=== PATIENT | female | born 1975 | race Caucasian/White ===

== ENCOUNTER → 2017-01-13 | Outpatient (REF) | payer OTHER ==
[2017-01-13 13:59] LABS: CONTROL LINE HCG INT CTR LINE PRESENT
[2017-01-13 14:11] LABS: BLOOD UREA NITROGEN 11 MG/DL (7-18); CREATININE FOR GFR 0.79 MG/DL (0.55-1.02); GLOMERULAR FILTRATION RATE > 60.0 (>58)
== END ==
LOC: M LABDRAW1 12:41
PROVIDERS: ATTEND Physical Medicine & Rehabilitation
DX: Z01.812 Encounter for preprocedural laboratory examination (principal)

== ENCOUNTER → 2017-01-13 | Outpatient (REF) | payer OTHER ==
[2017-01-13 15:22] LABS: ALBUMIN 3.4 GM/DL (3.2-5.2); ALBUMIN/GLOBULIN RATIO 1.21 (1.00-1.93); ALKALINE PHOSPHATASE 85 U/L (45-117); ALT/SGPT 17 U/L (12-78); ANION GAP 11 MEQ/L (8-16); AST/SGOT 11 U/L (15-37); BILIRUBIN,TOTAL 0.5 MG/DL (0.2-1.0); BLOOD UREA NITROGEN 12 MG/DL (7-18); CALCIUM LEVEL 8.7 MG/DL (8.5-10.1); CARBON DIOXIDE LEVEL 26 MEQ/L (21-32); CHLORIDE LEVEL 106 MEQ/L (98-107); CHOLESTEROL LEVEL 189 MG/DL (<200); CREATININE FOR GFR 0.79 MG/DL (0.55-1.02); FREE T4 0.93 NG/DL (0.76-1.46); GLOMERULAR FILTRATION RATE > 60.0 (>58); GLUCOSE, FASTING 93 MG/DL (70-105); POTASSIUM SERUM 4.1 MEQ/L (3.5-5.1); SODIUM LEVEL 143 MEQ/L (136-145); TOTAL PROTEIN 6.2 GM/DL (6.4-8.2); TRIGLYCERIDES LEVEL 139 MG/DL (<150)
== END ==
LOC: M LABDRAW1 12:40
PROVIDERS: ATTEND Physician Assistant Medical
DX: E55.9 Vitamin D deficiency, unspecified (principal); F43.21 Adjustment disorder with depressed mood; R63.5 Abnormal weight gain; E88.81 Metabolic syndrome and other insulin resistance

== ENCOUNTER → 2017-03-13 | Outpatient (REF) | payer OTHER ==
[2017-03-13 12:32] LABS: CONTROL LINE HCG INT CTR LINE PRESENT
== END ==
LOC: M LABDRAW1 11:37
PROVIDERS: ATTEND Physical Medicine & Rehabilitation
DX: Z01.812 Encounter for preprocedural laboratory examination (principal); M47.816 Spondylosis without myelopathy or radiculopathy, lumbar region

== ENCOUNTER → 2017-04-25 | Outpatient (REF) | payer OTHER | LOC: M LAB REF 12:46 | PROVIDERS: ATTEND Physician Assistant Medical | DX: J02.9 Acute pharyngitis, unspecified (principal) ==

== ENCOUNTER → 2017-05-28 | Outpatient (REF) | payer OTHER ==
[2017-05-28 12:32] LABS: INR 0.96
[2017-05-28 12:39] LABS: CONTROL LINE HCG INT CTR LINE PRESENT
== END ==
LOC: M LABDRAW1 12:09
PROVIDERS: ATTEND Physical Medicine & Rehabilitation
DX: Z01.812 Encounter for preprocedural laboratory examination (principal); M51.37 Other intervertebral disc degeneration, lumbosacral region

== ENCOUNTER → 2017-09-15 | Outpatient (REF) | payer OTHER ==
[2017-09-15 12:23] LABS: CONTROL LINE HCG INT CTR LINE PRESENT
== END ==
LOC: M LABDRAW1 09:04
PROVIDERS: ATTEND Physical Medicine & Rehabilitation
DX: M51.37 Other intervertebral disc degeneration, lumbosacral region (principal)

== ENCOUNTER → 2017-09-15 | Outpatient (REF) | payer OTHER | LOC: M LABDRAW1 09:06 | PROVIDERS: ATTEND Physician Assistant Medical | DX: E55.9 Vitamin D deficiency, unspecified (principal) ==

== ENCOUNTER → 2017-12-30 | Outpatient (REF) | payer OTHER ==
[2017-12-31 08:17] LABS: CONTROL LINE HCG INT CTR LINE PRESENT; HCG, SERUM QUALITATIVE NEGATIVE (NEGATIVE)
== END ==
LOC: M LAB REF 08:05
DX: Z31.49 Encounter for other procreative investigation and testing (principal)

== ENCOUNTER → 2018-03-24 | Outpatient (REF) | payer OTHER ==
[2018-03-24 10:51] LABS: PLATELET COUNT, AUTOMATED 237 10^3/uL (150-450)
[2018-03-24 10:59] LABS: PROTHROMBIN TIME 13.3 SECONDS (12.4-14.5)
[2018-03-24 11:00] LABS: PARTIAL THROMBOPLASTIN TIME 30.4 SECONDS (26.8-37.9)
[2018-03-24 11:06] LABS: CONTROL LINE HCG INT CTR LINE PRESENT; HCG, SERUM QUALITATIVE NEGATIVE (NEGATIVE)
== END ==
LOC: M LABDRAW1 09:06
DX: M51.37 Other intervertebral disc degeneration, lumbosacral region (principal)

== ENCOUNTER → 2018-07-17 | Outpatient (REF) | payer OTHER ==
[2018-07-17 15:32] LABS: CONTROL LINE HCG INT CTR LINE PRESENT; HCG, SERUM QUALITATIVE NEGATIVE (NEGATIVE)
== END ==
LOC: M LABDRAW1 11:32
DX: M47.817 Spondylosis without myelopathy or radiculopathy, lumbosacral region (principal)

== ENCOUNTER → 2018-10-13 | Outpatient (REF) | payer OTHER ==
[2018-10-13 12:40] LABS: BASO # 0.1 10^3/uL (0.0-0.2); BASO % 1.1 % (0.0-1.0); EOS # 0.6 10^3/uL (0.0-0.50); EOS % 7.8 % (0.0-3.0); HEMATOCRIT 46.4 % (36.0-47.0); HEMOGLOBIN 15.9 g/dl (12.0-15.5); IMMATURE GRANULOCYTE % 0.3 % (0-3.0); LYMPH # 1.9 10^3/uL (1.5-4.5); LYMPH % 26.8 % (24.0-44.0); MEAN CORPUSCULAR HGB CONC 34.3 g/dl (32.0-36.5); MEAN CORPUSCULAR VOLUME 96.3 fl (80.0-96.0); MONO # 0.7 10^3/uL (0.0-0.8); MONO % 9.3 % (0.0-5.0); NEUTROPHILS # 3.9 10^3/uL (1.8-7.7); NEUTROPHILS % 54.7 % (36.0-66.0); PLATELET COUNT, AUTOMATED 233 10^3/uL (150-450); RED BLOOD COUNT 4.82 10^6/uL (4.00-5.40); RED CELL DISTRIBUTION WIDTH 12.9 % (11.5-14.5); WHITE BLOOD COUNT 7.2 10^3/uL (4.0-10.0)
[2018-10-13 12:54] LABS: ESTIMATED AVERAGE GLUCOSE 105 MG/DL (60-110); HEMOGLOBIN A1c 5.3 %
[2018-10-13 13:00] LABS: ALBUMIN 3.4 GM/DL (3.2-5.2); ALBUMIN/GLOBULIN RATIO 1.26 (1.00-1.93); ALKALINE PHOSPHATASE 64 U/L (45-117); ALT/SGPT 13 U/L (12-78); ANION GAP 6 MEQ/L (8-16); AST/SGOT 9 U/L (7-37); BILIRUBIN,TOTAL 0.6 MG/DL (0.2-1.0); BLOOD UREA NITROGEN 9 MG/DL (7-18); CALCIUM LEVEL 8.4 MG/DL (8.5-10.1); CARBON DIOXIDE LEVEL 28 MEQ/L (21-32); CHLORIDE LEVEL 108 MEQ/L (98-107); CREATININE FOR GFR 0.76 MG/DL (0.55-1.30); FREE T4 0.98 NG/DL (0.76-1.46); GLOMERULAR FILTRATION RATE > 60.0 (>58); GLUCOSE, FASTING 81 MG/DL (70-100); POTASSIUM SERUM 4.1 MEQ/L (3.5-5.1); SODIUM LEVEL 142 MEQ/L (136-145); THYROID STIMULATING HORMONE 0.682 uIU/ML (0.358-3.740); TOTAL 25(OH) VITAMIN D 57.1 NG/ML (30.0-100.0); TOTAL PROTEIN 6.1 GM/DL (6.4-8.2)
== END ==
LOC: M LABDRAW1 11:57
DX: E88.81 Metabolic syndrome and other insulin resistance (principal); E55.9 Vitamin D deficiency, unspecified; R53.83 Other fatigue
CPT/HCPCS: 84443

== ENCOUNTER → 2018-11-18 | Outpatient (REF) | payer OTHER ==
[2018-11-18 11:29] LABS: PARTIAL THROMBOPLASTIN TIME 30.3 SECONDS (25.4-37.6); PROTHROMBIN TIME 13.3 SECONDS (12.1-14.4)
== END ==
LOC: M LABDRAW1 10:51
PROVIDERS: ATTEND Physician Assistant
DX: Z01.812 Encounter for preprocedural laboratory examination (principal)

== ENCOUNTER → 2018-12-15 | Outpatient (REF) | payer OTHER ==
[2018-12-15 19:24] LABS: URINE PREG TEST NEGATIVE (NEGATIVE)
== END ==
LOC: M LAB REF 16:58
PROVIDERS: ATTEND Physical Medicine & Rehabilitation
DX: M51.37 Other intervertebral disc degeneration, lumbosacral region (principal)

== ENCOUNTER → 2019-05-19 | Outpatient (REF) | payer OTHER ==
[2019-05-19 16:10] LABS: HCG, SERUM QUALITATIVE NEGATIVE (NEGATIVE); INR 1.06; PROTHROMBIN TIME 13.5 SECONDS (11.8-14.0)
== END ==
LOC: M LABDRAW1 15:39
PROVIDERS: ATTEND Physical Medicine & Rehabilitation
DX: Z01.812 Encounter for preprocedural laboratory examination (principal)

== ENCOUNTER → 2019-09-08 | Outpatient (REF) | payer OTHER ==
[2019-09-08 16:30] LABS: HCG, SERUM QUALITATIVE NEGATIVE (NEGATIVE)
== END ==
LOC: M LABDRAW1 14:51
PROVIDERS: ATTEND Physician Assistant
DX: M48.061 Spinal stenosis, lumbar region without neurogenic claudication (principal)

== ENCOUNTER → 2019-12-29 | Outpatient (REF) | payer OTHER | LOC: M LABDRAW1 14:35 | PROVIDERS: ATTEND Physical Medicine & Rehabilitation | DX: M48.061 Spinal stenosis, lumbar region without neurogenic claudication (principal) ==

== ENCOUNTER → 2020-04-04 | Outpatient (REF) | payer OTHER ==
[2020-04-04 19:58] LABS: CHLAMYDIA DNA AMPLIFICATION NEGATIVE (NEGATIVE); GC DNA AMPLIFICATION NEGATIVE (NEGATIVE)
== END ==
LOC: M SFHCWAGY 18:08
PROVIDERS: ATTEND Advanced Practice Midwife
DX: Z12.4 Encounter for screening for malignant neoplasm of cervix (principal); R10.2 Pelvic and perineal pain

== ENCOUNTER → 2020-04-13 | Outpatient (CLI) | payer OTHER ==
--- NOTE | 2020-04-13 14:42 | REPMRS ---
Patient History The patient states she had a clinical breast exam in March 2020. Family history of breast cancer at age 36 in maternal grandmother, breast cancer at age 32 in maternal aunt, unknown cancer at age 58 in maternal uncle. Took hormonal contraceptives for 6 years. Digital Woman Screen Mammo: April 13, 2020 - Exam #: [id number] Bilateral CC and MLO view(s) were taken. Technologist: Elizabeth Alcaraz, Technologist Prior study comparison: October 13, 2018, bilateral digital woman screen mammo, performed at [facility]. September 15, 2017, bilateral digital woman screen mammo, performed at [facility]. August 08, 2016, bilateral digital woman screen mammo, performed at [facility]. FINDINGS: There are scattered fibroglandular densities. The Volpara volumetric breast density category is:A. There has been no change in the appearance of the mammogram from the prior studies. There is a mild amount of scattered fibroglandular density which is fairly symmetric. There is no interval development of dominant mass, architectural distortion, or grouped microcalcification suggestive of malignancy. 3-D tomosynthesis shows no additional findings. Assessment: BI-RADS/ACR category 1 mammogram. Negative Mammogram. Recommendation Breast MRI of both breasts in 6 months. Routine screening mammogram of both breasts in 1 year (for women over age 40). This patient's Lifetime Breast Cancer Risk is estimated at 20.6 %. Annual screening Breast MRI scanniing is recommended for patient's whose lifetime risk assessment is over 20%. This mammogram was interpreted with the aid of an FDA-approved computer-aided dectection system. Electronically Signed By: Anastacio Ratliff MD 04/13/20 [id number]
--- NOTE | 2020-04-14 02:21 | REP ---
Clinical: Pelvic pain. Technique: Transabdominal pelvic ultrasound followed by transvaginal examination for better evaluation of the endometrium and adnexa with color Doppler evaluation of the ovaries. Findings: Bladder is unremarkable and measures 7.8 x 7.5 x 4.5 cm . Normal anteverted uterus measures 8.4 x 3.9 x 4.4 cm . The endometrial complex measures 14 mm thickness. No discrete uterine or endometrial abnormalities are appreciated. Bilateral ovaries are normal in appearance and vascularity without evidence for torsion. Right ovary measures 3.4 x 2.8 x 1.6 cm ; R I = 0.62 . Left ovary measures 2.8 x 2.1 x 2.6 cm ; R I = 0.52 . No pelvic fluid or adnexal mass lesion . Impression: 1. Normal pelvic ultrasound.
== END ==
LOC: M WHC 13:30
PROVIDERS: ATTEND Advanced Practice Midwife
DX: Z12.31 Encounter for screening mammogram for malignant neoplasm of breast (principal); R10.2 Pelvic and perineal pain; Z92.0 Personal history of contraception

== ENCOUNTER → 2021-03-27 | Outpatient (REF) | payer OTHER ==
[2021-03-27 17:20] LABS: BASO # 0.1 10^3/uL (0.0-0.2); BASO % 0.9 % (0.0-1.0); EOS # 0.7 10^3/uL (0.0-0.5); EOS % 8.7 % (0.0-3.0); HEMATOCRIT 49.7 % (36.0-47.0); HEMOGLOBIN 16.1 g/dl (12.0-15.5); LYMPH # 2.1 10^3/uL (1.5-5.0); LYMPH % 27.1 % (24.0-44.0); MEAN CORPUSCULAR HEMOGLOBIN 31.1 pg (27.0-33.0); MEAN CORPUSCULAR HGB CONC 32.4 g/dl (32.0-36.5); MEAN CORPUSCULAR VOLUME 95.9 fl (80.0-96.0); MONO # 0.7 10^3/uL (0.0-0.8); MONO % 8.4 % (2.0-8.0); NEUTROPHILS # 4.3 10^3/uL (1.5-8.5); NEUTROPHILS % 54.3 % (36.0-66.0); PLATELET COUNT, AUTOMATED 278 10^3/uL (150-450); RED BLOOD COUNT 5.18 10^6/uL (4.00-5.40); WHITE BLOOD COUNT 7.9 10^3/uL (4.0-10.0)
[2021-03-27 18:03] LABS: ALBUMIN 3.1 GM/DL (3.2-5.2); ALT/SGPT 21 U/L (12-78); BILIRUBIN,DIRECT 0.2 MG/DL (0.0-0.2); BILIRUBIN,TOTAL 0.7 MG/DL (0.2-1.0); BLOOD UREA NITROGEN 10 MG/DL (7-18); CALCIUM LEVEL 8.8 MG/DL (8.5-10.1); CARBON DIOXIDE LEVEL 29 MEQ/L (21-32); CHLORIDE LEVEL 106 MEQ/L (98-107); CHOLESTEROL LEVEL 237 MG/DL (<200); CHOLESTEROL RISK RATIO 5.152 (<5); GLOMERULAR FILTRATION RATE > 60.0 (>58); GLUCOSE, FASTING 93 MG/DL (70-100); GLUCOSE,RANDOM 93 MG/DL (LESS THAN 200); HDL CHOLESTEROL 46 MG/DL (>40); LDL CHOLESTEROL 150 MG/DL (<100); NON-HDL-C 191 MG/DL; PHOSPHORUS LEVEL 3.5 MG/DL (2.5-4.9); POTASSIUM SERUM 4.3 MEQ/L (3.5-5.1); SODIUM LEVEL 142 MEQ/L (136-145); TOTAL PROTEIN 6.6 GM/DL (6.4-8.2); TRIGLYCERIDES LEVEL 207 MG/DL (<150)
[2021-03-27 18:06] LABS: TOTAL 25(OH) VITAMIN D 20.2 NG/ML (30.0-100.0)
[2021-03-27 18:35] LABS: HEMOGLOBIN A1c 5.3 %
== END ==
LOC: M LAB REF 16:29
PROVIDERS: ATTEND Registered Nurse
DX: F31.4 Bipolar disorder, current episode depressed, severe, without psychotic features (principal); Z51.81 Encounter for therapeutic drug level monitoring; Z13.9 Encounter for screening, unspecified; E55.9 Vitamin D deficiency, unspecified; Z79.899 Other long term (current) drug therapy

== ENCOUNTER → 2021-03-27 | Outpatient (REF) | payer OTHER ==
[2021-03-27 17:30] LABS: BASO # 0.1 10^3/uL (0.0-0.2); BASO % 0.9 % (0.0-1.0); EOS # 0.7 10^3/uL (0.0-0.5); EOS % 8.9 % (0.0-3.0); HEMATOCRIT 49.5 % (36.0-47.0); HEMOGLOBIN 15.9 g/dl (12.0-15.5); LYMPH # 2.2 10^3/uL (1.5-5.0); LYMPH % 27.5 % (24.0-44.0); MEAN CORPUSCULAR HEMOGLOBIN 30.9 pg (27.0-33.0); MEAN CORPUSCULAR HGB CONC 32.1 g/dl (32.0-36.5); MEAN CORPUSCULAR VOLUME 96.3 fl (80.0-96.0); MONO # 0.6 10^3/uL (0.0-0.8); MONO % 7.9 % (2.0-8.0); NEUTROPHILS # 4.3 10^3/uL (1.5-8.5); NEUTROPHILS % 54.4 % (36.0-66.0); PLATELET COUNT, AUTOMATED 299 10^3/uL (150-450); RED BLOOD COUNT 5.14 10^6/uL (4.00-5.40); WHITE BLOOD COUNT 7.9 10^3/uL (4.0-10.0)
[2021-03-27 18:03] LABS: ALBUMIN 3.2 GM/DL (3.2-5.2); ALT/SGPT 20 U/L (12-78); BILIRUBIN,TOTAL 0.7 MG/DL (0.2-1.0); BLOOD UREA NITROGEN 10 MG/DL (7-18); CALCIUM LEVEL 9.2 MG/DL (8.5-10.1); CARBON DIOXIDE LEVEL 29 MEQ/L (21-32); CHLORIDE LEVEL 104 MEQ/L (98-107); CHOLESTEROL LEVEL 229 MG/DL (<200); CHOLESTEROL RISK RATIO 5.088 (<5); CREATININE FOR GFR 0.76 MG/DL (0.55-1.30); GLOMERULAR FILTRATION RATE > 60.0 (>58); GLUCOSE, FASTING 97 MG/DL (70-100); HDL CHOLESTEROL 45 MG/DL (>40); LDL CHOLESTEROL 144 MG/DL (<100); NON-HDL-C 184 MG/DL; POTASSIUM SERUM 4.2 MEQ/L (3.5-5.1); SODIUM LEVEL 141 MEQ/L (136-145); TOTAL PROTEIN 6.6 GM/DL (6.4-8.2); TRIGLYCERIDES LEVEL 202 MG/DL (<150)
[2021-03-27 18:05] LABS: TOTAL 25(OH) VITAMIN D 21.8 NG/ML (30.0-100.0)
== END ==
LOC: M SFHCADAM 15:08
PROVIDERS: ATTEND Physician Assistant Medical
DX: E66.01 Morbid (severe) obesity due to excess calories (principal); M41.26 Other idiopathic scoliosis, lumbar region; F31.9 Bipolar disorder, unspecified; F41.9 Anxiety disorder, unspecified

== ENCOUNTER → 2021-05-08 | Outpatient (CLI) | payer OTHER ==
[~2021-05-08] MED LIST: PROHANCE 279.3MG/ML 15ML VIAL As Ordered ONE; PROHANCE 279.3MG/ML 5ML VIAL As Ordered ONE
--- NOTE | 2021-05-08 20:10 | REPVR ---
PROCEDURE INFORMATION: Exam: MR Lumbar Spine Without and With Contrast Exam date and time: 05/08/2021 7:06 PM Age: 45 years old Clinical indication: Prior surgery; Surgery date: 6+ months; Patient HX: Low back pain, pain injections no longer helping, PT had spinal fusion 2016; Additional info: Deviated nasal septum TECHNIQUE: Imaging protocol: Multiplanar magnetic resonance images of the lumbar spine without and with intravenous contrast. Contrast material: PROHANCE; Contrast volume: 20 ml; Contrast route: INTRAVENOUS (IV); COMPARISON: No relevant prior studies available. FINDINGS: Vertebrae: There is a T12 hemangioma. Extensive hardware susceptibility artifacts limiting visualization of the vertebral bodies from L1 through L5. Prior posterolateral fusion and posterior pedicle screw fixation from L1-L2 through L4-L5. Prior interbody grafting at L3-L4 and L4-L5. 4 mm of degenerative retrolisthesis of L5 on S1. No visible acute fracture. Spinal cord: The conus medullaris ends normally. Mild disc height loss and spondylosis with likely endplate inflammation at L5-S1. L1-L2: The central spinal canal and foramina are not visualized. L2-L3: The central spinal canal and foramina are not visualized. L3-L4: The central spinal canal and foramina are not visualized. L4-L5: Postoperative changes. The central spinal canal and foramina are patent. L5-S1: Diffuse disc osteophyte complex as well as marked facet arthropathy with facet joint effusions. Broad-based cranially migrating left-sided disc extrusion demonstrating paracentral to foraminal components measuring approximately 4-5 mm in AP dimension and extending 4-5 mm above the disc space. No significant central spinal canal stenosis. The thecal sac is tapered by epidural fat. Disc material contacts the left S1 nerve root without compression or displacement. Poor visualization of the left neural foramen due to hardware susceptibility artifacts. There may be mild to moderate narrowing, disc material potentially contacting the exiting left L5 nerve root. Soft tissues: Posterior paravertebral fluid collection seen from the levels of L2 through L4 spanning a craniocaudal length of 8.6 cm and measuring up to 1.8 cm in AP dimension, potentially non-compressive seroma. No visible significant enhancement. Reproductive: The visualized left ovary demonstrates small follicles. IMPRESSION: 1. Limited study due to hardware artifacts. 2. Degenerative disc disease at L5-S1, the level below a lumbar fusion. 3. Suspect a component of cranially migrating left-sided disc extrusion, disc material may contact the exiting left L5 nerve root. 4. Severe L5-S1 facet arthropathy with facet joint effusions. Electronically signed by: Eden Freeman On 05/08/2021 20:10:33 PM
== END ==
LOC: M RAD 17:47
PROVIDERS: ATTEND Nurse Practitioner Family
DX: M54.16 Radiculopathy, lumbar region (principal)
CPT/HCPCS: 72158; A9576

== ENCOUNTER → 2021-07-03 | Outpatient (REF) | payer OTHER ==
[2021-07-03 17:59] LABS: BASO # 0.1 10^3/uL (0.0-0.2); BASO % 0.6 % (0.0-1.0); EOS # 0.2 10^3/uL (0.0-0.5); EOS % 2.1 % (0.0-3.0); HEMATOCRIT 50.6 % (36.0-47.0); LYMPH # 4.1 10^3/uL (1.5-5.0); LYMPH % 38.1 % (24.0-44.0); MEAN CORPUSCULAR HEMOGLOBIN 31.9 pg (27.0-33.0); MEAN CORPUSCULAR HGB CONC 33.6 g/dl (32.0-36.5); MEAN CORPUSCULAR VOLUME 94.9 fl (80.0-96.0); MONO # 0.8 10^3/uL (0.0-0.8); MONO % 7.2 % (2.0-8.0); NEUTROPHILS # 5.6 10^3/uL (1.5-8.5); NEUTROPHILS % 51.7 % (36.0-66.0); PLATELET COUNT, AUTOMATED 278 10^3/uL (150-450); RED BLOOD COUNT 5.33 10^6/uL (4.00-5.40); WHITE BLOOD COUNT 10.7 10^3/uL (4.0-10.0)
[2021-07-03 18:11] LABS: INR 0.91; PROTHROMBIN TIME 12.6 SECONDS (12.7-14.5)
[2021-07-03 18:12] LABS: PARTIAL THROMBOPLASTIN TIME 26.5 SECONDS (25.9-37.0)
[2021-07-03 18:26] LABS: ALBUMIN 3.2 GM/DL (3.2-5.2); ALT/SGPT 45 U/L (12-78); BILIRUBIN,TOTAL 0.9 MG/DL (0.2-1.0); BLOOD UREA NITROGEN 11 MG/DL (7-18); CALCIUM LEVEL 8.5 MG/DL (8.5-10.1); CARBON DIOXIDE LEVEL 25 MEQ/L (21-32); CHLORIDE LEVEL 106 MEQ/L (98-107); CREATININE FOR GFR 0.82 MG/DL (0.55-1.30); GLOMERULAR FILTRATION RATE > 60.0 (>58); GLUCOSE, FASTING 88 MG/DL (70-100); NT-PRO BNP 93 PG/ML (<125); POTASSIUM SERUM 3.9 MEQ/L (3.5-5.1); SODIUM LEVEL 140 MEQ/L (136-145); TOTAL PROTEIN 6.2 GM/DL (6.4-8.2)
[2021-07-03 18:27] LABS: VITAMIN B12 LEVEL 361 PG/ML (247-911)
[2021-07-03 18:45] LABS: HEMOGLOBIN A1c 5.3 %
== END ==
LOC: M LABDRWAD 16:39
PROVIDERS: ATTEND Family Medicine
DX: E66.01 Morbid (severe) obesity due to excess calories (principal)

== ENCOUNTER → 2021-07-06 | Outpatient (CLI) | payer OTHER | LOC: M LABSMTC 12:14 | PROVIDERS: ATTEND Orthopaedic Surgery Orthopaedic Surgery of the Spine | DX: Z11.52 Encounter for screening for COVID-19 (principal) ==

== ENCOUNTER 2021-09-05 16:36 | Emergency (ER) | payer OTHER ==
[~2021-09-05] VITALS: Ht 165.1 cm; Wt 124.4 kg
[2021-09-05 16:38] VITALS: BP 119/65
[2021-09-05] MEDS ORDERED: PREG100C (16:47)
[2021-09-05] MEDS ORDERED: DULO1CAP5 (16:47)
[2021-09-05] MEDS ORDERED: LATU120T (16:47)
[2021-09-05] MEDS ORDERED: CELE1CAP7 (16:47)
--- OUTSIDE RECORDS SUMMARY | 2021-10-31 07:01 | CCD ---
Author Author [employer] Organization [employer] Address Unknown Phone Unavailable Care Team Providers Care Mechanic Assistant Name Role Phone Unavailable Unavailable Problems Condition Name Condition Details Condition Category Status Onset Date Resolution Date Last Treatment Date Treating Clinician Comments Postlaminectomy syndrome, not elsewhere classified Pos tlaminectomy syndrome, not elsewhere classified Diagnosis Active Fanny Co oley Encounter for adjustment and management of vascular ac cess device Encounter for adjustment and management of vascular access device Diagnosis Active Fanny White [facility] (current) use of antibiotics [facility] (current) u se of antibiotics Diagnosis Active Fanny White Other forms of scoliosis, lumbar region Other forms of scoli osis, lumbar region Diagnosis Active Fanny White Radiculopathy, lumbar region Radiculopathy, lumbar region Diagnosis Ac tive Fanny White Encounter for change or removal of surgical wound dres sing Encounter for change or removal of surgical wound dressing Diagnosis Active Fanny White Constipation, unspecified Constipation, unspecified Diagnosis Active Fanny White Major depressive disorder, recurrent, unspecified Shirlene r depressive disorder, recurrent, unspecified Diagnosis Active Fanny White Anxiety disorder, unspecified Anxiety disorder, unspecified Diagnosis Active Fanny White Pain frequent pain Pain Mgmt Active 2021-10-12 14:24:00 Lily Keegan Integument surgical wound present Integument Active 2021-10-12 14:24:00 Lily Keegan Integument knowledge/skill deficit: pt Integument Active 2021-10-12 14:24:00 Lily Keegan Integument knowledge/skill deficit: cg Integument Active 2021-10-12 14:24:00 Lily Keegan Elimination knowledge/skill deficit: pt Elimination Active 2020-11 14:24:00 Lily Keegan Activity ADL assistance required Activity Active 2021-10-12 14:24:00 Lily Keegan Activity self-care deficit Activity Active 2021-10-12 14:24:00 Lily Keegan Safety structural barriers present Safety Active 2021-10-12 14:24:00 Lily Keegan Safety knowledge/skill deficit: pt Safety Active 2021-10-12 14:24:00 Lily Keegan Safety fall risk factor present Safety Active 2021-10-12 14:24:00 Lily Keegan Safety risk for hospitalization Safety Active 2021-10-12 14:24:00 Lily Keegan Medication oral med assistance required Meds Active 2021-10-12 14:24 :00 Lily Keegan Medication knowledge/skill deficit: pt Meds Active 2021-10-12 14:24: 00 Lily Keegan Medication potential clinically significant medication issue Meds Active 2021-10-12 14:24:00 Lily Harmanderick IV IV present IV Active 2021-10-12 14:24:00 J tosha Keegan Diagnoses knowledge/skill deficit: pt Diagnoses Active 2021-10-12 14:24 :00 Lily Keegan Musculoskeletal transfer assistance required Musculoskeletal Active 2021-10-12 14:24:00 Lily Keegan Musculoskeletal knowledge/skill deficit: pt Musculoskeletal Active 2021-10-12 14:24:00 Lily Keegan Musculoskeletal requires human assist to leave home Musculoskeletal Active 2021-10-12 14:24:00 Lily Keegan Allergies, Adverse Reactions, Alerts Allergy Name Allergy Type Status Severity Reaction(s) Onset Date Inacti ve Date Treating Clinician Comments Unknown None Active Unknown None Unknown No Known Allergies For This Patient Medications Ordered Medication Name Filled Medication Name Start Date Stop Da te Current Medication? Ordering Clinician Indication Dosage Frequency Signature (SIG) Comments Components celecoxib 200 mg capsule celecoxib 200 mg capsule 2021-10-12 Yes MILEY MAHAPATRA Unknown Unknown oxacillin 12 gram/240 mL NS oxacillin 12 gram/240 mL NS 2021-10-12 Yes MILEY MAHAPATRA Unknown Unknown docusate sodium 100 mg capsule docusate sodium 100 mg capsule 2021-09 Yes MILEY MAHAPATRA Unknown Unknown DULoxetine 60 mg capsule,delayed release DULoxetine 60 mg capsule,delayed release 2021-10-12 Yes MILEY GARCIA Unknown Unknown Vitamin D3 50 mcg (2,000 unit) tablet Vitamin D3 50 mcg (2,0 00 unit) tablet 2021-10-12 Yes MILEY REGANAPATRA Unknown Unknown heparin lock flush (porcine) 100 unit/mL intravenous s olution heparin lock flush (porcine) 100 unit/mL intravenous solution 2021-10-12 Yes ANDI QUINTEROTRA Unknown Unknown Latuda 80 mg tablet Latuda 80 mg tablet 2021-10-12 Yes MILEY QUINTEROTRA Unknown Unknown Lyrica 100 mg capsule Lyrica 100 mg capsule 2021-10-12 Yes R AMINA REGANAPATRA Unknown Unknown oxyCODONE-acetaminophen 5 mg-325 mg tablet oxyCODONE-a cetaminophen 5 mg-325 mg tablet 2021-10-12 Yes MILEY QUINTEROTRA Unknown Unknown potassium chloride ER 20 mEq tablet,extended release(p art/cryst) potassium chloride ER 20 mEq tablet,extended release(part/cryst) 2021-10-12 Yes MILEY QUINTEROTRA Unknown Unknown senna 8.6 mg tablet senna 8.6 mg tablet 2021-10-12 Yes MILEY QUINTEROTRA Unknown Unknown sodium chloride 0.9 % (flush) injection syringe sodium chloride 0.9 % (flush) injection syringe 2021-10-12 Yes MILEY QUINTEROTRA Unknown Unknow n polyethylene glycol 3350 17 gram/dose oral powder poly ethylene glycol 3350 17 gram/dose oral powder 2021-10-15 Yes MILEY QUINTEROTRA Unknown Un known rifAMPin 300 mg capsule rifAMPin 300 mg capsule 2021-10-15 Yes MILEY QUINTEROTRA Unknown Unknown Vital Signs Vital Name Observation Time Observation Value Comments SYSTOLIC mm[Hg] 2021-10-24 18:: 108 mm[Hg] mm[Hg] Method: Si t DIASTOLIC mm[Hg] 2021-10-24 18:21: 64 mm[Hg] mm[Hg] Method: Si t PULSE 2021-10-24 18:21:19 76 /min /min RESP RATE 2021-10-24 18:21: 18 /min /min TEMP 2021-10-24 18:21: 96.4 [degF] Procedures This patient has no known procedures. Results This patient has no known results.
--- OUTSIDE RECORDS SUMMARY | 2021-10-31 07:01 | CCD ---
Author Author [employer] Organization [employer] Address Unknown Phone Unavailable Care Team Providers Care Railroad Car Cleaner Name Role Phone Unavailable Unavailable Problems Condition Name Condition Details Condition Category Status Onset Date Resolution Date Last Treatment Date Treating Clinician Comments Postlaminectomy syndrome, not elsewhere classified Pos tlaminectomy syndrome, not elsewhere classified Diagnosis Active Fanny Co oley Encounter for adjustment and management of vascular ac cess device Encounter for adjustment and management of vascular access device Diagnosis Active Fanny White [facility] (current) use of antibiotics [facility] (current) u se of antibiotics Diagnosis Active [...] Latuda 80 mg tablet 2021-10-12 Yes MILEY REGANAPATRA Unknown Unknown Lyrica 100 mg capsule Lyrica [...] Observation Time Observation Value Comments SYSTOLIC mm[Hg] 2021-10-29 18:21:24 124 mm[Hg] mm[Hg] Method: Si t DIASTOLIC mm[Hg] 2021-10-29 18:21:24 68 mm[Hg] mm[Hg] Method: Si t PULSE 2021-10-29 18:21:24 80 /min /min RESP RATE 2021-10-29 18:21:24 20 /min /min TEMP 2021-10-29 18:21:24 98.1 [degF] Procedures This patient has no known procedures. Results This patient has no known results.
--- OUTSIDE RECORDS SUMMARY | 2021-10-31 07:01 | CCD ---
Author Author [facility] Organization [facility] Address Unknown Phone Unavailable Care Team Providers Care Boiling Tub Operator Name Role Phone Kimberlee Fisher Unavailable PROBLEMS Type Condition ICD9-CM Code SUD99-FE Code Onset Dates Condition S tatus W/U Status Risk SNOMED Code Notes Problem Scoliosis of lumbar region d ue to degenerative disease of spine in adult M41.56 Active confirmed 589918253 Problem Vitamin D deficiency disease E55.9 Active confirme d 21586202 Problem Bipolar depression F31.9 Active confirmed 7 74431263 Problem Psychophysiological insomnia F51.04 Active confirme d 628208450 Problem Recurrent major depressive disorder, in partial remission F33.41 Active confirmed 81665784 Problem Morbid obesity due to excess calories E66.01 Ac tive confirmed 848538849 Problem Cigarette nicotine dependence without complication F17.210 Active confirmed 65838878 Problem Lumbago with sciatica, left side M54.42 Active confirmed 082493485 Problem Lumbago with sciatica, right side M54.41 Active confirmed [id number] Problem Other idiopathic scoliosis, lumbar region M41.26 Active confirmed 530766711 Problem Acute left-sided low back pain with left-sided sciatica M54.42 Active confirmed 996206928 Problem Morbid obesity E66.01 Active confirmed 85975 6002 Problem Fever and chills R50.9 Active confirmed 274 047833 Problem Anxiety F41.9 Active confirmed 14782492 Problem Other chronic pain G89.29 Active confirmed 8 7178126 Problem Mixed hyperlipidemia E78.2 Active confirmed 210832392 Problem Lumbar spondylosis M47.816 Active confirmed 931117805 Problem Discitis of lumbar region M46.46 Active confirmed 972341300 ALLERGIES No Known Allergies ENCOUNTERS from 1976 to 2021-10-24 Encounter Location Date Provider Diagnosis [address] [place] [id number] Sep, Kimberlee Fisher Morbid obesity due to excess calories E6 6.01 ; Mixed hyperlipidemia E78.2 ; Cigarette nicotine dependence without complication F17.210 ; Recurrent major depressive disorder, in partial remission F33.41 ; Bipolar depression F31.9 ; Anxiety F41.9 ; Vitamin D deficiency disease E55.9 and Discitis of lumbar region M46.46 IMMUNIZATIONS Vaccine Route Administration Date Status COVID-19 dose #2 given elsewhere Unspecified Unknown Apr 2020 Administered COVID-19 dose #1 given elsewhere Unspecified Unknown Mar ch 2020 Administered SOCIAL HISTORY Tobacco Use: Social History Observation Description Date Details (start date - stop date) Former Smoker Sex Assigned At : Social History Observation Description Sex Assigned At Unknown Audit Question Answer Notes Total Score: 0 Interpretation: Alcohol Education Language: Question Answer Notes Languages spoken: [place] [facility] Question Answer Notes Total Score: 2 Interpretation: Low level Alcohol Screening: Question Answer Notes Did you have a drink containing alcohol in the past year? No Points 0 Interpretation Negative BMI Care Goal Follow-Up Question Answer Notes Above Normal BMI Follow-Up Dietary management educatio n, guidance, and counseling Tobacco Use: Question Answer Notes Are you a: former smoker How long has it been since you last smoked? 1-5 years REASON FOR REFERRAL No Information VITAL SIGNS Weight 283 lbs Sep, Height 65 in Sep, BMI 47.09 kg/m2 Sep, Heart Rate 110 /min Sep, Respiratory Rate 20 /min Sep, Temperature 96.7 degrees Fahrenheit Sep, Oximetry 100 Sep, Blood pressure systolic 128 mm Hg Sep, Blood pressure diastolic 80 mm Hg Sep, MEDICATIONS Medication SIG (Take, Route, Frequency, Duration) Notes Start Da te End Date Status rifAMPin 300 MG 1 capsule Orally twice a day Active Celecoxib 200 MG 1 capsule with food Orally Twice a day Active Latuda 120 MG 1 tablet with food Orally Once a day Active Vitamin D 50 MCG (1999 UT) 1 tablet Orally Once a day for 30 day (s) March, Active Pregabalin 100 MG 1 capsule Orally three times a day Active PROCEDURES No Information RESULTS No Results REASON FOR VISIT 6 month MEDICAL (GENERAL) HISTORY Type Description Date Medical History scoliosis - 30 %, DDD, lumbar - Dr Alvarado hernandez/ [facility] Medical History Bipolar/Depression/Anxiety/Insomnia Medical History morbid obesity Medical History angelo dep Medical History neuropathy of BLE Medical History Vit d def Medical History Herpes simplex Surgical History achilles tendon repair - left Surgical History cholecystectomy Surgical History bilateral carpal tunnel release Surgical History right ankle s/p fracture Surgical History spinal fusion 05/2020,07/11/21 Surgical History back infection surgery 10/13/21 Hospitalization History see surgeries Hospitalization History [facility] 09/2021 Goals Section No Information Health Concerns No Information MEDICAL EQUIPMENT No Information MENTAL STATUS No Information FUNCTIONAL STATUS No Information ASSESSMENTS Encounter Date Diagnosis Assessment Notes Treatment Notes Treatm ent Clinical Notes Sep, Morbid obesity due to excess calories (ICD-10 - E66.01) Pt was counselled on the importance of diet and exercise in maintaining a healthy weight and that patients weight currently poses a health risk. Pt verbalizes understanding Sep, Mixed hyperlipidemia (ICD-10 - E78.2) Enc low fat diet, due for BW prior to f/u. Sep, Cigarette nicotine dependenc e without complication (ICD-10 - F17.210) Pt counselled heavily on the importance of tobacco abstinence and the dangers not quiting may pose. Discussed various options for cessation with patient. Sep, Recurrent major depressive d isorder, in partial remission (ICD-10 - F33.41) Moods stable, follows with Psych. Sep, Bipolar depression (ICD-10 - F31.9) Sep, Anxiety (ICD-10 - F41.9) Sep, Vitamin D deficiency disease (ICD-10 - E55.9) Sep, Discitis of lumbar region (ICD-10 - M46.46) Current mgmt per ortho/ID, has f/u appts scheduled, Home care assisting pt in the hoem. PLAN OF TREATMENT Treatment Notes Assessment Notes Clinical Notes Morbid obesity due to excess calories Pt was counselled on the importance of diet and exercise in maintaining a healthy weight and that patients weight currently poses a health risk. Pt verbalizes understanding Mixed hyperlipidemia Enc low fat diet, d ue for BW prior to f/u. Cigarette nicotine dependence without complication Pt counselled heavily on the importance of tobacco abstinence and the dangers not quiting may pose. Discussed various options for cessation with patient. Recurrent major depressive disorder, in partial remission Moods stable, follows with Psych. Discitis of lumbar region Current mgmt p er ortho/ID, has f/u appts scheduled, Home care assisting pt in the hoem. Future Test Test Name Order Date CBC with Differential 20220415 Comprehensive Metabolic Profile (CMP) 20220415 HEMOGLOBIN A1c 20220415 LIPID PANEL (CARDIAC RISK) 20220415 VITAMIN D 25-HYDROXY 20220415 TSH 20220415 Next Appt Details 2-3 months Reason: Provider Name:Kimberlee Fisher, 2022-01-08 11:30:00 AM, [address], , [place], [address], Insurance Providers Payer Name Payer Address Payer Phone Insured Name Patient Relati onship to Insured Coverage Start Date Coverage End Date FORMERLY [facility] [employer] [address] [facility] [id number] HESHAM JOHN self
--- OUTSIDE RECORDS SUMMARY | 2021-10-31 07:01 | CCD ---
Author Author [employer] Organization [employer] Address Unknown Phone Unavailable Care Team Providers Care Drilling Superintendent Name Role Phone Unavailable Unavailable Problems Condition Name Condition Details Condition Category Status Onset Date Resolution Date Last Treatment Date Treating Clinician Comments Postlaminectomy syndrome, not elsewhere classified Pos tlaminectomy syndrome, not elsewhere classified Diagnosis Active Fanny Co oley Encounter for adjustment and management of vascular ac cess device Encounter for adjustment and management of vascular access device Diagnosis Active Fanny White residential (current) use of antibiotics residential (current) u se of antibiotics Diagnosis Active [...]
--- OUTSIDE RECORDS SUMMARY | 2021-10-31 07:02 | CCD ---
Author Author [facility] Organization [facility] Address Unknown Phone Unavailable Care Team Providers Care Principal Systems Architect Name Role Phone Kimberlee Fisher Unavailable PROBLEMS Type Condition ICD9-CM Code [id number] Code Onset Dates Condition S tatus W/U Status Risk SNOMED Code Notes Problem Bipolar depression F31.9 Active confirmed 7 27300742 Problem Scoliosis of lumbar region d ue to degenerative disease of spine in adult M41.56 Active confirmed 064657570 Problem Recurrent major depressive disorder, in partial remission F33.41 Active confirmed 49278379 Problem Vitamin D deficiency disease E55.9 Active confirme d 54735595 Problem Morbid obesity due to excess calories E66.01 Ac tive confirmed 844320824 Problem Anxiety F41.9 Active confirmed 20361093 Problem Morbid obesity E66.01 Active confirmed 26976 6002 Problem Mixed hyperlipidemia E78.2 Active confirmed 267274050 Problem Psychophysiological insomnia F51.04 Active confirme d 505065457 Problem Lumbar spondylosis M47.816 Active confirmed 046008633 Problem Cigarette nicotine dependence without complication F17.210 Active confirmed 52735545 Problem Lumbago with sciatica, left side M54.42 Active confirmed 257302825 Problem Lumbago with sciatica, right side M54.41 Active confirmed 106292101392795 Problem Other idiopathic scoliosis, lumbar region M41.26 Active confirmed 278589839 Problem Other chronic pain G89.29 Active confirmed 8 [id number] ALLERGIES No Known Allergies ENCOUNTERS from 1975 to 2021-08-03 Encounter Location Date Provider Diagnosis [address] [place] [address] Jul, Kimberlee Fisher Vitamin D deficiency disease E55.9 IMMUNIZATIONS Vaccine Route Administration Date Status COVID-19 dose #2 given elsewhere Unspecified Unknown Apr il 2020 Administered COVID-19 dose #1 given elsewhere Unspecified Unknown Mar 2020 Administered SOCIAL HISTORY Tobacco Use: Social History Observation Description Date Details (start date - stop date) Former Smoker Sex Assigned At : Social History Observation Description Sex Assigned At Unknown Audit Question Answer Notes Total Score: 0 Interpretation: Alcohol Education Language: Question Answer Notes Languages spoken: Rwandan Drug and Alcohol Question Answer Notes Total [...] REASON FOR REFERRAL No Information VITAL SIGNS No information MEDICATIONS Medication SIG (Take, Route, Frequency, Duration) Notes Start Da te End Date Status Vitamin D 50 MCG (1999) 1 tablet Orally Once a day for 30 day (s) March, Active Latuda 120 MG 1 tablet with food Orally Once a day Active Pregabalin 100 MG 1 capsule Orally three times a day Active Celecoxib 200 MG 1 capsule with food Orally Twice a day Active PROCEDURES No Information RESULTS No Results REASON FOR VISIT New Refill Request MEDICAL (GENERAL) HISTORY Type Description Date Medical [...] ankle s/p fracture Surgical History spinal fusion 05/2020 Hospitalization History see surgeries Goals Section No Information Health Concerns No Information MEDICAL EQUIPMENT No Information MENTAL STATUS No Information FUNCTIONAL STATUS No Information ASSESSMENTS Encounter Date Diagnosis Assessment Notes Treatment Notes Treatm ent Clinical Notes Jul, Vitamin D deficiency disease (ICD-10 - E55.9) PLAN OF TREATMENT Medication Medication Name Sig Start Date Stop Date Vitamin D 50 MCG (1999) 1 tablet Orally Once a day for 30 day(s) March, Pregabalin 100 MG 1 capsule Orally three times a day Celecoxib 200 MG 1 capsule with food Orally Twice a day Latuda 120 MG 1 tablet with food Orally Once a day Next Appt Details Provider Name:Kimberlee Fisher, 2021-10-16 10:30:00 AM, [address] , [place], [address], Insurance Providers Payer Name Payer Address Payer Phone Insured Name Patient Relati onship to Insured Coverage Start Date Coverage End Date [facility] [address] [facility] [phone] HESHAM JOHN self
--- OUTSIDE RECORDS SUMMARY | 2021-10-31 07:02 | CCD ---
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 Name Role Phone Maya Spears Unavailable PROBLEMS Type Condition ICD9-CM Code [id number] Code Onset Dates Condition S tatus W/U Status Risk SNOMED Code Notes Problem Psychophysiological insomnia F51.04 Active confirme d 768941887 Problem Scoliosis of lumbar region d ue to degenerative disease of spine in adult M41.56 Active confirmed 414698073 Problem Vitamin D deficiency disease E55.9 Active confirme d 87740666 Problem Bipolar depression F31.9 Active confirmed 7 38230142 Problem Cigarette nicotine dependence without complication F17.210 Active confirmed 33688114 Problem Recurrent major depressive disorder, in partial remission F33.41 Active confirmed 45442516 Problem Morbid obesity E66.01 Active confirmed 83668 6002 Problem Lumbago with sciatica, left side M54.42 Active confirmed 765318002 Problem Lumbago with sciatica, right side M54.41 Active confirmed 750281344149095 Problem Acute left-sided low back pain with left-sided sciatica M54.42 Active confirmed 560773210 Problem Anxiety F41.9 Active confirmed 72831207 Problem Fever and chills R50.9 Active confirmed 274 735889 Problem Morbid obesity due to excess calories E66.01 Ac tive confirmed 543428432 Problem Other idiopathic scoliosis, lumbar region M41.26 Active confirmed 322252150 Problem Other chronic pain G89.29 Active confirmed 8 8453790 Problem Mixed hyperlipidemia E78.2 Active confirmed 539044899 Problem Lumbar spondylosis M47.816 Active confirmed [id number] ALLERGIES No Known Allergies ENCOUNTERS from 1975 to 2021-10-04 Encounter Location Date Provider Diagnosis [id number] [place] [address] Sep, Maya Spears IMMUNIZATIONS Vaccine Route Administration Date Status COVID-19 [...] Education Language: Question Answer Notes Languages spoken: Polish Drug and Alcohol Question Answer Notes Total [...] Notes Start Da te End Date Status Celecoxib 200 MG 1 capsule with food Orally Twice a day Active Pregabalin 100 MG 1 capsule Orally three times a day Active Latuda 120 MG 1 tablet with food Orally Once a day Active Vitamin D 50 MCG (1999 [place]) 1 tablet Orally Once a day for 30 day (s) March, Active PROCEDURES No Information RESULTS No Results REASON FOR VISIT labs MEDICAL (GENERAL) HISTORY Type Description Date Medical History scoliosis - 30 %, DDD, lumbar - Dr Childers lle/ [facility] Medical History Bipolar/Depression/Anxiety/Insomnia Medical History morbid obesity Medical History angelo dep Medical History neuropathy of BLE Medical History Vit d def Medical History Herpes simplex Surgical History achilles tendon repair - left Surgical History cholecystectomy Surgical History bilateral carpal tunnel release Surgical History right ankle s/p fracture Surgical History spinal fusion 05/2020,07/11/21 Hospitalization History see surgeries Goals Section No Information Health Concerns No Information MEDICAL EQUIPMENT No Information MENTAL STATUS No Information FUNCTIONAL STATUS No Information ASSESSMENTS No Information PLAN OF TREATMENT Next Appt Details Provider Name:Kimberlee Fisher, 2021-10-16 10:30:00 AM, [address], , [place], [phone], Insurance Providers Payer Name Payer Address Payer Phone Insured Name Patient Relati onship to Insured Coverage Start Date Coverage End Date [facility] [address] [facility] [phone] HESHAM JOHN self
--- OUTSIDE RECORDS SUMMARY | 2021-10-31 07:02 | CCD ---
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 Name Role Phone Maya Spears Unavailable PROBLEMS Type Condition ICD9-CM Code [id number] Code Onset Dates Condition S tatus W/U Status Risk SNOMED Code Notes Problem Bipolar depression F31.9 Active confirmed 7 12391117 Problem Scoliosis of lumbar region d ue to degenerative disease of spine in adult M41.56 Active confirmed 426838478 Problem Recurrent major depressive disorder, in partial remission F33.41 Active confirmed 89658065 Problem Vitamin D deficiency disease E55.9 Active confirme d 54287056 Problem Morbid obesity due to excess calories E66.01 Ac tive confirmed 016819046 Problem Anxiety F41.9 Active confirmed 59772846 Problem Morbid obesity E66.01 Active confirmed 46612 6002 Problem Mixed hyperlipidemia E78.2 Active confirmed 310006346 Problem Psychophysiological insomnia F51.04 Active confirme d 992680864 Problem Lumbar spondylosis M47.816 Active confirmed 885074551 Problem Cigarette nicotine dependence without complication F17.210 Active confirmed 38287581 Problem Lumbago with sciatica, left side M54.42 Active confirmed 071876288 Problem Lumbago with sciatica, right side M54.41 Active confirmed 491853323747782 Problem Other idiopathic scoliosis, lumbar region M41.26 Active confirmed 733649386 Problem Other chronic pain G89.29 Active confirmed 8 [id number] ALLERGIES No Known Allergies ENCOUNTERS from 1975 to 2021-09-28 Encounter Location Date Provider Diagnosis [address] [facility] [phone] [place] [address] Sep, Maya Spears IMMUNIZATIONS Vaccine Route Administration [...] Education Language: Question Answer Notes Languages spoken: Kyrgyz Drug and Alcohol Question Answer Notes Total [...] Information RESULTS No Results REASON FOR VISIT Wait in vehicle/ sick MEDICAL (GENERAL) HISTORY Type Description Date Medical [...] Information ASSESSMENTS No Information PLAN OF TREATMENT Medication Medication Name Sig Start Date Stop Date Vitamin D 50 MCG (1999) 1 tablet Orally Once a day for 30 day(s) March, Pregabalin 100 MG 1 capsule Orally three times a day Celecoxib 200 MG 1 capsule with food Orally Twice a day Latuda 120 MG 1 tablet with food Orally Once a day Next Appt Details Provider Name:Maya Spears, 2021-09 10:00:00 AM, [address], , [place], [address], Provider Name:Kimberlee Fisher, 2021-10-16 10:30:00 AM, [address], , [place], [address], Insurance Providers Payer Name Payer Address Payer Phone Insured Name Patient Relati onship to Insured Coverage Start Date Coverage End Date [facility] [address] [facility] [phone] HESHAM JOHN self
--- OUTSIDE RECORDS SUMMARY | 2021-10-31 07:02 | CCD | Summary of Care ---
Author Author [facility] Organization [facility] Address Unknown Phone Unavailable Care Team Providers Care Quality Management Nurse Name Role Phone Kimberlee Fisher PCP Reason for Referral * Home Health Care (Routine) - Open Diagnoses / Procedures Referred By Contact Referred To [facility]a [facility] Specialty Diagnoses Postoperative infection, unspecified type, initial encounter Laura Velásquez PA [address] [facility] [address] [place] [address] Email: [email or web address] Services Referral ID Status Reason Start Date Expiration Visits Vi sits Date Requested Authorized [id number] Open Specialty Services 10/11/2021 1 1 Required Reason for Visit * Reason Comments Back Pain Abnormal Radiology Exam MRI * Auth/Cert Diagnoses / Procedures Referred By Contact Referred To Conta ct Specialty Diagnoses Failed back syndrome of lumbar spine Referral ID Status Reason Start Date Expiration Visits Vi sits Date Requested Authorized [id number] 1 1 Encounter Details Care Team Description Date Type Department David Noble MD [address] [place] [address] [email or web address] Colt Mchugh MD [address] [place] [address] [email or web address] Postoperative infection, unspecified typ e, initial encounter (Primary Dx); Acute low back pain with bilateral sciatica, unspecified back pain laterality; Chills; Diaphoresis; Obesity, unspecified classification, unspecified obesity type, unspecified whether serious comorbidity present; COVID-19 ruled out; Former smoker; Status post spinal surgery 10/05/[address] ORTHOPEDICS INP ATIENT - Encounter 10/11/[address] [place] [address] Allergies No known active allergiesdocumented as of this encounter (statuses as of 10/11/2021) Medications End Date Status Medication Sig Dispensed Refills Start Date Active Lurasidone HCl 80 MG Oral Take 80 mg by 0 Tablet (Latuda) mouth daily Active Celecoxib 200 MG Oral Take 200 mg 0 Capsule (CeleBREX) by mouth Two Times Daily Active Pregabalin 100 MG Oral Take 100 mg 0 Capsule (Lyrica) by mouth Two Times Daily Active DULoxetine HCl 60 MG Oral Take 60 mg by 0 04/24 Capsule Delayed Release mouth daily 0 Particles (CYMBALTA) Active Ergocalciferol 1.25 MG Vitamin D2 0 (26065 UT) Oral Capsule 1,250 mcg (ERGOCALCIFEROL) (50,000 unit) capsule TAKE 1 CAPSULE BY MOUTH ONCE A MONTH Active Heparin Sodium Lock Flush 5 mls IV 450 mL 5 100 UNIT/ML Intravenous after dose 1 Solution and PRN Active Normal Saline Flush 0.9 % 10 ml IV 450 mL 5 Intravenous Solution before and 1 after dose and PRN 11/20/2021 Active dextrose 5 % SOLN 500 mL Inject 12 g 500 mL 0 1 with oxacillin 1 g SOLR into the vein 1 12 g every 24 (twenty-four) hours 10/21/2021 Active Docusate Sodium 100 MG Take 1 20 capsule 0 Oral Capsule (COLACE) capsule by 1 mouth Two Times Daily for 10 days 10/14/2021 Active Polyethylene Glycol 3350 Take 1 packet 3 each 0 17 GM Oral Packet by mouth 1 (MIRALAX) daily as needed (constipation ) for up to 3 daysPlease substitute bottle for packets, if packets are unavailable. 10/21/2021 Active Potassium Chloride Sara Take 1 tablet 20 tablet 0 ER 20 MEQ Oral Tablet by mouth Two 1 Extended Release (K-DUR) Times Daily for 10 days 11/20/2021 Active rifAMPin 300 MG Oral Take 1 80 capsule 0 10/11 Capsule (RIFADIN) capsule by 1 mouth every 12 (twelve) hours Active Senna 8.6 MG Oral Tablet Take 2 120 tablet 0 1 tablets by 1 mouth nightly 10/18/2021 Active oxyCODONE-Acetaminophen Take 1-2 42 tablet 0 5-325 MG Oral Tablet tablets by 1 (PERCOCET) mouth every 4 (four) hours as needed for Pain for up to 7 days, Max Daily Dose: 6 tablets documented as of this encounter (statuses as of 10/11/2021) Active Problems Problem Noted Date Anxiety 10/11/2021 Bipolar disorder 10/11/2021 Mixed hyperlipidemia 10/11/2021 Morbid obesity 10/11/2021 Recurrent major depression in remission 10/11/2021 Surgical site infection 10/11/2021 Failed back syndrome of lumbar spine 10/05/2021 Scoliosis of lumbar region due to degenerative diseas e of spine in adult 04/12/2020 Lumbar radiculopathy 04/12/2020 Cholecystitis, chronic 08/12/2014 Acute cholecystitis 05/31/2014 Adrenal incidentaloma 05/31/2014 documented as of this encounter (statuses as of 10/11/2021) Immunizations Name Administration Dates Next Due documented as of this encounter Social History Date Tobacco Use Types Packs/Day Years Used Former Smoker Smokeless Tobacco: Never Used Comments Alcohol Use Standard Drinks/Week rarely/holidays Yes 0 (1 standard drink = 0.6 o z pure alcohol) Alcohol Habits Answer Date Recorded How often do you have a drink containing alcohol? No t asked How many drinks containing alcohol do you have on No t asked a typical day when you are drinking? How often do you have six or more drinks on one Not asked occasion? Comment: rarely/holidays 07/26/2016 Sex Assigned at Date Recorded Not on file Date Recorded COVID-19 Exposure Response 10/05/2021 12:18 AM EST In the last month, have you been in contact with No / Unsure someone who was confirmed or suspected to have Coronavirus / COVID-19? documented as of this encounter Last Filed Vital Signs Reading Time Taken Comments Vital Sign 107/70 10/11/2021 11:11 AM EST Blood Pressure 78 10/11/2021 11:11 AM EST Pulse 36.7 C (98.1 F) 10/11/2021 11:11 AM EST Temperature 18 10/11/2021 11:11 AM EST Respiratory Rate 95% 10/11/2021 11:11 AM EST Oxygen Saturation - - Inhaled Oxygen Concentration 122.5 kg (270 lb) 10/05/2021 6:54 PM EST Weight 165.1 cm (5' 5") 10/05/2021 6:54 PM EST Height 44.93 10/05/2021 6:54 PM EST Body Mass Index documented in this encounter Progress Notes * ROSALVA Gregory - 10/11/2021 4:31 PM EST ORTHOPEDIC SPINE NOTE: Patient's hemovac removed. Tip intact. Incision to posterior lumbar spine with out erythema, induration, or fluctuance. Minimal serosanguineous drainage noted from drain insertion site. Sutures intact. Hypafix and gauze dressing applied. Patient tolerated well. * Marilou Martinez RN - 10/11/2021 3:52 PM EST Plan for discharge home today. Pradip STANFORD with [facility] has met with pt and p t's mother Kellie at bedside for IV abx teach. Pt will stay at [address] This financial underwriter spoke with [facility], they ar e aware of discharge address and pt has SOC for tomorrow. * Gina Mead RN - 10/11/2021 3:36 PM EST PICC Line Insertion Procedure Note Procedure: Insertion of #5 FR/18G/18G PICC Indications: Home IV therapy Procedure Details Informed consent was obtained for the procedure. Risks of bleeding at site, inf ection, malposition, phlebitis, DVT or SVT were discussed. Maximum sterile technique was used including antiseptics, cap, gloves, gown, martinez d hygiene, mask and sheet. #5 FR/18G/18G PICC inserted to the R Basilic vein per hospital protocol. Bloo d return: yes Findings: Catheter inserted to 42 cm, with 0 cm exposed. Total catheter length is 42 cm. Catheter was flushed with 20 cc NS. Patient did tolerate procedure well. Recommendations: PICC Brochure given to patient with teaching instruction. PICC Line Insertion Status: PICC successfully inserted using ultrasound guidance . PICC tip location confirmed utilizing the Vascular Positioning System (VPS) pe r policy CM C-34 - Central Lines and procedure PROC CM C-34A - Central Line Inse rtion and Removal. Steady Blue Bullseye symbol obtained confirming ideal PICC ti p placement in the lower 1/3 of the SVC/CAJ. CXR is not necessary to confirm onofre cement. Appropriate order set placed in EPIC. Bedside nurse aware PICC is prakash red for use per orders with all new IV administration sets. PICC inserted by Ruddy Nash RN. E ROSALVA Honeycutt - 10/11/2021 8:01 AM EST ORTHOPEDIC SPINE PROGRESS NOTE: Subjective: Patient seen and examined this morning with her resting in bed. No acute events overnight. Pain is well controlled at this time. Patient is alondra ating current diet. Denies nausea, vomiting, chest pain, shortness of breath or headaches. Denied fever or chills. No neurological complaints. Transthoracic ec ho was completed yesterday. Objective: Temp: [36.4 C (97.5 F)-36.9 C (98.4 F)] 36.7 C (98.1 F) Pulse: [78-98] 83 Resp: [16-18] 18 BP: (113-138)/(52-85) 113/67 SpO2: [91 %-94 %] 93 % O2 Therapy: Room air Intake/Output Summary (Last 24 hours) at 10/11/2021 0801 Last data filed at 10/11/2021 0600 Gross per 24 hour Intake 1540 ml Output 300 ml Net 1240 ml Hemovac Output Last Shift= 20 mL Last Bowel Movement= Prior to admission. Exam: General: Awake, alert, oriented. No acute distress. Lungs: Non-labored respirations. Abdomen: Soft, non-tender, non-distended Back: dressing intact, drain in place and functional. Spine Neuro Exam RLE: 2+ SILT L2-S1 5/5 EHL / FHL / TA / G / Hams / Quads / Hip Flex / Hip Ext LLE: 2+ SILT L2-S1 5/5 EHL / FHL / TA / G / Hams / Quads / Hip Flex / Hip Ext All four extremities warm and well perfused; calf's soft bilaterally Recent Labs Lab 10/07/21 0615 10/08/21 0640 10/10/21 0805 NA 134* 135* 140 K 3.5 3.6 3.1* CL 100 99 99 BICARBONATE 25 24 25 GLUCOSE 98 92 88 BUN 7 4* 4* CREATININE 0.45* 0.38* 0.41* BCR 15 11 9 GFRAA >90 >90 >90 GFRNONAA >90 >90 >90 Recent Labs Lab 10/08/21 0640 10/10/21 0805 10/11/21 0430 HCT 26.7* 25.2* 24.7* HGB 8.4* 8.0* 8.0* MCH 24.5* 24.4* 24.9* MCHC 31.2* 31.9* 32.4 MCV 78.3* 76.3* 76.8* PLT 416* 413* 361 RDW 21.0* 21.4* 21.2* WBC 9.7 8.4 7.2 Lab Results Component Value Date INR 1.25 10/05/2021 INR 1.19 06/01/2014 INR 1.09 05/31/2014 Results for HESHAM JOHN JO ( ) as of 10/11/2021 08:44 Ref. Range 10/05/2021 21:26 10/10/2021 08:05 Sed Rate - ESR Latest Ref Range: <20 mm/hr 103 (H) 92 (H) Results for JOHNHESHAMMARLEY ( ) as of 10/11/2021 08:44 Ref. Range 10/10/2021 08:05 C Reactive Protein Latest Ref Range: <8.0 mg/L 129.0 (H) Cultures: Wound Culture (10/07): positive for Staphylococcus aureus Blood cultures (10/08): no growth x 1 day Scheduled Medications acetaminophen (TYLENOL) tablet 650 mg Oral 4 times per day docusate sodium 100 mg Oral BID Or docusate 100 mg Oral BID DULoxetine 60 mg Oral Daily enoxaparin 40 mg Subcutaneous Daily guaifenesin 600 mg Oral BID lurasidone HCl 80 mg Oral Daily oxacillin 2 g Intravenous Q4H pregabalin 100 mg Oral BID rifAMPin 300 mg Oral 2 times per day senna 10 mL Oral Nightly Or senna 2 tablet Oral Nightly vitamin D 50,000 Units Oral Q7 Days Continuous Infusions PRN Medications bisacodyl, ondansetron OR ondansetron, oxyCODONE OR oxyCODONE, perflutre n lipid microspheres, polyethylene glycol Assessment: Pt is a 46 y.o. female Hesham Aldanaon is a 46 y.o. female s/p ALIFL1-L5 and PSIF L1-L5on 05/31/[address] Mchugh ; subsequent revision on 07/11/2021 w ith extension to sacrum; now POD # 4 S/P I&D with OR cultures growing MSSA. Plan: - Pain control: continue current regimen. - ID: afebrile, WBC 7.2, Wound Culture (10/07): positive for Staphylococcus briana us; Blood cultures (10/08) with no growth x 1 day; ESR 92 (10/10) down from 103 (10/05); CRP 129 (10/10) down from 273 (10/05). Currently on oxacillin 2G IV Q 4 hours and rifampin 300 mg PO BID per Infectious disease team. Transthoracic echo (10/10) with no structural abnormality. - Depression; anxiety: Home dose of Cymbalta 60 mg; Latuda 80 mg. Rifampin may d ecrease concentration of Latuda therefore ID team recommending patient to follow up with provider who prescribed Latuda - PT/OT- OOB, mobilize as tolerated. - DVT prophylaxis- TEDs/SCDs and early mobilization. Lovenox 40 mg SQ daily. - Tolerating current diet, continue with bowel regimen. - Continue with hemovac to self suction, record output every shift. - Expected acute post-op anemia/blood loss with 8.0/24.7, will monitor. - Morning BMP pending - Dispo planning: ID final recommendations placed; awaiting placement of PICC line. Patient to follow up with provider who prescribed Latuda. - Case was discussed with spine fellow and chief. * Gardenia Brewster RN - 10/10/2021 2:41 PM EST CM met with patient to update her on discharge planning. [facility] following for infusion and [facility] with have a SN come in the next day after discharge to help therapeutic case manager PICC line. Pt states that she has her mother who can assist and will be up to bring her home at discharge if the teaching can be done with both of them. Still awaiting final culture results and ID final recommen dations. CM to follow. * ROSALVA Brody - 10/10/2021 6:00 AM EST ORTHOPEDIC SPINE PROGRESS NOTE: Subjective: Patient seen and examined this morning. No acute events overnight. Pain is well controlled at this time. Patient is tolerating current diet. Den ies nausea, vomiting, chest pain, shortness of breath or headaches. Denied fever or chills. No neurological complaints. Objective: Temp: [36.6 C (97.9 F)-37.3 C (99.1 F)] 36.8 C (98.2 F) Pulse: [84-102] 87 Resp: [16-18] 16 BP: (108-172)/(57-86) 108/57 SpO2: [91 %-96 %] 96 % O2 Therapy: Room air Intake/Output Summary (Last 24 hours) at 10/10/2021 0722 Last data filed at 10/10/2021 0600 Gross per 24 hour Intake 2627.24 ml Output 930 ml Net 1697.24 ml Hemovac Output Last Shift= 40 mL Last Bowel Movement= Prior to admission. Exam: General: Awake, alert, oriented. No acute distress. Lungs: Non-labored respirations. Abdomen: Soft, non-tender, non-distended Back: dressing intact, drain in place and functional. Spine Neuro Exam RLE: 2+ SILT L2-S1 5/5 EHL / FHL / TA / G / Hams / Quads / Hip Flex / Hip Ext LLE: 2+ SILT L2-S1 03/28 EHL / FHL / TA / G / Hams / Quads / Hip Flex / Hip Ext All four extremities warm and well perfused; calf's soft bilaterally Recent Labs Lab 10/05/21212510/07/2115 10/08/21 0640 NA 138 134* 135* K 3.9 3.5 3.6 CL 97* 100 99 BICARBONATE 27 25 24 GLUCOSE 87 98 92 BUN 10 7 4* CREATININE 0.69 0.45* 0.38* BCR 14 15 11 GFRAA >90 >90 >90 GFRNONAA >90 >90 >90 Recent Labs Lab 10/07/2161410/07/21202510/08/21 0640 HCT 28.4* 24.6* 26.7* HGB 9.0* 7.9* 8.4* MCH 24.5* 25.0* 24.5* MCHC 31.7* 32.0 31.2* MCV 77.4* 78.0* 78.3* PLT 435* 412* 416* RDW 21.5* 21.2* 21.0* WBC 11.1* 11.4* 9.7 Lab Results Component Value Date INR 1.25 10/05/2021 INR 1.19 06/01/2014 INR 1.09 05/31/2014 Results for HESHAM JOHN ( ) as of 10/10/2021 07:26 Ref. Range 10/05/2021 21:26 Sed Rate - ESR Latest Ref Range: <20 mm/hr 103 (H) Results for HESHAM JOHN ( ) as of 10/10/2021 07:26 Ref. Range 10/05/2021 21:26 C Reactive Protein Latest Ref Range: <8.0 mg/L 273.0 (H) Cultures: Wound Culture (10/07): positive for Staphylococcus aureus Blood cultures (10/08): Pending Scheduled Medications acetaminophen (TYLENOL) tablet 650 mg Oral 4 times per day docusate sodium 100 mg Oral BID Or docusate 100 mg Oral BID DULoxetine 60 mg Oral Daily enoxaparin 40 mg Subcutaneous Daily guaifenesin 600 mg Oral BID lurasidone HCl 80 mg Oral Daily oxacillin 2 g Intravenous Q4H pregabalin 100 mg Oral BID rifAMPin 300 mg Oral 2 times per day senna 10 mL Oral Nightly Or senna 2 tablet Oral Nightly vitamin D 50,000 Units Oral Q7 Days Continuous Infusions PRN Medications bisacodyl, fentaNYL, ondansetron OR ondansetron, oxyCODONE OR oxyCODONE, polyethylene glycol Assessment: Pt is a 46 y.o. female Hesham John is a 46 y.o. female s/p ALIFL1-L5 and PSIF L1-L5on 05/31/[address] Mchugh with subsequent revision on 07/11/2021 with extension to sacrum; now POD # 3 S/P I&D. Blood and OR cultures growing MSSA. Plan: - Pain control: continue current regimen. - ID: afebrile, WBC 9.7, Wound Culture (10/07): positive for Staphylococcus briana us; Blood cultures (10/08): Pending; Currently on oxacillin 2G IV Q 4 hours and rifampin 300 mg PO BID per Infectious disease team. Will repeat inflammatory mar kers. Will obtain transthoracic echo per ID team. - PT/OT- OOB, mobilize as tolerated. - DVT prophylaxis- TEDs/SCDs and early mobilization. Lovenox 40 mg SQ daily. - Tolerating current diet, continue with bowel regimen. - Continue with hemovac to self suction, record output every shift. - Morning labs pending - Dispo planning: discharged to home once PICC line placed and home services est ablished by CM. - Case was discussed with spine fellow and chief. Associated attestation - Colt Mchugh MD - 10/10/2021 8:59 AM EST I saw and evaluated the patient. I reviewed all of the imaging studies with the resident/fellow/PA. I agree with the resident/fellow/PA and plan as discussed. Patient remains neurologically stable. No new issue . Will continue ABX per ID service. Will follow cultures to facilitate PICC. Will work on discharge plan mar Gómez MD - 10/09/2021 5:24 PM EST Images from the original note were not included. [facility] INPATIENT [address] [place] [id number] Hesham John [id number] 1975 46 y.o. year old female 10/05/2021 INFECTIOUS DISEASE PROGRESS NOTE PHYSICIAN REQUESTING ID CONSULT: Colt Mchugh MD LOS: 4 days PROBLEM LIST; Principal Problem: Failed back syndrome of lumbar spine REASON FOR INITIAL ID CONSULT: Lumbar spine fluid collection status post surgery SUBJECTIVE INTERIM Hx: The patient remained hemodynamically stable. She is status post was hout. Wound and blood cultures growing MSSA. Denies any worsening pain, fevers , chills, nausea, vomiting, diarrhea, rashes OBJECTIVE VITAL SIGNS: Vitals: 10/09/21 0340 10/09/21 0759 10/09/21 1136 10/09/21 1500 BP: 119/60 111/62 114/74 122/74 BP Location: Left arm Left arm Left arm Left arm Patient Position: Lying Lying Lying Pulse: 93 94 93 84 Resp: (!) 20 18 18 18 Temp: 36.9 C (98.4 F) 36.6 C (97.9 F) 36.7 C (98.1 F) 36 .8 C (98.2 F) TempSrc: Oral Oral Oral Oral SpO2: 91% 93% 94% 94% Weight: Height: Temp Readings from Last 3 Encounters: 10/09/21 36.8 C (98.2 F) (Oral) 10/03/21 36.2 C (97.1 F) 07/27/21 36.1 C (96.9 F) (Temporal) PHYSICAL EXAM GEN: pleasant obese female, no acute distress, resting in bed HEENT: no scleral icterus, no rhinorrhea, no oral lesions LUNGS: CTA bilaterally without wheezes, rales or rhonchi. Good air movement thr oughout CVS: s1s2, RRR, no audible murmur or rub noted on exam ABD: surgical site dressed, no tendereness SKIN: no rash, no jaundice EXT: no lower extremity swelling, no splinter hemorrhages NEURO: Alert, oriented x 3 LINES & CATHETERS: All lines and catheters were examined and no signs of infection, such as erythem a, tenderness, discharge, were observed. Peripheral IV 10/08/21 Anterior;Left;Proximal Forearm (Active) Site Assessment Clean;Dry;Intact 10/09/21899 Line Status Flushed;Infusing 10/09/21899 Line Care Connections checked and tightened 10/09/21899 Dressing Type Tegaderm 10/09/21 09 Dressing Status Clean;Dry;Intact 10/09/21 0900 Number of days: 1 Closed/Suction Drain Left Back Accordion 10 Fr. (Active) Site Description Unable to view 10/09/21 1632 Dressing Status Clean;Dry;Intact 10/09/21 1632 Drainage Appearance Serosanguineous 10/09/21 163 Status To bulb suction 10/09/21 1632 Output (mL) 25 mL 10/09/21 1500 Number of days: 2 Open Drain Right Abdomen 8.5 Fr. (Active) Number of days: 2687 DATA REVIEW Pertinent lab/imaging data was reviewed by me today as follows: LAB DATA: Recent Labs Lab 10/07/21 0615 10/07/21202510/08/21 0640 HGB 9.0* 7.9* 8.4* HCT 28.4* 24.6* 26.7* WBC 11.1* 11.4* 9.7 PLT 435* 412* 416* Lab Results Component Value Date NEUTOPHILPCT 73 10/05/2021 LYMPHOPCT 14 10/05/2021 MONOPCT 8 10/05/2021 EOSPCT 3 10/05/2021 Lab Results Component Value Date NA 135 (L) 10/08/2021 K 3.6 10/08/2021 CL 99 10/08/2021 BICARBONATE 24 10/08/2021 GLUCOSE 92 10/08/2021 BUN 4 (L) 10/08/2021 CREATININE 0.38 (L) 10/08/2021 Lab Results Component Value Date PROT 7.3 10/05/2021 ALBUMIN 3.1 (L) 10/05/2021 AST 10 10/05/2021 ALT 10 10/05/2021 TBILI 0.2 10/05/2021 ALKPHOS 92 10/05/2021 Lab Results Component Value Date INR 1.25 10/05/2021 CURRENT MEDICATIONS: acetaminophen (TYLENOL) tablet 650 mg Oral 4 times per day docusate sodium 100 mg Oral BID Or docusate 100 mg Oral BID DULoxetine 60 mg Oral Daily enoxaparin 40 mg Subcutaneous Daily guaifenesin 600 mg Oral BID lurasidone HCl 80 mg Oral Daily oxacillin 2 g Intravenous Q4H pregabalin 100 mg Oral BID rifAMPin 300 mg Oral 2 times per day senna 10 mL Oral Nightly Or senna 2 tablet Oral Nightly vitamin D 50,000 Units Oral Q7 Days bisacodyl, fentaNYL, ondansetron OR ondansetron, oxyCODONE OR oxyCODONE, polyethylene glycol sodium chloride 100 mL/hr (10/09/21 0501) Antibiotic Orders rifAMPin (RIFADIN) capsule 300 mg starting at 10/09 2100 oxacillin in dextrose 5 % 50 mL infusion 2 g at 100 mL/hr starting at 10/09 160 0 Diet Adult; Regular starting at 10/07 1353 MICROBIOLOGY: Swab 0 Result Notes Component Value Special Request PARASPINAL FLUID 1 Gram Stain 3+ WBC'S Seen. Abnormal Gram Stain 1+ Gram positive cocci in pairs Abnormal Culture/Results 2+ Staphylococcus aureus. Oxacillin susceptible using a non grow th dependent method. Abnormal Culture/Results (NOTE) Called to and read back by Nicole Cazares RN on 7A 10/08/21,11:17am by PLK Resulting Agency [facility] Clin Pathology Susceptibility Staphylococcus aureus SELECT RATNA RESULTS REPORTED. Cefazolin Sensitive Clindamycin 0.25 Sensitive Erythromycin <=0.25 Sensitive Oxacillin <=0.25 Sensitive Trimethoprim + Sulfamethoxazole <=0.5/9.5 Sensitive Vancomycin 1 Sensitive Wound culture Order: [id number] Collected 10/07/2021 11:30 Status: Final result Visible to patient: Yes (not seen) Specimen Information: Swab 0 Result Notes Component Value Special Request PARASPINAL FLUID 4 Gram Stain 2+ WBC'S Seen. Abnormal Gram Stain 2+ Gram positive cocci in pairs, chains and clusters. Abnormal Culture/Results 2+ Staphylococcus aureus. Oxacillin susceptible using a non grow th dependent method. Abnormal Culture/Results Refer to culture [id number] received 10/07/21 13:01 for susceptibility results. Peripheral 0 Result Notes Component Value Special Request L HAND Culture/Results Abnormal Smear: Gram positive cocci in clusters suggestive of Staphylococcus. in aerobic and anaerobic broths. Culture/Results Called to and read back by 7A HIEN MISHRA AT 0149 ON 10/07/21 BY [id number] Culture/Results Staphylococcus aureus. in aerobic and anaerobic broths. Abnormal Resulting Agency [facility] Clin Pathology Susceptibility Staphylococcus aureus SELECT RATNA RESULTS REPORTED. Cefazolin Sensitive Clindamycin 0.25 Sensitive Erythromycin <=0.25 Sensitive Oxacillin <=0.25 Sensitive Trimethoprim + Sulfamethoxazole <=0.5/9.5 Sensitive Vancomycin 1 Sensitive ECHO: N/A ASSESSMENT & PLAN WITH RECOMMENDATIONS Hesham John is a 46 y.o. female with who morbid obesity admitted for lumbar spine fluid collection post anterior-posterior fusion surgery in June. She st atus post washout by surgery with cultures growing MSSA. She also has MSSA bact eremia initially on blood cultures done on 10/06/2020 1 repeat cultures from [facility] We recommend switching to IV oxacillin 2 g q4 or 12 g q24 along with rifampin 30 0 mg twice daily from first negative blood culture for 6 weeks. Please note addison t rifampin decreases the Latuda concentrations so the patient needs to follow-up with the provider who is prescribing that. The patient needs a transthoracic echocardiogram. On discharge she will need weekly CBC with differential, CMP, ESR, CRP. Repeat imaging at the end of therapy. We will continue to follow Thank you for allowing us to participate in this pat ient's care. Please call [phone] with questions or changes in condition. Patient seen. Plan of care discussed and co-formulated with MD Saroj Coughlin M.D Fellow PGY - 4 Infectious Disease & Critical Care Medicine ATTENDING ADDENDUM: I reviewed the chart and available clinical laboratory, radiologic, and microbio logic test results. I reviewed the hospital course to date and applicable progre ss notes, consults, and other relevant documentation. I met with the patient and completed a history and physical examination. I reviewed the case with the Pamela carter. I agree with the diagnostic and treatment plan as detailed in the Fellow's n ote. I prefer oxacillin over cefazolin here given the involvement of the abscess and high innoculum of bacteria. She will be followed in our clinic and require a lo ng oral suppressive regimen as her risk for relapse is very high. Roberto Gómez MD INFECTIOUS DISEASE STAFF [phone] * Gardenia Brewster RN - 10/09/2021 2:37 PM EST Previous CM had referred pt to [facility] for IV abx, they are set and awaitin g final ID recommendations. Pt's insurance requires a [facility] for SN. Pt already referred to [facility]. CM left for admitting at [facility] to return call for SOC date. CM to follow. * Netta Webb III, MD - 10/09/2021 7:57 AM EST ORTHOPEDIC SPINE SURGERY PROGRESS NOTE Interval Present History: No issues overnight. Patient states her back pain is c urrently 05/03. Denies lower extremity weakness/numbness/tingling. No issues with bowel/bladder incontinence. States she has been OOB working with PT. Vital Signs: Temp: [36.3 C (97.3 F)-37 C (98.6 F)] 36.9 C (98.4 F) Pulse: [91-105] 93 Resp: [18-20] 20 BP: (94-128)/(53-73) 119/60 SpO2: [90 %-100 %] 91 % O2 Therapy: Room air O2 Flow Rate (L/min): [2 L/min] 2 L/min PHYSICAL EXAM General: Patient is awake and alert. No acute distress. Appears comfortable in b ed. Lungs: Unlabored respirations. Extremities: Motor Exam: IP Q H Gas TA EHL FHL R 5 5 5 5 5 4 5 L 5 5 5 5 5 5 5 RLE: Sensation intact to light touch in the L2-S1 dermatomal distributions. No sustained ankle clonus LLE: Sensation intact to light touch in the L2-S1 dermatomal distributions. No sustained ankle clonus Extremities warm and well perfused. Data Reviewed CBC: Lab Results Component Value Date WBC 9.7 10/08/2021 RBC 3.41 (L) 10/08/2021 HGB 8.4 (L) 10/08/2021 HCT 26.7 (L) 10/08/2021 PLT 416 (H) 10/08/2021 BMP: Lab Results Component Value Date NA 135 (L) 10/08/2021 K 3.6 10/08/2021 CL 99 10/08/2021 BICARBONATE 24 10/08/2021 GLUCOSE 92 10/08/2021 BUN 4 (L) 10/08/2021 CREATININE 0.38 (L) 10/08/2021 BCR 11 10/08/2021 GFRAA >90 10/08/2021 GFRNONAA >90 10/08/2021 Coagulation: Lab Results Component Value Date INR 1.25 10/05/2021 HVAC: 110/NR/130 mL Assessment: Hesham John is a 46 y.o. female s/p ALIF L1-L5 and PSIF L1-L5 on 05/31/[address] Mchugh with subsequent revision on 07/11/2021 with extension to sacrum. Patient has recurrence of lower back pain, subjective fevers and chills, and rec ent MRI showing fluid collection over the posterior lumbar spine beneath previou s surgical incision site, in contact with the underlying's spinal instrumentatio n. Taken to OR on 10/07 for I&D. Blood and OR cultures growing MSSA. Plan: - Reg diet - Drain to self suction; will pull once output has significantly decreased - Holding anticoagulation and DVT prophylaxis at this time; patient ambulating O OB - No head of bed restrictions. Patient can be weightbearing as tolerated to jimmy ateral lower extremities with assistance as needed, OOB ad francisco., no need for for mal immobilization - Pain controlled IV and oral medications - PT eval - ID consulted: vanc/cefepime at this time - Dispo: discharge home once final ID recs and PICC line have been placed Associated attestation - Colt Mchugh MD - 10/09/2021 11:14 AM EST I saw and evaluated the patient. I reviewed all of the imaging studies with the resident/fellow/PA. I agree with the resident/fellow/PA and plan as discussed. I saw the patient on rounds. She was in good spirits. She remains neurological ly stable. We discussed her infection. At this time she appears to have MSSA. We are waiting for her to have negative blood cultures for placement of a PICC line. We discussed the potential need for long-term antibiotics and careful fol low-up. Overall she is feeling better after her drainage procedure * Renea Spencer RN - 10/08/2021 7:12 PM EST Nurse had this pt from [phone]. Nurse agrees with previous nurse's assessment. * Lily Cazares RN - 10/08/2021 11:18 AM EST This RN notified by the lab that pt spinal fluid cultures are positive for Staph Aures. Team made aware. * Marilou Martinez RN - 10/08/2021 11:06 AM EST Case Management Screen & Assessment Patient Name: Hesham John Gender: female Date of : 1975 Admission Dx: Failed back syndrome of lumbar spine [M96.1] Age: 46 y.o. Admission: 10/05/2021 8:23 PM Attending Provider: Colt Mchugh MD High Risk Criteria - Prior to Admission/Upon Arrival [employer]-Type of Residence: Private Residence [employer]- Home Care Services: No Limited Home Supports/Lives Alone?: Yes Multi trauma/Critical care/Step down admit?: No Head/Spinal cord injury?: No Self Pay: No Multiple ED visits?: No Related/Unplanned readmission within 30 days?: No Complex/New medical issues: spinal fluid collection, s/p thoracic lumber spine d ebridement Relevant comorbidities: 07/11/2021 lumber spinal fusion revision Func/Cognitive/Behavorial deficit(s): needs assistance with IADLs Screening Outcome Further Case Management Needs?: No Case Management Needs Chart Review PCP Verified?: Patient has PCP Prior to Admission: Functional/Environmental Assessment Bathing: Independent Dressing: Independent Toileting: Independent Medication administration: Independent Transfers: Independent Ambulation: Independent Meal preparation: Needs assistance Number of stairs into home: 2 Number of stairs to bathroom: 0 Number of stairs to bedroom: 0 Durable Medical Equipment (DME): Walker Discharge Planning Living Arrangements: Alone Support Systems: Parent Type of Residence: Private residence Is this patient appropriate for transfer to [facility]?: No Patient/family informed of need for discharge planning?: Yes Patient expects to be discharged to:: home Patient/Agent informed of choice and given written list?: Patient/agent declined list Does the patient need discharge transport arranged?: No Note: This financial underwriter met with pt at bedside, CM role explained. Pt lives at home al one and pt's mother assists pt with meals and housekeeping [employer]. Pt admitted with spinal fluid collection and is s/p debridement. Anticipate no needs vs home ca re. CM will continue to follow. Marilou Martinez * Netta Webb III, MD - 10/08/2021 6:25 AM EST ORTHOPEDIC SPINE SURGERY PROGRESS NOTE Interval Present History: Doing well this morning. Back pain is 7 out of 10. Den ies new lower extremity symptoms. Has been able to urinate without issue. Yet to be OOB. Denies fevers/chills/nausea/emesis. Vital Signs: Temp: [36.5 C (97.7 F)-37 C (98.6 F)] 36.9 C (98.4 F) Pulse: [89-114] 95 Resp: [15-22] 16 BP: (91-132)/(46-79) 121/62 SpO2: [85 %-99 %] 96 % O2 Therapy: Oxygen O2 Flow Rate (L/min): [2 L/min-5 L/min] 2 L/min PHYSICAL EXAM General: Patient is awake and alert. No acute distress. Appears comfortable in b ed. Lungs: Unlabored respirations. Extremities: Motor Exam: IP Q H Gas TA EHL FHL R 5 5 5 5 5 4 5 L 5 5 5 5 5 5 5 RLE: Sensation intact to light touch in the L2-S1 dermatomal distributions. No sustained ankle clonus LLE: Sensation intact to light touch in the L2-S1 dermatomal distributions. No sustained ankle clonus Extremities warm and well perfused. Data Reviewed CBC: Lab Results Component Value Date WBC 11.4 (H) 10/07/2021 RBC 3.15 (L) 10/07/2021 HGB 7.9 (L) 10/07/2021 HCT 24.6 (L) 10/07/2021 PLT 412 (H) 10/07/2021 BMP: Lab Results Component Value Date NA 134 (L) 10/07/2021 K 3.5 10/07/2021 CL 100 10/07/2021 BICARBONATE 25 10/07/2021 GLUCOSE 98 10/07/2021 BUN 7 10/07/2021 CREATININE 0.45 (L) 10/07/2021 BCR 15 10/07/2021 GFRAA >90 10/07/2021 GFRNONAA >90 10/07/2021 Coagulation: Lab Results Component Value Date INR 1.25 10/05/2021 Assessment: Hesham John is a 46 y.o. female s/p ALIF L1-L5 and PSIF L1-L5 on 05/31/[address] Mchugh with subsequent revision on 07/11/2021 with extension to sacrum. Patient has recurrence of lower back pain, subjective fevers and chills, and rec ent MRI showing fluid collection over the posterior lumbar spine beneath previou s surgical incision site, in contact with the underlying's spinal instrumentatio n. Initially planned for IR aspiration but was told by weekend on-call doctor at this would have to wait until Friday due to credentialing issues. Taken to OR on 10/07 for I&D. Blood and OR cultures growing CPS. Plan: - Reg diet - Drain to self suction - Holding anticoagulation and DVT prophylaxis at this time - No head of bed restrictions. Patient can be weightbearing as tolerated to jimmy ateral lower extremities with assistance as needed, OOB ad francisco., no need for for mal immobilization - Pain controlled IV and oral medications - PT eval - ID consulted: vanc/cefepime at this time Associated attestation - Colt Mchugh MD - 10/08/2021 4:34 PM EST I saw and evaluated the patient. I reviewed all of the imaging studies with the resident/fellow/PA. I agree with the resident/fellow/PA and plan as discussed. Patient remains neurologically stable. She has cultures pending and ID is trever wing. Anticipate fpc abx Will continue drain and follow progress * Lily Cazares RN - 10/07/2021 4:54 PM EST Pt approximately 7 hours since voiding and 5 hours post-op. Bladder scanned for 133 mL. Pt getting NS at 100 mL/hr. PO intake is poor. Team paged. * Lily Cazares RN - 10/07/2021 3:49 PM EST Pharmacy contacted regarding Vancomycin verification delay. Pharmacy stated that there has been confusion in regards to how and when the Vancomycin was ordered. Pt resting comfortably on 2L nasal canula. VSS. Will continue to monitor. * Lily Monroe OT - 10/07/2021 10:07 AM EST Occupational Therapy Acute Care Missed Visit Note Location: Per chart Attempted to visit patient for therapy, but was unable for the following reasons: Patient went to OR. (Therapist may be reached on Vocera) SESSION: Duration: 0 CHARGES: - ORDER - OCCUPATIONAL THERAPY CONSULT 1 Units Total treatment minutes: 0.00 Minutes Electronically Signed by: KASI Patel/Liyah, 10/07/2021 10:09:27 AM * Carmencita Gan, PT - 10/07/2021 10:05 AM EST Physical Therapy Acute Care Missed Visit Note Location: bedside Attempted to visit patient for therapy, but was unable for the following reasons: Patient went to OR. (Therapist may be reached on Vocera) SESSION: Duration: 0 CHARGES: Total treatment minutes: Minutes Electronically Signed by: Carmencita Gan DPT, PT 10/07/2021 10:07:08 AM * Netta Webb III, MD - 10/07/2021 7:21 AM EST ORTHOPEDIC SPINE SURGERY PROGRESS NOTE Interval Present History: Doing well this morning. Patient states she has about 6 out of 10 back pain. Denies new numbness/tingling/weakness in lower extremitie s. Denies fevers/chills/nausea/emesis overnight. Aware of plans for OR debrideme nt today. Vital Signs: Temp: [36.4 C (97.5 F)-37 C (98.6 F)] 36.8 C (98.2 F) Pulse: [79-105] 105 Resp: [14-18] 18 BP: (103-135)/(57-78) 129/67 SpO2: [92 %-96 %] 94 % O2 Therapy: Oxygen O2 Flow Rate (L/min): [2 L/min] 2 L/min PHYSICAL EXAM General: Patient is awake and alert. No acute distress. Appears comfortable in b ed. Lungs: Unlabored respirations. Back: Incision well healed without evidence of erythema or palpable fluid collec tions Extremities: Motor Exam: IP Q H Gas TA EHL FHL R 5 5 5 5 5 4 5 L 5 5 5 5 5 5 5 RLE: Sensation intact to light touch in the L2-S1 dermatomal distributions. No sustained ankle clonus LLE: Sensation intact to light touch in the L2-S1 dermatomal distributions. No sustained ankle clonus Extremities warm and well perfused. Data Reviewed CBC: Lab Results Component Value Date WBC 11.1 (H) 10/07/2021 RBC 3.67 (L) 10/07/2021 HGB 9.0 (L) 10/07/2021 HCT 28.4 (L) 10/07/2021 PLT 435 (H) 10/07/2021 BMP: Lab Results Component Value Date NA 134 (L) 10/07/2021 K 3.5 10/07/2021 CL 100 10/07/2021 BICARBONATE 25 10/07/2021 GLUCOSE 98 10/07/2021 BUN 7 10/07/2021 CREATININE 0.45 (L) 10/07/2021 BCR 15 10/07/2021 GFRAA >90 10/07/2021 GFRNONAA >90 10/07/2021 Coagulation: Lab Results Component Value Date INR 1.25 10/05/2021 Assessment: Hesham John is a 46 y.o. female s/p ALIF L1-L5 and PSIF L1-L5 on 05/31/[address] Mchugh with subsequent revision on 07/11/2021 with extension to sacrum. Patient has recurrence of lower back pain, subjective fevers and chills, and rec ent MRI showing fluid collection over the posterior lumbar spine beneath previou s surgical incision site, in contact with the underlying's spinal instrumentatio n. Initially planned for IR aspiration but was told by weekend on-call doctor at this would have to wait until Friday due to credentialing issues. Given the u rgency of this situation, will plan for OR debridement with cultures given the c oncern for abscess vs infected seroma. Plan: - NPO @ this time. Plan for OR on 10/07 for washout (TODAY) - Spoke with weekend IR attending (Dr. Chávez) regarding aspiration. Was told addison t only certain attendings can perform this procedure and that it would have to w ait until Friday (10/08) when Dr. Martinez is available to do this. - Holding anticoagulation and DVT prophylaxis pending OR - No head of bed restrictions. Patient can be weightbearing as tolerated to jimmy ateral lower extremities with assistance as needed, OOB ad francisco., no need for for mal immobilization - Pain controlled IV and oral medications - Blood cultures sent: currently growing gram + cocci concerning for staph - ID consulted: OK to hold abx at this time given patient is not septic/to aid i n diagnosis after cultures obtained. Will plan to start on vanc/cefepime after O R; follow-up nares cultures Associated attestation - Colt Mchugh MD - 10/07/2021 10:30 AM EST I saw and evaluated the patient. I reviewed all of the imaging studies with the resident/fellow/PA. I agree with the resident/fellow/PA and plan as discussed. D/w patient her clinical course. At this point options of delaying for aspirati on vs surgery discussed. She agrees to proceed to open debridement. Her time course for a "typical" post op infection is a little delayed. I asked h er if she had any other potential sources like dental work, open wounds or urina ry issues for which she denies. I agree with the neurological exam documented by the resident .. IP Q H Gas TA EHL FHL R 5 5 5 5 5 4 5 L 5 5 5 5 5 5 5 I discussed possibility of CSF leak. We will manage as best as we can if we fin d one. I will document in the op note and brief op note for the benefit of the ID service if we find one to help with ABX coverage. Patient is well aware of risks to include persistent infection, bleeding, need o f further surgery, hardware issues and neurological injury. General medical iss ues remain a risk as well .The relative risks, benefits, and alternatives were d iscussed. These risks include but are not limited to bleeding, infection, need o f repeat surgery, nerve, blood vessel injury, cardiac collapse, and . Risk s of not healing to include wound dehiscence, malunion and non-union were discu ssed. Risks of hardware mal placement and hardware migration were discussed. W e discussed specifically the possibility of vascular events to in include but no t limited to blood clots in the arms or legs (DVT), pulmonary embolism, stroke o f the brain or spinal cord or heart attack. Specific to spinal surgery risks of neurological to include new or worsened numbness, tingling pain or weakness, bl adder and/or bowl incontience with the severest form being paralysis. Possible c omplications even after surgery to include hardware dislodgement and fracture th at may result in injury to include paralysis, infection or visceral and vascular injury have been reviewed. The potential need for further surgery has also been discussed. * Minor Wellington RN - 10/07/2021 1:54 AM EST Was notified by Kelsea Mishra RN, that lab called stating blood cultures showed gram positive cocci in clusters, suggestive of staph, in the aerobic bottle. Sa alex Lewis MD notified. * Kelsea Mishra RN - 10/07/2021 1:51 AM EST Lab called w/ results of blood cx's that showed gram (+) cocci in clusters, sugg estive of staph, in the aerobic bottle. Bedside RN Vonnie Wellington made aware. * Lily Cazares RN - 10/06/2021 5:19 PM EST Images from the original note were not included. If wound was present on admission, this documentation was sent to attending prov ider for cosignature. * Janeth Masterson RN - 10/06/2021 4:51 PM EST Report given to Nicole STANFORD on 7A. * Netta Webb III, MD - 10/06/2021 9:07 AM EST ORTHOPEDIC SPINE SURGERY PROGRESS NOTE Interval Present History: Patient complaining of significant lowerback pain this morning. Feels feverish and endorses chills. Denies new lower extremity weaknes s/numbness/tingling. Denies bowel/bladder incontinence. Vital Signs: Temp: [36.6 C (97.9 F)-36.9 C (98.5 F)] 36.6 C (97.9 F) Pulse: [85-105] 93 Resp: [13-19] 17 BP: (116-127)/(55-86) 116/57 SpO2: [85 %-98 %] 92 % O2 Therapy: Oxygen O2 Flow Rate (L/min): [2 L/min] 2 L/min PHYSICAL EXAM General: Patient is awake and alert. No acute distress. Appears comfortable in b ed. Lungs: Unlabored respirations. Back: Incision well healed without evidence of erythema or palpable fluid collec tions Extremities: Motor Exam: IP Q H Gas TA EHL FHL R 5 5 5 5 5 4 5 L 5 5 5 5 5 5 5 RLE: Sensation intact to light touch in the L2-S1 dermatomal distributions. No sustained ankle clonus Downgoing Babinski reflex LLE: Sensation intact to light touch in the L2-S1 dermatomal distributions. No sustained ankle clonus Downgoing Babinski reflex Extremities warm and well perfused. Data Reviewed CBC: Lab Results Component Value Date WBC 12.6 (H) 10/05/2021 RBC 3.88 (L) 10/05/2021 HGB 9.6 (L) 10/05/2021 HCT 30.3 (L) 10/05/2021 PLT 530 (H) 10/05/2021 BMP: Lab Results Component Value Date NA 138 10/05/2021 K 3.9 10/05/2021 CL 97 (L) 10/05/2021 BICARBONATE 27 10/05/2021 GLUCOSE 87 10/05/2021 BUN 10 10/05/2021 CREATININE 0.69 10/05/2021 BCR 14 10/05/2021 GFRAA >90 10/05/2021 GFRNONAA >90 10/05/2021 Coagulation: Lab Results Component Value Date INR 1.25 10/05/2021 Assessment: Hesham John is a 46 y.o. female s/p ALIF L1-L5 and PSIF L1-L5 on 05/31/[address] Mchugh with subsequent revision on 07/11/2021 with extension to sacrum. Patient has recurrence of lower back pain, subjective fevers and chills, and rec ent MRI showing fluid collection over the posterior lumbar spine beneath previou s surgical incision site, in contact with the underlying's spinal instrumentatio n. Plan for admission to the orthopedic spine service with plan for IR aspiratio n. Plan: - Spoke with weekend IR attending (Dr. Chávez) regarding aspiration. Was told addison t only certain attendings can perform this procedure and that it would have to w ait until Friday when Dr. Martinez is available to do this. Therefore, will plan on IR aspiration 10/08. - NPO @ this time. Plan for OR on 10/07 for washout - Holding anticoagulation and DVT prophylaxis pending IR procedure - No head of bed restrictions. Patient can be weightbearing as tolerated to jimmy ateral lower extremities with assistance as needed, OOB ad francisco., no need for for mal immobilization - Pain controlled IV and oral medications - Blood cultures sent - ID to be consulted Associated attestation - Colt Mchugh MD - 10/06/2021 5:58 PM EST I corresponded with resident team and at this time due to the inability to have and aspiration completed by IR we will plan for open I and D. If there is a spi nal fluid lead we will manage it as best as we can as I am concerned with undue delay documented in this encounter H&P Notes * Joe Desai MD - 10/05/2021 10:05 PM EST Images from the original note were not included. ORTHOPEDIC SPINE SURGERY CONSULT NOTE The consult was called at 2058. I saw that patient at 2099. CHIEF COMPLAINT: Postop pain, s/p lumbar spinal fusion revision HPI: Hesham John is a 46 y.o. female known to the orthopedic spine service with a history of ALIF L1-L5 and PSIF L1-L5 on 05/31/[address] Mchugh. Patient was doing well postoperatively, but then had recurrence of lower back pain with nima rologic symptoms earlier this year, and eventually underwent revision lumbar fus ion with extension on 07/11/2021, operative notes not in epic chart. Patient was initially doing well postoperatively, however she began to have recurrence of l ower back pain causing her to start using her walker again when ambulating, and recently began to have some systemic symptoms of subjective fevers and chills. Patient contacted the orthopedic spine service for further evaluation and receiv ed MRI in the outpatient setting on 10/04/2021. Patient's MRI showed a fluid co llection posterior to the lumbar spine between the surgical incision and the imp lant hardware, and the patient was instructed to report to the [facility] ED for fu rther evaluation. In the ED, imaging and notes were reviewed, and orthopedic ange marino was consulted for further evaluation and management. At this time, patient notes significant lower back pain, with some radiation binu n the bilateral lower extremities, left greater than right. She notes of associ ated numbness in the buttock radiating down the posterior aspect of her legs on her lateral foot associated with the pain. She notes that the pain is worsened with activity, and standing, and that she has not found anything that relieves t he pain. She notes that she has some associated headaches, body aches, chills, subjective low-grade fevers over the previous days, but denies any nausea, vomit ing, abdominal pain, constipation, loss of bowel or bladder, saddle anesthesia, or worsening of her radicular symptoms. She denies any weakness in her bilatera l lower extremities, and notes that the previously noted radicular pain and numb ness has been minimally improving. Patient denies any additional associated sym ptoms. She has a PMH significant for obesity, cholelithiasis, anxiety, depression, lowe r back pain, pancreatitis She has a past surgical history significant for cholecystectomy, Achilles tendon s repair at [facility] orthopedics, right ankle surgery by Dr. Adkins in [facility] umbar spinal fusion and revision by Dr. Mchugh Family History: non-contibutory SOCIAL HISTORY She lives in [place], [place]. 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 She notes she very seldomly uses alcohol, denies nicotine or tobac co use, denies illicit drug use. She Is a community ambulator at baseline, previ ously did not need walker following lumbar revision surgery, but has began using it as of recent due to pain. at baseline. She is able to perform her activities of daily living independently. The remainder of her history is as described below. REVIEW OF SYSTEMS A complete review of systems was completed at time of consult. See HPI for pert inent positives and negatives. All other systems negative. Past Medical History: Diagnosis Date Anxiety Cholelithiasis Depression 05/30/2014 Low back pain Lumbar radiculopathy 04/12/2020 Pancreatitis with Gallbladder problems(2013) Past Surgical History: Procedure Laterality Date ACHILLES TENDON SURGERY ANKLE FRACTURE SURGERY BILIARY DRAINAGE CATHETER PLACEMENT W/ BILE DUCT TUBE CHANGE CHOLECYSTECTOMY cholecystostomy tube placement 05/2014 FRACTURE SURGERY Right ankle/ORIG and removal of hardware left achilles heel spur removal [place] ANTERIOR COLPORRAPHY RPR CYSTOCELE W/CYSTO N/A 07/31/2016 Procedure: ANTERIOR COLPORRHAPHY, REPAIR, CYSTOCELE W/WO REPAIR, URETHROCELE; Surgeon: Jeronimo Hinson MD; Location: OR [facility]; Service: Gynecology; Laterali ty: N/A; [place] LAP,CHOLECYSTECTOMY N/A 08/12/2014 Procedure: LAPAROSCOPIC CHOLECYSTECTOMY; Surgeon: Mariajose Leiva MD; Location: OR [facility]; Service: General; Laterality: N/A; [place] SLING OPER STRES INCONTINENCE N/A 07/31/2016 Procedure: ANTERIOR REPAIR, SLING, CYSTOSCOPY; Surgeon: Jeronimo Hinson MD; L ocation: OR [facility]; Service: Gynecology; Laterality: N/A; SPINE SURGERY 05/31/2020 Lumbar fusion SPINE SURGERY 07/11/2021 lumbar fusion No Known Allergies No current facility-administered medications on file prior to encounter. Current Outpatient Medications on File Prior to Encounter Medication Sig Dispense Refill Celecoxib 200 MG Oral Capsule (CeleBREX) Take 200 mg by mouth Two Times D aily DULoxetine HCl 60 MG Oral Capsule Delayed Release Particles (CYMBALTA) Ta ke 60 mg by mouth daily Ergocalciferol 1.25 MG (89679 UT) Oral Capsule (ERGOCALCIFEROL) Vitamin D 2 1,250 mcg (50,000 unit) capsule TAKE 1 CAPSULE BY MOUTH ONCE A MONTH Lurasidone HCl 80 MG Oral Tablet (Latuda) Take 80 mg by mouth daily Pregabalin 100 MG Oral Capsule (Lyrica) Take 100 mg by mouth Two Times Da bianca OBJECTIVE: Temp: [36.7 C (98.1 F)] 36.7 C (98.1 F) Pulse: [96-105] 96 Resp: [15-17] 17 BP: (116-120)/(73-80) 120/80 SpO2: [97 %-98 %] 97 % O2 Therapy: Room air General: No acute distress. She appears well developed and well nourished Lungs: Unlabored respirations Neurological: Awake, alert and oriented. Back: no midline bony tenderness on palpation of the cervical, thoracic or lumba r spine. No bony step-offs or deformity. Patient has a well-healed surgical inc ision over the lumbar spine with immature scar formation from about L5 to the to p of the sacrum. No obvious erythema or drainage. No palpable fluctuance Extremities: Motor Exam: Deltoid Biceps Triceps WE WF Gr IO Right 5 5 5 5 5 5 5 Left 5 5 5 5 5 5 5 IP Quad Ham TA EHL Gastroc Right 5 5 5 5 4+ 5 Left 5 5 5 5 5 5 RUE: Sensation intact to light touch in the C5-T1 dermatomal distributions. Negative Klein's sign. LUE: Sensation intact to light touch in the C5-T1 dermatomal distributions. Negative Klein's sign. RLE: Sensation intact to light touch in the L2-S1 dermatomal distributions. No ankle clonus Downgoing Babinski reflex LLE Sensation intact to light touch in the L2-S1 dermatomal distributions. No ankle clonus Downgoing Babinski reflex Sensation intact to perianal region. Normal Rectal Tone Post-void residual volume: Pending All 4 Extremities warm, well-perfused without other signs of injury or compromis e Laboratory studies independently reviewed. Recent Labs Lab 10/05/212125 WBC 12.6* RBC 3.88* HGB 9.6* HCT 30.3* PLT 530* NEUTOPHILPCT 73 MONOPCT 8 EOSPCT 3 K 3.9 CL 97* BICARBONATE 27 GLUCOSE 87 BUN 10 CREATININE 0.69 BCR 14 GFRAA >90 GFRNONAA >90 CALCIUM 8.9 ESR 103* Lab Results Component Value Date INR 1.19 06/01/2014 INR 1.09 05/31/2014 ESR: 103 CRP: 273 WBC 12.6 RADIOLOGY: Radiographic studies independently reviewed. MRI lumbar spine, 10/04/2021: Patient is s/p surgical changes to the lumbar spin e. There is instrumentation with fusion from L1-S1 with a visible fluid collect ion over the posterior aspect of the instrumentation deep to the surgical incisi on site. The surgical meditations/fusion instruments appear well fixed signs of acute loosening. ASSESSMENT: Hesham John is a 46 y.o. female s/p ALIF L1-L5 and PSIF L1-L5 on 05/31/[address] Mchugh with subsequent revision on 07/11/2021 with extension to sacrum. Patient has recurrence of lower back pain, subjective fevers and chi lls, and recent MRI showing fluid collection over the posterior lumbar spine shaniqua eath previous surgical incision site, in contact with the underlying's spinal in strumentation. Patient's inflammatory labs are concerning for possible underlyi ng infection, but further evaluation of the fluid collection will provide more d efinitive results. Will plan for admission to the orthopedic spine service with plan for IR aspiration of the underlying fluid collection in the a.m. with furt her plan pending aspiration and drainage. PLAN: - Plan for IR aspiration and drainage of lumbar fluid collection in a.m., furthe r plan pending results - Admit to Orthopedic Spine service - NPO at midnight for procedure - Holding anticoagulation and DVT prophylaxis pending IR procedure - Pre-operative labs ordered: type and screen, basic metabolic panel, complete b lood count, coagulation studies, EKG, CXR, - No head of bed restrictions. Patient can be weightbearing as tolerated to jimmy ateral lower extremities with assistance as needed, OOB ad francisco., no need for for mal immobilization - Pain controlled IV and oral medications - Will repeat secondary exam tomorrow Joe Desai, PGY-2 Department of Orthopedic Surgery [phone] Associated attestation - Colt Mchugh MD - 10/06/2021 5:56 PM EST Reviewed case with resident this AM. Patient with elevated markers of infection . MRI differential included infection vs pseudomeningocele. Had requested IR aspiration but unfortunately radiology informed us that the att ending quality assurance monitor chassis is not credentialed to complete an image guided aspiration which limits our options. Will seek ID input and will plan for I and D. She has been clinically stable so we will add her on for AM 10/07/21 documented in this encounter Procedure Notes * David Noble MD - 10/05/2021 10:53 PM EST Associated Order(s): 1ED EKG Interpretation 1ED EKG Interpretation Date/Time: 10/05/2021 10:53 PM Performed by: David Noble MD Authorized by: Colt Mchugh MD ECG reviewed by ED Physician in the absence of a professor of forestry: yes Interpretation: Interpretation: normal Rate: ECG rate assessment: normal Rhythm: Rhythm: sinus rhythm QRS: QRS axis: Normal QRS intervals: Normal Conduction: Conduction: normal ST segments: ST segments: Normal T waves: T waves: normal documented in this encounter Consult Notes * Lyn Bolanos MD - 10/06/2021 3:04 PM EST Images from the original note were not included. [address] [id number] Hesham John [id number] 46 y.o. year old female 10/05/2021 Colt Mchugh MD INFECTIOUS DISEASE CONSULT ATION Reason for Consult/Chief Complaint: Lumber fluid collection. Requested By: Colt Mchugh MD Fellow: Saroj Zamora M.D SUBJECTIVE HISTORY OF PRESENT ILLNESS: Mr Hesham John is a 46 y.o. female with history of obesity, DONNELL/MDD/Achilles tendon repair along with recent L1-L5 ALIF/PSIF on 05/31/2021 with revision done on 07/11/2021 w/ extension. The patient did well approximately 6 weeks postopera tively when she started developing back pain, numbness in her legs, radiating pa in from the back to bilateral lower extremity eventually received MRI of the lum bar 10/04/2021 spine for further evaluation that showed 6 x 3 x 16 cm fluid scott ection around the lumbar spine along with L1 to iliac fossa hardware. Due to th e concern finding of MRI with high suspicion of abscess formation versus osteomy elitis he was instructed to go to the ER where she presented on 10/05/2021. ADDITIONAL EXPOSURE HX: Indwelling hardware: L1 to iliac fossa ROS: Review of system positive for severe back pain radiating to bilateral lower extr emities more on the left side, numbness, tingling bilateral lower extremity, hea daches for 2 weeks. All other systems reviewed found to be negative except as m entioned in HPI. PAST MEDICAL HX: Past Medical History: Diagnosis Date Anxiety Cholelithiasis Depression 05/30/2014 Low back pain Lumbar radiculopathy 04/12/2020 Pancreatitis with Gallbladder problems(2013) PAST SURGICAL HX Past Surgical History: Procedure Laterality Date ACHILLES TENDON SURGERY ANKLE FRACTURE SURGERY BILIARY DRAINAGE CATHETER PLACEMENT W/ BILE DUCT TUBE CHANGE CHOLECYSTECTOMY cholecystostomy tube placement 05/2014 FRACTURE SURGERY Right ankle/ORIG and removal of hardware left achilles heel spur removal [place] ANTERIOR COLPORRAPHY RPR CYSTOCELE W/CYSTO N/A 07/31/2016 Procedure: ANTERIOR COLPORRHAPHY, REPAIR, CYSTOCELE W/WO REPAIR, URETHROCELE; Surgeon: Jeronimo Hinson MD; Location: [facility]; Service: Gynecology; Laterali ty: N/A; [place] LAP,CHOLECYSTECTOMY N/A 08/12/2014 Procedure: LAPAROSCOPIC CHOLECYSTECTOMY; Surgeon: Mariajose Leiva MD; Location: OR 5E; Service: General; Laterality: N/A; [place] SLING OPER STRES INCONTINENCE N/A 07/31/2016 Procedure: ANTERIOR REPAIR, SLING, CYSTOSCOPY; Surgeon: Jeronimo Hinson MD; L ocation: OR 5E; Service: Gynecology; Laterality: N/A; SPINE SURGERY 05/31/2020 Lumbar fusion SPINE SURGERY 07/11/2021 lumbar fusion Home medications: Home Medications Medication Sig Celecoxib 200 MG Oral Capsule (CeleBREX) Take 200 mg by mouth Two Times Daily DULoxetine HCl 60 MG Oral Capsule Delayed Release Particles (CYMBALTA) Take 60 m g by mouth daily Ergocalciferol 1.25 MG (96974 UT) Oral Capsule (ERGOCALCIFEROL) Vitamin D2 1,250 mcg (50,000 unit) capsule TAKE 1 CAPSULE BY MOUTH ONCE A MONTH Lurasidone HCl 80 MG Oral Tablet (Latuda) Take 80 mg by mouth daily Pregabalin 100 MG Oral Capsule (Lyrica) Take 100 mg by mouth Two Times Daily Allergies: No Known Allergies Social History: Social History Socioeconomic History Marital status: Single Spouse name: Not on file Number of children: Not on file Years of education: Not on file Highest education level: Not on file Occupational History Employer: UNEMPLOYED Tobacco Use Smoking status: Former Smoker Smokeless tobacco: Never Used Vaping Use Vaping Use: Never used Substance and Sexual Activity Alcohol use: Yes Alcohol/week: 0.0 standard drinks Comment: rarely/holidays Drug use: No Sexual activity: Not Currently Other Topics Concern Not on file Social History Narrative Not on file Social Determinants of Health Financial Resource Strain: Not on file Food Insecurity: Not on file Transportation Needs: Not on file Physical Activity: Not on file Stress: Not on file Social Connections: Not on file Intimate Partner Violence: Not on file Housing Stability: Not on file Family History: Family History Problem Relation Age of Onset Stroke Mother Heart disease Father Hypertension Father Stroke Maternal Grandmother Heart disease Paternal Grandmother Hypertension Paternal Grandmother Heart disease Paternal Grandfather Hypertension Paternal Grandfather OBJECTIVE Vital signs: Vitals: 10/06/21 0600 10/06/21 0755 10/06/21 1103 10/06/21 1311 BP: 119/70 (!) 116/57 111/61 107/76 BP Location: Right arm Left arm Left arm Patient Position: Lying Lying Lying Pulse: 88 93 79 83 Resp: 19 17 16 15 Temp: 36.6 C (97.9 F) 36.6 C (97.8 F) 37 C (98.6 F) TempSrc: Oral Oral Oral SpO2: 92% 92% 92% 95% Weight: Height: Tmax: Temp (24hrs), Av.8 C (98.2 F), Min:36.6 C (97.8 F), Max:37 C (98.6 F) PHYSICAL EXAM General: Patient in acute distress due to back pain Head: Normocephalic, atraumatic ENT: CAITLIN, EOMI, hearing nl, nasal nl, MMM Neck: Supple, no JVP, no Carotid Bruits Cardiac: RRR, S1 & S2. No M/R/G Respiratory: B/L equal air entry, no wheezes/rales/rhonchi Abdomen: Soft, BS+, nontender all very distended diffusely due to obesity Extremities: Warm and well perfused. No edema. Skin: intact, postsurgical scar present in the lower thoracic upper lumbar area , well-healed no discharge present. Neuro: No focal neurological deficits, Psych: A&O x4, nl mood, no encephalopathy LINES & CATHETERS: All lines and catheters were examined and no signs of infection, such as erythem a, tenderness, discharge, were observed. Peripheral IV 10/05/21 Right Antecubital (Active) Site Assessment Clean;Dry;Intact 10/06/21 1400 Line Status Infusing 10/06/21 1400 Line Care Connections checked and tightened 10/06/21 1400 Dressing Type Tegaderm 10/06/21 1400 Dressing Status Clean;Dry;Intact 10/06/21 1400 Number of days: 0 Open Drain Right Abdomen 8.5 Fr. (Active) Number of days: 2684 DATA REVIEW Pertinent lab/imaging data was reviewed by me today as follows: LAB DATA: Recent Labs Lab 10/05/212125 HGB 9.6* HCT 30.3* WBC 12.6* PLT 530* Lab Results Component Value Date NEUTOPHILPCT 73 10/05/2021 LYMPHOPCT 14 10/05/2021 MONOPCT 8 10/05/2021 EOSPCT 3 10/05/2021 Lab Results Component Value Date NA 138 10/05/2021 K 3.9 10/05/2021 CL 97 (L) 10/05/2021 BICARBONATE 27 10/05/2021 GLUCOSE 87 10/05/2021 BUN 10 10/05/2021 CREATININE 0.69 10/05/2021 Lab Results Component Value Date PROT 7.3 10/05/2021 ALBUMIN 3.1 (L) 10/05/2021 AST 10 10/05/2021 ALT 10 10/05/2021 TBILI 0.2 10/05/2021 ALKPHOS 92 10/05/2021 Lab Results Component Value Date INR 1.25 10/05/2021 IMAGING & OTHER INVESTIGATIONS: MR Lumbar Spine without Contrast Result Date: 10/05/2021 EXAM: MRI LUMBAR SPINE WITHOUT CONTRAST INDICATION: Low back pain, prior surgery , new symptoms, infection suspected COMPARISON: Lumbar spine radiographs 021. No previous MRI for comparison. TECHNIQUE: Multiplanar multisequence MR sharon ging of the lumbar spine was performed without intravenous contrast. Exam was pe rformed on a 1.5 [employer] MRI unit. FINDINGS: Vertebrae: For the purposes of nom enclature, the lowest fully formed intervertebral disc corresponds to L5-S1. Po stsurgical changes of L1-iliac posterior instrumented fusion are seen with bilat eral transpedicular screws, interconnecting stabilization rods and interbody cag es, with multilevel lumbar laminectomy decompression. Susceptibility artifact r elated to the orthopedic hardware limits the regional evaluation, partially appe aring central canal, foraminal and vertebra. Metal artifact limits marrow signal evaluation. Spinal cord and Conus: The conus is partially obscured by metal art ifact, although appears terminate at the L1 vertebral level. Cauda equina is par tially obscured by metal artifact at multiple levels. Intervertebral discs/Spina l canal/Neural foramina: Interbody cages are seen at L1-2, L2-3, L3-4, L4-5 and L5-S1 with associated metal artifact. T10-11: Included on the sagittal images on ly. Chronic disc desiccation with mild disc height loss. Broad-based dorsal disc protrusion effaces the ventral CSF signal and mildly flattens the ventral cord with at least mild central canal stenosis. No cord signal abnormality. No forami nal stenosis. T11-12: Tiny central dorsal disc protrusion. No central canal, lat eral recess or foraminal narrowing. T12-L1: No disc protrusion, bulge, central c anal, lateral recess or foraminal narrowing. Small hyperintense T2 signal right neural foraminal perineural cyst. Ligament flavum thickening and mild facet arth ropathy are also seen. L1-2: Status post laminectomy and posterior fusion. Small dorsal endplate spurring. No recurrent disc protrusion, bulge or central canal or lateral recess narrowing. No foraminal stenosis. L2-3: Status post laminectom y and posterior fusion. Small dorsal endplate spurring and mild shallow broad-ba sed left lateral recess and foraminal disc bulge with mild left foraminal narrow ing. L3-4: Status post laminectomy and posterior fusion. Small dorsal endplate s purring. No dorsal disc protrusion, bulge or central canal or foraminal stenosis . L4-5: Status post posterior fusion and laminectomy decompression. There is foc al fluid signal within the L4 5 mm posterior to the intervertebral disks, with m oderate to intense hypointense T1 and hyperintense STIR endplate marrow edema li ke signal. Findings are concerning for discitis and osteomyelitis. Moderate broa d-based dorsal disc extrusion flattens the ventral thecal sac, with moderate lef t and mild right lateral recess narrowing. There is also abnormal anterior epidu ral fluid at the L4 vertebral body level, which may represent anterior epidural edema fluid and/or abscess. There is moderate flattening of the dorsal aspect of the thecal sac with mild to moderate central canal stenosis. Severe right and m oderate left foraminal stenosis. L5-S1: Status post posterior fusion and laminec eli decompression. There is endplate based marrow edema and focal fluid signal within the intervertebral disc, and findings are also suspicious for L5-S1 disci tis/synovitis. Broad-based dorsal disc protrusion causes severe right and left f oraminal narrowing with bilateral L5 nerve root flattening. There is also abnorm al anterior epidural fluid representing edema and/or abscess and also moderate t o severe flattening of the thecal sac from mass effect from the dorsal paraspina l fluid collection. Soft tissues: There is a large hypointense T1 and hyperinten se T2 signal deep posterior midline fluid collection extends 6.4 x 3.4 x 16.3 cm (transverse by AP by craniocaudal) from the L1-S1 laminectomy defects and direc tly abuts the dorsal thecal sac. There is flattening of the dorsal thecal sac fr om this large fluid collection and L3-4, L4-5 and L5-S1 disc level, with dominan t moderate thecal sac flattening at L4-5. Muscle body atrophy diffusely througho ut the paraspinal muscles, with superimposed diffuse paraspinal soft tissue missy a. Paravertebral soft tissue edema and small perivertebral fluid locules are see n at the L4-5 and L5-S1 levels. There is a hyperintense T1 and hyperintense T2 s ignal fat-containing 5.5 x 4.6 cm right adrenal adenoma. IMPRESSION: 1. Postsurgical changes of L1-iliac posterior instrumented fusion wi th laminectomy decompression. Large 6.4 x 3.4 x 16.3 cm deep posterior midline p araspinal fluid collection at the laminectomy defects, with imaging differential : Post surgical seroma, infectious abscess, versus pseudomeningocele, and fluid collection exerts significant mass effect on the dorsal thecal sac with associat ed dorsal thecal sac flattening at L4-5 and L5-S1 and dominant moderate to sever e thecal sac flattening at L5-S1. Further clinical correlation is advised. 2. La rge amount of paraspinal and perivertebral soft tissue edema and soft tissue stewart ma at the L4-5 and L5-S1, with small locules of perivertebral fluid, with L4-5 a nd L5-S1 endplate marrow and disc changes highly suspicious for infectious disci tis/osteomyelitis and surrounding perivertebral soft tissue infection, abscesses and associated anterior epidural fluid and/or abscess. 3. Multilevel bilateral foraminal stenosis L4-5, L5-S1. Please see full discussion above. The above sign ificant results of discitis/osteomyelitis with anterior epidural, prevertebral a nd paraspinal soft tissue infection, fluid collections and large dorsal paraspin al fluid collection/abscess were discussed with [facility] Le hugh Mccullough via telephone at 1020 hours on 10/05/2021 with verification and understanding. XR Chest Frontal Only Result Date: 10/05/2021 PROCEDURE INFORMATION: Exam: XR Chest Exam date and time: 10/05/2021 10:19 PM Ag e: 46 years old Clinical indication: Other: Preop TECHNIQUE: Imaging protocol: X R of the chest. Views: 1 view. COMPARISON: No relevant prior studies available. FINDINGS: Lungs: Unremarkable. No consolidation. Pleural spaces: Unremarkable. N o pleural effusion. No pneumothorax. Heart/Mediastinum: Unremarkable. No cardiom egaly. Bones/joints: Unremarkable. IMPRESSION: No acute findings. THIS DOCUMENT HAS BEEN ELECTRONICALLY SIGNED BY MOOK CARRASQUILLO MD CURRENT MEDICATIONS: acetaminophen (TYLENOL) tablet 650 mg Oral 4 times per day docusate sodium 100 mg Oral BID Or docusate 100 mg Oral BID DULoxetine 60 mg Oral Daily lurasidone HCl 80 mg Oral Daily pregabalin 100 mg Oral BID senna 10 mL Oral Nightly Or senna 2 tablet Oral Nightly vitamin D 50,000 Units Oral Q7 Days fentaNYL, ondansetron OR ondansetron, oxyCODONE OR oxyCODONE, polyethyle ne glycol sodium chloride 100 mL/hr (10/06/21 1349) Antibiotic Orders Diet Adult; NPO; PO Meds starting at 10/06 1112 MICROBIOLOGY: N/A ECHO: N/A QT/QTC= N/A ASSESSMENT & PLAN WITH RECOMMENDATIONS Hesham John is a 46 y.o. female presented with lower back pain with MRI find ings suggestive of fluid collection/abscess formation and could not rule out ost eomyelitis with hardware infection. At this time it is reasonable to hold off o n the antibiotics to get good quality cultures since the plan per the primary te am upon talking is to take her to the OR in the a.m. for a washout. Most of the organism that has to be covered are coagulase negative Staphylococcus, MSSA, M RSA as well as gram-negative biofilm forming organisms. Lumbar paraspinal fluid collection/abscess formation/possible PJI At this time it is reasonable to hold off on antibiotics. Please send MRSA nares. Would recommend starting on IV vancomycin and cefepime post washout and de-escal ate according to the cultures and sensitivities. Will continue to follow. Thank you for allowing us to participate in this patie nt's care. Please call [phone] with questions or changes in condition. Patient seen. Plan of care discussed and co-formulated with MD Saroj Brand M.D Fellow PGY - 4 Infectious Disease & Critical Care Medicine Patient personally seen and examined. History of illness/clinical updates gathe red. Vital signs, labs, imaging (MRI lumbar spine, concern for possible vertebra l osteomyelitis) microbiology and applicable chart notes personally reviewed. P reid discussed with ID team and fellow note reviewed and agree with plan, with th e following additions: 46 yo woman p/w fluid collection along thoracic vertebrae concerning for abscess and possible vertebral osteomyelitis. Given duration of infection, less virule nt organism like coag neg staph or gram negatives are of concern. -as patient is stable, agree with holding off on starting antibiotics until OR c ultures can be obtained, in order to maximize culture yield. Once cultures are obtained, rec starting vanco (as per pharm protocol) and cefepime 2 g IV q8 - rec MRSA nares - will follow documented in this encounter ED Notes * David Noble MD - 10/05/2021 8:44 PM EST History No Known Allergies Chief Complaint Patient presents with Back Pain Abnormal Radiology Exam MRI Immunization History Administered Date(s) Administered Pfizer SARS-CoV-2 Vaccination 02/02/2021, 03/23/2021 Are patient immunizations up to date?: Yes Patient presents complaining of worsening low back pain. The patient is status post spinal fusion and laminectomy surgery in June 2021 by [facility] . She had been doing well up until 6 weeks ago when she started feeling low nazia k pain that is consistently worsened over time. She now notes the pain is sever e and radiates down her left buttock into her posterior thigh as well as startin g to radiate down the right buttock. She denies any new issues with incontinenc e of bowel or bladder, numbness or weakness in the extremities. She denies abdo juanita pain, vomiting. She does note feeling chills and sweats but no objective fever has been noted by her. She had some lab work done by her PCP that showed an increased white blood cell count, sed rate and CRP. That prompted a MRI to b e done yesterday which revealed concern for postoperative infection. She was re ferred here by her spine surgeon. Past Medical History: Diagnosis Date Anxiety Cholelithiasis Depression 05/30/2014 Low back pain Lumbar radiculopathy 04/12/2020 Pancreatitis with Gallbladder problems(2013) Past Surgical History: Procedure Laterality Date ACHILLES TENDON SURGERY ANKLE FRACTURE SURGERY BILIARY DRAINAGE CATHETER PLACEMENT W/ BILE DUCT TUBE CHANGE CHOLECYSTECTOMY cholecystostomy tube placement 05/2014 FRACTURE SURGERY Right ankle/ORIG and removal of hardware left achilles heel spur removal [place] ANTERIOR COLPORRAPHY RPR CYSTOCELE W/CYSTO N/A 07/31/2016 Procedure: ANTERIOR COLPORRHAPHY, REPAIR, CYSTOCELE W/WO REPAIR, URETHROCELE; Surgeon: Jeronimo Hinson MD; Location: OR [facility]; Service: Gynecology; Laterali ty: N/A; [place] LAP,CHOLECYSTECTOMY N/A 08/12/2014 Procedure: LAPAROSCOPIC CHOLECYSTECTOMY; Surgeon: Mariajose Leiva MD; Location: OR [facility]; Service: General; Laterality: N/A; [place] SLING OPER STRES INCONTINENCE N/A 07/31/2016 Procedure: ANTERIOR REPAIR, SLING, CYSTOSCOPY; Surgeon: Jeronimo Hinson MD; L ocation: OR [facility]; Service: Gynecology; Laterality: N/A; SPINE SURGERY 05/31/2020 Lumbar fusion SPINE SURGERY 07/11/2021 lumbar fusion Family History Problem Relation Age of Onset Stroke Mother Heart disease Father Hypertension Father Stroke Maternal Grandmother Heart disease Paternal Grandmother Hypertension Paternal Grandmother Heart disease Paternal Grandfather Hypertension Paternal Grandfather Social History Tobacco Use Smoking status: Former Smoker Smokeless tobacco: Never Used Vaping Use Vaping Use: Never used Substance Use Topics Alcohol use: Yes Alcohol/week: 0.0 standard drinks Comment: rarely/holidays Drug use: No E-Cigarette Use: Never User Social Screening Review of Systems Constitutional: Positive for chills. Negative for fever. HENT: Negative for sore throat. Eyes: Negative for visual disturbance. Respiratory: Negative for shortness of breath. Cardiovascular: Negative for chest pain. Gastrointestinal: Negative for abdominal pain. Genitourinary: Negative for difficulty urinating. Musculoskeletal: Positive for back pain. Skin: Negative for rash. Neurological: Negative for headaches. Psychiatric/Behavioral: Negative for confusion. Physical Exam Visit Vitals BP 120/80 (BP Location: Left arm, Patient Position: Sitting) Pulse 96 Temp 36.7 C (Oral) Resp 17 Ht 1.651 m Wt 122.5 kg SpO2 97% BMI 44.93 kg/m Physical Exam Vitals and nursing note reviewed. Constitutional: General: She is not in acute distress. Appearance: She is well-developed. She is obese. She is not diaphoretic. HENT: Head: Normocephalic and atraumatic. Mouth/Throat: Mouth: Mucous membranes are moist. Pharynx: Oropharynx is clear. Eyes: Conjunctiva/sclera: Conjunctivae normal. Pupils: Pupils are equal, round, and reactive to light. Cardiovascular: Rate and Rhythm: Normal rate and regular rhythm. Pulses: Normal pulses. Heart sounds: Normal heart sounds. Pulmonary: Effort: Pulmonary effort is normal. Breath sounds: Normal breath sounds. Chest: Chest wall: No tenderness. Abdominal: Palpations: Abdomen is soft. Tenderness: There is no abdominal tenderness. There is no guarding or rebound . Musculoskeletal: General: Tenderness present. Normal range of motion. Cervical back: Normal range of motion. Comments: Mild diffuse bilateral paralumbar tenderness Lymphadenopathy: Cervical: No cervical adenopathy. Skin: General: Skin is warm and dry. Capillary Refill: Capillary refill takes less than 2 seconds. Findings: No rash. Comments: Midline lumbar incision scar peers to be healing well without any d rainage or erythema or tenderness. Neurological: Mental Status: She is alert and oriented to person, place, and time. Comments: Speech clear, patient has 5 out of 5 motor strength in all 4 extrem ities with intact light touch sensation. Psychiatric: Behavior: Behavior normal. ED Course (Entries in this section may reflect care that occurred after patient hand-off a nd are the responsibility of that provider as indicated by their initials.) Procedures MDM Pt presents with concern for infection s/p spinal surgery. Labs ordered and Ort ho consulted. As recent MRI images are in our PACS, additional imaging not indic ated. Patient was admitted to their service. As no definitive sepsis identifie d at time of admission, decision regarding antibiotics was deferred to them. David Noble MD 10/07/21 1850 * Lyn Bailey RN - 10/05/2021 4:44 PM EST Pt arrives to the ER from home with c/o back pain. Pt reports having a spinal fu jacki in June. Pt had an MRI at [facility] yesterday and was told to come to the ER for an infection. MRI results: 1. Postsurgical changes of L1-iliac posterior instrumented fusion with laminecto my decompression. Large 6.4 x 3.4 x 16.3 cm deep posterior midline paraspinal fl uid collection at the laminectomy defects, with imaging differential: Post surgi whit seroma, infectious abscess, versus pseudomeningocele, and fluid collection e xerts significant mass effect on the dorsal thecal sac with associated dorsal th ecal sac flattening at L4-5 and L5-S1 and dominant moderate to severe thecal sac flattening at L5-S1. Further clinical correlation is advised. 2. Large amount of paraspinal and perivertebral soft tissue edema and soft tissu e edema at the L4-5 and L5-S1, with small locules of perivertebral fluid, with L 4-5 and L5-S1 endplate marrow and disc changes highly suspicious for infectious discitis/osteomyelitis and surrounding perivertebral soft tissue infection, absc esses and associated anterior epidural fluid and/or abscess. 3. Multilevel bilateral foraminal stenosis L4-5, L5-S1. Please see full discussi on above. documented in this encounter Miscellaneous Notes * Plan of Care - Cheikh Pearson RN - 10/10/2021 8:52 AM EST Problem: Risk for Falls Goal: No falls during hospitalization Description: Patient will not fall during hospitalization. Outcome: Progressing Problem: Knowledge Deficit Goal: Knowledge - personal safety Description: Patient will verbalize understanding of fall prevention. Outcome: Progressing Problem: INJURY, RISK FOR Goal: Patient will not be injured from a fall during hospitalization Outcome: Progressing Problem: Knowledge Deficit Goal: Patient requires education regarding causes of high risk injury from a fal l Outcome: Progressing Goal: Patient's family requires education regarding causes of high risk injury f rom a fall Outcome: Progressing * Benefit Check - Nuno Connell - 10/09/2021 10:29 AM EST Per [facility] this is a community plan, all services considered at 100%. No deductible . No OOP max. Precertification required at [phone]. Acute rehab: [facility] Snf: [facility], [facility], and [facility] Homecare: [facility], [facility], and hcr [facility] * Plan of Care - Cheikh Pearson RN - 10/09/2021 9:21 AM EST Problem: Risk for Falls Goal: No falls during hospitalization Description: Patient will not fall during hospitalization. Outcome: Progressing Problem: Knowledge Deficit Goal: Knowledge - personal safety Description: Patient will verbalize understanding of fall prevention. Outcome: Progressing Problem: INJURY, RISK FOR Goal: Patient will not be injured from a fall during hospitalization Outcome: Progressing Problem: Knowledge Deficit Goal: Patient requires education regarding causes of high risk injury from a fal l Outcome: Progressing Goal: Patient's family requires education regarding causes of high risk injury f rom a fall Outcome: Progressing * Assessment & Plan Note - Cherrie Reardon OT - 10/08/2021 12:49 PM EST Occupational Therapy Acute Care Functional Living Examination Medical Diagnosis: infected paraspinal fluid collection s/p open irrigation and debridement with wound exploration on 10/07/2021 History of Present Illness: per Epic: "Hesham John is a 46 y.o. female known to the orthopedic spine service with a history of ALIF L1-L5 and PSIF L1-L5 on 05/31/[address] Mchugh. Patient was doing well postoperatively, but then had recurrence of lower back pain with neurologic symptoms earlier this year, and eventually underwent revision lumbar fusion with extension on 07/11/2021, operative notes not in epic chart. Patient was initially doing well postoperatively, however she began to have recurrence of lower back pain causing her to start using her walker again when ambulating, and recently began to have some systemic symptoms of subjective fevers and chills. Patient contacted the orthopedic spine service for further evaluation and received MRI in the outpatient setting on 10/04/2021. Patient's MRI showed a fluid collection posterior to the lumbar spine between the surgical incision and the implant hardware, and the patient was instructed to report to the [facility] ED for further evaluation. In the ED, imaging and notes were reviewed, and orthopedic spine was consulted for further evaluation and management. ? At this time, patient notes significant lower back pain, with some radiation down the bilateral lower extremities, left greater than right. She notes of associated numbness in the buttock radiating down the posterior aspect of her legs on her lateral foot associated with the pain. She notes that the pain is worsened with activity, and standing, and that she has not found anything that relieves the pain. She notes that she has some associated headaches, body aches, chills, subjective low-grade fevers over the previous days, but denies any nausea, vomiting, abdominal pain, constipation, loss of bowel or bladder, saddle anesthesia, or worsening of her radicular symptoms. She denies any weakness in her bilateral lower extremities, and notes that the previously noted radicular pain and numbness has been minimally improving. Patient denies any additional associated symptoms." Date of Admission: 10/05/2021 8:23:00 PM Demographics: Age: 46 Gender: Female Past Medical History and Radiographics: Significant rehabilitation considerations: per Epic: "Past Medical History: DiagnosisDate Anxiety? Cholelithiasis? Sjxxhsbuaf44/07/2014 Low back pain? Lumbar radiculopathy04/12/2020 Pancreatitis? with Gallbladder problems(2013) ? Past Surgical History: ProcedureLateralityDate ACHILLES TENDON SURGERY?? ANKLE FRACTURE SURGERY?? BILIARY DRAINAGE CATHETER PLACEMENT W/ BILE DUCT TUBE CHANGE?? CHOLECYSTECTOMY?? cholecystostomy tube placement?05/2014 FRACTURE SURGERYRight? ?ankle/ORIG and removal of hardware left achilles?? ?heel spur removal [place] ANTERIOR COLPORRAPHY RPR CYSTOCELE W/CYSTON/07/31/2016 ?Procedure: ANTERIOR COLPORRHAPHY, REPAIR, CYSTOCELE W/WO REPAIR, URETHROCELE; Surgeon: Jeronimo Hinson MD; Location: OR 5E; Service: Gynecology; Laterality: N/A; [place] LAP,CHOLECYSTECTOMYN/08/12/2014 ?Procedure: LAPAROSCOPIC CHOLECYSTECTOMY; Surgeon: Mariajose Leiva MD; Location: OR 5E; Service: General; Laterality: N/A; [place] SLING OPER STRES INCONTINENCE07/31/2016 Procedure: ANTERIOR REPAIR, SLING, CYSTOSCOPY; Surgeon: Jeronimo Hinson MD; Location: OR 5E; Service: Gynecology; Laterality: N/A; SPINE SURGERY?05/31/2020 ?Lumbar fusion SPINE SURGERY?07/11/2021 ?lumbar fusion" Rehabilitation Precautions/Restrictions: per ortho spine progress note on 10/08/21, "No head of bed restrictions. Patient can be weightbearing as tolerated to bilateral lower extremities with assistance as needed, OOB ad francisco., no need for formal immobilization" Full code Moderate fall risk SUBJECTIVE Premorbid Level of Activities of Daily Living: Pt reports independence in ADLs. Mom assists with cooking/cleaning and transportation to appointments. Utilizes a rolling walker for ambulation. No falls reported. Occupation: Not currently working Social History: Patient lives alone. . If needed: Family member is willing to assist. Pt's mom is available during the day to help as needed. Home Environment: There are 2 steps to enter the home with Bilateral handrails. There is no ramp to enter the home. Home is a single level. Description of bed and bathroom accessibility: sleeps on flat mattress. Bathroom has a tub shower. Pt has a commode if needed. . Equipment Owned: Rolling walker. Pain: Patient currently complains of pain. Location: low back . Patient describes pain as Aching. Verbal Scale: Patient reports a pain level of 7 out of 10. Will perform therapy only as tolerated. Will inform nurse. Pain Medication Today: yes. OBJECTIVE General Observation: Pt was received supine in bed with HOB elevated. +PIV RUE. +Hemovac. +2L of supplemental O2. Bed alarm was on at start of session. Vital Signs: Asymptomatic throughout this session. UPPER EXTREMITY FUNCTION Hand Dominance: right. Range of Motion: Jimmy UEs are WFL for use during self care tasks. Strength: Jimmy UEs are WFL for use during self care tasks. Skin Integrity Screen: Hemovac to surgical site intact, all other visible skin intact. Endurance: fair. Tone/Spasticity: No relevant impairments. Sensation: Grossly intact. Edema: No edema is present. LOWER EXTREMITY FUNCTION: Jimmy LEs AROM is WFL. Pt's jimmy LEs are able to support their full body weight in standing. Cognitive Screen: Responsiveness: Lethargic. Orientation: The patient is oriented to person, place and time. Following Commands: The patient is able to follow 3+ step commands Memory: Normal. Communications: Pt is able to make their wants and needs known. Executive Function: All higher level skills intact. . Attention: Normal. Cognitive Test Score: Not tested. Vision Screen: No apparent functional visual impairment. Perception: Perception was within normal limits with today's examination. Functional Mobility: Pt is modified independent in bed mobility utilizing bed rails to position trunk upright during supine to/from sit. Modified independent for sit to stand transfers and ambulation utilizing a rolling walker. Fine Motor Coordination: Upper extremity fine motor coordination is grossly intact. Gross Motor Coordination: Upper extremity gross motor coordination is intact. Balance: Dynamic balance in a standing position: good with use of rolling walker. Activities of Daily Living: Feeding: Independent. Observed patient during task. Grooming: Independent. Observed patient during task. Bathing - Upper Body: Modified Independent. Observed patient during task. Simulated task this session from a seated position. Bathing - Lower Body: Modified independent. Observed patient during task. Simulated task this session from a seated position. Upper Body Dressing: Modified Independent. Observed patient during task. Simulated task this session from a seated position. Lower Body Dressing: Modified Independent. Observed patient during task. Simulated task this session from a seated position. Toileting: Modified Independent. Observed patient during task. Simulated task this session. Toilet Transfer: Modified Independent. Observed patient during task. Simulated task this session utilized a rolling walker for transfers. [facility] Daily Activity Inpatient Short Form: Putting on and taking off regular lower body clothing: No assistance (4) Bathing (including washing, rinsing, and drying): No assistance (4) Toileting (including use of toilet, bedpan, or urinal): No assistance (4) Putting on and taking off regular upper body clothing: No assistance (4) Taking care of personal grooming such as brushing teeth: No assistance (4) Eating meals: No assistance (4) Raw Score: 24 Interventions: None provided today. Splinting: No splint issued today. Education: Educational needs: Role of acute OT. Safety and precautions. Adaptive ADL strategies. Energy conservation strategies. Pain management strategies. Proper body mechanics. Plan of care. Barriers to Learning: No barriers. Learning Preference: Auditory. Demonstration. Kinesthetic/tactile. Mode of education provided: Demonstration. Explanation. Audience: Patient. Education Provided: Role of acute OT. Safety and precautions. Adaptive ADL strategies. Energy conservation strategies. Pain management strategies. Proper body mechanics. Plan of care . Response: Verbalized understanding. Applied knowledge. ASSESSMENT Low Complexity Evaluation: An occupational profile and medical and therapy history, which includes a brief history including review of medical and/or therapy records relating to the presenting problem. An assessment(s) that identifies 1-3 peformance deficits (i.e., relating to physical, cognitive, or psychosocial skills) that result in activity limitations and/or participation restrictions. Patient presents with no comorbidities that affect occupational performance. Modification of tasks or assistance (i.e., physical or verbal) with assessment(s) is not necessary to enable completion of evaluation component. Clinical decision-making of low complexity which includes an analysis of the occupational profile, analysis of data from problem-focused assessment(s), and consideration of a limited number of treatment options. Response to Evaluation: The session was tolerated fair, as evidenced by: Pt reports pain unchanged, but does state that she feels like she is moving better than prior to admission. Pt was set up with their lunch tray to eat while sitting at the EOB with their feet flat on the floor. Bed alarm was on at end of session. Call torre was in patient's reach at end of session. Pain: Yes, pain is unchanged from start of today's treatment. Strengths: Social/family support. Goals: Patient's functional goals: "to have less pain" The patient's therapy goals are based on limitations/impairments in the following areas: Baseline level impairments that do not require restorative therapy at this time. Short Term Goals: Not applicable. Baseline level impairments that do not require restorative therapy. [employer] Goals: Not applicable. PLAN Treatment Frequency, Duration and Interventions: Occupational Therapy services are discontinued at this time secondary to: No need for skilled therapy intervention at this time. Equipment Provided: None issued this visit. Equipment Recommended: None. Recommended Occupational Therapy Follow Up: Upon acute care discharge, the following is currently recommended: Home with assist from family as needed and OP OT services. Recommended Consults: None currently. 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 Goal Review Visit Number: 1 Visit Number: Today's visit is number 1 Program: Spine (Therapist may be reached on [employer]) SESSION: Duration: 24 CHARGES: - 0 Units - 0 Units - 0 Units - 0 Units 33460 - CHARGE - OT EVAL; LOW COMPLEXITY 2 Units - ORDER - OCCUPATIONAL THERAPY CONSULT 1 Units - SPINE VISIT 1 Units Total treatment minutes: 24.00 Minutes Electronically Signed by: MILTON Clayton, 10/08/2021 4:37:11 PM * Assessment & Plan Note - Julian Mckeon, PT - 10/08/2021 10:35 AM EST Physical Therapy Acute Care Examination Medical Diagnosis: Infected paraspinal fluid collection, hx lumbar fusion with extension on 07/11/21 10/07/21 s/p Procedure: Open irrigation and debridement with wound exploration History of Present Illness: Per EPIC: "Hesahm John is a 46 y.o. female known to the orthopedic spine service with a history of ALIF L1-L5 and PSIF L1-L5 on 05/31/[address] Mchguh. Patient was doing well postoperatively, but then had recurrence of lower back pain with neurologic symptoms earlier this year, and eventually underwent revision lumbar fusion with extension on 07/11/2021, operative notes not in epic chart. Patient was initially doing well postoperatively, however she began to have recurrence of lower back pain causing her to start using her walker again when ambulating, and recently began to have some systemic symptoms of subjective fevers and chills. Patient contacted the orthopedic spine service for further evaluation and received MRI in the outpatient setting on 10/04/2021. Patient's MRI showed a fluid collection posterior to the lumbar spine between the surgical incision and the implant hardware, and the patient was instructed to report to the [facility] ED for further evaluation. In the ED, imaging and notes were reviewed, and orthopedic spine was consulted for further evaluation and management. ? At this time, patient notes significant lower back pain, with some radiation down the bilateral lower extremities, left greater than right. She notes of associated numbness in the buttock radiating down the posterior aspect of her legs on her lateral foot associated with the pain. She notes that the pain is worsened with activity, and standing, and that she has not found anything that relieves the pain. She notes that she has some associated headaches, body aches, chills, subjective low-grade fevers over the previous days, but denies any nausea, vomiting, abdominal pain, constipation, loss of bowel or bladder, saddle anesthesia, or worsening of her radicular symptoms. She denies any weakness in her bilateral lower extremities, and notes that the previously noted radicular pain and numbness has been minimally improving. Patient denies any additional associated symptoms. ? She has a PMH significant for obesity, cholelithiasis, anxiety, depression, lower back pain, pancreatitis She has a past surgical history significant for cholecystectomy, Achilles tendons repair at [facility] orthopedics, right ankle surgery by Dr. Adkins in [place], lumbar spinal fusion and revision by Dr. Mchugh Family History: non-contibutory" Date of Onset: prior to admission Date of Admission: 10/05/2021 8:23:00 PM Demographics: Age: 46 Gender: Female Past Medical History and Radiographics: Significant rehabilitation considerations: Past Medical History: DiagnosisDate Anxiety? Cholelithiasis? Jotkgmtjnm67/07/2014 Low back pain? Lumbar radiculopathy04/12/2020 Pancreatitis? with Gallbladder problems(2013) ? Past Surgical History: ProcedureLateralityDate ACHILLES TENDON SURGERY?? ANKLE FRACTURE SURGERY?? BILIARY DRAINAGE CATHETER PLACEMENT W/ BILE DUCT TUBE CHANGE? CHOLECYSTECTOMY?? cholecystostomy tube placement?05/2014 FRACTURE SURGERYRight? ankle/ORIG and removal of hardware left achilles?? heel spur removal [place] ANTERIOR COLPORRAPHY RPR CYSTOCELE W/CYSTON/07/31/2016 Procedure: ANTERIOR COLPORRHAPHY, REPAIR, CYSTOCELE W/WO REPAIR, URETHROCELE; Surgeon: Jeronimo Hinson MD; Location: [facility]; Service: Gynecology; Laterality: N/A; [place] LAP,CHOLECYSTECTOMY08/12/2014 Procedure: LAPAROSCOPIC CHOLECYSTECTOMY; Surgeon: Mariajose Leiva MD; Location: OR 5E; Service: General; Laterality: N/A; [place] SLING OPER STRES INCONTINENCE07/31/2016 Procedure: ANTERIOR REPAIR, SLING, CYSTOSCOPY; Surgeon: Jeronimo Hinson MD; Location: OR 5E; Service: Gynecology; Laterality: N/A; SPINE SURGERY?05/31/2020 Lumbar fusion SPINE SURGERY?07/11/2021 lumbar fusion Rehabilitation Precautions/Restrictions: per ortho spine progress note on 10/08/21, "No head of bed restrictions. Patient can be weightbearing as tolerated to bilateral lower extremities with assistance as needed, OOB ad francisco., no need for formal immobilization" Full code Moderate fall risk SUBJECTIVE Mental Status: Orientation:The patient is oriented to person, place and time. Command Following:The patient is able to follow 3+ step commands Prior Functional Level: The patient reported the premorbid level of function was typically independent with all mobility, but for the past 2 weeks has requires use of rolling walker. Doesn't need assistance with mobility or ADLs. Patient hasn't been driving recently. Patient denies falls in the past 6 months. Occupation: Not working Social History: Patient lives alone. . If needed: Family nearby and willing to assist. Parents live nearby and can assist with getting groceries or helping around the house. Patient states they are able bodied and could provide some physical assistance. Home Environment: There are 2 steps to enter the home with Bilateral handrails. There is no ramp to enter the home. Home is a single level. Description of bed and bathroom accessibility: Full bathroom with tub shower, adjustable bed in bedroom . Equipment Owned: Rolling walker. Adjustable bed. Pain: Patient currently complains of pain. Location: Low back . Patient describes pain as Nonspecific. Verbal Scale: Patient reports a pain level of 7 out of 10. Will inform nurse. Will perform therapy only as tolerated. Pain Medication Today: yes. OBJECTIVE General Observation: Patient received supine in bed, +masimo +2L O2 via NC (removed with permission from RN) +hemovac, alert and in NAD. No bed alarm noted at start of session. Range of Motion:WFL AROM in all four extremities Strength:WFL for mobility performed below Skin Integrity Screen: Hemovac to surgical site intact Tone/Spasticity: No relevant impairments. Sensation: Patient endorses tingling sensation throughout R LE, states this has been present since her last surgery. Sensation to light touch intact throughout. Balance: Static balance in a standing position: Able to maintain good standing balance unsupported Dynamic balance in a standing position: Requires use of rolling walker due to back pain to assist with offloading and pain reduction. No significant unsteadiness or loss of balance when ambulating with walker Endurance: Independent and within functional limits. Coordination: Upper and lower extremity gross motor coordination grossly intact. Therapeutic/Functional Activities: Bed Mobility: Patient moves from supine to/from sit with modified independence. Head of bed slightly elevated Transfers: Patient transferred sit to/from stand with independence. Locomotion/Wheelchair: Not assessed. Locomotion/Gait/Ambulation: Patient was modified independent with gait/ambulation for 250 feet . Patient requires the following assistive device(s): Rolling walker. Mild guarding, decreased letty and step length Stairs: Patient was modified independent for 2 steps up/down . Patient used the following equipment: Bilateral Railing. Step-to pattern. Vital Signs: Stable. Oxygen Saturation: 96 % Heart Rate: 97 beats per minute Outcome Measures: [facility] AM-PAC "6 Clicks" Basic Mobility Inpatient Short Form: Turning over in bed: No difficulty (4) Sitting down on and standing up from a chair with arms: No difficulty (4) Moving from lying on back to sitting on the side of the bed: No difficulty (4) Moving to and from a bed to a chair (including a wheelchair): No help (4) Walking in hospital room: No help (4) Climbing 3-5 steps with a railing: No help (4) Raw Score 24 /24. Interventions: None provided today. Education: Educational needs: Importance of activity. Mobility Techniques. Role of Physical Therapy. Safety. Treatment Plan. Barriers to Learning: No barriers. Learning Preference: Auditory. Visual. Mode of education provided: Demonstration. Explanation. Audience: Patient. Education Provided: Importance of activity. Mobility Techniques. Role of Physical Therapy. Safety. Treatment Plan. Response: Applied knowledge. Indicates understanding. Demonstrated skill independently. ASSESSMENT Low Complexity Evaluation: A history with no personal factors and/or comorbidities that impact the plan of care. An examination of body system(s) using standardized tests and measures addressing 1-2 elements from any of the following: body structures and functions, activity limitations, and/or participation restrictions. A clinical presentation with stable and/or uncomplicated characteristics. Clinical decision-making of low complexity using standardized patient assessment instrument and/or measurable assessment of functional outcome. Response to Evaluation: The session was tolerated well. Patient safe and independent with all mobility. Prefers use of rolling walker at this time due to back pain, however patient reports she feels she is able to walk better and perform stairs better than prior to admission. Call torre was in patient's reach at end of session. Pain: Yes, pain is unchanged from start of today's treatment. Other Rehabilitation Considerations: Patient's progress may be impaired by the following potential barriers: No potential barriers to progress. Support Structure: Patient lives alone. Support structure is fair. Family nearby. Strengths: Independent function. Goals: Patient's functional goals: To go home The patient's therapy goals are based on limitations/impairments in the following areas: Baseline level impairments that do not require restorative therapy at this time. Short Term Goals: Not applicable. Baseline level impairments that do not require restorative therapy. Usp Goals: Not applicable. PLAN Treatment Frequency, Duration and Interventions: Physical Therapy services are discontinued at this time secondary to: No need for skilled therapy intervention at this time. Equipment Provided: None issued this visit. Equipment Recommended: None, patient has necessary equipment at home. Recommended Physical Therapy Follow Up: Upon acute care discharge, the following is currently recommended: Home with family assist for IADLs as needed. Outpatient Physical Therapy when cleared by physician to participate. Recommended Consults: Occupational Therapy. Development of Plan of Care: Participants included: Patient. Nurse. Goal Review Visit Number: 1 Visit Number: Today's visit is number 1 Program: Spine (Therapist may be reached on Vocera) SESSION: Duration: 41 CHARGES: - 0 Units - 0 Units - 0 Units - 0 Units [id number] - CHARGE - PT EVAL; LOW COMPLEXITY 3 Units - ORDER - PHYSICAL THERAPY CONSULT 1 Units - SPINE VISIT 1 Units Total treatment minutes: 41.00 Minutes Electronically Signed by: Julian Mckeon PT, DPT, 10/08/2021 10:57:03 AM * Operative Note - Colt Mchugh MD - 10/07/2021 1:29 PM EST Date of Surgery:October 07, 2021 Preoperative Diagnosis: Infected paraspinal fluid collection Postoperative Diagnosis: infected paraspinal fluid collection Procedure: Open irrigation and debridement with wound exploration Surgeon: Colt Mchugh MD Vb Developer: Estimated blood loss: Per anesthesia record Sponge and needle count were correct: Indications for surgery: This is a patient who had undergone a previous lumbar d ecompression and fusion procedure. The patient had an MRI that was completed du e to increasing back pain. The patient's MRI showed a paraspinal fluid collecti on that was either pseudomeningocele or potentially infected seroma. We talked about options of care. Based on the fact that she has elevated markers of infec tion we are more leaning towards this being infection. That being said due to carlo vasquez about pseudomeningocele we had initially discussed having interventional radiology aspirate the area but the on-call interventional radiology attending bolivar martinez we contacted told us that he would not credentialed to do this procedure. Ba sed on trying to balance risk versus benefit we elected to proceed with surgery and discussed this with the patient. We discussed with the patient risks includ e continued infection, hardware issues, malunion, nonunion, medical risks. Risk s of an invalid spinal fluid leak were discussed. Indolent infection were discu ssed. Wound closure risks were discussed. Infection risks to include sepsis ca rdiovascular risks other areas of infection and even were discussed. The patient understood this and agreed to surgery. Operative report in detail:The patient was brought to the operating room the day of surgery. She underwent induction of anesthesia per the anesthesia record. The patient was placed prone on operating room table. Antibiotics had been held Per the infectious disease service recommendations. We made an incision and carried the wound all the way down to the paraspinal reg ion. An area of purulence was identified. It was a substantial area of purulen t material that went all the way down to the thecal sac, the bones, and metal. It seemed to be thin in terms of its nature. It was cultured multiple times. W as then divided the wound was then debrided down to bone. The area was irrigat ed with 6 L of normal saline There was no sign of spinal fluid leak and deep drain was placed and the wound w as closed in layers after antibiotic powder (Vancomycin powder) was placed. I called the number the patient provided me for her mother and left a message i s to say surgery was over at the patient's request. This was the number that was provided [phone] * Brief Op Note - Serenity Diallo MD - 10/07/2021 12:16 PM EST Brief Procedure/Operative Note Date of operation/procedure: 10/07/2021 Surgical Lo Pre-Op Diagnosis: Post-op infected fluid collection Post-Op Diagnosis: Post-op infected fluid collection Procedure(s): THORACIC/LUMBAR SPINE DEBRIDEMENT; SKIN, SUBQ TISSUE, MUSCLE, & BONE Surgeon(s): MD Serenity Dumont MD Primary: Colt Mchugh MD Resident - Assisting: Serenity Diallo MD Anesthesia Type: General Anesthesiologist: KIMBERLYN Forbes Beader: Rashel Marshall MD Procedure Start and End Times: For time of surgery refer to operative nursing te mplate. Est. Blood loss: 100 cc Blood Administered: none Fluids Given: crystalloids Grafts / Implants: * No implants in log * Specimens Removed: Order Name Source Comment Collection Info Order Time WOUND CULTURE Specimen name: Paraspinal fluid (There are 4 tubes, all are the s dewey specimen). Wound culture, aerobic, anaerobic, culture & sensitivity, acid fast bacteria, gram stain, fungal 10/07/2021 11:58 AM Specimen Type Pus Comments: No spinal fluid leak found, sebastian pus found - Return to floor - Diet: Resume prior diet - Activity: OOB adlib - Evaluation by Physical Therapy - Continued antibiotics - Drain to self suction Complications: None Noted Cancer staging: N/A * Plan of Care - Lily Cazares RN - 10/07/2021 9:59 AM EST Problem: Risk for Falls Goal: No falls during hospitalization Description: Patient will not fall during hospitalization. Outcome: Progressing Problem: Knowledge Deficit Goal: Knowledge - personal safety Description: Patient will verbalize understanding of fall prevention. Outcome: Progressing Problem: INJURY, RISK FOR Goal: Patient will not be injured from a fall during hospitalization Outcome: Progressing Problem: Knowledge Deficit Goal: Patient requires education regarding causes of high risk injury from a fal l Outcome: Progressing Goal: Patient's family requires education regarding causes of high risk injury f rom a fall Outcome: Progressing documented in this encounter Plan of Treatment Care Team Description Date Type Specialty Yuri Norris, [employer] [address] [place] [address] [email or web address] 10/22/2021 Office Visit Orthopedic Surgery Date/Time Name Type Priority Associated Diag noses 10/07/2021 11:30 AM EST Anaerobic culture ; Microbiology Routine 10/07/2021 11:30 AM EST Fungus culture Microbiology Routine 10/07/2021 11:30 AM EST AFB culture; Microbiology Routine 10/07/2021 11:30 AM EST Anaerobic culture ; Microbiology Routine 10/07/2021 11:30 AM EST Fungus culture Microbiology Routine 10/07/2021 11:30 AM EST AFB culture; Microbiology Routine 10/07/2021 11:30 AM EST Anaerobic culture ; Microbiology Routine 10/07/2021 11:30 AM EST Fungus culture Microbiology Routine 10/07/2021 11:30 AM EST AFB culture; Microbiology Routine 10/07/2021 11:30 AM EST Anaerobic culture ; Microbiology Routine 10/07/2021 11:30 AM EST Fungus culture Microbiology Routine 10/07/2021 11:30 AM EST AFB culture; Microbiology Routine 10/08/2021 3:19 PM EST Blood culture ; Microbiology Routine Peripheral 10/09/2021 8:55 AM EST Blood culture ; Microbiology Routine Peripheral 10/09/2021 8:55 AM EST Blood culture ; Microbiology Routine Peripheral Order Schedule Name Type Priority Associated Diag noses Continuous for 30 days for 30 Days start ing 10/05/2021 until 11/04/2021 Oxygen Orders: Nasal Respiratory Routine Cannula; Liters per Care minute: 2 LPM; D/C Oxygen 48hrs After Being on Room Air: Yes; Wean/Titrate O2 to Keep Sats =>: 92 Once for 1 Occurrences starting 10/07/20 21 until 10/07/2021 Wound culture Microbiology Routine AM Draw for 3 Days starting 10/10/2021 u ntil 10/12/2021, 1 completed CBC and Differential Lab Routine Order Schedule Name Type Priority Associated Diag noses Ordered: 10/11/2021 Referral to home health Outpatient Routine Postop erative infection, Referral unspecified type, initial encounter Health Maintenance Due Date Last Done Comments MMR Vaccines (1 of - 1977 Standard series) Varicella Vaccines (1 of 1977 2 - 2-dose childhood series) DTaP,Tdap,and Td Vaccines 1983 (1 - Tdap) HIV Screening 1989 Cervical Cancer Screening 1997 5 years Influenza Vaccine 08/24/2021 01/24/2020, 10/02/2016 COVID-19 Vaccine Completed 03/23/2021, 02/23/2021, 02/02/2021, Additional history exists HIB Vaccines Aged Out No longer eligible based on patient's age to complete this topic Hepatitis A Vaccines Aged Out No longer eligibl e based on patient's age to complete this topic Hepatitis B Vaccines Aged Out No longer eligibl e based on patient's age to complete this topic IPV Vaccines Aged Out No longer eligible based on patient's age to complete this topic Pneumococcal Vaccine: Aged Out No longer eligib le based on patient's age to Pediatrics (0 to 5 Years) complete this topic and At-Risk Patients (6 to 64 Years) documented as of this encounter Implants Device Identifier Shelf Expiration Date Model / Serial / L ot Implanted Type Area Manufactur er 12/01/2016 [id number] / / [id number] Reva - Resolve - 8 Fr - [id number] Right: Abdomen MERIT Implanted: Qty: 1 on 05/31/2014 by Magdaleno Sebastian MD at [facility] INTERVENTIONAL RADIOLOGY 04/23/2017 [id number] / / [id number]-Ult-8.7-58-58-[id number]-Fueu-Hccam N/A: Abdomen INSURANCE POLICY ISSUE [employer] Loc.. - [id number] Implanted: Qty: 1 on 06/28/2014 by Magdaleno Nolan MD at [facility] 04/23/2017 [id number] / / [id number] Tvt Retropubic Device Exact - N/A: Urethra GYNECAR E, [id number]. Implanted: Qty: 1 on 07/31/2016 by Jeronimo Hinson MD at [facility] documented as of this encounter Procedures Comments Procedure Name Priority Date/Time Associated Diag nosis BASIC METABOLIC PANEL Routine 10/11/2021 10:22 AM EST CBC AND DIFFERENTIAL Routine 10/11/2021 4:30 AM EST ECHOCARDIOGRAM 2D Routine 10/10/2021 COMPLETE 1:57 PM EST SEDIMENTATION RATE, Routine 10/10/2021 AUTOMATED 8:05 AM EST CBC AND DIFFERENTIAL Routine 10/10/2021 8:05 AM EST INFLAMMATORY C-REACTIVE Routine 10/10/2021 PROTEIN (CRP) 8:05 AM EST BASIC METABOLIC PANEL Routine 10/10/2021 8:05 AM EST BLOOD CULTURE Routine 10/09/2021 8:55 AM EST BLOOD CULTURE Routine 10/09/2021 8:55 AM EST BLOOD CULTURE Routine 10/08/2021 3:19 PM EST CBC STAT 10/08/2021 6:40 AM EST BASIC METABOLIC PANEL STAT 10/08/2021 6:40 AM EST CBC STAT 10/07/2021 8:26 PM EST AFB CULTURE Routine 10/07/2021 11:30 AM EST AFB CULTURE Routine 10/07/2021 11:30 AM EST AFB CULTURE Routine 10/07/2021 11:30 AM EST AFB CULTURE Routine 10/07/2021 11:30 AM EST WOUND CULTURE Routine 10/07/2021 11:30 AM EST WOUND CULTURE Routine 10/07/2021 11:30 AM EST WOUND CULTURE Routine 10/07/2021 11:30 AM EST WOUND CULTURE Routine 10/07/2021 11:30 AM EST FUNGUS CULTURE Routine 10/07/2021 11:30 AM EST FUNGUS CULTURE Routine 10/07/2021 11:30 AM EST FUNGUS CULTURE Routine 10/07/2021 11:30 AM EST FUNGUS CULTURE Routine 10/07/2021 11:30 AM EST ANAEROBIC CULTURE Routine 10/07/2021 11:30 AM EST ANAEROBIC CULTURE Routine 10/07/2021 11:30 AM EST ANAEROBIC CULTURE Routine 10/07/2021 11:30 AM EST ANAEROBIC CULTURE Routine 10/07/2021 11:30 AM EST DEBRIDEMENT; SKIN, SUBQ 10/07/2021 Post-op infec silvina fluid TISSUE, MUSCLE, & BONE 10:31 AM EST collection CBC STAT 10/07/2021 6:15 AM EST BASIC METABOLIC PANEL STAT 10/07/2021 6:15 AM EST STAPH AUREUS MRSA PCR Routine 10/06/2021 3:47 PM EST BLOOD CULTURE Routine 10/06/2021 8:07 AM EST BLOOD CULTURE Routine 10/06/2021 8:07 AM EST EKG ED PHYSICIAN Routine 10/05/2021 INTERPRETATION 10:53 PM EST EKG 12-LEAD - CMAXX 10/05/2021 REPORT 10:49 PM EST EKG 12-LEAD - CMAXX 10/05/2021 REPORT 10:49 PM EST EKG 12-LEAD STAT 10/05/2021 10:49 PM EST RESPIRATORY PATHOGEN Routine 10/05/2021 PANEL 10:44 PM EST COVID-19 PCR Routine 10/05/2021 10:44 PM EST PROTIME INR STAT 10/05/2021 10:44 PM EST TYPE AND SCREEN STAT 10/05/2021 10:44 PM EST XR CHEST FRONTAL ONLY STAT 10/05/2021 [id number] 10:27 PM EST SEDIMENTATION RATE, Routine 10/05/2021 AUTOMATED 9:26 PM EST CBC AND DIFFERENTIAL Routine 10/05/2021 9:26 PM EST INFLAMMATORY C-REACTIVE Routine 10/05/2021 PROTEIN (CRP) 9:26 PM EST COMPREHENSIVE METABOLIC STAT 10/05/2021 PANEL 9:26 PM EST documented in this encounter Results * Basic Metabolic Panel (10/11/2021 10:22 AM EST) Bicarbonate 29 22 - 29 mmol/L [facility]ology Chloride 99 98 - 107 mmol/L [facility] Creatinine 0.50 0.50 - 0.90 mg/dL [facility] Glucose 107 70 - 140 mg/dL [facility] Potassium 2.9 (LL)Comment: Results 3.4 - 5.1 mmol/L [facility] called to and read back by [facility] GERI LEDESMA RN [phone] BY Pathology 3200 Sodium 139 136 - 145 mmol/L [facility] Blood Urea 3 (L) 6 - 20 mg/dL [facility] Nitrogen [facility] Anion Gap 11 8 - 15 mmol/L [facility]ology Osmolality, Whit 285 275 - 300 mosm/kg [facility]ology BUN/Cre Ratio 6 [facility]ology Calcium 8.5 (L) 8.6 - 10.0 mg/dL [facility] Pathology GFR Non >90 >60 mL/min/1.73m2 [facility] e Mal[place] 2008 [facility] CDK-EPI Pathology GFR >90 >60 mL/min/1.73m2 [facility] [place] 2008 [facility] CKD-EPI Pathology Specimen Plasma Performing Organization Address City/State/ZIP Code P ivory Number [facility] [address] [place], [place] [address] PATHOLOGY [facility] [address], [place] [address] Clin Pathology * CBC and Differential (10/11/2021 4:30 AM EST) White Blood 7.2 4 - 10 10*3/uL [facility] Cell [facility]ology Red Blood Cell 3.21 (L) 4.1 - 5.3 10*6/uL [facility] Pathology Hemoglobin 8.0 (L) 11.5 - 15.5 g/dL [facility] Pathology Hematocrit 24.7 (L) 36 - 45 % [facility] Pathology Mean Cell 76.8 (L) 80 - 96 fL [facility] Volume [facility] Pathology Mean Cell 24.9 (L) 27 - 33 pg [facility] Hemoglobin [facility] Pathology Mean Cell Hgb 32.4 32.0 - 36.0 g/dL [facility] Conc [facility] Pathology Red Cell Dist 21.2 (H) 11.5 - 14.5 % [facility] Width [facility] Pathology Platelet Count 361 150 - 400 10*3/uL [facility] Pathology Differential Automated Diff [facility] Type [facility] Pathology Neutrophil 67 % [facility]ology Lymphocyte 19 % [facility] Monocyte 9 % [facility] Clin Pathology Eosinophil 4 % [facility] Pathology Basophil 1 % [facility] Pathology Abs Neutrophil 4.86 1.8 - 7.0 10*3/uL [facility] Pathology Abs Lymphocyte 1.35 1.2 - 4.0 10*3/uL [facility] Pathology Abs Monocyte 0.63 0 - 0.8 10*3/uL [facility] Pathology Abs Eosinophil 0.28 0 - 0.5 10*3/uL [facility] Pathology Abs Basophil 0.06 0 - 0.2 10*3/uL [facility] Pathology Nucleated Red 0 0 - 0 /100{WBCs} [facility] Blood Cells [facility] Pathology Specimen EDTA Whole Blood Performing Organization Address City/State/ZIP Code P ivory Number [facility] [address], [place] [address] PATHOLOGY [facility] [address] [place], [place] [address] Clin Pathology * Echocardiogram 2D complete (10/10/2021 1:57 PM EST) Specimen Narrative [facility] ECHO - 10/10/2021 3:57 PM EST . [facility] Echo/Stress Lab [address] [place] [address] Echocardiography Examination Transthoracic Name: HESHAM JOHN MR#: [id number] Admission Number: [id number] Study Date: 10/10/2021 Study Time: 01:57 PM Date Of : 1975 Age: 46 years Height: 65 in. (165.1 cm) Weight: 270 lbs. (122.47 kg) BSA: 2.25 m2 Gender: Female Blood Pressure: 120 mmHg / 63 mmHg Heart Rate: 80 bpm Rhythm: Normal sinus rhythm Procedure Staff Reading Physician: SHAGGY VALENTINE MD Wood Floor Refinisher: Lashanda Resendiz Ordering Physician: NETTA RODRIGUEZ Admitting Physician: COLT MCHUGH Indications Reason for Order->Other; Description->Evaluate for endocarditis in setting of bacteremia Exam Details Procedure Ordered: ECHOCARDIOGRAM 2D COMPLETE Image Quality: Adequate Conclusions Left Ventricle: Left ventricle is normal in size. Normal global systolic left ventricular function. Left Ventricular Measurements LVEF, BP: 60 %. Mitral Valve: Mitral valve appears structurally normal. Trivial mitral regurgitation. Aortic Valve: The aortic valve is trileaflet. Tricuspid Valve: The tricuspid valve appears structurally normal. Patient: HESHAM JOHN Study Date: 10/10/2021 01:57 PM Trivial tricuspid regurgitation. Previous Study Comparison Overview: No previous studies available for comparison Findings Left Ventricle: Left ventricle is normal in size. No left ventricular hypertrophy. Normal global systolic left ventricular function. Left Ventricular Measurements LVEF, BP: 60 %. Right Ventricle: Right ventricle is normal in size . Right ventricular systolic function is normal. Left Atrium: The left atrium size by volume measurement is normal (16-34 ml/m2) . Left Atrium Measurements LAESV index, BP: 16.9 ml/m. Right Atrium: The right atrium size by volume measurement is normal. Right Atrium Measurements RA Vol Index: 7.1 ml/m. Mitral Valve: Mitral valve appears structurally normal. Trivial mitral regurgitation. Aortic Valve: The aortic valve is trileaflet. Tricuspid Valve: The tricuspid valve appears structurally normal. Trivial tricuspid regurgitation. Pulmonic Valve: The pulmonic valve appears grossly normal. Aorta: The aortic root measures 3.3 cm. The ascending aorta measures 2.9 cm. Aorta Measurements Ao Sinus Valsalva: 3.3 cm. Pericardium: No pericardial effusion. Measurements Anatomy Label Value Normal Value Aorta AoAsc 2.9 cm Aorta Ao Sinus Valsalva 3.3 cm Aortic Valve AV PGmean 3.48 mmHg Aortic Valve WAYLON D (continuity eq. Vmax) 2.8 cm Aortic Valve AV Vmax 1.26 m/s Interventricular septum IVSd, 2D 1 cm (0.6cm - 0.9cm) Left Atrium LADs, 2D 3.8 cm (2.7cm - 3.8cm) Left Atrium LAESV index, BP 16.9 ml/m Left Ventricle LVOTd 2.1 cm (1.8cm - 2cm) Left Ventricle LVDd, 2D 5.0 cm (3.8cm - 5.2cm) Left Ventricle LVDs, 2D 3.2 cm (2.2cm - 3.5cm) Left Ventricle LVPWd, 2D 0.9 cm (0.6cm - 0.9cm) Left Ventricle LVEF, BP 60 % (54% - 74%) Patient: HESHAM JOHN Study Date: 10/10/2021 01:57 PM Left Ventricle LV Mass Index, 2D ASE 74.8 g/m (43g/m - 95g/m) Left Ventricle LVRWT, 2D 0.36 Left Ventricle LVESV, 2D 42 ml Left Ventricle Diastolic MV E/A 1.56 Function Left Ventricle Diastolic MV E/E' lateral 8.84 Function Left Ventricle Diastolic MV E/E' septal 10.27 (2.4 - 2.4) Function Left Ventricle Diastolic MV E' septal 0.09 m/s Function Left Ventricle Diastolic MV E' lateral 0.11 m/s Function Left Ventricle Diastolic MV E/E' mean 9.50 Function Left Ventricle Diastolic MV E' mean 0.10 m/s Function Mitral Valve MV PHT 0.040 s Mitral Valve MVA PHT 5.6 cm Right Atrium RA Vol Index 7.1 ml/m Right Ventricle TAPSE, MM 2.3 cm (1.7cm - 99.9cm) Patient: HESHAM JOHN Study Date: 10/10/2021 01:57 PM Procedure Note Shaggy Valentine MD - 10/10/2021 . [facility] Echo/Stress Lab [address] [place] [address] Echocardiography Examination Transthoracic Name: HESHAM JOHN MR#: [id number] Admission Number: [id number] Study Date: 10/10/2021 Study Time: 01:57 PM Date Of : 1975 Age: 46 years Height: 65 in. (165.1 cm) Weight: 270 lbs. (122.47 kg) BSA: 2.25 m2 Gender: Female Blood Pressure: 120 mmHg / 63 mmHg Heart Rate: 80 bpm Rhythm: Normal sinus rhythm Procedure Staff Reading Physician: SHAGGY VALENTINE MD Wood Floor Refinisher: Lashanda Resendiz Ordering Physician: NETTA RODRIGUEZ Admitting Physician: COLT MCHUGH Indications Reason for Order->Other; Description->Evaluate for endocarditis in setting of bacteremia Exam Details Procedure Ordered: ECHOCARDIOGRAM 2D COMPLETE Image Quality: Adequate Conclusions Left Ventricle: Left ventricle is normal in size. Normal global systolic left ventricular function. Left Ventricular Measurements LVEF, BP: 60 %. Mitral Valve: Mitral valve appears structurally normal. Trivial mitral regurgitation. Aortic Valve: The aortic valve is trileaflet. Tricuspid Valve: The tricuspid valve appears structurally normal. Patient: HESHAM JOHN Study Date: 10/10/2021 01:57 PM Trivial tricuspid regurgitation. Previous Study Comparison Overview: No previous studies available for comparison Findings Left Ventricle: Left ventricle is normal in size. No left ventricular hypertrophy. Normal global systolic left ventricular function. Left Ventricular Measurements LVEF, BP: 60 %. Right Ventricle: Right ventricle is normal in size . Right ventricular systolic function is normal. Left Atrium: The left atrium size by volume measurement is normal (16-34 ml/m2) . Left Atrium Measurements LAESV index, BP: 16.9 ml/m. Right Atrium: The right atrium size by volume measurement is normal. Right Atrium Measurements RA Vol Index: 7.1 ml/m. Mitral Valve: Mitral valve appears structurally normal. Trivial mitral regurgitation. Aortic Valve: The aortic valve is trileaflet. Tricuspid Valve: The tricuspid valve appears structurally normal. Trivial tricuspid regurgitation. Pulmonic Valve: The pulmonic valve appears grossly normal. Aorta: The aortic root measures 3.3 cm. The ascending aorta measures 2.9 cm. Aorta Measurements Ao Sinus Valsalva: 3.3 cm. Pericardium: No pericardial effusion. Measurements Anatomy Label Value Normal Value Aorta AoAsc 2.9 cm Aorta Ao Sinus Valsalva 3.3 cm Aortic Valve AV PGmean 3.48 mmHg Aortic Valve WAYLON D (continuity eq. Vmax) 2.8 cm Aortic Valve AV Vmax 1.26 m/s Interventricular septum IVSd, 2D 1 cm (0.6cm - 0.9cm) Left Atrium LADs, 2D 3.8 cm (2.7cm - 3.8cm) Left Atrium LAESV index, BP 16.9 ml/m Left Ventricle LVOTd 2.1 cm (1.8cm - 2cm) Left Ventricle LVDd, 2D 5.0 cm (3.8cm - 5.2cm) Left Ventricle LVDs, 2D 3.2 cm (2.2cm - 3.5cm) Left Ventricle LVPWd, 2D 0.9 cm (0.6cm - 0.9cm) Left Ventricle LVEF, BP 60 % (54% - 74%) Patient: HESHAM JOHN Study Date: 10/10/2021 01:57 PM Left Ventricle LV Mass Index, 2D ASE 74.8 g/m (43g/m - 95g/m) Left Ventricle LVRWT, 2D 0.36 Left Ventricle LVESV, 2D 42 ml Left Ventricle Diastolic MV E/A 1.56 Function Left Ventricle Diastolic MV E/E' lateral 8.84 Function Left Ventricle Diastolic MV E/E' septal 10.27 (2.4 - 2.4) Function Left Ventricle Diastolic MV E' septal 0.09 m/s Function Left Ventricle Diastolic MV E' lateral 0.11 m/s Function Left Ventricle Diastolic MV E/E' mean 9.50 Function Left Ventricle Diastolic MV E' mean 0.10 m/s Function Mitral Valve MV PHT 0.040 s Mitral Valve MVA PHT 5.6 cm Right Atrium RA Vol Index 7.1 ml/m Right Ventricle TAPSE, MM 2.3 cm (1.7cm - 99.9cm) Patient: HESHAM JOHN Study Date: 10/10/2021 01:57 PM Performing Organization Address City/State/ZIP Code P ivory Number [facility] ECHO * CBC and Differential (10/10/2021 8:05 AM EST) White Blood 8.4 4 - 10 10*3/uL [facility] Clin Pathology Red Blood Cell 3.30 (L) 4.1 - 5.3 10*6/uL [facility] Clin Pathology Hemoglobin 8.0 (L) 11.5 - 15.5 g/dL [facility] Clin Pathology Hematocrit 25.2 (L) 36 - 45 % [facility] Clin Pathology Mean Cell 76.3 (L) 80 - 96 fL [facility] Volume [facility] Clin Pathology Mean Cell 24.4 (L) 27 - 33 pg [facility] Clin Pathology Mean Cell Hgb 31.9 (L) 32.0 - 36.0 g/dL [facility] Univ Clin Pathology Red Cell Dist 21.4 (H) 11.5 - 14.5 % [facility] Width [facility] Clin Pathology Platelet Count 413 (H) 150 - 400 10*3/uL [facility] Clin Pathology Differential Automated Diff [facility] Type [facility] Clin Pathology Neutrophil 75 % [facility] Clin Pathology Lymphocyte 14 % [facility] Clin Pathology Monocyte 7 % [facility] Clin Pathology Eosinophil 3 % [facility] Clin Pathology Basophil 1 % [facility] Clin Pathology Abs Neutrophil 6.42 1.8 - 7.0 10*3/uL [facility] Clin Pathology Abs Lymphocyte 1.16 (L) 1.2 - 4.0 10*3/uL [facility] Clin Pathology Abs Monocyte 0.55 0 - 0.8 10*3/uL [facility] Clin Pathology Abs Eosinophil 0.27 0 - 0.5 10*3/uL [facility] Clin Pathology Abs Basophil 0.05 0 - 0.2 10*3/uL [facility] Clin Pathology Nucleated Red 0 0 - 0 /100{WBCs} [facility] Blood Cells [facility] Pathology Specimen EDTA Whole Blood Performing Organization Address City/[facility]/ZIP Code P ivory Number [facility] CLINICAL [address] [place], [place] [address] [address] Clin Pathology * Basic Metabolic Panel (10/10/2021 8:05 AM EST) Bicarbonate 25 22 - 29 mmol/L [facility] Clin Pathology Chloride 99 98 - 107 mmol/L [facility] Clin Pathology Creatinine 0.41 (L) 0.50 - 0.90 mg/dL [facility] Clin Pathology Glucose 88 70 - 140 mg/dL [facility] Clin Pathology Potassium 3.1 (L) 3.4 - 5.1 mmol/L [facility] Clin Pathology Sodium 140 136 - 145 mmol/L [facility] Pathology Blood Urea 4 (L) 6 - 20 mg/dL [facility] Clin Pathology Anion Gap 16 (H) 8 - 15 mmol/L [facility] Clin Pathology Osmolality, Whit 285 275 - 300 mosm/kg [facility] Clin Pathology BUN/Cre Ratio 9 [facility] Clin Pathology Calcium 8.6 8.6 - 10.0 mg/dL [facility] Clin Pathology GFR Non >90 >60 mL/min/1.73m2 [facility] 2008 Med [facility] Clin CDK-EPI Pathology GFR >90 >60 mL/min/1.73m2 [facility] 2008 Med [facility] Clin CKD-EPI Pathology Specimen Plasma Performing Organization Address City/[facility]/ZIP Code P ivory Number [facility] [address] [place], [place] [address] [address] Clin Pathology * Inflammatory C-Reactive Protein (CRP) (10/10/2021 8:05 AM EST) C Reactive 129.0 (H) <8.0 mg/L [facility] Clin Pathology Specimen Plasma Performing Organization Address City/[facility] P ivory Number [facility] [address] [place], [place] [address] [address] Clin Pathology * Sedimentation rate, automated (10/10/2021 8:05 AM EST) Sed Rate - ESR 92 (H) <20 mm/hr [facility] Clin Pathology Specimen EDTA Whole Blood Performing Organization Address [facility] P ivory Number [address] [address] Clin Pathology * Basic Metabolic Panel (10/08/2021 6:40 AM EST) Pathologist [facility] Bicarbonate 24 22 - 29 mmol/L [facility] Clin Pathology Chloride 99 98 - 107 mmol/L [facility] Clin Pathology Creatinine 0.38 (L) 0.50 - 0.90 mg/dL [facility] Clin Pathology Glucose 92 70 - 140 mg/dL [facility] Clin Pathology Potassium 3.6 3.4 - 5.1 mmol/L [facility] Clin Pathology Sodium 135 (L) 136 - 145 mmol/L [facility] Clin Pathology Blood Urea 4 (L) 6 - 20 mg/dL [facility] Univ Clin Pathology Anion Gap 12 8 - 15 mmol/L [facility] Clin Pathology Osmolality, Whit 277 275 - 300 mosm/kg [facility] Clin Pathology BUN/Cre Ratio 11 [facility] Clin Pathology Calcium 8.3 (L) 8.6 - 10.0 mg/dL [facility] Clin Pathology GFR Non >90 >60 mL/min/1.73m2 [facility] 2008 Med Univ Clin CDK-EPI Pathology GFR >90 >60 mL/min/1.73m2 [facility] 2008 Med Univ Clin CKD-EPI Pathology Specimen Plasma Performing Organization Address City/[facility] P ivory Number [address], [place] [address] PATHOLOGY [facility] [address] [place], [place] [address] Clin Pathology * CBC (10/08/2021 6:40 AM EST) White Blood 9.7 4 - 10 10*3/uL [facility] Clin Pathology Red Blood Cell 3.41 (L) 4.1 - 5.3 10*6/uL [facility] Clin Pathology Hemoglobin 8.4 (L) 11.5 - 15.5 g/dL [facility] Clin Pathology Hematocrit 26.7 (L) 36 - 45 % [facility] Clin Pathology Mean Cell 78.3 (L) 80 - 96 fL [facility] Volume Med Univ Clin Pathology Mean Cell 24.5 (L) 27 - 33 pg [facility] Hemoglobin Med Univ Clin Pathology Mean Cell Hgb 31.2 (L) 32.0 - 36.0 g/dL [facility] Univ Clin Pathology Red Cell Dist 21.0 (H) 11.5 - 14.5 % [facility] Univ Clin Pathology Platelet Count 416 (H) 150 - 400 10*3/uL [facility] Clin Pathology Specimen EDTA Whole Blood Performing Organization Address City/State/ZIP Code P ivory Number [facility] [address] [place], [place] [address] [address] Clin Pathology * CBC (10/07/2021 8:26 PM EST) White Blood 11.4 (H) 4 - 10 10*3/uL [facility] Clin Pathology Red Blood Cell 3.15 (L) 4.1 - 5.3 10*6/uL [facility] Clin Pathology Hemoglobin 7.9 (L) 11.5 - 15.5 g/dL [facility] Clin Pathology Hematocrit 24.6 (L) 36 - 45 % [facility] Clin Pathology Mean Cell 78.0 (L) 80 - 96 fL [facility] Volume [facility] Clin Pathology Mean Cell 25.0 (L) 27 - 33 pg [facility] Hemoglobin Med Univ Clin Pathology Mean Cell Hgb 32.0 32.0 - 36.0 g/dL [facility] Clin Pathology Red Cell Dist 21.2 (H) 11.5 - 14.5 % [facility] Clin Pathology Platelet Count 412 (H) 150 - 400 10*3/uL [facility] Pathology Specimen EDTA Whole Blood Performing Organization Address City/State/ZIP Code P ivory Number [facility] [address] [place], [place] [address] [address] Clin Pathology * Wound culture (10/07/2021 11:30 AM EST) Special Request PARASPINAL FLUID 4 [facility] Pathology Gram Stain 2+ WBC'S Seen. (A) [facility] Pathology Gram Stain GRAM-POSITIVE COCCUS (A) [facility] Pathology Culture/Results STAPHYLOCOCCUS AUREUS (A) [facility] Pathology Culture/Results Refer to culture [facility] [id number] received 10/07/21 13:01 [facility] for susceptibility results. Pathology Specimen Swab Performing Organization Address [facility] P ivory Number [facility] [address] [place], [place] [address] [address] Clin Pathology * Wound culture (10/07/2021 11:30 AM EST) Special Request PARASPINAL FLUID 3 [facility] Pathology Gram Stain 3+ WBC'S Seen. (A) [facility] Pathology Gram Stain No organisms seen [facility] Pathology Culture/Results STAPHYLOCOCCUS AUREUS (A) [facility] Pathology Specimen Swab Antibiotic Method Susceptibility Organism Cefazolin SELECT RATNA RESULTS REPORTED. Sensitive Staphylococcus aureus Erythromycin SELECT RATNA RESULTS REPORTED. <=0.25: Sensitive Staphylococcus aureus Clindamycin SELECT RATNA RESULTS REPORTED. 0.25: Sensitive Staphylococcus aureus Oxacillin SELECT RATNA RESULTS REPORTED. <=0.25: Sensitive Staphylococcus aureus Trimethoprim + Sulfamethoxazole SELECT RATNA RESULTS REPORTED. <=0.5/9.5: Sensitive Staphylococcus aureus Vancomycin SELECT RATNA RESULTS REPORTED. 1: Sensitive Staphylococcus aureus Performing Organization Address City/[facility]/ZIP Code P ivory Number [facility] [address], [place] [address] PATHOLOGY [facility] [address] [place], [place] [address] Clin Pathology * Wound culture (10/07/2021 11:30 AM EST) Special Request PARASPINAL FLUID 2 [facility] Clin Pathology Gram Stain 3+ WBC'S Seen. (A) [facility] Clin Pathology Gram Stain GRAM-POSITIVE COCCUS (A) [facility] Clin Pathology Culture/Results STAPHYLOCOCCUS AUREUS (A) [facility] Pathology Specimen Swab Antibiotic Method Susceptibility Organism Cefazolin SELECT RATNA RESULTS REPORTED. Sensitive Staphylococcus aureus Erythromycin SELECT RATNA RESULTS REPORTED. <=0.25: Sensitive Staphylococcus aureus Clindamycin SELECT RATNA RESULTS REPORTED. 0.25: Sensitive Staphylococcus aureus Oxacillin SELECT RATNA RESULTS REPORTED. <=0.25: Sensitive Staphylococcus aureus Trimethoprim + Sulfamethoxazole SELECT RATNA RESULTS REPORTED. <=0.5/9.5: Sensitive Staphylococcus aureus Vancomycin SELECT RATNA RESULTS REPORTED. 1: Sensitive Staphylococcus aureus Performing Organization Address City/State/ZIP Code P ivory Number [facility] [address] [place], [place] [address] [address] Clin Pathology * Wound culture (10/07/2021 11:30 AM EST) Special Request PARASPINAL FLUID 1 [facility] Pathology Gram Stain 3+ WBC'S Seen. (A) [facility] Clin Pathology Gram Stain GRAM-POSITIVE COCCUS (A) [facility] Clin Pathology Culture/Results STAPHYLOCOCCUS AUREUS (A) [facility] Pathology Culture/Results (NOTE) [facility] Called to and read back by [facility] Clin Nicole Cazares RN on 7A Pathology 10/08/21,11:17am by [facility] Specimen Swab Antibiotic Method Susceptibility Organism Cefazolin SELECT RATNA RESULTS REPORTED. Sensitive Staphylococcus aureus Erythromycin SELECT RATNA RESULTS REPORTED. <=0.25: Sensitive Staphylococcus aureus Clindamycin SELECT RATNA RESULTS REPORTED. 0.25: Sensitive Staphylococcus aureus Oxacillin SELECT RATNA RESULTS REPORTED. <=0.25: Sensitive Staphylococcus aureus Trimethoprim + Sulfamethoxazole SELECT RATNA RESULTS REPORTED. <=0.5/9.5: Sensitive Staphylococcus aureus Vancomycin SELECT RATNA RESULTS REPORTED. 1: Sensitive Staphylococcus aureus Performing Organization Address City/[facility] P ivory Number [facility] [address] [place], [place] [address] [address] Clin Pathology * Basic Metabolic Panel (10/07/2021 6:15 AM EST) Bicarbonate 25 22 - 29 mmol/L [facility] Clin Pathology Chloride 100 98 - 107 mmol/L [facility] Clin Pathology Creatinine 0.45 (L) 0.50 - 0.90 mg/dL [facility] Clin Pathology Glucose 98 70 - 140 mg/dL [facility] Clin Pathology Potassium 3.5 3.4 - 5.1 mmol/L [facility] Clin Pathology Sodium 134 (L) 136 - 145 mmol/L [facility] Clin Pathology Blood Urea 7 6 - 20 mg/dL [facility] Clin Pathology Anion Gap 9 8 - 15 mmol/L [facility] Clin Pathology Osmolality, Whit 275 275 - 300 mosm/kg [facility] Clin Pathology BUN/Cre Ratio 15 [facility] Clin Pathology Calcium 8.6 8.6 - 10.0 mg/dL [facility] Clin Pathology GFR Non >90 >60 mL/min/1.73m2 [facility] 2008 Med [facility] Clin CDK-EPI Pathology GFR >90 >60 mL/min/1.73m2 [facility] 2008 [facility] CKD-EPI Pathology Specimen Plasma Performing Organization Address [facility] Code P ivory Number [facility] [address] [place], [place] [address] [address] Clin Pathology * CBC (10/07/2021 6:15 AM EST) White Blood 11.1 (H) 4 - 10 10*3/uL [facility] Clin Pathology Red Blood Cell 3.67 (L) 4.1 - 5.3 10*6/uL [facility] Clin Pathology Hemoglobin 9.0 (L) 11.5 - 15.5 g/dL [facility] Clin Pathology Hematocrit 28.4 (L) 36 - 45 % [facility] Clin Pathology Mean Cell 77.4 (L) 80 - 96 fL [facility] Volume [facility] Clin Pathology Mean Cell 24.5 (L) 27 - 33 pg [facility] Hemoglobin [facility] Clin Pathology Mean Cell Hgb 31.7 (L) 32.0 - 36.0 g/dL [facility] Conc [facility] Clin Pathology Red Cell Dist 21.5 (H) 11.5 - 14.5 % [facility] Width [facility] Clin Pathology Platelet Count 435 (H) 150 - 400 10*3/uL [facility] Clin Pathology Specimen EDTA Whole Blood Performing Organization Address City/[facility]/ZIP Code P ivory Number [facility] [address] [place] [address] [address] [address] Clin Pathology * Staph Aureus MRSA PCR (10/06/2021 3:47 PM EST) Specimen Nasal Swab [facility] Description CLINICAL PATHOLOGY Methicillin-Nella METHICILLIN SUSCEPTIBLE Polymerase chain SUN [facility] ceptible STAPHYLOCOCCUS AUREUS (A) reaction assay was [facility] Clin Staphylococcus NEGATIVE for Pathology aureus methicillin-SUSCEPTI BLE Staphylococcus aureus. Methicillin-Res Polymerase chain reaction Polymerase chain S [facility] istant assay was NEGATIVE for reaction assay was [facility] Staphylococcus methicillin-RESISTANT NEGATIVE for Patholog y aureus Staphylococcus aureus. methicillin-RES ISTAN T Staphylococcus aureus. Specimen Nasal Swab Performing Organization Address City/[facility] Code P ivory Number [facility] [address] [place] [address] [address] [address] Clin Pathology * Blood culture ; Peripheral (10/06/2021 8:07 AM EST) Special Request R HAND [facility] Clin Pathology Culture/Results NO GROWTH [facility] Clin Pathology Specimen Peripheral Performing Organization Address City/[facility]/ZIP Code P ivory Number [address] [address] Clin Pathology * Blood culture ; Peripheral (10/06/2021 8:07 AM EST) Special Request L HAND [facility] Clin Pathology Culture/Results Smear: Gram positive cocci in [facility] clusters suggestive of [facility] Staphylococcus. Pathology in aerobic and anaerobic broths. (A) Culture/Results Called to and read back by REREShamar MISHRA AT 0149 ON [facility] Clin 10/07/21 BY 3353 Pathology Culture/Results STAPHYLOCOCCUS AUREUS (A) [facility] Pathology Specimen Peripheral Antibiotic Method Susceptibility Organism Cefazolin SELECT RATNA RESULTS REPORTED. Sensitive Staphylococcus aureus Erythromycin SELECT RATNA RESULTS REPORTED. <=0.25: Sensitive Staphylococcus aureus Clindamycin SELECT RATNA RESULTS REPORTED. 0.25: Sensitive Staphylococcus aureus Oxacillin SELECT RATNA RESULTS REPORTED. <=0.25: Sensitive Staphylococcus aureus Trimethoprim + Sulfamethoxazole SELECT RATNA RESULTS REPORTED. <=0.5/9.5: Sensitive Staphylococcus aureus Vancomycin SELECT RATNA RESULTS REPORTED. 1: Sensitive Staphylococcus aureus Performing Organization Address City/[facility] Code P ivory Number [place] [address] [address] Clin Pathology * 1ED EKG Interpretation (10/05/2021 10:53 PM EST) Narrative EXTERNAL NON-INTERFACED LAB - 10/05/2021 10:53 PM EST David Noble MD 10/05/2021 10:53 PM 1ED EKG Interpretation Date/Time: 10/05/2021 10:53 PM Performed by: David Noble MD Authorized by: Colt Mchugh MD ECG reviewed by ED Physician in the absence of a professor of forestry: yes Interpretation: Interpretation: normal Rate: ECG rate assessment: normal Rhythm: Rhythm: sinus rhythm QRS: QRS axis: Normal QRS intervals: Normal Conduction: Conduction: normal ST segments: ST segments: Normal T waves: T waves: normal Performing Organization Address City/State/ZIP Code P ivory Number EXTERNAL NON-INTERFACED LAB * EKG 12-LEAD - CMAXX REPORT (10/05/2021 10:49 PM EST) Narrative * EKG 12-LEAD - CMAXX REPORT (10/05/2021 10:49 PM EST) Narrative * EKG 12 Lead (10/05/2021 10:49 PM EST) Specimen Narrative [facility] EKG - 10/05/2021 10:49 PM EST Ventricular Rate: 90 BPM Atrial Rate: 90 BPM P-R Interval: 142 ms QRS Duration: 106 ms Q-T Interval: 388 ms QTC Calculation(Bazett): 474 ms P [place]: 59 degrees R [place]: 54 degrees T [place]: 40 degrees : SINUS RHYTHM : RSR' OR QR PATTERN IN V1 SUGGESTS RIGHT VENTRICULAR CONDUCTION : DELAY : BORDERLINE : BORDERLINE PROLONGED QTC : NO PREVIOUS ECGS AVAILABLE : Confirmed by Mook Eng ([id number]) on 10/06/2021 8:42:07 AM Procedure Note Mook Eng MD - 10/06/2021 Ventricular Rate: 90 BPM Atrial Rate: 90 BPM P-R Interval: 142 ms QRS Duration: 106 ms Q-T Interval: 388 ms QTC Calculation(Bazett): 474 ms P [place]: 59 degrees R [place]: 54 degrees T [place]: 40 degrees : SINUS RHYTHM : RSR' OR QR PATTERN IN V1 SUGGESTS RIGHT VENTRICULAR CONDUCTION : DELAY : BORDERLINE : BORDERLINE PROLONGED QTC : NO PREVIOUS ECGS AVAILABLE : Confirmed by Mook Eng ([id number]) on 10/06/2021 8:42:07 AM Performing Organization Address City/State/ZIP Code P ivory Number U EKG * Respiratory Pathogen Panel (10/05/2021 10:44 PM EST) Special Request None [facility] Clin Pathology Respiratory PCR PCR Results [facility] Clin Pathology Culture/Results See Labs Tab for 2019 nCoV [facility] Upsta te RT-PCR results Med Univ Clin Pathology Adenovirus Not Detected [facility] Clin Pathology Coronavirus Not Detected [facility] [address] [facility] Clin Pathology Coronavirus Not Detected [facility] HKU1 [facility] Clin Pathology Coronavirus Not Detected [facility] NL63 [facility] Clin Pathology Coronavirus Not Detected [facility] OC43 [facility] Clin Pathology Human Not Detected [facility] Metapneumovirus [facility] Clin Pathology Rhinovirus/ Not Detected [facility] Enterovirus [facility] Clin Pathology Influenza A Not Detected [facility] Clin Pathology Influenza B Not Detected [facility] Clin Pathology Parainfluenza Not Detected [facility] virus 1 Med Univ Clin Pathology Parainfluenza Not Detected [facility] virus 2 Med Univ Clin Pathology Parainfluenza Not Detected [facility] virus 3 Med Univ Clin Pathology Parainfluenza Not Detected [facility] virus 4 Med Univ Clin Pathology RSV Not Detected [facility] Clin Pathology Bordetella Not Detected [facility] pertussis [facility] Clin Pathology Chlamydia Not Detected [facility] pneumoniae [facility] Clin Pathology Mycoplasma Not Detected [facility] pneumoniae Med Univ Clin Pathology Bordetella Not Detected [facility] parapertussis Med [facility] Clin Pathology Specimen Nasopharyngeal Swab Performing Organization Address [facility] P ivory Number [facility] [address], [place] [address] PATHOLOGY [facility] [address], [place] [address] Clin Pathology * COVID-19 PCR (10/05/2021 10:44 PM EST) Specimen Nasopharyngeal Swab [facility] Description CLINICAL PATHOLOGY SARS CoV-2 2019 nCoV Real-Time RT-PCR: 2019 nCoV Real-Nick e [facility] NOT DETECTED RT-PCR: NOT DETECTED Med [facility] Clin Pathology Assay performed Test performed using [employer] [facility] jenkins Respiratory Panel. Med [facility] Clin Pathology First COVID-19 NO [facility] Test? CLINICAL PATHOLOGY Employed in [facility] CLINICAL setting? PATHOLOGY Symptomatic for [facility] COVID-19 as CLINICAL defined by CDC? PATHOLOGY Date of symptom UNKNOWN [facility] onset? CLINICAL ([id number]) PATHOLOGY Hospitalized NO [facility] for COVID-19? CLINICAL PATHOLOGY Admitted to ICU UNKNOWN [facility] for COVID-19? CLINICAL PATHOLOGY Resident in a [facility] CLINICAL (group) care PATHOLOGY setting? ? UNKNOWN [facility] CLINICAL PATHOLOGY Specimen Nasopharyngeal Swab Performing Organization Address [facility] P ivory Number [facility] CLINICAL [address], [place] [address] PATHOLOGY [facility] [address], [place] [address] Clin Pathology * Protime-INR (10/05/2021 10:44 PM EST) PT Patient 15.2 (H) 11.6 - 14.0 s [facility] Clin Pathology Int'l 1.25Comment: Routine intensity RERE U pstate Normalized oral anticoagulation INR is Med Univ Clin Ratio typically 2.0-3.0. Target INR Patholo gy must be clinically individualized. Specimen Plasma Performing Organization Address City/[facility] Code P ivory Number [facility] CLINICAL [address], [place] [address] [address] Clin Pathology * Type and Screen (10/05/2021 10:44 PM EST) ABO/RH(D) A POS [facility] Clin Pathology Gel Antibody NEG [facility] Screen [facility] Clin Pathology Site Performed at [facility] Clin Pathology Blood Bank Blood Type Confirmed [facility] Comment [facility] Clin Pathology Specimen EDTA Whole Blood Performing Organization Address City/[facility]/ZIP Code P ivory Number [facility] [address], [place] [address] [address] Clin Pathology * XR Chest Frontal Only (10/05/2021 10:27 PM EST) Modality Anatomical Region Laterality Computed Radiography Chest Specimen Narrative [facility] - 10/05/2021 10:44 PM EST PROCEDURE INFORMATION: Exam: XR Chest Exam date and time: 10/05/2021 10:19 PM Age: 46 years old Clinical indication: Other: Preop TECHNIQUE: Imaging protocol: XR of the chest. Views: 1 view. COMPARISON: No relevant prior studies available. FINDINGS: Lungs: Unremarkable. No consolidation. Pleural spaces: Unremarkable. No pleural effusion. No pneumothorax. Heart/Mediastinum: Unremarkable. No cardiomegaly. Bones/joints: Unremarkable. IMPRESSION: No acute findings. THIS DOCUMENT HAS BEEN ELECTRONICALLY SIGNED BY MOOK CARRASQUILLO MD Procedure Note Mook Carrasquillo MD - 10/05/2021 PROCEDURE INFORMATION: Exam: XR Chest Exam date and time: 10/05/2021 10:19 PM Age: 46 years old Clinical indication: Other: Preop TECHNIQUE: Imaging protocol: XR of the chest. Views: 1 view. COMPARISON: No relevant prior studies available. FINDINGS: Lungs: Unremarkable. No consolidation. Pleural spaces: Unremarkable. No pleural effusion. No pneumothorax. Heart/Mediastinum: Unremarkable. No cardiomegaly. Bones/joints: Unremarkable. IMPRESSION: No acute findings. THIS DOCUMENT HAS BEEN ELECTRONICALLY SIGNED BY MOOK CARRASQUILLO MD Performing Organization Address City/State/ZIP Code P ivory Number [facility] [address] [place] [address] * Inflammatory C-Reactive Protein (CRP) (10/05/2021 9:26 PM EST) C Reactive 273.0 (H) <8.0 mg/L [facility] Clin Pathology Specimen Plasma Performing Organization Address City/[facility] Code P ivory Number [facility] CLINICAL [address], [place] [address] [address] Clin Pathology * Sedimentation rate, automated (10/05/2021 9:26 PM EST) Sed Rate - ESR 103 (H) <20 mm/hr [facility] Clin Pathology Specimen EDTA Whole Blood Performing Organization Address [facility] P ivory Number [facility] [address], [place] [address] [address] Clin Pathology * Comprehensive Metabolic Panel (10/05/2021 9:26 PM EST) Albumin 3.1 (L) 3.5 - 5.2 g/dL [facility] Clin Pathology Bilirubin, 0.2 <1.2 mg/dL [facility] Univ Clin Pathology Calcium 8.9 8.6 - 10.0 mg/dL [facility] Clin Pathology Chloride 97 (L) 98 - 107 mmol/L [facility] Clin Pathology Creatinine 0.69 0.50 - 0.90 mg/dL [facility] Clin Pathology Glucose 87 70 - 140 mg/dL [facility] Clin Pathology Alkaline 92 35 - 104 U/L [facility] Phosphatase [facility] Univ Clin Pathology Potassium 3.9 3.4 - 5.1 mmol/L [facility] Clin Pathology Total Protein 7.3 6.4 - 8.3 g/dL [facility] Clin Pathology Sodium 138 136 - 145 mmol/L [facility] Clin Pathology AST/SGO 10 <32 U/L [facility] Clin Pathology Blood Urea 10 6 - 20 mg/dL [facility] Univ Clin Pathology Osmolality, Whit 284 275 - 300 mosm/kg [facility] Clin Pathology BUN/Cre Ratio 14 [facility] Clin Pathology Bicarbonate 27 22 - 29 mmol/L [facility] Clin Pathology ALT/SGP 10 <33 U/L [facility] Clin Pathology Anion Gap 14 8 - 15 mmol/L [facility] Clin Pathology GFR Non >90 >60 mL/min/1.73m2 [facility] 2008 Med [facility] Clin CDK-EPI Pathology GFR >90 >60 mL/min/1.73m2 [facility] 2008 Med [facility] Clin CKD-EPI Pathology Specimen Plasma Performing Organization Address City/State/ZIP Code P ivory Number [facility] CLINICAL [address], [place] [address] PATHOLOGY [facility] [address] [place], [place] [address] Clin Pathology * CBC and Differential (10/05/2021 9:26 PM EST) White Blood 12.6 (H) 4 - 10 10*3/uL [facility] Univ Clin Pathology Red Blood Cell 3.88 (L) 4.1 - 5.3 10*6/uL [facility] Clin Pathology Hemoglobin 9.6 (L) 11.5 - 15.5 g/dL [facility] Clin Pathology Hematocrit 30.3 (L) 36 - 45 % [facility] Clin Pathology Mean Cell 78.1 (L) 80 - 96 fL [facility] Volume [facility] Univ Clin Pathology Mean Cell 24.7 (L) 27 - 33 pg [facility] Univ Clin Pathology Mean Cell Hgb 31.6 (L) 32.0 - 36.0 g/dL [facility] Univ Clin Pathology Red Cell Dist 21.4 (H) 11.5 - 14.5 % [facility] Width [facility] Univ Clin Pathology Platelet Count 530 (H) 150 - 400 10*3/uL [facility] Clin Pathology Differential Automated Diff [facility] Type [facility] Univ Clin Pathology Neutrophil 73 % [facility] Univ Clin Pathology Lymphocyte 14 % [facility] Univ Clin Pathology Monocyte 8 % [facility] Univ Clin Pathology Eosinophil 3 % [facility] Clin Pathology Basophil 2 % [facility] Clin Pathology Abs Neutrophil 9.39 (H) 1.8 - 7.0 10*3/uL [facility] Clin Pathology Abs Lymphocyte 1.74 1.2 - 4.0 10*3/uL [facility] Clin Pathology Abs Monocyte 0.96 (H) 0 - 0.8 10*3/uL [facility] Clin Pathology Abs Eosinophil 0.35 0 - 0.5 10*3/uL [facility] Clin Pathology Abs Basophil 0.18 0 - 0.2 10*3/uL [facility] Clin Pathology Nucleated Red 0 0 - 0 /100{WBCs} [facility] Blood Cells [facility] Clin Pathology Specimen EDTA Whole Blood Performing Organization Address City/State/ZIP Code P ivory Number [facility] CLINICAL [address], [place] [address] PATHOLOGY [facility] [address] [place], [place] [address] Clin Pathology documented in this encounter Visit Diagnoses Diagnosis Surgical site infection - Primary Postoperative infection, unspecified ty pe, initial encounter Acute low back pain with bilateral scia osbaldo, unspecified back pain laterality Chills Chills (without fever) Diaphoresis Generalized hyperhidrosis Obesity, unspecified classification, un specified obesity type, unspecified whether serious comorbidity present COVID-19 ruled out Former smoker Personal history of tobacco use, presen ting hazards to health Status post spinal surgery Other postprocedural status Failed back syndrome of lumbar spine Postlaminectomy syndrome, lumbar region Cholecystitis, chronic Chronic cholecystitis Lumbar radiculopathy Thoracic or lumbosacral neuritis or rad iculitis, unspecified Anxiety Anxiety state, unspecified Bipolar disorder Bipolar disorder, unspecified Mixed hyperlipidemia Morbid obesity Recurrent major depression in remission Major depressive disorder, recurrent ep isode, in full remission documented in this encounter Administered Medications Action Date Dose Rate Site Medication Order MAR Action 10/11/2021 11:57 AM EST 650 mg acetaminophen (TYLENOL) tablet 650 mg Given 650 mg, Oral, Every 6 hours Standard (4 times per day), First dose on Fri10/05/21 at 2215, For 30 days, Maximum daily dose of acetaminophen is 3000 mg from all sources in 24 hours. 650 mg Given 10/11/2021 5:49 AM EST 650 mg Given 10/10/2021 11:46 PM EST bisacodyl (DULCOLAX) suppository 10 mg 10 mg, Rectal, Every 72 hours PRN, Constipation, Constipation, Starting on Fri10/09/21 at 1642, For 30 days, Hold if patient has had a BM in the past 2 days. docusate (COLACE) 50 MG/5ML liquid 100 mg 100 mg, Oral, 2 Times Daily, First dose on Fri10/06/21 at 0900, For 30 days 10/11/2021 8:15 AM EST 100 mg docusate sodium (COLACE) capsule 100 mg Given 100 mg, Oral, 2 Times Daily, First dose on Fri10/06/21 at 0900, For 30 days 100 mg Given 10/10/2021 7:54 PM EST 100 mg Given 10/10/2021 7:58 AM EST 10/11/2021 8:15 AM EST 60 mg DULoxetine (CYMBALTA) DR capsule 60 mg Given 60 mg, Oral, Daily Standard, First dos e on Fri10/06/21 at 0900, For 30 days, D o not crush or chew 60 mg Given 10/10/2021 7:58 AM EST 60 mg Given 10/09/2021 8:09 AM EST 10/11/2021 8:15 AM EST 40 mg enoxaparin sodium (LOVENOX) injection 40 Given mg 40 mg, Subcutaneous, Daily Standard, First dose on Fri10/09/21 at 0945, For 30 days 40 mg Given 10/10/2021 8:06 AM EST 40 mg Given 10/09/2021 12:24 PM EST 10/11/2021 8:15 AM EST 600 mg guaifenesin (MUCINEX) 12 hr tablet 600 Given mg 600 mg, Oral, 2 Times Daily, First dose on 10/07/21 at 0900, For 30 days, D o not crush or chew 600 mg Given 10/10/2021 7:54 PM EST 600 mg Given 10/10/2021 7:58 AM EST heparin lock flush 10 UNIT/ML injection 20 Units 20 Units (2 mL), Intravenous, PRN, Line Care, Flushing, Starting on Jessica 1 at 1538, For 30 days, Verify blood return before use. Flush lines with 10 mL Sodium Chloride 0.9% routinely Q12hr s & before and after infusions or blood sampling per policy followed by 2 mL Heparin 10 units/mL (UNLESS PATIENT HAS HEPARIN ALLERGY). Reference CM C-34 Central Lines. heparin lock flush 10 UNIT/ML injection 20 Units 20 Units (2 mL), Intravenous, PRN, Line Care, Flushing, Starting on Jessica 1 at 1538, For 30 days, Verify blood return before use. Flush lines with 10 mL Sodium Chloride 0.9% routinely Q12hr s & before and after infusions or blood sampling per policy followed by 2 mL Heparin 10 units/mL (UNLESS PATIENT HAS HEPARIN ALLERGY). Reference CM C-34 Central Lines. heparin lock flush 10 UNIT/ML injection 20 Units 20 Units (2 mL), Intravenous, Every 12 hours, First dose on Jessica 10/11/21 at 1545, For 30 days, Verify blood return before use. Flush lines with 10 mL Sodium Chloride 0.9% routinely Q12hrs & before and after infusions or blood sampling per policy followed by 2 mL Heparin 10 units/mL (UNLESS PATIENT HAS HEPARIN ALLERGY). Reference CM C-34 Central Lines. heparin lock flush 10 UNIT/ML injection 20 Units 20 Units (2 mL), Intravenous, Every 12 hours, First dose on Jessica 10/11/21 at 1545, For 30 days, Verify blood return before use. Flush lines with 10 mL Sodium Chloride 0.9% routinely Q12hrs & before and after infusions or blood sampling per policy followed by 2 mL Heparin 10 units/mL (UNLESS PATIENT HAS HEPARIN ALLERGY). Reference CM C-34 Central Lines. 10/11/2021 3:19 PM EST 5 mLs lidocaine (XYLOCAINE) 1 % injection 5 mL Given by 5 mL, Subcutaneous, Once PRN, for PICC Other insertion, Starting on Jessica 10/11/21 at 0904, For 30 days 10/11/2021 8:15 AM EST 80 mg lurasidone HCl (LATUDA) tablet 80 mg Given 80 mg, Oral, Daily Standard, First dos e on 10/06/21 at 0900, For 30 days, Administer with food. 80 mg Given 10/10/2021 7:58 AM EST 80 mg Given 10/09/2021 8:10 AM EST 10/07/2021 11:39 AM EST 4 mg ondansetron (ZOFRAN) injection 4 mg Given 4 mg, Intravenous, Every 8 hours PRN, Nausea, Vomiting, Starting on Fri10/05/21 at 2200, For 12 days 12 hours ondansetron (ZOFRAN) tablet 4 mg 4 mg, Oral, Every 8 hours PRN, Nausea , Vomiting, Starting on Fri10/05/21 at 2200, For 12 days 12 hours 10/11/2021 4:00 PM EST 2 g 100 mL/hr oxacillin in dextrose 5 % 50 mL infusion New Bag 2 g 2 g, Intravenous, at 100 mL/hr, Every 4 hours, First dose on Fri10/09/21 at 1600, For 14 days 2 g 100 mL/hr New Bag 10/11/2021 12:02 PM EST 2 g 100 mL/hr New Bag 10/11/2021 8:23 AM EST 10/10/2021 6:06 AM EST 10 mg oxyCODONE (ROXICODONE) immediate release Given tablet 10 mg 10 mg, Oral, Every 4 hours PRN, Sever e Pain (Pain Scale Score 7-10), Starting on Fri10/05/21 at 2200, For 9 days 9 hours, Oxycodone immediate release is limited to 10 mg per dose. Higher doses ( only) require Pain Service consultation and approval. 10 mg Given 10/09/2021 8:59 PM EST 10 mg Given 10/09/2021 3:38 AM EST 10/11/2021 11:57 AM EST 5 mg oxyCODONE (ROXICODONE) immediate release Given tablet 5 mg 5 mg, Oral, Every 4 hours PRN, Moderate Pain (Pain Scale Score 4-6), Starting on Fri10/05/21 at 2200, For 9 days 9 hours, Oxycodone immediate release is limited to 10 mg per dose. Higher doses ([facility] only) require Pain Service consultation and approval. 5 mg Given 10/11/2021 5:49 AM EST 5 mg Given 10/10/2021 11:45 PM EST perflutren lipid microspheres (DEFINITY ) injectable suspension 9.78 mg 9.78 mg (1.5 mL), Intravenous, Once PRN, Other, Echo imaging enhancement, Starting on Fri10/10/21 at 0823, For 7 2 hours 10/10/2021 7:59 AM EST 17 g polyethylene glycol (MIRALAX) packet 17 Given g 17 g, Oral, Daily PRN, constipation, Starting on Fri10/05/21 at 2200, For 3 0 days 17 g Given 10/09/2021 12:23 PM EST potassium chloride (K-DUR) dissolvable tablet 20 mEq 20 mEq, Oral, 2 Times Daily, First dose on Fri10/11/21 at 2100, For 3 doses, D o not crush or chew 10/11/2021 8:15 AM EST 100 mg pregabalin (LYRICA) capsule 100 mg Given 100 mg, Oral, 2 Times Daily, First dose on Fri10/06/21 at 0900, For 20 days 100 mg Given 10/10/2021 7:54 PM EST 100 mg Given 10/10/2021 7:58 AM EST 10/11/2021 8:15 AM EST 300 mg rifAMPin (RIFADIN) capsule 300 mg Given 300 mg, Oral, Every 12 hours Standard (2 times per day), First dose on Fri10/09/21 at 2100, For 14 days 300 mg Given 10/10/2021 7:54 PM EST 300 mg Given 10/10/2021 7:58 AM EST senna (SENOKOT) syrup 10 mL 10 mL, Oral, Nightly, First dose on Fri10/05/21 at 2215, For 30 doses 10/10/2021 7:54 PM EST 2 tablets senna tablet 2 tablet Given 2 tablet, Oral, Nightly, First dose on Fri10/05/21 at 2215, For 30 doses 2 tablets Given 10/09/2021 8:59 PM EST 2 tablets Given 10/08/2021 8:56 PM EST sodium chloride 0.9 % bag 3-20 mL 3-20 mL, Intravenous, at 1-999 mL/hr, PRN, For Medication Administration and Line Clearance, Starting on Fri 1 at 1538, For 30 days, Flush line with sufficient amount of fluid needed based on head machinist recommendation for specific line size. Rate should be run at the same rate as medication in the line being flushed. sodium chloride flush 0.9 % 10 mL 10 mL, Intravenous, PRN, After Parenteral Nutrition, Starting on Fri10/11/21 at 1538, For 30 days, Flush line with 10 mL Sodium Chloride 0.9 % after Parenteral Nutrition (PN). sodium chloride flush 0.9 % 10 mL 10 mL, Intravenous, PRN, Flushing, Starting on Jessica 10/11/21 at 1538, For 3 0 days, Verify blood return before use. Flush lines with 10 mL Sodium Chloride 0.9% routinely Q12hrs & before and afte r infusions or blood sampling per policy followed by 2 mL Heparin 10 units/mL (UNLESS PATIENT HAS HEPARIN ALLERGY). Reference CM C-34 Central Lines. sodium chloride flush 0.9 % 10 mL 10 mL, Intravenous, PRN, Flushing, Starting on Jessica 10/11/21 at 1538, For 3 0 days, Verify blood return before use. Flush lines with 10 mL Sodium Chloride 0.9% routinely Q12hrs & before and afte r infusions or blood sampling per policy followed by 2 mL Heparin 10 units/mL (UNLESS PATIENT HAS HEPARIN ALLERGY). Reference CM C-34 Central Lines. sodium chloride flush 0.9 % 10 mL 10 mL, Intravenous, Every 12 hours, First dose on Jessica 10/11/21 at 1545, For 30 days, Verify blood return before use . Flush lines with 10 mL Sodium Chloride 0.9% routinely Q12hrs & before and afte r infusions or blood sampling per policy followed by 2 mL Heparin 10 units/mL (UNLESS PATIENT HAS HEPARIN ALLERGY). Reference CM C-34 Central Lines. sodium chloride flush 0.9 % 10 mL 10 mL, Intravenous, Every 12 hours, First dose on Jessica 10/11/21 at 1545, For 30 days, Verify blood return before use . Flush lines with 10 mL Sodium Chloride 0.9% routinely Q12hrs & before and afte r infusions or blood sampling per policy followed by 2 mL Heparin 10 units/mL (UNLESS PATIENT HAS HEPARIN ALLERGY). Reference CM C-34 Central Lines. 10/06/2021 8:23 AM EST 50,000 Units vitamin D (ERGOCALCIFEROL) capsule Given 50,000 Units 50,000 Units, Oral, Every 7 days, First dose on 10/06/21 at 0900, For 20 days Action Date Dose Rate Site Medication Order MAR Action 10/09/2021 5:01 AM EST 100 mL/hr 100 mL/hr 0.9% NaCl (MAINTENANCE) infusion New Bag at 100 mL/hr, Intravenous, Continuous, Starting on Fri10/05/21 at 2215, For 3 0 days 100 mL/hr 100 mL/hr New Bag 10/08/2021 4:56 PM EST 100 mL/hr 100 mL/hr New Bag 10/08/2021 1:42 PM EST 10/07/2021 12:34 PM EST 1,000 mg 400 mL/hr acetaminophen (OFIRMEV) infusion 1,000 New Bag mg 1,000 mg, Intravenous, Once, On Fri10/07/21 at 1230, For 1 dose, If NPO an d has not yet received an acetaminophen product in prior 4 hours., Recovery 10/07/2021 3:14 PM EST 2 g 100 mL/hr cefepime in NaCl 0.9 % 50 mL infusion 2 New Bag g 2 g, Intravenous, Administer over 30 Minutes, Every 8 hours, First dose on Fri10/07/21 at 1400, For 3 hours 10/09/2021 12:27 PM EST 2 g 100 mL/hr cefepime in NaCl 0.9 % 50 mL infusion 2 New Bag g 2 g, Intravenous, Administer over 30 Minutes, Every 8 hours, First dose on Fri10/07/21 at 2100, For 7 days 2 g 100 mL/hr New Bag 10/09/2021 5:02 AM EST 2 g 100 mL/hr New Bag 10/08/2021 9:00 PM EST 10/07/2021 12:31 PM EST 12.5 mcg fentaNYL (SUBLIMAZE) (PF) injection 12.5 Given by IV mcg push 12.5 mcg, Intravenous, Every 5 min PRN, Moderate Pain (Pain Scale Score 4-6), Starting on Fri10/07/21 at 1219, For 1 0 doses, Recovery 10/10/2021 12:12 AM EST 25 mcg fentaNYL (SUBLIMAZE) (PF) injection 25 New Bag mcg 25 mcg, Intravenous, Every 2 hours PRN, Other, breakthrough, Starting on Fri10/05/21 at 2200, For 5 days 9 hour s 25 mcg Given by IV push 10/08/2021 8:54 PM EST 25 mcg Given by IV push 10/08/2021 3:32 AM EST 10/07/2021 1:03 PM EST 0.5 mg HYDROmorphone (DILAUDID) injection 0.5 Given by IV mg push 0.5 mg, Intravenous, Every 5 min PRN, Severe Pain (Pain Scale Score 7-10), Starting on Fri10/07/21 at 1219, For 4 doses, Recovery 0.5 mg Given by IV push 10/07/2021 12:55 PM EST 0.5 mg Given by IV push 10/07/2021 12:47 PM EST 10/05/2021 9:48 PM EST 4 mg morphine sulfate (PF) injection 4 mg Given by IV 4 mg, Intravenous, Once, On Fri10/05/21 push at 2100, For 1 dose 10/07/2021 8:18 PM EST 500 mLs 500 mL/hr sodium chloride 0.9 % bolus 500 mL New Bag 500 mL, Intravenous, Once, On Fri10/07/21 at 2000, For 1 dose 10/09/2021 5:40 AM EST 1,500 mg vancomycin (VANCOCIN) 1500 mg in NaCl New Bag 0.9 % 512 mL (premix) 1,500 mg, Intravenous, Administer over 90 Minutes, Every 12 hours, First dose on Fri10/07/21 at 1600, For 7 days 1,500 mg New Bag 10/08/2021 4:59 PM EST 1,500 mg New Bag 10/08/2021 5:13 AM EST documented in this encounter Active and Recently Administered Medications Times are shown in EST. 10/10/2021 10/11/2021 Medication Order 10/09/2021 0017 (Given - Provider: Minor Wellington RN)0606 (Given - Provider: Minor Wellington RN)1128 (Given - Provider: Cheikh Pearson RN)1833 (Given - Provider: Treasure Lyons)2346 (Given - Provider: Minor Wellington RN) 0549 (Given - Provider: Minor Wellington, HIEN)1157 (Given - Provider: Geri Ledesma RN)1800 (Due - Provider: Lily Cazares RN) acetaminophen (TYLENOL) tablet 650 mg 0541 (Given - 650 mg, Oral, Every 6 hours Standard Provider: Johan Alston (4 times per day), First dose on Fri HIEN Jj)121 8 10/05/21 at 2215, For 30 days, Maximum (Given - Prov ider: daily dose of acetaminophen is 3000 mg Cheikh hopkins, from all sources in 24 hours. RN)2006 (Not Given - Provider: Chantal Mauricio, HIEN - Reason: Other) cefepime in NaCl 0.9 % 50 mL infusion 2 0502 (New Ba g - g (CANCELED) Provider: Aylin Alston 2 g, Intravenous, Administer over 30 Parviz, HIEN)053 5 Minutes, Every 8 hours, First dose on (Stopped - A ll Meds 10/07/21 at 2100, For 7 days - Provider: Aylin Jj, RN)1227 (New Bag - Provider: Cheikh Pearson RN) 0758 (See Alternative - Provider: Chris Pearson RN)1953 (See Alternative - Provider: Minor Wellington, HIEN) 0815 (See Alternative - Provider: Mae Ledesma, HIEN)2099 (Due - Provider: Lily Cazares, HIEN) docusate (COLACE) 50 MG/5ML liquid 100 0810 (See mg(Linked Group 1) Alternative - 100 mg, Oral, 2 Times Daily, First dose Provider: [facility] on 10/06/21 at 0900, For 30 days HIEN Pearson)21 (See Alternative - Provider: Treasure Lyons) 0758 (Given - Provider: Cheikh Pearson RN)195 (Given - Provider: Minor Wellington, HIEN) 0815 (Given - Provider: Geri Ledesma, HIEN)2099 (Due - Provider: Lily Cazares, HIEN) docusate sodium (COLACE) capsule 100 0810 (Given - mg(Linked Group 1) Provider: Cheikh 100 mg, Oral, 2 Times Daily, First dose HIEN Pearson )210 on 10/06/21 at 0900, For 30 days (Given - Provid er: Treasure Lyons) 0758 (Given - Provider: Cheikh Pearson RN) 0815 (Given - Provider: Geri Ledesma, HIEN) DULoxetine (CYMBALTA) DR capsule 60 mg 0809 (Given - 60 mg, Oral, Daily Standard, First dose Provider: Isidro ramos on 10/06/21 at 0900, For 30 days, Joselyn Smith N) not crush or chew 0806 (Given - Provider: Cheikh Pearson RN) 0815 (Given - Provider: Geri Ledesma RN) enoxaparin sodium (LOVENOX) injection 40 1224 (Given - mg Provider: Cheikh 40 mg, Subcutaneous, Daily Standard, HIEN Pearson) First dose on Fri10/09/21 at 0945, For 30 days 0758 (Given - Provider: Cheikh Pearson RN)1954 (Given - Provider: Minor Wellington RN) 0815 (Given - Provider: Geri Ledesma, HIEN)2100 (Due - Provider: Lily Cazares RN) guaifenesin (MUCINEX) 12 hr tablet 600 0809 (Given - mg Provider: Cheikh 600 mg, Oral, 2 Times Daily, First dose HIEN Pearson )2100 on Fri10/07/21 at 0900, For 30 days, Do (Given - Pr ovider: not crush or chew Treasure Pam Lyons) 1604 (Not Given - Provider: Geri zambrano RN - Reason: Other prep given) heparin lock flush 10 UNIT/ML injection 20 Units(Linked Group 2) 20 Units (2 mL), Intravenous, Every 12 hours, First dose on Jessica 10/11/21 at 1545, For 30 days, Verify blood return before use. Flush lines with 10 mL Sodium Chloride 0.9% routinely Q12hrs & before and after infusions or blood sampling per policy followed by 2 mL Heparin 10 units/mL (UNLESS PATIENT HAS HEPARIN ALLERGY). Reference CM C-34 Central Lines. 1604 (Not Given - Provider: Geri zambrano RN - Reason: Other prep given) heparin lock flush 10 UNIT/ML injection 20 Units(Linked Group 3) 20 Units (2 mL), Intravenous, Every 12 hours, First dose on Jessica 10/11/21 at 1545, For 30 days, Verify blood return before use. Flush lines with 10 mL Sodium Chloride 0.9% routinely Q12hrs & before and after infusions or blood sampling per policy followed by 2 mL Heparin 10 units/mL (UNLESS PATIENT HAS HEPARIN ALLERGY). Reference CM C-34 Central Lines. 0758 (Given - Provider: Cheikh Pearson RN) 0815 (Given - Provider: Geri Ledesma, HIEN) lurasidone HCl (LATUDA) tablet 80 mg 0810 (Given - 80 mg, Oral, Daily Standard, First dose Provider: Isidro ramos on Fri10/06/21 at 0900, For 30 days, HIEN Pearson) Administer with food. 0016 (New Bag - Provider: Minor Wellington , RN)0352 (New Bag - Provider: Minor Wellington RN)0420 (Stopped - All Meds - Provider: Minor Wellington RN)0812 (New Bag - Provider: Cheikh Pearson RN)1132 (New Bag - Provider: Cheikh Pearson RN) 1627 (New Bag - Provider: Funmi Daigle RN)1953 (New Bag - Provider: Minor Wellington, HIEN)2349 (New Bag - Provider: Minor Wellington, HIEN) 0418 (New Bag - Provider: Minor Wellington , HIEN)0500 (Stopped - All Meds - Provider: Minor Wellington RN)0823 (New Bag - Provider: Geri Ledesma RN)1202 (New Bag - Provider: Geri Ledesma, HIEN)1600 (New Bag - Provider: Geri Ledesma RN)1999 (Due) oxacillin in dextrose 5 % 50 mL infusion 1632 (New B ag - 2 g Provider: Cheikh 2 g, Intravenous, at 100 mL/hr, Every 4 Joselyn Pearson)2107 hours, First dose on Fri10/09/21 at (New Bag - Prov ider: 1600, For 14 days Treasure Lyons)2138 (Stopped - All Meds - Provider: Chantal Mauricio, HIEN) 2099 (Due) potassium chloride (K-DUR) dissolvable tablet 20 mEq 20 mEq, Oral, 2 Times Daily, First dose on Fri10/11/21 at 2100, For 3 doses, D o not crush or chew 0758 (Given - Provider: Cheikh Pearson RN)1954 (Given - Provider: Minor Wellington, HIEN) 0815 (Given - Provider: Geri Ledesma RN)2100 (Due - Provider: Lily Cazares RN) pregabalin (LYRICA) capsule 100 mg 808 (Given - 100 mg, Oral, 2 Times Daily, First dose Provider: [facility] on 10/06/21 at 0900, For 20 days HIEN Pearson)20 58 (Given - Provider: Treasure Lyons) 0758 (Given - Provider: Cheikh Pearson , HIEN)1953 (Given - Provider: Minor Wellington RN) 08 (Given - Provider: Geri Ledesma RN)2099 (Due) rifAMPin (RIFADIN) capsule 300 mg 2100 (Given - 300 mg, Oral, Every 12 hours Standard Provider: Oz Orozco (2 times per day), First dose on Fri) 10/09/21 at 2100, For 14 days 1953 (See Alternative - Provider: Ronit Wellington RN)2100 (See Alternative - Provider: Minor Wellington RN) 2199 (Due - Provider: Lily Cazares RN) senna (SENOKOT) syrup 10 mL(Linked Group 2058 (See 4) Alternative - 10 mL, Oral, Nightly, First dose on Fri Provider: Oz Orozco 10/05/21 at 2215, For 30 doses Dellostritto) 1953 (Given - Provider: Minor Wellington RN)2100 (Not Given - Provider: Minor Wellington RN - Reason: Other prep given) 2199 (Due - Provider: Lily Cazares RN) senna tablet 2 tablet(Linked Group 4) 2058 (Given - 2 tablet, Oral, Nightly, First dose on Provider: Jeremías Orozco 10/05/21 at 2215, For 30 doses Dellostritto) 1603 (Not Given - Provider: Geri zambrano RN - Reason: Other prep given) sodium chloride flush 0.9 % 10 mL(Linke d Group 2) 10 mL, Intravenous, Every 12 hours, First dose on Jessica 10/11/21 at 1545, For 30 days, Verify blood return before use . Flush lines with 10 mL Sodium Chloride 0.9% routinely Q12hrs & before and afte r infusions or blood sampling per policy followed by 2 mL Heparin 10 units/mL (UNLESS PATIENT HAS HEPARIN ALLERGY). Reference CM C-34 Central Lines. 1603 (Not Given - Provider: Geri zambrano RN - Reason: Other prep given) sodium chloride flush 0.9 % 10 mL(Linke d Group 3) 10 mL, Intravenous, Every 12 hours, First dose on Jessica 10/11/21 at 1545, For 30 days, Verify blood return before use . Flush lines with 10 mL Sodium Chloride 0.9% routinely Q12hrs & before and afte r infusions or blood sampling per policy followed by 2 mL Heparin 10 units/mL (UNLESS PATIENT HAS HEPARIN ALLERGY). Reference CM C-34 Central Lines. vancomycin (VANCOCIN) 1500 mg in NaCl 0540 (New Bag - 0.9 % 512 mL (premix) (CANCELED) Provider: Aylin Alston 1,500 mg, Intravenous, Administer over HIEN Jj) 90 Minutes, Every 12 hours, First dose on 10/07/21 at 1600, For 7 days vitamin D (ERGOCALCIFEROL) capsule 50,000 Units 50,000 Units, Oral, Every 7 days, First dose on 10/06/21 at 0900, For 20 days 10/10/2021 10/11/2021 Medication Order 10/09/2021 0.9% NaCl (MAINTENANCE) infusion 0501 (New Bag - (CANCELED) Provider: Aylin Alston at 100 mL/hr, Intravenous, Continuous, HIEN Jj) Starting on Fri10/05/21 at 2215, For 3 0 days 10/10/2021 10/11/2021 Medication Order 10/09/2021 bisacodyl (DULCOLAX) suppository 10 mg 10 mg, Rectal, Every 72 hours PRN, Constipation, Constipation, Starting on Tu10/09/21 at 1642, For 30 days, Hold if patient has had a BM in the past 2 days. 0012 (New Bag - Provider: Minor Wellington RN) fentaNYL (SUBLIMAZE) (PF) injection 25 mcg (CANCELED) 25 mcg, Intravenous, Every 2 hours PRN, Other, breakthrough, Starting on Fri10/05/21 at 2200, For 5 days 9 hour s heparin lock flush 10 UNIT/ML injection 20 Units(Linked Group 5) 20 Units (2 mL), Intravenous, PRN, Line Care, Flushing, Starting on Jessica 1 at 1538, For 30 days, Verify blood return before use. Flush lines with 10 mL Sodium Chloride 0.9% routinely Q12hr s & before and after infusions or blood sampling per policy followed by 2 mL Heparin 10 units/mL (UNLESS PATIENT HAS HEPARIN ALLERGY). Reference CM C-34 Central Lines. heparin lock flush 10 UNIT/ML injection 20 Units(Linked Group 6) 20 Units (2 mL), Intravenous, PRN, Line Care, Flushing, Starting on Jessica 1 at 1538, For 30 days, Verify blood return before use. Flush lines with 10 mL Sodium Chloride 0.9% routinely Q12hr s & before and after infusions or blood sampling per policy followed by 2 mL Heparin 10 units/mL (UNLESS PATIENT HAS HEPARIN ALLERGY). Reference CM C-34 Central Lines. 1519 (Given by Other - Provider: Gina Mead RN - Comment: PICC placement) lidocaine (XYLOCAINE) 1 % injection 5 m L 5 mL, Subcutaneous, Once PRN, for PICC insertion, Starting on Jessica 10/11/21 at 0904, For 30 days ondansetron (ZOFRAN) injection 4 mg(Linked Group 7) 4 mg, Intravenous, Every 8 hours PRN, Nausea, Vomiting, Starting on Fri10/05/21 at 2200, For 12 days 12 hours ondansetron (ZOFRAN) tablet 4 mg(Linked Group 7) 4 mg, Oral, Every 8 hours PRN, Nausea , Vomiting, Starting on Fri10/05/21 at 2200, For 12 days 12 hours 0606 (Given - Provider: Minor Wellington RN)1833 (See Alternative - Provider: Treasure Lyons)2345 (See Alternative - Provider: Minor Wellington RN) 0549 (See Alternative - Provider: Ronit Wellington RN)1157 (See Alternative - Provider: Geri Ledesma RN) oxyCODONE (ROXICODONE) immediate release 0338 (Given - tablet 10 mg(Linked Group 8) Provider: Aylin J 10 mg, Oral, Every 4 hours PRN, Kel Jj RN )2059 Pain (Pain Scale Score 7-10), Starting (Given - Prov ider: on Fri10/05/21 at 2200, For 9 days 9 Treasure E hours, Oxycodone immediate release is Dellostritto) limited to 10 mg per dose. Higher doses ([facility] only) require Pain Service consultation and approval. 0606 (See Alternative - Provider: Ronit Wellington, HIEN)1833 (Given - Provider: Treasure E Brianlostrifransiscoo)2345 (Given - Provider: Minor Wellington, HIEN) 0549 (Given - Provider: Minor Wellington, HIEN)1157 (Given - Provider: Geri Ledesma RN) oxyCODONE (ROXICODONE) immediate release 0338 (See tablet 5 mg(Linked Group 8) Alternative - 5 mg, Oral, Every 4 hours PRN, Provider: Aylin Alston Moderate Pain (Pain Scale Score 4-6), HIEN Jj)20 59 Starting on Fri10/05/21 at 2200, For 9 (See Alterna tive - days 9 hours, Oxycodone immediate Provider: Treasure E release is limited to 10 mg per dose. Dellostritto) Higher doses ([facility] only) require Pain Service consultation and approval. perflutren lipid microspheres (DEFINITY ) injectable suspension 9.78 mg 9.78 mg (1.5 mL), Intravenous, Once PRN, Other, Echo imaging enhancement, Starting on Fri10/10/21 at 0823, For 7 2 hours 0759 (Given - Provider: Cheikh Pearson RN) polyethylene glycol (MIRALAX) packet 17 1223 (Given - g Provider: Cheikh 17 g, Oral, Daily PRN, constipation, HIEN Pearson) Starting on Fri10/05/21 at 2200, For 3 0 days sodium chloride 0.9 % bag 3-20 mL 3-20 mL, Intravenous, at 1-999 mL/hr, PRN, For Medication Administration and Line Clearance, Starting on Fri 1 at 1538, For 30 days, Flush line with sufficient amount of fluid needed based on head machinist recommendation for specific line size. Rate should be run at the same rate as medication in the line being flushed. sodium chloride flush 0.9 % 10 mL 10 mL, Intravenous, PRN, After Parenteral Nutrition, Starting on Jessica 10/11/21 at 1538, For 30 days, Flush line with 10 mL Sodium Chloride 0.9 % after Parenteral Nutrition (PN). sodium chloride flush 0.9 % 10 mL(Linke d Group 5) 10 mL, Intravenous, PRN, Flushing, Starting on Jessica 10/11/21 at 1538, For 3 0 days, Verify blood return before use. Flush lines with 10 mL Sodium Chloride 0.9% routinely Q12hrs & before and afte r infusions or blood sampling per policy followed by 2 mL Heparin 10 units/mL (UNLESS PATIENT HAS HEPARIN ALLERGY). Reference CM C-34 Central Lines. sodium chloride flush 0.9 % 10 mL(Linke d Group 6) 10 mL, Intravenous, PRN, Flushing, Starting on Jessica 10/11/21 at 1538, For 3 0 days, Verify blood return before use. Flush lines with 10 mL Sodium Chloride 0.9% routinely Q12hrs & before and afte r infusions or blood sampling per policy followed by 2 mL Heparin 10 units/mL (UNLESS PATIENT HAS HEPARIN ALLERGY). Reference CM C-34 Central Lines. Order Group 1: docusate sodium (COLACE) capsule 100 mg Jump to med 100 mg, Oral, 2 Times Daily, First dose on 10/06/21 at 0900, For 30 days Or docusate (COLACE) 50 MG/5ML liquid 100 mgJump to med 100 mg, Oral, 2 Times Daily, First dose on 10/06/21 at 0900, For 30 days Group 2: sodium chloride flush 0.9 % 10 mLJump t o med 10 mL, Intravenous, Every 12 hours, Fi rst dose on Jessica 10/11/21 at 1545, For 30 days
Verify blood return before use. Flush lines with 10 mL Sodium Chloride 0.9% routinely Q12hrs & before and after infusions or blood sampling per policy followed by 2 mL Heparin 10 units/mL (UNLESS PATIENT HAS HEPARIN ALLERGY). Reference CM C-34 Travis tral Lines.
And heparin lock flush 10 UNIT/ML injection 20 UnitsJump to med 20 Units (2 mL), Intravenous, Every 12 hours, First dose on Jessica 10/11/21 at 1545, For 30 days
Verify blood return before use. Flush lines with 10 mL Sodium Chloride 0.9% routinely Q12hrs & before and after infusions or blo od sampling per policy followed by 2 mL Heparin 10 units/mL (UNLESS PATIENT HAS HEPARIN ALLERGY). R eference CM C-34 Central Lines.
Group 3: sodium chloride flush 0.9 % 10 mLJump t o med 10 mL, Intravenous, Every 12 hours, Fi rst dose on [facility] 10/11/21 at 1545, For 30 days
Verify blood return before use. Flush lines with 10 mL Sodium Chloride 0.9% routinely Q12hrs & before and after infusions or blood sampling per policy followed by 2 mL Heparin 10 units/mL (UNLESS PATIENT HAS HEPARIN ALLERGY). Reference CM C-34 Travis tral Lines.
And heparin lock flush 10 UNIT/ML injection 20 UnitsJump to med 20 Units (2 mL), Intravenous, Every 12 hours, First dose on [facility] 10/11/21 at 1545, For 30 days
Verify blood return before use. Flush lines with 10 mL Sodium Chloride 0.9% routinely Q12hrs & before and after infusions or blo od sampling per policy followed by 2 mL Heparin 10 units/mL (UNLESS PATIENT HAS HEPARIN ALLERGY). R eference CM C-34 Central Lines.
Group 4: senna (SENOKOT) syrup 10 mLJump to med 10 mL, Oral, Nightly, First dose on Fri10/05/21 at 2215, For 30 doses Or senna tablet 2 tabletJump to med 2 tablet, Oral, Nightly, First dose on Fri10/05/21 at 2215, For 30 doses Group 5: sodium chloride flush 0.9 % 10 mLJump t o med 10 mL, Intravenous, PRN, Flushing, Star ting on Jessica 10/11/21 at 1538, For 30 days
Verify blood return before use. Flush lines with 10 mL Sodium Chloride 0.9% routinely Q12hrs & before and after infusions or blood sampling per policy followed by 2 mL Heparin 10 units/mL (UNLESS PATIENT HAS HEPARIN ALLERGY). Reference CM C-34 Travis tral Lines.
And heparin lock flush 10 UNIT/ML injection 20 UnitsJump to med 20 Units (2 mL), Intravenous, PRN, Line Care, Flushing, Starting on Jessica 10/11/21 at 1538, For 30 days
Verify blood return before use. Flush lines with 10 mL Sodium Chloride 0.9% routinely Q12hrs & before and after infusions or blood s ampling per policy followed by 2 mL Heparin 10 units/mL (UNLESS PATIENT HAS HEPARIN ALLERGY). R eference CM C-34 Central Lines.
Group 6: sodium chloride flush 0.9 % 10 mLJump t o med 10 mL, Intravenous, PRN, Flushing, Star ting on Jessica 10/11/21 at 1538, For 30 days
Verify blood return before use. Flush lines with 10 mL Sodium Chloride 0.9% routinely Q12hrs & before and after infusions or blood sampling per policy followed by 2 mL Heparin 10 units/mL (UNLESS PATIENT HAS HEPARIN ALLERGY). Reference CM C-34 Travis tral Lines.
And heparin lock flush 10 UNIT/ML injection 20 UnitsJump to med 20 Units (2 mL), Intravenous, PRN, Line Care, Flushing, Starting on Jessica 10/11/21 at 1538, For 30 days
Verify blood return before use. Flush lines with 10 mL Sodium Chloride 0.9% routinely Q12hrs & before and after infusions or blood s ampling per policy followed by 2 mL Heparin 10 units/mL (UNLESS PATIENT HAS HEPARIN ALLERGY). R eference CM C-34 Central Lines.
Group 7: ondansetron (ZOFRAN) injection 4 mgJump to med 4 mg, Intravenous, Every 8 hours PRN, Nausea, Vomiting, Starting on Fri10/05/21 at 2200, For 12 days 12 hours Or ondansetron (ZOFRAN) tablet 4 mgJump to med 4 mg, Oral, Every 8 hours PRN, Nausea , Vomiting, Starting on Fri10/05/21 at 2200, For 12 days 12 hours Group 8: oxyCODONE (ROXICODONE) immediate releas e tablet 5 mgJump to med 5 mg, Oral, Every 4 hours PRN, Modera te Pain (Pain Scale Score 4-6), Starting on Fri10/05/21 at 2200, For 9 days 9 hours
Oxycodone i mmediate release is limited to 10 mg per dose. Higher doses ([facility] only) require Pain Service consulta tion and approval.
Or oxyCODONE (ROXICODONE) immediate releas e tablet 10 mgJump to med 10 mg, Oral, Every 4 hours PRN, Sever e Pain (Pain Scale Score 7-10), Starting on Fri10/05/21 at 2200, For 9 days 9 hours
Oxycodone i mmediate release is limited to 10 mg per dose. Higher doses ([facility] only) require Pain Service consulta tion and approval.
documented in this encounter Additional Health Concerns Onset Date Resolved Time Infection Last Indicated 10/05/2021 10/06/2021 12:19 AM EST Respiratory Rule-Out 10/05/2021 documented as of this encounter Care Teams Start Date End Date Quality Management Nurse Relationship Specialty 01/17/21 Kimberlee Fisher PA PCP - General [id number] [place] [id number] documented as of this encounter
--- OUTSIDE RECORDS SUMMARY | 2021-10-31 07:02 | CCD ---
Author Author [facility] Organization [facility] Address Unknown Phone Unavailable Care Team Providers Care Metal Melter Name Role Phone Kimberlee Fisher Unavailable PROBLEMS Type Condition ICD9-CM Code [id number] Code Onset Dates Condition S tatus W/U Status Risk SNOMED Code Notes Problem Bipolar depression F31.9 Active confirmed 7 45446181 Problem Scoliosis of lumbar region d ue to degenerative disease of spine in adult M41.56 Active confirmed 504065514 Problem Recurrent major depressive disorder, in partial remission F33.41 Active confirmed 97087680 Problem Vitamin D deficiency disease E55.9 Active confirme d 60598032 Problem Morbid obesity due to excess calories E66.01 Ac tive confirmed 698395224 Problem Anxiety F41.9 Active confirmed 38632717 Problem Morbid obesity E66.01 Active confirmed 46024 6002 Problem Mixed hyperlipidemia E78.2 Active confirmed 417125037 Problem Psychophysiological insomnia F51.04 Active confirme d 465241387 Problem Lumbar spondylosis M47.816 Active confirmed 106317604 Problem Cigarette nicotine dependence without complication F17.210 Active confirmed 66407256 Problem Lumbago with sciatica, left side M54.42 Active confirmed 573867854 Problem Lumbago with sciatica, right side M54.41 Active confirmed 073200413753828 Problem Other idiopathic scoliosis, lumbar region M41.26 Active confirmed 220581588 Problem Other chronic pain G89.29 Active confirmed 8 [id number] ALLERGIES No Known Allergies ENCOUNTERS from 1975 to 2021-09-06 Encounter Location Date Provider Diagnosis [address] [phone] [place] [address] 14 Aug, 2021 Kimberlee Fisher IMMUNIZATIONS Vaccine Route Administration Date Status COVID-19 [...] Education Language: Question Answer Notes Languages spoken: Irish Drug and Alcohol Question Answer Notes Total [...] End Date Status Vitamin D 50 MCG (1999 UT) 1 tablet Orally Once a day for 30 day (s) March, Active Latuda 120 MG 1 tablet with food Orally Once a day Active Pregabalin 100 MG 1 capsule Orally three times a day Active Celecoxib 200 MG 1 capsule with food Orally Twice a day Active PROCEDURES No Information RESULTS No Results REASON FOR VISIT RESENDIZ, body aches MEDICAL (GENERAL) HISTORY Type Description Date Medical [...] Details Provider Name:Kimberlee Fisher, 2021-10-16 10:30:00 AM, [id number], , [place], [id number], Insurance Providers Payer Name Payer Address Payer Phone Insured Name Patient Relati onship to Insured Coverage Start Date Coverage End Date [facility] [employer] [facility] [address] [facility] [phone] HESHAM JOHN self
--- OUTSIDE RECORDS SUMMARY | 2021-10-31 07:02 | CCD | Summary of Care ---
Author Author [facility] Organization [facility] Address Unknown Phone Unavailable Care Team Providers Care Regulatory Law Specialist Name Role Phone Kimberlee Fisher PCP Reason for Visit * Reason Comments Post-op s/p thoracolumbar debridmen t; skin, subq tissue, muscle and bone * Office Visit (Routine) - Authorized Diagnoses / Procedures Referred By Contact Referred To Conta ct Specialty Diagnoses 6 week f/u Lumbar. MMA/WFL Procedures OFFICE VISIT Lumbago with sciatica, left and right side Kimberlee Fisher PA [address] [place] [address] Yuri Norris NP [address] [place] [id number] Email: [email or web address] Referral ID Status Reason Start Date Expiration Visits Vi sits Date Requested Authorized [id number] Authorized 10/03/2021 2022 99 99 Encounter Details Care Team Description Date Type Department Yuri Norris NP [address] [place] [id number] [email or web address] Status post debridement (Primary Dx); S/P lumbar fusion; Encounter for post surgical wound check 10/22/2021 Office Visit LORRAINE Gibbons [address] [facility] [place] [address] [place] [phone] Allergies No known active allergiesdocumented as of this encounter (statuses as of 10/22/2021) Medications End Date Status Medication Sig Dispensed [...] Active Ergocalciferol 1.25 MG Vitamin D2 0 (14673 UT) Oral Capsule 1,250 mcg (ERGOCALCIFEROL) (50,000 [...] 1 12 g every 24 (twenty-four) hours 11/20/2021 Active rifAMPin 300 MG Oral Take 1 80 capsule 0 10/11 Capsule (RIFADIN) capsule by 1 mouth every 12 (twelve) hours Active Senna 8.6 MG Oral Tablet Take 2 120 tablet 0 1 tablets by 1 mouth nightly Additional Information Patient not taking. Reported on 10/22/2021 Active Heparin Sodium Lock Flush 5 mLs by 100 each 5 100 UNIT/ML Intravenous Intracatheter 1 SolutionIndications: route as Lumbar surgical wound needed fluid collection, subsequent encounter, Encounter for long-term (current) use of antibiotics Active Normal Saline Flush 0.9 % Inject 1,000 1000 mL 5 Intravenous mLs into the 1 SolutionIndications: vein as Lumbar surgical wound needed fluid collection, subsequent encounter, Encounter for long-term (current) use of antibiotics Active Oxacillin Sodium 2 GM Inject 2,000 1 each 0 Injection Solution mg into the 1 ReconstitutedIndications: vein every 4 Lumbar surgical wound (four) hours fluid collection, subsequent encounter, Encounter for long-term (current) use of antibiotics Active DULoxetine HCl 30 MG Oral Take 30 mg by 0 08/25 Capsule Delayed Release mouth Two 1 Particles (CYMBALTA) Times Daily Active oxyCODONE-Acetaminophen oxycodone-darren 0 5-325 MG Oral Tablet taminophen 5 (PERCOCET) mg-325 mg tablet TAKE ONE TO TWO TABLETS BY MOUTH EVERY 4 HOURS NEEDED FOR PAIN FOR UP TO 7 DAYS MAXIMUM DAILY DOSE = 6 Active Potassium Chloride ER 20 TAKE ONE 0 10/11 MEQ Oral Tablet Extended TABLET BY 1 Release MOUTH TWICE A DAY FOR 10 DAYS documented as of this encounter (statuses as of 10/22/2021) Active Problems Problem Noted Date Anxiety 10/11/2021 [...] as of this encounter (statuses as of 10/22/2021) Immunizations Name Administration Dates Next Due documented [...] on file Date Recorded COVID-19 Exposure Response 10/22/2021 2:34 PM EST In the last month, have you been in contact with No / Unsure someone who was confirmed or suspected to have Coronavirus / COVID-19? documented as of this encounter Last Filed Vital Signs Not on filedocumented in this encounter Progress Notes * Yuri Norris, MARK - 10/22/2021 2:[address] Collins Chief Complaint Patient presents with Post-op s/p thoracolumbar debridment; skin, subq tissue, muscle and bone Subjective: Eleanor Cedillo presents today for follow up status post debridement and washout of posterior lumbar wound. Patient states that overall she is doing very well at this time. Patient states that she still does have some minor discomfort but d enies any fevers, chills, sweats. Patient states that she is currently using ant ibiotics at this time as well this is being managed by infectious disease. She d enies any issues with the wound. She is using a walker at this time. She is cont inuing to manage her pain with oxycodone. She would request a refill at this moon e.. Exam: There were no vitals filed for this visit. Patient is in no acute distress. Patient is alert to person, place and time GAIT: Ambulates with slow, nonmyelopathic WOUND: clean dry and intact without erythema, fluctuance or drainage. SPINE/NEUROLOGICAL EXAM: 5/5 strength in bilateral EHLs, TAs, gastroc-soleus com plexes, quadriceps and hamstring mechanisms. Sensation grossly intact to touch. There were no pathological upper motor neuron signs demonstrated. Reflexes were symmetric and not elevated. VASCULAR: LE warm and well perfused. Denies calf tenderness. Radiographic studies: No new imaging studies were taken at this visit. Assessment: 1. Status post debridement 2. S/P lumbar fusion 3. Encounter for post surgical wound check Plan: At this time I discussed with the patient that we would remove her sutures. I di scussed with her that if she noted any fevers, chills, sweats that she is consti pated she is noticing any increased drainage or fluid collection that she is to call us for reevaluation. She stated understanding and agreement with this plan. We will plan to see her back in 4 weeks with x-rays at that time. I have advised the patient to call our office with any questions, concerns, new or worsening symptoms. I have answered all questions to patient's stated satisfa ction. This document was dictated using [employer] software. A reasonable attempt at proof reading has been made to minimize errors. Please ca ll our office if you have any questions. documented in this encounter Plan of Treatment Care Team Description Date Type Specialty Randy, Allan F, PA [address] [facility] [address] [place] [address] [email or web address] 11/14/2021 Office Visit Infectious Diseases Health Maintenance Due Date Last Done Comments MMR Vaccines (1 of 1 - 1977 Standard series) Varicella Vaccines (1 of 1977 2 - 2-dose childhood series) DTaP,Tdap,and Td Vaccines 1983 (1 - Tdap) HIV Screening 1989 Cervical Cancer Screening 1997 5 years Influenza Vaccine 08/24/2021 01/24/2020, 10/02/2016 COVID-19 Vaccine Completed 03/23/2021, 02/02/2021 HIB Vaccines Aged Out No longer eligible [...] Area Manufactur er 12/01/2016 [id number] / / [id number] Drn - Resolve - 8 Fr - [id number] Right: Abdomen MERIT Implanted: Qty: 1 on 05/31/2014 by MEDICAL Magdaleno Nolan MD at OR [facility] 04/23/2017 [id number] / / [id number] N/A: Abdomen NEUROPSYCHOLOGY DIVISION CHIEF K INC Loc.. - [id number] Implanted: Qty: 1 on 06/28/2014 by Magdaleno Nolan MD at OR INTERVENTIONAL RADIOLOGY 04/23/2017 [id number] / / [id number] Tvt Retropubic Device Exact - N/A: Urethra GYNECAR E, [id number]. Implanted: Qty: 1 on 07/31/2016 by Jeronimo Hinson MD at OR 5E documented as of this encounter Results Not on filedocumented in this encounter Visit Diagnoses Diagnosis Status post debridement - Primary S/P lumbar fusion Arthrodesis status Encounter for post surgical wound check documented in this encounter Care Teams Start Date End Date Regulatory Law Specialist Relationship Specialty 01/17/21 Kimberlee Fisher PA PCP - General [address] [place] [address] documented as of this encounter
--- OUTSIDE RECORDS SUMMARY | 2021-10-31 07:02 | CCD ---
Author Organization Unknown Address [address] [place] [address] Phone [phone] Care Team Providers Care Primary Therapist Name Role Phone DILLON WHITE ROSALVA 3 [phone] Allergies Code Code System Name Reaction Severity Status Onset NKDA Medications Name Status Start Date Stop Date acetaminophen 300 mg-codeine 30 mg table t TAKE ONE TABLET BY MOUTH EVERY 12 HOURS NEEDED FOR PAIN MAXIMUM DAILY DOSE 2 TABLETS Completed 03/20/2021 albuterol sulfate HFA 90 mcg/actuation aerosol inhaler Completed 03/20/2021 alprazolam 0.25 mg tablet Completed 2020 amoxicillin 875 mg-potassium clavulanate 125 mg tablet Completed 12/30/2019 aripiprazole 5 mg tabs Completed 03/20/20 21 aripiprazole 10 mg tablet TAKE ONE TABLET BY MOUTH AT BEDTIME Active Not available aripiprazole 5 mg tablet TAKE ONE TABLET BY MOUTH AT BEDTIME Completed Breo Ellipta 100 mcg-25 mcg/dose powder for inhalation Completed 12/30/2019 bupropion HCl 75 mg tablet TAKE ONE TABLET BY MOUTH EVERY DAY Active Not available bupropion HCl XL 150 mg 24 hr tablet, ex tended release TAKE ONE TABLET BY MOUTH EVERY MORNING Active Not available buspirone 15 mg tablet TAKE ONE TABLET BY MOUTH THREE TIMES A DAY Active Not available carisoprodol 350 mg tablet Completed 03/20 celecoxib 200 mg caps Completed celecoxib 100 mg capsule TAKE ONE CAPSULE BY MOUTH TWICE A DAY NEEDED Active Not available celecoxib 200 mg capsule Completed 021 cephalexin 500 mg capsule Completed 2020 cholecalciferol (vitamin D3) 50 mcg (2,0 00 unit) tablet TAKE ONE TABLET BY MOUTH EVERY DAY Active Not available clonidine hcl 0.1 mg tabs Completed 03/20 clonidine HCl 0.1 mg tablet TAKE 1/2 TO 1 TABLET BY MOUTH TWO TIMES A DAY NEEDED FOR ANXIETY Completed 03/20/2021 COVID-19 test specimen collection TEST DIRECTED Active Not available cyclobenzaprine 10 mg tablet TAKE ONE TABLET BY MOUTH EVERY 8 HOURS NEEDED MUSCLE PAIN Completed 09/11/2021 doxycycline monohydrate 100 mg capsule Completed 02/07/2020 duloxetine 20 mg capsule,delayed release Completed 04/24/2020 duloxetine 30 mg capsule,delayed release TAKE ONE CAPSULE BY MOUTH EVERY DAY Completed duloxetine 60 mg capsule,delayed release Active Not available duloxetine hydrochloride 60 mg cpep Completed 03/20/2021 Flucelvax Quad 60 mcg (15 mcg x 4)/0.5 mL in tramuscular susp Completed 02/07/2020 fluconazole 150 mg tablet TAKE 1 TABLET BY MOUTH FOR 1 DOSE Completed 05/17 fluticasone 232 mcg-salmeterol 14 mcg/actuation breath activated powdr Completed 12/30/2019 gabapentin 300 mg capsule Completed 2019 gabapentin 400 mg capsule Completed 2019 gabapentin 600 mg tablet TAKE ONE TABLET BY MOUTH THREE TIMES A DAY Active Not available gabapentin 800 mg tablet TAKE ONE TABLET BY MOUTH THREE TIMES A DAY Active Not available hydrocodone 5 mg-acetaminophen 325 mg ta blet TAKE ONE TABLET BY MOUTH EVERY 4 HOURS NEEDED FOR PAIN MAXIMUM DAILY DOSE 4 Completed 09/11/2021 hydroxyzine HCl 25 mg tablet TAKE 1 2 TABLETS BY MOUTH TWO TIMES A DAY NEEDED FOR ANXIETY Completed 03/20/2021 latuda 80 mg tabs Completed 03/20/2021 Latuda 120 mg tablet TAKE 1 TABLET BY MOUTH ONCE DAILY WITH 350 CALORIE SNACK OR RIGHT AFTER DINNER Active Not available Latuda 20 mg tablet TAKE 1 TABLET BY MOUTH EVERY DAY WITH A 350 CALORIE SNACK OR IMMEDIATELY AFTER DINNER Completed 03/20/2021 Latuda 60 mg tablet once daily Completed 03/20/2021 Latuda 80 mg tablet TAKE 1 TABLET BY MOUTH WITH 350 CALORIE SNACK OR IMMEDIATELY AFTER DINER Completed 03/20/2021 Lidoderm 5 % topical patch APPLY 1 PATCH BY TOPICAL ROUTE ONCE DAILY (MAY WEAR UP TO 12 HOURS.) Unknown Not available meloxicam 15 mg tablet TAKE ONE TABLET BY MOUTH EVERY DAY WITH FOOD OR MILK Active Not available methocarbamol 500 mg tablet Completed 02/23 methylprednisolone 4 mg tablets in a dos e pack FOLLOWING PACKAGE DIRECTIONS Completed 09/11/2021 nicotine 14 mg/24 hr daily transdermal p atch APPLY ONE PATCH TO SKIN ONCE A DAY Completed 02/23 oxybutynin chloride 5 mg tablet TAKE 4 TABLETS BY MOUTH EVERY EVENING Completed 03/20/2021 oxycodone 15 mg tablet TAKE 1/2 TO 1 TABLET BY MOUTH EVERY 4 TO 6 HOURS NEEDED FOR PAIN MODERATE TO SEVERE MAXIMUM DAILY DOSE 6 Completed 03/20/20 21 oxycodone 5 mg tablet TAKE ONE TABLET BY MOUTH EVERY 4 HOURS NEEDED FOR PAIN MAXIMUM DAILY DOSE 6 Completed 09/11/2021 paroxetine 10 mg tablet TAKE ONE TABLET BY MOUTH EVERY DAY Completed 02/23 paroxetine 40 mg tablet Completed 03/20/20 21 paroxetine HCl 50 mg once daily Completed 03/20/2021 phenazopyridine 200 mg tablet TAKE ONE TABLET BY MOUTH THREE TIMES A DAY AFTER MEALS FOR 2 DAYS Completed 05/17/2021 prednisone 20 mg tablet TAKE ONE TABLET BY MOUTH TWICE A DAY Completed pregabalin 100 mg caps Completed 03/20/20 21 pregabalin 100 mg capsule TAKE ONE CAPSULE BY MOUTH THREE TIMES A DAY MAXIMUM DAILY DOSE 3 Active Not available pregabalin 150 mg capsule Take 1 capsule 3 times a day by oral route. Active Not available pregabalin 50 mg capsule TAKE ONE CAPSULE BY MOUTH TWICE A DAY MAXIMUM DAILY DOSE 2 Active Not available pregabalin 75 mg capsule Completed 021 sertraline 50 mg tablet Completed 05/17/20 sulfamethoxazole 800 mg-trimethoprim 160 mg tablet TAKE ONE TABLET BY MOUTH TWICE A DAY FOR 7 DAYS Completed 05/17/2021 tizanidine 4 mg tablet TAKE ONE TABLET BY MOUTH FOUR TIMES A DAY NEEDED Completed 03/20/2021 tizanidine hydrochloride 4 mg tabs Completed 03/20/2021 tramadol 50 mg tablet Completed 09/11/2021 valacyclovir 1 gram tablet TAKE TWO TABLETS BY MOUTH TWICE A DAY FOR 1 DAY AT ONSET OF COLD SORES Active Not available valacyclovir 500 mg tablet Completed 03/20 Vitamin D2 1,250 mcg (50,000 unit) capsu le TAKE 1 CAPSULE BY MOUTH ONCE A MONTH Active No t available vitamin d3 50 mcg (2000 ut) tabs Active Not available zolpidem 10 mg tablet TAKE ONE TABLET BY MOUTH AT BEDTIME NEEDED FOR SLEEP MAXIMUM DAILY DOSE 1 Completed 03/20/2021 zolpidem 5 mg tablet Completed 12/30/2019 zolpidem tartrate 10 mg tabs Completed Problems Name Status Onset Date Source Lumbosacral Spondylosis without Myelopathy Active 12/30 Spondylosis without Myelopathy Active 12/30/2019 Displacement of Lumbar Intervertebral Disc without Myelopathy Ac tive 12/30/2019 Degeneration of Lumbar Intervertebral Disc Active 12/30 Degeneration of Lumbosacral Intervertebral Disc Active 12/30/2019 Intervertebral Disc Disorder Active 12/30/2019 Spinal Stenosis of Lumbar Region Active 12/30/2019 Lumbar Radiculopathy Active 12/30/2019 Procedures Date Name Performed by 09/10/2021 Lumbar Spinal Fusion Information not georgette ilable 07/11/2021 Revision of Fusion of Lumbar Spine Notes: Dr. Collins Information not available Procedure on Foot Notes: left achilles Information not available Knee Surgery Notes: left Information not available Cholecystectomy Information not avai lable Procedure on Ankle Notes: x3 right Information not available 04/10/2021 MRI, Lumbar Spine, W/wo Contrast [facility] Radiology Dept [address] [place] [phone] (Work Place) Results Lab Results Date Name Specimen Result Interpretation Description Value Range Status Address 06/01/2021 [facility] P[facility] Report NOS No observation recorded. [facility]: [address] [facility] 06/01/2021 SARS CoV 2 RNA (COVID-19), QL, inspector balance truing-PCR, Respirat ory Specimen NOS Normal Sars-cov-2 negative negative Final [facility]: [address] [facility] [place] 03/26/2021 [facility] Pdf Report NOS No observation recorded. [facility]: [address] [facility] [place] 03/26/2021 SARS CoV 2 RNA (COVID-19), QL, inspector balance truing-PCR, Respirat ory Specimen NOS Normal Sars-cov-2 negative negative Final [facility]: [address] [facility] [place] 04/07/2020 SARS CoV 2 RNA (COVID-19), QL, inspector balance truing-PCR, Respiratory Specim en No observation recorded. [employer]: [address] [place] [address] Past Encounters 09/11/2021 Degeneration of Lumbar Intervertebral Disc; Degeneration of Lumbosacral Intervertebral Disc; Displacement of Lumbar Intervertebral Disc without Myelopathy; Intervertebral Disc Disorder; Spondylosis without Myelopathy; Lumbosacral Spondylosis without Myelopathy; Lumbar Radiculopathy; Spinal Stenosis of Lumbar Region; Myofascial Pain; Inflammation of Sacroiliac Joint; Lumbar Post-laminectomy Syndrome Tea Spangler NP: [address] [address], [place] [address], Ph. 06/06/2021 Lumbar Post-laminectomy Syndrome; Lumbar Radiculopathy; Degeneration of Lumbar Intervertebral Disc; Degeneration of Lumbosacral Intervertebral Disc; Displacement of Lumbar Intervertebral Disc without Myelopathy; Intervertebral Disc Disorder; Spondylosis without Myelopathy; Lumbosacral Spondylosis without Myelopathy; Spinal Stenosis of Lumbar Region; Myofascial Pain; Inflammation of Sacroiliac Joint Juaquin Jacques MD: [id number] [address], Ph. 06/01/2021 Pre-surgery Testing; Viral Screening Juaquin Jacques MD: [id number] [address], Ph. [phone] 05/17/2021 Degeneration of Lumbar Intervertebral Disc; Degeneration of Lumbosacral Intervertebral Disc; Displacement of Lumbar Intervertebral Disc without Myelopathy; Intervertebral Disc Disorder; Spondylosis without Myelopathy; Lumbosacral Spondylosis without Myelopathy; Lumbar Radiculopathy; Spinal Stenosis of Lumbar Region; Myofascial Pain; Inflammation of Sacroiliac Joint; Lumbar Post-laminectomy Syndrome Tea Spangler [employer]: [address] [place] [address], Ph. 04/10/2021 Degeneration of Lumbar Intervertebral Disc; Degeneration of Lumbosacral Intervertebral Disc; Displacement of Lumbar Intervertebral Disc without Myelopathy; Intervertebral Disc Disorder; Spondylosis without Myelopathy; Lumbosacral Spondylosis without Myelopathy; Lumbar Radiculopathy; Spinal Stenosis of Lumbar Region; Myofascial Pain; Inflammation of Sacroiliac Joint; Lumbar Post-laminectomy Syndrome Tea Spangler [employer]: [id number] [address], Ph. 03/29/2021 Inflammation of Sacroiliac Joint; Degeneration of Lumbar Intervertebral Disc; Degeneration of Lumbosacral Intervertebral Disc; Displacement of Lumbar Intervertebral Disc without Myelopathy; Intervertebral Disc Disorder; Spondylosis without Myelopathy; Lumbosacral Spondylosis without Myelopathy; Lumbar Radiculopathy; Spinal Stenosis of Lumbar Region; Myofascial Pain Juaquin Jacques MD: [id number] [address], [place] [address], Ph. 03/26/2021 Pre-surgery Testing; Viral Screening Juaquin Jacques MD: [address] [address], [place] [address], Ph. [phone] 03/20/2021 Degeneration of Lumbar Intervertebral Disc; Degeneration of Lumbosacral Intervertebral Disc; Displacement of Lumbar Intervertebral Disc without Myelopathy; Intervertebral Disc Disorder; Spondylosis without Myelopathy; Lumbosacral Spondylosis without Myelopathy; Lumbar Radiculopathy; Spinal Stenosis of Lumbar Region; Myofascial Pain; Inflammation of Sacroiliac Joint Tea Spangler [employer]: [address] [address], [facility] [place] [address], Ph. 04/24/2020 Degeneration of Lumbar Intervertebral Disc; Degeneration of Lumbosacral Intervertebral Disc; Displacement of Lumbar Intervertebral Disc without Myelopathy; Intervertebral Disc Disorder; Spondylosis without Myelopathy; Lumbosacral Spondylosis without Myelopathy; Lumbar Radiculopathy; Spinal Stenosis of Lumbar Region; Myofascial Pain; Inflammation of Sacroiliac Joint Tea Spangler [employer]: [address] [address], Ph. 04/12/2020 Inflammation of Sacroiliac Joint; Degeneration of Lumbar Intervertebral Disc; Degeneration of Lumbosacral Intervertebral Disc; Displacement of Lumbar Intervertebral Disc without Myelopathy; Intervertebral Disc Disorder; Spondylosis without Myelopathy; Lumbosacral Spondylosis without Myelopathy; Lumbar Radiculopathy; Spinal Stenosis of Lumbar Region; Myofascial Pain Juaquin Jacques MD: [address] [address], [place] [address], Ph. 04/07/2020 Pre-surgery Testing Juaquin Jacques MD: [address] [address], [facility] [place] [address], Ph. 02/07/2020 Degeneration of Lumbar Intervertebral Disc; Degeneration of Lumbosacral Intervertebral Disc; Displacement of Lumbar Intervertebral Disc without Myelopathy; Intervertebral Disc Disorder; Spondylosis without Myelopathy; Lumbosacral Spondylosis without Myelopathy; Lumbar Radiculopathy; Spinal Stenosis of Lumbar Region; Myofascial Pain; Inflammation of Sacroiliac Joint Tea Becca Spangler, [employer]: [address] [address], [place] [address], Ph. 01/24/2020 Lumbar Radiculopathy; Spinal Stenosis of Lumbar Region; Degeneration of Lumbar Intervertebral Disc; Degeneration of Lumbosacral Intervertebral Disc; Displacement of Lumbar Intervertebral Disc without Myelopathy; Intervertebral Disc Disorder; Spondylosis without Myelopathy; Lumbosacral Spondylosis without Myelopathy; Myofascial Pain; Inflammation of Sacroiliac Joint Juaquin Jacques MD: [id number] [address], [facility] [place] [address], Ph. 01/06/2020 Degeneration of Lumbar Intervertebral Disc; Degeneration of Lumbosacral Intervertebral Disc; Displacement of Lumbar Intervertebral Disc without Myelopathy; Intervertebral Disc Disorder; Spondylosis without Myelopathy; Lumbosacral Spondylosis without Myelopathy; Lumbar Radiculopathy; Spinal Stenosis of Lumbar Region; Myofascial Pain; Inflammation of Sacroiliac Joint Tea Abhinavongsonnancy Spangler, RUG [employer]TER [employer]: [address] [address], [facility] [place] [address], Ph. 12/31/2019 Lumbar Radiculopathy; Spinal Stenosis of Lumbar Region; Degeneration of Lumbar Intervertebral Disc; Degeneration of Lumbosacral Intervertebral Disc; Displacement of Lumbar Intervertebral Disc without Myelopathy; Intervertebral Disc Disorder; Spondylosis without Myelopathy; Lumbosacral Spondylosis without Myelopathy; Myofascial Pain; Inflammation of Sacroiliac Joint Juaquin Jacques MD: [address], [address], [place] [address], Ph. 12/30/2019 Degeneration of Lumbar Intervertebral Disc; Degeneration of Lumbosacral Intervertebral Disc; Displacement of Lumbar Intervertebral Disc without Myelopathy; Intervertebral Disc Disorder; Spondylosis without Myelopathy; Lumbosacral Spondylosis without Myelopathy; Lumbar Radiculopathy; Spinal Stenosis of Lumbar Region; Myofascial Pain; Inflammation of Sacroiliac Joint Tea Spangler NP: [address], [place] [address], Ph. Social History Tobacco Smoking Status Heavy Tobacco Smoker (1/2 pack per a day) Vaccine List None recorded. Plan of Care Reminders Provider Appointments None recorded. Lab None recorded. Referral None recorded. Procedures None recorded. Surgeries None recorded. Imaging None recorded. Vitals 05/17/2021 11:00AM FOLLOW-UP Height Blood Pressure 5 ft 5 in 120/80 mm[Hg] 04/10/2021 10:45AM FOLLOW-UP Height Blood Pressure 5 ft 5 in 129/92 mm[Hg] 03/20/2021 08:15AM FOLLOW-UP Height Blood Pressure 5 ft 5 in 118/73 mm[Hg] 04/12/2020 01:30PM Sacroiliac joint injection Height 5 ft 5 in 02/07/2020 11:15AM FOLLOW-UP Height Blood Pressure 5 ft 5 in 152/92 mm[Hg] 01/06/2020 01:30PM FOLLOW-UP Height Weight BMI Blood Pressure 5 ft 5 in 225 lbs 37.4 kg/m2 128/77 mm[Hg] 12/30/2019 11:30AM NEW PATIENT Height Weight BMI Blood Pressure 5 ft 5 in 225 lbs 37.4 kg/m2 131/76 mm[Hg]
--- OUTSIDE RECORDS SUMMARY | 2021-10-31 07:05 | CCD ---
Author Author [facility] Organization [facility] Address Unknown Phone Unavailable Care Team Providers Care Receiving Specialist Name Role Phone Maggie COLLINS MD Unavailable Unavailable Maggie COLLINS MD Unavailable Unavailable Maggie COLLINS MD Unavailable Unavailable Maggie COLLINS MD Unavailable Unavailable Maggie COLLINS MD Unavailable Unavailable Maggie COLLINS MD Unavailable Unavailable Maggie COLLINS MD Unavailable Unavailable Maggie COLLINS MD Unavailable Unavailable Maggie COLLINS MD Unavailable Unavailable Maggie COLLINS MD Unavailable Unavailable Maggie COLLINS MD Unavailable Unavailable Maggie COLLINS MD Unavailable Unavailable Maggie COLLINS MD Unavailable Unavailable Maggie COLLINS MD Unavailable Unavailable Maggie COLLINS MD Unavailable Unavailable Maggie COLLINS MD Unavailable Unavailable Maggie COLLINS MD Unavailable Unavailable Maggie COLLINS MD Unavailable Unavailable Maggie COLLINS MD Unavailable Unavailable Maggie COLLINS MD Unavailable Unavailable Maggie COLLINS MD Unavailable Unavailable Maggie COLLINS MD Unavailable Unavailable Maggie COLLINS MD Unavailable Unavailable Maggie COLLINS MD Unavailable Unavailable Maggie COLLINS MD Unavailable Unavailable Maggie COLLINS MD Unavailable Unavailable Maggie COLLINS MD Unavailable Unavailable Maggie COLLINS MD Unavailable Unavailable Maggie COLLINS MD Unavailable Unavailable Maggie COLLINS MD Unavailable Unavailable Maggie COLLINS MD Unavailable Unavailable Maggie COLLINS MD Unavailable Unavailable Maggie COLLINS MD Unavailable Unavailable LOLITA, Maggie COLLINS MD Unavailable Unavailable LOLITA, Maggie COLLINS MD Unavailable Unavailable LOLITA, Maggie COLLINS MD Unavailable Unavailable LOLITA, Maggie COLLINS MD Unavailable Unavailable LOLITA, Maggie COLLINS MD Unavailable Unavailable LOLITA, Maggie COLLINS MD Unavailable Unavailable LOLITA, Maggie COLLINS MD Unavailable Unavailable LOLITA, Maggie COLLINS MD Unavailable Unavailable LOLITA, Maggie COLLINS MD Unavailable Unavailable LOLITA, Maggie COLLINS MD Unavailable Unavailable LOLITA, Maggie COLLINS MD Unavailable Unavailable LOLITA, Maggie COLLINS MD Unavailable Unavailable LOLITA, Maggie COLLINS MD Unavailable Unavailable LOLITA, Maggie COLLINS MD Unavailable Unavailable LOLITA, Maggie COLLINS MD Unavailable Unavailable LOLITA, Maggie COLLINS MD Unavailable Unavailable LOLITA, Maggie COLLINS MD Unavailable Unavailable LOLITA, Maggie COLLINS MD Unavailable Unavailable LOLITA, Maggie COLLINS MD Unavailable Unavailable LOLITA, Maggie COLLINS MD Unavailable Unavailable LOLITA, Maggie COLLINS MD Unavailable Unavailable LOLITA, Maggie COLLINS MD Unavailable Unavailable LOLITA, Maggie COLLINS MD Unavailable Unavailable LOLITA, Maggie COLLINS MD Unavailable Unavailable LOLITA, Maggie COLLINS MD Unavailable Unavailable LOLITA, Maggie COLLINS MD Unavailable Unavailable LOLITA, Maggie COLLINS MD Unavailable Unavailable LOLITA, Maggie COLLINS MD Unavailable Unavailable LOLITA, Maggie COLLINS MD Unavailable Unavailable LOLITA, Maggie COLLINS MD Unavailable Unavailable LOLITA, Maggie COLLINS MD Unavailable Unavailable LOLITA, Maggie COLLINS MD Unavailable Unavailable LOLITA, Maggie COLLINS MD Unavailable Unavailable LOLITA, Maggie COLLINS MD Unavailable Unavailable LOLITA, Maggie COLLINS MD Unavailable Unavailable LOLITA, Maggie COLLINS MD Unavailable Unavailable LOLITA, Maggie COLLINS MD Unavailable Unavailable LOLITA, Maggie COLLINS MD Unavailable Unavailable LOLITA, Maggie COLLINS MD Unavailable Unavailable LOLITA, Maggie COLLINS MD Unavailable Unavailable LOLITA, Maggie COLLINS MD Unavailable Unavailable LOLITA, Maggie COLLINS MD Unavailable Unavailable LOLITA, Maggie COLLINS MD Unavailable Unavailable LOLITA, Maggie COLLINS MD Unavailable Unavailable LOLITA, Maggie COLLINS MD Unavailable Unavailable LOLITA, Maggie COLLINS MD Unavailable Unavailable LOLITA, Maggie COLLINS MD Unavailable Unavailable LOLITA, Maggie COLLINS MD Unavailable Unavailable LOLITA, Maggie COLLINS MD Unavailable Unavailable LOLITA, Maggie CLOLINS MD Unavailable Unavailable LOLITA, Maggie COLLINS MD Unavailable Unavailable LOLITA, Maggie COLLINS MD Unavailable Unavailable LOLITA, Maggie COLLINS MD Unavailable Unavailable LOLITA, Maggie COLLINS MD Unavailable Unavailable LOLITA, Maggie COLLINS MD Unavailable Unavailable LOLITA, Maggie COLLINS MD Unavailable Unavailable LOLITA, Maggie COLLINS MD Unavailable Unavailable LOLITA, Maggie COLLINS MD Unavailable Unavailable LOLITA, Maggie COLLINS MD Unavailable Unavailable LOLITA, Maggie COLLINS MD Unavailable Unavailable LOLITA, Maggie COLLINS MD Unavailable Unavailable LOLITA, Maggie COLLINS MD Unavailable Unavailable LOLITA, Maggie COLLINS MD Unavailable Unavailable LOLITA, Maggie COLLINS MD Unavailable Unavailable LOLITA, Maggie COLLINS MD Unavailable Unavailable LOLITA, Maggie COLLINS MD Unavailable Unavailable LOLITA, Maggie COLLINS MD Unavailable Unavailable LOLITA, Maggie COLLINS MD Unavailable Unavailable Kelli, M Ava PA Unavailable Unavailable Kelli, M Ava PA Unavailable Unavailable Kelli, M Ava PA Unavailable Unavailable Kelli, M Ava PA Unavailable Unavailable Kelli, M Ava PA Unavailable Unavailable Kelli, M Ava PA Unavailable Unavailable Kelli, M Ava PA Unavailable Unavailable Kelli, M Ava PA Unavailable Unavailable Kelli, M Ava PA Unavailable Unavailable Kelli, M Ava PA Unavailable Unavailable Kelli, M Ava PA Unavailable Unavailable Kelli, M Ava PA Unavailable Unavailable Kelli, M Ava PA Unavailable Unavailable Kelli, M Ava PA Unavailable Unavailable Kelli, M Ava PA Unavailable Unavailable Kelli, M Ava PA Unavailable Unavailable Kelli, M Ava PA Unavailable Unavailable Kelli, M Ava PA Unavailable Unavailable Kelli, M Ava PA Unavailable Unavailable Kelli, M Ava PA Unavailable Unavailable Kelli, M Ava PA Unavailable Unavailable Kelli, M Ava PA Unavailable Unavailable Kelli, M Ava PA Unavailable Unavailable Kelli, M Ava PA Unavailable Unavailable Kelli, M Ava PA Unavailable Unavailable Kelli, M Ava PA Unavailable Unavailable Kelli, M Ava PA Unavailable Unavailable Kelli, M Ava PA Unavailable Unavailable Kelli, M Ava PA Unavailable Unavailable Kelli, M Ava PA Unavailable Unavailable Kelli, M Ava PA Unavailable Unavailable Kelli, M Ava PA Unavailable Unavailable Kelli, M Ava PA Unavailable Unavailable Kelli, M Ava PA Unavailable Unavailable Kelli, M Ava PA Unavailable Unavailable Kelli, M Ava PA Unavailable Unavailable Kelli, M Ava PA Unavailable Unavailable Kelli, M Ava PA Unavailable Unavailable Kelli, M Ava PA Unavailable Unavailable Kelli, M Ava PA Unavailable Unavailable Kelli, M Ava PA Unavailable Unavailable Kelli, M Ava PA Unavailable Unavailable Kelli, M Ava PA Unavailable Unavailable Kelli, M Ava PA Unavailable Unavailable Kelli, M Ava PA Unavailable Unavailable Kelli, M Ava PA Unavailable Unavailable Kelli, M Ava PA Unavailable Unavailable Pam Desai Unavailable Unavailable Mahapatra, Hermilo DO Unavailable Unavailable Mahapatra, Hermilo DO Unavailable Unavailable Mahapatra, Hermilo DO Unavailable Unavailable Mahapatra, Hermilo DO Unavailable Unavailable Mahapatra, Hermilo DO Unavailable Unavailable Mahapatra, Hermilo DO Unavailable Unavailable Mahapatra, Hermilo DO Unavailable Unavailable Mahapatra, Hermilo DO Unavailable Unavailable Mahapatra, Hermilo DO Unavailable Unavailable Mahapatra, Hermilo DO Unavailable Unavailable Mahapatra, Hermilo DO Unavailable Unavailable Mahapatra, Hermilo DO Unavailable Unavailable Mahapatra, Hermilo DO Unavailable Unavailable Mahapatra, Hermilo DO Unavailable Unavailable Mahapatra, Hermilo DO Unavailable Unavailable Mahapatra, Hermilo DO Unavailable Unavailable Mahapatra, Hermilo DO Unavailable Unavailable Mahapatra, Hermilo DO Unavailable Unavailable Mahapatra, Hermilo DO Unavailable Unavailable Mahapatra, Hermilo DO Unavailable Unavailable Mahapatra, Hermilo DO Unavailable Unavailable Mahapatra, Hermilo DO Unavailable Unavailable Mahapatra, Hermilo DO Unavailable Unavailable Mahapatra, Hermilo DO Unavailable Unavailable Mahapatra, Hermilo DO Unavailable Unavailable Mahapatra, Hermilo DO Unavailable Unavailable Mahapatra, Hermilo DO Unavailable Unavailable Mahapatra, Hermilo DO Unavailable Unavailable Mahapatra, Hermilo DO Unavailable Unavailable Mahapatra, Hermilo DO Unavailable Unavailable Mahapatra, Hermilo DO Unavailable Unavailable Mahapatra, Hermilo DO Unavailable Unavailable Mahapatra, Hermilo DO Unavailable Unavailable Mahapatra, Hermilo DO Unavailable Unavailable Mahapatra, Hermilo DO Unavailable Unavailable Mahapatra, Hermilo DO Unavailable Unavailable Mahapatra, Hermilo DO Unavailable Unavailable Mahapatra, Hermilo DO Unavailable Unavailable Mahapatra, Hemrilo DO Unavailable Unavailable Carson, R Nelly FISHER HAND LINE Unavailable Unavailable Carson, R Nelly FISHER HAND LINE Unavailable Unavailable Carson, R Nelly FISHER HAND LINE Unavailable Unavailable Carson, R Nelly FISHER HAND LINE Unavailable Unavailable Carson, R Nelly FISHER HAND LINE Unavailable Unavailable Carson, R Nelly FISHER HAND LINE Unavailable Unavailable Carson, R Nelly FISHER HAND LINE Unavailable Unavailable Carson, R Nelly FISHER HAND LINE Unavailable Unavailable Carson, R Nelly FISHER HAND LINE Unavailable Unavailable Carson, R Nelly FISHER HAND LINE Unavailable Unavailable Carson, R Nelly FISHER HAND LINE Unavailable Unavailable Jumalon, M Tea PIE DOUGH ROLLER Unavailable Unavailable Jumalon, M Tea PIE DOUGH ROLLER Unavailable Unavailable Jumalon, M Tea PIE DOUGH ROLLER Unavailable Unavailable Jumalon, M Tea PIE DOUGH ROLLER Unavailable Unavailable Jumalon, M Tea PIE DOUGH ROLLER Unavailable Unavailable Jumalon, M Tea PIE DOUGH ROLLER Unavailable Unavailable Jumalon, M Tea PIE DOUGH ROLLER Unavailable Unavailable Jumalon, M Tea PIE DOUGH ROLLER Unavailable Unavailable Jumalon, M Tea PIE DOUGH ROLLER Unavailable Unavailable Jumalon, M Tea PIE DOUGH ROLLER Unavailable Unavailable Jumalon, M Tea PIE DOUGH ROLLER Unavailable Unavailable Jumalon, M Tea PIE DOUGH ROLLER Unavailable Unavailable Jumalon, M Tea PIE DOUGH ROLLER Unavailable Unavailable Jumalon, M Tea PIE DOUGH ROLLER Unavailable Unavailable Jumalon, M Tea PIE DOUGH ROLLER Unavailable Unavailable Jumalon, M Tea PIE DOUGH ROLLER Unavailable Unavailable Jumalon, M Tea PIE DOUGH ROLLER Unavailable Unavailable Jumalon, M Tea PIE DOUGH ROLLER Unavailable Unavailable Jumalon, M Tea PIE DOUGH ROLLER Unavailable Unavailable Jumalon, M Tea PIE DOUGH ROLLER Unavailable Unavailable Jumalon, M Tea PIE DOUGH ROLLER Unavailable Unavailable Jumalon, M Tea PIE DOUGH ROLLER Unavailable Unavailable Jumalon, M Tea PIE DOUGH ROLLER Unavailable Unavailable Jumalon, M Tea PIE DOUGH ROLLER Unavailable Unavailable Jumalon, M Tea PIE DOUGH ROLLER Unavailable Unavailable Jumalon, M Tea PIE DOUGH ROLLER Unavailable Unavailable Jumalon, M Tea PIE DOUGH ROLLER Unavailable Unavailable Jumalon, M Tea PIE DOUGH ROLLER Unavailable Unavailable Jumalon, M Tea PIE DOUGH ROLLER Unavailable Unavailable Jumalon, M Tea PIE DOUGH ROLLER Unavailable Unavailable Maggie COLLINS MD Unavailable Unavailable Maggie COLLINS MD Unavailable Unavailable Maggie COLLINS MD Unavailable Unavailable Maggie COLLINS MD Unavailable Unavailable Maggie COLLINS MD Unavailable Unavailable Maggie COLLINS MD Unavailable Unavailable Maggie COLLINS MD Unavailable Unavailable Maggie COLLINS MD Unavailable Unavailable Maggie COLLINS MD Unavailable Unavailable Maggie COLLINS MD Unavailable Unavailable Maggie COLLINS MD Unavailable Unavailable Maggie COLLINS MD Unavailable Unavailable Maggie COLLINS MD Unavailable Unavailable Maggie COLLINS MD Unavailable Unavailable Maggie COLLINS MD Unavailable Unavailable Maggie COLLINS MD Unavailable Unavailable Maggie COLLINS MD Unavailable Unavailable Maggie COLLINS MD Unavailable Unavailable Maggie COLLINS MD Unavailable Unavailable Maggie COLLINS MD Unavailable Unavailable LOLITA, Maggie COLLINS MD Unavailable Unavailable LOLITA, Maggie COLLINS MD Unavailable Unavailable LOLITA, Maggie COLLINS MD Unavailable Unavailable LOLITA, Maggie COLLINS MD Unavailable Unavailable LOLITA, Maggie COLLINS MD Unavailable Unavailable LOLITA, Maggie COLLINS MD Unavailable Unavailable LOLITA, Maggie COLLINS MD Unavailable Unavailable LOLITA, Maggie COLLINS MD Unavailable Unavailable LOLITA, Maggie COLLINS MD Unavailable Unavailable LOLITA, Maggie COLLINS MD Unavailable Unavailable LOLITA, Maggie COLLINS MD Unavailable Unavailable LOLITA, Maggie COLLINS MD Unavailable Unavailable LOLITA, Maggie COLLINS MD Unavailable Unavailable LOLITA, Maggie COLLINS MD Unavailable Unavailable LOLITA, Maggie COLLINS MD Unavailable Unavailable LOLITA, Maggie COLLINS MD Unavailable Unavailable LOLITA, Maggie COLLINS MD Unavailable Unavailable LOLITA, Maggie COLLINS MD Unavailable Unavailable LOLITA, Maggie COLLINS MD Unavailable Unavailable LOLITA, Maggie COLLINS MD Unavailable Unavailable LOLITA, Maggie COLLINS MD Unavailable Unavailable LOLITA, Maggie COLLINS MD Unavailable Unavailable LOLITA, Maggie COLLINS MD Unavailable Unavailable LOLITA, Maggie COLLINS MD Unavailable Unavailable LOLITA, Maggie COLLINS MD Unavailable Unavailable LOLITA, Maggie COLLINS MD Unavailable Unavailable LOLITA, Maggie COLLINS MD Unavailable Unavailable LOLITA, Maggie COLLINS MD Unavailable Unavailable LOLITA, Maggie COLLINS MD Unavailable Unavailable LOLITA, Maggie COLLINS MD Unavailable Unavailable LOLITA, Maggie COLLINS MD Unavailable Unavailable LOLITA, Maggie COLLINS MD Unavailable Unavailable LOLITA, Maggie COLLINS MD Unavailable Unavailable LOLITA, Maggie COLLINS MD Unavailable Unavailable LOLITA, Maggie COLLINS MD Unavailable Unavailable LOLITA, Maggie COLLINS MD Unavailable Unavailable LOLITA, Maggie COLLINS MD Unavailable Unavailable LOLITA, Maggie COLLINS MD Unavailable Unavailable LOLITA, Maggie COLLINS MD Unavailable Unavailable LOLITA, Maggie COLLINS MD Unavailable Unavailable LOLITA, Maggie COLLINS MD Unavailable Unavailable LOLITA, Maggie COLLINS MD Unavailable Unavailable LOLITA, Maggie COLLINS MD Unavailable Unavailable LOLITA, Maggie COLLINS MD Unavailable Unavailable LOLITA, Maggie COLLINS MD Unavailable Unavailable LOLITA, Maggie COLLINS MD Unavailable Unavailable LOLITA, Maggie COLLINS MD Unavailable Unavailable LOLITA, Maggie COLLINS MD Unavailable Unavailable LOLITA, Maggie COLLINS MD Unavailable Unavailable LOLITA, Maggie COLLINS MD Unavailable Unavailable LOLITA, Maggie COLLINS MD Unavailable Unavailable LOLITA, Maggie COLLINS MD Unavailable Unavailable LOLITA, Maggie COLLINS MD Unavailable Unavailable LOLITA, Maggie COLLINS MD Unavailable Unavailable LOLITA, Maggie COLLINS MD Unavailable Unavailable LOLITA, Maggie COLLINS MD Unavailable Unavailable LOLITA, Maggie COLLINS MD Unavailable Unavailable LOLITA, Maggie COLLINS MD Unavailable Unavailable LOLITA, Maggie COLLINS MD Unavailable Unavailable LOLITA, Maggie COLLINS MD Unavailable Unavailable LOLITA, Maggie COLLINS MD Unavailable Unavailable LOLITA, Maggie COLLINS MD Unavailable Unavailable LOLITA, Maggie COLLINS MD Unavailable Unavailable LOLITA, Maggie COLLINS MD Unavailable Unavailable LOLITA, Maggie COLLINS MD Unavailable Unavailable LOLITA, Maggie COLLINS MD Unavailable Unavailable LOLITA, Maggie COLLINS MD Unavailable Unavailable LOLITA, Maggie COLLINS MD Unavailable Unavailable LOLITA, Maggie COLLINS MD Unavailable Unavailable LOLITA, Maggie COLLINS MD Unavailable Unavailable LOLITA, Maggie COLILNS MD Unavailable Unavailable LOLITA, Maggie COLLINS MD Unavailable Unavailable LOLITA, Maggie COLLINS MD Unavailable Unavailable LOLITA, Maggie COLLINS MD Unavailable Unavailable LOLITA, Maggie COLLINS MD Unavailable Unavailable LOLITA, Maggie COLLINS MD Unavailable Unavailable LOLITA, Maggie COLLINS MD Unavailable Unavailable LOLITA, Maggie COLLINS MD Unavailable Unavailable LOLITA, Maggie COLLINS MD Unavailable Unavailable LOLITA, Maggie COLLINS MD Unavailable Unavailable LOLITA, Maggie COLLINS MD Unavailable Unavailable Tomaiuoli, JABARI Renetta ANP-C Unavailable tomaiuo YESSY PlascenciaE Renetta ANP-C Unavailable tomaiuo YESSY PlascenciaE Renetta ANP-C Unavailable tomaiuo YESSY PlascenciaE Renetta ANP-C Unavailable tomaiuo TomaiYESSY davisE Renetta ANP-C Unavailable tomaiuo Tomaiuodanyel JABARI Renetta ANP-C Unavailable tomaiuo JABARI Plascencia Renetta ANP-C Unavailable tomaiuo YESSY PlascenciaE Renetta ANP-C Unavailable tomaiuo JABARI Plascencia Renetta ANP-C Unavailable tomaiuo JABARI Plascencia Renetta ANP-C Unavailable tomaiuo YESSY PlascenciaE Renetta ANP-C Unavailable tomaiuo DimasuoYESSY montañoE Renetta ANP-C Unavailable tomaiuo YESSY PlascenciaE Renetta ANP-C Unavailable tomaiuo Temo JABARI Renetta ANP-C Unavailable tomaiuo YESSY PlascenciaE Renetta ANP-C Unavailable tomaiuo YESSY PlascenciaE Renetta ANP-C Unavailable tomaiuo YESSY PlascenciaE Renetta ANP-C Unavailable tomaiuo TomaiuoJABARI montaño Renetta ANP-C Unavailable tomaiuo RigoaiuoJABARI montaño Renetta ANP-C Unavailable tomaiuo TomaiuoJABARI montaño Renetta ANP-C Unavailable tomaiuo TomaiuoJABARI montaño Renetta ANP-C Unavailable tomaiuo TomaiuoJABARI montaño Renetta ANP-C Unavailable tomaiuo TomaiuoJABARI montaño Renetta ANP-C Unavailable tomaiuo TomaiuoJABARI montaño Renetta ANP-C Unavailable tomaiuo TomaiuoJABARI montaño Renetta ANP-C Unavailable tomaiuo TomaiuoJABARI montaño Renetta ANP-C Unavailable tomaiuo TomaiuoJABARI montaño Renetta ANP-C Unavailable tomaiuo TomaiuoJABARI montaño Renetta ANP-C Unavailable tomaiuo TomaiuoJABARI montaño Renetta ANP-C Unavailable tomaiuo DimasuoJABARI montaño Renetta ANP-C Unavailable tomaiuo JABARI Plascencia Renetta ANP-C Unavailable tomaiuo TomaiuoJABARI montaño Renetta ANP-C Unavailable tomaiuo JABARI Plascencia Renetta ANP-C Unavailable tomaiuo DimasuoJABARI montaño Renetta ANP-C Unavailable tomaiuo TomaiuoJABARI montaño Renetta ANP-C Unavailable tomaiuo DimasuoJABARI montaño Renetta ANP-C Unavailable tomaiuo DimasuoJABARI montaño Renetta ANP-C Unavailable tomaiuo TomaiuoJABARI montaño Renetta ANP-C Unavailable tomaiuo JABARI Plascencia Renetta ANP-C Unavailable tomaiuo JABARI Plascencia ANP-C Unavailable tomaiuo c@[facility] JABARI Plascencia ANP-C Unavailable tomaiuo c@[facility] WHITE (OAKES), N DILLON RPA-C Unavailable Unavailable WHITE (OAKES), N DILLON RPA-C Unavailable Unavailable WHITE (OAKES), N DILLON RPA-C Unavailable Unavailable WHITE (OAKES), N DILLON RPA-C Unavailable Unavailable WHITE (OAKES), N DILLON RPA-C Unavailable Unavailable WHITE (OAKES), N DILLON RPA-C Unavailable Unavailable WHITE (OAKES), N DILLON RPA-C Unavailable Unavailable WHITE (OAKES), N DILLON RPA-C Unavailable Unavailable WHITE (OAKES), N DILLON RPA-C Unavailable Unavailable WHITE (OAKES), N DILLON RPA-C Unavailable Unavailable WHITE (OAKES), N DILLON RPA-C Unavailable Unavailable WHITE (OAKES), N DILLON RPA-C Unavailable Unavailable WHITE (OAKES), N DILLON RPA-C Unavailable Unavailable WHITE (OAKES), N DILLON RPA-C Unavailable Unavailable WHITE (OAKES), N DILLON RPA-C Unavailable Unavailable WHITE (OAKES), N DILLON RPA-C Unavailable Unavailable WHITE (OAKES), N DILLON RPA-C Unavailable Unavailable WHITE (OAKES), N DILLON RPA-C Unavailable Unavailable WHITE (OAKES), N DILLON RPA-C Unavailable Unavailable WHITE (OAKES), N DILLON RPA-C Unavailable Unavailable WHITE (OAKES), N DILLON RPA-C Unavailable Unavailable WHITE (OAKES), N DILLON RPA-C Unavailable Unavailable WHITE (OAKES), N DILLON RPA-C Unavailable Unavailable WHITE (OAKES), N DILLON RPA-C Unavailable Unavailable WHITE (OAKES), N DILLON RPA-C Unavailable Unavailable WHITE (OAKES), N DILLON RPA-C Unavailable Unavailable WHITE (OAKES), N DILLON RPA-C Unavailable Unavailable WHITE (OAKES), N DILLON RPA-C Unavailable Unavailable WHITE (OAKES), N DILLON RPA-C Unavailable Unavailable WHITE (OAKES), N DILLON RPA-C Unavailable Unavailable WHITE (OAKES), N DILLON RPA-C Unavailable Unavailable WHITE (OAKES), N DILLON RPA-C Unavailable Unavailable WHITE (OAKES), N DILLON RPA-C Unavailable Unavailable WHITE (OAKES), N DILLON RPA-C Unavailable Unavailable WHITE (OAKES), N DILLON RPA-C Unavailable Unavailable WHITE (OAKES), N DILLON RPA-C Unavailable Unavailable WHITE (OAKES), N DILLON RPA-C Unavailable Unavailable WHITE (OAKES), N DILLON RPA-C Unavailable Unavailable WHITE (OAKES), N DILLON RPA-C Unavailable Unavailable WHITE (OAKES), N DILLON RPA-C Unavailable Unavailable WHITE (OAKES), N DILLON RPA-C Unavailable Unavailable WHITE (OAKES), N DILLON RPA-C Unavailable Unavailable WHITE (OAKES), N DILLON RPA-C Unavailable Unavailable WHITE (OAKES), N DILLON RPA-C Unavailable Unavailable WHITE (OAKES), N DILLON RPA-C Unavailable Unavailable WHITE (OAKES), N DILLON RPA-C Unavailable Unavailable WHITE (OAKES), N DILLON RPA-C Unavailable Unavailable WHITE (OAKES), N DILOLN RPA-C Unavailable Unavailable WHITE (OAKES), N DILLON RPA-C Unavailable Unavailable WHITE (OAKES), N DILLON RPA-C Unavailable Unavailable WHITE (OAKES), N DILLON RPA-C Unavailable Unavailable WHITE (OAKES), N DILLON RPA-C Unavailable Unavailable WHITE (OAKES), N DILLON RPA-C Unavailable Unavailable WHITE (OAKES), N DILLON RPA-C Unavailable Unavailable WHITE (OAKES), N DILLON RPA-C Unavailable Unavailable WHITE (OAKES), N DILLON RPA-C Unavailable Unavailable WHITE (OAKES), N DILLON RPA-C Unavailable Unavailable WHITE (OAKES), N DILLON RPA-C Unavailable Unavailable WHITE (OAKES), N DILLON RPA-C Unavailable Unavailable JACOB, ROMERO PA-C Unavailable Unavailable JACOB, ROMERO PA-C Unavailable Unavailable JACOB, ROMERO PA-C Unavailable Unavailable JACOB, ROMERO PA-C Unavailable Unavailable JACOB, ROMERO PA-C Unavailable Unavailable JACOB, ROMERO PA-C Unavailable Unavailable JACOB, ROMERO PA-C Unavailable Unavailable JACOB, ROMERO PA-C Unavailable Unavailable JACOB, ROMERO PA-C Unavailable Unavailable JACOB, ROMERO PA-C Unavailable Unavailable JACOB, ROMERO PA-C Unavailable Unavailable JACOB, ROMERO PA-C Unavailable Unavailable JACOB, ROMERO PA-C Unavailable Unavailable JACOB, ROMERO PA-C Unavailable Unavailable JACOB, ROMERO PA-C Unavailable Unavailable JACOB, ROMERO PA-C Unavailable Unavailable JACOB, ROMERO PA-C Unavailable Unavailable JACOB, ROMERO PA-C Unavailable Unavailable JACOB, ROMERO PA-C Unavailable Unavailable JACOB, ROMERO PA-C Unavailable Unavailable JACOB, ROMERO PA-C Unavailable Unavailable JACOB, ROMERO PA-C Unavailable Unavailable JACOB, ROMERO PA-C Unavailable Unavailable JACOB, ROMERO PA-C Unavailable Unavailable JACOB, ROMERO PA-C Unavailable Unavailable JACOB, ROMERO PA-C Unavailable Unavailable JACOB, ROMERO PA-C Unavailable Unavailable JACOB, ROMERO PA-C Unavailable Unavailable JACOB, ROMERO PA-C Unavailable Unavailable JACOB, ROMERO PA-C Unavailable Unavailable JACOB, ROMERO PA-C Unavailable Unavailable JACOB, ROMERO PA-C Unavailable Unavailable JACOB, ROMERO PA-C Unavailable Unavailable JACOB, ROMERO PA-C Unavailable Unavailable JACOB, ROMERO PA-C Unavailable Unavailable Isidro Jacques MD Unavailable Unavailable Isidro Jacques MD Unavailable Unavailable Isidro Jacques MD Unavailable Unavailable Isidro Jacques MD Unavailable Unavailable Isidro Jacques MD Unavailable Unavailable Isidro Jacques MD Unavailable Unavailable Isidro Jacques MD Unavailable Unavailable Isidro Jacques MD Unavailable Unavailable Isidro Jacques MD Unavailable Unavailable Isidro Jacques MD Unavailable Unavailable Isidro Jacques MD Unavailable Unavailable Isidro Jacques MD Unavailable Unavailable Isidro Jacques MD Unavailable Unavailable Isidro Jacques MD Unavailable Unavailable Isidro Jacques MD Unavailable Unavailable Isidro Jacques MD Unavailable Unavailable Isidro Jacques MD Unavailable Unavailable Isidro Jacques MD Unavailable Unavailable Isidro Jacques MD Unavailable Unavailable Isidro Jacques MD Unavailable Unavailable BolIsidro rogers MD Unavailable Unavailable Isidro Jacques MD Unavailable Unavailable BolIsidro rogers MD Unavailable Unavailable BolIsidro rogers MD Unavailable Unavailable BolIsidro rogers MD Unavailable Unavailable Isidro Jacques MD Unavailable Unavailable BolIsidro rogers MD Unavailable Unavailable BolIsidro rogers MD Unavailable Unavailable BolIsidro rogers MD Unavailable Unavailable BolIsidro rogers MD Unavailable Unavailable BolIsidro rogers MD Unavailable Unavailable BolIsidro rogers MD Unavailable Unavailable BolIsidro rogers MD Unavailable Unavailable BolIsidro rogers MD Unavailable Unavailable BolIsidro rogers MD Unavailable Unavailable BolIsidro rogers MD Unavailable Unavailable Isidro Jacques MD Unavailable Unavailable Isidro Jacques MD Unavailable Unavailable Isidro Jacques MD Unavailable Unavailable BolIsidro rogers MD Unavailable Unavailable Isidro Jacques MD Unavailable Unavailable Isidro Jacques MD Unavailable Unavailable Isidro Jacques MD Unavailable Unavailable Isidro Jacques MD Unavailable Unavailable Isidro Jacques MD Unavailable Unavailable BolIsidro rogers MD Unavailable Unavailable Isidro Jacques MD Unavailable Unavailable BolIsidro rogers MD Unavailable Unavailable Isidro Jacques MD Unavailable Unavailable Feola, T Graciela PA Unavailable Unavailable Feola, T Graciela PA Unavailable Unavailable Feola, T Graciela PA Unavailable Unavailable Feola, T Graciela PA Unavailable Unavailable Feola, T Graciela PA Unavailable Unavailable Feola, T Graciela PA Unavailable Unavailable Feola, T Graciela PA Unavailable Unavailable Feola, T Graciela PA Unavailable Unavailable Feola, T Graciela PA Unavailable Unavailable Feola, T Graciela PA Unavailable Unavailable Feola, T Graciela PA Unavailable Unavailable Feola, T Graciela PA Unavailable Unavailable Feola, T Graciela PA Unavailable Unavailable Feola, T Graciela PA Unavailable Unavailable Feola, T Graciela PA Unavailable Unavailable Feola, T Graciela PA Unavailable Unavailable Feola, T Graciela PA Unavailable Unavailable Feola, T Graciela PA Unavailable Unavailable Feola, T Graciela PA Unavailable Unavailable Feola, T Graciela PA Unavailable Unavailable Feola, T Graciela PA Unavailable Unavailable Feola, T Graciela PA Unavailable Unavailable Feola, T Graciela PA Unavailable Unavailable Feola, T Graciela PA Unavailable Unavailable Feola, T Graciela PA Unavailable Unavailable Feola, T Graciela PA Unavailable Unavailable Feola, T Graciela PA Unavailable Unavailable Feola, T Graciela PA Unavailable Unavailable Feola, T Graciela PA Unavailable Unavailable Feola, T Graciela PA Unavailable Unavailable Feola, T Graciela PA Unavailable Unavailable Feola, T Graciela PA Unavailable Unavailable Feola, T Graciela PA Unavailable Unavailable Feola, T Graciela PA Unavailable Unavailable Feola, T Graciela PA Unavailable Unavailable Feola, T Graciela PA Unavailable Unavailable Feola, T Graciela PA Unavailable Unavailable Feola, T Graciela PA Unavailable Unavailable Feola, T Graciela PA Unavailable Unavailable Feola, T Graciela PA Unavailable Unavailable Feola, T Graciela PA Unavailable Unavailable PHYSICIAN, PHYSICIAN ER Unavailable Unavailable Maggie COLLINS MD Unavailable Unavailable Maggie COLLINS MD Unavailable Unavailable Maggie COLLINS MD Unavailable Unavailable Maggie COLLINS MD Unavailable Unavailable Maggie COLLINS MD Unavailable Unavailable Maggie COLLINS MD Unavailable Unavailable Maggie COLLINS MD Unavailable Unavailable Maggie COLLINS MD Unavailable Unavailable Maggie COLLINS MD Unavailable Unavailable Maggie COLLINS MD Unavailable Unavailable Maggie COLLINS MD Unavailable Unavailable Maggie COLLINS MD Unavailable Unavailable Maggie COLLINS MD Unavailable Unavailable Maggie COLLINS MD Unavailable Unavailable Maggie COLLINS MD Unavailable Unavailable Maggie COLLINS MD Unavailable Unavailable Maggie COLLINS MD Unavailable Unavailable Maggie COLLINS MD Unavailable Unavailable Maggie COLLINS MD Unavailable Unavailable Maggie COLLINS MD Unavailable Unavailable Maggie COLLINS MD Unavailable Unavailable Maggie COLLINS MD Unavailable Unavailable Maggie COLLINS MD Unavailable Unavailable Maggie COLLINS MD Unavailable Unavailable Maggie COLLINS MD Unavailable Unavailable Maggie COLLINS MD Unavailable Unavailable Maggie COLLINS MD Unavailable Unavailable Maggie COLLINS MD Unavailable Unavailable Maggie COLLINS MD Unavailable Unavailable Maggie COLLINS MD Unavailable Unavailable Maggie COLLINS MD Unavailable Unavailable Maggie COLLINS MD Unavailable Unavailable Maggie COLLINS MD Unavailable Unavailable Maggie COLLINS MD Unavailable Unavailable Maggie COLLINS MD Unavailable Unavailable Maggie COLLINS MD Unavailable Unavailable Maggie COLLINS MD Unavailable Unavailable Maggie COLLINS MD Unavailable Unavailable Maggie COLLINS MD Unavailable Unavailable Maggie COLLINS MD Unavailable Unavailable Maggie COLLINS MD Unavailable Unavailable Maggie COLLINS MD Unavailable Unavailable Maggie COLLINS MD Unavailable Unavailable LOLITA, Maggie COLLINS MD Unavailable Unavailable LOLITA, Maggie COLLINS MD Unavailable Unavailable LOLITA, Maggie COLLINS MD Unavailable Unavailable LOLITA, Maggie COLLINS MD Unavailable Unavailable LOLITA, Maggie COLLINS MD Unavailable Unavailable LOLITA, Maggie COLLINS MD Unavailable Unavailable LOLITA, Maggie COLLINS MD Unavailable Unavailable LOLITA, Maggie COLLINS MD Unavailable Unavailable LOLITA, Maggie COLLINS MD Unavailable Unavailable LOLITA, Maggie COLLINS MD Unavailable Unavailable LOLITA, Maggie COLLINS MD Unavailable Unavailable LOLITA, Maggie COLLINS MD Unavailable Unavailable LOLITA, Maggie COLLINS MD Unavailable Unavailable LOLITA, Maggie COLLINS MD Unavailable Unavailable LOLITA, Maggie COLLINS MD Unavailable Unavailable LOLITA, Maggie COLLINS MD Unavailable Unavailable LOLITA, Maggie COLLINS MD Unavailable Unavailable LOLITA, Maggie COLLINS MD Unavailable Unavailable LOLITA, Maggie COLLINS MD Unavailable Unavailable LOLITA, Maggie COLLINS MD Unavailable Unavailable LOLITA, Maggie COLLINS MD Unavailable Unavailable LOLITA, Maggie COLLINS MD Unavailable Unavailable LOLITA, Maggie COLLINS MD Unavailable Unavailable LOLITA, Maggie COLLINS MD Unavailable Unavailable LOLITA, Maggie COLLINS MD Unavailable Unavailable LOLITA, Maggie COLLINS MD Unavailable Unavailable LOLITA, Maggie COLLINS MD Unavailable Unavailable LOLITA, Maggie COLLINS MD Unavailable Unavailable LOLITA, Maggie COLLINS MD Unavailable Unavailable LOLITA, Maggie COLLINS MD Unavailable Unavailable LOLITA, Maggie COLLINS MD Unavailable Unavailable LOLITA, Maggie COLLINS MD Unavailable Unavailable LOLITA, Maggie COLLINS MD Unavailable Unavailable LOLITA, Maggie COLLINS MD Unavailable Unavailable LOLITA, Maggie COLLINS MD Unavailable Unavailable LOLITA, Maggie COLLINS MD Unavailable Unavailable LOLITA, Maggie COLLINS MD Unavailable Unavailable LOLITA, Maggie COLLINS MD Unavailable Unavailable LOLITA, Maggie COLLINS MD Unavailable Unavailable LOLITA, Maggie COLLINS MD Unavailable Unavailable LOLITA, Maggie COLLINS MD Unavailable Unavailable LOLITA, Maggie COLLINS MD Unavailable Unavailable LOLITA, Maggie COLLINS MD Unavailable Unavailable LOLITA, Maggie COLLINS MD Unavailable Unavailable LOLITA, Maggie COLLINS MD Unavailable Unavailable LOLITA, Maggie COLLINS MD Unavailable Unavailable LOLITA, Maggie COLLINS MD Unavailable Unavailable LOLITA, Maggie COLLINS MD Unavailable Unavailable LOLITA, Maggie COLLINS MD Unavailable Unavailable LOLITA, Maggie COLLINS MD Unavailable Unavailable LOLITA, Maggie COLLINS MD Unavailable Unavailable LOLITA, Maggie COLLINS MD Unavailable Unavailable LOLITA, Maggie COLLINS MD Unavailable Unavailable LOLITA, Maggie COLLINS MD Unavailable Unavailable LOLITA, Maggie COLLINS MD Unavailable Unavailable LOLITA, Maggie COLLINS MD Unavailable Unavailable LOLITA, Maggie COLLINS MD Unavailable Unavailable LOLITA, Maggie COLLINS MD Unavailable Unavailable LOLITA, Maggie COLLINS MD Unavailable Unavailable LOLITA, Maggie COLLINS MD Unavailable Unavailable LOLITA, Maggie COLLINS MD Unavailable Unavailable LOLITA, Maggie COLLINS MD Unavailable Unavailable LOLITA, Maggie COLLINS MD Unavailable Unavailable LOLITA, Maggie COLLINS MD Unavailable Unavailable LOLITA, Maggie COLLINS MD Unavailable Unavailable LOLITA, Maggie COLLINS MD Unavailable Unavailable LOLITA, Maggie COLLINS MD Unavailable Unavailable LOLITA, Maggie COLLINS MD Unavailable Unavailable LOLITA, Maggie COLLINS MD Unavailable Unavailable LOLITA, Maggie COLLINS MD Unavailable Unavailable LOLITA, Maggie COLLINS MD Unavailable Unavailable LOLITA, Maggie COLLINS MD Unavailable Unavailable LOLITA, Maggie COLLINS MD Unavailable Unavailable LOLITA, Maggie COLLINS MD Unavailable Unavailable LOLITA, Maggie COLLINS MD Unavailable Unavailable LOLITA, Maggie COLLINS MD Unavailable Unavailable LOLITA, Maggie COLLINS MD Unavailable Unavailable LOLITA, Maggie COLLINS MD Unavailable Unavailable LOLITA, Maggie COLLINS MD Unavailable Unavailable LOLITA, Maggie COLLINS MD Unavailable Unavailable LOLITA, Maggie COLLINS MD Unavailable Unavailable LOLITA, Maggie COLLINS MD Unavailable Unavailable LOLITA, Maggie COLLINS MD Unavailable Unavailable LOLITA, Maggie COLLINS MD Unavailable Unavailable LOLITA, Maggie COLLINS MD Unavailable Unavailable LOLITA, Maggie COLLINS MD Unavailable Unavailable LOLITA, Maggie COLLINS MD Unavailable Unavailable LOLITA, Maggie COLLINS MD Unavailable Unavailable LOLITA, Maggie COLLINS MD Unavailable Unavailable LOLITA, Maggie COLLINS MD Unavailable Unavailable LOLITA, Maggie COLLINS MD Unavailable Unavailable LOLITA, Maggie COLLINS MD Unavailable Unavailable LOLITA, Maggie COLLINS MD Unavailable Unavailable LOLITA, Maggie COLLINS MD Unavailable Unavailable LOLITA, Maggie COLLINS MD Unavailable Unavailable LOLITA, Maggie COLLINS MD Unavailable Unavailable LOLITA, Maggie COLLINS MD Unavailable Unavailable LOLITA, Maggie COLLINS MD Unavailable Unavailable LOLITA, Maggie COLLINS MD Unavailable Unavailable LOLITA, Maggie COLLINS MD Unavailable Unavailable LOLITA, Maggie COLLINS MD Unavailable Unavailable LOLITA, Maggie COLLINS MD Unavailable Unavailable LOLITA, Maggie COLLINS MD Unavailable Unavailable LOLITA, Maggie COLLINS MD Unavailable Unavailable LOLITA, Maggie COLLINS MD Unavailable Unavailable LOLITA, Maggie COLLINS MD Unavailable Unavailable LOLITA, Maggie COLLINS MD Unavailable Unavailable LOLITA, Maggie COLLINS MD Unavailable Unavailable LOLITA, Maggie COLLINS MD Unavailable Unavailable LOLITA, Maggie COLLINS MD Unavailable Unavailable LOLITA, Maggie COLLINS MD Unavailable Unavailable LOLITA, Maggie COLLINS MD Unavailable Unavailable LOLITA, Maggie COLLINS MD Unavailable Unavailable LOLITA, Maggie COLLINS MD Unavailable Unavailable LOLITA, Maggie COLLINS MD Unavailable Unavailable LOLITA, Maggie COLLINS MD Unavailable Unavailable LOLITA, Maggie COLLINS MD Unavailable Unavailable LOLITA, Maggie COLLINS MD Unavailable Unavailable LOLITA, Maggie COLLINS MD Unavailable Unavailable LOLITA, Maggie COLLINS MD Unavailable Unavailable LOLITA, Maggie COLLINS MD Unavailable Unavailable LOLITA, Maggie COLLINS MD Unavailable Unavailable LOLITA, Maggie COLLISN MD Unavailable Unavailable LOLITA, Maggie COLLINS MD Unavailable Unavailable LOLITA, Maggie COLLINS MD Unavailable Unavailable LOLITAMaggie CERVANTES MD Unavailable Unavailable LOLITAMaggie CERVANTES MD Unavailable Unavailable LOLITAMaggie CERVANTES MD Unavailable Unavailable LOLITAMaggie CERVANTES MD Unavailable Unavailable LOLITAMaggie CERVANTES MD Unavailable Unavailable LOLITAMaggie CERVANTES MD Unavailable Unavailable LOLITAMaggie CERVANTES MD Unavailable Unavailable LOLITAMaggie CERVANTES MD Unavailable Unavailable LOLITAMaggie CERVANTES MD Unavailable Unavailable LOLITAMaggie CERVANTES MD Unavailable Unavailable LOLITA, Maggie COLLINS MD Unavailable Unavailable LOLITA, Maggie COLLINS MD Unavailable Unavailable LOLITA, Maggie COLLINS MD Unavailable Unavailable LOLITAMaggie CERVANTES MD Unavailable Unavailable LOLITAMaggie CERVANTES MD Unavailable Unavailable LOLITAMaggie CERVANTES MD Unavailable Unavailable LOLITAMaggie CERVANTES MD Unavailable Unavailable LOLITA, Maggie COLLINS MD Unavailable Unavailable LOLITA, Maggie COLLINS MD Unavailable Unavailable LOLITA, Maggie COLLINS MD Unavailable Unavailable LOLITA, Maggie COLLINS MD Unavailable Unavailable LOLITA, Maggie COLLINS MD Unavailable Unavailable LOLITA, Maggie COLLINS MD Unavailable Unavailable LOLITAMaggie CERVANTES MD Unavailable Unavailable LOLITA, Maggie COLLINS MD Unavailable Unavailable LOLITA, Maggie COLLINS MD Unavailable Unavailable LOLITAMaggie CERVANTES MD Unavailable Unavailable LOLITA, Maggie COLLINS MD Unavailable Unavailable LOLITAMaggie CERVANTES MD Unavailable Unavailable LOLITAMaggie CERVANTES MD Unavailable Unavailable LOLITAMaggie CERVANTES MD Unavailable Unavailable LOLITAMaggie CERVANTES MD Unavailable Unavailable LOLITAMaggie CERVANTES MD Unavailable Unavailable LOLITAMaggie CERVANTES MD Unavailable Unavailable Aloi, M Yuri PIE DOUGH ROLLER Unavailable Unavailable Aloi, M Yuri PIE DOUGH ROLLER Unavailable Unavailable Aloi, M Yuri PIE DOUGH ROLLER Unavailable Unavailable Aloi, M Yuri PIE DOUGH ROLLER Unavailable Unavailable Aloi, M Yuri PIE DOUGH ROLLER Unavailable Unavailable Aloi, M Yuri PIE DOUGH ROLLER Unavailable Unavailable Aloi, M Yuri PIE DOUGH ROLLER Unavailable Unavailable Aloi, M Yuri PIE DOUGH ROLLER Unavailable Unavailable Aloi, M Yuri PIE DOUGH ROLLER Unavailable Unavailable Aloi, M Yuri PIE DOUGH ROLLER Unavailable Unavailable Aloi, M Yuri PIE DOUGH ROLLER Unavailable Unavailable Aloi, M Yuri PIE DOUGH ROLLER Unavailable Unavailable Aloi, M Yuri PIE DOUGH ROLLER Unavailable Unavailable Aloi, M Yuri PIE DOUGH ROLLER Unavailable Unavailable Aloi, M Yuri PIE DOUGH ROLLER Unavailable Unavailable Aloi, M Yuri PIE DOUGH ROLLER Unavailable Unavailable Aloi, M Yrui PIE DOUGH ROLLER Unavailable Unavailable Aloi, M Yuri PIE DOUGH ROLLER Unavailable Unavailable Aloi, M Yuri PIE DOUGH ROLLER Unavailable Unavailable Aloi, M Yuri PIE DOUGH ROLLER Unavailable Unavailable Aloi, M Yuri PIE DOUGH ROLLER Unavailable Unavailable Aloi, M Yuri PIE DOUGH ROLLER Unavailable Unavailable Aloi, M Yuri PIE DOUGH ROLLER Unavailable Unavailable Aloi, M Yuri PIE DOUGH ROLLER Unavailable Unavailable Aloi, M Yuri PIE DOUGH ROLLER Unavailable Unavailable Aloi, M Yuri PIE DOUGH ROLLER Unavailable Unavailable Aloi, M Yuri PIE DOUGH ROLLER Unavailable Unavailable Aloi, M Yuri PIE DOUGH ROLLER Unavailable Unavailable Aloi, M Yuri PIE DOUGH ROLLER Unavailable Unavailable Aloi, M Yuri PIE DOUGH ROLLER Unavailable Unavailable Aloi, M Yuri PIE DOUGH ROLLER Unavailable Unavailable Aloi, M Yuri PIE DOUGH ROLLER Unavailable Unavailable Aloi, M Yuri PIE DOUGH ROLLER Unavailable Unavailable Aloi, M Yuri PIE DOUGH ROLLER Unavailable Unavailable Aloi, M Yuri PIE DOUGH ROLLER Unavailable Unavailable Aloi, M Yuri PIE DOUGH ROLLER Unavailable Unavailable Aloi, M Yuri PIE DOUGH ROLLER Unavailable Unavailable Aloi, M Yuri PIE DOUGH ROLLER Unavailable Unavailable Aloi, M Yuri PIE DOUGH ROLLER Unavailable Unavailable Aloi, M Yuri PIE DOUGH ROLLER Unavailable Unavailable FRANCES RETANA DO Unavailable Unavailable FRANCES RETANA DO Unavailable Unavailable FRANCES RETANA DO Unavailable Unavailable FRANCES RETANA DO Unavailable Unavailable MAZIN FRANCES DO Unavailable Unavailable MAZIN FRANCES DO Unavailable Unavailable MAZIN FRANCES DO Unavailable Unavailable MAZIN FRANCES DO Unavailable Unavailable WHITE (OAKES), N DILLON RPA-C Unavailable Unavailable WHITE (OAKES), N DILLON RPA-C Unavailable Unavailable WHITE (OAKES), N DILLON RPA-C Unavailable Unavailable WHITE (OAKES), N DILLON RPA-C Unavailable Unavailable WHITE (OAKES), N DILLON RPA-C Unavailable Unavailable WHIET (OAKES), N DILLON RPA-C Unavailable Unavailable WHITE (OAKES), N DILLON RPA-C Unavailable Unavailable WHITE (OAKES), N DILLON RPA-C Unavailable Unavailable WHITE (OAKES), N DILLON RPA-C Unavailable Unavailable WHITE (OAKES), N DILLON RPA-C Unavailable Unavailable WHITE (OAKES), N DILLON RPA-C Unavailable Unavailable WHITE (OAKES), N DILLON RPA-C Unavailable Unavailable WHITE (OAKES), N DILLON RPA-C Unavailable Unavailable WHITE (OAKES), N DILLON RPA-C Unavailable Unavailable WHITE (OAKES), N DILLON RPA-C Unavailable Unavailable WHITE (OAKES), N DILLON RPA-C Unavailable Unavailable WHITE (OAKES), N DILLON RPA-C Unavailable Unavailable WHITE (OAKES), N DILLON RPA-C Unavailable Unavailable WHITE (OAKES), N DILLON RPA-C Unavailable Unavailable WHITE (OAKES), N DILLON RPA-C Unavailable Unavailable WHITE (OAKES), N DILLON RPA-C Unavailable Unavailable WHITE (OAKES), N DILLON RPA-C Unavailable Unavailable WHITE (OAKES), N DILLON RPA-C Unavailable Unavailable WHITE (OAKES), N DILLON RPA-C Unavailable Unavailable WHITE (OAKES), N DILLON RPA-C Unavailable Unavailable WHITE (OAKES), N DILLON RPA-C Unavailable Unavailable WHITE (OAKES), N DILLON RPA-C Unavailable Unavailable WHITE (OAKES), N DILLON RPA-C Unavailable Unavailable WHITE (OAKES), N DILLON RPA-C Unavailable Unavailable WHITE (OAKES), N DILLON RPA-C Unavailable Unavailable WHITE (OAKES), N DILLON RPA-C Unavailable Unavailable WHITE (OAKES), N DILLON RPA-C Unavailable Unavailable WHITE (OAKES), N DILLON RPA-C Unavailable Unavailable WHITE (OAKES), N DILLON RPA-C Unavailable Unavailable WHITE (OAKES), N DILLON RPA-C Unavailable Unavailable WHITE (OAKES), N DILLON RPA-C Unavailable Unavailable WHITE (OAKES), N DILLON RPA-C Unavailable Unavailable WHITE (OAKES), N DILLON RPA-C Unavailable Unavailable WHITE (OAKES), N DILLON RPA-C Unavailable Unavailable WHITE (OAKES), N DILLON RPA-C Unavailable Unavailable WHITE (OAKES), N DILLON RPA-C Unavailable Unavailable WHITE (OAKES), N DILLON RPA-C Unavailable Unavailable WHITE (OAKES), N DILLON RPA-C Unavailable Unavailable WHITE (OAKES), N DILLON RPA-C Unavailable Unavailable WHITE (OAKES), N DILLON RPA-C Unavailable Unavailable WHITE (OAKES), N DILLON RPA-C Unavailable Unavailable WHITE (OAKES), N DILLON RPA-C Unavailable Unavailable WHITE (OAKES), N DILLON RPA-C Unavailable Unavailable WHITE (OAKES), N DILLON RPA-C Unavailable Unavailable WHITE (OAKES), N DILLON RPA-C Unavailable Unavailable WHITE (OAKES), N DILLON RPA-C Unavailable Unavailable WHITE (OAKES), N DILLON RPA-C Unavailable Unavailable WHITE (OAKES), N DILLON RPA-C Unavailable Unavailable WHITE (OAKES), N DILLON RPA-C Unavailable Unavailable WHITE (OAKES), N DILLON RPA-C Unavailable Unavailable WHITE (OAKES), N DILLON RPA-C Unavailable Unavailable WHITE (OAKES), N DILLON RPA-C Unavailable Unavailable WHITE (OAKES), N DILLON RPA-C Unavailable Unavailable WHITE (OAKES), N DILLON RPA-C Unavailable Unavailable Caluwe, J Peter FISHER HAND LINE Unavailable Unavailable Caluwe, J Peter FISHER HAND LINE Unavailable Unavailable Caluwe, J Peter FISHER HAND LINE Unavailable Unavailable Caluwe, J Peter FISHER HAND LINE Unavailable Unavailable Caluwe, J Peter FISHER HAND LINE Unavailable Unavailable Caluwe, J Peter FISHER HAND LINE Unavailable Unavailable Caluwe, J Peter FISHER HAND LINE Unavailable Unavailable Caluwe, J Peter FISHER HAND LINE Unavailable Unavailable Caluwe, J Peter FISHER HAND LINE Unavailable Unavailable Caluwe, J Peter FISHER HAND LINE Unavailable Unavailable Caluwe, J Peter FISHER HAND LINE Unavailable Unavailable Caluwe, J Peter FISHER HAND LINE Unavailable Unavailable Caluwe, J Peter FISHER HAND LINE Unavailable Unavailable PHYSICIAN, ER Unavailable Unavailable Re-disclosure Warning The records that you are about to access may contain information from federally-assisted alcohol or drug abuse programs. If such information is present, then the following federally mandated warning applies: This information has been disclosed to you from records protected by federal confidentiality rules (42 CFR part 2). The federal rules prohibit you from making any further disclosure of this information unless further disclosure is expressly permitted by the written consent of the person to whom it pertains or as otherwise permitted by 42 CFR part 2. A general authorization for the release of medical or other information is NOT sufficient for this purpose. The Federal rules restrict any use of the information to criminally investigate or prosecute any alcohol or drug abuse patient.The records that you are about to access may contain highly sensitive health information, the redisclosure of which is protected by Article 27-F of the [facility] Public Health law. If you continue you may have access to information: Regarding HIV / AIDS; Provided by facilities licensed or operated by the [facility] Office of Mental Health; or Provided by the [facility] Office for People With Developmental Disabilities. If such information is present, then the following [facility] mandated warning applies: This information has been disclosed to you from confidential records which are protected by state law. State law prohibits you from making any further disclosure of this information without the specific written consent of the person to whom it pertains, or as otherwise permitted by law. Any unauthorized further disclosure in violation of state law may result in a fine or prison sentence or both. A general authorization for the release of medical or other information is NOT sufficient authorization for further disc losure. Allergies and Adverse Reactions Type Description Substance Reaction Status Data Source(s ) No Known Allergies NO KNOWN MEDICATION ALLERGIES NO KNOWN MEDICA TION ALLERGIES NDOC ([facility]) Family History Family Member Name Family Member Gender Family Member Status Date o f Status Description Data Source(s) Unknown Unknown Problem MEDENT ([facility] father Unknown Unknown Problem MEDENT ([facility] in their 30's, maternal side Unknown Unknown Problem MEDENT ([facility], ) Unknown Unknown Problem MEDENT ([facility], ) Unknown Unknown Problem MEDENT ([facility], ) Unknown Unknown Problem MEDENT ([facility], ) Unknown Unknown Problem MEDENT ([facility], ) Unknown Unknown Problem MEDENT ([facility], ) Unknown Unknown Problem MEDENT ([facility], ) Unknown Female Problem MEDENT ([facility] ) Encounters Encounter Providers Location Date Indications Data Source(s ) Outpatient Attender: Yuri GALARZA 11/19/2021 12:00:00 AM [facility] Outpatient Attender: ROMERO BLACKWELL-CReferrer: COLT COLLINS MD 11/14/2021 12:00:00 AM [facility] Outpatient Attender: Yuri Norris FNPReferrer: Yuri GALARZA [id number] 10/22/2021 12:00:00 AM [facility] Outpatient [id number] [facility] [address] 10/16/2021 12:00:00 AM EST eCW ([facility]) O Attender: Hermilo Claire DOConsultant: COLT COLLINS MD 10/12/2021 12:00:00 AM EST NDOC ([facility]) Patient admitted. Outpatient Attender: Yuri GALARZA 10/11/2021 12:00:00 AM [facility] Outpatient Attender: Yuri Norris FNPReferrer: Yuri GALARZA 10/10/2021 12:00:00 AM [facility] Outpatient Attender: COTL COLLINS MD [id number] 10/05/2021 1 1:05:13 AM [facility] Inpatient Attender: COLT COLLINS MD Attender: FRANCES RETANA DOAdmitter: COLT COLLINS MDReferrer: Joe Desai [id number] 10/05/2021 12 :00:00 AM EST - 10/11/2021 05:47:00 PM EST Back pain [facility] Back pain Patient discharged. Outpatient Referrer: Yuri GOSSP 10/04/2021 12: 00:00 AM EST Arthrodesis status [facility] Arthrodesis status Outpatient Referrer: Yuri GALARZA 10/03/2021 12: 00:00 AM EST Arthrodesis status [facility] Arthrodesis status Outpatient Attender: Yuri Norris FNPReferrer: YESSY [place]) RPA-C [id number] 10/03/2021 12:00:00 AM EST [facility] Unknown [address] [facility] [address] 10/02/2021 12:00:00 AM EST eCW1 ([facility] Unknown [address] [facility] [address] 09/28/2021 12:00:00 AM EDT [facility] Tea Spangler, FISHER HAND LINE: [address], [place] [address], Ph. Attender: Tea Spangler [facility] [place] - [facility] - Main Office 09/11/2021 12:00:00 AM EDT ATHE NA ([facility]) Outpatient Attender: Graciela BLACKWELL 021 08:06:52 AM EDT - 09/10/2021 08:46:15 AM EDT [facility] ([facility] ) Unknown [address] [facility] [address] 09/06/2021 12:00:00 AM EDT eCW1 ([facility]) Outpatient Referrer: Yuri GALARZA 08/30/2021 12: 00:00 AM EDT Arthrodesis [facility] Arthrodesis status Outpatient Attender: Yuri Norris FNPReferrer: YESSY WHITE ([place]) RPA-C [id number] 08/30/2021 12:00:00 AM EDT [facility] Outpatient Attender: Yuri GALARZA 08/22/2021 12:00:00 AM EDT [facility] Unknown [address] [facility] [address] 08/02/2021 12:00:00 AM EDT eCW1 ([facility]) Outpatient Attender: Yuri Norris FNPReferrer: YESSY [place]) RPA-C [id number] 08/01/2021 12:00:00 AM EDT [facility] Outpatient Referrer: Ava BLACKWELL 07/27/2021 12 :00:00 AM EDT Arthrodesis [facility] Arthrodesis status Outpatient Attender: Yuri GOSSPAttender: Ava BLACKWELL [id number] 07/27/2021 [facility] COLT COLLINS MD 07/12/2021 12:00[facility]: Yuri GALARZA 07/12/2021 [facility]: COLT COLLINS MD 07/11/2021 07:48:1 8 AM EDT Lab [facility] Inpatient Attender: COLT COLLINS MDAdmitter: COLT COOK MD 07/11/2021 06:30:00 AM EDT - 07/14/2021 12:37:00 PM EDT L5-S1, L1-S1, L4-L5, L5-S1, LUMBAR RADICULOPATHY. M54.16 [facility] L5-S1, L1-S1, L4-L5, L5-S1, LUMBAR RADIC ULOPATHY. M54.16 Patient discharged. Inpatient Attender: COLT COLLINS MD 07/11/2021 06:30:0 0 AM EDT [facility] [place] ( in Healthcare facility) Attender: BON COLLINS MDAdmitter: COLT COLLINS MDConsultant: DILLON GrahamOAKES) AMINATA-C 07/11/2021 06:30:00 AM EDT [facility] Outpatient 07/11/2021 12:00:00 AM EDT [facility] Unknown [address] [facility] [address] 07/05/2021 12:00:00 AM EDT eCW1 ([facility]) Unknown [address] [facility], [place] [address] 07/05/2021 12:00:00 AM EDT eCW1 ([facility]) Outpatient [address] [facility] Y [address] 07/02/2021 12:00:00 AM EDT eCW1 ([facility]) Unknown [address] [facility], [place] [address] 07/02/2021 12:00:00 AM EDT eCW1 ([facility]) Emergency Attender: ER PHYSICIAN 06/28/2021 07:09:08 PM E DT Lab [facility] Emergency Attender: Nelly Byrd NPAttender: ER PHYSICIAN 06/28/2021 05:23:00 PM EDT - 06/28/2021 09:03:00 PM EDT BACK PAIN [facility] BACK PAIN Patient discharged. Outpatient Attender: COLT COLLINS MDReferrer: DILLON KHALIL) FRITZC 06/28/2021 12:00:00 AM EDT [facility] Outpatient Referrer: COLT COLLINS MD 06/28/2021 12:00:0 0 AM EDT [facility] Outpatient Referrer: COLT COLLINS MD 06/28/2021 12:00:0 0 AM EDT [facility] Unknown [address] [facility] [address] 06/24/2021 12:00:00 AM EDT eCW1 ([facility]) Unknown [address] [facility] Y [address] 06/24/2021 12:00:00 AM EDT eCW1 ([facility]) Outpatient Attender: COLT COLLINS MD [id number] 12:00:00 AM EDT - 06/26/2021 01:13:20 PM EDT [facility] Emergency Attender: Paramjit Burkett NPAttender: ER PHYSICIAN 06/18/2021 12:19:00 PM EDT - 06/18/2021 05:03:00 PM EDT BACK PAIN AND LEG BURNING SENSATION [facility] BACK PAIN AND LEG BURNING SENSATION Patient discharged. Unknown [address] [facility] [address] 06/13/2021 12:00:00 AM EDT eCW1 ([facility]) Unknown [address] [facility] [address] 06/13/2021 12:00:00 AM EDT eCW1 ([facility]) Outpatient Attender: Yuri GOSSP 06/13/2021 12:00:00 AM EDT [facility] Juaquin Jacques MD: [address], [place] [address], Ph. Attender: Juaquin Jacques MD CT - [facility] 06/06/2021 12:00:00 AM EDT JAJA ([facility]) Juaquin Jacques MD: [address], [place] [address], Ph. Attender: Juaquin HERNANDEZ - [facility] Office 06/06/2021 12:00:00 AM EDT JJAA ([facility]) Juaquin Jacques MD: [address], [place] [address], Ph. [phone] Attender: Juaquin HERNANDEZ - [facility] Office 06/01/2021 12:00:00 AM EDT JAJA ([facility]) Juaquin Jacques MD: [address], [address], [place], [place] [address], Ph. [phone] Attender: Juaquin Jacques MD CT - [facility] 06/01/2021 12:00:00 AM EDT JAJA ([facility]) Juaquin Jacques MD: [address] [facility] [address], [place] [address], Ph. [phone] Attender: Juaquin Jacques MD CT - [facility] 06/01/2021 12:00:00 AM EDT JAJA ([facility]) Outpatient Referrer: Yuri GALARZA 05/31/2021 12: 00:00 AM EDT Arthrodesis status [facility] Arthrodesis status Outpatient Attender: Yuri Norris FNPReferrer: YESSY [place]) RPA-C [id number] 05/31/2021 12:00:00 AM EDT [facility] Telehealth Physchotherapy 30 Minutes with Patient [facility] 05/22/2021 12:00:00 AM EDT [facility] ([facility]) Tea Spangler, FISHER HAND LINE: [address], [place] [address], Ph. [facility]: [facility] 05/17/2021 12:00:00 AM EDT NEGRA JIMENEZ ([facility]) Tea Spangler, FISHER HAND LINE: [address], [place] [address], Ph. Attender: Tea Spangler [facility] 05/17/2021 12:00:00 AM EDT NEGRA JIMENEZ ([facility]) Tea Spangler, FISHER HAND LINE: [address], [place] [address], Ph. Attender: Tea Spangler [facility] - [facility] 05/17/2021 12:00:00 AM EDT ATHPam NA ([facility]) Tea Spangler, FISHER HAND LINE: [address], [place] [address], Ph. Attender: Tea Spangler [facility] - [facility] 05/17/2021 12:00:00 AM EDT ATHE NA ([facility]) [facility] 05/15/2021 12:00:00 AM EDT [facility] ([facility]) Outpatient [address] [place] [address] 05/09/2021 12:00:00 AM EDT [facility] ([facility]) non-billable [facility] 04/20/2021 12:00:00 AM [facility]) Tea Spangler, FISHER HAND LINE: [address], [place] [address], Ph. Attender: Tea Spangler [facility] - [facility] 04/10/2021 12:00:00 AM EDT ATHPam NA ([facility]) Tea Spangler, FISHER HAND LINE: [address], [place] [address], Ph. Attender: Tea Spangler [facility] - [facility] 04/10/2021 12:00:00 AM EDT ATHPam NA ([facility]) Tea Spangler, FISHER HAND LINE: [address], [place] [address], Ph. Attender: Tea Spangler [facility] - [facility] 04/10/2021 12:00:00 AM EDT ATHE NA ([facility]) Tea Spangler, FISHER HAND LINE: [address], [address], [place] [address], Ph. Attender: Tea Spangler [facility] - [facility] 04/10/2021 12:00:00 AM EDT ATHPam NA ([facility]) Tea Spangler, FISHER HAND LINE: [address], [address], [place] [address], Ph. Attender: Tea Spangler [facility] - [facility] 04/10/2021 12:00:00 AM EDT NEGRA JIMENEZ ([facility]) Telehealth Physchotherapy 30 Minutes with Patient [facility] 04/05/2021 12:00:00 AM EDT [facility] ([facility]) Juaquin Jacques MD: [address], [place] [address], Ph. Attender: Juaquin HERNANDEZ - [facility] 03/29/2021 12:00:00 AM EDT JAJA ([facility]) Juaquin Jacques MD: [address], [place] [address], Ph. Attender: Juaquin HERNANDEZ - [facility] 03/29/2021 12:00:00 AM EDT JAJA ([facility]) Juaquin Jacques MD: [address], [place] [address], Ph. Attender: Juaquin HERNANDEZ - [facility] 03/29/2021 12:00:00 AM EDT JAJA ([facility]) Juaquin Jacques MD: [address], [place] [address], Ph. Attender: Juaquin Jacques MD CT - [facility] 03/29/2021 12:00:00 AM EDT JAJA ([facility]) Juaquin Jacques MD: [address], [place] [address], Ph. Attender: Juaquin Jacques MD CT - [facility] 03/29/2021 12:00:00 AM EDT JAJA ([facility]) Juaquin Jacques MD: [address], [place] [address], Ph. Attender: Juaquin Jacques MD CT - [facility] 03/29/2021 12:00:00 AM EDT JAJA ([facility]) Outpatient [address] [facility] [address] 03/29/2021 12:00:00 AM EDT eC ([facility]) Juaquin Jacques MD: [address], [place] [address], Ph. [phone] Attender: Juaquin HERNANDEZ - [facility] 03/26/2021 12:00:00 AM EDT JAJA ([facility]) Juaquin Jacques MD: [address], [place] [address], Ph. [phone] Attender: Juaquin Jacques MD CT - [facility] 03/26/2021 12:00:00 AM EDT JAJA ([facility]) Juaquin Jacques MD: [address], [place] [address], Ph. [phone] Attender: Juaquin HERNANDEZ - [facility] 03/26/2021 12:00:00 AM EDT JAJA ([facility]) Juaquin Jacques MD: [address], [address], [place] [address], Ph. [phone] Attender: Juaquin Jacques MD CT - [facility] 03/26/2021 12:00:00 AM EDT JAJA ([facility]) Juaquin Jacques MD: [address], [address], [place] [address], Ph. [phone] Attender: Juaquin Jacques MD CT - [facility] 03/26/2021 12:00:00 AM EDT JAJA ([facility]) Juaquin Jacques MD: [address], [address], [place] [address], Ph. [phone] Attender: Juaquin Jacques MD CT - [facility] 03/26/2021 12:00:00 AM EDT JAJA ([facility]) Juaquin Jacques MD: [address], [address], [place] [address], Ph. [phone] Attender: Juaquin Jacques MD CT - [facility] 03/26/2021 12:00:00 AM EDT JAJA ([facility]) Tea Spangler, FISHER HAND LINE: [address], [place] [address], Ph. Attender: Tea Spangler [facility] - [facility] 03/20/2021 12:00:00 AM EDT ATHPam JIMENEZ ([facility]) Tea Spangler, FISHER HAND LINE: [address], [place] [address], Ph. Attender: Tea Spangler [facility] - [facility] 03/20/2021 12:00:00 AM EDT ATHE NA ([facility]) Tea Spangler, FISHER HAND LINE: [address], [place] [address], Ph. Attender: Tea Bereemelylina [facility] - [facility] 03/20/2021 12:00:00 AM EDT ATHE NA ([facility]) Tea Hudson Bereadam, FISHER HAND LINE: [address], [place] [address], Ph. Attender: Tea Bereemelylina [facility] - [facility] 03/20/2021 12:00:00 AM EDT ATHPam NA ([facility]) Tea Abhinavfabrizionancy Spangler, FISHER HAND LINE: [address], [place] [address], Ph. Attender: Tea Aníbal [facility] - [facility] 03/20/2021 12:00:00 AM EDT ATHPam JIMENEZ ([facility]) Telehealth Physchotherapy 30 Minutes with Patient [facility] 03/20/2021 12:00:00 AM EDT [facility]) Tea Spangler, FISHER HAND LINE: [address], [place] [address], Ph. Attender: Tea Aníbal [facility] - [facility] 03/20/2021 12:00:00 AM EDT ATHPam NA ([facility]) eTa Abhinavfabrizionancy Braylina, FISHER HAND LINE: [address], [place] [address], Ph. Attender: Tea Spangler [facility] - [facility] 03/20/2021 12:00:00 AM EDT ATHE NA ([facility]) Tea Spangler, FISHER HAND LINE: [address], [address], [place] [address], Ph. Attender: Tea Spangler GEOVANNI CT - [facility] - Main Office 03/20/2021 12:00:00 AM EDT ATHPam JIMENEZ ([facility]) Outpatient Referrer: Yuri GOSSP 03/14/2021 12: 00:00 AM EDT Arthrodesis status [facility] Arthrodesis status Outpatient Attender: Yuri Norris FNPReferrer: YESSY WHITE ([place]) RPA-C [id number] 03/14/2021 12:00:00 AM EDT Arthrodesis status [facility] Arthrodesis status Unknown [address] [place] [address], [place] [address] 03/09/2021 12:00:00 AM EDT eCW1 ([facility]) Unknown [address] [facility] [address] 03/07/2021 12:00:00 AM EDT eCW1 ([facility]) Unknown [address] [facility] [address] 03/06/2021 12:00:00 AM EDT eCW1 ([facility]) Unknown [address] [place] [address] [place] [address] 03/06/2021 12:00:00 AM EDT eCW1 ([facility]) Unknown [address] [place] [address], [place] [address] 03/06/2021 12:00:00 AM EDT eCW1 ([facility]) Unknown [address] [place] [address], [place] [address] 03/06/2021 12:00:00 AM EDT eCW1 ([facility]) Outpatient Attender: Yuri GALARZA 03/06/2021 12:00:00 AM EDT [facility] Outpatient [address] [facility] [address] 02/23/2021 12:00:00 AM EDT eCW1 ([facility]) Unknown [address] [facility] [address] 02/22/2021 12:00:00 AM EDT eCW1 ([facility]) Outpatient Attender: Yuri GALARZA 01/25/2021 12:00:00 AM [facility] Outpatient Attender: Yuri GALARZA 01/22/2021 12:00:00 AM [facility] Unknown [address] [facility] [address] 01/17/2021 12:00:00 AM EST eCW1 ([facility]) Outpatient Attender: Yuri GALARZA 01/10/2021 12:00:00 AM [facility] Outpatient Attender: Yuri GOSSKSttender: Ava Porras nd PA [id number] 10/10/2020 12:00:00 AM [facility] Outpatient Attender: Ava BLACKWELL 10/02/2020 12:00:00 AM [facility] Outpatient Attender: Renetta SAENZC 10/02/2020 12:00:00 AM [facility] Outpatient Attender: Yuri GOSSP 10/02/2020 12:00:00 AM [facility] Outpatient Attender: Yuri GOSSP 09/21/2020 12:00:00 AM T [facility] Outpatient Referrer: Yuri GALARZA 08/24/2020 12: 00:00 AM EDT Arthrodesis status [facility] Arthrodesis status Immunizations Vaccine Date Status Description Data Source(s) COVID-19 (Pfizer), mRNA, LNP-S, PF, 30 mcg/0.3 mL dose 03/23/2021 12:00:00 AM EDT completed [facility] COVID-19 VACCINE Pfizer 03/23/2021 12:00:00 AM EDT [facility] Complete: YESThis Data wa s Submitted to [facility] Via [employer]. COVID-19 dose #2 given elsewhere Unspecified 02/23/2021 09:1 4:00 AM EDT completed eCW1 ([facility]) COVID-19 dose #2 given elsewhere Unspecified 02/23/2021 09:1 4:00 AM EDT completed eCW1 ([facility]) COVID-19 dose #2 given elsewhere Unspecified 02/23/2021 09:1 4:00 AM EDT completed eCW1 ([facility]) COVID-19 dose #2 given elsewhere Unspecified 02/23/2021 09:1 4:00 AM EDT completed eCW1 ([facility]) COVID-19 dose #2 given elsewhere Unspecified 02/23/2021 09:1 4:00 AM EDT completed eCW1 ([facility]) COVID-19 dose #2 given elsewhere Unspecified 02/23/2021 09:1 4:00 AM EDT completed eCW1 ([facility]) COVID-19 dose #2 given elsewhere Unspecified 02/23/2021 09:1 4:00 AM EDT completed eCW1 ([facility]) COVID-19 dose #2 given elsewhere Unspecified 02/23/2021 09:1 4:00 AM EDT completed eCW1 ([facility]) COVID-19 dose #2 given elsewhere Unspecified 02/23/2021 09:1 4:00 AM EDT completed eCW1 ([facility]) COVID-19 dose #2 given elsewhere Unspecified 02/23/2021 09:1 4:00 AM EDT completed eCW1 ([facility]) COVID-19 dose #2 given elsewhere Unspecified 02/23/2021 09:1 4:00 AM EDT completed eCW1 ([facility]) COVID-19 dose #2 given elsewhere Unspecified 02/23/2021 09:1 4:00 AM EDT completed eCW1 ([facility]) COVID-19 dose #2 given elsewhere Unspecified 02/23/2021 09:1 4:00 AM EDT completed eCW1 ([facility]) COVID-19 dose #2 given elsewhere Unspecified 02/23/2021 09:1 4:00 AM EDT completed eCW1 ([facility]) COVID-19 dose #2 given elsewhere Unspecified 02/23/2021 09:1 4:00 AM EDT completed eCW1 ([facility]) COVID-19 dose #2 given elsewhere Unspecified 02/23/2021 09:1 4:00 AM EDT completed eCW1 ([facility]) COVID-19 dose #2 given elsewhere Unspecified 02/23/2021 09:1 4:00 AM EDT completed eCW1 ([facility]) COVID-19 dose #2 given elsewhere Unspecified 02/23/2021 09:1 4:00 AM EDT completed eCW1 ([facility]) COVID-19 dose #2 given elsewhere Unspecified 02/23/2021 09:1 4:00 AM EDT completed eCW1 ([facility]) COVID-19 dose #2 given elsewhere Unspecified 02/23/2021 09:1 4:00 AM EDT completed eCW1 ([facility]) COVID-19 dose #2 given elsewhere Unspecified 02/23/2021 09:1 4:00 AM EDT completed eCW1 ([facility]) COVID-19 dose #2 given elsewhere Unspecified 02/23/2021 09:1 4:00 AM EDT completed eCW1 ([facility]) COVID-19 dose #1 given elsewhere Unspecified 02/02/2021 09:1 4:00 AM EST completed eCW1 ([facility]) COVID-19 dose #1 given elsewhere Unspecified 02/02/2021 09:1 4:00 AM EST completed eCW1 ([facility]) COVID-19 dose #1 given elsewhere Unspecified 02/02/2021 09:1 4:00 AM EST completed eCW1 ([facility]) COVID-19 dose #1 given elsewhere Unspecified 02/02/2021 09:1 4:00 AM EST completed eCW1 ([facility]) COVID-19 dose #1 given elsewhere Unspecified 02/02/2021 09:1 4:00 AM EST completed eCW1 ([facility]) COVID-19 dose #1 given elsewhere Unspecified 02/02/2021 09:1 4:00 AM EST completed eCW1 ([facility]) COVID-19 dose #1 given elsewhere Unspecified 02/02/2021 09:1 4:00 AM EST completed eCW1 ([facility]) COVID-19 dose #1 given elsewhere Unspecified 02/02/2021 09:1 4:00 AM EST completed eCW1 ([facility]) COVID-19 dose #1 given elsewhere Unspecified 02/02/2021 09:1 4:00 AM EST completed eCW1 ([facility]) COVID-19 dose #1 given elsewhere Unspecified 02/02/2021 09:1 4:00 AM EST completed eCW1 ([facility]) COVID-19 dose #1 given elsewhere Unspecified 02/02/2021 09:1 4:00 AM EST completed eCW1 ([facility]) COVID-19 dose #1 given elsewhere Unspecified 02/02/2021 09:1 4:00 AM EST completed eCW1 ([facility]) COVID-19 dose #1 given elsewhere Unspecified 02/02/2021 09:1 4:00 AM EST completed eCW1 ([facility]) COVID-19 dose #1 given elsewhere Unspecified 02/02/2021 09:1 4:00 AM EST completed eCW1 ([facility]) COVID-19 dose #1 given elsewhere Unspecified 02/02/2021 09:1 4:00 AM EST completed eCW1 ([facility]) COVID-19 dose #1 given elsewhere Unspecified 02/02/2021 09:1 4:00 AM EST completed eCW1 ([facility]) COVID-19 dose #1 given elsewhere Unspecified 02/02/2021 09:1 4:00 AM EST completed eCW1 ([facility]) COVID-19 dose #1 given elsewhere Unspecified 02/02/2021 09:1 4:00 AM EST completed eCW1 ([facility]) COVID-19 dose #1 given elsewhere Unspecified 02/02/2021 09:1 4:00 AM EST completed eCW1 ([facility]) COVID-19 dose #1 given elsewhere Unspecified 02/02/2021 09:1 4:00 AM EST completed eCW1 ([facility]) COVID-19 dose #1 given elsewhere Unspecified 02/02/2021 09:1 4:00 AM EST completed eCW1 ([facility]) COVID-19 dose #1 given elsewhere Unspecified 02/02/2021 09:1 4:00 AM EST completed eCW1 ([facility]) COVID-19 (Pfizer), mRNA, LNP-S, PF, 30 mcg/0.3 mL dose 02/02/2021 12:00:00 AM EST completed [facility] COVID-19 VACCINE Pfizer 02/02/2021 12:00:00 AM EST completed [facility] Vaccine Series Complete: NOThis Data was Submitted to [facility] Via [employer]. Medications Medication Brand Name Start Date Product Form Dose Route Admi nistrative Instructions Pharmacy Instructions Status Indications Reaction Description Data Source(s) 5-325 mg 10/22/2021 12:00:00 AM EST tablet 42 TAKE ONE TABLET BY MOUTH EVERY 6 HOURS NEEDED FOR PAIN MAXIMUM DAILY DOSE = 4 TAKE ONE TABLET BY MOUTH EVERY 6 HOURS NEEDED FOR PAIN MAXIMUM DAILY DOSE = 4 SOLD: 10/23/2021 [facility] Rifampin 300 MG Oral Capsule RIFAMPIN 10/12/2021 12:00:00 AM EST caps ule 60 TAKE ONE CAPSULE BY MOUTH EVERY 12 HOURS TAKE ONE CAPSULE BY MOUTH EVERY 12 HOURS SOLD: 10/12/2021 [facility] 17 gram/dose 10/12/2021 12:00:00 AM EST powder 238 DISSOLVE 1 CAPFUL IN 8OZ LIQUID AND DRINK ONCE DAILY NEEDED FOR UP TO 3 DAYS DISSOLVE 1 CAPFUL IN 8OZ LIQUID AND DRINK ONCE DAILY NEEDED FOR UP TO 3 DAYS SOLD: 10/12/2021 [facility] 3 ML heparin sodium, porcine 100 UNT/ML Prefilled Syringe Heparin Sodium Lock Flush 100 UNIT/ML Intravenous Solution Heparin Sodium Lock Flush 100 UNIT/ML Intravenous Solution 10/12/2021 12:00:00 AM EST 500 U Intracathete r active Encounter for long-term (current) use of antibioticsLumbar surgical wound fluid collection, subsequent encounter 5 mLs by Intracatheter rout e as needed [facility] Encounter for long-term (current) use of antibiotics Lumbar surgical wound fluid collection, subsequent encounter Normal Saline Flush 0.9 % Intravenous Solution [id number] 10/12/2021 12:00:00 AM EST 1000 mL Intravenous active Encounte r for long-term (current) use of antibioticsLumbar surgical wound fluid collection, subsequent encounter Inject 1,000 mLs into the vein as needed [facility] Encounter for long-term (current) use of antibiotics Lumbar surgical wound fluid collection, subsequent encounter Oxacillin Sodium 2 GM Injection Solution Reconstituted 90018 -[id number] 10/12/2021 12:00:00 AM EST 2 g Intravenous active En counter for long-term (current) use of antibioticsLumbar surgical wound fluid collection, subsequent encounter Inject 2,000 mg into the vein every 4 (four) hours [facility] Encounter for long-term (current) use of antibiotics Lumbar surgical wound fluid collection, subsequent encounter potassium chloride (K-DUR) dissolvable tablet 20 mEq [id number] 10/11/2021 09:00:00 PM EST 20 meq Oral active 20 mEq, Oral, 2 Times Daily, First dose on Jessica 10/11/21 at 2100, For 3 doses
Do not crush or chew
[facility] Medication administered onsite sodium chloride flush 0.9 % 10 mL 10/11/2021 03:45:[address] 10 mL Intravenous active [Order 1 Star t] Name: sodium chloride flush 0.9 % 10 mL Signed Summary: 10 mL, Intravenous, Every 12 hours, First dose on Jessica 10/11/21 at 1545, For 30 days
Verify blood return before use. Flush lines with 10 mL Sodium Chloride 0.9% routinely Q12hrs & before and after infusions or blood sampling per policy followed by 2 mL Heparin 10 units/mL (UNLESS PATIENT HAS HEPARIN ALLERGY). Reference CM C-34 Central Lines.
[Order 1 End] [Order 2 Start] Name: heparin lock flush 10 UNIT/ML injection 20 Units Signed Summary: 20 Units (2 mL), Intravenous, Every 12 hours, First dose on Jessica 10/11/21 at 1545, For 30 days
Verify blood return before use. Flush lines with 10 mL Sodium Chloride 0.9% routinely Q12hrs & before and after infusions or blood sampling per policy followed by 2 mL Heparin 10 units/mL (UNLESS PATIENT HAS HEPARIN ALLERGY). Reference CM C-34 Central Lines.
[Order 2 End] [facility] Medication administered onsite sodium chloride flush 0.9 % 10 mL 10/11/2021 03:45:[address] 10 mL Intravenous active [Order 1 Star t] Name: sodium chloride flush 0.9 % 10 mL Signed Summary: 10 mL, Intravenous, Every 12 hours, First dose on Jessica 10/11/21 at 1545, For 30 days
Verify blood return before use. Flush lines with 10 mL Sodium Chloride 0.9% routinely Q12hrs & before and after infusions or blood sampling per policy followed by 2 mL Heparin 10 units/mL (UNLESS PATIENT HAS HEPARIN ALLERGY). Reference CM C-34 Central Lines.
[Order 1 End] [Order 2 Start] Name: heparin lock flush 10 UNIT/ML injection 20 Units Signed Summary: 20 Units (2 mL), Intravenous, Every 12 hours, First dose on Jessica 10/11/21 at 1545, For 30 days
Verify blood return before use. Flush lines with 10 mL Sodium Chloride 0.9% routinely Q12hrs & before and after infusions or blood sampling per policy followed by 2 mL Heparin 10 units/mL (UNLESS PATIENT HAS HEPARIN ALLERGY). Reference CM C-34 Central Lines.
[Order 2 End] [facility] Medication administered onsite sodium chloride flush 0.9 % 10 mL 10/11/2021 03:38:[address] 10 mL Intravenous active [Order 1 Star t] Name: sodium chloride flush 0.9 % 10 mL Signed Summary: 10 mL, Intravenous, PRN, Flushing, Starting on Jessica 10/11/21 at 1538, For 30 days
Verify blood return before use. Flush lines with 10 mL Sodium Chloride 0.9% routinely Q12hrs & before and after infusions or blood sampling per policy followed by 2 mL Heparin 10 units/mL (UNLESS PATIENT HAS HEPARIN ALLERGY). Reference CM C-34 Central Lines.
[Order 1 End] [Order 2 Start] Name: heparin lock flush 10 UNIT/ML injection 20 Units Signed Summary: 20 Units (2 mL), Intravenous, PRN, Line Care, Flushing, Starting on Jessica 10/11/21 at 1538, For 30 days
Verify blood return before use. Flush lines with 10 mL Sodium Chloride 0.9% routinely Q12hrs & before and after infusions or blood sampling per policy followed by 2 mL Heparin 10 units/mL (UNLESS PATIENT HAS HEPARIN ALLERGY). Reference CM C-34 Central Lines.
[Order 2 End] [facility] Medication administered onsite sodium chloride flush 0.9 % 10 mL 10/11/2021 03:38:[address] 10 mL Intravenous active [Order 1 Star t] Name: sodium chloride flush 0.9 % 10 mL Signed Summary: 10 mL, Intravenous, PRN, Flushing, Starting on Jessica 10/11/21 at 1538, For 30 days
Verify blood return before use. Flush lines with 10 mL Sodium Chloride 0.9% routinely Q12hrs & before and after infusions or blood sampling per policy followed by 2 mL Heparin 10 units/mL (UNLESS PATIENT HAS HEPARIN ALLERGY). Reference CM C-34 Central Lines.
[Order 1 End] [Order 2 Start] Name: heparin lock flush 10 UNIT/ML injection 20 Units Signed Summary: 20 Units (2 mL), Intravenous, PRN, Line Care, Flushing, Starting on Jessica 10/11/21 at 1538, For 30 days
Verify blood return before use. Flush lines with 10 mL Sodium Chloride 0.9% routinely Q12hrs & before and after infusions or blood sampling per policy followed by 2 mL Heparin 10 units/mL (UNLESS PATIENT HAS HEPARIN ALLERGY). Reference CM C-34 Central Lines.
[Order 2 End] [facility] Medication administered onsite sodium chloride flush 0.9 % 10 mL [id number] 10/11/2021 03:38:55 PM EST 10 mL Intravenous active 10 mL, I ntravenous, PRN, After Parenteral Nutrition, Starting on Jessica 10/11/21 at 1538, For 30 days
Flush line with 10 mL Sodium Chloride 0.9 % after Parenteral Nutrition (PN).
[facility] Medication administered onsite sodium chloride 0.9 % bag 3-20 mL [id number] 10/11/2021 03:38:44 PM EST mL Intravenous active 3-20 mL, Intr avenous, at 1-999 mL/hr, PRN, For Medication Administration and Line Clearance, Starting on Jessica 10/11/21 at 1538, For 30 days
Flush line with sufficient amount of fluid needed based on creative writing english professor recommendation for specific line size. Rate should be run at the same rate as medication in the line being flushed.
[facility] Medication administered onsite lidocaine (XYLOCAINE) 1 % injection 5 mL [id number] 10/11/2021 09:04:11 AM EST 5 mL Subcutaneous active 5 m L, Subcutaneous, Once PRN, for PICC insertion, Starting on Jessica 10/11/21 at 0904, For 30 days [facility] Medication administered onsite Normal Saline Flush 0.9 % Intravenous Solution [id number] 10/11/2021 12:00:00 AM EST active 10 ml IV before a nd after dose and PRN [facility] 3 ML heparin sodium, porcine 100 UNT/ML Prefilled Syringe Heparin Sodium Lock Flush 100 UNIT/ML Intravenous Solution Heparin Sodium Lock Flush 100 UNIT/ML Intravenous Solution 10/11/2021 12:00:00 AM EST active 5 mls IV after dose and PRN [facility] dextrose 5 % SOLN 500 mL with oxacillin 1 g SOLR 12 g Drug or medicament (substance) 10/11/2021 12:00:00 AM EST 12 g Intravenous a ctive Inject 12 g into the vein every 24 (twenty-four) hours [facility] Rifampin 300 MG Oral Capsule rifAMPin 300 MG Oral Caps ule (RIFADIN) rifAMPin 300 MG Oral Capsule (RIFADIN) 10/11/2021 12:00:00 AM EST 300 mg Oral active Take 1 capsule by mouth every 12 (twelve) hours [facility] Potassium Chloride Sara ER 20 MEQ Oral Tablet Extended Release (K-DUR) [id number] 10/11/2021 12:00:00 AM EST 20 meq Oral activ e Take 1 tablet by mouth Two Times Daily for 10 days [facility] POLYETHYLENE GLYCOL 3350 142 MG/ML Oral Solution Polyethylene Glycol 3350 17 GM Oral Packet (MIRALAX) Polyethylene Glycol 3350 17 GM Oral Packet (MIRALAX) 10/11/2021 12:00:00 AM EST 17 g Oral active Take 1 packet by mouth daily as needed (constipation) for up to 3 daysPlease substitute bottle for packets, if packets are unavailable. [facility] Docusate Sodium 100 MG Oral Capsule Docu sate Sodium 100 MG Oral Capsule (COLACE) Docusate Sodium 100 MG Oral Capsule (COLACE) 10/11/2021 12:00:00 AM EST 100 mg Oral active Take 1 capsule by mouth Two Times Daily for 10 days [facility] Acetaminophen 325 MG / Oxycodone Hydroch loride 5 MG Oral Tablet oxyCODONE- Acetaminophen 5-325 MG Oral Tablet (PERCOCET) oxyCODONE-Acetaminophen 5-325 MG Oral Tablet (PERCOCET) 10/11/2021 12:00:00 AM EST {tbl} Oral active Take 1-2 tablets by mouth every 4 (four) hours as needed for Pain for up to 7 days, Max Daily Dose: 6 tablets [facility] sennosides, MCC 8.6 MG Oral Tablet Senna 8.6 MG Oral T ablet Senna 8.6 MG Oral Tablet 10/11/2021 12:00:00 AM EST 2 {tbl} Oral active Take 2 tablets by mouth nightly [facility] 100 mg 10/11/2021 12:00:00 AM EST capsule 20 TAKE ONE CAPSULE BY MOUTH TWICE A DAY FOR 10 DAYS TAKE ONE CAPSULE BY MOUTH TWICE A DAY FOR 10 DAYS SOLD : 10/11/2021 [facility] 8.6 mg 10/11/2021 12:00:00 AM EST tablet 60 TAKE 2 TABLETS BY MOUTH NIGHTLY TAKE 2 TABLETS BY MOUTH NIGHTLY SOLD: 10/11/2021 [facility] Potassium Chloride 20 MEQ Extended Relea se Oral Tablet Potassium Chloride ER 20 MEQ Oral Tablet Extended Release Potassium Chloride ER 20 MEQ Oral Tablet Extended Release 10/11/2021 12:00:00 AM EST a ctive TAKE ONE TABLET BY MOUTH TWICE A DAY FOR 10 DAYS [facility] 20 mEq 10/11/2021 12:00:00 AM EST tablet extended release 20 TAKE ONE TABLET BY MOUTH TWICE A DAY FOR 10 DAYS TAKE ONE TABLET BY MOUTH TWICE A DAY FOR 10 DAYS SOLD: 10/11/2021 [facility] 5-325 mg 10/11/2021 12:00:00 AM EST tablet 42 TAKE ONE TO TWO TABLETS BY MOUTH EVERY 4 HOURS NEEDED FOR PAIN FOR UP TO 7 DAYS MAXIMUM DAILY DOSE = 6 TAKE ONE TO TWO TABLETS BY MOUTH EVERY 4 HOURS NEEDED FOR PAIN FOR UP TO 7 DAYS MAXIMUM DAILY DOSE = 6 SOLD: 10/11/2021 [facility] perflutren lipid microspheres (DEFINITY) injectable suspensi on 9.78 mg [id number] 10/10/2021 08:23:32 AM EST 1.5 mL Intravenous active 9.78 mg (1.5 mL), Intravenous, Once PRN, Other, Echo imaging enhancement, Starting on Fri10/10/21 at 0823, For 72 hours [facility] Medication administered onsite Rifampin 300 MG Oral Capsule rifAMPin (RIFADIN) capsul e 300 mg rifAMPin (RIFADIN) capsule 300 mg 10/09/2021 09:00:00 PM EST 300 mg Oral active 300 mg, Oral, Every 12 hours Standard (2 times per day), First dose on Fri10/09/21 at 2100, For 14 days [facility] Medication administered onsite Bisacodyl 10 MG Rectal Suppository bisacodyl (DULCOLAX ) suppository 10 mg bisacodyl (DULCOLAX) suppository 10 mg 10/09/2021 04:42:53 PM EST 10 mg Rectal active 10 mg, Rectal, Every 72 hours PRN, Constipation, Constipation, Starting on Fri10/09/21 at 1642, For 30 days
Hold if patient has had a BM in the past 2 days.
[facility] Medication administered onsite oxacillin in dextrose 5 % 50 mL infusion 2 g Drug or medicam ent (substance) 10/09/2021 04:00:00 PM EST 2 g Intravenous active 2 g, Intravenous, at 100 mL/hr, Every 4 hours, First dose on Fri10/09/21 at 1600, For 14 days [facility] Medication administered onsite 0.4 ML Enoxaparin sodium 100 MG/ML Prefi lled Syringe enoxaparin sodium (LOVENOX) injection 40 mg enoxaparin sodium (LOVENOX) injection 40 mg 10/09/2021 09:45:00 AM EST 40 mg Subcutaneous active 40 mg, Subcutaneous, Daily Standard, First dose on Fri10/09/21 at 0945, For 30 days [facility] Medication administered onsite 50 mg 10/08/2021 12:00:00 AM EST tablet 45 TAKE ONE TABLET BY MOUTH THREE TIMES A DAY NEEDED MAXIMUM DAILY DOSE = 3 TAKE ONE TABLET BY MOUTH THREE TIMES A DAY NEEDED MAXIMUM DAILY DOSE = 3 SOLD: 10/11/2021 [facility] cefepime in NaCl 0.9 % 50 mL infusion 2 g Drug or medicament (substance) 10/07/2021 09:00:00 PM EST 2 g Intravenous aborted 2 g, Intravenous, Administer over 30 Minutes, Every 8 hours, First dose on 10/07/21 at 2100, For 7 days [facility] Medication administered onsite sodium chloride 0.9 % bolus 500 mL [id number] 10/07/2021 08:00:00 PM EST 500 mL Intravenous completed 500 mL, Intravenous, Once, On 10/07/21 at 2000, For 1 dose [facility] Medication administered onsite vancomycin (VANCOCIN) 1500 mg in NaCl 0.9 % 512 mL (premix) [id number] 10/07/2021 04:00:00 PM EST 1500 mg Intravenous aborted 1,500 mg, Intravenous, Administer over 90 Minutes, Every 12 hours, First dose on 10/07/21 at 1600, For 7 days [facility] Medication administered onsite cefepime in NaCl 0.9 % 50 mL infusion 2 g Drug or medicament (substance) 10/07/2021 02:00:00 PM EST 2 g Intravenous completed 2 g, Intravenous, Administer over 30 Minutes, Every 8 hours, First dose on 10/07/21 at 1400, For 3 hours [facility] Medication administered onsite Acetaminophen 10 MG/ML Injectable Soluti on acetaminophen (OFIRMEV) infusion 1,000 mg acetaminophen (OFIRMEV) infusion 1,000 mg 10/07/2021 12:30:00 PM EST 1000 mg Intravenous completed 1,000 mg , Intravenous, Once, On 10/07/21 at 1230, For 1 dose
If NPO and has not yet received an acetaminophen product in prior 4 hours.
[facility] Medication administered onsite HYDROmorphone (DILAUDID) injection 0.5 mg [id number] 10/07/2021 12:19:33 PM EST 0.5 mg Intravenous completed 0. 5 mg, Intravenous, Every 5 min PRN, Severe Pain (Pain Scale Score 7-10), Starting on 10/07/21 at 1219, For 4 doses, [facility] Medication administered onsite fentaNYL (SUBLIMAZE) (PF) injection 12.5 mcg [id number] 10/07/2021 12:19:33 PM EST 12.5 ug Intravenous aborted 12.5 mcg, Intravenous, Every 5 min PRN, Moderate Pain (Pain Scale Score 4-6), Starting on 10/07/21 at 1219, For 10 doses, [facility] Medication administered onsite 12 HR Guaifenesin 600 MG Extended Releas e Oral Tablet guaifenesin (MUCINEX) 12 hr tablet 600 mg guaifenesin (MUCINEX) 12 hr tablet 600 mg 10/07/2021 0 9:00:00 AM EST 600 mg Oral active 600 mg, Oral, 2 Times Daily, First dose on 10/07/21 at 0900, For 30 days
Do not crush or chew
[facility] Medication administered onsite pregabalin 50 MG Oral Capsule pregabalin (LYRICA) caps ule 100 mg pregabalin (LYRICA) capsule 100 mg 10/06/2021 09:00:00 AM EST 100 mg Oral active 100 mg, Oral, 2 Times Daily, First dose on 10/06/21 at 0900, For 20 days [facility] Medication administered onsite docusate sodium (COLACE) capsule 100 mg 10/06/2021 09:00:0 0 AM EST 100 mg Oral active [Order 1 Start ] Name: docusate sodium (COLACE) capsule 100 mg Signed Summary: 100 mg, Oral, 2 Times Daily, First dose on 10/06/21 at 0900, For 30 days [Order 1 End] [Order 2 Start] Name: docusate (COLACE) 50 MG/5ML liquid 100 mg Signed Summary: 100 mg, Oral, 2 Times Daily, First dose on Fri10/06/21 at 0900, For 30 days [Order 2 End] [facility] Medication administered onsite duloxetine 60 MG Delayed Release Oral Ca psule DULoxetine (CYMBALTA) DR capsule 60 mg DULoxetine (CYMBALTA) DR capsule 60 mg 10/06/2021 09:00:00 AM EST 60 mg Oral active 60 mg, Oral, D aily Standard, First dose on 10/06/21 at 0900, For 30 days
Do not crush or chew
[facility] Medication administered onsite Ergocalciferol 34896 UNT Oral Capsule vi tamin D (ERGOCALCIFEROL) capsule 50,000 Units vitamin D (ERGOCALCIFEROL) capsule 50,000 Units 2020 09:00:00 AM EST 02035 U Oral active 50,000 U nits, Oral, Every 7 days, First dose on Fri10/06/21 at 0900, For 20 days [facility] Medication administered onsite Lurasidone Hydrochloride 40 MG Oral Tablet lurasidone HCl (LATUDA) tablet 80 mg lurasidone HCl (LATUDA) tablet 80 mg 10/06/2021 09:00:00 AM EST 80 mg Oral active 80 mg, Oral, Farzaneh ly Standard, First dose on Fri10/06/21 at 0900, For 30 days
Administer with food.
[facility] Medication administered onsite Acetaminophen 325 MG Oral Tablet acetaminophen (TYLENO L) tablet 650 mg acetaminophen (TYLENOL) tablet 650 mg 10/05/2021 10:15:00 PM EST 65 0 mg Oral active 650 mg, Oral, E very 6 hours Standard (4 times per day), First dose on Fri10/05/21 at 2215, For 30 days
Maximum daily dose of acetaminophen is 3000 mg from all sources in 24 hours.
[facility] Medication administered onsite 0.9% NaCl (MAINTENANCE) infusion [id number] 10/05/2021 10:15:00 P M EST 100 mL/h Intravenous aborted at 100 m L/hr, Intravenous, Continuous, Starting on Fri10/05/21 at 2215, For 30 days [facility] Medication administered onsite senna (SENOKOT) syrup 10 mL 10/05/2021 10:15:00 PM EST 1 0 mL Oral active [Order 1 Start] Name : senna (SENOKOT) syrup 10 mL Signed Summary: 10 mL, Oral, Nightly, First dose on Fri10/05/21 at 2215, For 30 doses [Order 1 End] [Order 2 Start] Name: senna tablet 2 tablet Signed Summary: 2 tablet, Oral, Nightly, First dose on Fri10/05/21 at 2215, For 30 doses [Order 2 End] [facility] Medication administered onsite ondansetron (ZOFRAN) injection 4 mg 10/05/2021 10:00:52 PM EST 4 mg Intravenous active [Order 1 Star t] Name: ondansetron (ZOFRAN) injection 4 mg Signed Summary: 4 mg, Intravenous, Every 8 hours PRN, Nausea, Vomiting, Starting on Fri10/05/21 at 2200, For 12 days 12 hours [Order 1 End] [Order 2 Start] Name: ondansetron (ZOFRAN) tablet 4 mg Signed Summary: 4 mg, Oral, Every 8 hours PRN, Nausea, Vomiting, Starting on Fri10/05/21 at 2200, For 12 days 12 hours [Order 2 End] [facility] Medication administered onsite oxyCODONE (ROXICODONE) immediate release tablet 5 mg 10/05/2021 10:00:52 PM EST 5 mg Oral active [Order 1 Start] Name: oxyCODONE (ROXICODONE) immediate release tablet 5 mg Signed Summary: 5 mg, Oral, Every 4 hours PRN, Moderate Pain (Pain Scale Score 4-6), Starting on Fri10/05/21 at 2200, For 9 days 9 hours
Oxycodone immediate release is limited to 10 mg per dose. Higher doses ([facility] only) require Pain Service consultation and approval.
[Order 1 End] [Order 2 Start] Name: oxyCODONE (ROXICODONE) immediate release tablet 10 mg Signed Summary: 10 mg, Oral, Every 4 hours PRN, Severe Pain (Pain Scale Score 7-10), Starting on Fri10/05/21 at 2200, For 9 days 9 hours
Oxycodone immediate release is limited to 10 mg per dose. Higher doses ([facility] only) require Pain Service consultation and approval.
[Order 2 End] [facility] Medication administered onsite fentaNYL (SUBLIMAZE) (PF) injection 25 mcg [id number] 10/05/2021 10:00:51 PM EST 25 ug Intravenous aborted 25 m cg, Intravenous, Every 2 hours PRN, Other, breakthrough, Starting on Fri10/05/21 at 2200, For 5 days 9 hours [facility] Medication administered onsite POLYETHYLENE GLYCOL 3350 142 MG/ML Oral Solution polyethylene glycol (MIRALAX) packet 17 g polyethylene glycol (MIRALAX) packet 17 g 10/05/2021 1 0:00:51 PM EST 17 g Oral active 17 g, Or al, Daily PRN, constipation, Starting on Fri10/05/21 at 2200, For 30 days [facility] Medication administered onsite morphine sulfate (PF) injection 4 mg [id number] 10/05/2021 09:00: 00 PM EST 4 mg Intravenous completed 4 mg, In travenous, Once, On Fri10/05/21 at 2100, For 1 dose [facility] Medication administered onsite 100 mg 09/18/2021 12:00:00 AM EDT capsule 60 TAKE ONE CAPSULE BY MOUTH TWICE A DAY NEEDED TAKE ONE CAPSULE BY MOUTH TWICE A DAY NEEDED SOLD: 09/28/2021 [facility] 10 mg 09/13/2021 12:00:00 AM EDT tablet 30 TAKE ONE TABLET BY MOUTH EVERY DAY TAKE ONE TABLET BY MOUTH EVERY DAY SOLD: 09/28/2021 [facility] 80 mg 09/12/2021 12:00:00 AM EDT tablet 30 TAKE ONE TABLET BY MOUTH WITH A 350 CALORIE SNACK OR IMMEDIATELY AFTER DINNER TAKE ONE TABLET BY MOUTH WITH A 350 CALORIE SNACK OR IMMEDIATELY AFTER DINNER SOLD: 09/28/2021 [facility] 30 mg 09/12/2021 12:00:00 AM EDT capsule,delayed release (DR/EC) 60 TAKE ONE CAPSULE BY MOUTH TWICE A DAY TAKE ONE CAPSULE BY MOUTH TWICE A DAY SOLD: 09/28/2021 [facility] duloxetine 30 MG Delayed Release Oral Ca psule DULoxetine HCl 30 MG Oral Capsule Delayed Release Particles (CYMBALTA) DULoxetine HCl 30 MG Oral Capsule Delaye d Release Particles (CYMBALTA) 09/12/2021 12:00:00 AM EDT 30 mg Oral active Take 30 mg by mouth Two Times Daily [facility] 150 mg 09/11/2021 12:00:00 AM EDT capsule 90 TAKE ONE CAPSULE BY MOUTH THREE TIMES A DAY * MAXIMUM DAILY DOSE = 3 TAKE ONE CAPSULE BY MOUTH THREE TIMES A DAY * MAXIMUM DAILY DOSE = 3 SOLD: 09/28/2021 [facility] 120 mg 08/21/2021 12:00:00 AM EDT tablet 30 TAKE 1 TABLET BY MOUTH ONCE DAILY WITH 350 CALORIE SNACK OR RIGHT AFTER DINNER TAKE 1 TABLET BY MOUTH ONCE DAILY WITH 350 CALORIE SNACK OR RIGHT AFTER DINNER SOLD: 08/22/2021 [facility] 120 mg 08/21/2021 12:00:00 AM EDT tablet 30 TAKE 1 TABLET BY MOUTH ONCE DAILY WITH 350 CALORIE SNACK OR RIGHT AFTER DINNER TAKE 1 TABLET BY MOUTH ONCE DAILY WITH 350 CALORIE SNACK OR RIGHT AFTER DINNER SOLD: 09/28/2021 [facility] 100 mg 08/19/2021 12:00:00 AM EDT capsule 60 TAKE ONE CAPSULE BY MOUTH TWICE A DAY NEEDED TAKE ONE CAPSULE BY MOUTH TWICE A DAY NEEDED SOLD: 08/22/2021 [facility] 100 mg 08/15/2021 12:00:00 AM EDT capsule 90 TAKE ONE CAPSULE BY MOUTH THREE TIMES A DAY MAXIMUM DAILY DOSE = 3 TAKE ONE CAPSULE BY MOUTH THREE TIMES A DAY MAXIMUM DAILY DOSE = 3 SOLD: 08/22/2021 [facility] 50 mcg (2,000 unit) 08/04/2021 12:00:00 AM EDT tablet 30 TAKE ONE TABLET BY MOUTH EVERY DAY TAKE ONE TABLET BY MOUTH EVERY DAY SOLD: 08/06/2021 [facility] 50 mcg (2,000 unit) 08/04/2021 12:00:00 AM EDT tablet 30 TAKE ONE TABLET BY MOUTH EVERY DAY TAKE ONE TABLET BY MOUTH EVERY DAY SOLD: 09/28/2021 [facility] Oxycodone Hydrochloride 5 MG Oral Tablet oxyCODONE HCl 5 MG Oral Tablet (Roxicodone) oxyCODONE HCl 5 MG Oral Tablet (Roxicodone) 07/24/2021 12:00:00 AM EDT 5 mg Oral active Take 1 t ablet by mouth every 4 (four) hours as needed for Pain, Max Daily Dose: 30 mg [facility] 5 mg 07/24/2021 12:00:00 AM EDT tablet 42 TAKE ONE TABLET BY MOUTH EVERY 4 HOURS NEEDED FOR PAIN MAXIMUM DAILY DOSE = 6 TAKE ONE TABLET BY MOUTH EVERY 4 HOURS NEEDED FOR PAIN MAXIMUM DAILY DOSE = 6 SOLD: 07/24/2021 [facility] 5 mg 07/14/2021 12:00:00 AM EDT tablet 42 TAKE 1 TO 2 TABLETS BY MOUTH EVERY 4 HOURS NEEDED FOR PAIN, 1 TABLET FOR MODERATE PAIN, 2 TABLETS FOR SEVERE PAIN DIRECTED, MAXIMUM DAILY DOSE = 6 TABLETS TAKE 1 TO 2 TABLETS BY MOUTH EVERY 4 HOURS NEEDED FOR PAIN, 1 TABLET FOR MODERATE PAIN, 2 TABLETS FOR SEVERE PAIN DIRECTED, MAXIMUM DAILY DOSE = 6 TABLETS SOLD: 07/14/2021 [facility] 10 mg 07/14/2021 12:00:00 AM EDT tablet 30 TAKE ONE TABLET BY MOUTH AT BEDTIME TAKE ONE TABLET BY MOUTH AT BEDTIME SOLD: 07/24/2021 [facility] 10 mg 07/14/2021 12:00:00 AM EDT tablet 30 TAKE ONE TABLET BY MOUTH AT BEDTIME TAKE ONE TABLET BY MOUTH AT BEDTIME SOLD: 08/22/2021 [facility] 100 mg 2021 12:00:00 AM EDT capsule 90 TAKE ONE CAPSULE BY MOUTH THREE TIMES A DAY MAXIMUM DAILY DOSE = 3 TAKE ONE CAPSULE BY MOUTH THREE TIMES A DAY MAXIMUM DAILY DOSE = 3 SOLD: 07/09/2021 [facility] 20 mg 06/29/2021 12:00:00 AM EDT tablet 10 TAKE ONE TABLET BY MOUTH TWICE A DAY TAKE ONE TABLET BY MOUTH TWICE A DAY SOLD: 06/29/2021 [facility] Cyclobenzaprine hydrochloride 10 MG Oral Tablet CYCLOBENZAPR INE HCL 06/29/2021 12:00:00 AM EDT tablet 20 TAKE ONE TABLET BY MOUTH EVERY 8 HOURS NEEDED MUSCLE PAIN TAKE ONE TABLET BY MOUTH EVERY 8 HOURS NEEDED MUSCL E PAIN SOLD: 06/29/2021 [facility] 4 mg 06/19/2021 12:00:00 AM EDT tablets,dose pack 21 FOLLOWING PACKAGE DIRECTIONS FOLLOWING PACKAGE DIRECTIONS SOLD: 06/19/2021 [facility] methylPREDNISolone 4 MG Oral Tablet Therapy Pack (MEDROL DOS EPACK) [id number] 06/19/2021 12:00:00 AM EDT active follow package directions [facility] Acetaminophen 325 MG / Hydrocodone Bitartrate 5 MG Ora l Tablet 5-325 mg HYDROCODONE/ACETAMINOPHEN 06/18/2021 12:00:00 AM EDT tablet 20 TAKE ONE TABLET BY MOUTH EVERY 4 HOURS NEEDED FOR PAIN MAXIMUM DAILY DOSE = 4 TAKE ONE TABLET BY MOUTH EVERY 4 HOURS NEEDED FOR PAIN MAXIMUM DAILY DOSE = 4 SOLD: 06/18/2021 [facility] Cyclobenzaprine hydrochloride 10 MG Oral Tablet CYCLOBENZAPR INE HCL 06/18/2021 12:00:00 AM EDT tablet 20 TAKE ONE TABLET BY MOUTH EVERY 8 HOURS NEEDED FOR MUSCLE SPASM TAKE ONE TABLET BY MOUTH EVERY 8 HOURS NEEDED FOR M USCLE SPASM SOLD: 06/18/2021 [facility] 4 mg 06/16/2021 12:00:00 AM EDT tablets,dose pack 21 USE DIRECTED USE DIRECTED SOLD: 06/16/2021 [facility] 4 mg 06/13/2021 12:00:00 AM EDT tablets,dose pack 21 USE DIRECTED USE DIRECTED SOLD: 06/13/2021 [facility] methylPREDNISolone 4 MG Oral Tablet Therapy Pack (MEDROL DOS EPACK) [id number] 06/13/2021 12:00:00 AM EDT active follow package [facility] 100 mg 06/07/2021 12:00:00 AM EDT capsule 60 TAKE ONE CAPSULE BY MOUTH TWICE A DAY NEEDED TAKE ONE CAPSULE BY MOUTH TWICE A DAY NEEDED SOLD: 06/13/2021 [facility] 50 mg 06/01/2021 12:00:00 AM EDT tablet 21 TAKE ONE TABLET BY MOUTH THREE TIMES A DAY NEEDED MAXIMUM DAILY DOSE = 3 TAKE ONE TABLET BY MOUTH THREE TIMES A DAY NEEDED MAXIMUM DAILY DOSE = 3 SOLD: 06/01/2021 [facility] 100 mg 05/26/2021 12:00:00 AM EDT capsule 90 TAKE ONE CAPSULE BY MOUTH THREE TIMES A DAY MAXIMUM DAILY DOSE = 3 CAPSULES TAKE ONE CAPSULE BY MOUTH THREE TIMES A DAY MAXIMUM DAILY DOSE = 3 CAPSULES SOLD: 06/01/2021 [facility] 30 mg 05/17/2021 12:00:00 AM EDT capsule,delayed release (DR/EC) 60 TAKE ONE CAPSULE BY MOUTH TWICE A DAY TAKE ONE CAPSULE BY MOUTH TWICE A DAY SOLD: 07/24/2021 [facility] 30 mg 05/17/2021 12:00:00 AM EDT capsule,delayed release (DR/EC) 40 TAKE ONE CAPSULE BY MOUTH TWICE A DAY TAKE ONE CAPSULE BY MOUTH TWICE A DAY SOLD: 06/19/2021 [facility] 30 mg 05/17/2021 12:00:00 AM EDT capsule,delayed release (DR/EC) 40 TAKE ONE CAPSULE BY MOUTH TWICE A DAY TAKE ONE CAPSULE BY MOUTH TWICE A DAY SOLD: 05/17/2021 [facility] 50 mg 05/17/2021 12:00:00 AM EDT tablet 21 TAKE ONE TABLET BY MOUTH THREE TIMES A DAY NEEDED MAXIMUM DAILY DOSE = 3 TABLETS TAKE ONE TABLET BY MOUTH THREE TIMES A DAY NEEDED MAXIMUM DAILY DOSE = 3 TABLETS SOLD: 05/17/2021 [facility] Medrol (Jalen) 4 MG Medrol (Jalen) 4 MG 05/09/2021 12:00:00 AM EDT active Medrol (Jalen) 4 MG eCW1 ([facility]) Phenazopyridine hydrochloride 200 MG Oral Tablet [Pyri dium] Pyridium 200 MG Pyridium 200 MG 05/09/2021 12:00:00 AM EDT 1.0 {tablet_after_meals} active Pyridium 200 MG eCW1 ([facility]) Medrol (Jalen) 4 MG Medrol (Jalen) 4 MG 05/09/2021 12:00:00 AM EDT active Medrol (Jalen) 4 MG eCW1 ([facility]) Medrol (Jalen) 4 MG Medrol (Jalen) 4 MG 05/09/2021 12:00:00 AM EDT active Medrol (Jalen) 4 MG eCW1 ([facility]) Sulfamethoxazole 800 MG / Trimethoprim 1 60 MG Oral Tablet [Bactrim] Bactrim DS 800-160 MG Bactrim DS 800-160 MG 05/09/2021 12:00:00 AM EDT 1.0 {table t} active Bactrim DS 800-160 MG eCW1 ( [facility]) Phenazopyridine hydrochloride 200 MG Oral Tablet [Pyri dium] Pyridium 200 MG Pyridium 200 MG 05/09/2021 12:00:00 AM EDT 1.0 {tablet_after_meals} active Pyridium 200 MG eCW1 ([facility]) Sulfamethoxazole 800 MG / Trimethoprim 1 60 MG Oral Tablet [Bactrim] Bactrim DS 800-160 MG Bactrim DS 800-160 MG 05/09/2021 12:00:00 AM EDT 1.0 {table t} active Bactrim DS 800-160 MG eCW1 ( [facility]) 800-160 mg 05/09/2021 12:00:00 AM EDT tablet 14 TAKE ONE TABLET BY MOUTH TWICE A DAY FOR 7 DAYS TAKE ONE TABLET BY MOUTH TWICE A DAY FOR 7 DAYS SOLD: 05/10/2021 [facility] Fluconazole 150 MG Oral Tablet Fluconazole 150 MG 05/09/2021 12:00: 00 AM EDT 1.0 {tablet} active Fluconazole 150 MG eCW1 ([facility]) Phenazopyridine hydrochloride 200 MG Oral Tablet [Pyri dium] Pyridium 200 MG Pyridium 200 MG 05/09/2021 12:00:00 AM EDT 1.0 {tablet_after_meals} active Pyridium 200 MG eCW1 ([facility]) 200 mg 05/09/2021 12:00:00 AM EDT tablet 6 TAKE ONE TABLET BY MOUTH THREE TIMES A DAY AFTER MEALS FOR 2 DAYS TAKE ONE TABLET BY MOUTH THREE TIMES A D AY AFTER MEALS FOR 2 DAYS SOLD: 05/10/2021 [facility] Phenazopyridine hydrochloride 200 MG Oral Tablet [Pyri dium] Pyridium 200 MG Pyridium 200 MG 05/09/2021 12:00:00 AM EDT 1.0 {tablet_after_meals} active Pyridium 200 MG eCW1 ([facility]) Sulfamethoxazole 800 MG / Trimethoprim 1 60 MG Oral Tablet [Bactrim] Bactrim DS 800-160 MG Bactrim DS 800-160 MG 05/09/2021 12:00:00 AM EDT 1.0 {table t} active Bactrim DS 800-160 MG eCW1 ( [facility]) Sulfamethoxazole 800 MG / Trimethoprim 1 60 MG Oral Tablet [Bactrim] Bactrim DS 800-160 MG Bactrim DS 800-160 MG 05/09/2021 12:00:00 AM EDT 1.0 {table t} active Bactrim DS 800-160 MG eCW1 ( [facility]) Medrol (Jalen) 4 MG Medrol (Jalen) 4 MG 05/09/2021 12:00:00 AM EDT active Medrol (Jalen) 4 MG eCW1 ([facility]) Fluconazole 150 MG Oral Tablet Fluconazole 150 MG 05/09/2021 12:00: 00 AM EDT 1.0 {tablet} active Fluconazole 150 MG eCW1 ([facility]) 150 mg 05/09/2021 12:00:00 AM EDT tablet 1 TAKE 1 TABLET BY MOUTH FOR 1 DOSE TAKE 1 TABLET BY MOUTH FOR 1 DOSE SOLD: 05/10/2021 [facility] Fluconazole 150 MG Oral Tablet Fluconazole 150 MG 05/09/2021 12:00: 00 AM EDT 1.0 {tablet} active Fluconazole 150 MG eCW1 ([facility]) Fluconazole 150 MG Oral Tablet Fluconazole 150 MG 05/09/2021 12:00: 00 AM EDT 1.0 {tablet} active Fluconazole 150 MG eCW1 ([facility]) Sulfamethoxazole 800 MG / Trimethoprim 1 60 MG Oral Tablet [Bactrim] Bactrim DS 800-160 MG Bactrim DS 800-160 MG 05/09/2021 12:00:00 AM EDT 1.0 {table t} active Bactrim DS 800-160 MG eCW1 ( [facility]) Fluconazole 150 MG Oral Tablet Fluconazole 150 MG 05/09/2021 12:00: 00 AM EDT 1.0 {tablet} active Fluconazole 150 MG eCW1 ([facility]) Phenazopyridine hydrochloride 200 MG Oral Tablet [Pyri dium] Pyridium 200 MG Pyridium 200 MG 05/09/2021 12:00:00 AM EDT 1.0 {tablet_after_meals} active Pyridium 200 MG eCW1 ([facility]) Medrol (Jalen) 4 MG Medrol (Jalen) 4 MG 05/09/2021 12:00:00 AM EDT active Medrol (Jalen) 4 MG eCW1 ([facility]) 4 mg 05/09/2021 12:00:00 AM EDT tablets,dose pack 21 USE DIRECTED USE DIRECTED SOLD: 05/10/2021 [facility] 10 mg 04/30/2021 12:00:00 AM EDT tablet 30 TAKE ONE TABLET BY MOUTH AT BEDTIME TAKE ONE TABLET BY MOUTH AT BEDTIME SOLD: 05/07/2021 [facility] 10 mg 04/30/2021 12:00:00 AM EDT tablet 30 TAKE ONE TABLET BY MOUTH AT BEDTIME TAKE ONE TABLET BY MOUTH AT BEDTIME SOLD: 06/19/2021 [facility] 120 mg 04/29/2021 12:00:00 AM EDT tablet 30 TAKE ONE TABLET EVERY DAY WITH 350 CALORIE SNACK OR IMMEDIATELY AFTER DINNER TAKE ONE TABLET EVERY DAY WITH 350 CALORIE SNACK OR IMMEDIATELY AFTER DINNER SOLD: 07/24/2021 [facility] 120 mg 04/29/2021 12:00:00 AM EDT tablet 30 TAKE ONE TABLET EVERY DAY WITH 350 CALORIE SNACK OR IMMEDIATELY AFTER DINNER TAKE ONE TABLET EVERY DAY WITH 350 CALORIE SNACK OR IMMEDIATELY AFTER DINNER SOLD: 06/19/2021 [facility] 120 mg 04/29/2021 12:00:00 AM EDT tablet 30 TAKE ONE TABLET EVERY DAY WITH 350 CALORIE SNACK OR IMMEDIATELY AFTER DINNER TAKE ONE TABLET EVERY DAY WITH 350 CALORIE SNACK OR IMMEDIATELY AFTER DINNER SOLD: 05/07/2021 [facility] 60 mg 04/29/2021 12:00:00 AM EDT capsule,delayed release (DR/EC) 60 TAKE ONE CAPSULE BY MOUTH TWICE A DAY TAKE ONE CAPSULE BY MOUTH TWICE A DAY SOLD: 05/07/2021 [facility] Sertraline 50 MG Oral Tablet Sertraline HCl 50 MG Oral Tablet (ZOLOFT) Sertraline HCl 50 MG Oral Tablet (ZOLOFT) 04/29/2021 12:00:00 AM EDT aborted TAKE 1/2 TABLET DAILY FOR 1 WEEK THEN 1 TABLET DAILY [facility] 100 mg 04/25/2021 12:00:00 AM EDT capsule 90 TAKE ONE CAPSULE BY MOUTH THREE TIMES A DAY * MAXIMUM DAILY DOSE = 3 TAKE ONE CAPSULE BY MOUTH THREE TIMES A DAY * MAXIMUM DAILY DOSE = 3 SOLD: 04/26/2021 [facility] 50 mg 04/24/2021 12:00:00 AM EDT tablet 30 TAKE 1/2 TABLET DAILY FOR 1 WEEK THEN 1 TABLET DAILY TAKE 1/2 TABLET DAILY FOR 1 WEEK THEN 1 TABLET DAILY S OLD: 05/07/2021 [facility] 50 mg 04/24/2021 12:00:00 AM EDT tablet 9 TAKE 1/2 TABLET DAILY FOR 1 WEEK THEN 1 TABLET DAILY TAKE 1/2 TABLET DAILY FOR 1 WEEK THEN 1 TABLET DAILY S OLD: 04/26/2021 [facility] 4 mg 04/04/2021 12:00:00 AM EDT tablets,dose pack 21 FOLLOW PACKAGE DIRECTIONS FOLLOW PACKAGE DIRECTIONS SOLD: 04/04/2021 [facility] 50 mcg (2,000 unit) 03/30/2021 12:00:00 AM EDT tablet 30 TAKE ONE TABLET BY MOUTH EVERY DAY TAKE ONE TABLET BY MOUTH EVERY DAY SOLD: 05/07/2021 [facility] 50 mcg (2,000 unit) 03/30/2021 12:00:00 AM EDT tablet 30 TAKE ONE TABLET BY MOUTH EVERY DAY TAKE ONE TABLET BY MOUTH EVERY DAY SOLD: 04/04/2021 [facility] Cholecalciferol 2000 UNT Oral Tablet Vitamin D 50 MCG (1999 UT) Vitamin D 50 MCG (1999 UT) 03/29/2021 12:00:00 AM EDT 1.0 {tablet} a ctive Vitamin D 50 MCG (1999 UT) eCW1 ([facility]) Cholecalciferol 2000 UNT Oral Tablet Vitamin D 50 MCG (1999 UT) Vitamin D 50 MCG (1999 UT) 03/29/2021 12:00:00 AM EDT 1.0 {tablet} a ctive Vitamin D 50 MCG (1999 UT) eCW1 ([facility]) Cholecalciferol 2000 UNT Oral Tablet Vitamin D 50 MCG (1999 UT) Vitamin D 50 MCG (1999 UT) 03/29/2021 12:00:00 AM EDT 1.0 {tablet} a ctive Vitamin D 50 MCG (1999 UT) eCW1 ([facility]) Cholecalciferol 2000 UNT Oral Tablet Vitamin D 50 MCG (1999 UT) Vitamin D 50 MCG (1999 UT) 03/29/2021 12:00:00 AM EDT 1.0 {tablet} a ctive Vitamin D 50 MCG (1999 UT) eCW1 ([facility]) Cholecalciferol 2000 UNT Oral Tablet Vitamin D 50 MCG (1999 UT) Vitamin D 50 MCG (1999 UT) 03/29/2021 12:00:00 AM EDT 1.0 {tablet} a ctive Vitamin D 50 MCG (1999 UT) eCW1 ([facility]) Cholecalciferol 2000 UNT Oral Tablet Vitamin D 50 MCG (1999 UT) Vitamin D 50 MCG (1999 UT) 03/29/2021 12:00:00 AM EDT 1.0 {tablet} a ctive Vitamin D 50 MCG (1999 UT) eCW1 ([facility]) Cholecalciferol 2000 UNT Oral Tablet Vitamin D 50 MCG (1999 UT) Vitamin D 50 MCG (1999 UT) 03/29/2021 12:00:00 AM EDT 1.0 {tablet} a ctive Vitamin D 50 MCG (1999 UT) eCW1 ([facility]) Cholecalciferol 2000 UNT Oral Tablet Vitamin D 50 MCG (1999 UT) Vitamin D 50 MCG (1999 UT) 03/29/2021 12:00:00 AM EDT 1.0 {tablet} a ctive Vitamin D 50 MCG (1999 UT) eCW1 ([facility]) Cholecalciferol 2000 UNT Oral Tablet Vitamin D 50 MCG (1999 UT) Vitamin D 50 MCG (1999 UT) 03/29/2021 12:00:00 AM EDT 1.0 {tablet} a ctive Vitamin D 50 MCG (1999 UT) eCW1 ([facility]) Cholecalciferol 2000 UNT Oral Tablet Vitamin D 50 MCG (1999 UT) Vitamin D 50 MCG (1999 UT) 03/29/2021 12:00:00 AM EDT 1.0 {tablet} a ctive Vitamin D 50 MCG (1999 UT) eCW1 ([facility]) Cholecalciferol 2000 UNT Oral Tablet Vitamin D 50 MCG (1999 UT) Vitamin D 50 MCG (1999 UT) 03/29/2021 12:00:00 AM EDT 1.0 {tablet} a ctive Vitamin D 50 MCG (1999 UT) eCW1 ([facility]) Cholecalciferol 2000 UNT Oral Tablet Vitamin D 50 MCG (1999 UT) Vitamin D 50 MCG (1999 UT) 03/29/2021 12:00:00 AM EDT 1.0 {tablet} a ctive Vitamin D 50 MCG (1999 UT) eCW1 ([facility]) Cholecalciferol 2000 UNT Oral Tablet Vitamin D 50 MCG (2000 UT) Vitamin D 50 MCG (1999 UT) 03/29/2021 12:00:00 AM EDT 1.0 {tablet} a ctive Vitamin D 50 MCG (1999) eCW1 ([facility]) Cholecalciferol 1999 UNT Oral Tablet Vitamin D 50 MCG (1999 UT) Vitamin D 50 MCG (1999 UT) 03/29/2021 12:00:00 AM EDT 1.0 {tablet} a ctive Vitamin D 50 MCG (1999) eCW1 ([facility]) Cholecalciferol 2000 UNT Oral Tablet Vitamin D 50 MCG (1999 UT) Vitamin D 50 MCG (1999 UT) 03/29/2021 12:00:00 AM EDT 1.0 {tablet} a ctive Vitamin D 50 MCG (1999) eCW1 ([facility]) 10 mg 03/23/2021 12:00:00 AM EDT tablet 30 TAKE ONE TABLET BY MOUTH AT BEDTIME TAKE ONE TABLET BY MOUTH AT BEDTIME SOLD: 04/04/2021 [facility] 100 mg 03/21/2021 12:00:00 AM EDT capsule 60 TAKE ONE CAPSULE BY MOUTH TWO TIMES A DAY NEEDED TAKE ONE CAPSULE BY MOUTH TWO TIMES A DAY NEEDED SO LD: 03/22/2021 [facility] 100 mg 03/21/2021 12:00:00 AM EDT capsule 90 TAKE ONE CAPSULE BY MOUTH THREE TIMES A DAY MAXIMUM DAILY DOSE = 3 CAPSULES TAKE ONE CAPSULE BY MOUTH THREE TIMES A DAY MAXIMUM DAILY DOSE = 3 CAPSULES SOLD: 03/22/2021 [facility] 100 mg 03/21/2021 12:00:00 AM EDT capsule 60 TAKE ONE CAPSULE BY MOUTH TWO TIMES A DAY NEEDED TAKE ONE CAPSULE BY MOUTH TWO TIMES A DAY NEEDED SO LD: 05/10/2021 [facility] 4 mg 02/23/2021 12:00:00 AM EDT tablets,dose pack 21 FOLLOW PACKAGE DIRECTIONS FOLLOW PACKAGE DIRECTIONS SOLD: 03/01/2021 [facility] 120 mg 02/05/2021 12:00:00 AM EDT tablet 16 TAKE ONE TABLET BY MOUTH WITH A 350 CALORIE SNACK OR IMMEDIATELY AFTER DINNER TAKE ONE TABLET BY MOUTH WITH A 350 CALORIE SNACK OR IMMEDIATELY AFTER DINNER SOLD: 02/06/2021 [facility] 120 mg 02/05/2021 12:00:00 AM EDT tablet 30 TAKE ONE TABLET BY MOUTH WITH A 350 CALORIE SNACK OR IMMEDIATELY AFTER DINNER TAKE ONE TABLET BY MOUTH WITH A 350 CALORIE SNACK OR IMMEDIATELY AFTER DINNER SOLD: 04/04/2021 [facility] 120 mg 02/05/2021 12:00:00 AM EDT tablet 30 TAKE ONE TABLET BY MOUTH WITH A 350 CALORIE SNACK OR IMMEDIATELY AFTER DINNER TAKE ONE TABLET BY MOUTH WITH A 350 CALORIE SNACK OR IMMEDIATELY AFTER DINNER SOLD: 02/23/2021 [facility] 10 mg 02/05/2021 12:00:00 AM EDT tablet 30 TAKE ONE TABLET BY MOUTH AT BEDTIME TAKE ONE TABLET BY MOUTH AT BEDTIME SOLD: 02/23/2021 [facility] 10 mg 02/05/2021 12:00:00 AM EDT tablet 16 TAKE ONE TABLET BY MOUTH AT BEDTIME TAKE ONE TABLET BY MOUTH AT BEDTIME SOLD: 02/06/2021 [facility] 60 mg 01/16/2021 12:00:00 AM EST capsule,delayed release (DR/EC) 60 TAKE ONE CAPSULE BY MOUTH TWICE A DAY TAKE ONE CAPSULE BY MOUTH TWICE A DAY SOLD: 02/23/2021 [facility] 60 mg 01/16/2021 12:00:00 AM EST capsule,delayed release (DR/EC) 60 TAKE ONE CAPSULE BY MOUTH TWICE A DAY TAKE ONE CAPSULE BY MOUTH TWICE A DAY SOLD: 04/04/2021 [facility] 5 mg 01/16/2021 12:00:00 AM EST tablet 30 TAKE ONE TABLET BY MOUTH AT BEDTIME TAKE ONE TABLET BY MOUTH AT BEDTIME SOLD: 01/22/2021 [facility] 60 mg 01/16/2021 12:00:00 AM EST capsule,delayed release (DR/EC) 60 TAKE ONE CAPSULE BY MOUTH TWICE A DAY TAKE ONE CAPSULE BY MOUTH TWICE A DAY SOLD: 01/22/2021 [facility] 20 mg 12/04/2020 12:00:00 AM EST tablet 30 TAKE 1 TABLET BY MOUTH EVERY DAY WITH A 350 CALORIE SNACK OR IMMEDIATELY AFTER DINNER TAKE 1 TABLET BY MOUTH EVERY DAY WITH A 350 CALORIE SNACK OR IMMEDIATELY AFTER DINNER SOLD: 12/21/2020 [facility] 20 mg 12/04/2020 12:00:00 AM EST tablet 17 TAKE 1 TABLET BY MOUTH EVERY DAY WITH A 350 CALORIE SNACK OR IMMEDIATELY AFTER DINNER TAKE 1 TABLET BY MOUTH EVERY DAY WITH A 350 CALORIE SNACK OR IMMEDIATELY AFTER DINNER SOLD: 12/04/2020 [facility] 20 mg 12/04/2020 12:00:00 AM EST tablet 30 TAKE 1 TABLET BY MOUTH EVERY DAY WITH A 350 CALORIE SNACK OR IMMEDIATELY AFTER DINNER TAKE 1 TABLET BY MOUTH EVERY DAY WITH A 350 CALORIE SNACK OR IMMEDIATELY AFTER DINNER SOLD: 01/22/2021 [facility] 5 mg 11/18/2020 12:00:00 AM EST tablet 30 TAKE ONE TABLET BY MOUTH AT BEDTIME TAKE ONE TABLET BY MOUTH AT BEDTIME SOLD: 12/21/2020 [facility] 5 mg 11/18/2020 12:00:00 AM EST tablet 30 TAKE ONE TABLET BY MOUTH AT BEDTIME TAKE ONE TABLET BY MOUTH AT BEDTIME SOLD: 11/21/2020 [facility] 80 mg 11/16/2020 12:00:00 AM EST tablet 30 TAKE 1 TABLET BY MOUTH WITH 350 CALORIE SNACK OR IMMEDIATELY AFTER DINER TAKE 1 TABLET BY MOUTH WITH 350 CALORIE SNACK OR IMMEDIATELY AFTER DINER SOLD: 11/21/2020 [facility] 60 mg 10/20/2020 12:00:00 AM EST capsule,delayed release (DR/EC) 60 TAKE ONE CAPSULE BY MOUTH TWICE A DAY TAKE ONE CAPSULE BY MOUTH TWICE A DAY SOLD: 10/20/2020 [facility] 60 mg 10/20/2020 12:00:00 AM EST capsule,delayed release (DR/EC) 60 TAKE ONE CAPSULE BY MOUTH TWICE A DAY TAKE ONE CAPSULE BY MOUTH TWICE A DAY SOLD: 11/21/2020 [facility] 60 mg 10/20/2020 12:00:00 AM EST capsule,delayed release (DR/EC) 60 TAKE ONE CAPSULE BY MOUTH TWICE A DAY TAKE ONE CAPSULE BY MOUTH TWICE A DAY SOLD: 12/21/2020 [facility] 5 mg 10/14/2020 12:00:00 AM EST tablet 30 TAKE ONE TABLET BY MOUTH AT BEDTIME TAKE ONE TABLET BY MOUTH AT BEDTIME SOLD: 10/20/2020 [facility] 60 mg 09/19/2020 12:00:00 AM EDT capsule,delayed release (DR/EC) 30 TAKE ONE CAPSULE BY MOUTH EVERY DAY TAKE ONE CAPSULE BY MOUTH EVERY DAY SOLD: 10/04/2020 [facility] 30 mg 08/25/2020 12:00:00 AM EDT capsule,delayed release (DR/EC) 30 TAKE ONE CAPSULE BY MOUTH EVERY DAY TAKE ONE CAPSULE BY MOUTH EVERY DAY SOLD: 08/22/2021 [facility] 100 mg 08/22/2020 12:00:00 AM EDT capsule 60 TAKE ONE CAPSULE BY MOUTH TWICE A DAY NEEDED TAKE ONE CAPSULE BY MOUTH TWICE A DAY NEEDED SOLD: 07/24/2021 [facility] 80 mg 08/14/2020 12:00:00 AM EDT tablet 30 TAKE ONE TABLET BY MOUTH EVERY DAY WITH 350 CALORIE SNACK OR IMMEDIATELY AFTER DINNER TAKE ONE TABLET BY MOUTH EVERY DAY WITH 350 CALORIE SNACK OR IMMEDIATELY AFTER DINNER SOLD: 09/17/2020 [facility] 80 mg 08/14/2020 12:00:00 AM EDT tablet 30 TAKE ONE TABLET BY MOUTH EVERY DAY WITH 350 CALORIE SNACK OR IMMEDIATELY AFTER DINNER TAKE ONE TABLET BY MOUTH EVERY DAY WITH 350 CALORIE SNACK OR IMMEDIATELY AFTER DINNER SOLD: 10/20/2020 [facility] 200 mg 08/12/2020 12:00:00 AM EDT capsule 60 TAKE ONE CAPSULE BY MOUTH EVERY DAY WITH FOOD, MAY INCREASE TO TWO TIMES A DAY NEEDED TAKE ONE CAPSULE BY MOUTH EVERY DAY WITH FOOD, MAY INCREASE TO TWO TIMES A DAY NEEDED SOLD: 02/06/2021 [facility] 200 mg 08/12/2020 12:00:00 AM EDT capsule 60 TAKE ONE CAPSULE BY MOUTH EVERY DAY WITH FOOD, MAY INCREASE TO TWO TIMES A DAY NEEDED TAKE ONE CAPSULE BY MOUTH EVERY DAY WITH FOOD, MAY INCREASE TO TWO TIMES A DAY NEEDED SOLD: 03/22/2021 [facility] 200 mg 08/12/2020 12:00:00 AM EDT capsule 60 TAKE ONE CAPSULE BY MOUTH EVERY DAY WITH FOOD, MAY INCREASE TO TWO TIMES A DAY NEEDED TAKE ONE CAPSULE BY MOUTH EVERY DAY WITH FOOD, MAY INCREASE TO TWO TIMES A DAY NEEDED SOLD: 12/04/2020 [facility] 200 mg 08/12/2020 12:00:00 AM EDT capsule 60 TAKE ONE CAPSULE BY MOUTH EVERY DAY WITH FOOD, MAY INCREASE TO TWO TIMES A DAY NEEDED TAKE ONE CAPSULE BY MOUTH EVERY DAY WITH FOOD, MAY INCREASE TO TWO TIMES A DAY NEEDED SOLD: 01/07/2021 [facility] 200 mg 08/12/2020 12:00:00 AM EDT capsule 60 TAKE ONE CAPSULE BY MOUTH EVERY DAY WITH FOOD, MAY INCREASE TO TWO TIMES A DAY NEEDED TAKE ONE CAPSULE BY MOUTH EVERY DAY WITH FOOD, MAY INCREASE TO TWO TIMES A DAY NEEDED SOLD: 10/04/2020 [facility] 5 mg 07/03/2020 12:00:00 AM EDT tablet 30 TAKE ONE TABLET BY MOUTH EVERY DAY TAKE ONE TABLET BY MOUTH EVERY DAY SOLD: 09/17/2020 [facility] 500 mg 05/10/2020 12:00:00 AM EDT tablet 6 TAKE ONE TABLET BY MOUTH TWICE A DAY TAKE ONE TABLET BY MOUTH TWICE A DAY SOLD: 12/04/2020 [facility] 500 mg 05/10/2020 12:00:00 AM EDT tablet 6 TAKE ONE TABLET BY MOUTH TWICE A DAY TAKE ONE TABLET BY MOUTH TWICE A DAY SOLD: 10/20/2020 [facility] valacyclovir 500 MG Oral Tablet valACYclovir HCl 500 M G Oral Tablet (VALTREX) valACYclovir HCl 500 MG Oral Tablet (VALTREX) 05/10/2020 12:00:00 AM EDT 500 mg Oral aborted Take 500 mg by mouth Two Times Daily [facility] 500 mg 05/10/2020 12:00:00 AM EDT tablet 6 TAKE ONE TABLET BY MOUTH TWICE A DAY TAKE ONE TABLET BY MOUTH TWICE A DAY SOLD: 10/04/2020 [facility] Clonidine Hydrochloride 0.1 MG Oral Tabl et cloNIDine HCl 0.1 MG Oral Tablet (CATAPRES) cloNIDine HCl 0.1 MG Oral Tablet (CATAPRES) 04/11/2020 12:00:00 AM EDT aborted TAKE 1/2 TO 1 TABLET BY MOUTH TWO TIMES A DAY NEEDED FOR ANXIETY [facility] albuterol sulfate HFA 90 mcg/actuation aerosol inhaler [id number] completed [id number] 200 ACTUAT albuterol 0.09 MG/ACTUAT Metered Dose Inhaler JAJA ([facility]) duloxetine 30 MG Delayed Release Oral Ca psule duloxetine 30 mg capsule,delayed release TAKE ONE CAPSULE BY MOUTH EVERY DAY duloxetine 30 mg capsule,delayed release TAKE ONE CAPSULE BY MOUTH EVERY DAY completed duloxetine 30 MG Delayed Release Oral Capsule JAJA ([facility]) Lurasidone Hydrochloride 20 MG Oral Tabl et [Latuda] Latuda 20 mg tablet TAKE 1 TABLET BY MOUTH EVERY DAY WITH A 350 CALORIE SNACK OR IMMEDIATELY AFTER DINNER Latuda 20 mg tablet TAKE 1 TABLET BY MOUTH EVERY DAY WITH A 350 CALORIE SNACK OR IMMEDIATELY AFTER DINNER completed lurasidone hydrochloride 20 MG Oral Tablet [Latuda] JAJA ([facility]) valacyclovir 500 MG Oral Tablet valacyclovir 500 mg ta blet valacyclovir 500 mg tablet completed valacyclovir 50 0 MG Oral Tablet JAJA ([facility]) Methocarbamol 500 MG Oral Tablet methocarbamol 500 mg tablet methocarbamol 500 mg tablet completed methocarbamo l 500 MG Oral Tablet [facility] ([facility]) aripiprazole 5 MG Oral Tablet aripiprazo le 5 mg tablet TAKE ONE TABLET BY MOUTH AT BEDTIME aripiprazole 5 mg tablet TAKE ONE TABLET BY MOUTH AT BEDTIME completed aripiprazole 5 MG Oral Ta blet JAJA ([facility]) Acetaminophen 300 MG / Codeine Phosphate 30 MG Oral Tablet acetaminophen 300 mg- codeine 30 mg tablet TAKE ONE TABLET BY MOUTH EVERY 12 HOURS NEEDED FOR PAIN MAXIMUM DAILY DOSE 2 TABLETS acetaminophen 300 mg-codeine 30 mg table t TAKE ONE TABLET BY MOUTH EVERY 12 HOURS NEEDED FOR PAIN MAXIMUM DAILY DOSE 2 TABLETS completed acetam inophen 300 MG / codeine phosphate 30 MG Oral Tablet JAJA ([facility]) albuterol sulfate HFA 90 mcg/actuation aerosol inhaler [id number] completed [id number] 200 ACTUAT albuterol 0.09 MG/ACTUAT Metered Dose Inhaler JAJA ([facility]) valacyclovir 500 MG Oral Tablet valacyclovir 500 mg ta blet valacyclovir 500 mg tablet completed valacyclovir 50 0 MG Oral Tablet JAJA ([facility]) Lurasidone Hydrochloride 20 MG Oral Tabl et [Latuda] Latuda 20 mg tablet TAKE 1 TABLET BY MOUTH EVERY DAY WITH A 350 CALORIE SNACK OR IMMEDIATELY AFTER DINNER Latuda 20 mg tablet TAKE 1 TABLET BY MOUTH EVERY DAY WITH A 350 CALORIE SNACK OR IMMEDIATELY AFTER DINNER completed lurasidone hydrochloride 20 MG Oral Tablet [Latuda] JAJA ([facility]) Oxybutynin chloride 5 MG Oral Tablet oxy butynin chloride 5 mg tablet TAKE 4 TABLETS BY MOUTH EVERY EVENING oxybutynin chloride 5 mg tablet TAKE 4 T ABLETS BY MOUTH EVERY EVENING completed oxybutynin chloride 5 MG Oral Tablet JAJA ([facility]) aripiprazole 5 mg tabs completed aripiprazole 5 mg tabs JAJA ([facility]) Lurasidone Hydrochloride 80 MG Oral Tabl et [Latuda] Latuda 80 mg tablet TAKE 1 TABLET BY MOUTH WITH 350 CALORIE SNACK OR IMMEDIATELY AFTER DINER Latuda 80 mg tablet TAKE 1 TABLET BY MOUTH WITH 350 CALORIE SNACK OR IMMEDIATELY AFTER DINER completed lurasidone hyd rochloride 80 MG Oral Tablet [Latuda] JAJA ([facility]) pregabalin 100 mg caps completed pregabalin 100 mg caps JA[facility] ([facility]) zolpidem tartrate 10 mg tabs co mpleted zolpidem tartrate 10 mg tabs JAJA ([facility]) Oxycodone Hydrochloride 15 MG Oral Table t oxycodone 15 mg tablet TAKE 1/2 TO 1 TABLET BY MOUTH EVERY 4 TO 6 HOURS NEEDED FOR PAIN MODERATE TO SEVERE MAXIMUM DAILY DOSE 6 oxycodone 15 mg tablet TAKE 1/2 TO 1 TAB LET BY MOUTH EVERY 4 TO 6 HOURS NEEDED FOR PAIN MODERATE TO SEVERE MAXIMUM DAILY DOSE 6 completed oxycodone hydroc hloride 15 MG Oral Tablet JAJA ([facility]) aripiprazole 5 mg tabs completed aripiprazole 5 mg tabs JAJA ([facility]) Lurasidone Hydrochloride 80 MG Oral Tabl et [Latuda] Latuda 80 mg tablet TAKE 1 TABLET BY MOUTH WITH 350 CALORIE SNACK OR IMMEDIATELY AFTER DINER Latuda 80 mg tablet TAKE 1 TABLET BY MOUTH WITH 350 CALORIE SNACK OR IMMEDIATELY AFTER DINER completed lurasidone hyd rochloride 80 MG Oral Tablet [Latuda] JAJA ([facility]) paroxetine 40 mg tablet [id number] complet ed paroxetine hydrochloride 40 MG Oral Tablet JAJA ([facility]) celecoxib 200 mg caps completed celecoxib 200 mg caps JAJA ([facility]) Zolpidem tartrate 10 MG Oral Tablet zolp idem 10 mg tablet TAKE ONE TABLET BY MOUTH AT BEDTIME NEEDED FOR SLEEP MAXIMUM DAILY DOSE 1 zolpidem 10 mg tablet TAKE ONE TABLET BY MOUTH AT BEDTIME NEEDED FOR SLEEP MAXIMUM DAILY DOSE 1 completed zolpidem tart rate 10 MG Oral Tablet JAJA ([facility]) zolpidem tartrate 10 mg tabs co mpleted zolpidem tartrate 10 mg tabs JAJA ([facility]) methylprednisolone 4 mg tablets in a dose pack FOLLOW PACKAG E DIRECTIONS [id number] completed methylpredniso lone 4 mg tablets in a dose pack JAJA ([facility]) celecoxib 200 mg caps completed celecoxib 200 mg caps JAJA ([facility]) Acetaminophen 300 MG / Codeine Phosphate 30 MG Oral Tablet acetaminophen 300 mg- codeine 30 mg tablet TAKE ONE TABLET BY MOUTH EVERY 12 HOURS NEEDED FOR PAIN MAXIMUM DAILY DOSE 2 TABLETS acetaminophen 300 mg-codeine 30 mg table t TAKE ONE TABLET BY MOUTH EVERY 12 HOURS NEEDED FOR PAIN MAXIMUM DAILY DOSE 2 TABLETS completed acetam inophen 300 MG / codeine phosphate 30 MG Oral Tablet JAJA ([facility]) duloxetine hydrochloride 60 mg cpep completed duloxetine hydrochloride 60 mg cpep JAJA ([facility]) Lurasidone Hydrochloride 20 MG Oral Tabl et [Latuda] Latuda 20 mg tablet TAKE 1 TABLET BY MOUTH EVERY DAY WITH A 350 CALORIE SNACK OR IMMEDIATELY AFTER DINNER Latuda 20 mg tablet TAKE 1 TABLET BY MOUTH EVERY DAY WITH A 350 CALORIE SNACK OR IMMEDIATELY AFTER DINNER completed lurasidone hydrochloride 20 MG Oral Tablet [Latuda] JAJA ([facility]) pregabalin 100 mg caps completed pregabalin 100 mg caps JAJA ([facility]) Lurasidone Hydrochloride 60 MG Oral Tabl et [Latuda] Latuda 60 mg tablet once daily Latuda 60 mg tablet once daily complet ed lurasidone hydrochloride 60 MG Oral Tablet [Latuda] JAJA ([facility]) Methocarbamol 500 MG Oral Tablet methocarbamol 500 mg tablet methocarbamol 500 mg tablet completed methocarbamo l 500 MG Oral Tablet JAJA ([facility]) clonidine hcl 0.1 mg tabs compl eted clonidine hcl 0.1 mg tabs JAJA ([facility]) tizanidine hydrochloride 4 mg tabs completed tizanidine hydrochloride 4 mg tabs JAJA ([facility]) celecoxib 100 MG Oral Capsule celecoxib 100 mg capsule TAKE ONE CAPSULE BY MOUTH TWO TIMES A DAY NEEDED celecoxib 100 mg capsule TAKE ONE CAPSUL E BY MOUTH TWO TIMES A DAY NEEDED completed celecoxib 100 MG Oral Capsule JAJA ([facility]) Carisoprodol 350 MG Oral Tablet carisoprodol 350 mg ta blet carisoprodol 350 mg tablet completed carisoprodol 35 0 MG Oral Tablet JAJA ([facility]) Oxycodone Hydrochloride 5 MG Oral Tablet oxycodone 5 mg tablet TAKE ONE TO TWO TABLETS BY MOUTH EVERY 4 HOURS NEEDED FOR PAIN MAXIMUM DAILY DOSE 10 oxycodone 5 mg tablet TAKE ONE TO TWO TABLETS BY MOUTH EVERY 4 HOURS NEEDED FOR PAIN MAXIMUM DAILY DOSE 10 compl eted oxycodone hydrochloride 5 MG Oral Tablet JAJA ([facility]) methylprednisolone 4 mg tablets in a dose pack [facility] PACKAGE DIRECTIONS [id number] completed methylprednisol one 4 mg tablets in a dose pack JAJA ([facility]) Sulfamethoxazole 800 MG / Trimethoprim 1 60 MG Oral Tablet sulfamethoxazole 800 mg-trimethoprim 160 mg tablet TAKE ONE TABLET BY MOUTH TWICE A DAY FOR 7 DAYS sulfamethoxazole 800 mg-trimethoprim 160 mg tablet TAKE ONE TABLET BY MOUTH TWICE A DAY FOR 7 DAYS completed sulfamethoxazole 800 MG / trimethoprim 160 MG Oral Tablet JAJA ([facility]) Lurasidone Hydrochloride 80 MG Oral Tabl et [Latuda] Latuda 80 mg tablet TAKE 1 TABLET BY MOUTH WITH 350 CALORIE SNACK OR IMMEDIATELY AFTER DINER Latuda 80 mg tablet TAKE 1 TABLET BY MOUTH WITH 350 CALORIE SNACK OR IMMEDIATELY AFTER DINER completed lurasidone hyd rochloride 80 MG Oral Tablet [Latuda] JAJA ([facility]) paroxetine HCl 50 mg once daily complete d Paxil JAJA ([facility]) tizanidine hydrochloride 4 mg tabs completed tizanidine hydrochloride 4 mg tabs JAJA ([facility]) pregabalin 75 MG Oral Capsule pregabalin 75 mg capsule prega balin 75 mg capsule completed pregabalin 75 MG Oral Capsule JAJA ([facility]) Carisoprodol 350 MG Oral Tablet carisoprodol 350 mg ta blet carisoprodol 350 mg tablet completed carisoprodol 35 0 MG Oral Tablet JAJA ([facility]) clonidine hcl 0.1 mg tabs compl eted clonidine hcl 0.1 mg tabs JA[facility] ([facility]) aripiprazole 5 mg tabs completed aripiprazole 5 mg tabs JAJA ([facility]) Phenazopyridine hydrochloride 200 MG Ora l Tablet phenazopyridine 200 mg tablet TAKE ONE TABLET BY MOUTH THREE TIMES A DAY AFTER MEALS FOR 2 DAYS phenazopyridine 200 mg tablet TAKE ONE TABLET BY MOUTH THREE TIMES A DAY AFTER MEALS FOR 2 DAYS completed phenazopyridine hydrochloride 200 MG Oral Tablet JAJA ([facility]) pregabalin 100 mg caps completed pregabalin 100 mg caps JAJA ([facility]) Acetaminophen 325 MG / Hydrocodone Tee trate 5 MG Oral Tablet hydrocodone 5 mg- acetaminophen 325 mg tablet TAKE ONE TABLET BY MOUTH EVERY 4 HOURS NEEDED FOR PAIN MAXIMUM DAILY DOSE 4 hydrocodone 5 mg-acetaminophen 325 mg ta blet TAKE ONE TABLET BY MOUTH EVERY 4 HOURS NEEDED FOR PAIN MAXIMUM DAILY DOSE 4 completed acetaminop hen 325 MG / hydrocodone bitartrate 5 MG Oral Tablet JAJA ([facility]) Hydroxyzine Hydrochloride 25 MG Oral Tab let hydroxyzine HCl 25 mg tablet TAKE 1 2 TABLETS BY MOUTH TWO TIMES A DAY NEEDED FOR ANXIETY hydroxyzine HCl 25 mg tablet TAKE 1 2 TABLETS BY MOUTH TWO TIMES A DAY NEEDED FOR ANXIETY completed hydroxyzine hydrochloride 25 MG Oral Tablet JAJA ([facility]) Clonidine Hydrochloride 0.1 MG Oral Tabl et clonidine HCl 0.1 mg tablet TAKE 1/2 TO 1 TABLET BY MOUTH TWO TIMES A DAY NEEDED FOR ANXIETY clonidine HCl 0.1 mg tablet TAKE 1/2 TO 1 TABLET BY MOUTH TWO TIMES A DAY NEEDED FOR ANXIETY completed clonidine hydrochlorid e 0.1 MG Oral Tablet JAJA ([facility]) methylprednisolone 4 mg tablets in a dose pack FOLLOW PACKAG E DIRECTIONS [id number] completed methylpredniso lone 4 mg tablets in a dose pack JAJA ([facility]) duloxetine 30 MG Delayed Release Oral Ca psule duloxetine 30 mg capsule,delayed release TAKE ONE CAPSULE BY MOUTH EVERY DAY duloxetine 30 mg capsule,delayed release TAKE ONE CAPSULE BY MOUTH EVERY DAY completed duloxetine 30 MG Delayed Release Oral Capsule [facility] ([facility]) paroxetine 40 mg tablet [id number] complet ed paroxetine hydrochloride 40 MG Oral Tablet JAJA ([facility]) Clonidine Hydrochloride 0.1 MG Oral Tabl et clonidine HCl 0.1 mg tablet TAKE 1/2 TO 1 TABLET BY MOUTH TWO TIMES A DAY NEEDED FOR ANXIETY clonidine HCl 0.1 mg tablet TAKE 1/2 TO 1 TABLET BY MOUTH TWO TIMES A DAY NEEDED FOR ANXIETY completed clonidine hydrochlorid e 0.1 MG Oral Tablet JAJA ([facility]) Oxybutynin chloride 5 MG Oral Tablet oxy butynin chloride 5 mg tablet TAKE 4 TABLETS BY MOUTH EVERY EVENING oxybutynin chloride 5 mg tablet TAKE 4 T ABLETS BY MOUTH EVERY EVENING completed oxybutynin chloride 5 MG Oral Tablet [facility] ([facility]) paroxetine HCl 50 mg once daily complete d Paxil JAJA ([facility]) Sertraline 50 MG Oral Tablet sertraline 50 mg tablet sertraline 50 mg tablet completed sertraline 50 MG Oral Tablet [facility] ([facility]) clonidine hcl 0.1 mg tabs compl eted clonidine hcl 0.1 mg tabs JAJA ([facility]) Lurasidone Hydrochloride 60 MG Oral Tabl et [Latuda] Latuda 60 mg tablet once daily Latuda 60 mg tablet once daily complet ed lurasidone hydrochloride 60 MG Oral Tablet [Latuda] JAJA ([facility]) Acetaminophen 300 MG / Codeine Phosphate 30 MG Oral Tablet acetaminophen 300 mg- codeine 30 mg tablet TAKE ONE TABLET BY MOUTH EVERY 12 HOURS NEEDED FOR PAIN MAXIMUM DAILY DOSE 2 TABLETS acetaminophen 300 mg-codeine 30 mg table t TAKE ONE TABLET BY MOUTH EVERY 12 HOURS NEEDED FOR PAIN MAXIMUM DAILY DOSE 2 TABLETS completed acetam inophen 300 MG / codeine phosphate 30 MG Oral Tablet [facility] ([facility]) clonidine hcl 0.1 mg tabs compl eted clonidine hcl 0.1 mg tabs [facility] ([facility]) Sulfamethoxazole 800 MG / Trimethoprim 1 60 MG Oral Tablet sulfamethoxazole 800 mg-trimethoprim 160 mg tablet TAKE ONE TABLET BY MOUTH TWICE A DAY FOR 7 DAYS sulfamethoxazole 800 mg-trimethoprim 160 mg tablet TAKE ONE TABLET BY MOUTH TWICE A DAY FOR 7 DAYS completed sulfamethoxazole 800 MG / trimethoprim 160 MG Oral Tablet [facility] ([facility]) aripiprazole 5 mg tabs completed aripiprazole 5 mg tabs [facility] ([facility]) Lurasidone Hydrochloride 60 MG Oral Tabl et [Latuda] Latuda 60 mg tablet once daily Latuda 60 mg tablet once daily complet ed lurasidone hydrochloride 60 MG Oral Tablet [Latuda] JAJA ([facility]) celecoxib 100 MG Oral Capsule celecoxib 100 mg capsule TAKE ONE CAPSULE BY MOUTH TWO TIMES A DAY NEEDED celecoxib 100 mg capsule TAKE ONE CAPSUL E BY MOUTH TWO TIMES A DAY NEEDED completed celecoxib 100 MG Oral Capsule [facility] ([facility]) paroxetine 10 mg tablet TAKE ONE TABLET BY MOUTH EVERY DAY [id number] completed paroxetine hydrochloride 10 MG O ral Tablet JAJA ([facility]) Lurasidone Hydrochloride 60 MG Oral Tabl et [Latuda] Latuda 60 mg tablet once daily Latuda 60 mg tablet once daily complet ed lurasidone hydrochloride 60 MG Oral Tablet [Latuda] JAJA ([facility]) Alprazolam 0.25 MG Oral Tablet alprazolam 0.25 mg tabl et alprazolam 0.25 mg tablet completed alprazolam 0.25 MG Oral Tablet JAJA ([facility]) duloxetine hydrochloride 60 mg cpep completed duloxetine hydrochloride 60 mg cpep JAJA ([facility]) duloxetine 30 MG Delayed Release Oral Ca psule duloxetine 30 mg capsule,delayed release TAKE ONE CAPSULE BY MOUTH EVERY DAY duloxetine 30 mg capsule,delayed release TAKE ONE CAPSULE BY MOUTH EVERY DAY completed duloxetine 30 MG Delayed Release Oral Capsule JAJA ([facility]) Oxycodone Hydrochloride 5 MG Oral Tablet oxycodone 5 mg tablet TAKE ONE TO TWO TABLETS BY MOUTH EVERY 4 HOURS NEEDED FOR PAIN MAXIMUM DAILY DOSE 10 oxycodone 5 mg tablet TAKE ONE TO TWO TABLETS BY MOUTH EVERY 4 HOURS NEEDED FOR PAIN MAXIMUM DAILY DOSE 10 compl eted oxycodone hydrochloride 5 MG Oral Tablet JAJA ([facility]) duloxetine hydrochloride 60 mg cpep completed duloxetine hydrochloride 60 mg cpep JAJA ([facility]) Cephalexin 500 MG Oral Capsule cephalexin 500 mg capsu le cephalexin 500 mg capsule completed cephalexin 500 MG Oral Capsule JAJA ([facility]) zolpidem tartrate 10 mg tabs co mpleted zolpidem tartrate 10 mg tabs JA[facility] ([facility]) Methocarbamol 500 MG Oral Tablet methocarbamol 500 mg tablet methocarbamol 500 mg tablet completed methocarbamo l 500 MG Oral Tablet JAJA ([facility]) zolpidem tartrate 10 mg tabs co mpleted zolpidem tartrate 10 mg tabs JAJA ([facility]) Oxycodone Hydrochloride 15 MG Oral Table t oxycodone 15 mg tablet TAKE 1/2 TO 1 TABLET BY MOUTH EVERY 4 TO 6 HOURS NEEDED FOR PAIN MODERATE TO SEVERE MAXIMUM DAILY DOSE 6 oxycodone 15 mg tablet TAKE 1/2 TO 1 TAB LET BY MOUTH EVERY 4 TO 6 HOURS NEEDED FOR PAIN MODERATE TO SEVERE MAXIMUM DAILY DOSE 6 completed oxycodone hydroc hloride 15 MG Oral Tablet JAJA ([facility]) Lurasidone Hydrochloride 80 MG Oral Tabl et [Latuda] Latuda 80 mg tablet TAKE 1 TABLET BY MOUTH WITH 350 CALORIE SNACK OR IMMEDIATELY AFTER DINER Latuda 80 mg tablet TAKE 1 TABLET BY MOUTH WITH 350 CALORIE SNACK OR IMMEDIATELY AFTER DINER completed lurasidone hyd rochloride 80 MG Oral Tablet [Latuda] JAJA ([facility]) Hydroxyzine Hydrochloride 25 MG Oral Tab let hydroxyzine HCl 25 mg tablet TAKE 1 2 TABLETS BY MOUTH TWO TIMES A DAY NEEDED FOR ANXIETY hydroxyzine HCl 25 mg tablet TAKE 1 2 TABLETS BY MOUTH TWO TIMES A DAY NEEDED FOR ANXIETY completed hydroxyzine hydrochloride 25 MG Oral Tablet JAJA ([facility]) clonidine hcl 0.1 mg tabs compl eted clonidine hcl 0.1 mg tabs JAJA ([facility]) Cephalexin 500 MG Oral Capsule cephalexin 500 mg capsu le cephalexin 500 mg capsule completed cephalexin 500 MG Oral Capsule JAJA ([facility]) Clonidine Hydrochloride 0.1 MG Oral Tabl et clonidine HCl 0.1 mg tablet TAKE 1/2 TO 1 TABLET BY MOUTH TWO TIMES A DAY NEEDED FOR ANXIETY clonidine HCl 0.1 mg tablet TAKE 1/2 TO 1 TABLET BY MOUTH TWO TIMES A DAY NEEDED FOR ANXIETY completed clonidine hydrochlorid e 0.1 MG Oral Tablet JAJA ([facility]) paroxetine 40 mg tablet [id number] complet ed paroxetine hydrochloride 40 MG Oral Tablet JA[facility] ([facility]) Sertraline 50 MG Oral Tablet sertraline 50 mg tablet sertraline 50 mg tablet completed sertraline 50 MG Oral Tablet JAJA ([facility]) Prednisone 20 MG Oral Tablet prednisone 20 mg tablet TAKE ONE TABLET BY MOUTH TWICE A DAY prednisone 20 mg tablet TAKE ONE TABLET BY MOUTH TWICE A DAY completed prednisone 20 MG Ora l Tablet JAJA ([facility]) clonidine hcl 0.1 mg tabs compl eted clonidine hcl 0.1 mg tabs JAJA ([facility]) tizanidine 4 MG Oral Tablet tizanidine 4 mg tablet TAKE ONE TABLET BY MOUTH FOUR TIMES A DAY NEEDED tizanidine 4 mg tablet TAKE ONE TABLET B Y MOUTH FOUR TIMES A DAY NEEDED completed tizanidine 4 MG Oral Tablet JAJA ([facility]) Cephalexin 500 MG Oral Capsule cephalexin 500 mg capsu le cephalexin 500 mg capsule completed cephalexin 500 MG Oral Capsule JAJA ([facility]) aripiprazole 5 MG Oral Tablet aripiprazo le 5 mg tablet TAKE ONE TABLET BY MOUTH AT BEDTIME aripiprazole 5 mg tablet TAKE ONE TABLET BY MOUTH AT BEDTIME completed aripiprazole 5 MG Oral Ta blet JAJA ([facility]) pregabalin 75 MG Oral Capsule pregabalin 75 mg capsule prega balin 75 mg capsule completed pregabalin 75 MG Oral Capsule JAJA ([facility]) Cephalexin 500 MG Oral Capsule cephalexin 500 mg capsu le cephalexin 500 mg capsule completed cephalexin 500 MG Oral Capsule JAJA ([facility]) latuda 80 mg tabs completed l atuda 80 mg tabs JAJA ([facility]) pregabalin 75 MG Oral Capsule pregabalin 75 mg capsule prega balin 75 mg capsule completed pregabalin 75 MG Oral Capsule JAAJ ([facility]) Cephalexin 500 MG Oral Capsule cephalexin 500 mg capsu le cephalexin 500 mg capsule completed cephalexin 500 MG Oral Capsule JAJA ([facility]) Lurasidone Hydrochloride 20 MG Oral Tabl et [Latuda] Latuda 20 mg tablet TAKE 1 TABLET BY MOUTH EVERY DAY WITH A 350 CALORIE SNACK OR IMMEDIATELY AFTER DINNER Latuda 20 mg tablet TAKE 1 TABLET BY MOUTH EVERY DAY WITH A 350 CALORIE SNACK OR IMMEDIATELY AFTER DINNER completed lurasidone hydrochloride 20 MG Oral Tablet [Latuda] JAJA ([facility]) Oxybutynin chloride 5 MG Oral Tablet oxy butynin chloride 5 mg tablet TAKE 4 TABLETS BY MOUTH EVERY EVENING oxybutynin chloride 5 mg tablet TAKE 4 T ABLETS BY MOUTH EVERY EVENING completed oxybutynin chloride 5 MG Oral Tablet JAJA ([facility]) Lurasidone Hydrochloride 60 MG Oral Tabl et [Latuda] Latuda 60 mg tablet once daily Latuda 60 mg tablet once daily complet ed lurasidone hydrochloride 60 MG Oral Tablet [Latuda] JAJA ([facility]) duloxetine 30 MG Delayed Release Oral Ca psule duloxetine 30 mg capsule,delayed release TAKE ONE CAPSULE BY MOUTH EVERY DAY duloxetine 30 mg capsule,delayed release TAKE ONE CAPSULE BY MOUTH EVERY DAY completed duloxetine 30 MG Delayed Release Oral Capsule JAJA ([facility]) methylprednisolone 4 mg tablets in a dose pack USE DIRECTED [id number] completed methylprednisolone 4 mg tabl ets in a dose pack JAJA ([facility]) Sertraline 50 MG Oral Tablet sertraline 50 mg tablet sertraline 50 mg tablet completed sertraline 50 MG Oral Tablet JA[facility] ([facility]) Acetaminophen 300 MG / Codeine Phosphate 30 MG Oral Tablet acetaminophen 300 mg- codeine 30 mg tablet TAKE ONE TABLET BY MOUTH EVERY 12 HOURS NEEDED FOR PAIN MAXIMUM DAILY DOSE 2 TABLETS acetaminophen 300 mg-codeine 30 mg table t TAKE ONE TABLET BY MOUTH EVERY 12 HOURS NEEDED FOR PAIN MAXIMUM DAILY DOSE 2 TABLETS completed acetam inophen 300 MG / codeine phosphate 30 MG Oral Tablet JAJA ([facility]) Phenazopyridine hydrochloride 200 MG Ora l Tablet phenazopyridine 200 mg tablet TAKE ONE TABLET BY MOUTH THREE TIMES A DAY AFTER MEALS FOR 2 DAYS phenazopyridine 200 mg tablet TAKE ONE TABLET BY MOUTH THREE TIMES A DAY AFTER MEALS FOR 2 DAYS completed phenazopyridine hydrochloride 200 MG Oral Tablet [facility] ([facility]) albuterol sulfate HFA 90 mcg/actuation aerosol inhaler [id number] completed [id number] 200 ACTUAT albuterol 0.09 MG/ACTUAT Metered Dose Inhaler JAJA ([facility]) pregabalin 75 MG Oral Capsule pregabalin 75 mg capsule prega balin 75 mg capsule completed pregabalin 75 MG Oral Capsule JA[facility] ([facility]) latuda 80 mg tabs completed l atuda 80 mg tabs JAJA ([facility]) tizanidine 4 MG Oral Tablet tizanidine 4 mg tablet TAKE ONE TABLET BY MOUTH FOUR TIMES A DAY NEEDED tizanidine 4 mg tablet TAKE ONE TABLET B Y MOUTH FOUR TIMES A DAY NEEDED completed tizanidine 4 MG Oral Tablet JAJA ([facility]) aripiprazole 5 mg tabs completed aripiprazole 5 mg tabs [facility] ([facility]) paroxetine 40 mg tablet [id number] complet ed paroxetine hydrochloride 40 MG Oral Tablet JAJA ([facility]) Hydroxyzine Hydrochloride 25 MG Oral Tab let hydroxyzine HCl 25 mg tablet TAKE 1 2 TABLETS BY MOUTH TWO TIMES A DAY NEEDED FOR ANXIETY hydroxyzine HCl 25 mg tablet TAKE 1 2 TABLETS BY MOUTH TWO TIMES A DAY NEEDED FOR ANXIETY completed hydroxyzine hydrochloride 25 MG Oral Tablet JAJA ([facility]) celecoxib 100 MG Oral Capsule celecoxib 100 mg capsule TAKE ONE CAPSULE BY MOUTH TWO TIMES A DAY NEEDED celecoxib 100 mg capsule TAKE ONE CAPSUL E BY MOUTH TWO TIMES A DAY NEEDED completed celecoxib 100 MG Oral Capsule JAJA ([facility]) valacyclovir 500 MG Oral Tablet valacyclovir 500 mg ta blet valacyclovir 500 mg tablet completed valacyclovir 50 0 MG Oral Tablet JAJA ([facility]) paroxetine HCl 50 mg once daily complete d Paxil JAJA ([facility]) celecoxib 200 mg caps completed celecoxib 200 mg caps JAJA ([facility]) Oxycodone Hydrochloride 5 MG Oral Tablet oxycodone 5 mg tablet TAKE ONE TO TWO TABLETS BY MOUTH EVERY 4 HOURS NEEDED FOR PAIN MAXIMUM DAILY DOSE 10 oxycodone 5 mg tablet TAKE ONE TO TWO TABLETS BY MOUTH EVERY 4 HOURS NEEDED FOR PAIN MAXIMUM DAILY DOSE 10 compl eted oxycodone hydrochloride 5 MG Oral Tablet JAJA ([facility]) paroxetine 40 mg tablet [id number] complet ed paroxetine hydrochloride 40 MG Oral Tablet JA[facility] ([facility]) aripiprazole 5 mg tabs completed aripiprazole 5 mg tabs JAJA ([facility]) pregabalin 100 mg caps completed pregabalin 100 mg caps JAJA ([facility]) paroxetine HCl 50 mg once daily complete d Paxil JAJA ([facility]) Carisoprodol 350 MG Oral Tablet carisoprodol 350 mg ta blet carisoprodol 350 mg tablet completed carisoprodol 35 0 MG Oral Tablet JAJA ([facility]) Carisoprodol 350 MG Oral Tablet carisoprodol 350 mg ta blet carisoprodol 350 mg tablet completed carisoprodol 35 0 MG Oral Tablet JAJA ([facility]) Fluconazole 150 MG Oral Tablet fluconazo le 150 mg tablet TAKE 1 TABLET BY MOUTH FOR 1 DOSE fluconazole 150 mg tablet TAKE 1 TABLET BY MOUTH FOR 1 DOSE completed fluconazole 150 MG Oral T ablet JAJA ([facility]) aripiprazole 5 MG Oral Tablet aripiprazo le 5 mg tablet TAKE ONE TABLET BY MOUTH AT BEDTIME aripiprazole 5 mg tablet TAKE ONE TABLET BY MOUTH AT BEDTIME completed aripiprazole 5 MG Oral Ta blet JAJA ([facility]) Oxycodone Hydrochloride 15 MG Oral Table t oxycodone 15 mg tablet TAKE 1/2 TO 1 TABLET BY MOUTH EVERY 4 TO 6 HOURS NEEDED FOR PAIN MODERATE TO SEVERE MAXIMUM DAILY DOSE 6 oxycodone 15 mg tablet TAKE 1/2 TO 1 TAB LET BY MOUTH EVERY 4 TO 6 HOURS NEEDED FOR PAIN MODERATE TO SEVERE MAXIMUM DAILY DOSE 6 completed oxycodone hydroc hloride 15 MG Oral Tablet JA[facility] ([facility]) paroxetine HCl 50 mg once daily complete d Paxil JAJA ([facility]) Methocarbamol 500 MG Oral Tablet methocarbamol 500 mg tablet methocarbamol 500 mg tablet completed methocarbamo l 500 MG Oral Tablet [facility] ([facility]) paroxetine 10 mg tablet TAKE ONE TABLET BY MOUTH EVERY DAY [id number] completed paroxetine hydrochloride 10 MG O ral Tablet [facility] ([facility]) latuda 80 mg tabs completed l atuda 80 mg tabs [facility] ([facility]) Clonidine Hydrochloride 0.1 MG Oral Tabl et clonidine HCl 0.1 mg tablet TAKE 1/2 TO 1 TABLET BY MOUTH TWO TIMES A DAY NEEDED FOR ANXIETY clonidine HCl 0.1 mg tablet TAKE 1/2 TO 1 TABLET BY MOUTH TWO TIMES A DAY NEEDED FOR ANXIETY completed clonidine hydrochlorid e 0.1 MG Oral Tablet [facility] ([facility]) paroxetine 10 mg tablet TAKE ONE TABLET BY MOUTH EVERY DAY [id number] completed paroxetine hydrochloride 10 MG O ral Tablet JAJA ([facility]) Oxycodone Hydrochloride 5 MG Oral Tablet oxycodone 5 mg tablet TAKE ONE TABLET BY MOUTH EVERY 4 HOURS NEEDED FOR PAIN MAXIMUM DAILY DOSE 6 oxycodone 5 mg tablet TAKE ONE TABLET BY MOUTH EVERY 4 HOURS NEEDED FOR PAIN MAXIMUM DAILY DOSE 6 completed oxycodone hyd rochloride 5 MG Oral Tablet JA[facility] ([facility]) methylprednisolone 4 mg tablets in a dose pack FOLLOW PACKAG E DIRECTIONS [id number] completed methylpredniso lone 4 mg tablets in a dose pack JAJA ([facility]) Cephalexin 500 MG Oral Capsule cephalexin 500 mg capsu le cephalexin 500 mg capsule completed cephalexin 500 MG Oral Capsule [facility] ([facility]) 24 HR Nicotine 0.583 MG/HR Transdermal P atch nicotine 14 mg/24 hr daily transdermal patch APPLY ONE PATCH TO SKIN ONCE A DAY nicotine 14 mg/24 hr daily transdermal patch APPLY ONE PATCH TO SKIN ONCE A DAY completed 24 HR nicotine 0.583 MG/HR Transdermal System [facility] ([facility]) Clonidine Hydrochloride 0.1 MG Oral Tabl et clonidine HCl 0.1 mg tablet TAKE 1/2 TO 1 TABLET BY MOUTH TWO TIMES A DAY NEEDED FOR ANXIETY clonidine HCl 0.1 mg tablet TAKE 1/2 TO 1 TABLET BY MOUTH TWO TIMES A DAY NEEDED FOR ANXIETY completed clonidine hydrochlorid e 0.1 MG Oral Tablet [facility] ([facility]) aripiprazole 5 MG Oral Tablet aripiprazo le 5 mg tablet TAKE ONE TABLET BY MOUTH AT BEDTIME aripiprazole 5 mg tablet TAKE ONE TABLET BY MOUTH AT BEDTIME completed aripiprazole 5 MG Oral Ta blet [facility] ([facility]) Lurasidone Hydrochloride 80 MG Oral Tabl et [Latuda] Latuda 80 mg tablet TAKE 1 TABLET BY MOUTH WITH 350 CALORIE SNACK OR IMMEDIATELY AFTER DINER Latuda 80 mg tablet TAKE 1 TABLET BY MOUTH WITH 350 CALORIE SNACK OR IMMEDIATELY AFTER DINER completed lurasidone hyd rochloride 80 MG Oral Tablet [Latuda] [facility]JA ([facility]) Clonidine Hydrochloride 0.1 MG Oral Tabl et clonidine HCl 0.1 mg tablet TAKE 1/2 TO 1 TABLET BY MOUTH TWO TIMES A DAY NEEDED FOR ANXIETY clonidine HCl 0.1 mg tablet TAKE 1/2 TO 1 TABLET BY MOUTH TWO TIMES A DAY NEEDED FOR ANXIETY completed clonidine hydrochlorid e 0.1 MG Oral Tablet [facility] ([facility]) albuterol sulfate HFA 90 mcg/actuation aerosol inhaler [id number] completed [id number] 200 ACTUAT albuterol 0.09 MG/ACTUAT Metered Dose Inhaler [facility] ([facility]) Oxycodone Hydrochloride 5 MG Oral Tablet oxycodone 5 mg tablet TAKE ONE TO TWO TABLETS BY MOUTH EVERY 4 HOURS NEEDED FOR PAIN MAXIMUM DAILY DOSE 10 oxycodone 5 mg tablet TAKE ONE TO TWO TABLETS BY MOUTH EVERY 4 HOURS NEEDED FOR PAIN MAXIMUM DAILY DOSE 10 compl eted oxycodone hydrochloride 5 MG Oral Tablet [facility] ([facility]) Acetaminophen 300 MG / Codeine Phosphate 30 MG Oral Tablet acetaminophen 300 mg- codeine 30 mg tablet TAKE ONE TABLET BY MOUTH EVERY 12 HOURS NEEDED FOR PAIN MAXIMUM DAILY DOSE 2 TABLETS acetaminophen 300 mg-codeine 30 mg table t TAKE ONE TABLET BY MOUTH EVERY 12 HOURS NEEDED FOR PAIN MAXIMUM DAILY DOSE 2 TABLETS completed acetam inophen 300 MG / codeine phosphate 30 MG Oral Tablet [facility] ([facility]) Cephalexin 500 MG Oral Capsule cephalexin 500 mg capsu le cephalexin 500 mg capsule completed cephalexin 500 MG Oral Capsule [facility] ([facility]) Sertraline 50 MG Oral Tablet sertraline 50 mg tablet sertraline 50 mg tablet completed sertraline 50 MG Oral Tablet [facility] ([facility]) aripiprazole 5 mg tabs completed aripiprazole 5 mg tabs [facility] ([facility]) tizanidine 4 MG Oral Tablet tizanidine 4 mg tablet TAKE ONE TABLET BY MOUTH FOUR TIMES A DAY NEEDED tizanidine 4 mg tablet TAKE ONE TABLET B Y MOUTH FOUR TIMES A DAY NEEDED completed tizanidine 4 MG Oral Tablet [facility] ([facility]) Oxybutynin chloride 5 MG Oral Tablet oxy butynin chloride 5 mg tablet TAKE 4 TABLETS BY MOUTH EVERY EVENING oxybutynin chloride 5 mg tablet TAKE 4 T ABLETS BY MOUTH EVERY EVENING completed oxybutynin chloride 5 MG Oral Tablet [facility] ([facility]) latuda 80 mg tabs completed l atuda 80 mg tabs [facility] ([facility]) methylprednisolone 4 mg tablets in a dose pack USE DIRECTED [id number] completed methylprednisolone 4 mg tabl ets in a dose pack [facility] ([facility]) tizanidine hydrochloride 4 mg tabs completed tizanidine hydrochloride 4 mg tabs [facility] ([facility]) Zolpidem tartrate 10 MG Oral Tablet zolp idem 10 mg tablet TAKE ONE TABLET BY MOUTH AT BEDTIME NEEDED FOR SLEEP MAXIMUM DAILY DOSE 1 zolpidem 10 mg tablet TAKE ONE TABLET BY MOUTH AT BEDTIME NEEDED FOR SLEEP MAXIMUM DAILY DOSE 1 completed zolpidem tart rate 10 MG Oral Tablet [facility] ([facility]) Hydroxyzine Hydrochloride 25 MG Oral Tab let hydroxyzine HCl 25 mg tablet TAKE 1 2 TABLETS BY MOUTH TWO TIMES A DAY NEEDED FOR ANXIETY hydroxyzine HCl 25 mg tablet TAKE 1 2 TABLETS BY MOUTH TWO TIMES A DAY NEEDED FOR ANXIETY completed hydroxyzine hydrochloride 25 MG Oral Tablet [facility] ([facility]) Zolpidem tartrate 10 MG Oral Tablet zolp idem 10 mg tablet TAKE ONE TABLET BY MOUTH AT BEDTIME NEEDED FOR SLEEP MAXIMUM DAILY DOSE 1 zolpidem 10 mg tablet TAKE ONE TABLET BY MOUTH AT BEDTIME NEEDED FOR SLEEP MAXIMUM DAILY DOSE 1 completed zolpidem tart rate 10 MG Oral Tablet [facility] ([facility]) Carisoprodol 350 MG Oral Tablet carisoprodol 350 mg ta blet carisoprodol 350 mg tablet completed carisoprodol 35 0 MG Oral Tablet [facility] ([facility]) Acetaminophen 300 MG / Codeine Phosphate 30 MG Oral Tablet acetaminophen 300 mg- codeine 30 mg tablet TAKE ONE TABLET BY MOUTH EVERY 12 HOURS NEEDED FOR PAIN MAXIMUM DAILY DOSE 2 TABLETS acetaminophen 300 mg-codeine 30 mg table t TAKE ONE TABLET BY MOUTH EVERY 12 HOURS NEEDED FOR PAIN MAXIMUM DAILY DOSE 2 TABLETS completed acetam inophen 300 MG / codeine phosphate 30 MG Oral Tablet [facility] ([facility]) aripiprazole 5 MG Oral Tablet aripiprazo le 5 mg tablet TAKE ONE TABLET BY MOUTH AT BEDTIME aripiprazole 5 mg tablet TAKE ONE TABLET BY MOUTH AT BEDTIME completed aripiprazole 5 MG Oral Ta blet JAJA ([facility]) albuterol sulfate HFA 90 mcg/actuation aerosol inhaler [id number] completed [id number] 200 ACTUAT albuterol 0.09 MG/ACTUAT Metered Dose Inhaler JAJA ([facility]) tizanidine 4 MG Oral Tablet tizanidine 4 mg tablet TAKE ONE TABLET BY MOUTH FOUR TIMES A DAY NEEDED tizanidine 4 mg tablet TAKE ONE TABLET B Y MOUTH FOUR TIMES A DAY NEEDED completed tizanidine 4 MG Oral Tablet JA[facility] ([facility]) Lurasidone Hydrochloride 80 MG Oral Tabl et [Latuda] Latuda 80 mg tablet TAKE 1 TABLET BY MOUTH WITH 350 CALORIE SNACK OR IMMEDIATELY AFTER DINER Latuda 80 mg tablet TAKE 1 TABLET BY MOUTH WITH 350 CALORIE SNACK OR IMMEDIATELY AFTER DINER completed lurasidone hyd rochloride 80 MG Oral Tablet [Latuda] JAJA ([facility]) tizanidine hydrochloride 4 mg tabs completed tizanidine hydrochloride 4 mg tabs [facility] ([facility]) celecoxib 200 MG Oral Capsule celecoxib 200 mg capsule celec oxib 200 mg capsule completed celecoxib 200 MG Oral Capsule [facility] ([facility]) 24 HR Nicotine 0.583 MG/HR Transdermal P atch nicotine 14 mg/24 hr daily transdermal patch APPLY ONE PATCH TO SKIN ONCE A DAY nicotine 14 mg/24 hr daily transdermal patch APPLY ONE PATCH TO SKIN ONCE A DAY completed 24 HR nicotine 0.583 MG/HR Transdermal System JA[facility] ([facility]) Fluconazole 150 MG Oral Tablet fluconazo le 150 mg tablet TAKE 1 TABLET BY MOUTH FOR 1 DOSE fluconazole 150 mg tablet TAKE 1 TABLET BY MOUTH FOR 1 DOSE completed fluconazole 150 MG Oral T ablet [facility] ([facility]) duloxetine hydrochloride 60 mg cpep completed duloxetine hydrochloride 60 mg cpep [facility] ([facility]) zolpidem tartrate 10 mg tabs co mpleted zolpidem tartrate 10 mg tabs [facility] ([facility]) valacyclovir 500 MG Oral Tablet valacyclovir 500 mg ta blet valacyclovir 500 mg tablet completed valacyclovir 50 0 MG Oral Tablet [facility] ([facility]) albuterol sulfate HFA 90 mcg/actuation aerosol inhaler [id number] completed [id number] 200 ACTUAT albuterol 0.09 MG/ACTUAT Metered Dose Inhaler JA[facility] ([facility]) tizanidine 4 MG Oral Tablet tizanidine 4 mg tablet TAKE ONE TABLET BY MOUTH FOUR TIMES A DAY NEEDED tizanidine 4 mg tablet TAKE ONE TABLET B Y MOUTH FOUR TIMES A DAY NEEDED completed tizanidine 4 MG Oral Tablet JAJA ([facility]) aripiprazole 5 MG Oral Tablet ARIPiprazole 5 MG Oral T ablet (ABILIFY) ARIPiprazole 5 MG Oral Tablet (ABILIFY) aborted aripiprazole 5 mg tablet TAKE ONE TABLET BY MOUTH EVERY DAY [facility] aripiprazole 5 mg tabs completed aripiprazole 5 mg tabs JA[facility] ([facility]) Clonidine Hydrochloride 0.1 MG Oral Tabl et clonidine HCl 0.1 mg tablet TAKE 1/2 TO 1 TABLET BY MOUTH TWO TIMES A DAY NEEDED FOR ANXIETY clonidine HCl 0.1 mg tablet TAKE 1/2 TO 1 TABLET BY MOUTH TWO TIMES A DAY NEEDED FOR ANXIETY completed clonidine hydrochlorid e 0.1 MG Oral Tablet JA[facility] ([facility]) Alprazolam 0.25 MG Oral Tablet alprazolam 0.25 mg tabl et alprazolam 0.25 mg tablet completed alprazolam 0.25 MG Oral Tablet JA[facility] ([facility]) pregabalin 100 mg caps completed pregabalin 100 mg caps JA[facility] ([facility]) aripiprazole 5 MG Oral Tablet aripiprazo le 5 mg tablet TAKE ONE TABLET BY MOUTH AT BEDTIME aripiprazole 5 mg tablet TAKE ONE TABLET BY MOUTH AT BEDTIME completed aripiprazole 5 MG Oral Ta blet JAJA ([facility]) Lurasidone Hydrochloride 20 MG Oral Tabl et [Latuda] Latuda 20 mg tablet TAKE 1 TABLET BY MOUTH EVERY DAY WITH A 350 CALORIE SNACK OR IMMEDIATELY AFTER DINNER Latuda 20 mg tablet TAKE 1 TABLET BY MOUTH EVERY DAY WITH A 350 CALORIE SNACK OR IMMEDIATELY AFTER DINNER completed lurasidone hydrochloride 20 MG Oral Tablet [Latuda] JAJA ([facility]) Oxycodone Hydrochloride 5 MG Oral Tablet oxycodone 5 mg tablet TAKE ONE TO TWO TABLETS BY MOUTH EVERY 4 HOURS NEEDED FOR PAIN MAXIMUM DAILY DOSE 10 oxycodone 5 mg tablet TAKE ONE TO TWO TABLETS BY MOUTH EVERY 4 HOURS NEEDED FOR PAIN MAXIMUM DAILY DOSE 10 compl eted oxycodone hydrochloride 5 MG Oral Tablet [facility] ([facility]) valacyclovir 500 MG Oral Tablet valacyclovir 500 mg ta blet valacyclovir 500 mg tablet completed valacyclovir 50 0 MG Oral Tablet JA[facility] ([facility]) Fluconazole 150 MG Oral Tablet fluconazo le 150 mg tablet TAKE 1 TABLET BY MOUTH FOR 1 DOSE fluconazole 150 mg tablet TAKE 1 TABLET BY MOUTH FOR 1 DOSE completed fluconazole 150 MG Oral T ablet JA[facility] ([facility]) paroxetine 40 mg tablet [id number] complet ed paroxetine hydrochloride 40 MG Oral Tablet [facility] ([facility]) clonidine hcl 0.1 mg tabs compl eted clonidine hcl 0.1 mg tabs [facility] ([facility]) celecoxib 200 mg caps completed celecoxib 200 mg caps JA[facility] ([facility]) tizanidine hydrochloride 4 mg tabs completed tizanidine hydrochloride 4 mg tabs JAJA ([facility]) duloxetine hydrochloride 60 mg cpep completed duloxetine hydrochloride 60 mg cpep JAAJ ([facility]) Methocarbamol 500 MG Oral Tablet methocarbamol 500 mg tablet methocarbamol 500 mg tablet completed methocarbamo l 500 MG Oral Tablet JAJA ([facility]) tizanidine 4 MG Oral Tablet tizanidine 4 mg tablet TAKE ONE TABLET BY MOUTH FOUR TIMES A DAY NEEDED tizanidine 4 mg tablet TAKE ONE TABLET B Y MOUTH FOUR TIMES A DAY NEEDED completed tizanidine 4 MG Oral Tablet JAJA ([facility]) celecoxib 200 MG Oral Capsule celecoxib 200 mg capsule celec oxib 200 mg capsule completed celecoxib 200 MG Oral Capsule JA[facility] ([facility]) paroxetine 10 mg tablet TAKE ONE TABLET BY MOUTH EVERY DAY [id number] completed paroxetine hydrochloride 10 MG O ral Tablet JAJA ([facility]) aripiprazole 5 MG Oral Tablet aripiprazo le 5 mg tablet TAKE ONE TABLET BY MOUTH AT BEDTIME aripiprazole 5 mg tablet TAKE ONE TABLET BY MOUTH AT BEDTIME completed aripiprazole 5 MG Oral Ta blet JAJA ([facility]) duloxetine hydrochloride 60 mg cpep completed duloxetine hydrochloride 60 mg cpep JAJA ([facility]) Cyclobenzaprine hydrochloride 10 MG Oral Tablet cyclobenzaprine 10 mg tablet TAKE ONE TABLET BY MOUTH EVERY 8 HOURS NEEDED MUSCLE PAIN cyclobenzaprine 10 mg tablet TAKE ONE TABLET BY MOUTH EVERY 8 HOURS NEEDED MUSCLE PAIN completed cyclobenzaprine hydrochlo ride 10 MG Oral Tablet JA[facility] ([facility]) valacyclovir 500 MG Oral Tablet valacyclovir 500 mg ta blet valacyclovir 500 mg tablet completed valacyclovir 50 0 MG Oral Tablet JA[facility] ([facility]) Oxybutynin chloride 5 MG Oral Tablet oxy butynin chloride 5 mg tablet TAKE 4 TABLETS BY MOUTH EVERY EVENING oxybutynin chloride 5 mg tablet TAKE 4 T ABLETS BY MOUTH EVERY EVENING completed oxybutynin chloride 5 MG Oral Tablet JAJA ([facility]) Hydroxyzine Hydrochloride 25 MG Oral Tab let hydroxyzine HCl 25 mg tablet TAKE 1 2 TABLETS BY MOUTH TWO TIMES A DAY NEEDED FOR ANXIETY hydroxyzine HCl 25 mg tablet TAKE 1 2 TABLETS BY MOUTH TWO TIMES A DAY NEEDED FOR ANXIETY completed hydroxyzine hydrochloride 25 MG Oral Tablet JAJA ([facility]) paroxetine HCl 50 mg once daily complete d Paxil JAJA ([facility]) Cephalexin 500 MG Oral Capsule cephalexin 500 mg capsu le cephalexin 500 mg capsule completed cephalexin 500 MG Oral Capsule JAJA ([facility]) Carisoprodol 350 MG Oral Tablet carisoprodol 350 mg ta blet carisoprodol 350 mg tablet completed carisoprodol 35 0 MG Oral Tablet JAJA ([facility]) Acetaminophen 300 MG / Codeine Phosphate 30 MG Oral Tablet acetaminophen 300 mg- codeine 30 mg tablet TAKE ONE TABLET BY MOUTH EVERY 12 HOURS NEEDED FOR PAIN MAXIMUM DAILY DOSE 2 TABLETS acetaminophen 300 mg-codeine 30 mg table t TAKE ONE TABLET BY MOUTH EVERY 12 HOURS NEEDED FOR PAIN MAXIMUM DAILY DOSE 2 TABLETS completed acetam inophen 300 MG / codeine phosphate 30 MG Oral Tablet JAJA ([facility]) Oxybutynin chloride 5 MG Oral Tablet oxy butynin chloride 5 mg tablet TAKE 4 TABLETS BY MOUTH EVERY EVENING oxybutynin chloride 5 mg tablet TAKE 4 T ABLETS BY MOUTH EVERY EVENING completed oxybutynin chloride 5 MG Oral Tablet JAJA ([facility]) duloxetine hydrochloride 60 mg cpep completed duloxetine hydrochloride 60 mg cpep JAJA ([facility]) valacyclovir 500 MG Oral Tablet valacyclovir 500 mg ta blet valacyclovir 500 mg tablet completed valacyclovir 50 0 MG Oral Tablet JA[facility] ([facility]) Hydroxyzine Hydrochloride 25 MG Oral Tab let hydroxyzine HCl 25 mg tablet TAKE 1 2 TABLETS BY MOUTH TWO TIMES A DAY NEEDED FOR ANXIETY hydroxyzine HCl 25 mg tablet TAKE 1 2 TABLETS BY MOUTH TWO TIMES A DAY NEEDED FOR ANXIETY completed hydroxyzine hydrochloride 25 MG Oral Tablet JAJA ([facility]) Oxybutynin chloride 5 MG Oral Tablet oxy butynin chloride 5 mg tablet TAKE 4 TABLETS BY MOUTH EVERY EVENING oxybutynin chloride 5 mg tablet TAKE 4 T ABLETS BY MOUTH EVERY EVENING completed oxybutynin chloride 5 MG Oral Tablet JAJA ([facility]) Hydroxyzine Hydrochloride 25 MG Oral Tab let hydroxyzine HCl 25 mg tablet TAKE 1 2 TABLETS BY MOUTH TWO TIMES A DAY NEEDED FOR ANXIETY hydroxyzine HCl 25 mg tablet TAKE 1 2 TABLETS BY MOUTH TWO TIMES A DAY NEEDED FOR ANXIETY completed hydroxyzine hydrochloride 25 MG Oral Tablet JAJA ([facility]) paroxetine HCl 50 mg once daily complete d Paxil [facility]JA ([facility]) albuterol sulfate HFA 90 mcg/actuation aerosol inhaler [id number] completed [id number] 200 ACTUAT albuterol 0.09 MG/ACTUAT Metered Dose Inhaler JAJA ([facility]) tizanidine 4 MG Oral Tablet tizanidine 4 mg tablet TAKE ONE TABLET BY MOUTH FOUR TIMES A DAY NEEDED tizanidine 4 mg tablet TAKE ONE TABLET B Y MOUTH FOUR TIMES A DAY NEEDED completed tizanidine 4 MG Oral Tablet JA[facility] ([facility]) Clonidine Hydrochloride 0.1 MG Oral Tabl et clonidine HCl 0.1 mg tablet TAKE 1/2 TO 1 TABLET BY MOUTH TWO TIMES A DAY NEEDED FOR ANXIETY clonidine HCl 0.1 mg tablet TAKE 1/2 TO 1 TABLET BY MOUTH TWO TIMES A DAY NEEDED FOR ANXIETY completed clonidine hydrochlorid e 0.1 MG Oral Tablet [facility] ([facility]) tramadol hydrochloride 50 MG Oral Tablet tramadol 50 m g tablet tramadol 50 mg tablet completed tramadol hydroc hloride 50 MG Oral Tablet JAJA ([facility]) Phenazopyridine hydrochloride 200 MG Ora l Tablet phenazopyridine 200 mg tablet TAKE ONE TABLET BY MOUTH THREE TIMES A DAY AFTER MEALS FOR 2 DAYS phenazopyridine 200 mg tablet TAKE ONE TABLET BY MOUTH THREE TIMES A DAY AFTER MEALS FOR 2 DAYS completed phenazopyridine hydrochloride 200 MG Oral Tablet JA[facility] ([facility]) Zolpidem tartrate 10 MG Oral Tablet zolp idem 10 mg tablet TAKE ONE TABLET BY MOUTH AT BEDTIME NEEDED FOR SLEEP MAXIMUM DAILY DOSE 1 zolpidem 10 mg tablet TAKE ONE TABLET BY MOUTH AT BEDTIME NEEDED FOR SLEEP MAXIMUM DAILY DOSE 1 completed zolpidem tart rate 10 MG Oral Tablet [facility] ([facility]) 24 HR Nicotine 0.583 MG/HR Transdermal P atch nicotine 14 mg/24 hr daily transdermal patch APPLY ONE PATCH TO SKIN ONCE A DAY nicotine 14 mg/24 hr daily transdermal patch APPLY ONE PATCH TO SKIN ONCE A DAY completed 24 HR nicotine 0.583 MG/HR Transdermal System JAJA ([facility]) duloxetine 30 MG Delayed Release Oral Ca psule duloxetine 30 mg capsule,delayed release duloxetine 30 mg capsule,delayed release completed duloxetine 30 MG Delayed Release Oral Capsule JAJA ([facility]) Carisoprodol 350 MG Oral Tablet carisoprodol 350 mg ta blet carisoprodol 350 mg tablet completed carisoprodol 35 0 MG Oral Tablet JAJA ([facility]) Lurasidone Hydrochloride 60 MG Oral Tabl et [Latuda] Latuda 60 mg tablet once daily Latuda 60 mg tablet once daily complet ed lurasidone hydrochloride 60 MG Oral Tablet [Latuda] JAJA ([facility]) Oxycodone Hydrochloride 5 MG Oral Tablet oxycodone 5 mg tablet TAKE ONE TO TWO TABLETS BY MOUTH EVERY 4 HOURS NEEDED FOR PAIN MAXIMUM DAILY DOSE 10 oxycodone 5 mg tablet TAKE ONE TO TWO TABLETS BY MOUTH EVERY 4 HOURS NEEDED FOR PAIN MAXIMUM DAILY DOSE 10 compl eted oxycodone hydrochloride 5 MG Oral Tablet JAJA ([facility]) Oxycodone Hydrochloride 15 MG Oral Table t oxycodone 15 mg tablet TAKE 1/2 TO 1 TABLET BY MOUTH EVERY 4 TO 6 HOURS NEEDED FOR PAIN MODERATE TO SEVERE MAXIMUM DAILY DOSE 6 oxycodone 15 mg tablet TAKE 1/2 TO 1 TAB LET BY MOUTH EVERY 4 TO 6 HOURS NEEDED FOR PAIN MODERATE TO SEVERE MAXIMUM DAILY DOSE 6 completed oxycodone hydroc hloride 15 MG Oral Tablet JAJA ([facility]) paroxetine 40 mg tablet [id number] complet ed paroxetine hydrochloride 40 MG Oral Tablet JA[facility] ([facility]) pregabalin 75 MG Oral Capsule pregabalin 75 mg capsule prega balin 75 mg capsule completed pregabalin 75 MG Oral Capsule JA[facility] ([facility]) pregabalin 75 MG Oral Capsule pregabalin 75 mg capsule prega balin 75 mg capsule completed pregabalin 75 MG Oral Capsule JAJA ([facility]) Oxycodone Hydrochloride 15 MG Oral Table t oxycodone 15 mg tablet TAKE 1/2 TO 1 TABLET BY MOUTH EVERY 4 TO 6 HOURS NEEDED FOR PAIN MODERATE TO SEVERE MAXIMUM DAILY DOSE 6 oxycodone 15 mg tablet TAKE 1/2 TO 1 TAB LET BY MOUTH EVERY 4 TO 6 HOURS NEEDED FOR PAIN MODERATE TO SEVERE MAXIMUM DAILY DOSE 6 completed oxycodone hydroc hloride 15 MG Oral Tablet JA[facility] ([facility]) 24 HR Nicotine 0.583 MG/HR Transdermal P atch nicotine 14 mg/24 hr daily transdermal patch APPLY ONE PATCH TO SKIN ONCE A DAY nicotine 14 mg/24 hr daily transdermal patch APPLY ONE PATCH TO SKIN ONCE A DAY completed 24 HR nicotine 0.583 MG/HR Transdermal System JAJA ([facility]) paroxetine 40 mg tablet [id number] complet ed paroxetine hydrochloride 40 MG Oral Tablet [facility] ([facility]) paroxetine 10 mg tablet TAKE ONE TABLET BY MOUTH EVERY DAY completed paroxetine hydrochloride 10 MG O ral Tablet JAJA ([facility]) Methocarbamol 500 MG Oral Tablet methocarbamol 500 mg tablet methocarbamol 500 mg tablet completed methocarbamo l 500 MG Oral Tablet JAJA ([facility]) tizanidine hydrochloride 4 mg tabs completed tizanidine hydrochloride 4 mg tabs JA[facility] ([facility]) Lurasidone Hydrochloride 80 MG Oral Tabl et [Latuda] Latuda 80 mg tablet TAKE 1 TABLET BY MOUTH WITH 350 CALORIE SNACK OR IMMEDIATELY AFTER DINER Latuda 80 mg tablet TAKE 1 TABLET BY MOUTH WITH 350 CALORIE SNACK OR IMMEDIATELY AFTER DINER completed lurasidone hyd rochloride 80 MG Oral Tablet [Latuda] JAAJ ([facility]) pregabalin 100 mg caps completed pregabalin 100 mg caps JAJA ([facility]) Methocarbamol 500 MG Oral Tablet methocarbamol 500 mg tablet methocarbamol 500 mg tablet completed methocarbamo l 500 MG Oral Tablet JAJA ([facility]) zolpidem tartrate 10 mg tabs co mpleted zolpidem tartrate 10 mg tabs [facility] ([facility]) Sulfamethoxazole 800 MG / Trimethoprim 1 60 MG Oral Tablet sulfamethoxazole 800 mg-trimethoprim 160 mg tablet TAKE ONE TABLET BY MOUTH TWICE A DAY FOR 7 DAYS sulfamethoxazole 800 mg-trimethoprim 160 mg tablet TAKE ONE TABLET BY MOUTH TWICE A DAY FOR 7 DAYS completed sulfamethoxazole 800 MG / trimethoprim 160 MG Oral Tablet JAJA ([facility]) paroxetine 10 mg tablet TAKE ONE TABLET BY MOUTH EVERY DAY completed paroxetine hydrochloride 10 MG O ral Tablet JAJA ([facility]) tramadol hydrochloride 50 MG Oral Tablet traMADol HCl 50 MG Oral Tablet (ULTRAM) traMADol HCl 50 MG Oral Tablet (ULTRAM) aborted tramadol 50 mg tablet TAKE ONE TABLET BY MOUTH THREE TIMES A DAY NEEDED MAXIMUM DAILY DOSE 3 TABLETS [facility] celecoxib 200 mg caps completed celecoxib 200 mg caps JAJA ([facility]) Lurasidone Hydrochloride 20 MG Oral Tabl et [Latuda] Latuda 20 mg tablet TAKE 1 TABLET BY MOUTH EVERY DAY WITH A 350 CALORIE SNACK OR IMMEDIATELY AFTER DINNER Latuda 20 mg tablet TAKE 1 TABLET BY MOUTH EVERY DAY WITH A 350 CALORIE SNACK OR IMMEDIATELY AFTER DINNER completed lurasidone hydrochloride 20 MG Oral Tablet [Latuda] JAJA ([facility]) methylprednisolone 4 mg tablets in a dose pack USE DIRECTED [id number] completed methylprednisolone 4 mg tabl ets in a dose pack JAJA ([facility]) Oxycodone Hydrochloride 15 MG Oral Table t oxycodone 15 mg tablet TAKE 1/2 TO 1 TABLET BY MOUTH EVERY 4 TO 6 HOURS NEEDED FOR PAIN MODERATE TO SEVERE MAXIMUM DAILY DOSE 6 oxycodone 15 mg tablet TAKE 1/2 TO 1 TAB LET BY MOUTH EVERY 4 TO 6 HOURS NEEDED FOR PAIN MODERATE TO SEVERE MAXIMUM DAILY DOSE 6 completed oxycodone hydroc hloride 15 MG Oral Tablet JAJA ([facility]) celecoxib 200 MG Oral Capsule celecoxib 200 mg capsule celec oxib 200 mg capsule completed celecoxib 200 MG Oral Capsule JA[facility] ([facility]) celecoxib 200 mg caps completed celecoxib 200 mg caps JAJA ([facility]) zolpidem tartrate 10 mg tabs co mpleted zolpidem tartrate 10 mg tabs JAJA ([facility]) paroxetine 10 mg tablet TAKE ONE TABLET BY MOUTH EVERY DAY [id number] completed paroxetine hydrochloride 10 MG O ral Tablet JAJA ([facility]) duloxetine hydrochloride 60 mg cpep completed duloxetine hydrochloride 60 mg cpep JAJA ([facility]) 24 HR Nicotine 0.583 MG/HR Transdermal P atch nicotine 14 mg/24 hr daily transdermal patch APPLY ONE PATCH TO SKIN ONCE A DAY nicotine 14 mg/24 hr daily transdermal patch APPLY ONE PATCH TO SKIN ONCE A DAY completed 24 HR nicotine 0.583 MG/HR Transdermal System JAJA ([facility]) 24 HR Nicotine 0.583 MG/HR Transdermal P atch nicotine 14 mg/24 hr daily transdermal patch APPLY ONE PATCH TO SKIN ONCE A DAY nicotine 14 mg/24 hr daily transdermal patch APPLY ONE PATCH TO SKIN ONCE A DAY completed 24 HR nicotine 0.583 MG/HR Transdermal System JAJA ([facility]) albuterol sulfate HFA 90 mcg/actuation aerosol inhaler [id number] completed [id number] 200 ACTUAT albuterol 0.09 MG/ACTUAT Metered Dose Inhaler JAJA ([facility]) Oxycodone Hydrochloride 15 MG Oral Table t oxycodone 15 mg tablet TAKE 1/2 TO 1 TABLET BY MOUTH EVERY 4 TO 6 HOURS NEEDED FOR PAIN MODERATE TO SEVERE MAXIMUM DAILY DOSE 6 oxycodone 15 mg tablet TAKE 1/2 TO 1 TAB LET BY MOUTH EVERY 4 TO 6 HOURS NEEDED FOR PAIN MODERATE TO SEVERE MAXIMUM DAILY DOSE 6 completed oxycodone hydroc hloride 15 MG Oral Tablet AJJA ([facility]) Zolpidem tartrate 10 MG Oral Tablet zolp idem 10 mg tablet TAKE ONE TABLET BY MOUTH AT BEDTIME NEEDED FOR SLEEP MAXIMUM DAILY DOSE 1 zolpidem 10 mg tablet TAKE ONE TABLET BY MOUTH AT BEDTIME NEEDED FOR SLEEP MAXIMUM DAILY DOSE 1 completed zolpidem tart rate 10 MG Oral Tablet JAJA ([facility]) Hydroxyzine Hydrochloride 25 MG Oral Tab let hydroxyzine HCl 25 mg tablet TAKE 1 2 TABLETS BY MOUTH TWO TIMES A DAY NEEDED FOR ANXIETY hydroxyzine HCl 25 mg tablet TAKE 1 2 TABLETS BY MOUTH TWO TIMES A DAY NEEDED FOR ANXIETY completed hydroxyzine hydrochloride 25 MG Oral Tablet JAJA ([facility]) Oxycodone Hydrochloride 15 MG Oral Table t oxycodone 15 mg tablet TAKE 1/2 TO 1 TABLET BY MOUTH EVERY 4 TO 6 HOURS NEEDED FOR PAIN MODERATE TO SEVERE MAXIMUM DAILY DOSE 6 oxycodone 15 mg tablet TAKE 1/2 TO 1 TAB LET BY MOUTH EVERY 4 TO 6 HOURS NEEDED FOR PAIN MODERATE TO SEVERE MAXIMUM DAILY DOSE 6 completed oxycodone hydroc hloride 15 MG Oral Tablet JAJA ([facility]) latuda 80 mg tabs completed l atuda 80 mg tabs JAJA ([facility]) Lurasidone Hydrochloride 20 MG Oral Tabl et [Latuda] Latuda 20 mg tablet TAKE 1 TABLET BY MOUTH EVERY DAY WITH A 350 CALORIE SNACK OR IMMEDIATELY AFTER DINNER Latuda 20 mg tablet TAKE 1 TABLET BY MOUTH EVERY DAY WITH A 350 CALORIE SNACK OR IMMEDIATELY AFTER DINNER completed lurasidone hydrochloride 20 MG Oral Tablet [Latuda] JAJA ([facility]) Oxycodone Hydrochloride 5 MG Oral Tablet oxycodone 5 mg tablet TAKE ONE TO TWO TABLETS BY MOUTH EVERY 4 HOURS NEEDED FOR PAIN MAXIMUM DAILY DOSE 10 oxycodone 5 mg tablet TAKE ONE TO TWO TABLETS BY MOUTH EVERY 4 HOURS NEEDED FOR PAIN MAXIMUM DAILY DOSE 10 compl eted oxycodone hydrochloride 5 MG Oral Tablet JAJA ([facility]) Lurasidone Hydrochloride 60 MG Oral Tabl et [Latuda] Latuda 60 mg tablet once daily Latuda 60 mg tablet once daily complet ed lurasidone hydrochloride 60 MG Oral Tablet [Latuda] JAJA ([facility]) tizanidine hydrochloride 4 mg tabs completed tizanidine hydrochloride 4 mg tabs JAJA ([facility]) pregabalin 75 MG Oral Capsule pregabalin 75 mg capsule prega balin 75 mg capsule completed pregabalin 75 MG Oral Capsule JAJA ([facility]) Methocarbamol 500 MG Oral Tablet methocarbamol 500 mg tablet methocarbamol 500 mg tablet completed methocarbamo l 500 MG Oral Tablet JAJA ([facility]) Oxybutynin chloride 5 MG Oral Tablet oxy butynin chloride 5 mg tablet TAKE 4 TABLETS BY MOUTH EVERY EVENING oxybutynin chloride 5 mg tablet TAKE 4 T ABLETS BY MOUTH EVERY EVENING completed oxybutynin chloride 5 MG Oral Tablet JAJA ([facility]) celecoxib 200 mg caps completed celecoxib 200 mg caps JAJA ([facility]) Alprazolam 0.25 MG Oral Tablet alprazolam 0.25 mg tabl et alprazolam 0.25 mg tablet completed alprazolam 0.25 MG Oral Tablet JAJA ([facility]) Lurasidone Hydrochloride 60 MG Oral Tabl et [Latuda] Latuda 60 mg tablet once daily Latuda 60 mg tablet once daily complet ed lurasidone hydrochloride 60 MG Oral Tablet [Latuda] JAJA ([facility]) latuda 80 mg tabs completed l atuda 80 mg tabs JAJA ([facility]) pregabalin 100 mg caps completed pregabalin 100 mg caps JAJA ([facility]) tizanidine 4 MG Oral Tablet tizanidine 4 mg tablet TAKE ONE TABLET BY MOUTH FOUR TIMES A DAY NEEDED tizanidine 4 mg tablet TAKE ONE TABLET B Y MOUTH FOUR TIMES A DAY NEEDED completed tizanidine 4 MG Oral Tablet JAJA ([facility]) duloxetine 30 MG Delayed Release Oral Ca psule duloxetine 30 mg capsule,delayed release TAKE ONE CAPSULE BY MOUTH EVERY DAY duloxetine 30 mg capsule,delayed release TAKE ONE CAPSULE BY MOUTH EVERY DAY completed duloxetine 30 MG Delayed Release Oral Capsule JAJA ([facility]) paroxetine 10 mg tablet TAKE ONE TABLET BY MOUTH EVERY DAY [id number] completed paroxetine hydrochloride 10 MG O ral Tablet JAJA ([facility]) Sulfamethoxazole 800 MG / Trimethoprim 1 60 MG Oral Tablet sulfamethoxazole 800 mg-trimethoprim 160 mg tablet TAKE ONE TABLET BY MOUTH TWICE A DAY FOR 7 DAYS sulfamethoxazole 800 mg-trimethoprim 160 mg tablet TAKE ONE TABLET BY MOUTH TWICE A DAY FOR 7 DAYS completed sulfamethoxazole 800 MG / trimethoprim 160 MG Oral Tablet JAJA ([facility]) Fluconazole 150 MG Oral Tablet fluconazo le 150 mg tablet TAKE 1 TABLET BY MOUTH FOR 1 DOSE fluconazole 150 mg tablet TAKE 1 TABLET BY MOUTH FOR 1 DOSE completed fluconazole 150 MG Oral T ablet JAJA ([facility]) tizanidine hydrochloride 4 mg tabs completed tizanidine hydrochloride 4 mg tabs JAJA ([facility]) celecoxib 200 mg caps completed celecoxib 200 mg caps JAJA ([facility]) 24 HR Nicotine 0.583 MG/HR Transdermal P atch nicotine 14 mg/24 hr daily transdermal patch APPLY ONE PATCH TO SKIN ONCE A DAY nicotine 14 mg/24 hr daily transdermal patch APPLY ONE PATCH TO SKIN ONCE A DAY completed 24 HR nicotine 0.583 MG/HR Transdermal System JAJA ([facility]) 24 HR Nicotine 0.583 MG/HR Transdermal P atch nicotine 14 mg/24 hr daily transdermal patch APPLY ONE PATCH TO SKIN ONCE A DAY nicotine 14 mg/24 hr daily transdermal patch APPLY ONE PATCH TO SKIN ONCE A DAY completed 24 HR nicotine 0.583 MG/HR Transdermal System JAJA ([facility]) Acetaminophen 300 MG / Codeine Phosphate 30 MG Oral Tablet acetaminophen 300 mg- codeine 30 mg tablet TAKE ONE TABLET BY MOUTH EVERY 12 HOURS NEEDED FOR PAIN MAXIMUM DAILY DOSE 2 TABLETS acetaminophen 300 mg-codeine 30 mg table t TAKE ONE TABLET BY MOUTH EVERY 12 HOURS NEEDED FOR PAIN MAXIMUM DAILY DOSE 2 TABLETS completed acetam inophen 300 MG / codeine phosphate 30 MG Oral Tablet JAJA ([facility]) aripiprazole 5 MG Oral Tablet aripiprazo le 5 mg tablet TAKE ONE TABLET BY MOUTH AT BEDTIME aripiprazole 5 mg tablet TAKE ONE TABLET BY MOUTH AT BEDTIME completed aripiprazole 5 MG Oral Ta blet JAJA ([facility]) Zolpidem tartrate 10 MG Oral Tablet zolp idem 10 mg tablet TAKE ONE TABLET BY MOUTH AT BEDTIME NEEDED FOR SLEEP MAXIMUM DAILY DOSE 1 zolpidem 10 mg tablet TAKE ONE TABLET BY MOUTH AT BEDTIME NEEDED FOR SLEEP MAXIMUM DAILY DOSE 1 completed zolpidem tart rate 10 MG Oral Tablet JAJA ([facility]) Zolpidem tartrate 10 MG Oral Tablet zolp idem 10 mg tablet TAKE ONE TABLET BY MOUTH AT BEDTIME NEEDED FOR SLEEP MAXIMUM DAILY DOSE 1 zolpidem 10 mg tablet TAKE ONE TABLET BY MOUTH AT BEDTIME NEEDED FOR SLEEP MAXIMUM DAILY DOSE 1 completed zolpidem tart rate 10 MG Oral Tablet JAJA ([facility]) celecoxib 200 MG Oral Capsule celecoxib 200 mg capsule celec oxib 200 mg capsule completed celecoxib 200 MG Oral Capsule JAJA ([facility]) Phenazopyridine hydrochloride 200 MG Ora l Tablet phenazopyridine 200 mg tablet TAKE ONE TABLET BY MOUTH THREE TIMES A DAY AFTER MEALS FOR 2 DAYS phenazopyridine 200 mg tablet TAKE ONE TABLET BY MOUTH THREE TIMES A DAY AFTER MEALS FOR 2 DAYS completed phenazopyridine hydrochloride 200 MG Oral Tablet JAJA ([facility]) pregabalin 100 mg caps completed pregabalin 100 mg caps JAJA ([facility]) Alprazolam 0.25 MG Oral Tablet alprazolam 0.25 mg tabl et alprazolam 0.25 mg tablet completed alprazolam 0.25 MG Oral Tablet JAJA ([facility]) paroxetine HCl 50 mg once daily complete d Paxil JAJA ([facility]) valacyclovir 500 MG Oral Tablet valacyclovir 500 mg ta blet valacyclovir 500 mg tablet completed valacyclovir 50 0 MG Oral Tablet JAJA ([facility]) latuda 80 mg tabs completed l atuda 80 mg tabs JAJA ([facility]) pregabalin 75 MG Oral Capsule pregabalin 75 mg capsule prega balin 75 mg capsule completed pregabalin 75 MG Oral Capsule JAJA ([facility]) latuda 80 mg tabs completed l atuda 80 mg tabs [facility] ([facility]) Zolpidem tartrate 10 MG Oral Tablet zolp idem 10 mg tablet TAKE ONE TABLET BY MOUTH AT BEDTIME NEEDED FOR SLEEP MAXIMUM DAILY DOSE 1 zolpidem 10 mg tablet TAKE ONE TABLET BY MOUTH AT BEDTIME NEEDED FOR SLEEP MAXIMUM DAILY DOSE 1 completed zolpidem tart rate 10 MG Oral Tablet JAJA ([facility]) Lurasidone Hydrochloride 80 MG Oral Tabl et [Latuda] Latuda 80 mg tablet TAKE 1 TABLET BY MOUTH WITH 350 CALORIE SNACK OR IMMEDIATELY AFTER DINER Latuda 80 mg tablet TAKE 1 TABLET BY MOUTH WITH 350 CALORIE SNACK OR IMMEDIATELY AFTER DINER completed lurasidone hyd rochloride 80 MG Oral Tablet [Latuda] JAJA ([facility]) clonidine hcl 0.1 mg tabs compl eted clonidine hcl 0.1 mg tabs JAJA ([facility]) Carisoprodol 350 MG Oral Tablet carisoprodol 350 mg ta blet carisoprodol 350 mg tablet completed carisoprodol 35 0 MG Oral Tablet JAJA ([facility]) zolpidem tartrate 10 mg tabs co mpleted zolpidem tartrate 10 mg tabs JAJA ([facility]) Lurasidone Hydrochloride 20 MG Oral Tabl et [Latuda] Latuda 20 mg tablet TAKE 1 TABLET BY MOUTH EVERY DAY WITH A 350 CALORIE SNACK OR IMMEDIATELY AFTER DINNER Latuda 20 mg tablet TAKE 1 TABLET BY MOUTH EVERY DAY WITH A 350 CALORIE SNACK OR IMMEDIATELY AFTER DINNER completed lurasidone hydrochloride 20 MG Oral Tablet [Latuda] JAJA ([facility]) Insurance Providers Payer name Policy type / Coverage type Policy ID Covered alliance party ID Covered alliance party's relationship to tapia Policy [employer] Plan Information [employer] [employer] Compensation [id number] Self [id number] [employer] Workers Compensation [id number] Self [employer] Workers Compensation [id number] Self 01 [id number] [employer] Workers Compensation [id number] Self 01 [id number] [employer] Workers Compensation [id number] [id number] Self 01 [id number] [employer] Workers Compensation [id number] 2.16.840.1.907934.3.227.99.991.1194.0 Self 01 [id number] [employer] Workers Compensation [id number] 2.16.840.1.642920.3.227.99.991.1194.0 Self 01 [id number] [employer] Workers Compensation [id number] 2.16.840.1.500861.3.227.99.991.1194.0 Self 01 [id number] [employer] Workers Compensation [id number] 2.16.840.1.160169.3.227.99.991.1194.0 Self 01 [id number] [employer] Workers Compensation [id number] 2.16.840.1.064960.3.227.99.991.1194.0 Self 01 [id number] [employer] Workers Compensation [id number] 2.16.840.1.058193.3.227.99.991.1194.0 Self 01 [id number] [employer] Workers Compensation [id number] 2.16.840.1.913158.3.227.99.991.1194.0 Self 01 [id number] [employer] Workers Compensation [id number] 2.16840.1.697436.3.227.99.991.1194.0 Self 01 [id number] [employer] Workers Compensation [id number] 2.16840.1.827681.3.227.99.991.1194.0 Self 01 [id number] [employer] Workers Compensation [id number] 2.16840.1.052839.3.227.99.991.1194.0 Self 01 [id number] [employer] Workers Compensation [id number] 2.0.1.421760.3.227.99.991.1194.0 Self 01 [id number] [employer] Workers Compensation [id number] 2.0.1.590399.3.227.99.991.1194.0 Self 01 [id number] [facility] Community Plan Commercial [id number] Self [id number] [facility] Community Plan Commercial [id number] 2.0.1.542942.3.22 7.99.991.1194.0 Self [id number] [facility] Community Plan Commercial [id number] Self MEDICAID M [id number] Self [id number] [employer] Comm Plan Medicaid F [id number] SELF [id number] [employer] I [id number] Self [id number] [employer] I [id number] Self [id number] Medicaid [place] Medig[place] Part B [id number] 2.16840.1.028885.3.227.99.991. 1194.0 Self [id number] [place] [id number] 2.16840.1.027442.3.227.99.991. 1194.0 Self [id number] [place] [id number] 2.16840.1.220762.3.227.99.991. 1194.[id number] [place] Medigap Part B [id number] 2.16.840.1.750182.3.227.99.991. 1194.[id number] Medicaid [place] Medigap Part B [id number] 2.16.840.1.018903.3.227.99.991. 1194.[id number] Medicaid [place] Medigap Part B [id number] Self Medicaid [place] Medigap Part B [id number] 2.16.840.1.442456.3.227.99.991. 1194.[id number] [place] Medigap Part B [id number] 2.16.840.1.287111.3.227.99.991. 1194.[id number] [place] Medigap Part B [id number] 2.16.840.1.268193.3.227.99.991. 1194.[id number] Medicaid [place] Medigap Part B [id number] 2.16.840.1.586841.3.227.99.991. 1194.[id number] [place] Medigap Part B [id number] 2.16.840.1.900189.3.227.99.991. 1194.[id number] Medicaid [place] Medigap Part B [id number] 2.16.840.1.092591.3.227.99.991. 1194.[id number] [place] Medigap Part B [id number] 2.16.840.1.106966.3.227.99.991. 1194.[id number] Medicaid [place] Medigap Part B [id number] 2.16.840.1.083189.3.227.99.991. 1194.[id number] [place] Medigap Part B [id number] 2.16.840.1.796265.3.227.99.991. 1194.[id number] [place] Medigap Part B [id number] 2.160.1.208287.3.227.99.991. 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 [id number] Self [id number] [employer] COMMUNITY [employer]AN MCDHMO [id number] SP [id number] [facility] MCRO [id number] SP [id number] HEA [id number] MEDICAID GME [id number] S [id number] [facility] HEA [id number] S [id number] [facility] O [id number] S [id number] [place] Med[place] [id number] 2..[id number] .2809.14937.0 Self [id number] [facility] Community Plan Commercial [id number] 2.0.1.679901.3.22 7.99.2809.63154.0 Self [id number] [facility] Health Maintenance Organization (HMO) [id number] 2.0.1.444795.3.227.99.1767.30771.0 Self [id number] [place] [id number] 2.160.1.775855.3.227.99 .2809.22990.0 Self [id number] [facility] Community Plan Commercial [id number] 2.160.1.508390.3.22 7.99.2809.67898.0 Self [id number] [facility] Health Maintenance Organization (HMO) [id number] 2.0.1.013149.3.227.99.1767.25991.0 Self [id number] [place] Med[place] [id number] 2.16.840.1.626911.3.227.99 .2809.70060.0 Self [id number] [facility] Community Plan Commercial [id number] 2.16.840.1.542993.3.22 7.99.2809.27102.0 Self [id number] [place] Med[place] [id number] 2.16.840.1.552909.3.227.99 .2809.92372.0 Self [id number] [facility] Community Plan Commercial [id number] 2.16.840.1.702085.3.22 7.99.2809.81606.0 Self [id number] [facility] [place] Health Maintenance Organization (O) [id number] 2.16.840.1.657887.3.227.99.1767.57549.0 Self [id number] [facility] Health Maintenance Organization (O) [id number] 2.16.840.1.245719.3.227.99.1767.18538.0 Self [id number] [place] Med[place] Part B [id number] 2.16.840.1.577946.3.227.99 .2809.60476.0 Self [id number] [facility] Community Plan Commercial [id number] 2.16.840.1.853516.3.22 7.99.2809.09128.0 Self [id number] [place] Med[place]ap Part [place] [id number] 2.16.840.1.462325.3.227.99 .2809.08957.0 Self [id number] [facility] Community Plan Commercial [id number] 2.16.840.1.246422.3.22 [id number] Self [id number] [facility] Community Plan Commercial [id number] Self Medicaid [place] Medicaid [id number] Self [facility] Health Maintenance Organization (HMO) [id number] Self [facility] Commercial [id number] Self MEDICAID [id number] SP [id number] [facility] [place] Health Maintenance Organization (HMO) [id number] Self [employer] COMMUNITY PLAN MCDHMO UNK SP UNK SELF PAY [id number] SP [id number] SELF PAY UNAVAILABLE UNAVAILA BLE [facility] [id number] Problems, Conditions, and Diagnoses Code Display Name Description Problem Type Effective Dates Data Source(s) F41.9 Anxiety disorder, unspecified Anxiety disorder, unspec ified Diagnosis 10/12/2021 12:00:00 AM EST NDOC ([facility]) F33.9 Major depressive disorder, recurrent, un specified Major depressive disorder, recurrent, unspecified Diagnosis 10/12/2021 12:00:00 AM EST NDOC ([facility]) K59.00 Constipation, unspecified Constipation, unspecified Di agnosis 10/12/2021 12:00:00 AM EST NDOC ([facility]) Z48.01 Encounter for change or removal of surgi whit wound dressing Encounter for change or removal of surgical wound dressing Diagnosis 12:00:00 AM EST NDOC ([facility]) M54.16 Radiculopathy, lumbar region Radiculopathy, lumbar reg ion Diagnosis 10/12/2021 12:00:00 AM EST NDOC ([facility]) M41.86 Other forms of scoliosis, lumbar region Other forms of scoliosis, lumbar region Diagnosis 10/12/2021 12:00:00 AM EST NDOC ([facility]) Z79.2 custodial (current) use of antibiotics L flavia term (current) use of antibiotics Diagnosis 10/12/2021 12:00:00 AM EST NDOC ([facility]) Z45.2 Encounter for adjustment and management of vascular access device Encounter for adjustment and management of vascular access device Diagnosis 10/12/2021 12:00:00 AM EST NDOC ([facility]) M96.1 Postlaminectomy syndrome, not elsewhere classified Postlaminectomy syndrome, not elsewhere classified Diagnosis 10/12/2021 12:00:00 AM ES T NDOC ([facility]) Back pain Back pain Diagnosis 10/05/2021 03:29:[address] [facility] G89.29 Other chronic pain Other chronic pain Diagnosis 09/2021 04:26:44 PM [facility] M54.50 Low back pain, unspecified Low back pain, unspecified Diagnosis 10/04/2021 04:26:44 PM [facility] Z98.1 Arthrodesis status Arthrodesis status Diagnosis 08/2021 03:08:58 PM [facility] M54.5 Low back pain Low back pain Diagnosis 03/14/2021 10:13:00 AM EDT [facility] M46.46 [id number] Discitis of lumbar region Problem 10/16/2021 12:00:00 AM EST eCW1 ([facility]) R50.9 [id number] Fever and chills Problem 10/02/2021 12:00:00 AM EST eCW1 ([facility]) M54.42 [id number] Acute left-sided low back pain w ith left-sided sciatica Problem 10/02/2021 12:00:00 AM EST eCW1 ([facility]) M47.816 [id number] Lumbar spondylosis Problem 07/02/2021 12:00: 00 AM EDT eC1 ([facility]) E78.2 [id number] Mixed hyperlipidemia Problem 03/29/2021 12:0 0:00 AM EDT eCW1 ([facility]) Surgeries/Procedures Procedure Description Date Indications Data Source(s) BASIC METABOLIC PANEL CALCIUM TOTAL <td>BASIC METABOLI C PANEL</td><td>Routine</td><td>10/11/2021 10:22 AM EST</td><td></td><td> </td> 10/11/2021 10:22:00 AM [facility] BLOOD COUNT COMPLETE AUTO&AUTO DIFRNTL WBC COUNT <td>C BC AND DIFFERENTIAL</td><td>Routine</td><td>10/11/2021 4:30 AM EST</td><td></td><td> </td> 10/11/2021 04:30:00 AM [facility] ECHO TTHRC R-T 2D W/WOM-MODE COMPL SPEC&COLR DOP <td>E CHOCARDIOGRAM 2D COMPLETE</td><td>Routine</td><td>10/10/2021 1:57 PM EST</td><td></td><td> </td> 10/10/2021 01:57:51 PM [facility] SEDIMENTATION RATE RBC AUTOMATED <td>SEDIMENTATION RAT E, AUTOMATED</td><td>Routine</td><td>10/10/2021 8:05 AM EST</td><td></td><td> </td> 10/10/2021 08:05:00 AM [facility] BLOOD COUNT COMPLETE AUTO&AUTO DIFRNTL WBC COUNT <td>C BC AND DIFFERENTIAL</td><td>Routine</td><td>10/10/2021 8:05 AM EST</td><td></td><td> </td> 10/10/2021 08:05:00 AM [facility] C-REACTIVE PROTEIN <td>INFLAMMATORY C-REACTIVE PROTEIN (CRP)</td><td>Routine</td><td>10/10/2021 8:05 AM EST</td><td></td><td> </td> 10/10/2021 08:05:00 AM [facility] BASIC METABOLIC PANEL CALCIUM TOTAL <td>BASIC METABOLI C PANEL</td><td>Routine</td><td>10/10/2021 8:05 AM EST</td><td></td><td> </td> 10/10/2021 08:05:00 AM [facility] CULTURE BACTERIAL BLOOD AEROBIC W/ID ISOLATES <td>BLOO D CULTURE</td><td>Routine</td><td>10/09/2021 8:55 AM EST</td><td></td><td></td> 10/09/2021 08:55:00 AM [facility] CULTURE BACTERIAL BLOOD AEROBIC W/ID ISOLATES <td>BLOO D CULTURE</td><td>Routine</td><td>10/09/2021 8:55 AM EST</td><td></td><td></td> 10/09/2021 08:55:00 AM [facility] CULTURE BACTERIAL BLOOD AEROBIC W/ID ISOLATES <td>BLOO D CULTURE</td><td>Routine</td><td>10/08/2021 3:19 PM EST</td><td></td><td></td> 10/08/2021 03:19:00 PM [facility] BLOOD COUNT COMPLETE AUTOMATED <td>CBC</td><td>STAT</t d><td>10/08/2021 6:40 AM EST</td><td></td><td> </td> 10/08/2021 06:40:00 AM [facility] BASIC METABOLIC PANEL CALCIUM TOTAL <td>BASIC METABOLI C PANEL</td><td>STAT</td><td>10/08/2021 6:40 AM EST</td><td></td><td> </td> 10/08/2021 06:40:00 AM [facility] BLOOD COUNT COMPLETE AUTOMATED <td>CBC</td><td>STAT</t d><td>10/07/2021 8:26 PM EST</td><td></td><td> </td> 10/07/2021 08:26:00 PM [facility] CONCENTRATION INFECTIOUS AGENTS <td>AFB CULTURE</td><td>Routine</td><td>10/07/2021 11:30 AM EST</td><td></td><td></td> 10/07/2021 11:30:00 AM [facility] CONCENTRATION INFECTIOUS AGENTS <td>AFB CULTURE</td><td>Routine</td><td>10/07/2021 11:30 AM EST</td><td></td><td></td> 10/07/2021 11:30:00 AM [facility] CONCENTRATION INFECTIOUS AGENTS <td>AFB CULTURE</td><td>Routine</td><td>10/07/2021 11:30 AM EST</td><td></td><td></td> 10/07/2021 11:30:00 AM [facility] CONCENTRATION INFECTIOUS AGENTS <td>AFB CULTURE</td><td>Routine</td><td>10/07/2021 11:30 AM EST</td><td></td><td></td> 10/07/2021 11:30:00 AM [facility] CUL BACT XCPT URINE BLOOD/STOOL AEROBIC ISOL <td>WOUND CULTURE</td><td>Routine</td><td>10/07/2021 11:30 AM EST</td><td></td><td> </td> 10/07/2021 11:30:00 AM [facility] CUL BACT XCPT URINE BLOOD/STOOL AEROBIC ISOL <td>WOUND CULTURE</td><td>Routine</td><td>10/07/2021 11:30 AM EST</td><td></td><td> </td> 10/07/2021 11:30:00 AM [facility] CUL BACT XCPT URINE BLOOD/STOOL AEROBIC ISOL <td>WOUND CULTURE</td><td>Routine</td><td>10/07/2021 11:30 AM EST</td><td></td><td> </td> 10/07/2021 11:30:00 AM [facility] CUL BACT XCPT URINE BLOOD/STOOL AEROBIC ISOL <td>WOUND CULTURE</td><td>Routine</td><td>10/07/2021 11:30 AM EST</td><td></td><td> </td> 10/07/2021 11:30:00 AM [facility] CULTURE FNGI MOLD/YEAST PRSMPTV OTH XCPT BLOOD <td>FUN ROLDAN CULTURE</td><td>Routine</td><td>10/07/2021 11:30 AM EST</td><td></td><td></td> 10/07/2021 11:30:00 AM [facility] CULTURE FNGI MOLD/YEAST PRSMPTV OTH XCPT BLOOD <td>FUN ROLDAN CULTURE</td><td>Routine</td><td>10/07/2021 11:30 AM EST</td><td></td><td></td> 10/07/2021 11:30:00 AM [facility] CULTURE FNGI MOLD/YEAST PRSMPTV OTH XCPT BLOOD <td>FUN ROLDAN CULTURE</td><td>Routine</td><td>10/07/2021 11:30 AM EST</td><td></td><td></td> 10/07/2021 11:30:00 AM [facility] CULTURE FNGI MOLD/YEAST PRSMPTV OTH XCPT BLOOD <td>FUN ROLDAN CULTURE</td><td>Routine</td><td>10/07/2021 11:30 AM EST</td><td></td><td></td> 10/07/2021 11:30:00 AM [facility] CUL BACT JOE ANAERC ISOL XCPT UR BLOOD/STOOL <td>ANAE ROBIC CULTURE</td><td>Routine</td><td>10/07/2021 11:30 AM EST</td><td></td><td></td> 10/07/2021 11:30:00 AM [facility] CUL BACT JOE ANAERC ISOL XCPT UR BLOOD/STOOL <td>ANAE ROBIC CULTURE</td><td>Routine</td><td>10/07/2021 11:30 AM EST</td><td></td><td></td> 10/07/2021 11:30:00 AM [facility] CUL BACT JOE ANAERC ISOL XCPT UR BLOOD/STOOL <td>ANAE ROBIC CULTURE</td><td>Routine</td><td>10/07/2021 11:30 AM EST</td><td></td><td></td> 10/07/2021 11:30:00 AM [facility] CUL BACT JOE ANAERC ISOL XCPT UR BLOOD/STOOL <td>ANAE ROBIC CULTURE</td><td>Routine</td><td>10/07/2021 11:30 AM EST</td><td></td><td></td> 10/07/2021 11:30:00 AM [facility] DEBRIDEMENT; SKIN, SUBQ TISSUE, MUSCLE, & BONE <td><co ntent ID="[id number]">DEBRIDEMENT; SKIN, SUBQ TISSUE, MUSCLE, & BONE</content></td><td></td><td>10/07/2021 10:31 AM EST</td><td><paragraph>Post- op infected fluid collection</paragraph></td><td></td> 10/07/2021 10:31:00 AM EST - 10/07/2021 12:40:00 PM [facility] BLOOD COUNT COMPLETE AUTOMATED <td>CBC</td><td>STAT</t d><td>10/07/2021 6:15 AM EST</td><td></td><td> </td> 10/07/2021 06:15:00 AM [facility] BASIC METABOLIC PANEL CALCIUM TOTAL <td>BASIC METABOLI C PANEL</td><td>STAT</td><td>10/07/2021 6:15 AM EST</td><td></td><td> </td> 10/07/2021 06:15:00 AM [facility] IADNA S AUREUS AMPLIFIED PROBE TQ <td>STAPH AUREUS MRS A PCR</td><td>Routine</td><td>10/06/2021 3:47 PM EST</td><td></td><td> </td> 10/06/2021 03:47:00 PM [facility] CULTURE BACTERIAL BLOOD AEROBIC W/ID ISOLATES <td>BLOO D CULTURE</td><td>Routine</td><td>10/06/2021 8:07 AM EST</td><td></td><td> </td> 10/06/2021 08:07:00 AM [facility] CULTURE BACTERIAL BLOOD AEROBIC W/ID ISOLATES <td>BLOO D CULTURE</td><td>Routine</td><td>10/06/2021 8:07 AM EST</td><td></td><td> </td> 10/06/2021 08:07:00 AM [facility] EKG ED PHYSICIAN INTERPRETATION <td>EKG ED PHYSICIAN INTERPRETATION</td><td>Routine</td><td>10/05/2021 10:53 PM EST</td><td></td><td> </td> 10/05/2021 10:53:27 PM [facility] EKG 12-LEAD - CMAXX REPORT <td>EKG 12-LEAD - CMAXX REPORT</td><td></td><td>10/05/2021 10:49 PM EST</td><td></td><td></td> 10/05/2021 10:49:31 PM [facility] EKG 12-LEAD - CMAXX REPORT <td>EKG 12-LEAD - CMAXX REPORT</td><td></td><td>10/05/2021 10:49 PM EST</td><td></td><td></td> 10/05/2021 10:49:31 PM [facility] EKG 12-LEAD <td>EKG 12-LEAD</td><td>STAT </td><td>10/05/2021 10:49 PM EST</td><td></td><td> </td> 10/05/2021 10:49:31 PM [facility] RESPIRATORY PATHOGEN PANEL <td>RESPIRATORY PATHOGEN PANEL</td><td>Routine</td><td>10/05/2021 10:44 PM EST</td><td></td><td> </td> 10/05/2021 10:44:00 PM [facility] COVID-19 PCR <td>COVID-19 PCR</td><td>Rou tahir</td><td>10/05/2021 10:44 PM EST</td><td></td><td> </td> 10/05/2021 10:44:00 PM [facility] PROTHROMBIN TIME <td>PROTIME INR</td><td>STAT </td><td>10/05/2021 10:44 PM EST</td><td></td><td> </td> 10/05/2021 10:44:00 PM [facility] BLOOD TYPING ABO <td>TYPE AND SCREEN</td><td> STAT</td><td>10/05/2021 10:44 PM EST</td><td></td><td> </td> 10/05/2021 10:44:00 PM [facility] XR CHEST FRONTAL ONLY [id number] <td>XR CHEST FRONTAL ONLY [id number]</td><td>STAT</td><td>10/05/2021 10:27 PM EST</td><td></td><td> </td> 10/05/2021 10:27:00 PM [facility] SEDIMENTATION RATE RBC AUTOMATED <td>SEDIMENTATION RAT E, AUTOMATED</td><td>Routine</td><td>10/05/2021 9:26 PM EST</td><td></td><td> </td> 10/05/2021 09:26:00 PM [facility] BLOOD COUNT COMPLETE AUTO&AUTO DIFRNTL WBC COUNT <td>C BC AND DIFFERENTIAL</td><td>Routine</td><td>10/05/2021 9:26 PM EST</td><td></td><td> </td> 10/05/2021 09:26:00 PM [facility] C-REACTIVE PROTEIN <td>INFLAMMATORY C-REACTIVE PROTEIN (CRP)</td><td>Routine</td><td>10/05/2021 9:26 PM EST</td><td></td><td> </td> 10/05/2021 09:26:00 PM [facility] COMPREHENSIVE METABOLIC PANEL <td>COMPREHENSIVE METABO LIC PANEL</td><td>STAT</td><td>10/05/2021 9:26 PM EST</td><td></td><td> </td> 10/05/2021 09:26:00 PM [facility] Lumbar Spinal Fusion 09/10/2021 12:00:00 AM EDT [facility] ([facility]) Revision of Fusion of Lumbar Spine 07/11/2021 12:00:00 AM EDT [facility] ([facility]) SURGERY CASE REQUEST OUTSIDE FACILITY ONLY <td>SURGERY CASE REQUEST OUTSIDE FACILITY ONLY</td><td>Routine</td><td>06/19/2021 2:56 PM EDT</td><td> Lumbar radiculopathy</td><td></td> 06/19/2021 02:56:02 PM EDT Lumbar radiculopathy [facility] Lumbar radiculopathy Individual psychotherapy (regime/therapy) 05/22/2021 1 2:00:00 AM EDT [facility] ([facility]) Evaluation AND/OR management - established patient (procedur e) 05/15/2021 12:00:00 AM EDT [facility] ([facility]) Evaluation AND/OR management - established patient (procedur e) 05/15/2021 12[facility] Evaluation AND/OR management - established patient (procedur e) 04/18/2021 12:00:00 AM EDT [facility] ([facility]) Evaluation AND/OR management - established patient (procedur e) 04/18/2021 12:00:00 AM EDT [facility] ([facility]) Evaluation AND/OR management - established patient (procedur e) 04/18/2021 12:00:00 AM EDT [facility] ([facility]) MRI, lumbar spine, w/wo contrast 04/10/2021 12:00:00 A M EDT [facility] ([facility]) Individual psychotherapy (regime/therapy) 04/05/2021 1 2:00:00 AM [facility] Individual psychotherapy (regime/therapy) 04/05/2021 1 2:00:00 AM EDT [facility] ([facility]) Individual psychotherapy (regime/therapy) 04/05/2021 1 2:00:00 AM EDT [facility] ([facility]) Individual psychotherapy (regime/therapy) 04/05/2021 1 2:00:00 AM EDT [facility] ([facility]) Individual psychotherapy (regime/therapy) 03/20/2021 1 2:00:00 AM EDT [facility] ([facility]) Individual psychotherapy (regime/therapy) 03/20/2021 1 2:00:00 AM EDT [facility]) Individual psychotherapy (regime/therapy) 03/20/2021 1 2:00:00 AM EDT [facility] ([facility]) Individual psychotherapy (regime/therapy) 03/20/2021 1 2:00:00 AM EDT [facility] ([facility]) Individual psychotherapy (regime/therapy) 03/20/2021 1 2:00:00 AM EDT [facility] ([facility]) Individual psychotherapy (regime/therapy) 03/05/2021 1 2:00:00 AM EDT [facility] ([facility]) Individual psychotherapy (regime/therapy) 03/05/2021 1 2:00:00 AM EDT [facility]) Individual psychotherapy (regime/therapy) 03/05/2021 1 2:00:00 AM EDT [facility] ([facility]) Individual psychotherapy (regime/therapy) 03/05/2021 1 2:00:00 AM EDT [facility] ([facility]) Individual psychotherapy (regime/therapy) 03/05/2021 1 2:00:00 AM EDT [facility] ([facility]) Individual psychotherapy (regime/therapy) 02/20/2021 1 2:00:00 AM EDT [facility] ([facility]) Individual psychotherapy (regime/therapy) 02/20/2021 1 2:00:00 AM EDT [facility] ([facility]) Individual psychotherapy (regime/therapy) 02/20/2021 1 2:00:00 AM EDT [facility] ([facility]) Individual psychotherapy (regime/therapy) 02/20/2021 1 2:00:00 AM [facility]T [facility]) Individual psychotherapy (regime/therapy) 02/20/2021 1 2:00:00 AM EDT [facility]) Individual psychotherapy (regime/therapy) 02/06/2021 1 2:00:00 AM EDT [facility] ([facility]) Individual psychotherapy (regime/therapy) 02/06/2021 1 2:00:00 AM EDT [facility]) Individual psychotherapy (regime/therapy) 02/06/2021 1 2:00:00 AM EDT [facility] ([facility]) Individual psychotherapy (regime/therapy) 02/06/2021 1 2:00:00 AM EDT [facility] ([facility]) Individual psychotherapy (regime/therapy) 02/06/2021 1 2:00:00 AM EDT [facility] ([facility]) Evaluation AND/OR management - established patient (procedur e) 01/31/2021 12:00:00 AM EST [facility] ([facility]) Evaluation AND/OR management - established patient (procedur e) 01/31/2021 12:00:00 AM EST [facility] ([facility]) Evaluation AND/OR management - established patient (procedur e) 01/31/2021 12:00:00 AM EST [facility] ([facility]) Evaluation AND/OR management - established patient (procedur e) 01/31/2021 12:00:00 AM EST [facility] ([facility]) Evaluation AND/OR management - established patient (procedur e) 01/31/2021 12:00:00 AM EST [facility] ([facility]) Individual psychotherapy (regime/therapy) 01/23/2021 1 2:00:00 AM EST [facility] ([facility]) Individual psychotherapy (regime/therapy) 01/23/2021 1 2:00:00 AM EST [facility] ([facility]) Individual psychotherapy (regime/therapy) 01/23/2021 1 2:00:00 AM EST [facility] ([facility]) Individual psychotherapy (regime/therapy) 01/23/2021 1 2:00:00 AM EST [facility] ([facility]) Individual psychotherapy (regime/therapy) 01/23/2021 1 2:00:00 AM EST [facility] ([facility]) Evaluation AND/OR management - established patient (procedur e) 12/25/2020 12:00:00 AM EST [facility] ([facility]) Evaluation AND/OR management - established patient (procedur e) 12/25/2020 12:00:00 AM EST [facility] ([facility]) Evaluation AND/OR management - established patient (procedur e) 12/25/2020 12:00:00 AM EST [facility] ([facility]) Evaluation AND/OR management - established patient (procedur e) 12/25/2020 12:00:00 AM EST [facility] ([facility]) Evaluation AND/OR management - established patient (procedur e) 12/25/2020 12:00:00 AM EST [facility] ([facility]) Evaluation AND/OR management - established patient (procedur e) 11/27/2020 12:00:00 AM EST [facility] ([facility]) Evaluation AND/OR management - established patient (procedur e) 11/27/2020 12:00:00 AM EST [facility] ([facility]) Evaluation AND/OR management - established patient (procedur e) 11/27/2020 12:00:00 AM EST [facility] ([facility]) Evaluation AND/OR management - established patient (procedur e) 11/27/2020 12:00:00 AM EST [facility] ([facility]) Evaluation AND/OR management - established patient (procedur e) 11/27/2020 12:00:00 AM EST [facility] ([facility]) Evaluation AND/OR management - established patient (procedur e) 09/25/2020 12:00:00 AM EST [facility] ([facility]) Evaluation AND/OR management - established patient (procedur e) 09/25/2020 12:00:00 AM EST [facility] ([facility]) Evaluation AND/OR management - established patient (procedur e) 09/25/2020 12:00:00 AM EST [facility] ([facility]) Evaluation AND/OR management - established patient (procedur e) 09/25/2020 12:00:00 AM EST [facility] ([facility]) Evaluation AND/OR management - established patient (procedur e) 09/25/2020 12:00:00 AM EST [facility] ([facility]) Results ID Date Data Source [id number] 10/22/2021 03:35:14 PM [facility] Name Value Range Interpretation Code Description Data Sally rce(s) Supporting Document(s) Progress Note [facility] JZOUZi9sEnBWWqGk13/HTDggPSKlo5IhELfnUPw7INkvUWArJ4CmMYQ2pC4yYJO2FWmLEhOyXrKeUBR8 [facility] JeSxoWPtOiIKMvThyZSlDdZAenZsjspCXtHI7MtLI0VLGyX64yRIVfGVFaC7JrKUJ3Mhe+Cx2SMFEgbN CrWB7TSlrS7Y8Jd5oPHJ7FhI/MPXOCq3LgtbCObgPjAXdzAWEqyeWKhObDhjE5pczs+Gb80VbeSeJ/T3 VnyhJ6PKswr2gJHHMyKvgBrpu/H9R+6DuOo/K/q1/D 5OvrsexfH2H1jLkUb7m/abVkVuYUYfwkjH8x9p2imOMXGk2vjWGQvIlu1i9TMw/jyT2fowAyj74Mha+U jd6dPja2U1ArOjgsjEKzQFknA7xNmYvPcrHVkqIFVGbGgrpERpYYkJlyIOggdKvWno+fFGAQluBpObYG N2efiqqGGVjRgNK4RkZRKZvfZUMA391/qYCPe+rdzh mfdeREVm86555fktWqxXU1nFnvAQhQvqvudI0DLkh+esAbPxD39E5Fw00K1u4TKlrag6ewPfg1M9q0kD s/b11bPuFj2dTwHKXa6xd5Nhx49ThOJqrnOd8LaXHtxDvRwCC937/a6cj2CwtZCLHUiJiGyL1mjQ8+zH E0NWIvWuWHIJz29k1zFrRdsNCx99QE1oqWzkVGlJHc M8sov7zdevWFV9FvXz/f8PKU9hzQ6S+YKZ5aDrY+tRgviKI1+168fWZvMRXqik/WLFlh79H0+opXQbds 9h2xcxZnYLnvRF0ChVCeB2Ucg5OZbUyVYo6F3oP5dHuvSy+Rosy/V8+Hk0bWVQdtNTeJDr4Ywykzi2HXq [file] 9yWAIASj5+XKzktTLkbOldLIPIAbP1KJvxKTwrRBYJXc2O ID Date Data Source [id number] 10/11/2021 08:29:47 PM EST [facility] Name Value Range Interpretation Code Description Data Sally rce(s) Supporting Document(s) Discharge Summary [facility] UNJBOd0wIyLXEqTh06/NJFhbUZVld0JaZYscNTo8LBmqEIQxI0AcGYR1bC9rGJV7YZkPUvAkUlCvQQY9 lbm [file] AgICAgICAgICAgICAgICAgICAgICAgICAgICAgICAg ICAgICAgICAgICAgICAgICAgICANCiAgICAgICAgICAgICAgICAgICAgICAgICAgICAgICAgICAgICAg ICAgICAgICAgICAgICAgICAgICAgICAgICAgICAgICAgICAgICAgICAgICAgICAgICAgICAgICAgICAg ICANCiAgICAgICAgICAgICAgICAgICAgICAgICAgIC AgICAgICAgICAgICAgICAgICAgICAgICAgICAgICAgICAgICAgICAgICAgICAgICAgICAgICAgICAgIC AgICAgICAgICAgICANCiAgICAgICAgICAgICAgICAgICAgICAgICAgICAgICAgICAgICAgICAgICAgIC AgICAgICAgICAgICAgICAgICAgICAgICAgICAgICAg ICAgICAgICAgICAgICAgICAgICAgICANCiAgICAgICAgICAgICAgICAgICAgICAgICAgICAgICAgICAg ICAgICAgICAgICAgICAgICAgICAgICAgICAgICAgICAgICAgICAgICAgICAgICAgICAgICAgICAgICAg ICAgICANCiAgICAgICAgICAgICAgICAgICAgICAgIC AgICAgICAgICAgICAgICAgICAgICAgICAgICAgICAgICAgICAgICAgICAgICAgICAgICAgICAgICAgIC AgICAgICAgICAgICAgICANCiAgICAgICAgICAgICAgICAgICAgICAgICAgICAgICAgICAgICAgICAgIC AgICAgICAgICAgICAgICAgICAgICAgICAgICAgICAg ICAgICAgICAgICAgICAgICAgICAgICAgICANCiAgICAgICAgICAgICAgICAgICAgICAgICAgICAgICAg ICAgICAgICAgICAgICAgICAgICAgICAgICAgICAgICAgICAgICAgICAgICAgICAgICAgICAgICAgICAg ICAgICAgICANCiAgICAgICAgICAgICAgICAgICAgIC AgICAgICAgICAgICAgICAgICAgICAgICAgICAgICAgICAgICAgICAgICAgICAgICAgICAgICAgICAgIC AgICAgICAgICAgICAgICAgICANCiAgICAgICAgICAgICAgICAgICAgICAgICAgICAgICAgICAgICAgIC AgICAgICAgICAgICAgICAgICAgICAgICAgICAgICAg ICAgICAgICAgICAgICAgICAgICAgICAgICAgICANCjw/tHKzG6gohIVuhoA4K9orFt7UDk6ZBM5os9Of ROUmMAlkraUtVhxIXxCrEQPxGnnRMri6OYwuSB2PfRTgA1DoD8NlDUbgNZ4KUJJmFCObhKZdGBDvFWNb LbP3XDBzCSiqQD8GfNLeHKybXRQqETWiSkErYHUpLQ VaODEkESZhEWHNHAZcFXBzZqUoCRPtXAXmYF5DZRSqP189hcBlJl2ICc2TMgCoOS8dbz2YNcAqUJFoPj pJXcd9PFbgTR7PiDCsxYPyVfTpOSIYZvIcQ0ern5EiGrZzPKAOBQurAL6Ov8PafGQvPYo+Tj3HJZ8dk8 NfNBnfFwOgTT9ojd2LNMqZXsRbQ9YihQcwZJVha0Uu JOOfOMUMqR5sSPR0BQU2FZOuVL5eTDPPDRemP4yvULCPGBB0LUUgCfR1BrDmZvRyRIX7LVcfYD9nJJht UO8XUYU3PUxyTLCvOXJtI7mKNkPpFXDdGZBweBxiMS9PIpUeW2ZcbqMxbGPwCaDuNKLRDl0+DQplbmRv RarFRcP9LJWwf2VlLQd0RU2QKEWhZRfhGH3XXMIooJ 5jRXiiWA6HFgGmSBFaXAPZKoUeD69vyNViXHm5D5LzCnWxXWQhXlrkOOApGIoeTmUvINBzZyBvZNxjPC 4+ID4+KEzeXY2UTGoweiQwYKHbZw4KYEGfBSDzLZ0oWJYnDVDdW2W1nBiaYSHZQoUxO4gubjonLW5aRB NwS700hXzldgTmBXMmCYCjGk6WYZDyLIY7RSZppTDj YhLzTDIVGWvrZW2BwWAdAAZ3qS3eADtzWKSnXIIzV4uXIpOdsDczMP01bAkoebVheRWrBVi+Jw5NHR5n j6DfPEf3chXcIJmfMVF0EOnvLGToYRRjGWQsGHE4MRR2BXKMOkJxNGCtDKYiYBroQXKsSLYblz0GRHYm ODRoFqMzWwRdIFPoLLTkYImiSMCuINE5ICVfGWPuIF FyKZ7FUiWiJHSgBJXiEMdmLBVpQRQsfz0IULFzDJBwEvQ2ILCfLKSrKAIgDQizGCDsSXSeEUNzRJMkIG LdET2MSkBfHAUdWGe7QBUhKJKnTPOnjd7QMQBfXQCeVco7XHRsWRMlGPTjSKwaFEMkTMBoUwMdHYPjLS AsKL6NSoWuZOIsAQS3HAYeWZNcEJFuhm8RMSEhLMNx GvU9YVWgFMVuQXElSSkxRSZgXBJaCWCqWTHmLBAwFT7WQxLbVNZsOOQ1VSSiZRHkERXumj0KJVQcAMHe MejkCJRlLQTgWLIyCKieGPOyKAT1Hul1RZSiORXpMO5JUpJyLRJpJIh8RJJbGUOvAJJami3VWUHpSMNh UDQ5RxAzTQHfPRBaBAsrZOZeLKC8DjFgBWJnYRKnUZ 0LKpQbUTOzJCq7EUDbIJIkWAOxoa1CIBBhRTAaEGliXwMdKMVeLRPpRGirXRBbJHNiKDU1TGIxDSYnLL 2CDnUaBFQaUkRsLIGfXTSxNUPyub4CQAQaMGElUSZ7XpYaFGXlXTXcXMxmQSQkZPLlLZM4ZGFxRBDiAB 9AZwJmTRBiYnF9SwAlRXKaRHSfgc6LAECrKWYvIlS6 OZBePZClAHWjAQgqGTKqJXP7ZPO8GHJxSKNmMU6LUmKrKSEnKelhMApnKWUuWROiay2ZXPGxWJHzUjY8 RtKoUBQsXAKmCSsmKGAoVRW2EUC8QLQkYHIfBX9PVuWzWXSaTfv8WfHlWPAoIZSvdd3SMHLaGGGeOSZ8 OrRkUDVgZZFlQGudUWCgYOE6AvGyHPHhTVAnMN2HOr FeRPMxIqi7YGHlGVIeWCScid8BqQPtxUhuvu8YDRaUVp5YaWhkODG0YSmrKl1fqZMuZTFiJHRAHv4Nen ReBRKxGUUTKRoqNORtYWwyNVZfQQC3XPLsHrbkWOZtDkXmGJG5BNUeCJGeUzWmNgJ2N1TdOLWtPLfuEo KeIvGyRZLnRJRmMgdxAEM9PFIjVyZ+JX8cTAp+[id number]== ID Date Data Source [id number] 10/11/2021 11:14:45 AM [facility] Name Value Range Interpretation Code Description Data Sally rce(s) Supporting Document(s) Bicarbonate [Moles/volume] in Serum 29 mmol/L 22-29 [facility] Chloride [Moles/volume] in Serum or Plasma 99 mmol/L 98-107 [facility] Creatinine [Mass/volume] in Serum or Plasma 0.50 mg/dL 0.50-0.90 [facility] Glucose [Mass/volume] in Serum or Plasma 107 mg/dL 70-140 [facility] Potassium [Moles/volume] in Serum or Plasma 2.9 mmol/L 3.4-5.1 [facility] Results called to and read back by BERTO GIRALDO RN [id number] Sodium [Moles/volume] in Serum or Plasma 139 mmol/L 136-145 [facility] Urea nitrogen [Mass/volume] in Serum or Plasma 3 mg/dL 6-20 [facility] Anion gap 3 in Serum or Plasma 11 mmol/L 8-15 [facility] Osmolality of Serum or Plasma by calculation 285 mosm/kg 275-300 [facility] Creatinine/Urea nitrogen [Mass Ratio] in Serum or Plasma 6 [facility] Calcium [Mass/volume] in Serum or Plasma 8.5 mg/dL 8.6-10.0 [facility] Glomerular filtration rate/1.73 sq M pre dicted among non-blacks [Volume Rate/Area] in Serum or Plasma by Creatinine-based formula (MDRD) >6 0 [facility] Glomerular filtration rate/1.73 sq M pre dicted among blacks [Volume Rate/Area] in Serum or Plasma by Creatinine-based formula (MDRD) >60 [facility] ID Date Data Source [id number] 10/11/2021 04:46:38 AM EST [facility] Name Value Range Interpretation Code Description Data Sally rce(s) Supporting Document(s) Leukocytes [#/volume] in Blood by Automated count 7.2 10*3/uL 4-10 [facility] Erythrocytes [#/volume] in Blood by Automated count 3.21 10*6/uL 4.1- 5.3 [facility] Hemoglobin [Mass/volume] in Blood 8.0 g/dL 11.5-15.5 [facility] Hematocrit [Volume Fraction] of Blood by Automated count 24.7 % 3 6-45 [facility] Erythrocyte mean corpuscular volume [Entitic volume] by Auto mated count 76.8 fL 80-96 [facility] Erythrocyte mean corpuscular hemoglobin [Entitic mass] by Automated count 24.9 pg 27-33 [facility] Erythrocyte mean corpuscular hemoglobin concentration [Mass/volume] by Automated count 32.4 g/dL [facility].0[facility] width [Ratio] by Automated count 21.2 % 11.5-14.5 H [facility] Platelets [#/volume] in Blood by Automated count 361 10*3/uL 150-400 [facility] Differential cell count method - Blood [facility] Neutrophils/100 leukocytes in Blood by Automated count 67 % [facility] Lymphocytes/100 leukocytes in Blood by Automated count 19 % [facility] Monocytes/100 leukocytes in Blood by Automated count 9 % [facility] Eosinophils/100 leukocytes in Blood by Automated count 4 % [facility] Basophils/100 leukocytes in Blood by Automated count 1 % [facility] Neutrophils [#/volume] in Blood by Automated count 4.86 10*3/uL 1.8-7 .0 [facility] Lymphocytes [#/volume] in Blood by Automated count 1.35 10*3/uL 1.2-4 .0 [facility] Monocytes [#/volume] in Blood by Automated count 0.63 10*3/uL 0-0.8 [facility] Eosinophils [#/volume] in Blood by Automated count 0.28 10*3/uL 0-0.5 [facility] Basophils [#/volume] in Blood by Automated count 0.06 10*3/uL 0-0.2 [facility] Nucleated erythrocytes/100 leukocytes [Ratio] in Blood by Automated count 0 /100{WBCs} 0-0 [facility] ID Date Data Source [id number] 10/10/2021 08:54:08 AM [facility] Value Range Interpretation Code Description Data Sally rce(s) Supporting Document(s) Erythrocyte sedimentation rate 92 mm/hr <20 H [facility] ID Date Data Source [id number] 10/10/2021 08:54:10 AM [facility] Value Range Interpretation Code Description Data Sally rce(s) Supporting Document(s) C reactive protein [Mass/volume] in Serum or Plasma 129.0 mg/L <8.0 H [facility] ID Date Data Source [id number] 10/10/2021 09:14:10 AM [facility] Value Range Interpretation Code Description Data Sally rce(s) Supporting Document(s) Bicarbonate [Moles/volume] in Serum 25 mmol/L 22-29 [facility] Chloride [Moles/volume] in Serum or Plasma 99 mmol/L 98-107 [facility] Creatinine [Mass/volume] in Serum or Plasma 0.41 mg/dL 0.50-0.90 [facility] Glucose [Mass/volume] in Serum or Plasma 88 mg/dL 70-140 [facility] Potassium [Moles/volume] in Serum or Plasma 3.1 mmol/L 3.4-5.1 L [facility] Sodium [Moles/volume] in Serum or Plasma 140 mmol/L 136-145 [facility] Urea nitrogen [Mass/volume] in Serum or Plasma 4 mg/dL 6-20 [facility] Anion gap 3 in Serum or Plasma 16 mmol/L 8-15 H [facility] Osmolality of Serum or Plasma by calculation 285 mosm/kg 275-300 [facility] Creatinine/Urea nitrogen [Mass Ratio] in Serum or Plasma 9 [facility] Calcium [Mass/volume] in Serum or Plasma 8.6 mg/dL 8.6-10.0 [facility] Glomerular filtration rate/1.73 sq M pre dicted among non-blacks [Volume Rate/Area] in Serum or Plasma by Creatinine-based formula (MDRD) >6 0 [facility] Glomerular filtration rate/1.73 sq M pre dicted among blacks [Volume Rate/Area] in Serum or Plasma by Creatinine-based formula (MDRD) >60 [facility] ID Date Data Source [id number] 10/10/2021 09:23:24 AM [facility] Name Value Range Interpretation Code Description Data Sally e(s) Supporting Document(s) Leukocytes [#/volume] in Blood by Automated count 8.4 10*3/uL 4-10 [facility] Erythrocytes [#/volume] in Blood by Automated count 3.30 10*6/uL 4.1- 5.3 [facility] Hemoglobin [Mass/volume] in Blood 8.0 g/dL 11.5-15.5 [facility] Hematocrit [Volume Fraction] of Blood by Automated count 25.2 % 3 6-45 [facility] Erythrocyte mean corpuscular volume [Entitic volume] by Auto mated count 76.3 fL 80-96 [facility] Erythrocyte mean corpuscular hemoglobin [Entitic mass] by Automated count 24.4 pg 27-33 [facility] Erythrocyte mean corpuscular hemoglobin concentration [Mass/volume] by Automated count 31.9 g/dL 32.0-36.0 [facility] width [Ratio] by Automated count 21.4 % 11.5-14.5 [facility] Platelets [#/volume] in Blood by Automated count 413 10*3/uL 150-400 [facility] Differential cell count method - Blood [facility] Neutrophils/100 leukocytes in Blood by Automated count 75 % [facility] Lymphocytes/100 leukocytes in Blood by Automated count 14 % [facility] Monocytes/100 leukocytes in Blood by Automated count 7 % [facility] Eosinophils/100 leukocytes in Blood by Automated count 3 % [facility] Basophils/100 leukocytes in Blood by Automated count 1 % [facility] Neutrophils [#/volume] in Blood by Automated count 6.42 10*3/uL 1.8-7 .0 [facility] Lymphocytes [#/volume] in Blood by Automated count 1.16 10*3/uL 1.2-4 .0 [facility] Monocytes [#/volume] in Blood by Automated count 0.55 10*3/uL 0-0.8 [facility] Eosinophils [#/volume] in Blood by Automated count 0.27 10*3/uL 0-0.5 [facility] Basophils [#/volume] in Blood by Automated count 0.05 10*3/uL 0-0.2 [facility] Nucleated erythrocytes/100 leukocytes [Ratio] in Blood by Automated count 0 /100{WBCs} 0-0 [facility] ID Date Data Source [id number] 10/14/2021 08:57:02 AM [facility] Cmnt XXX-Imp : LACMicroorganism XXX Cult : No growth 5 days Name Value Range Interpretation Code Description Data Sally rce(s) Supporting Document(s) ID Date Data Source [id number] 10/14/2021 08:57:02 AM [facility] Service Cmnt XXX-Imp : RACMicroorganism XXX Cult : No growth 5 days Name Value Range Interpretation Code Description Data Sally rce(s) Supporting Document(s) ID Date Data Source [id number] 10/13/2021 07:58:01 AM [facility] Service Cmnt XXX-Imp : Specimen source n ot given.Microorganism XXX Cult : No growth 5 days Name Value Range Interpretation Code Description Data Sally rce(s) Supporting Document(s) ID Date Data Source [id number] 10/08/2021 07:01:43 AM [facility] Name Value Range Interpretation Code Description Data Sally rce(s) Supporting Document(s) Leukocytes [#/volume] in Blood by Automated count 9.7 10*3/uL 4-10 [facility] Erythrocytes [#/volume] in Blood by Automated count 3.41 10*6/uL 4.1- 5.3 [facility] Hemoglobin [Mass/volume] in Blood 8.4 g/dL 11.5-15.5 [facility] Hematocrit [Volume Fraction] of Blood by Automated count 26.7 % 3 6-45 L [facility] Erythrocyte mean corpuscular volume [Entitic volume] by Auto mated count 78.3 fL 80-96 [facility] Erythrocyte mean corpuscular hemoglobin [Entitic mass] by Automated count 24.5 pg 27-33 [facility] Erythrocyte mean corpuscular hemoglobin concentration [Mass/volume] by Automated count 31.2 g/dL 32.0-36.0 [facility]th[facility] distribution width [Ratio] by Automated count 21.0 % 11.5-14.5 H [facility] Platelets [#/volume] in Blood by Automated count 416 10*3/uL 150-400 H [facility] ID Date Data Source [id number] 10/08/2021 07:37:49 AM [facility] Name Value Range Interpretation Code Description Data Sally rce(s) Supporting Document(s) Bicarbonate [Moles/volume] in Serum 24 mmol/L 22-29 [facility] Chloride [Moles/volume] in Serum or Plasma 99 mmol/L 98-107 [facility] Creatinine [Mass/volume] in Serum or Plasma 0.38 mg/dL 0.50-0.90 [facility] Glucose [Mass/volume] in Serum or Plasma 92 mg/dL 70-140 [facility] Potassium [Moles/volume] in Serum or Plasma 3.6 mmol/L 3.4-5.1 [facility] Sodium [Moles/volume] in Serum or Plasma 135 mmol/L 136-145 [facility] Urea nitrogen [Mass/volume] in Serum or Plasma 4 mg/dL 6-20 L [facility] Anion gap 3 in Serum or Plasma 12 mmol/L 8-15 [facility] Osmolality of Serum or Plasma by calculation 277 mosm/kg 275-300 [facility] Creatinine/Urea nitrogen [Mass Ratio] in Serum or Plasma 11 [facility] Calcium [Mass/volume] in Serum or Plasma 8.3 mg/dL 8.6-10.0 [facility] Glomerular filtration rate/1.73 sq M pre dicted among non-blacks [Volume Rate/Area] in Serum or Plasma by Creatinine-based formula (MDRD) >6 0 [facility] Glomerular filtration rate/1.73 sq M pre dicted among blacks [Volume Rate/Area] in Serum or Plasma by Creatinine-based formula (MDRD) >60 [facility] ID Date Data Source [id number] 10/07/2021 09:01:55 PM [facility] Name Value Range Interpretation Code Description Data Sally rce(s) Supporting Document(s) Leukocytes [#/volume] in Blood by Automated count 11.4 10*3/uL 4-10 H [facility] Erythrocytes [#/volume] in Blood by Automated count 3.15 10*6/uL 4.1- 5.3 [facility] Hemoglobin [Mass/volume] in Blood 7.9 g/dL 11.5-15.5 [facility] Hematocrit [Volume Fraction] of Blood by Automated count 24.6 % 3 6-45 [facility] Erythrocyte mean corpuscular volume [Entitic volume] by Auto mated count 78.0 fL 80-96 L [facility] Erythrocyte mean corpuscular hemoglobin [Entitic mass] by Automated count 25.0 pg 27-33 [facility] Erythrocyte mean corpuscular hemoglobin concentration [Mass/volume] by Automated count 32.0 g/dL 32.0-36.0 [facility] distribution width [Ratio] by Automated count 21.2 % 11.5-14.5 [facility] Platelets [#/volume] in Blood by Automated count 412 10*3/uL 150-400 [facility] ID Date Data Source [id number] 10/07/2021 06:51:01 PM [facility] Name Value Range Interpretation Code Description Data Sally rce(s) Supporting Document(s) ED Provider Note [facility] [id number]/FKVonWWAts6ByUZzlUNg3DUpuZDVrI5TnGFW9cE6mGFY2XUuUHqCkHaMgCVJ3 lbm [file] [id number]= ID Date Data Source [id number] 10/07/2021 01:39:02 PM [facility] Name Value Range Interpretation Code Description Data Sally rce(s) Supporting Document(s) Operative Note [facility] [id number]/ZFCulBVPpa1OlLGwyIUe9XSnaGJMdV2TnZJA2hD3aSBV4DYmWUgJyTvCiEIN2 lbm [file] [id number]8YGOx= ID Date Data Source [id number] 10/09/2021 08:46:41 AM [facility] Cmnt XXX-Imp : PARASPINAL FLUID 4Gram Stn XXX : 2+WBC'S Seen.2+Gram positive cocci in pairs, chains and clusters.Microorganism XXX Cult : 2+Staphylococcus aureus.Oxacillin susceptible using a non growth dependent method.Refer to culture [id number] received 10/07/21 13:01for susceptibility results. Name Value Range Interpretation Code Description Data Sally e(s) Supporting Document(s) ID Date Data Source [id number] 10/08/2021 11:19:32 AM [facility] Service Cmnt XXX-Imp : PARASPINAL FLUID 3Gram Stn XXX : 3+WBC'S Seen.No organisms seenMicroorganism XXX Cult : 2+Staphylococcus aureus.Oxacillin susceptible using a non growth dependent method. Name Value Range Interpretation Code Description Data Sally e(s) Supporting Document(s) ID Date Data Source [id number] 10/08/2021 11:20:50 AM [facility] Service Cmnt XXX-Imp : PARASPINAL FLUID 2Gram Stn XXX : 3+WBC'S Seen.1+Gram positive cocciin pairsMicroorganism XXX Cult : 2+Staphylococcus aureus.Oxacillin susceptible using a non growth dependent method. Name Value Range Interpretation Code Description [facility] ID Date Data Source [id number] 10/08/2021 11:17:38 AM [facility] Service Cmnt XXX-Imp : PARASPINAL FLUID 1Gram Stn XXX : 3+WBC'S Seen.1+Gram positive cocciin pairsMicroorganism XXX Cult : 2+Staphylococcus aureus.Oxacillin susceptible using a non growth dependent method.(NOTE)Called to and read back by Nicole Cazares RN on 7A 10/08/21,11:17am [facility] Name Value Range Interpretation Code Description Data Sally rce(s) Supporting Document(s) ID Date Data Source [id number] 10/12/2021 09:45:48 AM [facility] Service Cmnt XXX-Imp : PARASPINAL FLUID 4Microorganism XXX Cult : No anaerobes isolated Name Value Range Interpretation Code Description Data Sally rce(s) Supporting Document(s) ID Date Data Source [id number] 10/12/2021 09:45:48 AM [facility] Service Cmnt XXX-Imp : PARASPINAL FLUID 3Microorganism XXX Cult : No anaerobes isolated Name Value Range Interpretation Code Description Data Sally rce(s) Supporting Document(s) ID Date Data Source [id number] 10/12/2021 09:45:47 AM [facility] Service Cmnt XXX-Imp : PARASPINAL FLUID 2Microorganism XXX Cult : No anaerobes isolated Name Value Range Interpretation Code Description Data Sally rce(s) Supporting Document(s) ID Date Data Source [id number] 10/12/2021 09:45:47 AM [facility] Cmnt XXX-Imp : PARASPINAL FLUID 1Microorganism XXX Cult : No anaerobes isolated Name Value Range Interpretation Code Description Data Sally rce(s) Supporting Document(s) ID Date Data Source [id number] 10/07/2021 10:39:23 AM [facility] XR SPINE LUMBAR MIN 4 VIEWS DOES NOT INC LUDE BENDING [id number] RESULTInterpreted by:JOSE Duran SPINECLINICAL STATEMENT: Status post lumbar fusion. Low back pain.TECHNIQUE: AP, flexion-extension, and neutral lateral views of the lumbar spine.COMPARISON: 08/30/2021.FINDINGS:Since the prior study, there has been no significant interval change. The patient is again noted to be status post lumbar fusion at L1-ilium. Bilateral pedicle screws with interconnecting rods appear intact and well aligned. Multilevel intervertebral disc spaces are present. Again, the L3-L4 and L4-L5 disc spaces project just beyond the ventral margin of the corresponding vertebra, not significantly changed.Normal anatomic alignment is maintained. Normal vertebral body heights are preserved.The remaining intervertebral disc spaces appear unremarkable.IMPRESSION: Since 08/30/2021,No significant interval change. Status post lumbar fusion at L1-ilium, with stable postoperative changes.This document has been electronically signed by Julian Regan MD on 10/07/2021 10:37 AM Name Value Range Interpretation Code Description Data Sally rce(s) Supporting Document(s) ID Date Data Source [id number] 10/07/2021 06:42:20 AM [facility] Name Value Range Interpretation Code Description Data Sally rce(s) Supporting Document(s) Leukocytes [#/volume] in Blood by Automated count 11.1 10*3/uL 4-10 H [facility] Erythrocytes [#/volume] in Blood by Automated count 3.67 10*6/uL 4.1- 5.3 [facility] Hemoglobin [Mass/volume] in Blood 9.0 g/dL 11.5-15.5 [facility] Hematocrit [Volume Fraction] of Blood by Automated count 28.4 % 3 6-45 [facility] Erythrocyte mean corpuscular volume [Entitic volume] by Auto mated count 77.4 fL 80-96 [facility] Erythrocyte mean corpuscular hemoglobin [Entitic mass] by Automated count 24.5 pg 27-33 L [facility] Erythrocyte mean corpuscular hemoglobin concentration [Mass/volume] by Automated count 31.7 g/dL 32.0-36.0 [facility] distribution width [Ratio] by Automated count 21.5 % 11.5-14.5 H [facility] Platelets [#/volume] in Blood by Automated count 435 10*3/uL 150-400 H [facility] ID Date Data Source [id number] 10/07/2021 07:08:02 AM [facility] Name Value Range Interpretation Code Description Data Sally rce(s) Supporting Document(s) Bicarbonate [Moles/volume] in Serum 25 mmol/L 22-29 [facility] Chloride [Moles/volume] in Serum or Plasma 100 mmol/L 98-107 [facility] Creatinine [Mass/volume] in Serum or Plasma 0.45 mg/dL 0.50-0.90 L [facility] Glucose [Mass/volume] in Serum or Plasma 98 mg/dL 70-140 [facility] Potassium [Moles/volume] in Serum or Plasma 3.5 mmol/L 3.4-5.1 [facility] Sodium [Moles/volume] in Serum or Plasma 134 mmol/L 136-145 L [facility] Urea nitrogen [Mass/volume] in Serum or Plasma 7 mg/dL 6-20 [facility] Anion gap 3 in Serum or Plasma 9 mmol/L 8-15 [facility] Osmolality of Serum or Plasma by calculation 275 mosm/kg 275-300 [facility] Creatinine/Urea nitrogen [Mass Ratio] in Serum or Plasma 15 [facility] Calcium [Mass/volume] in Serum or Plasma 8.6 mg/dL 8.6-10.0 [facility] Glomerular filtration rate/1.73 sq M pre dicted among non-blacks [Volume Rate/Area] in Serum or Plasma by Creatinine-based formula (MDRD) >6 0 [facility] Glomerular filtration rate/1.73 sq M pre dicted among blacks [Volume Rate/Area] in Serum or Plasma by Creatinine-based formula (MDRD) >60 [facility] ID Date Data Source [id number] 10/06/2021 08:02:45 PM [facility] Name Value Range Interpretation Code Description Data Sally [facility](s) Supporting Document(s) [facility] YAHEHh0lKkCVTsTb34/ISDwlDTPcn2RqARviLNz6KNrtDRYoD7KeFSI5vY9ePPF1RXwHWwNsKdRbPGYo [facility] [file] ICAgICAgICAgICAgICAgICAgICAgICAgICAgICAgIC AgICAgICAgICAgICAgICAgICAgICAgICAgICAgICAgICAgICAgICAgICAgICAgICAgICAgICAgICAgIC GlZTTwYKShGC1ELCWiFLGpJTBaHSZxIYHvCZKoJDLvGZIsZNBdKSOzSQAhHRCsIADfTHQhQESmLEInVL AgICAgICAgICAgICAgICAgICAgICAgICAgICAgICAg LKTqSPLqHIVaORTyJYJkUGUnVQ2LKKXxRSJdJEEnFKKwXDBdMHLfKXGcNNOsMCTrSLBbHXGtMMLmLHFh ICAgICAgICAgICAgICAgICAgICAgICAgICAgICAgICAgICAgICAgICAgICAgICAgICAgICAgICAgICAg TX3XKGBrBBSfQKPvVVXeIBVsUTIbTSWtQRZzMPZjRU AgICAgICAgICAgICAgICAgICAgICAgICAgICAgICAgICAgICAgICAgICAgICAgICAgICAgICAgICAgIC MaJGQiIDCuRHZgSB4QZCIcPTEiNCGgUOUdEEBpYVWxQTYzCBKzODXcZLJzQAWuKZXiRBGpUUDfBEKrRQ AgICAgICAgICAgICAgICAgICAgICAgICAgICAgICAg QLKtURPaXSAmORViPYCdVAMxNJYxSS2VVFWjOAUmNEZaWGMfZHZrPZNgSVLtSXQtHEOjEWJgJXOcSTVf ICAgICAgICAgICAgICAgICAgICAgICAgICAgICAgICAgICAgICAgICAgICAgICAgICAgICAgICAgICAg VQDwMK6KJYZyPZPmTLKzVOQvBBDkQOJvNEDjPKNxBY AgICAgICAgICAgICAgICAgICAgICAgICAgICAgICAgICAgICAgICAgICAgICAgICAgICAgICAgICAgIC NzEFQlPRFhKWBpYVQgTD5JOFJkXNWfWOVsTJUhQKHtELAxUJBgMSCrDFWhXKOyLRYiJSTyFNHhEOVtNU AgICAgICAgICAgICAgICAgICAgICAgICAgICAgICAg XDQwRQGjHCOmNPCyLNFvTVUeCEWlQGRhVO0KLHWtORBmAHIkQTMfSGLpIFHdZOQqVRIkSWGvXBRhPPBh ICAgICAgICAgICAgICAgICAgICAgICAgICAgICAgICAgICAgICAgICAgICAgICAgICAgICAgICAgICAg MDVrSRYvIO8LYC98rHKit6U2AIVbJX6gamo/Pg0KDQ doodIdfPAtZN6VRvOtWN1qan7AQkSiCT5sln9CKDzXNeBpK5M1eCVlQZScMVHPRfZkE84pUZeyYe38XX wbDTCyWqWgBJj4Zc6JGoGcM8unUIEpLfP7VHEeInA3EBKgIjV6FPPuSiFxYYLdPCZcOFYgEUGGZDH7IF IwRbJaFnPwRBIvUBelSEXUHAGhQFWlNpEcJUycOA4G e8CitDV5ERi+Hg6HRV2fg2GgOTv3YVEyPG4wcq9MZPsHQsSlD4YwbxK6DUM3LVTiBl8BXZRvLDQdhBL7 LADfWKECDeKrO5KalA38SUQHEz7+JHgcasRyBdcUTdZ9OFCla9HnCHc2SS5GZBPvEZi1qNCtN76kw9Qz dHMgYnkgRWxpemFiZXRoIFAgSGFyYXVzeiwgTUQgYX XmCEWyQQIvWlPiDDJvVthvHALILYdBXgYuE2Lqw4CfGwF9ZWBmVpJxAAhtFLXbVfP1DY81hSvcLN0EYP JgFIDeTV78RJS8ODBqAg4KVr1TTqYwIW9lpe2FFJFsKKRuBdkBGvb6ORecVR7OzXGxV7OfcSVpl8gKQr HgH8MPJTOrGZNzOr3QTSUqMhLuIKKwWPnoYJ0nWQTy QWPYhSzwdqE1QL0HCS3obeTjCY5BYcWoLy9cHv2VSxXmO2QsE7PsLPDfJJEURUpdKP0TSWccNQ4vEC0M g5LJxWTmrK8gfe7UMYYqEFVzUeurmk5IPwipX5W4mAbkGRUnXKDkBUFLTHgsIK8RWMYxSJY7VGJ0BrNr IGTIImLoP90cHT8KL4Xem91dOkO0JZLgRyOaXOmoTS 04sZgyapEkaUJbsIdhPP0OHg9+QQgnyiIcIbuNVlldHVLROfIkSQaQEvYmQJNgINSeQZNqFpB6TiClSr 6YZWCwRYKdMAJpZrQdTZPjCWDgUIkfRAHmVPA2JHlmVTRiCXOxTV3EPsTnKDQvQPhtPHdcIQUeHDXakd 4BZRBpWMVcUJY1CtBsMCHtQHJpKRipPRWgPWNoWwA9 TKQlBMZhIA2YWyLyKTAzDCH0PMOeWCIeRTMuwj0OHDIvQRAiZUPdPQJaGUVrHEGoLWmrNUVhXVY3VeX5 NBAdGXIbDR2BGtCqXPVfKEroVbxeRPYlAFSmid3YHPCcUPAiQJP7CJCfSGWcYMWiFUuhODXkJBYtXbb8 PCHgVOWfNG8OCnKrGKHmASD6GGIaTKZsFGBzzy5CHB RcRPKyIlU2GQEiKXUmZMSoKEnsDXVbHDXjLRT7CTMgFXGrAT5UOeDfSDHtIQc1AdqzTVIjAQDhqw0DJG McAJFjEIW6KZFzTKEyKEIzZKrvBZIiEICqZSQ0BIImEDQeIH4GVvQjCCJwKjL0PULcYDBmTHArta7HUS ErFDWfRBG4XKZkHRGmYEAdKDosAGIfGHL6Wdx1IISp KRBpRS6XZeUdOJLjSehhCcvyEZBcDKVzfw8VOEFfMNUiOpN7ZYSnHUJbQZVeKQmlIJXvXKS8GBN6EAYf PEApKU3DSoJcKIQfBvu1ZsUyGOGjMRVxjz2JYWOnBSOgHIrcHIJiELQoBYMiZNeiUKKgWSS6NNefYIYh JJZxCL8YHdQeMTOhUdYlYtWwAYReFRQdtk3IICLcGX MnIJV0BdFtJINvCVAxWRyoGWAgPAYfCzAjIEEuOCTzAF2CZgHnVDMyVkN8MgLhPAVcTGZfjp4TDNOaRD NnQIReDfJyRNFcMDMiWLteZPXwSIAcWKtrQLXoHNRlIM6BCdRgPRSwZwA7YimzTCSoJMAfmq2EYMEdPB QsMts1TyBkMCPhVFMbWRrcUVQsKND8LvQ2KWDzSDJp RT5XVsJjQEWnCMO5NLOsCTUjTABojy1QJISuTIV6ABq0OGErHHUlJPZdLWrjJHZuCBV5HQGbFCMfJRSv JJ1OSsMrYGVsZPJvNBrmILDpISFhll0HTHSeQIL9SqL6ReNaBAUaOSZpVPjwBSFvTJF8EcpwNUFaZZRu OE1TKuBlRNQeJPB1VDbnFJUzXQEhsm2PABZyISQ7Vy IgFASaCGYvQCSgBGatMXCrVBM1GKOkKTRfGNGwGJ8BFzAwVTBqXYv2IjOmJCNlFSXuza5ABJKrHUY2MC zfOLDcVXWyKGTxPGh2abBjeNPnYFc7UJ2PI5NsoqHxUChHIn3Ea178XWI8BGCnXy3GY5dbZa6vWPVrOT OVRg0WOFh9IIE1RrJwZeTeJEHfMka4JEQoLZYsIPOf ZWUqRhy8ICE+OTauSMQrDhUbCPLmFgNsIuoxDPLtLCUbDdI9UMWhYdosMB8tAETTNi1+DQpzdGFydHhy DAABKtR2JKM3DTadWWWJGb9L ID Date Data Source [id number] 10/06/2021 05:56:42 PM [facility] Name Value Range Interpretation Code Description Data Sally e(s) Supporting Document(s) History and Physical [facility] EETJBc9mAtQXHsHt17/EXUaiCEGrn7TlEJgfIUw3ZEvmGXOhO4AgZRB6tW3hVIH3FDdTEcMtEuNfSXFx lbm [file] ICAgICAgICAgICAgICAgICAgICAgICAgICAgICAgICAgICAgICAgICAgICAgICAgICAgICAgICAgICAg ICAgICAgICAgICAgICAgICANCiAgICAgICAgICAgICAgICAgICAgICAgICAgICAgICAgICAgICAgICAg ICAgICAgICAgICAgICAgICAgICAgICAgICAgICAgIC AgICAgICAgICAgICAgICAgICAgICAgICAgICANCiAgICAgICAgICAgICAgICAgICAgICAgICAgICAgIC AgICAgICAgICAgICAgICAgICAgICAgICAgICAgICAgICAgICAgICAgICAgICAgICAgICAgICAgICAgIC AgICAgICAgICANCiAgICAgICAgICAgICAgICAgICAg ICAgICAgICAgICAgICAgICAgICAgICAgICAgICAgICAgICAgICAgICAgICAgICAgICAgICAgICAgICAg ICAgICAgICAgICAgICAgICAgICANCiAgICAgICAgICAgICAgICAgICAgICAgICAgICAgICAgICAgICAg ICAgICAgICAgICAgICAgICAgICAgICAgICAgICAgIC AgICAgICAgICAgICAgICAgICAgICAgICAgICAgICANCiAgICAgICAgICAgICAgICAgICAgICAgICAgIC AgICAgICAgICAgICAgICAgICAgICAgICAgICAgICAgICAgICAgICAgICAgICAgICAgICAgICAgICAgIC AgICAgICAgICAgICANCiAgICAgICAgICAgICAgICAg ICAgICAgICAgICAgICAgICAgICAgICAgICAgICAgICAgICAgICAgICAgICAgICAgICAgICAgICAgICAg ICAgICAgICAgICAgICAgICAgICAgICANCiAgICAgICAgICAgICAgICAgICAgICAgICAgICAgICAgICAg ICAgICAgICAgICAgICAgICAgICAgICAgICAgICAgIC AgICAgICAgICAgICAgICAgICAgICAgICAgICAgICAgICANCiAgICAgICAgICAgICAgICAgICAgICAgIC AgICAgICAgICAgICAgICAgICAgICAgICAgICAgICAgICAgICAgICAgICAgICAgICAgICAgICAgICAgIC AgICAgICAgICAgICAgICANCiAgICAgICAgICAgICAg ICAgICAgICAgICAgICAgICAgICAgICAgICAgICAgICAgICAgICAgICAgICAgICAgICAgICAgICAgICAg ICAgICAgICAgICAgICAgICAgICAgICAgICANCjw/yTVjA3snaXNetiK3S3cxIp9MQi9ALZ1py0KaAZUv WYxyjgKzMatSWgWlJPZlFezGRrf9ZJuuQD2ObJFdJ7 EyU8StJUiyEH8AUXYbMELpcHOoAZCxQTOvOdN8NSGyOYmgUP3IaRJxMRjsNOFgQEJgCqBaYZRbCPEqZL OmQACcAAPLSRVaOGRsHlQqOZqwSQ0Yj2EzdIO6BTl+Vo9PMW5en7ZjGKxtKaXgLW5gny7MJKmXZlKeM1 ZyfyM5PWZ9IQHxFo5QBVBdWIHxjHGfUXKuDXQGXxAf P8BsiZ76YBMXUj7+BTullkKcOvhQJfF0NOAyg2IiNRc6TR5ZREVdILa1uKIsLDNIXOB5TEoeY85uWAWg DkL8L8rmESPKEVWpaAOqGZ9hOk6zLQOnRDAnJoA6KZWCFA2SBPZxKVIjoCXwBWRkYREIQU3ICLgiPPC5 QLUgvrCzpZOwXWbkNE3KFPHtzwWmTaOvOJYVJMp+Pg 2EFS7wq7AdHHacRVJuUV3zgk9XIJcUIcXaJ7C7fVBaF5R9FBauLu0LYHSuVBYaTxHvGUEUHUyrYW3UEY 6ylqI9IZ8QfWPhGJRsKULrzRYnVLl7Q48bdDCvUSzcBD0VIFM+Damon+Jp8KRQCyJLBeENTcPgZkLXZEQy UoG6WhJ2TJk6FfK4SaCX08hTrsrjFyPAxyEL3MQJ9p VBObNOCWPM8QuATzsY3jpjLoQoSwGYKIRvOxD78fvRAmJSTjVEPiRGFkTi7BBSLsX0VekvNhfKmjycNc SHErAUTNLH8FCFiwzeZijTKlrWtjUW02pJaxGU2YDr7ENqWjKQ4thn9TcAJkOg8ASPCyGl4THSRrBJIs LUZrVTG9OETuZtQqKQemQSNnTENgRCT3BLXoXLApOU 7LXgLjZSIyLzIdPIOkJNInUXBuqd0EGLOaYWBuZARaGNPnVBAnNYGiVHdqUVPiFSEdLLZ3YYNiEOPmLM 7EXvHhKACgVYH2AQQoHPDcDQUeyj6DVEMgSVUyXKHkAMNfNNAmSQAgLKuwVWKpVPN6REErGSIcIHIaME 8DVhDaOAWbLRrqGBBaWYMnSFHhqb6ARILsNIRtKzP8 GPGqCFLnLDZpJKfoBXRqNFKdOie9IUGmTGXdAR1QXkBvRSAoTLF7GadlXIAhVZEase2OHHSfFFMbNDG4 TPFhCVXkSGYaAJsjAUNfYXD2ZrswEAMyXEHfYU1XZpSkOWZdGCs2SHVyEGXmYXNmnh8YOEYaOVFjBMJ3 WpBbQTLfHGFmHFosPZXlZTR4QoSgLNPaSUFtRR6YAv XkVRTmDCg6QqBjJQXiVOCrcm2LFKAiWSGuLVz6YKWsEJMrIMToLJxnHKQzCHFbHVc5BDIcBXHsOB0TNd ZoWLWbRjHgNUVeAZFqFTGqty4NMOCeDNXaOgC6UKGmUKBuXSIvUEtoMVKcWOMeMKSdMZIwQACnTA3CYm OhTQGsNvT9FbBjLBHpXAHbfm3TXGTuKTZhLZUfXKSo HVEaVUYaQSpeWUWtMUI8XiA2IWIyBOCwOJ7YJpZyGBMzToQ1VrvwGFTfWLXikn3ZFZWuRZQjZGe1RnLn EOVgRQPoRAziACOjTQN3CJWiEKYsLDLvQR0MBpMjTIZlJxY2NmHiSBXkSBOgwy3OONSdZUCoCqJ0VRPs GHZnEWKoJKwrDUDuFOB9VgEjXHZlNGYuAQ6NHxDnYT TaMjC3WeNeUOIrFYOpjo0HKHFwWEFxTNMcKMNgQGBzGGMnFMrqGZFtUFU4TaIaDMXkHSNiUF0SFySfWU VgVlclKbsaJVIcKNNgxv3NeAPjePjixk8UQIgLBs1FmWaqFEN3QDigZc2lbYCdOAFaTGZCCl1BzjMwZR QpDPQKDAnpXWVcNAIhSfO0MhzaKhL7MOqnMpmhMql0 FJRsLQa1QDR2ZiPdPaB6XPXkBQGhHqQrASMhSSC9H3IbEXwqCMTaUMUpLeopTCC+PA0iHYd+Zl0Qm9Db ygU3gdGtMNqgTUH0Zt0PKEFCA6CBQp== ID Date Data Source [id number] 10/07/2021 09:33:00 AM EST [facility] Name Value Range Interpretation Code Description Data Sally rce(s) Supporting Document(s) Specimen source [Identifier] of Unspecified specimen [facility] Methicillin SUSCEPTIBLE Staphylococcus aureus Polymerase chain reaction assay was NEGATIVE for methicillin-SUSCEPTIBLE Staphylococcus aureus. A [facility] Methicillin RESISTANT Staphylococcus aureus Polymerase chain reaction assay was NEGATIVE for methicillin-RESISTANT Staphylococcus aureus. [facility] ID Date Data Source [id number] 10/06/2021 08:42:12 AM EST [facility] Name Value Range Interpretation Code Description Data Sally rce(s) Supporting Document(s) [facility] CRWHZw1bAqZSCyXzs8KvJyLgVTFwLS0swek6R2Q3vDFuU5HjkBQwl6miR3LnO0UiLVLtDKVOUO0RiWKy jb2 [file] 302L/Sh6jm2ptDc+/8S+/41G84S+7+d/K/Y8Jx1097 8ynwHkxe+dPc2SQl97QqC5ZfgaE4Z3or6N4858420Ry4L486/Lz540311P+wPpA+rt8XrL7Pbxh9ecyc 4ejjfNMcLj6rEcgemD0hxGFxiGSW58tTcMXW+ImNInHwlva6jLSfNm9s1mjJe8/x3euugplgrf4w1xhJ fRJtfdvNU4Z0P1+2nE1uAer2aVO0D6lDrLxQ5pm3dM w1z6mLI6YN5uqVhjimcwqf3nz72dig+Q/7Tng/hPOz+A/m1hNY4Sa55Z0xYmhE5cYvrk/SD9+0z4GVnn cEL2EL2lsIA9TL7rfHh1kg/sdjObszId9gDhj2nl5kDzjJ3ZKki5+X8JpC5pDgD2cOcZ2lHaT11IwJ73 P1j+JbPxsE8Vth3X1IoviyV1JmeszFhGvM+LbSZ8U2 Vc/supervisor backfilling+mD4QQz0A+kwVsHzTR/3zjEeTz28zR+Oer/GzLz2W3siwv+hseqFDH1Ct+Ik9C7X2dpy0SmKc7 o8G0jC61W85J8EY4+1aKpFSlVlC19Ou509dnT1N85Hg0OldgMHpZSGb/5vIeWhd998QR8Puq+Bunz+pC tW+oPN/4Y13NqkR0zwPR+EwsFAWIMrf02v4i4V1bA1 m1zjnI3qrkf7w9M7ninD7rf0zx121gIu7dMS23xh72K4Mpm10h++2rWH1e+4ura8+N1708Okz/8u9V+l d2CrcBW/bxtHyuALyed0snfnc/8qwrjs/pvPu/8qfK7s/asFOz0CvW+Ntfhr4Xb1/dhtz4IW43qfYa5D t4WeP+wbp8coLZKGAB2+V6Btgk1Gcsg9faFg+Opvwa WxpF37Y7O44o6rqMOZBK6nS3pI1zrJN0S4k20g+O0/iJfD8TN/ef/WYEhR9RFw/hC/5cRzalmf3/mTnu X/zuv0nir2B9X+UK/h5adm3OnoKO8+gfa/FR0+fWX5K0w/oAS3Qo087x7GhL+Xz/s9g8E/4HzeQ2k90y u/FRf+Ta+ocOTr8cuSgct0SuR8k9Aha2/TR3cE2a5J +EfbQG9ynu0hoCYGe1wjYI6o9U0LL0pcxrDl+7O9245pVy0l7Crk8DIpZoxSox3nfVCwqQddxS+hnHbt rcGeha/Tdy0uMb7L+jAjpeROf3Jhsio/d+J4izWT2jzlcp30/U1X/79xvqSx5/GyQu61X/ie06x0iyH0 Ib2h/B78lFa3rf170e+8H3h/AE2FQhHpMI3dHvH6gV eeT6RjStv4wqwoKtLDgtx3GDg+agSz09v8zU4qRfmI+/1+d/x13N5gicRD5dU0ut+ofnC7Hhykg6yiZ9 /IL4b41jCV11c6VqrOl91i2CfeEjOYnUtDI0P000nGfv6qv5Fjq/vxnad2+Jg0XxHXUgSLR+z1aiu712 wqq9o7XGjSFdEqVwdMzz6f3PMTlPIvhdAG7K8nUhmc pDvev+izUszgKKq5FlX0B8CyueGJY9Sh+Pb60aLPvoFBipmk0Re9hqz1fN30Uym+w5Kbgy0+vt9Qfv/i lip8lc+BcHs6MK3EMv62tPzha0Ro6oIStjDT3NW+skmizuyc6AK5cRuwCb/Xqx/hK8/qjikwj5uybQ+R 7ubFxOVH9T9aW29eg4aiUCp+73ou6e78tR+/7+/I6/ uM9+nCgrqY5in7kb0zJ14/37/+zP3pxKTsyJy3QxesVvW/786Olp5e/q74TT9L+yF2KQxQ+ndA328+Kw Vy2e2/td71aLQ+UnrF+xXltKsHu+ujJv/VeUa6X/3IfyXdwn/X1Q8bcm6fk/2nc5k2wygk/1cIv7Oay0 zcRyE0y8Andlc4fu06eyc7krNg41g2i1xymancs3Ly hK+z8ycPfg45SDbO8PO5nLq+g0Og9s6uu2W568SnjR3w3N+3Cnn7jV47H+RtDe+3aw+tFzxfvcl/le87 dcckC6IU0bgAX2js5i2jb5bgV+f9u361ycc1dTWleb2Ecvhomf49jjPDnYEnQ0/c+Cp/a9heY39rO1I0 EyRSaX7XvYWbi409/bvDo7/Po9y8A+zD7876a7z8yD aH0td1P/8sMGXuvr1wW11fEVOs/k5ObWt5XPArq/tkQW9p3E5TiCunVK/9Tf/Ie54/2e33WTwH8+96f0 dCn/q3eJu2by/DoL/vQN6Nr/S446qx5e5/MK1Z1nu21gfSpdijgEIuQb2+PqP/Rr/jUjjSr/+5CV/lO4 N2B1MGd+W/ybt15Vv+V3nhEN4oi/9qhzsnBmuJr/IZ 20hFC6VhxOUOak/YPtB/gc08hVZ9Gy/9fQTev+kbExTeaZdNXRlA5vEE0rKJzWg/Fz1/2wWDuH4bq4Cg OlmGenRd1ok6FM1A273h2+OVOwuO4oM3se3hfj22lpW5EIdoCLq2S6M+1/v8TciM7HriyPBzz5/3ZYcf nMQ65o7rGNIdVP599h07S+lq7vV++5WawzV7Y0m33w uv7ag2jg/m6uuMAaiKHdT4pw4DO5F7vEq8dSvs6Y0h7qr9h/jfCl8+12RHZ7xCd7/+KAam4W89TkGk2/ 0GO3w86RY/0jdd+N2I61zg66rTNG/4es3OLg4lag1+n+/4xCeO0Gz+7wAldVnc86YZYy0Cf/Kq11Y8gk 66Xq6/rst/lJBJ3NpX98B7DhtQGnkj/+0JH4dcPjKh vurCV+cW3IkCiychS/LanX+8OixcaKlyKDf1721Kyk8Qu2fJrXhA+zsY+JkFypUIU72idwvun2P54gZS 4O8xBjpy6val/eXHKp4H09Pi8F0Mr+L7Cl/lO3d/fdsD9Dx9P4mKeH/ujO63Rg/9Hc331ouf2/fcH8zn q+pOk43BW/2zjTrzpEt48E55zc5dksA36f0Kth6Uel kAgk31Ph7q+aj3ux/ey2Y0Xuexe7ki/cMZ0wsNMm/CV/nc8X7/zo+93/3f3u/674mwTi2nkjy+6kof33 Gs97v+3s4zt4iDxE90LlmkrBOIQl74B1c2U+1mnqfCedGU938RQ1vuYKk0X7wslBPs5t9y8+2k5j8hKE 1QzvjOdzuA+SnwakWh97s7ntdAJl7zaGZXgraw0ILT rPx9pQIPW+21TAe+2kZWuqvtdPTGw27vhylR3esARj9c//bA9xW+ynfwfYWvzvMX1/T5140j3/xGH9e/ 0cf15/Rx1wtd+Mbo62cFZfkTjBwho9xh+0B12363+1EfM22jR5n1h3YKXQxby0jgT6p/0Z7r3+jyX6n9 8l+d5/t++q+UftdHfULeWVFOw/hH04tmr3R/90P7vO glni1mwT/XruS/yvTrv+pzohzIO/Y8F87moyqt+nO6/Feez1f/fgMd6cs/VU//gT1xkFi+92Q7E66X+E qyr7v/2xe+80G2B6vi/Ff5vFD+0A64qjtk3C8bi//Ky7VnL/t9sgq6nnL88x8xel6XH+tOI5hepbBzLN 67/MnYher6DtysG6YzUG2N7HipJ4q8e/6IO69jiozH fg87HMs+/rqUrbztliWX6cjS+9c+SmkOVIiaGzlPtnEw6gegmbp21tfnLr4qsTTa5/p3h/EmDndbSNf4 tSMCVh1K/Gvx+6wBs7lQyxmF50QJj6cYaguzTub+YNPzXi/0b+wr81buR5v4jHl4TClh5t5zLxQlr1/n Bq8kDTabgiQhu59x7L5BJuKwkBHpiYbN2Ys7xqZrmO Wiv5ge7e/kQ2S9G2h3/egt7nk4k9gK63+1bRj+K4f/yuG/1mr8q88ro52v7ZzmoO/0j86rrvF3ptx2ip SlGK1hw6o7wtji4r2Yw+SqL4114upkV8cjqnc1x30vtqVgd11f+2Iy62yP+90vc+1QTe8H3/7pf80ukb 3p2h/U8/VvuKP/Cl9l+Yn435beZYeJ6pdj5t+tjMT9 7r/v2Nv0A+vS40c014kl3UrrcFsnj++416ac25K76BzROrgH6Wk34b+7/FcZS1u+/ocdcZt+wA0mv79L HW+be/130Dd2CXcqWt3BL3w0ZZ5umHfIlfdz+qE5sY94YIea7msAgn720MI5h5o8Jf40yYZU47/uwFce GJ9x/jxV7d48+b2bkW6nJ/seCRtD9raoqxpi73sl5w 9y+I57GW5W/qDn/mA+4/8EscYR9860f+GhjJ0k602BxJ43op+7/vVpSDek3/IiUdN2AnzvJ1Sd/VCfHe N5cmw9X/IKX+Qa5jg5qOykPv3/0udE+sL7d//I110P+rrrQV+Zx6B0AkevZc9vme/3ukoK97j+OtId6c CeF6gt1wRoz0x+0nH+nrCo0s5H9btRju1Wtp87MtL1 3e+OYki/2ntbEA2Mz/5pCDs5ZTT8MehiwG/9sgC+qyO7y3NWtYaq/TrrErnkiyMwfQV8sjK4G5rth4ad 4smwu/8bdvd/w64/NnC+RztdlgU55lP49rNIt0RghfJswP08c9WY6m7+Kohtt0adANoHC+10TSSyaLv0 LiUUpcpiTuxN6v29G/iOC0ZjC87Dvlf4pI2dj/9Iz4 50R/cO5MO5G+zL0vv0l3dA5Vxkk/KlBGx9WvY/7zuWfofrCq0yl6AK8tS1jx7F+MbuMT4V0F1x83w/hK +fgnwnsWB3D/LmM+vsAE30rnB5ND5RI93d+604ZG9P1mira877DR6JihvL3km9eoL3ep/4cR79g03Lzk e/4z93PTdO+yC3O6Ld9g/Q/rseDIc9+10fhd/zKiH/ DN3lw23KLfO5U+US9K3tHcvNxYEbS/919F+/+93hd38/XJ3Xh63kuUV5cR+4/miW944M+a/O89U/9gdD /ex4vojgTT/r34i7/m1166BCmL4XBA+8j/EK/Chloé/acdUd7vI/cKpiQqa6WkM1Gq9ss9vhpt9jo2ct88 vH/OBpSy67P7Lc7d9PYGt45xQYsXmllkpu/hq/OMdH xfnG+DTByi7Shb/83CC4OMM/Y80X8n+q/enqxxzl7iTr/7ed67jsp8n79t3yJDxM6e0/jRQjg6850P9k 3uDE6qUL2Scodn96Q6vD18m2ujfwchm3+/Y03vsx/UsbEGy44L9+7KilZGTp61Sq+O4tvuDjmTPb/1wg 4x/E6p1f7CKH3+T7w/0a5yY84H9/NW865dqfe3oXIs [file] 1wejQ1pF131ZVsj3d5x0/qs3N7z/7Xdf/8vbd7/79t Pnnz68/hzPp4962cDd9i83+joqS9w87mmG//LzDx9/+/jveme0f/g1kYibbki2c2eQM05+fvnh+8+/+s nnPNrsk+K51n8Cft5uDS2tti0kt02hd/Yzh09k48/c3vCBR905/Pbj//D4rbr86837+71vjl39+Pj125 phc31p0Fxjaz9pQ16+ogHz0v8/8+nt+o2lhryifXsb zb4w5DWNs/zct45yrhL9584+fPX5v/fH1Yzq494+/djKp48vL/WKb9hX7/cS4i568Nyhdfr15r1+9fb7 T1/8gyiPevBE+lys41pnlu/xa3f0gqyr91++pp17836+9fkvv/pH+Tx9/In0xV//8u9//Nuff/y3t//2 v96+/+Of/vTD3/724w9/+q9vv/rhL3/88U9v//pf6v cFb6r5077sXZ6R2y/ma43FcqnV7sivh/53e8KXkU9qLt/851/8B/PdqyZcywv+8/bJ51ZCPIIyx/nfQE 0Zv+j+5/RDI6iJuXWw+fYrNvZZXxpNFqzXt9/9LdGbLDZ32wST61lF90w2i0nj/WyeN25j5Vagg58o/q 9X1/nl2/eff/ns26v69lUab6zXpk30LdXAWz2bbo7H zyb7y9+vhn31KqQpUMTPAlQxn/zLf/7z299++M8f36X+tvAk6NXZ07Wt+JlwZXEh9slnM/B3H9/++Jf/ /PFv/8/sBr5GZ2I5j8EFKhB+mvwBf//x27d/+5+vwv/xr3/9couclG3c2WxNN/v9p1/8/tMf+CX0VyTt rV/02d+ttjOx2sUzW1n5Am4iYMsKCKeW9c7g6zC+9/ OPP//09sP/++N//H3PuT+uzJ+/2qKKWa1xi136sfV+19/+9Z9+8vb5Ef/nj3/+4U/vfvF+h3/xw//8ww //8ccf/qCQSJ6pP/3jX34a//xDJv568/4+7q3Ej3/9658/++I1Rh4121124j62xum+/iyEnYLgwT/9+I f/8Zc//uYOiz4cSu4ub/cAm3v89i/+x3++Wt2/ffbN p998+Ea3ZClPON/8zW9/+xqYv/8LH8SsJ/7/v/WqynNmemX8rz/++34v7h3h//53yvK1ggv4ZiqvGpJB fYehS77AuhKc3AdoXaSXD4X+2TBvcA8zp691TLvuD+rPv/eden+++ds89iMB3TDMvix9S1A0HmHdCWByy wxFaxQAbGF9IXZ6ki4RyXjV2CRUzc2GnWWuxPMn1iI QmHKuphfYmv7DulydoG7Jup7TbVrZpZLJtQkUpItw6UTHxOpD7vDZqEuUkOKVcY7KdTNDzUuF1GfPgDZ TIFG1RVRRmdqSkYnWsBAE+GbGgAH4fmeptZEBum2UbVAzdNEmbYVVjX5C0nIwhZLLwF0SpwU53LKErN9 HnntH4LTX7MOWnPbClWYTrtSLmHPFeBZC+TqJeEQ9k tkyuIDBhj6WzIFslHGK7iU2oEYuDFYNHHRbYSWikSfZ8w36hjiMFJWMkYONgZN8WlwAsuWjonmTiyKWa NSZ1CgApHALgENSuKSWcZKBMIIZkYRGcEZYzSOJlF9JivJhkYAgTKSRQQIvCUGjpJqOsr2D6FIUptoXT ENSHFkcvBtlSTPjGXCI6PSbyMsfnTB1PkONxOOA3ZF lLUOTFTQdDJRypShNdm8L6ZQOdV5VkYHRsupJhUAOTCUgwJiahED8wlOjigqsbP5PqyCAaXULTBCFfOD QbAETyKFTgG4Ssv2R9V9LzENjLUBVIGZeVROhoTvQ0m23qirLWQASkBLOsYR8+LC1la7HxZn8WIJDsIK 6ihnw3UZ0BzFUxPL5NQZgzcpCbE1tunqYuMcRbJDDO JJ2kX2CodJ10TWB+UeRhWJ5wuph5dsYzPkLnNMTxCGQtLKKvSBpnDIOkSWZhPBWrVFT3CWY1UEKdXrDs EHOmFql9RHRfDEVdSVGizjOTKYExKFA6WYVsEUKcGNCjSSBdOYvnYOBzCDA9Ivt9HKMcIACkEO1uMdOd NLEdGEJlVAOkMaM7ByLuZeZYOFOpXORoDPVgSiBdSO YeCANyFLtlELLhKOPcWRe2KVAiQXPaUN5oOzGnNZVtCWYzDXRqCWHaYUJpseWOOEPlPHNrCPC5UFKbLN TqTBRoZQfqSIFfNZBeWNR8IVGsGSApAR7wEgZiEMIiEMV3PjBjJBGhWRJrvlUKDGBfETQeQFT8HHMgLW FgYLYlQHkpOLDyJVQsHdW5LZNcWHXhDB9oThOkYQHm QNM7MWJwFCUlKZWrcoMHOKAsJNDkPWd3WsPiSZOwZXRqCMdqWXOyJIGgMYdsFODaXIGrLK8zKaYaOACg BJItKWVxHSSsHGUnssQPUNTcIPQbGJX3WfKvKPFgAVQrIPltOYGvYFWyHHZ5BRYyHSZbHI3jUhNrPIFn NjkyMjAgMDAwMDAgbiAKMDAwMDAwMTYwOSAwMDAwMC LvUVapBVGfUCMjWoJ9SBJuHBByDO5bQzAwRUYgTZQ1DVIwYOWaXYTilsHZVXYkAUSfEFDiFLI7SFFsIW HzVPw6szPpvSGhToj5Ei6MrVchQYG2Vf8KukMkIBEnEKIUYg9Ia882BZFdVALIAua+PgpzdGFydHhyZW OHGoh3KLPQDOKCZ8I= ID Date Data Source [id number] 10/09/2021 08:24:09 AM [facility] Service Cmnt XXX-Imp : L HANDMicroorgani sm XXX Cult : Smear: Gram positive cocci in clusters suggestive of Staphylococcus.in aerobic and anaerobic broths.Called to and read back by7A HIEN ARTIS AT 0149 ON 10/07/21 BY [id number] aureus.in aerobic and anaerobic broths. Name Value Range Interpretation Code Description Data [facility](s) Supporting Document(s) ID Date Data Source [id number] 10/11/2021 08:44:24 AM [facility] Service Cmnt XXX-Imp : R HANDMicroorgani sm XXX Cult : No growth 5 days Name Value Range Interpretation Code Description Data [facility](s) Supporting Document(s) ID Date Data Source [id number] 10/05/2021 10:44:55 PM [facility] XR CHEST FRONTAL ONLY [id number] RESULTI nterpreted by:MARCK ChaviraROCEDURE INFORMATION: Exam: XR Chest Exam date and [...] DOCUMENT HAS BEEN ELECTRONICALLY SIGNED BY MOOK DOMINGUEZ MDThis document has been electronically signed by Mook Domingeuz MD on 10/05/2021 10:44 PM Name Value Range Interpretation Code Description Data Sally rce(s) Supporting Document(s) ID Date Data Source [id number] 10/06/2021 12:18:46 AM [facility] Service Cmnt XXX-Imp : NoneRespiratory P CR Panel : PCR ResultsMicroorganism XXX Cult : See Labs Tab for 2019 nCoV RT-PCR resultsHAdV DNA QI SUREKHA+non-probe : Not DetectedHCoV 229ERNA Nph QI SUREKHA+non-probe : Not DetectedHCoV DGV8SOG Nph QI SUREKHA+non-probe : Not HoyiocarHBzEWD49 RNA Nph QI SUREKHA+non-probe : Not NkihxhtmQCoNWZ11 RNA Upper resp QI SUREKHA+probe : Not DetectedhMPV RNA Nph QINAA+non-probe : Not DetectedRV+EV RNA Nph QI SUREKHA+non-probe : Not DetectedFLUAV RNA Nph QI SUREKHA+ non-probe : Not DetectedFLUBV RNA Nph QI SUREKHA+non-probe : Not DetectedHPIV1 RNA NphQINAA+non-probe : Not DetectedHPIV2 RNA Nph QINAA+non-probe : Not DetectedHPVI3 RNA Nph SUREKHA+non-probe : Not DetectedHPIV4 RNA Nph Q SUREKHA+non-probe : Not DetectedRSV RNA Nph Q SUREKHA+non-probe : Not DetectedB pert.PT PrmtNph Q SUREKHA+non-probe : Not DetectedC pneum DNA Nph Q SUREKHA+non-probe : Not DetectedM pneum DNA Nph Q SUREKHA+non-probe : Not DetectedB [id number] DNA Nph SUREKHA+non-probe : Not Detected Name Value Range Interpretation Code Description Data Sally rce(s) Supporting Document(s) ID Date Data Source [id number] 10/06/2021 12:18:19 AM [facility] Name Value Range Interpretation Code Description Data Sally rce(s) Supporting Document(s) Specimen source [Identifier] of Unspecified specimen [facility] SARS-CoV-2 RNA 2019 nCoV Real-Time RT-PCR: NOT DETECTED [facility] Assay Performed [facility] Patients first test for condition [facility] Patient employed in healthcare setting [facility] Patient has symptoms related to condition [facility] When did you start to experience these symptoms [Date and time] [Phen X] [facility] Patient was hospitalized because of this condition [facility] patient was admitted to ICU for condition [facility] Patient resides in a congregate care setting [facility] status [facility] ID Date Data Source [id number] 10/05/2021 11:59:00 PM [facility] Name Value Range Interpretation Code Description Data Sally rce(s) Supporting Document(s) ABO and Rh group [Type] in Blood [facility] Blood group antibody screen [Presence] in Serum or Plasma [facility] Performed at [facility], [place] Confirmed ID Date Data Source [id number] 10/05/2021 11:38:10 PM [facility] Value Range Interpretation Code Description Data Sally rce(s) Supporting Document(s) Prothrombin time (PT) 15.2 s 11.6-14.0 [facility] INR in Platelet poor plasma by Coagulation assay [address] [place] [address] Routine intensity oral anticoagulation I NR is typically 2.0-3.0. Target INR must be clinically individualized. ID Date Data Source [id number] 10/05/2021 10:44:00 PM EST [facility] Name Value Range Interpretation Code Description Data Sally rce(s) Supporting Document(s) SARS-CoV-2 RNA 2019 nCoV Real-Time RT-PCR: NOT DETECTED [facility] This lab was ordered by [facility] and reported by [facility]. ID Date Data Source [id number] 10/05/2021 09:45:01 PM [facility] Name Value Range Interpretation Code Description Data Sally rce(s) Supporting Document(s) Leukocytes [#/volume] in Blood by Automated count 12.6 10*3/uL 4-10 H [facility] Erythrocytes [#/volume] in Blood by Automated count 3.88 10*6/uL 4.1- 5.3 L [facility] Hemoglobin [Mass/volume] in Blood 9.6 g/dL 11.5-15.5 [facility] Hematocrit [Volume Fraction] of Blood by Automated count 30.3 % 3 6-45 L [facility] Erythrocyte mean corpuscular volume [Entitic volume] by Auto mated count 78.1 fL 80-96 L [facility] Erythrocyte mean corpuscular hemoglobin [Entitic mass] by Automated count 24.7 pg 27-33 L [facility] Erythrocyte mean corpuscular hemoglobin concentration [Mass/volume] by Automated count 31.6 g/dL 32.0-36.0 [facility] width [Ratio] by Automated count 21.4 % 11.5-14.5 H [facility] Platelets [#/volume] in Blood by Automated count 530 10*3/uL 150-400 H [facility] Differential cell count method - Blood [facility] Neutrophils/100 leukocytes in Blood by Automated count 73 % [facility] Lymphocytes/100 leukocytes in Blood by Automated count 14 % [facility] Monocytes/100 leukocytes in Blood by Automated count 8 % [facility] Eosinophils/100 leukocytes in Blood by Automated count 3 % [facility] Basophils/100 leukocytes in Blood by Automated count 2 % [facility] Neutrophils [#/volume] in Blood by Automated count 9.39 10*3/uL 1.8-[address] [facility] Lymphocytes [#/volume] in Blood by Automated count 1.74 10*3/uL 1.2-4 .0 [facility] Monocytes [#/volume] in Blood by Automated count 0.96 10*3/uL 0-0.8 H [facility] Eosinophils [#/volume] in Blood by Automated count 0.35 10*3/uL 0-0.5 [facility] Basophils [#/volume] in Blood by Automated count 0.18 10*3/uL 0-0.2 [facility] Nucleated erythrocytes/100 leukocytes [Ratio] in Blood by Automated count 0 /100{WBCs} 0-0 [facility] ID Date Data Source [id number] 10/05/2021 09:55:03 PM [facility] Name Value Range Interpretation Code Description Data Sally rce(s) Supporting Document(s) Erythrocyte sedimentation rate 103 mm/hr <20 H [facility] ID Date Data Source [id number] 10/05/2021 10:04:28 PM [facility] Value Range Interpretation Code Description Data Sally rce(s) Supporting Document(s) Albumin [Mass/volume] in Serum or Plasma by Bromocresol green (BCG) dye binding method 3.1 g/dL 3.5[facility].2 [facility] Bilirubin.total [Mass/volume] in Serum or Plasma 0.2 mg/dL <1.2 [facility] Calcium [Mass/volume] in Serum or Plasma 8.9 mg/dL 8.6-10.0 [facility] Chloride [Moles/volume] in Serum or Plasma 97 mmol/L 98-107 L [facility] Creatinine [Mass/volume] in Serum or Plasma 0.69 mg/dL 0.50-0.90 [facility] Glucose [Mass/volume] in Serum or Plasma 87 mg/dL 70-140 [facility] Alkaline phosphatase [Enzymatic activity/volume] in Serum or Plasma 92 U/L 35-104 [facility] Potassium [Moles/volume] in Serum or Plasma 3.9 mmol/L 3.4-5.1 [facility] Protein [Mass/volume] in Serum or Plasma 7.3 g/dL 6.4-8.3 [facility] Sodium [Moles/volume] in Serum or Plasma 138 mmol/L 136-145 [facility] Aspartate aminotransferase [Enzymatic activity/volume] in Serum or Plasma 10 U/L <32 [facility] Urea nitrogen [Mass/volume] in Serum or Plasma 10 mg/dL 6-20 [facility] Osmolality of Serum or Plasma by calculation 284 mosm/kg 275-300 [facility] Creatinine/Urea nitrogen [Mass Ratio] in Serum or Plasma 14 [facility] Bicarbonate [Moles/volume] in Serum 27 mmol/L 22-29 [facility] Alanine aminotransferase [Enzymatic activity/volume] in Seru m or Plasma 10 U/L <33 [facility] Anion gap 3 in Serum or Plasma 14 mmol/L 8-15 [facility] Glomerular filtration rate/1.73 sq M pre dicted among non-blacks [Volume Rate/Area] in Serum or Plasma by Creatinine-based formula (MDRD) >6 0 [facility] Glomerular filtration rate/1.73 sq M pre dicted among blacks [Volume Rate/Area] in Serum or Plasma by Creatinine-based formula (MDRD) >60 [facility] ID Date Data Source [id number] 10/05/2021 10:04:28 PM EST [facility] Name Value Range Interpretation Code Description Data Sally rce(s) Supporting Document(s) C reactive protein [Mass/volume] in Serum or Plasma 273.0 mg/L <8.0 H [facility] ID Date Data Source [id number] 10/05/2021 11:05:13 AM EST [facility] Name Value Range Interpretation Code Description Data Sally rce(s) Supporting Document(s) Progress Note [facility] TZSFQu7xHzVEKrEt82/TJPckUFPkb5GxCZwjDWd3JRhnDAMjY2RyFOM9lK6vKOK8ZMwBGrAhMkMhMVDe lbm [file] ICAgICAgICAgICAgICAgICAgICAgICAgICAgICAgIC AgICAgICAgICAgICAgICAgICAgICANCiAgICAgICAgICAgICAgICAgICAgICAgICAgICAgICAgICAgIC AgICAgICAgICAgICAgICAgICAgICAgICAgICAgICAgICAgICAgICAgICAgICAgICAgICAgICAgICAgIC AgICANCiAgICAgICAgICAgICAgICAgICAgICAgICAg ICAgICAgICAgICAgICAgICAgICAgICAgICAgICAgICAgICAgICAgICAgICAgICAgICAgICAgICAgICAg ICAgICAgICAgICAgICANCiAgICAgICAgICAgICAgICAgICAgICAgICAgICAgICAgICAgICAgICAgICAg ICAgICAgICAgICAgICAgICAgICAgICAgICAgICAgIC AgICAgICAgICAgICAgICAgICAgICAgICANCiAgICAgICAgICAgICAgICAgICAgICAgICAgICAgICAgIC AgICAgICAgICAgICAgICAgICAgICAgICAgICAgICAgICAgICAgICAgICAgICAgICAgICAgICAgICAgIC AgICAgICANCiAgICAgICAgICAgICAgICAgICAgICAg ICAgICAgICAgICAgICAgICAgICAgICAgICAgICAgICAgICAgICAgICAgICAgICAgICAgICAgICAgICAg ICAgICAgICAgICAgICAgICANCiAgICAgICAgICAgICAgICAgICAgICAgICAgICAgICAgICAgICAgICAg ICAgICAgICAgICAgICAgICAgICAgICAgICAgICAgIC AgICAgICAgICAgICAgICAgICAgICAgICAgICANCiAgICAgICAgICAgICAgICAgICAgICAgICAgICAgIC AgICAgICAgICAgICAgICAgICAgICAgICAgICAgICAgICAgICAgICAgICAgICAgICAgICAgICAgICAgIC AgICAgICAgICANCiAgICAgICAgICAgICAgICAgICAg ICAgICAgICAgICAgICAgICAgICAgICAgICAgICAgICAgICAgICAgICAgICAgICAgICAgICAgICAgICAg ICAgICAgICAgICAgICAgICAgICANCiAgICAgICAgICAgICAgICAgICAgICAgICAgICAgICAgICAgICAg ICAgICAgICAgICAgICAgICAgICAgICAgICAgICAgIC AgICAgICAgICAgICAgICAgICAgICAgICAgICAgICANCjw/yGRhM1gunXEhnuN2W8mgLn5TSy4ZGP7qv7 PpTKMuQErymlTaHcvNJaMoWTBhMuyCXrc0SHxzJB7XdSQjS9QnM9JhOYpeKZ2FXFLfZSOgcTJjCAOlVV FvIoU5LYFiZGexRM5VuVIjNVfbDSTfSFEtIZ6JTPZt D525hwLnYT3ZLg3ILqGtQF0pdq9PIEmjYPCqXugLTah2GRpmDK9GnCSncZHxQRAsUTILDiEtS8piz4Ic OgTeSRIOTVcbXO9Az7MlnXJjNNn+Ow4GFT9pb4OzUSnhNZKjRH6maw4QJBxWVgFlG1GvxThnKSTbb4gh CZVuNZ8qiPFzIYS7QFivrQopRV8sIsFNRNUfgHpeEG BBGCVudSAlSC7mGe6zOMPqLYLwEfNxIESHQD9NRBOgELEszHWiALZcMBNNUY0GIYojWFO9NNIykpQofA KnXCfmUQ1BINRcsrKeBWcrAOMIETl+Fj3NVH6xn7CvVPnsNMCuFU7qjj9GYPtQYgQiG3R0wTNyD1E8GJ wmJv7YZKZvZZWuOOlbACOMTKnnSL8HPF0tovN1LS7X gKBiRVNmWQRgoBPmXJi2P15ddHVxVPktIV5NNDE+Damon+Te9MGCDeEOJxIMFrSbFvIERFPvIiX2EtG0KC x2LhI4DeBU50wAmivvKbBFpsNL1UBG5hFNNoYJXDUD5ToAFqrF8ztgBfEAMfOVVUGrEbR74plHYhDQDg QYN0ZYOgHv8FMUQxH9GydwRnaBxnwfWsYPLmUDJBFX 0COUmwibNisLVjpFfcEA24sWdcUR1FGq2MJrFkYG6wvk4QxPUjHw2JVVUqAu5JSJCnIIWhGLMkLII7IJ OxZfUxPWdlYMNhVLBxYUV8NHZoEBMmTC8IPhRpVHCrRHC5UCZcXTNrTQEmzg7MCFOcUKOdSFcpQGQcPK ZmNXKwXXqvOQGbOCFsBHR6NFOhLJIbHL4UTbHpFJHq QAM5CFhlEYQhUSRxdo8GZZHzLPZiOgFcNDSbHVYrVWRsWJgwKTLaZKYjUGipXQDsJXDbSE3DRbOvBECj WHHjYbFbKOTeHYYyfn4QTURoVKCjMcR9BwPjUYEjPNZeIHkxIZFzOCJ8TlI1DTLxMGCkWK3UVdChYTBx EMC8WQOlQXFyLSGgff3TKGHkZKAzPGuiRaXxSYMtSS ArRLimOOGoNAO0XLM8TVFfWMCcUK8YYrOrOPBkWWOvWoPdEYRgMIApzp6RJKIcDYDwXgQ4XbRwFSAxUS IhAJrrWSSmDGV4AZQsSEHtZAIlYD1QJzTiIFSsNSI2HfzaEFUzMVHupm8WWYJmOVDjOqB8PASxZYIfVV JuFQjgQVPhCSA2HJM1MYScBAJnJQ9EPoBpRCCnKZi4 BtrtIEHkAHKchb9ALIMmWZOyRZVwGPSfXDYpWPXoGRm5dcKtfJCgPFo5WU0XX0WrhqLtHaUSTm1Ip273 LZNjIGYbCg1JK4frIi9dMZTnGFXNMz4ZZQt7EWpaAdd2HBC3VhLdNbf0DWCjIoe3GnYtDUw8Q6QuQNa+ EArjM3WpCEc2OnO1WAX1XxJ9ArJaUEp1FbH1MNz4ZC X2DY8kKIXPYe7+VZrvyXVvzLsaQRASAmQ4Yey1FHwhKHHMUe2X ID Date Data Source [id number] 10/05/2021 10:26:04 AM [facility] MR LUMBAR SPINE WITHOUT CONTRAST [id number] NAL RESULTInterpreted by:Tray Carroll MDEXAM: MRI LUMBAR SPINE WITHOUT CONTRASTINDICATION: Low back pain, prior surgery, new symptoms, infection suspected COMPARISON: Lumbar spine radiographs 10/03/2021. No previous MRI for comparison. TECHNIQUE: Multiplanar multisequence MR imaging of the lumbar spine was performed without intravenous contrast. Exam was performed on a 1.5 [employer] MRI unit. FINDINGS: Vertebrae: For the purposes of nomenclature, the lowest fully formed intervertebral disc corresponds to L5-S1. Postsurgical changes of L1-iliac posterior instrumented fusion are seen with bilateral transpedicular screws, interconnecting stabilization rods and interbody cages, with multilevel lumbar laminectomy decompression. Susceptibility artifact related to the orthopedic hardware limits the regional evaluation, partially appearing central canal, foraminal and vertebra. Metal artifact limits marrow signal evaluation.Spinal cord and Conus: The conus is partially obscured by metal artifact, although appears terminate at the L1 vertebral level. Cauda equina is partially obscured by metal artifact at multiple levels.Intervertebral discs/Spinal canal/Neural foramina: Interbody cages are seen at L1-2, L2-3, L3-4, L4-5 and L5-S1 with associated metal artifact.T10-11: Included on the sagittal images only. Chronic disc desiccation with mild disc height loss. Broad-based dorsal disc protrusion effaces the ventral CSF signal and mildly flattens the ventral cord with at least mild central canal stenosis. No cord signal abnormality. No foraminal stenosis.T11- 12: Tiny central dorsal disc protrusion. No central canal, lateral recess or foraminal narrowing.T12-L1: No disc protrusion, bulge, central canal, lateral recess or foraminal narrowing. Small hyperintense T2 signal right neural foraminal perineural cyst. Ligament flavum thickening and mild facet arthropathy are also seen.L1-2: Status post laminectomy and posterior fusion. Small dorsal endplate spurring. No recurrent disc protrusion, bulge or central canal or lateral recess narrowing. No foraminal stenosis.L2-3: Status post laminectomy and posterior fusion. Small dorsal endplate spurring and mild shallow broad- based left lateral recess and foraminal disc bulge with mild left foraminal narrowing.L3-4: Status post laminectomy and posterior fusion. Small dorsal endplate spurring. No dorsal disc protrusion, bulge or central canal or foraminal stenosis.L4-5: Status post posterior fusion and laminectomy decompression. There is focal fluid signal within the L4 5 mm posterior to the intervertebral disks, with moderate to intense hypointense T1 and hyperintense STIR endplate marrow edema like signal. Findings are concerning for discitis and osteomyelitis. Moderate broad-based dorsal disc extrusion flattens the ventral thecal sac, with moderate left and mild right lateral recess narrowing. There is also abnormal anterior epidural fluid at the L4 vertebral body level, which may represent anterior epidural edema fluid and/or abscess. There is moderate flattening of the dorsal aspect of the thecal sac with mild to moderate central canal stenosis. Severe right and moderate left foraminal stenosis.L5-S1: Status post posterior fusion and laminectomy decompression. There is endplate based marrow edema and focal fluid signal within the intervertebral disc, and findings are also suspicious for L5-S1 discitis/synovitis. Broad-based dorsal disc protrusion causes severe right and left foraminal narrowing with bilateral L5 nerve root flattening. There is also abnormal anterior epidural fluid representing edema and/or abscess and also moderate to severe flattening of the thecal sac from mass effect from the dorsal paraspinal fluid collection.Soft tissues: There is a large hypointense T1 and hyperintense T2 signal deep posterior midline fluid collection extends 6.4 x 3.4 x 16.3 cm (transverse by AP by craniocaudal) from the L1-S1 laminectomy defects and directly abuts the dorsal thecal sac. There is flattening of the dorsal thecal sac from this large fluid collection and L3-4, L4-5 and L5-S1 disc level, with dominant moderate thecal sac flattening at L4-5. Muscle body atrophy diffusely throughout the par aspinal muscles, with superimposed diffuse paraspinal soft tissue edema. Paravertebral soft tissue edema and small perivertebral fluid locules are seen at the L4-5 and L5-S1 levels.There is a hyperintense T1 and hyperintense T2 signal fat-containing 5.5 x 4.6 cm right adrenal adenoma.IMPRESSION: 1. Postsurgical changes of L1-iliac posterior instrumented fusion with laminectomy decompression. Large 6.4 x 3.4 x 16.3 cm deep posterior midline paraspinal fluid collection at the laminectomy defects, with imaging differential: Post surgical seroma, infectious abscess, versus pseudomeningocele, and fluid collection exerts significant mass effect on the dorsal thecal sac with associated dorsal thecal sac flattening at L4-5 and L5-S1 and dominant moderate to severe thecal sac flattening at L5-S1. Further clinical correlation is advised.2. Large amount of paraspinal and perivertebral soft tissue edema and soft tissue edema at the L4-5 and L5-S1, with small locules of perivertebral fluid, with L4-5 and L5-S1 endplate marrow and disc changes highly suspicious for infectious discitis/osteomyelitis and surrounding perivertebral soft tissue infection, abscesses and associated anterior epidural fluid and/or abscess.3. Multilevel bilateral foraminal stenosis L4-5, L5-S1. Please see full discussion above.The above significant results of discitis/osteomyelitis with anterior epidural, prevertebral and paraspinal soft tissue infection, fluid collections and large dorsal paraspinal fluid collection/abscess were discussed with [facility] Renetta Mccullough via telephone at 1020 hours on 10/05/2021 with verification and understanding.This document has been electronically signed by Tray Carroll MD on 10/05/2021 10:23 AM Name Value Range Interpretation Code Description Data Sally rce(s) Supporting Document(s) ID Date Data Source [id number] 10/03/2021 04:05:26 PM [facility] Name Value Range Interpretation Code Description Data Sally rce(s) Supporting Document(s) Progress Note [facility] PJJPBe1wLdIDZvQe56/PVMdmHITyr0TiSEtwKHn0ITpuLBAhZ3HwPUO3hE5aPWJ6NSzODvOyXsYcYYIx [facility] [file] [id number]= ID Date Data Source [id number] 10/02/2021 09:58:00 AM EST [facility] Name Value Range Interpretation Code Description Data Sally rce(s) Supporting Document(s) SARS COVID ANTIGEN NEGATIVE [facility] This lab was ordered by ELEN yuen nd reported by [facility]. ID Date Data Source [id number] 09/02/2021 01:57:59 PM EDT [facility] XR SPINE LUMBAR MIN 4 VIEWS DOES NOT INC LUDE BENDING [id number] RESULTInterpreted by:JOSE Duran SPINECLINICAL STATEMENT: Status post lumbar fusion. Low back pain.TECHNIQUE: AP, flexion-extension, and neutral lateral views of the lumbar spine.COMPARISON: 07/27/2021.FINDINGS:Since the prior study, there has been no significant interval change. The patient is again noted to be status post lumbar fusion at L1-ilium. Bilateral pedicle screws with interconnecting rods appear intact and well aligned. Intervertebral disc spaces are present, the L3-L4 and L4-L5 disc spaces appear to project just beyond the ventral margins of the vertebral bodies, not significantly changed.Normal anatomic alignment is maintained. Normal vertebral body heights are preserved.IMPRESSION: Since 07/27/2021,No significant interval change. Status post lumbar fusion at L1-ilium, with stable postoperative changes, including slight ventral positioning of L3-L4 and L4-L5 disc spaces. Attention on follow- up is recommended.This document has been electronically signed by Julian Regan MD on 09/02/2021 1:55 PM Name Value Range Interpretation Code Description Data Sally rce(s) Supporting Document(s) ID Date Data Source [id number] 08/30/2021 03:43:48 PM EDT [facility] Name Value Range Interpretation Code Description Data Sally rce(s) Supporting Document(s) Progress Note [facility] [id number]/IMMigBWQsn9TvXKgfQCz8NXpfULEnD5CcEQM6tE7iVPP2KJhFErGgLoQoAYA3 lbm [file] MyEjH4NOGjBqFcIX9ZQn5ZAuP6WHH1pSYnBz7NTxAlTOZYUyTnTC0UNSp= ID Date Data Source [id number] 08/21/2021 05:30:00 PM EDT [facility] Name Value Range Interpretation Code Description Data Sally rce(s) Supporting Document(s) SARS coronavirus 2 RNA [Presence] in Res piratory specimen by SUREKHA with probe detection Not Detected [facility] This lab was ordered by [facility] and re ported by [facility]. ID Date Data Source [id number] 08/21/2021 01:30:00 PM EDT [facility] Name Value Range Interpretation Code Description Data Sally rce(s) Supporting Document(s) SARS-CoV-2 NEGATIVE [facility] This lab was ordered by [facility] and reported by [employer]. ID Date Data Source [id number] 08/01/2021 03:56:18 PM EDT [facility] Name Value Range Interpretation Code Description Data Sally rce(s) Supporting Document(s) Progress Note [facility] MXNGJj0vOuWGLzIl33/DIYoiYPUtj3SnGQntFEh6MZedSYTxI2FsLCN8iJ7bAFI3UOvPSyBaNjJxRVN8 m [file] ICAgICAgICAgICAgICAgICAgICAgICAgICAgICAgICAgICAgICAgICAgICAgICAgICAgICAgICAgICAg ICAgICAgICAgICANCiAgICAgICAgICAgICAgICAgICAgICAgICAgICAgICAgICAgICAgICAgICAgICAg ICAgICAgICAgICAgICAgICAgICAgICAgICAgICAgIC AgICAgICAgICAgICAgICAgICAgICANCiAgICAgICAgICAgICAgICAgICAgICAgICAgICAgICAgICAgIC AgICAgICAgICAgICAgICAgICAgICAgICAgICAgICAgICAgICAgICAgICAgICAgICAgICAgICAgICAgIC AgICANCiAgICAgICAgICAgICAgICAgICAgICAgICAg ICAgICAgICAgICAgICAgICAgICAgICAgICAgICAgICAgICAgICAgICAgICAgICAgICAgICAgICAgICAg ICAgICAgICAgICAgICANCiAgICAgICAgICAgICAgICAgICAgICAgICAgICAgICAgICAgICAgICAgICAg ICAgICAgICAgICAgICAgICAgICAgICAgICAgICAgIC AgICAgICAgICAgICAgICAgICAgICAgICANCiAgICAgICAgICAgICAgICAgICAgICAgICAgICAgICAgIC AgICAgICAgICAgICAgICAgICAgICAgICAgICAgICAgICAgICAgICAgICAgICAgICAgICAgICAgICAgIC AgICAgICANCiAgICAgICAgICAgICAgICAgICAgICAg ICAgICAgICAgICAgICAgICAgICAgICAgICAgICAgICAgICAgICAgICAgICAgICAgICAgICAgICAgICAg ICAgICAgICAgICAgICAgICANCiAgICAgICAgICAgICAgICAgICAgICAgICAgICAgICAgICAgICAgICAg ICAgICAgICAgICAgICAgICAgICAgICAgICAgICAgIC AgICAgICAgICAgICAgICAgICAgICAgICAgICANCiAgICAgICAgICAgICAgICAgICAgICAgICAgICAgIC AgICAgICAgICAgICAgICAgICAgICAgICAgICAgICAgICAgICAgICAgICAgICAgICAgICAgICAgICAgIC AgICAgICAgICANCiAgICAgICAgICAgICAgICAgICAg ICAgICAgICAgICAgICAgICAgICAgICAgICAgICAgICAgICAgICAgICAgICAgICAgICAgICAgICAgICAg ICAgICAgICAgICAgICAgICAgICANCjw/hKLnF4yedKRftmL9C0jtUf2BAu9ZLJ5ub8LuUJVySAkpbbBy AqqBCbYrWYNgPajPGdr8SKkdQB4AiVRyN4NsT3EzBM nlYX6RCNYeHOIkaDFiAQXjPQGvXiK8LQYuBSwpUH3OoUXdRHbbTHRqYBZzGxWeZNRtRC7GPLRqD128cm YqHn8YWj5TWdYwAI1iqn0EPywiGVWoAaqUEwz1QHzfFB1EgHLwqGMwRDJoDHJOTtLrW8dhw4XbKvjiKE WPZQztVK7Ne9CwwXOnDWe+Kw0GNK3rp9MtYOyrPIBi QM6foc5UOSfVOqOkU9XgaNzoIEIvg4yeEOMrIP2mhNJaJBG4LU4lgJPdLBxxNJUGiZ0zZZOTKOTypJE7 NqaaCsQeJBAeXBwkHJFCROaJDtMvH8Shr4OmErI5KDFzQeCvEWnfGOXmKmC7YO98eTvkIU7CLJLzNXNu JH79GGP1RJFhFe1JCj6NZgGqYB7adw8QJckfOOEeVi rGTwv6IBncYY5IsAPtH3PszELwy1jWWcGeL4XFYPU8CIYeBy4XMHGkMqSbAENoJDcnTQ8vOKJaAFQAsE phpnK9FD6AJU1fzeOpUU2FWfNpCi8hZb6IQcOdI9KtG4JmACBdMEIGXMfsZS8VBPryYK2nTQ5Vo1HYaC IloN5bux7CPGPbFTErWpoyfc1BCothA9C2eYviZHUk VlncSCNFKYrnCM7YAEQnAQY2ONPpDjCkCXJYFxZhB73lOB0NI9Xoi87fDjW4QMRjXnArYKxzYQ63zWgo kvCegHYtaXbaJE3WHf1+YIylbxIjXxrAIglkMFOVEvOoZkDMXrXdYJWpOJPjXKCcSqG4FiTsJu0QFFUu MDAwMDAxNyAwMDAwMCBuDQowMDAwMDIyNjEzIDAwMD XjNE9NZsHcUXOrYsPoDeQoOXOoGLUwyo6KKGEhCRZwARE8ZhQsARVbNEFaKSxnUOTnVNPcGrY3APFhYZ VmTU3QMnSwKJFjOQE4SMHaCGLwCONhru3GXTIaTFNaYRpdKkZpPOXkPDBcMLpkROHoUTK2TMLnXLUlZC LeFN5CPbQoBCWnXAG6JYxxVCVlUFAcdt3BHWBsTOSp LyZ1QJHsETJtYPZpXJqsKPShLCP5Rvh2GEUnIEKbOV0HSqBlZWObVUlcRoEjHJVnPHPsgv8ICXQpIVFf EvPsTsFqNPRcQIEfIIiuLPEwDZU7IwK4UHSpHDSwET7WWcCnOEVtYWjpGMMoQADiOKUdrq9YANIsJQDc VCA5NWZuMYYuXPCoTGkuINAmHEW9OGf0OTChGGEhUA 3VRdWwABVcGBj0XiarRIQtVCXfcl8CMLDcKJNwLIu2LWRlLGIvYUCcFJhvYANjHSVmBUE0BNSuWGPvKX 1XTjFcOTZoSiUxVIXlTYDnGZUicg5HXTEwEHXxIJC8VLLnIBGjEWUfDLdbNLVaXYShMpP7MXBiHGYsKI 9DPgQgHNIaGtJ5HURxCHQoORJvcu4JXIGeZFDcBzW8 CCFkWIQuZPViDDtuKCXyOGYjACL4RRLaVHOpFW5GLrBjPQTpSlU9KagaVKYiPTTtak0DJMKuRSLqPFMy FJPmQKFzKKIjRHluRZPtJZI7Kqj6DPVhNTWtTD3KVzOtLWwrTRXRCly5SWzrM7a2NWDiPE0ST0Zgw9Yz AkinGSZKWHaxJA9jzyIoQQEdEb8RW6mLPeriNOFaBI OoWEflXEOqGLobHET5DIZgLyLmIhLaQKRxNx9oKMWvZbV3BJS6TXG8QWX4N5U3WIU7MXXqAlNtAlReCg MlRfLfHA9PLg2PDlT7ZGF6uLJfRx7PDjJ8GmVHHjDdMO9PTAq= ID Date Data Source [id number] 08/01/2021 07:47:07 AM EDT [facility] XR SPINE LUMBAR 2-3 VIEWS [id number] RES ULTInterpreted by:JOSE Duran SPINECLINICAL STATEMENT: Status post lumbar fusion. Low back pain.TECHNIQUE: AP and neutral lateral views of the lumbar spine.COMPARISON: 05/31/2021.FINDINGS:Since the prior study, there has been interval hardware revision.The patient is status post lumbar fusion at L1-ilium. Bilateral pedicle screws with interconnecting rods appear intact and well aligned. Normal anatomic alignment is maintained. Normal vertebral body heights are preserved.The remaining intervertebral disc spaces appear unremarkable.IMPRESSION: Since 05/31/2021,Status post hardware revision with lumbar fusion at L1-ilium, with expected postoperative changes.This document has been electronically signed by Julian Regan MD on 08/01/2021 7:44 AM Name Value Range Interpretation Code Description Data Sally rce(s) Supporting Document(s) ID Date Data Source [id number] 07/27/2021 10:45:51 AM EDT [facility] Name Value Range Interpretation Code Description Data Sally rce(s) Supporting Document(s) Progress Note [facility] [id number]/NRTeeMOHsu2KdFSkbMOy5CQnpZSIjZ3YdIVJ8hX9tOGK6QCmOExJnHjRgSVQu lbm [file] [id number] ID Date Data Source [id number] 07/12/2021 04:35:00 PM EDT [facility] DATE OF EXAM: 1EXAM: LUMBAR SPI NE RADIOGRAPHS INDICATION: S/P SPINE SURGERY- SPECIFY COMPARISON: 06/01/2020 TECHNIQUE: Frontal and lateral views of the lumbar spine were obtained. FINDINGS: Status post multilevel laminectomy and fusion. Fusion construct with posterior paired rods and pedicle screws and intervertebral disc spacers extending from L1 to the iliac bones bilaterally. Anterior plate at S1. Hardware appears intact. Intervertebral spacers at L3-L4 and L4-L5 are located eccentrically in the anterior disc space, stable from 2019. No lucency about the hardware to suggest loosening. Anterolisthesis of L5 on S1 of 8 mm. A drain overlies the operative bed. Multilevel degenerative changes throughout the visualized thoracic and lumbar spine. Vertebral body heights are maintained. Cholecystectomy clips. IMPRESSION: Status post lumbar laminectomies and fusion from L1 to the bilateral iliac bones, as described. Professional interpretation performed at [facility] .End of diagnostic report for accession: [id number] Interpreted: Eve Houston MDTranscribed: 07/12/2021 04:30 PMSigned: 07/12/2021 04:35 PM Eve Houston MD -------- [facility] # [id number] [facility] # [id number] Name Value Range Interpretation Code Description Data Sally rce(s) Supporting Document(s) ID Date Data Source [id number] 07/12/2021 08:35:34 AM EDT [facility] Name Value Range Interpretation Code Description Data [facility] Supporting Document(s) SODIUM 142 mmol/L (136-145) [facility] POTASSIUM 4.3 mmol/L (3.6-5.2) [facility] CHLORIDE 107 mmol/L (100-108) [facility] CO2 28 mmol/L (22-31) [facility] ANION GAP 7 mmol/L (7-16) [facility] UREA NITROGEN 8 mg/dL (7-24) [facility] CREATININE 0.51 mg/dL (0.60-1.00) L [facility] BUN/CREAT RATIO 15.7 RATIO (10.0-20.0) [facility] GLUCOSE 100 mg/dL (70-99) H [facility] CALCIUM 8.0 mg/dL (8.4-10.2) L [facility] GFR >60 ml/min/1.73m2 (>59) [facility] GFR ( AMER) >60 ml/min/1.73m2 (>59) [facility] GFR INTERPRETATION [facility] --NORMAL KIDNEY FUNCTION OR MILD DISEASE - GFR >OR= 60CHRONIC KIDNEY DISEASE - GFR 15 - 59RENAL FAILURE - GFR <15 Est. GFR calculation based on the MDRDstudy equation, which assumes a steadystate for creatinine. Est. GFR should notbe used for medication dosing. ID Date Data Source [id number] 07/12/2021 08:15:04 AM EDT [facility] Name Value Range Interpretation Code Description Data Sally rce(s) Supporting Document(s) WBC 13.4 10*3/uL (4.1-11.0) H [facility] RBC 3.85 10*6/uL (4.00-5.40) L [facility] HGB 12.0 g/dL (12.0-16.0) [facility] HCT 37.0 % (36.0-47.0) [facility] MCV 96.1 fL (80.0-95.0) H [facility] MCH 31.2 pg (27.0-32.0) [facility] MCHC 32.5 g/dL (32.0-36.0) [facility] RDW 14.4 % (10.5-14.5) [facility] PLT 236 10*3/uL (150-450) [facility] MPV 9.4 fL (7.1-10.7) [facility] ID Date Data Source [id number] 07/12/2021 08:51:00 AM EDT [facility] [address] [id number] NAME: HESHAM JOHN OF : 1975REPORT: OPERATIONPATIENT NUMBER: [id number] STATUS: IPMEDICAL RECORD NUMBER: [id number] OF ADMISSION: 07/11/2021 DATE OF PROCEDURE: 07/11/2021REOPERATIVE DIAGNOSES: Adjacent segment failure, back pain,radiculopathy.POSTOPERATIVE DIAGNOSES: Adjacent segment failure, back pain,radiculopathy, 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, use of x- rayguidance.SURGEON: Colt Collins MDASSISTANT: MARCK ThomasROCEDURE: Anterior lumbar interbody fusion at L5-S1 with placement ofcage without corpectomy at L5-S1, anterior arthrodesis at L5-S1, placementof plates spanning L5-S1, posterior exploration of fusion, posteriorremoval of hardware with reinsertion of larger screws at bilateral L1 andbilateral L5, insertion of new screws at bilateral S1, insertion of iliacbolts bilaterally, use of allograft bone morsel, autograft bone local and autograft bone morsel at illiac crests for posterolateral arthrodesis L1 through S1 with new laminectomy completed at L5-S1 with bilateral redo hemilaminotomies and foraminotomies completed at L1-L2, L2-L3, L3-L4, and L4-L5, with again posterolateral arthrodesis at L1 through S1.INDICATIONS FOR SURGERY: This is a patient who is known to my practice.She had undergone a previous lateral series of fusions with posteriorinstrumentation and posterior decompression. She had substantial leg painand had been worked up and found with a very large disk herniation atL5-S1. She had a series of studies. She had a very limited MRI scan dueto her size and body habitus. We had discussed with the patient options ofcare. We discussed risks, benefits, and alternatives to the surgery. Wediscussed risk to include, but not limited to bleeding, infection, need forrepeat surgery, nerve or blood vessel injury, cardiovascular collapse,, malunion, nonunion, spinal fluid leak, bladder and bowelincontinence, persistent pain, worsening disability. She understood thisis a medical center representative but not inclusive list of risks. She agreed to proceedwith surgery.OPERATIVE REPORT IN DETAIL: The patient was brought to the operating roomon day of surgery. She underwent induction of anesthesia per theAnesthesia record. She was placed supine on a well-padded OR table. Shehad received perioperative antibiotics. We completed a time-out procedure.After site and side verification, I made a transverse incision above herpubis. I identified her peritoneal sac. I mobilized it medially andfollowed it down. She is a very obese woman. She has a body weight ofover 126 kg and the BMI well into the 40s. We ultimately had to use 200 mmlength abdominal retractor blades to hold back the peritoneal sac. Iidentif ied the left iliac artery and the left common iliac vein andprotected these and mobilized them to have access to L5-S1. I mobilizedthe bifurcation and placed retractors. This took fair amount of time dueto the incisional depth with multiple attempts to replace the retractors.When I finally isolated the segment, I made a annulotomy. I debrided thearea of the disk material at L5-S1 after confirming levels. The diskitself actually seemed to have been in very poor shape. It came out inpiece meal and the surface of S1 actually appeared to be somewhateburnated. I worked up to a series of larger and larger interbody deviceswith more and more lordosis. Finally, when I was satisfied, I compared andtapped in the 4-WEB cage that was filled with autograft and allograft boneas well as bone morphogenetic protein. It was a cage without corpectomy.I placed an anterior plate device spanning L5-S1 with the screw placed atS1. I removed retraction. There were no issues with regards to thevasculature and noted that there was a tiny hole in the peritoneum that wassuture repaired with no issue. The anterior rectus fascia was closed witha running loop PDS suture and skin was closed with interrupted Vicrylsuture. The patient was flipped prone with an OSI flip. She was preppedand draped in standard fashion. Midline incision was made. Meticuloushemostasis was maintained. Deep retractors were placed. I identified theold hardware. There was a paraspinal fluid collection that was present.It was evacuated and cultured. I removed the set caps to all of thehardware. I noted that the screws at L1 were loose and the screws at L5were loose. This constituted in my mind a nonunion. There was a positiveposteriorly based bone. Larger 8-mm screws were replaced at L1 and E1dmfvtiluhtq. I completed bilateral redo hemilaminotomies andforaminotomies. Again, I could not fully assess the patient's degree ofstenosis at this region due to the MRI scan. I widened up theforaminotomies, so that I could easily able to pass out a bent 3 Friendly.I had initially wanted to get an MRI of the patient prior. The patient hadmultiple trips to the emergency room due to dire pain, which is why weproceeded. With the revision decompression completed, I placed new C7bozzbs utilizing the starting spot, the inferior aspect of the L5-S1 facetjoint bilaterally and the first dorsal foramina. I placed in bilateral8-mm in di ameter screws. I then removed the posterior-superior iliacspines bilaterally. I utilized this as bone graft. All this bone wasplaced into the back table with screws placed into the sacrum bilaterallyat S1, and now screws placed into the bilateral ileum. Iliac bolts againwere placed, cannulated between the inner and outer tables. Large iliacbolts were placed with all set connectors. Rods were bent that would spanfrom L1 through the iliac bolts and into the sacrum. Trigger EMGstimulation was completed. There was no adverse threshold in rods orplates. The patient's overall alignment was tailored to try to make her asstraight as possible. All the set caps were torqued to creative writing english professor'sspecification. I then removed the dorsal lamina at L5-S1 afterdecompressing the exiting L5 nerve roots and traversing S1 nerve roots. Iidentified an extremely large disk herniation on the right side at L5-S1and removed it in piecemeal. DuraSeal, which is a dural barrier wasplaced. Bone grafting material to include local autograft, allograft,iliac crest bone graft, and what remained of the bone morphogenic proteinfrom the front part of the surgery was placed. Vancomycin powder wasplaced. A deep drain was placed and the wound was closed in layers.Placement of all of the bone grafting material and the hardware posteriorlyconstituted posterolateral fusion of the L5 through S1. I did find itmedically necessary to place the iliac bolts because of the patient's verylarge body habitus. In the interval time that I had seen the patient ayear ago till now, the patient actually had put on 20 kg worth of kentrell ght aswas identified by her being weighed this morning. I had discussed with heruse of iliac bolts prior to surgery. I did call the patient's familymembers to let them know that she was doing well.DICTATED BY: Colt Collins, MDDictated: 07/11/2021 19:28DT: 07/11/2021 22:55Job #: [id number]: [facility] computer generated reports are not confirmed orauthenticated unless they are signed by the providerElectronically Authenticated and Edited by:COLT COLLINS MD On 07/12/2021 08:51 AM EDT Name Value Range Interpretation Code Description Data Sally rce(s) Supporting Document(s) ID Date Data Source [id number] 07/16/2021 11:55:16 AM EDT [facility] SPECIMEN DESCRIPTION SITE PARASPINAL FLUIDSPECIAL REQUESTS NONECULTURE RESULTS NO ANAEROBES ISOLATED AFTER 5 DAYSREPORT STATUS FINAL 07/16/2021 Name Value Range Interpretation Code Description Data Sally rce(s) Supporting Document(s) ID Date Data Source [id number] 07/16/2021 11:54:56 AM EDT [facility] SPECIMEN DESCRIPTION SITE PARASPINAL FLUIDSPECIAL REQUESTS NONEGRAM STAIN FEW (<10/LPF) WHITE BLOOD CELLS NO BACTERIACULTURE RESULTS NO GROWTH 5 DAYSREPORT STATUS FINAL 07/16/2021 Name Value Range Interpretation Code Description Data Sally rce(s) Supporting Document(s) ID Date Data Source [id number] 07/15/2021 02:01:56 AM EDT [facility] PATIENT ABO/Rh A POSITIVEANT IBODY SCREEN NEGATIVESPEC EXP DATE 07/14/2021TESTING SITE PERFORMED AT [address] [place], [place] [address]BLOOD BANK COMMENT BLOOD TYPE CONFIRMED.UNIT NUMBER [id number] COMPONENT TYPE LEUKOPOOR RED CELLSUNIT DIVISION 00STATUS OF UNIT REL FROM ALLOCTRANSFUSION STATUS OK TO TRANSFUSECROSSMATCH RESULT COMPATIBLE Name Value Range Interpretation Code Description Data Sally rce(s) Supporting Document(s) ID Date Data Source [id number] 07/11/2021 07:48:18 AM EDT [facility] Name Value Range Interpretation Code Description Data Sally rce(s) Supporting Document(s) WBC 9.7 10*3/uL (4.1-11.0) [facility] [place] RBC 4.62 10*6/uL (4.00-5.40) [facility] HGB 14.8 g/dL (12.0-16.0) [facility] HCT 44.4 % (36.0-47.0) [facility] MCV 96.2 fL (80.0-95.0) H [facility] MCH 32.1 pg (27.0-32.0) H [facility] MCHC 33.4 g/dL (32.0-36.0) [facility] RDW 14.2 % (10.5-14.5) [facility] PLT 236 10*3/uL (150-450) [facility] [facility] MPV 8.5 fL (7.1-10.7) [facility] ID Date Data Source [id number] 07/11/2021 11:57:10 AM EDT [facility] Name Value Range Interpretation Code Description Data Sally rce(s) Supporting Document(s) SPECIMEN DESCRIPTION [facility] STAPH SCREEN RESULTS (ONEGSA) A [facility] COMMENT [facility] GENE TO DETECT STAPH AUREUS. (2) RT-P CR WAS PERFORMED FOR THE mecA AND [employer] GENES TO DETECT METHICILLIN RESISTANCE IN STAPH AUREUS. ID Date Data Source [id number] 07/06/2021 12:15:00 PM EDT [facility] Name Value Range Interpretation Code Description Data Sally rce(s) Supporting Document(s) SARS-CoV-2 (COVID-19) RNA [Presence] in Respiratory specimen by SUREKHA with probe detection Not Detected [facility] This lab was ordered by [facility] and reported by [employer]. ID Date Data Source [id number] 06/28/2021 07:47:08 PM EDT [facility] Name Value Range Interpretation Code Description Data Sally rce(s) Supporting Document(s) SODIUM 140 mmol/L (136-145) [facility] POTASSIUM 4.4 mmol/L (3.6-5.2) [facility] CHLORIDE 109 mmol/L (100-108) H [facility] CO2 25 mmol/L (22-31) [facility] ANION GAP 6 mmol/L (7-16) L [facility] UREA NITROGEN 10 mg/dL (7-24) [facility] CREATININE 0.60 mg/dL (0.60-1.00) [facility] BUN/CREAT RATIO 16.7 RATIO (10.0-20.0) [facility] GLUCOSE 100 mg/dL (70-99) H [facility] CALCIUM 8.4 mg/dL (8.4-10.2) [facility] GFR >60 ml/min/1.73m2 (>59) [facility] GFR ( AMER) >60 ml/min/1.73m2 (>59) [facility] GFR INTERPRETATION [facility] --NORMAL KIDNEY FUNCTION OR MILD DISEASE - GFR >OR= 60CHRONIC KIDNEY DISEASE - GFR 15 - 59RENAL FAILURE - GFR <15 Est. GFR calculation based on the MDRDstudy equation, which assumes a steadystate for creatinine. Est. GFR should notbe used for medication dosing. ID Date Data Source [id number] 06/28/2021 07:09:07 PM EDT [facility] Name Value Range Interpretation Code Description Data Sally rce(s) Supporting Document(s) WBC 11.9 10*3/uL (4.1-11.0) H [facility] RBC 5.47 10*6/uL (4.00-5.40) H [facility] HGB 17.1 g/dL (12.0-16.0) H [facility] HCT 51.9 % (36.0-47.0) H [facility] MCV 94.9 fL (80.0-95.0) [facility] MCH 31.3 pg (27.0-32.0) [facility] MCHC 33.0 g/dL (32.0-36.0) [facility] RDW 14.0 % (10.5-14.5) [facility] PLT 275 10*3/uL (150-450) [facility] MPV 9.2 fL (7.1-10.7) [facility] NEUT % 64.7 % (35.0-75.0) [facility] LYMPH % 21.0 % (16.0-52.0) [facility] MONO % 8.7 % (0.0-8.0) H [facility] EOS % 4.2 % (0.0-5.0) [facility] BASO % 1.4 % (0.0-4.0) [facility] NEUT # 7.7 10*3/uL (1.8-7.7) [facility] LYMPH # 2.5 10*3/uL (1.2-4.8) [facility] MONO # 1.0 10*3/uL (0.0-0.8) H [facility] Eosinophils [#/volume] in Blood by Automated count 0.5 10*3/uL (0.0-0 .5) [facility] BASO # 0.2 10*3/uL (0.0-0.2) [facility] ID Date Data Source [id number] 06/19/2021 02:57:18 PM EDT [facility] Name Value Range Interpretation Code Description Data Sally rce(s) Supporting Document(s) Progress Note [facility] AQWUCj1mVgSWIqIm64/PTDwrXBLxn2NaUGpcACx7EJgzSQTxP0BeWJP0vX6mZSB8IXdWGpReDzLfBaA4 lbm [file] ORdkWkIPz4/BoC2SM/8UP/z+control operator flow coat/K7cAvJxhY5gkSJm [file] ICAgICAgICAgICAgICAgICAgICAgICAgICAgICAgICAgICAgICAgICAgICAgICAgICAgICAgICAgICAg PIDfWMWaVYQsSYVoIJOlAIKsTIRsWNMjPZ7FCEKvMM AgICAgICAgICAgICAgICAgICAgICAgICAgICAgICAgICAgICAgICAgICAgICAgICAgICAgICAgICAgIC SnNLYxLXCzTHCuGWFhCYJiUUOeVIWuFQKoKXHoBGYzTGEgSQ7KPREzCDAjZMRcPLCjVWDyGCQfBHIyDO AgICAgICAgICAgICAgICAgICAgICAgICAgICAgICAg QYOtBHQoMBYjINEaOFMeMEAoIWKwUKYlXSWrMTAxMBMvJFWxLIOxFVMbXOMvZN6VANEdOJFuIAJtVJAg ICAgICAgICAgICAgICAgICAgICAgICAgICAgICAgICAgICAgICAgICAgICAgICAgICAgICAgICAgICAg ONWrQRAlBOGzKPEgMAElTUFoXAOkSGSxQOJrVA3NWM AgICAgICAgICAgICAgICAgICAgICAgICAgICAgICAgICAgICAgICAgICAgICAgICAgICAgICAgICAgIC KaIHWpESZnXDUqTZEqYTJlDGXkIXTiMDXiIXOuENTcMWHfVSKfJS7LMWUkAYQqMXBrHATdHWEmYAXbRC AgICAgICAgICAgICAgICAgICAgICAgICAgICAgICAg OAFbEOQhVLFsMDAoHJXnXAMuHWVhIECrVQLjRBBbVSPjNSZaZEFxTLQwJOVbHOAeWI8CATXiRKRkFDHp ICAgICAgICAgICAgICAgICAgICAgICAgICAgICAgICAgICAgICAgICAgICAgICAgICAgICAgICAgICAg ICAgICAgICAgICAgICAgICAgICAgICAgICAgICAgIA 0KICAgICAgICAgICAgICAgICAgICAgICAgICAgICAgICAgICAgICAgICAgICAgICAgICAgICAgICAgIC PoLXYkATJkJKSeNQFdSGMgUEIfLJVwDOZfZFGyMGFaCQAiZSOsUAYlDI2OWYBeLVOmCMYmVSNuDZMsBW AgICAgICAgICAgICAgICAgICAgICAgICAgICAgICAg AOEpWSXtMVQeBBEwWIExBMJyCGFiIKKrWMWfDPVcXZLdGATeLAXnVSDvLTAfXOVgHRPpUB9XOUQhLZHh ICAgICAgICAgICAgICAgICAgICAgICAgICAgICAgICAgICAgICAgICAgICAgICAgICAgICAgICAgICAg ICAgICAgICAgICAgICAgICAgICAgICAgICAgICAgIC EbNQ0HLI69vRVzk0U5PKDqZD7nrvo/Qy1JIDnwizHhiWGwQJ1YCmRjWC3hpr8IRuUlCT0hrt0TBJfNCn XgN0Z0hPTwCCMpSANTDtTeQ40dVPgqZw71XVosDWOxGzPaUAj4Lm8ZMlGeK3luTNWoTwQ4GFLfKaN6IW XpVcD1VKCkYuJyIWVoVLHkIUYgNGMRDT7MPwQtF1Ys mB60SDMWYq0+RZxpkkDmQpxBTmClQSCvv2RfXKb2KH3RLGOiBypuv1BoQxRqQINEOFeqSR5ZHSW0PWG1 SHOrPz0VKYBfK918bwGpSP2OHf9GCvOlLG2szl0HUdPvANDxBtrXGee8ONcwQF0NuFHuBHoPan7alwQv ykXXw4KlomKmdAPRpCqviAFkKJJxIBT8SIpcIYhfQP KaBIUdNh7rLe6gVMRaGQLeAbLpXTVNFT3ZMVRhKTRdgOHtHKXpEKJBBC7RJHvaPQA1QLLxmkRqkJCxXL asUG5VTAKhpxPpPyCoZCMGWJc+Pb3JXR1yy3ItSPayBSIqPF7cyj9UKDrITaXxC0V8mLYaH4M7VMwyTh 6TWDZaCGHlYmWrFWKCVWswBE3JAB8samR2AD2ZkKAu JWWaVHDmcXEgNAi7X70mlGVoAWzpYX2DLBG+Damon+Xz9JXXLpMHEfDNEtAlKrZSNGZaYhG8KeJ1EPi1Zx N3DlHU17yThyvaYoKHoqDI8JNW1ySHTpLDFEYW6HhGVkjU7geqJrVuUkOMUGKiIjM33cbEIrHXEpCWBe ALYeBg7XPTFqH8KguxHcrQohjoFkTWGaVPVWKV7MYM gkqqRusHYthCfyXI96eEfhDM5CJq0GBrLtIU3avg2MsRZnUk7VGSErEq4PVYRnOQOrVLSxKJI0KHRzQs JrWLyoRCEoXEZqVOK6LTBtGQMiEE7VNeIhTQEcMOUkFPliNELzGYBoyr8RURWfQPB3Xxx7SWVhZZGtQN ObRVrdBATtCJCiLDY6JNPtLLKtRH3LXlJsIPKdJZUv RPtePZCmIMVqnz7PJMKzYTIoULK4YdAjYNBhSPDgJIeoQEIbRVF1CeX3XEVyJEDmJY5TKaNwIPOtCVd5 GrTzDGVsKYRtpf2PRFAvKBAmHGf4YEUxZTIzASCgAJwvBLKgDVYwQWAkHFSaHJYzKM1HBpBvDRQpOSX0 GNitNZLnVHQxjh0VFWAbQLMtWiHmBPUtBMXnVSHoVO adMPFtWZB6IMT6EDZjNVJlYJ0LJxAfEQDqPGpuQvSmSHHgFPZfme5UPRPrATFzPsp8OqAiAHNuONPyTP wjQAHnMGI2AUqgXGRxPOOsCD6SHuFuPCJbRQweLqHrUVKpAUVqwa6VYAPrXWBdPWZkRcIcJLZaUBKmCE baJWZdJBU7EZI7QPLpHFEsET8HWpWoMCOxXTs1DgPk VBHiDPJhch9VAVPtPVW9OBXqKRLqHOUdAOMrGNzhASQtKDZzYGx8LWYuRMYfBG7GQdXtOURxSSS2CKRn VGEbWWBagn9YCDPcCZK4WrFaSJVaERRdCZTlUDcdEPKkOKAzKFtxJNHdGIBuGX3HOjObFBHxRRG6UvRz NDLrJNTagz2YWZZmPTM8UsVnPmLgSGVhYFMvJTsmSX DlHZKfGiwbDFUdGQIxJY3XQmInPIZiSSX5BtQqLXLaSOVumq0ULVKgKKV5TFptFmDnJINiXMMdJCfbIY KyTMD3ZDl8AVRyGYZvSX9RGpBcUJHyEWV5JiOvAZVnOXKoqq8AUEPfUWT4Hsp5MSNtUYGeYSCaHKdoOZ OxBNA4AUW4OGSzCXMmYG1DPaHjFUBmKWpuBKueKGSm SAYeyj5PkPJhwRuabf3ADQtIIw4FaEocVPY7TNvlLz0hmNUzUNGkXAQLBe8JtxFmMZEmCEVEGKtaTUOs RRZ9A8MrTOuwYNUxCMYbLUm2Osu7Thj9FCDmVyF5FXWwHnR4UNu9OVN9NPQhWgV4DIKiWAgdZEEpIaK5 LuWiFFL2KKG+LI4eVFn+Oc8Nw8AzjjQ3qfZyJGn1BeS1ZS7IMKJWK7HHLb== ID Date Data Source [id number] 06/01/2021 07:07:24 AM EDT [facility] XR SPINE LUMBAR MIN 4 VIEWS DOES NOT INC LUDE BENDING [id number] RESULTInterpreted by:Julian Regan MDHON[facility] SPINECLINICAL STATEMENT: Status post lumbar fusion. Low back pain.TECHNIQUE: AP, flexion-extension, and neutral lateral views of the lumbar spine.COMPARISON: 03/14/2021.FINDINGS:Since the prior study, there has been no significant interval change. The patient is again noted to be status post lumbar fusion at L1-L5. Bilateral pedicle screws with interconnecting rods appear intact and well aligned. Normal anatomic alignment is maintained. Normal vertebral body heights are preserved.The rem aining intervertebral disc spaces appear unremarkable.IMPRESSION: Since 03/14/2021,No significant interval change. Status post lumbar fusion at L1-L5, with stable postoperative changes.This document has been electronically signed by Julian Regan MD on 06/01/2021 7:05 AM Name Value Range Interpretation Code Description Data Sally rce(s) Supporting Document(s) ID Date Data Source [id number] 06/01/2021 12:00:00 AM EDT [facility] ([facility]) Name Value Range Interpretation Code Description Data Sally rce(s) Supporting Document(s) SARS-CoV-2 (COVID-19) RNA [Presence] in Respiratory specimen by SUREKHA with probe detection negative negative Sars-cov-2 [facility] ([facility]) ID Date Data Source [id number] 06/01/2021 12:00:00 AM EDT [facility] ([facility]) Name Value Range Interpretation Code Description Data Sally rce(s) Supporting Document(s) ID Date Data Source [id number] 06/01/2021 12:00:00 AM EDT [facility] Name Value Range Interpretation Code Description Data Sally rce(s) Supporting Document(s) SARS-CoV-2 NEGATIVE [facility] This lab was ordered by [facility] and reported by [employer]. ID Date Data Source [id number] 06/01/2021 12:00:00 AM EDT [facility] ([facility]) Name Value Range Interpretation Code Description Data Sally rce(s) Supporting Document(s) SARS-CoV-2 (COVID-19) RNA [Presence] in Respiratory specimen by SUREKHA with probe detection negative negative Sars-cov-2 [facility] ([facility]) ID Date Data Source [id number] 06/01/2021 12:00:00 AM EDT [facility] ([facility]) Name Value Range Interpretation Code Description Data Sally rce(s) Supporting Document(s) ID Date Data Source [id number] 05/31/2021 11:07:02 AM EDT [facility] Name Value Range Interpretation Code Description Data Sally rce(s) Supporting Document(s) Progress Note [facility] ZLPBSj3nWzKMVrLx71/YJHprDGQlf7CwXJrcEKy2LNxmTTWoO0GbMAA1fL3oKIB9FJxPXtKlKiDzSrL5 lbm [file] ICAgICAgICAgICAgICAgICAgICAgICAgICAgICAgIC AgICAgICAgICAgICAgICAgICAgICAgICAgICAgICAgICAgICAgICAgICAgICAgICAgICAgICAgICAgIC NaZJRwLK4ENAEsETFhYRDbCTYvQLPkPPYcURLsHZVqTPMsVHIsDCOoHJCaMQNoIMHhWAXgNBYcEOYpID AgICAgICAgICAgICAgICAgICAgICAgICAgICAgICAg ADTaVQMqWFPzGOWlLGPfLM1TAOIcLEZhQBHxBVIyEEMaVLClZRDlYJTqHHIdXSFrJTScPOHeEBLaGWTg KMNnJSNrIJWhVKPlCJWdUPWhTKIfJVKlFRSlEMNtKZIzEMTvVZXqAIZbZNQkOJBuKCYrHNJhEQFmFI6L ICAgICAgICAgICAgICAgICAgICAgICAgICAgICAgIC AgICAgICAgICAgICAgICAgICAgICAgICAgICAgICAgICAgICAgICAgICAgICAgICAgICAgICAgICAgIC BmKBZiTUFdAJ1ESSQkWHFdDGZnHBKwNJJeLCCuIMOsYXJrUUAnJSAtQZYkMNOjLLXiOBMhBYQqTPNuKC AgICAgICAgICAgICAgICAgICAgICAgICAgICAgICAg IAFqPBDtGTDdPHGmNISoKXYmSX6PASQcDHYpRTHjYVClEBUmFBHxKRQhNWAqFLCjTAUsNCThGCKuCJNu ICAgICAgICAgICAgICAgICAgICAgICAgICAgICAgICAgICAgICAgICAgICAgICAgICAgICAgICAgICAg DR6XZNTaWWZuWHRzKTKdGLLdTPZlLUVwHKTlIGHeFB AgICAgICAgICAgICAgICAgICAgICAgICAgICAgICAgICAgICAgICAgICAgICAgICAgICAgICAgICAgIC LcGJHdZUZsFJBmMB9OYFWnILBzPEKrTXVkZDQePPZkKBBlIPUnQUDlTKYuFBVvDOVbZGNxFNYbRQFiNB AgICAgICAgICAgICAgICAgICAgICAgICAgICAgICAg AWNjZWIcDJWxJEXdGJThXSIiCQJnKV9DRNWnZVRjICYcCMUbBLBrGNFwIBLnHDVhGJFiIUHyVQNuCCNb ICAgICAgICAgICAgICAgICAgICAgICAgICAgICAgICAgICAgICAgICAgICAgICAgICAgICAgICAgICAg ELUrDM7MXF80mHLlf2F8PMMhRN0kcwo/Rm7GLLusbo YezDXmVJ8QToLpKO6tjn5YWfNcPF8xnd9JBVzPDiQoR7T4qEZpCRFfMBXSWeEeT71sNPzuPo20GYzgTS DyHiPbYEf1Jv5MCuXfD8ccCSNkCzD3VHCvKmM9VKNoKtOsTHulRC6Lg0CwmANsFJx+Ey4IVI3oe3NoLE oiFdLgGR2zse3YESlRUwFsH1FbalQ1ZVQpQYCzMu6N WFCdFREcmPQkMsJeBBKIAbOkF4XkaQ74IYKZVf0+RFdxteGuOkxGSsGiINMha4GhAWy5ED9EMKLcSMf9 kYJjQMRvT1Gtq1LdGo91PSTxOucvZQH9kMjpzgBNPJIfa1plHB3VKCS0KSxuZO7nUGBoSOIrGqS6ZADL HT3YQCXgMSCknULmGSCnNKRJXY0TSMvwSDL1VFBqox QzoSUqDFqlZZ3FHREqeaPoLnUnSIHEUTe+Sl3UOR4th1JpRFloQYKxUI7rnm6YYHgDOcQeC8X7yJDnF6 K9PWhpIk7ROTFyCMBiApMoBYUXYBkeFQ0LPW6xrrV8GJ3VfYVgMXBoYDFelHKaLJi5V95boVHbPDdqQT 0KICA+Damon+Qv6AUBEpGGBoTKHnTvYjMLGCJxXuL8Tt C3MSq4BqH1EnXY49zLqpfsMvVPnbTS1UWA5iAUJxRZJYVT1NnVVqcC3oraJcZmBnNQLHKmYjX57jlHBe QBAiTEXoTGDcPz7QIBJnK2UqljWscRozbqJoOJNoYENUHZ8ENFrpecAitTHawKrbOS23hTqpGL9CJl1W YmPeWQ4cmn3OtCEnLf2KJLAsKU9ERNBgKCQeWKMqJU W0XPMdAzVzOPheTHPcOIPaANR9JDBtOEQvZY6UPuSsPWVlAxb7CCMzTOTfAUAshy4ZUBNeWOVeWOS4VI PjESCvSEAvSYsgJINhWTLkAIJ4QBJrOZFfDI3DSeBwLVNrQLL0PpNyRKUqPAZfaw9CRGYfKWKgZzimBx ElZEGcTNCtPYigDUOrDXC2HgZyGGHhGAPmZT7WJqEy EUQxCKZ3MfUlPBUdSQEntj2ETXLvBPZhUbm9AsLsVUImNGLgMAtqWXBwQNS5XAr1PMVaCVChFJ5LEfLt LQLwINlwZhWaNFBuKEUpnl4EVRFrYKVrFKFoXYVbMADxNYEfIBsuNSZsTIL3VHNyOYNoEFOmUL9HIuGq LTWrBHd1ENctOZMjUIEuyp3WLLHgCUPzTHX7TVTqEE BsNFLuTSbbJSMhLJSxXlk3IQFrSKYvJL4ZGiEuEGZkHbU7BHVjMVRsXPQsax5FVCNjRGEnEHteFsUjPX UiHRYdEWanVSSmMKVwJZa0HKTzZIYrIP7UHcDiJGPaPgC7PgLkFVVsEDIgxo4DJHRmENDhXaOfVKMrMI DsBKUhXYoeCCSgKPIfEsr3SGQuELJoWT5RDgLuQPXg SqxtCQKcHUKuMMNocj9UFNFzXRHqJaQ4XlGkNYOrFICyMRebOQJvEJR3NkyhSBXdESEvOQ0WKiYbQCJw Tdd1OljbKABnOEHjwu9BJHTiEGRdVPL2HCZzDQCwASTdKIahHQTjOQD1WdbsIQDmQCAiLT2GZrWtRSAa Bgw5YjXnOCRuODOziu1MZWWxMDIySXN5BZHrBGHlXQ JkOIoyKSAfOQJ1BGR8AXDjERZhZO7CYnUpRCQwFxH4HqLsLJLmNYSdxg0QKJPeMYEuDME5QeMeQRPgEW CdDOvhMQZoBYZtDoksHNZhRCOfFI2DQpFpOZezXFCIEhb9VJuwD5g8GYOkJB1JX6Lie9NmKfEjEISZYK kuFN3cdfFaSIUnEe6JR9jRFot9Buc0LBFoPyWqXWG6 UeB9GxL0VnQvRqhkHQaiVIRaVX6pAJh1UVXaRyMfAGN5Gei8VkGkFSWrNKZuSgP0M6JcPGE7RkGfIK6V Jg8EFeH5QRF6rMQpIv0YJrVbCdCZFiXkAN5FOHp= ID Date Data Source [id number] 03/26/2021 12:00:00 AM EDT [facility] ([facility]) Name Value Range Interpretation Code Description Data Sally rce(s) Supporting Document(s) SARS-CoV-2 (COVID-19) RNA [Presence] in Respiratory specimen by SUREKHA with probe detection negative negative Sars-cov-2 [facility] ([facility]) ID Date Data Source [id number] 03/26/2021 12:00:00 AM EDT [facility] ([facility]) Name Value Range Interpretation Code Description Data Sally rce(s) Supporting Document(s) ID Date Data Source [id number] 03/26/2021 12:00:00 AM EDT [facility] ([facility]) Name Value Range Interpretation Code Description Data Sally rce(s) Supporting Document(s) SARS-CoV-2 (COVID-19) RNA [Presence] in Respiratory specimen by SUREKHA with probe detection negative negative Sars-cov-2 [facility] ([facility]) ID Date Data Source [id number] 03/26/2021 12:00:00 AM EDT [facility] ([facility]) Name Value Range Interpretation Code Description Data Sally rce(s) Supporting Document(s) ID Date Data Source [id number] 03/26/2021 12:00:00 AM EDT [facility] ([facility]) Name Value Range Interpretation Code Description Data Sally rce(s) Supporting Document(s) SARS-CoV-2 (COVID-19) RNA [Presence] in Respiratory specimen by SUREKHA with probe detection negative negative Sars-cov-2 [facility] ([facility]) ID Date Data Source [id number] 03/26/2021 12:00:00 AM EDT [facility] ([facility]) Name Value Range Interpretation Code Description Data Sally rce(s) Supporting Document(s) ID Date Data Source [id number] 03/26/2021 12:00:00 AM EDT [facility] ([facility]) Name Value Range Interpretation Code Description Data Sally rce(s) Supporting Document(s) SARS-CoV-2 (COVID-19) RNA [Presence] in Respiratory specimen by SUREKHA with probe detection negative negative Sars-cov-2 [facility] ([facility]) ID Date Data Source [id number] 03/26/2021 12:00:00 AM EDT [facility] ([facility]) Name Value Range Interpretation Code Description Data Sally rce(s) Supporting Document(s) ID Date Data Source [id number] 03/26/2021 12:00:00 AM EDT [facility] ([facility]) Name Value Range Interpretation Code Description Data Sally rce(s) Supporting Document(s) SARS-CoV-2 (COVID-19) RNA [Presence] in Respiratory specimen by SUREKHA with probe detection negative negative Sars-cov-2 [facility] ([facility]) ID Date Data Source [id number] 03/26/2021 12:00:00 AM EDT [facility] ([facility]) Name Value Range Interpretation Code Description Data Sally rce(s) Supporting Document(s) ID Date Data Source [id number] 03/26/2021 12:00:00 AM EDT [facility] Name Value Range Interpretation Code Description Data Sally rce(s) Supporting Document(s) SARS-CoV-2 NEGATIVE [facility] This lab was ordered by [facility] and reported by [employer]. ID Date Data Source [id number] 03/26/2021 12:00:00 AM EDT [facility] ([facility]) Name Value Range Interpretation Code Description Data Sally rce(s) Supporting Document(s) SARS-CoV-2 (COVID-19) RNA [Presence] in Respiratory specimen by SUREKHA with probe detection negative negative Sars-cov-2 [facility] ([facility]) ID Date Data Source [id number] 03/26/2021 12:00:00 AM EDT [facility] ([facility]) Name Value Range Interpretation Code Description Data Sally rce(s) Supporting Document(s) ID Date Data Source [id number] 03/15/2021 07:41:26 AM EDT [facility] XR SPINE LUMBAR 4-MORE VIEWS [id number] RESULTInterpreted by:Julian Regan MDH[facility] SPINECLINICAL STATEMENT: Status post lumbar fusion. Low back pain.TECHNIQUE: AP, flexion-extension, and neutral lateral views of the lumbar spine.COMPARISON: 08/24/2020.FINDINGS:Since the prior study, there has been no significant interval change. The patient is again noted to be status post laminectomy and fusion at L1-L5. Bilateral pedicle screws with interconnecting rods appear intact and well aligned. Normal anatomic alignment is maintained. Normal vertebral body heights are preserved.The remaining interv ertebral disc spaces appear unremarkable.IMPRESSION: Since 08/24/2020,No significant interval change. Status post lumbar fusion at L1-L5, with stable postoperative changes.This document has been electronically signed by Julian Regan MD on 03/15/2021 7:39 AM Name Value Range Interpretation Code Description Data Sally rce(s) Supporting Document(s) ID Date Data Source [id number] 03/14/2021 11:17:19 AM EDT [facility] Name Value Range Interpretation Code Description Data Sally rce(s) Supporting Document(s) Progress Note [facility] XSGSVd3bNuUCXqKr76/HWOkrFSNbb3ElDMchEGw0GWufBAIeC6ArRQC8uK6jBGW5OClYOrBgRfVuGPMi lbm [file] ICAgICAgICAgICAgICAgICAgICAgICAgICAgICAgIC AgICAgICAgICAgICAgICAgICAgICAgICAgICAgICAgICAgICAgICAgICAgICAgICAgICAgDQogICAgIC AgICAgICAgICAgICAgICAgICAgICAgICAgICAgICAgICAgICAgICAgICAgICAgICAgICAgICAgICAgIC AgICAgICAgICAgICAgICAgICAgICAgICAgICAgICAg ICAgDQogICAgICAgICAgICAgICAgICAgICAgICAgICAgICAgICAgICAgICAgICAgICAgICAgICAgICAg ICAgICAgICAgICAgICAgICAgICAgICAgICAgICAgICAgICAgICAgICAgICAgDQogICAgICAgICAgICAg ICAgICAgICAgICAgICAgICAgICAgICAgICAgICAgIC AgICAgICAgICAgICAgICAgICAgICAgICAgICAgICAgICAgICAgICAgICAgICAgICAgICAgICAgDQogIC AgICAgICAgICAgICAgICAgICAgICAgICAgICAgICAgICAgICAgICAgICAgICAgICAgICAgICAgICAgIC AgICAgICAgICAgICAgICAgICAgICAgICAgICAgICAg ICAgICAgDQogICAgICAgICAgICAgICAgICAgICAgICAgICAgICAgICAgICAgICAgICAgICAgICAgICAg ICAgICAgICAgICAgICAgICAgICAgICAgICAgICAgICAgICAgICAgICAgICAgICAgDQogICAgICAgICAg ICAgICAgICAgICAgICAgICAgICAgICAgICAgICAgIC AgICAgICAgICAgICAgICAgICAgICAgICAgICAgICAgICAgICAgICAgICAgICAgICAgICAgICAgICAgDQ ogICAgICAgICAgICAgICAgICAgICAgICAgICAgICAgICAgICAgICAgICAgICAgICAgICAgICAgICAgIC AgICAgICAgICAgICAgICAgICAgICAgICAgICAgICAg ICAgICAgICAgDQogICAgICAgICAgICAgICAgICAgICAgICAgICAgICAgICAgICAgICAgICAgICAgICAg ICAgICAgICAgICAgICAgICAgICAgICAgICAgICAgICAgICAgICAgICAgICAgICAgICAgDQogICAgICAg ICAgICAgICAgICAgICAgICAgICAgICAgICAgICAgIC AgICAgICAgICAgICAgICAgICAgICAgICAgICAgICAgICAgICAgICAgICAgICAgICAgICAgICAgICAgIC FcIPk5Q3lzGNDoEUGlFM2zBLx3Zy7+IJsIInQcNAW5bvBugN8SCQ2lt0RnULefVDOyz7ZsMUe1DH7PDF RtHRujFO5XZItyvr5RUYQgEIKkcPXVj5jcCtQaZIY3 KPDcHwrpHS9IRREmR2eegsSpBXHuGGWNSQzqIEZXRO9ERpZdF9MiuV20BBCHAc7+DQplbmRvYmoNCjM1 XQDmq1XrOAu9MI2RZKUgVhttg4MhNjSkSDKLAVwrAL0JXHO2SJU3AVRhCa2TXMVxJ533iiIzNX8UOh2P EmDkKC2wbd6EHfNxPZKrSceETax7AMtbGI8UwTMlXJ xNfv9btqHvkdMRa2MwoxPkcLALNZO2aAO1KL0iHXhtzEtxUhGaQODrZT6wDV1lCISkOPQuVkJ0SVDXEI 4XAWYqUSRspSYkXHNcMJVZWL2IBIjdJIA8LGKemkSclGNzRXohCS7IAXTwfiWjUtJqLETOCTg+Pg0KZW 9fd3IjQPwoIlGxOW1osn4YUSqIGuNrI2B9vAQfT0J9 STvjUt4KUHUhJTUyDoEfZRYLIOgiXT9QWL4cmlB0AJ7IeSArRPCfTYSdlAXfESf9N80mlSGvYKduMD7Q ICA+Damon+Jc7GUCQmDTNxHWCcUjNrGGCHDhKlM4NvH2SHv6PpS5LgIX35aYklwrXzIXffRF1XRT3jBMPu WVAGQP1XqLJlwM7teuOtSVFqPGODKbYbL26paDQzEN CzGLG3CZPnEg4UFDRzH2AgwiGpjPvnfsQdXYTzOXFZQL3TSFblaaMbsIWenWoaOG06tRtyHY0ISa6ZNw KqSJ1qmv5CtNWqNi6XYRHyGW7SHDWzSYRnYGRgJVP5YHFtDiRgYAjwLYVmZAKbKQT6BSHmYIDnIM5DYe KiVWXrXjN6UBCaSFOdSFCyyy9SGZXfBRGqQmG6OZRo WPKpSDJhJBjlLUIlVTOrHCP0AAOxGJRfDS9WHbYuYZJpNUV4XFTvSXNxUHTzzl2JSUUnRGAiMrb1DDUv EGCyAZDjQTlfBHYmGYB1WsO2TXJjGUKcLI2XHyEdITIxJMI7SaooOANvMMRtqu0SBONmWDRlZuZ1VaCt EZNeFLEnLKnbHORnLMT6LnpmAOWhOXAzMP4EHhJcTQ TxWLy9VuQkPTUuHUCool8CIWVcHMRcKXilZuLsJNOsDEDzKGhcVFNxSGY0ZLV4ILSzYXUqLP6HCtUoLQ VhYQghAMUcOGNjZUKmlt8LGMRhFCMzOIR5VkMtRFVqVZCyUOgjVHWnODBkWBL4WFVuIBBvRW1ICfQiEI BkYkDzJknwUMEfGKSkle1EMFZoTTFoCSHaBgLhBMYy IPDtHNkeFYInPVYrVDojYKEsUIMgEJ7EHpJdMHFvFcB7ZKuyJSTlFQQcxe2EPBJlNSNnUmW2HVTvHHNy CSBxJHeiIHToZXXiHWP5NJQrCKOqUT5FHsHmTOZfZtE9PCBwRJZzINZwke3WGMBeTHJtAQFdYTAoUMAw VGHsCYbgRYLkXTW7FDw6CZVaTXYgXV7HGjOrUHScCj rvUgZjDPIhLXKqga7HTNBtHHMqAJD4RiOkSUVlPBCiCWfcCVRdYSG4GBo3CBTkELWjDO4LGfTpRDRqVj g1SSwbBBSkHHXfli3CGACxLUGjFLp6YCSyTJWkSLBjAIlbIPCaMPArLHgmDMVjUCGsJI7HFyBwVXVoLo O0WgLaUKHcIKBwpr4TKXLxLIWoFMZ7WPQbUBQnMHFl EIcoYPBdYQQbCNM2FPQtAVDoQQ9TXgYmTXSxMwP0DqgiATEuTGDtdq1IIKYoSJLqCwO5MNXdRCIqLODd YXgvSNLlLTDyLwv1OITxQYOlKN2LGaIsNGtwIPHDDni6QRasW3e0SXMvIY2OH3Wxu1SaKwkqBBSQPUyc DQ1qbnCzVRPqMx4WH9ySPsheFJE7CwYyXWTaDjinCW S9XSKaSeV7VsW5ZcVyBBRlHN4rMYN3HSkcDKR0IsCkJKA2Vyj1GgRaPTO2MPtpTLP3WZUcZhGiGB7XZp 6LQyF0OYD5zKVxPz4EXxJ8OKDMHyJfKB6ZQGh= ID Date Data Source [id number] 10/10/2020 03:02:50 PM [facility] Name Value Range Interpretation Code Description Data Sally rce(s) Supporting Document(s) Progress Note [facility] DTMGYf2jXsDQNbJq26/SPJvmFCEff1CzSBtvVNh3UArcAMVfV5DpICR4lC7kHSA5MEoMYmRmUqTcELQ2 lbm [file] 9mKUYSJm9+PTuobXFkjJniAHAIYgMmSqo9FAojIDVFPu6L ID Date Data Source [id number] 09/13/2020 07:30:38 AM EDT [facility] XR SPINE LUMBAR 4-MORE VIEWS [id number] RESULTInterpreted by:Julian Regan MDHANY SPINECLINICAL STATEMENT: Status post lumbar fusion. Low back pain.TECHNIQUE: AP, flexion-extension, and neutral lateral views of the lumbar spine.COMPARISON: 07/26/2020.FINDINGS:Since the prior study, there has been no significant interval change. The patient is again noted to be status post laminectomy and fusion at L1-L5. Bilateral pedicle screws with interconnecting rods appear intact and well aligned. Again, the L3 and L4 intervertebral cage devices appear to project beyond the anterior margin of the corresponding vertebra, approximately 6 to 8 mm, unchanged.Normal anatomic alignment is maintained. Normal vertebral body heights are preserved.The remaining intervertebral disc spaces appear unremarkable.IMPRESSION: Since 07/26/2020,No significant interval change. Status post lumbar fusion at L1-L5, with stable postoperative changes.This document has been electronically signed by Julian Regan MD on 09/13/2020 7:28 AM Name Value Range Interpretation Code Description Data Sally rce(s) Supporting Document(s) Procedure Social History Code Duration Value Status Description Data Source(s ) Alcohol intake 10/22/2021 12:00:00 AM EST Current drinker of al cohol (finding) completed Current drinker of alcohol (finding) [facility] Smoking 10/16/2021 12:00:00 AM EST Former Smoker completed Former Smoker [email or web address] ([facility]ly [facility]) Alcohol intake 10/05/2021 12:00:00 AM EST Current drinker of al cohol (finding) completed Current drinker of alcohol (finding) [facility] Smoking 10/02/2021 12:00:00 AM EST Former Smoker completed Former Smoker eCW1 (Formerly [facility]) Alcohol intake 08/01/2021 12:00:00 AM EDT Current drinker of al cohol (finding) completed Current drinker of alcohol (finding) [facility] Alcohol intake 07/27/2021 12:00:00 AM EDT Current drinker of al cohol (finding) completed Current drinker of alcohol (finding) [facility] Smoking 07/10/2021 10:23:00 AM EDT Former Smoker completed Former Smoker [facility] Smoking 07/02/2021 12:00:00 AM EDT Former Smoker completed Former Smoker eCW1 (Formerly [facility]) Smoking 07/02/2021 12:00:00 AM EDT Former Smoker completed Former Smoker eCW1 (Formerly [facility]) Smoking 07/02/2021 12:00:00 AM EDT Former Smoker completed Former Smoker eCW1 (Formerly [facility]) Smoking 07/02/2021 12:00:00 AM EDT Former Smoker completed Former Smoker eCW1 (Formerly [facility]) Smoking 07/02/2021 12:00:00 AM EDT Former Smoker completed Former Smoker eCW1 (Formerly [facility]) Smoking 07/02/2021 12:00:00 AM EDT Former Smoker completed Former Smoker eCW1 (Formerly [facility]) Smoking 07/02/2021 12:00:00 AM EDT Former Smoker completed Former Smoker eCW1 (Formerly [facility]) Alcohol intake 05/31/2021 12:00:00 AM EDT Current drinker of al cohol (finding) completed Current drinker of alcohol (finding) [facility] Smoking 05/09/2021 12:00:00 AM EDT Current Smoker completed Curre nt Smoker eCW1 (Formerly [facility]) Smoking 05/09/2021 12:00:00 AM EDT Current Smoker completed Curre nt Smoker eCW1 (Formerly [facility]) Smoking 05/09/2021 12:00:00 AM EDT Current Smoker completed Curre nt Smoker eCW1 (Formerly [facility]) Smoking 05/09/2021 12:00:00 AM EDT Current Smoker completed Curre nt Smoker eCW1 (Formerly [facility]) Smoking 05/09/2021 12:00:00 AM EDT Current Smoker completed Curre nt Smoker eCW1 (Formerly [facility]) Smoking 03/29/2021 12:00:00 AM EDT Current Smoker completed Curre nt Smoker eCW1 (Formerly [facility]) Alcohol intake 03/14/2021 12:00:00 AM EDT Current drinker of al cohol (finding) completed Current drinker of alcohol (finding) [facility] Smoking 02/23/2021 12:00:00 AM EDT Current Smoker completed Curre nt Smoker eCW1 (Formerly [facility]) Smoking 02/23/2021 12:00:00 AM EDT Current Smoker completed Curre nt Smoker eCW1 (Formerly [facility]) Smoking 02/23/2021 12:00:00 AM EDT Current Smoker completed Curre nt Smoker eCW1 (Formerly [facility]) Smoking 02/23/2021 12:00:00 AM EDT Current Smoker completed Curre nt Smoker eCW1 (Formerly [facility]) Smoking 02/23/2021 12:00:00 AM EDT Current Smoker completed Curre nt Smoker eCW1 (Formerly [facility]) Smoking 02/23/2021 12:00:00 AM EDT Current Smoker completed Curre nt Smoker eCW1 (Formerly [facility]) Smoking 02/23/2021 12:00:00 AM EDT Current Smoker completed Curre nt Smoker eCW1 (Formerly [facility]) Alcohol intake 10/10/2020 12:00:00 AM EST Current drinker of al cohol (finding) completed Current drinker of alcohol (finding) [facility] Vital Signs ID Date Data Source UNK Name Value Range Interpretation Code Description Data Source(s) Body weight 283 [lb_av] 283 [lb_av] eCW1 ([facility]) Body height 65 [in_i] 65 [in_i] eCW1 ([facility]) Body mass index (BMI) [Ratio] 47.09 kg/m2 47.09 kg/m2 eCW1 (Formerly [facility]) Heart rate 110 /min 110 /min eCW1 ([facility]) Respiratory rate 20 /min 20 /min eCW1 ([facility]) Body temperature 96.7 [degF] 96.7 [degF] eCW1 ( Formerly [facility]) Systolic blood pressure 128 mm[Hg] 128 mm[Hg] e CW1 (Formerly [facility]) Diastolic blood pressure 80 mm[Hg] 80 mm[Hg] eCW1 (Formerly [facility]) Systolic blood pressure 111 mm[Hg] Normal (applies t o non-numeric results) 111 mm[Hg] [facility] Diastolic blood pressure 76 mm[Hg] Normal (applies to non-numeric results) 76 mm[Hg] [facility] Heart rate 112 min Normal (applies to non-numeric resul ts) 112 min [facility] Respiratory rate 18 min Normal (applies to non-numeric results) 18 min [facility] Body temperature 36.8 zen Normal (applies to non-numeric results) 36.8 zen [facility] Deprecated Oxygen saturation in Capillary blood by Oximetry 95 % Normal (applies to non-numeric results) 95 % [facility] Body height 164.592 cm Normal (applies to non-numeric resu lts) 164.592 cm [facility] Body weight Measured 126.1 kg Normal (applies to n on-numeric results) 126.1 kg [facility] Body mass index (BMI) [Ratio] 46.26 kg/m2 No rmal (applies to non-numeric results) 46.26 kg/m2 [facility] Body weight 264 [lb_av] 264 [lb_av] eCW1 ([facility]) Body weight 119.75 kg 119.75 kg W1 ([facility]) Body temperature 97.3 [degF] 97.3 [degF] eCW1 ( Formerly [facility]) Body height 65 [in_i] 65 [in_i] eCW1 ([facility]) Body mass index (BMI) [Ratio] 43.93 kg/m2 43.93 kg/m2 W1 (Formerly [facility]) Systolic blood pressure 132 mm[Hg] 132 mm[Hg] e CW1 (Formerly [facility]) Heart rate 86 /min 86 /min eCW1 ([facility]) Diastolic blood pressure 82 mm[Hg] 82 mm[Hg] eCW1 (Formerly [facility]) Respiratory rate 18 /min 18 /min eCW1 ([facility]) Body weight Measured 122.3 kg Normal (applies to n on-numeric results) 122.3 kg [facility] Systolic blood pressure 135 mm[Hg] Normal (applies t o non-numeric results) 135 mm[Hg] [facility] Diastolic blood pressure 84 mm[Hg] Normal (applies to non-numeric results) 84 mm[Hg] [facility] Body mass index (BMI) [Ratio] 44.8 kg/m2 No rmal (applies to non-numeric results) 44.8 kg/m2 [facility] Heart rate 90 min Normal (applies to non-numeric resul ts) 90 min [facility] Body height 5032.248 cm Normal (applies to non-numeric res ults) 5032.248 cm [facility] Deprecated Oxygen saturation in Capillary blood by Oximetry 98 % Normal (applies to non-numeric results) 98 % [facility] Respiratory rate 18 min Normal (applies to non-numeric results) 18 min [facility] Body temperature 36.8 zen Normal (applies to non-numeric results) 36.8 zen [facility] Diastolic blood pressure 80 mm[Hg] 80 mm[Hg] JAJA ([facility]) Body height 65 [in_i] 65 [in_i] JAJA ([facility]) Systolic blood pressure 120 mm[Hg] 120 mm[Hg] A THENA ([facility]) Diastolic blood pressure 80 mm[Hg] 80 mm[Hg] JAJA ([facility]) Body height 65 [in_i] 65 [in_i] JAJA ([facility]) Systolic blood pressure 120 mm[Hg] 120 mm[Hg] A THENA ([facility]) Diastolic blood pressure 80 mm[Hg] 80 mm[Hg] JAJA ([facility]) Body height 65 [in_i] 65 [in_i] JAJA ([facility]) Systolic blood pressure 120 mm[Hg] 120 mm[Hg] A THENA ([facility]) Diastolic blood pressure 80 mm[Hg] 80 mm[Hg] JAJA ([facility]) Body height 65 [in_i] 65 [in_i] JAJA ([facility]) Systolic blood pressure 120 mm[Hg] 120 mm[Hg] A THENA ([facility]) Body weight 268.4 [lb_av] 268.4 [lb_av] eCW1 ([facility]) Body height 65 [in_i] 65 [in_i] eCW1 ([facility]) Body mass index (BMI) [Ratio] 44.66 kg/m2 44.66 kg/m2 eCW1 (Formerly [facility]) Heart rate 122 /min 122 /min eCW1 ([facility]) Respiratory rate 18 /min 18 /min eCW1 ([facility]) Body temperature 97.7 [degF] 97.7 [degF] eCW1 ( Formerly [facility]) Systolic blood pressure 132 mm[Hg] 132 mm[Hg] e CW1 (Formerly [facility]) Diastolic blood pressure 88 mm[Hg] 88 mm[Hg] eCW1 (Formerly [facility]) Diastolic blood pressure 92 mm[Hg] 92 mm[Hg] JAJA ([facility]) Body height 65 [in_i] 65 [in_i] JAJA ([facility]) Systolic blood pressure 129 mm[Hg] 129 mm[Hg] A THENA ([facility]) Diastolic blood pressure 92 mm[Hg] 92 mm[Hg] JAJA ([facility]) Body height 65 [in_i] 65 [in_i] JAJA ([facility]) Systolic blood pressure 129 mm[Hg] 129 mm[Hg] A THENA ([facility]) Diastolic blood pressure 92 mm[Hg] 92 mm[Hg] JAJA ([facility]) Body height 65 [in_i] 65 [in_i] JAJA ([facility]) Systolic blood pressure 129 mm[Hg] 129 mm[Hg] A THENA ([facility]) Diastolic blood pressure 92 mm[Hg] 92 mm[Hg] JAJA ([facility]) Body height 65 [in_i] 65 [in_i] JAJA ([facility]) Systolic blood pressure 129 mm[Hg] 129 mm[Hg] A THENA ([facility]) Diastolic blood pressure 92 mm[Hg] 92 mm[Hg] JAJA ([facility]) Body height 65 [in_i] 65 [in_i] JAJA ([facility]) Systolic blood pressure 129 mm[Hg] 129 mm[Hg] A THENA ([facility]) Body weight 279 [lb_av] 279 [lb_av] eCW1 ([facility]) Body height 65 [in_i] 65 [in_i] eCW1 ([facility]) Body mass index (BMI) [Ratio] 46.42 kg/m2 46.42 kg/m2 eCW1 (Formerly [facility]) Heart rate 110 /min 110 /min eCW1 ([facility]) Respiratory rate 20 /min 20 /min eCW1 ([facility]) Body temperature 98.5 [degF] 98.5 [degF] eCW1 ( Formerly [facility]) Systolic blood pressure 146 mm[Hg] 146 mm[Hg] e CW1 (Formerly [facility]) Diastolic blood pressure 92 mm[Hg] 92 mm[Hg] eCW1 (Formerly [facility]) Diastolic blood pressure 73 mm[Hg] 73 mm[Hg] JAJA ([facility]) Diastolic blood pressure 73 mm[Hg] 73 mm[Hg] JAJA ([facility]) Body height 65 [in_i] 65 [in_i] JAJA ([facility]) Systolic blood pressure 118 mm[Hg] 118 mm[Hg] A THENA ([facility]) Body height 65 [in_i] 65 [in_i] JAJA ([facility]) Systolic blood pressure 118 mm[Hg] 118 mm[Hg] A THENA ([facility]) Systolic blood pressure 118 mm[Hg] 118 mm[Hg] A THENA ([facility]) Diastolic blood pressure 73 mm[Hg] 73 mm[Hg] JAJA ([facility]) Body height 65 [in_i] 65 [in_i] JAJA ([facility]) Body height 65 [in_i] 65 [in_i] JAJA ([facility]) Diastolic blood pressure 73 mm[Hg] 73 mm[Hg] JAJA ([facility]) Systolic blood pressure 118 mm[Hg] 118 mm[Hg] A THENA ([facility]) Diastolic blood pressure 73 mm[Hg] 73 mm[Hg] JAJA ([facility]) Body height 65 [in_i] 65 [in_i] JAJA ([facility]) Systolic blood pressure 118 mm[Hg] 118 mm[Hg] A THENA ([facility]) Diastolic blood pressure 73 mm[Hg] 73 mm[Hg] JAJA ([facility]) Body height 65 [in_i] 65 [in_i] JAJA ([facility]) Systolic blood pressure 118 mm[Hg] 118 mm[Hg] A THENA ([facility]) Diastolic blood pressure 73 mm[Hg] 73 mm[Hg] JAJA ([facility]) Body height 65 [in_i] 65 [in_i] JAJA ([facility]) Systolic blood pressure 118 mm[Hg] 118 mm[Hg] A THENA ([facility]) Diastolic blood pressure 73 mm[Hg] 73 mm[Hg] JAJA ([facility]) Body height 65 [in_i] 65 [in_i] JAJA ([facility]) Systolic blood pressure 118 mm[Hg] 118 mm[Hg] A THENA ([facility]) Body weight 265 [lb_av] 265 [lb_av] eCW1 ([facility]) Body height 65 [in_i] 65 [in_i] eCW1 ([facility]) Body mass index (BMI) [Ratio] 44.09 kg/m2 44.09 kg/m2 W1 (Formerly [facility]) Heart rate 122 /min 122 /min eCW1 ([facility]) Respiratory rate 18 /min 18 /min eCW1 ([facility]) Body temperature 95.4 [degF] 95.4 [degF] eCW1 ( Formerly [facility]) Systolic blood pressure 128 mm[Hg] 128 mm[Hg] e CW1 (Formerly [facility]) Diastolic blood pressure 80 mm[Hg] 80 mm[Hg] eCW1 (Formerly [facility]) ID Date Data Source [id number] 10/22/2021 01:27:00 PM [facility] Name Value Range Interpretation Code Description Data Source(s) WEIGHT RECORDED 270 lb 270 lb [facility] Body height Measured 65 in 65 in [facility] ID Date Data Source [id number] 10/10/2020 03:02:50 PM [facility] Name Value Range Interpretation Code Description Data Source(s) WEIGHT RECORDED 235 lb 235 lb [facility] Body height Measured 64 in 64 in [facility] Patient Treatment Plan of Care Planned Activity Planned Date Details Description Data Source (s) 3 ML heparin sodium, porcine 100 UNT/ML Prefilled Syri nge 10/12/2021 12:00:00 AM [facility]sp[facility] Oxacillin Sodium 2 GM Injection Solution Reconstituted 10/12/2021 12:00:00 AM [facility] Normal Saline Flush 0.9 % Intravenous Solution 10/12/2021 12:00:00 AM [facility] potassium chloride (K-DUR) dissolvable tablet 20 mEq 09:00:00 PM [facility] sodium chloride flush 0.9 % 10 mL 10/11/2021 03:45:00 PM [facility] sodium chloride flush 0.9 % 10 mL 10/11/2021 03:45:00 PM [facility] sodium chloride flush 0.9 % 10 mL 10/11/2021 03:38:57 PM [facility] sodium chloride flush 0.9 % 10 mL 10/11/2021 03:38:57 PM [facility] sodium chloride flush 0.9 % 10 mL 10/11/2021 03:38:55 PM [facility] sodium chloride 0.9 % bag 3-20 mL 10/11/2021 03:38:44 PM [facility] sennosides, MCC 8.6 MG Oral Tablet 10/11/2021 12:00:00 AM [facility] Rifampin 300 MG Oral Capsule 10/11/2021 12:00:00 AM [facility] dextrose 5 % SOLN 500 mL with oxacillin 1 g SOLR 12 g 10/11/2021 12:00:00 AM [facility] Normal Saline Flush 0.9 % Intravenous Solution 10/11/2021 12:00:00 AM [facility] 3 ML heparin sodium, porcine 100 UNT/ML Prefilled Syri nge 10/11/2021 12:00:00 AM [facility] Acetaminophen 325 MG / Oxycodone Hydrochloride 5 MG Or al Tablet 10/11/2021 12:00:00 AM [facility] Potassium Chloride Sara ER 20 MEQ Oral Tablet Extended Release (K-DUR) 10/11/2021 12:00:00 AM [facility] POLYETHYLENE GLYCOL 3350 142 MG/ML Oral Solution 10/11/2021 12:00:0 0 AM [facility] Docusate Sodium 100 MG Oral Capsule 10/11/2021 12:00:00 AM [facility] Potassium Chloride 20 MEQ Extended Release Oral Tablet 10/11/2021 12:00:00 AM [facility] perflutren lipid microspheres (DEFINITY) injectable ferrer spension 9.78 mg 10/10/2021 08:23:32 AM [facility] Bisacodyl 10 MG Rectal Suppository 10/09/2021 04:42:53 PM [facility] senna (SENOKOT) syrup 10 mL 10/05/2021 10:15:00 PM [facility] duloxetine 30 MG Delayed Release Oral Capsule 09/12/2021 12:00:00 A M [facility] Oxycodone Hydrochloride 5 MG Oral Tablet 07/24/2021 12:00:00 AM [facility] methylPREDNISolone 4 MG Oral Tablet Therapy Pack (MEDR OL DOSEPACK) 06/19/2021 12:00:00 AM [facility] methylPREDNISolone 4 MG Oral Tablet Therapy Pack (MEDR OL DOSEPACK) 06/13/2021 12:00:00 AM [facility] Phenazopyridine hydrochloride 200 MG Oral Tablet [Pyri dium] 05/09/2021 12:00:00 AM EDT eCW1 ([facility]) Sulfamethoxazole 800 MG / Trimethoprim 160 MG Oral Tab let [Bactrim] 05/09/2021 12:00:00 AM EDT eCW1 ([facility]) Fluconazole 150 MG Oral Tablet 05/09/2021 12:00:00 AM EDT eCW1 ([facility]) Medrol (Jalen) 4 MG 05/09/2021 12:00:00 AM EDT eCW1 (Formerly [facility]) Phenazopyridine hydrochloride 200 MG Oral Tablet [Pyri dium] 05/09/2021 12:00:00 AM EDT eCW1 ([facility]) Sulfamethoxazole 800 MG / Trimethoprim 160 MG Oral Tab let [Bactrim] 05/09/2021 12:00:00 AM EDT eCW1 ([facility]) Fluconazole 150 MG Oral Tablet 05/09/2021 12:00:00 AM EDT eCW1 (Formerly [facility]) Medrol (Jalen) 4 MG 05/09/2021 12:00:00 AM EDT eCW1 (Formerly [facility]) Phenazopyridine hydrochloride 200 MG Oral Tablet [Pyri dium] 05/09/2021 12:00:00 AM EDT eCW1 ([facility]) Sulfamethoxazole 800 MG / Trimethoprim 160 MG Oral Tab let [Bactrim] 05/09/2021 12:00:00 AM EDT eCW1 ([facility]) Fluconazole 150 MG Oral Tablet 05/09/2021 12:00:00 AM EDT eCW1 (Formerly [facility]) Phenazopyridine hydrochloride 200 MG Oral Tablet [Pyri dium] 05/09/2021 12:00:00 AM EDT eCW1 ([facility]) Sulfamethoxazole 800 MG / Trimethoprim 160 MG Oral Tab let [Bactrim] 05/09/2021 12:00:00 AM EDT eCW1 ([facility]) Medrol (Jalen) 4 MG 05/09/2021 12:00:00 AM EDT eCW1 ([facility]) Fluconazole 150 MG Oral Tablet 05/09/2021 12:00:00 AM EDT eCW1 ([facility]ly [facility]) Medrol (Jalen) 4 MG 05/09/2021 12:00:00 AM EDT eCW1 ([facility]ly [facility]) Phenazopyridine hydrochloride 200 MG Oral Tablet [Pyri dium] 05/09/2021 12:00:00 AM EDT eCW1 ([facility]) Sulfamethoxazole 800 MG / Trimethoprim 160 MG Oral Tab let [Bactrim] 05/09/2021 12:00:00 AM EDT eCW1 ([facility]) Fluconazole 150 MG Oral Tablet 05/09/2021 12:00:00 AM EDT eCW1 ([facility]) Medrol (Jalen) 4 MG 05/09/2021 12:00:00 AM EDT eCW1 ([facility]) Sertraline 50 MG Oral Tablet 04/29/2021 12:00:00 AM [facility] Cholecalciferol 2000 UNT Oral Tablet 03/29/2021 12:00:00 AM EDT eCW1 ([facility]ly [facility]) Cholecalciferol 2000 UNT Oral Tablet 03/29/2021 12:00:00 AM EDT eCW1 ([facility]ly [facility]) Cholecalciferol 2000 UNT Oral Tablet 03/29/2021 12:00:00 AM EDT eCW1 ([facility]) Cholecalciferol 2000 UNT Oral Tablet 03/29/2021 12:00:00 AM EDT eCW1 ([facility]ly [facility]) valacyclovir 500 MG Oral Tablet 05/10/2020 12:00:00 AM [facility] Clonidine Hydrochloride 0.1 MG Oral Tablet 04/11/2020 12:00:[address] [facility] zolpidem tartrate 10 mg tabs JAJA ([facility]) Zolpidem tartrate 10 MG Oral Tablet JAJA ([facility]) valacyclovir 500 MG Oral Tablet JAJA ([facility]) tramadol hydrochloride 50 MG Oral Tablet JAJA ([facility]) tizanidine hydrochloride 4 mg tabs JAJA ([facility]) tizanidine 4 MG Oral Tablet JAJA ([facility]) Sulfamethoxazole 800 MG / Trimethoprim 160 MG Oral Tablet JAJA ([facility]) Sertraline 50 MG Oral Tablet JAJA ([facility]) pregabalin 75 MG Oral Capsule JAJA ([facility]) pregabalin 100 mg caps ATHE NA ([facility]) Prednisone 20 MG Oral Tablet JAJA ([facility]) Phenazopyridine hydrochloride 200 MG Oral Tablet JAJA ([facility]) paroxetine HCl 50 mg once daily JAJA ([facility]) paroxetine 40 mg tablet ATHE NA ([facility]) paroxetine 10 mg tablet TAKE ONE TABLET BY MOUTH EVERY DAY JAJA ([facility]) Oxycodone Hydrochloride 5 MG Oral Tablet JAJA ([facility]) Oxycodone Hydrochloride 15 MG Oral Tablet JAJA ([facility]) Oxybutynin chloride 5 MG Oral Tablet JAJA ([facility]) 24 HR Nicotine 0.583 MG/HR Transdermal Patch JAJA ([facility]) methylprednisolone 4 mg tablets in a dose pack FOLLOWING PACKAGE DIRECTIONS JAJA ([facility]) Methocarbamol 500 MG Oral Tablet JAJA ([facility]) Lurasidone Hydrochloride 80 MG Oral Tablet [Latuda] JAJA ([facility]) Lurasidone Hydrochloride 60 MG Oral Tablet [Latuda] JAJA ([facility]) Lurasidone Hydrochloride 20 MG Oral Tablet [Latuda] JAJA ([facility]) latuda 80 mg tabs JAJA ([facility]) Hydroxyzine Hydrochloride 25 MG Oral Tablet JAJA ([facility]) Acetaminophen 325 MG / Hydrocodone Bitartrate 5 MG Oral Tablet JAJA ([facility]) Fluconazole 150 MG Oral Tablet JAJA ([facility]) duloxetine hydrochloride 60 mg cpep JAJA ([facility]) duloxetine 30 MG Delayed Release Oral Capsule JAJA ([facility]) Cyclobenzaprine hydrochloride 10 MG Oral Tablet JAJA ([facility]) Clonidine Hydrochloride 0.1 MG Oral Tablet JAJA ([facility]) clonidine hcl 0.1 mg tabs A THENA ([facility]) Cephalexin 500 MG Oral Capsule JAJA ([facility]) celecoxib 200 MG Oral Capsule JAJA ([facility]) celecoxib 200 mg caps ATHEN A ([facility]) Carisoprodol 350 MG Oral Tablet JAJA ([facility]) aripiprazole 5 MG Oral Tablet JAJA ([facility]) Acetaminophen 300 MG / Codeine Phosphate 30 MG Oral Tablet JAJA ([facility]) zolpidem tartrate 10 mg tabs JAJA ([facility]) Zolpidem tartrate 10 MG Oral Tablet JAJA ([facility]) valacyclovir 500 MG Oral Tablet JAJA ([facility]) tizanidine hydrochloride 4 mg tabs JAJA ([facility]) tizanidine 4 MG Oral Tablet JAAJ ([facility]) Sulfamethoxazole 800 MG / Trimethoprim 160 MG Oral Tablet JAJA ([facility]) Sertraline 50 MG Oral Tablet [facility] [facility] pregabalin 75 MG Oral Capsule JAJA ([facility]) pregabalin 100 mg caps ATHE NA ([facility]) Phenazopyridine hydrochloride 200 MG Oral Tablet JAJA ([facility]) paroxetine HCl 50 mg once daily JAJA ([facility]) paroxetine 40 mg tablet ATHE NA ([facility]) paroxetine 10 mg tablet TAKE ONE TABLET BY MOUTH EVERY DAY JAJA ([facility]) Oxycodone Hydrochloride 5 MG Oral Tablet JAJA ([facility]) Oxycodone Hydrochloride 15 MG Oral Tablet JAJA ([facility]) Oxybutynin chloride 5 MG Oral Tablet JAJA ([facility]) 24 HR Nicotine 0.583 MG/HR Transdermal Patch JAJA ([facility]) methylprednisolone 4 mg tablets in a dose pack USE DIRECTED JAJA ([facility]) Methocarbamol 500 MG Oral Tablet JAJA ([facility]) Lurasidone Hydrochloride 80 MG Oral Tablet [Latuda] JAJA ([facility]) Lurasidone Hydrochloride 60 MG Oral Tablet [Latuda] JAJA ([facility]) Lurasidone Hydrochloride 20 MG Oral Tablet [Latuda] JAJA ([facility]) latuda 80 mg tabs JAJA ([facility] Hydroxyzine Hydrochloride 25 MG Oral Tablet JAJA ([facility]) aripiprazole 5 MG Oral Tablet [facility] zolpidem tartrate 10 mg tabs JAJA ([facility]) Zolpidem tartrate 10 MG Oral Tablet JAJA ([facility]) valacyclovir 500 MG Oral Tablet JAJA ([facility]) tizanidine hydrochloride 4 mg tabs JAJA ([facility]) tizanidine 4 MG Oral Tablet JAJA ([facility]) Sulfamethoxazole 800 MG / Trimethoprim 160 MG Oral Tablet JAJA ([facility]) Sertraline 50 MG Oral Tablet JAJA ([facility]) pregabalin 75 MG Oral Capsule JAJA ([facility]) pregabalin 100 mg caps ATHE NA ([facility] Phenazopyridine hydrochloride 200 MG Oral Tablet JAJA ([facility]) paroxetine HCl 50 mg once daily JAJA ([facility]) paroxetine 40 mg tablet ATHE NA ([facility]) paroxetine 10 mg tablet TAKE ONE TABLET BY MOUTH EVERY DAY JAJA ([facility]) Oxycodone Hydrochloride 5 MG Oral Tablet JAJA ([facility]) Oxycodone Hydrochloride 15 MG Oral Tablet JAJA ([facility]) Oxybutynin chloride 5 MG Oral Tablet JAJA ([facility]) 24 HR Nicotine 0.583 MG/HR Transdermal Patch JAJA ([facility]) methylprednisolone 4 mg tablets in a dose pack USE DIRECTED JAJA ([facility] Methocarbamol 500 MG Oral Tablet JAJA ([facility]) Lurasidone Hydrochloride 80 MG Oral Tablet [Latuda] JAJA ([facility] Lurasidone Hydrochloride 60 MG Oral Tablet [Latuda] JAJA ([facility]) Lurasidone Hydrochloride 20 MG Oral Tablet [Latuda] JAJA ([facility]) latuda 80 mg tabs JAJA ([facility] Hydroxyzine Hydrochloride 25 MG Oral Tablet JAJA ([facility]) Fluconazole 150 MG Oral Tablet JAJA ([facility]) duloxetine hydrochloride 60 mg cpep JAJA ([facility]) Clonidine Hydrochloride 0.1 MG Oral Tablet JAJA ([facility]) clonidine hcl 0.1 mg tabs A THENA ([facility]) Cephalexin 500 MG Oral Capsule JAJA ([facility]) celecoxib 200 MG Oral Capsule JAJA ([facility]) celecoxib 100 MG Oral Capsule JAJA ([facility]) celecoxib 200 mg caps ATHEN A ([facility]) Carisoprodol 350 MG Oral Tablet JAJA ([facility]) aripiprazole 5 MG Oral Tablet JAJA ([facility]) aripiprazole 5 mg tabs ATHE NA ([facility]) Alprazolam 0.25 MG Oral Tablet JAJA ([facility]) albuterol sulfate HFA 90 mcg/actuation aerosol inhaler JAJA ([facility]) Acetaminophen 300 MG / Codeine Phosphate 30 MG Oral Tablet JAJA ([facility]) zolpidem tartrate 10 mg tabs JAJA ([facility]) Zolpidem tartrate 10 MG Oral Tablet JAJA ([facility]) valacyclovir 500 MG Oral Tablet JAJA ([facility]) tizanidine hydrochloride 4 mg tabs JAJA ([facility]) tizanidine 4 MG Oral Tablet JAJA ([facility]) Sulfamethoxazole 800 MG / Trimethoprim 160 MG Oral Tablet JAJA ([facility]) Sertraline 50 MG Oral Tablet JAJA ([facility]) pregabalin 75 MG Oral Capsule JAJA ([facility]) aripiprazole 5 mg tabs ATHE NA ([facility]) Alprazolam 0.25 MG Oral Tablet JAJA ([facility]) albuterol sulfate HFA 90 mcg/actuation aerosol inhaler JAJA ([facility]) tramadol hydrochloride 50 MG Oral Tablet [facility] pregabalin 100 mg caps ATHE NA ([facility]) Phenazopyridine hydrochloride 200 MG Oral Tablet JAJA ([facility]) paroxetine HCl 50 mg once daily JAJA ([facility]) paroxetine 40 mg tablet ATHE NA ([facility]) paroxetine 10 mg tablet TAKE ONE TABLET BY MOUTH EVERY DAY JAJA ([facility]) Oxycodone Hydrochloride 5 MG Oral Tablet JAJA ([facility]) Oxycodone Hydrochloride 15 MG Oral Tablet JAJA ([facility]) Oxybutynin chloride 5 MG Oral Tablet JAJA ([facility]) 24 HR Nicotine 0.583 MG/HR Transdermal Patch JAJA ([facility]) methylprednisolone 4 mg tablets in a dose pack USE DIRECTED JAJA ([facility]) Methocarbamol 500 MG Oral Tablet JAJA ([facility]) Lurasidone Hydrochloride 80 MG Oral Tablet [Latuda] JAJA ([facility]) Lurasidone Hydrochloride 60 MG Oral Tablet [Latuda] JAJA ([facility]) Lurasidone Hydrochloride 20 MG Oral Tablet [Latuda] JAJA ([facility]) latuda 80 mg tabs JAJA ([facility] Hydroxyzine Hydrochloride 25 MG Oral Tablet JAJA ([facility]) Fluconazole 150 MG Oral Tablet JAJA ([facility]) duloxetine hydrochloride 60 mg cpep JAJA ([facility]) duloxetine 30 MG Delayed Release Oral Capsule JAJA ([facility]) Clonidine Hydrochloride 0.1 MG Oral Tablet JAJA ([facility]) clonidine hcl 0.1 mg tabs A THENA ([facility]) Cephalexin 500 MG Oral Capsule JAJA ([facility]) celecoxib 200 MG Oral Capsule JAJA ([facility]) celecoxib 100 MG Oral Capsule JAJA ([facility]) celecoxib 200 mg caps ATHEN A ([facility]) Carisoprodol 350 MG Oral Tablet JAJA ([facility]) aripiprazole 5 MG Oral Tablet JAJA ([facility]) aripiprazole 5 mg tabs ATHE NA ([facility]) Alprazolam 0.25 MG Oral Tablet JAJA ([facility]) albuterol sulfate HFA 90 mcg/actuation aerosol inhaler JAJA ([facility]) Acetaminophen 300 MG / Codeine Phosphate 30 MG Oral Tablet JAJA ([facility]) aripiprazole 5 MG Oral Tablet JAJA ([facility] aripiprazole 5 mg tabs ATHE NA ([facility]) albuterol sulfate HFA 90 mcg/actuation aerosol inhaler JAJA ([facility]) Acetaminophen 300 MG / Codeine Phosphate 30 MG Oral Tablet JAJA ([facility]) zolpidem tartrate 10 mg tabs JAJA ([facility]) Zolpidem tartrate 10 MG Oral Tablet JAJA ([facility]) valacyclovir 500 MG Oral Tablet JAJA ([facility]) tizanidine hydrochloride 4 mg tabs JAJA ([facility]) tizanidine 4 MG Oral Tablet JAJA ([facility]) pregabalin 75 MG Oral Capsule JAJA ([facility]) pregabalin 100 mg caps ATHE NA ([facility]) paroxetine HCl 50 mg once daily JAJA ([facility]) paroxetine 40 mg tablet ATHE NA ([facility]) paroxetine 10 mg tablet TAKE ONE TABLET BY MOUTH EVERY DAY JAJA ([facility]) Oxycodone Hydrochloride 5 MG Oral Tablet JAJA ([facility]) Oxycodone Hydrochloride 15 MG Oral Tablet JAJA ([facility]) Oxybutynin chloride 5 MG Oral Tablet JAJA ([facility]) 24 HR Nicotine 0.583 MG/HR Transdermal Patch JAJA ([facility]) methylprednisolone 4 mg tablets in a dose pack FOLLOW PACKAGE DIREC TIONS JAJA ([facility]) Methocarbamol 500 MG Oral Tablet JAJA ([facility]) Lurasidone Hydrochloride 80 MG Oral Tablet [Latuda] JAJA ([facility] Lurasidone Hydrochloride 60 MG Oral Tablet [Latuda] JAJA ([facility]) Lurasidone Hydrochloride 20 MG Oral Tablet [Latuda] JAJA ([facility]) latuda 80 mg tabs JAJA ([facility] Hydroxyzine Hydrochloride 25 MG Oral Tablet JAJA ([facility]) duloxetine hydrochloride 60 mg cpep JAJA ([facility]) duloxetine 30 MG Delayed Release Oral Capsule JAJA ([facility]) Clonidine Hydrochloride 0.1 MG Oral Tablet JAJA ([facility]) clonidine hcl 0.1 mg tabs A THENA ([facility]) Cephalexin 500 MG Oral Capsule JAJA ([facility]) celecoxib 200 mg caps ATHEN A ([facility]) Carisoprodol 350 MG Oral Tablet JAJA ([facility]) aripiprazole 5 MG Oral Tablet JAJA ([facility]) aripiprazole 5 mg tabs ATHE NA ([facility]) albuterol sulfate HFA 90 mcg/actuation aerosol inhaler JAJA ([facility]) Acetaminophen 300 MG / Codeine Phosphate 30 MG Oral Tablet JAJA ([facility]) zolpidem tartrate 10 mg tabs JAJA ([facility]) Zolpidem tartrate 10 MG Oral Tablet JAJA ([facility]) valacyclovir 500 MG Oral Tablet JAJA ([facility]) tizanidine hydrochloride 4 mg tabs JAJA ([facility]) tizanidine 4 MG Oral Tablet JAJA ([facility]) pregabalin 75 MG Oral Capsule JAJA ([facility]) Fluconazole 150 MG Oral Tablet JAJA ([facility]) duloxetine hydrochloride 60 mg cpep JAJA ([facility] Clonidine Hydrochloride 0.1 MG Oral Tablet JAJA ([facility]) clonidine hcl 0.1 mg tabs A THENA ([facility]) Cephalexin 500 MG Oral Capsule JAJA ([facility]) celecoxib 200 MG Oral Capsule JAJA ([facility]) celecoxib 100 MG Oral Capsule JAJA ([facility]) celecoxib 200 mg caps ATHEN A ([facility]) Carisoprodol 350 MG Oral Tablet JAJA ([facility]) aripiprazole 5 MG Oral Tablet JAJA ([facility]) aripiprazole 5 mg tabs ATHE NA ([facility]) Alprazolam 0.25 MG Oral Tablet JAJA ([facility]) albuterol sulfate HFA 90 mcg/actuation aerosol inhaler JAJA ([facility]) Acetaminophen 300 MG / Codeine Phosphate 30 MG Oral Tablet JAJA ([facility]) pregabalin 100 mg caps ATHE NA ([facility]) paroxetine HCl 50 mg once daily JAJA ([facility]) paroxetine 40 mg tablet ATHE NA ([facility]) paroxetine 10 mg tablet TAKE ONE TABLET BY MOUTH EVERY DAY JAJA ([facility]) Oxycodone Hydrochloride 5 MG Oral Tablet JAJA ([facility]) Oxycodone Hydrochloride 15 MG Oral Tablet JAJA ([facility]) Oxybutynin chloride 5 MG Oral Tablet JAJA ([facility]) 24 HR Nicotine 0.583 MG/HR Transdermal Patch JAJA ([facility]) methylprednisolone 4 mg tablets in a dose pack FOLLOW PACKAGE DIREC TIONS JAJA ([facility]) Methocarbamol 500 MG Oral Tablet JAJA ([facility]) Lurasidone Hydrochloride 80 MG Oral Tablet [Latuda] JAJA ([facility]) Lurasidone Hydrochloride 60 MG Oral Tablet [Latuda] JAJA ([facility]) Lurasidone Hydrochloride 20 MG Oral Tablet [Latuda] JAJA ([facility]) latuda 80 mg tabs JAJA ([facility] Hydroxyzine Hydrochloride 25 MG Oral Tablet JAJA ([facility]) duloxetine hydrochloride 60 mg cpep JAJA ([facility]) duloxetine 30 MG Delayed Release Oral Capsule JAJA ([facility]) Clonidine Hydrochloride 0.1 MG Oral Tablet JAJA ([facility]) clonidine hcl 0.1 mg tabs A THENA ([facility] Cephalexin 500 MG Oral Capsule JAJA ([facility]) celecoxib 200 mg caps ATHEN A ([facility]) Carisoprodol 350 MG Oral Tablet JAJA ([facility]) aripiprazole 5 MG Oral Tablet JAJA ([facility]) aripiprazole 5 mg tabs ATHE NA ([facility]) albuterol sulfate HFA 90 mcg/actuation aerosol inhaler JAJA ([facility]) Acetaminophen 300 MG / Codeine Phosphate 30 MG Oral Tablet JAJA ([facility]) duloxetine hydrochloride 60 mg cpep JAJA ([facility]) duloxetine 30 MG Delayed Release Oral Capsule JAJA ([facility]) Clonidine Hydrochloride 0.1 MG Oral Tablet JAJA ([facility]) clonidine hcl 0.1 mg tabs A THENA ([facility]) Cephalexin 500 MG Oral Capsule JAJA ([facility]) celecoxib 200 mg caps ATHEN A ([facility]) Carisoprodol 350 MG Oral Tablet JAJA ([facility]) aripiprazole 5 MG Oral Tablet JAJA ([facility]) aripiprazole 5 mg tabs ATHE NA ([facility]) albuterol sulfate HFA 90 mcg/actuation aerosol inhaler JAJA ([facility]) Acetaminophen 300 MG / Codeine Phosphate 30 MG Oral Tablet JAJA ([facility]) zolpidem tartrate 10 mg tabs JAJA ([facility]) Zolpidem tartrate 10 MG Oral Tablet JAJA ([facility]) valacyclovir 500 MG Oral Tablet JAJA ([facility]) tizanidine hydrochloride 4 mg tabs JAJA ([facility]) tizanidine 4 MG Oral Tablet JAJA ([facility]) pregabalin 75 MG Oral Capsule JAJA ([facility]) pregabalin 100 mg caps ATHE NA ([facility]) paroxetine HCl 50 mg once daily JAJA ([facility]) paroxetine 40 mg tablet ATHE NA ([facility] paroxetine 10 mg tablet TAKE ONE TABLET BY MOUTH EVERY DAY JAJA ([facility]) Oxycodone Hydrochloride 5 MG Oral Tablet JAJA ([facility]) Oxycodone Hydrochloride 15 MG Oral Tablet JAJA ([facility]) Oxybutynin chloride 5 MG Oral Tablet JAJA ([facility]) 24 HR Nicotine 0.583 MG/HR Transdermal Patch JAJA ([facility]) methylprednisolone 4 mg tablets in a dose pack FOLLOW PACKAGE DIREC TIONS JAJA ([facility]) Methocarbamol 500 MG Oral Tablet JAJA ([facility]) Lurasidone Hydrochloride 80 MG Oral Tablet [Latuda] JAJA ([facility] Lurasidone Hydrochloride 60 MG Oral Tablet [Latuda] JAJA ([facility]) Lurasidone Hydrochloride 20 MG Oral Tablet [Latuda] JAJA ([facility]) latuda 80 mg tabs JAJA ([facility]) Hydroxyzine Hydrochloride 25 MG Oral Tablet JAJA ([facility]) duloxetine hydrochloride 60 mg cpep JAJA ([facility] duloxetine 30 MG Delayed Release Oral Capsule JAJA ([facility]) Clonidine Hydrochloride 0.1 MG Oral Tablet JJAA ([facility]) clonidine hcl 0.1 mg tabs A THENA ([facility]) Cephalexin 500 MG Oral Capsule JAJA ([facility]) celecoxib 200 mg caps ATHEN A ([facility]) Carisoprodol 350 MG Oral Tablet JAJA ([facility]) zolpidem tartrate 10 mg tabs JAJA ([facility]) Zolpidem tartrate 10 MG Oral Tablet JAJA ([facility]) valacyclovir 500 MG Oral Tablet JAJA ([facility]) tizanidine hydrochloride 4 mg tabs JAJA ([facility] tizanidine 4 MG Oral Tablet JAJA ([facility]) pregabalin 75 MG Oral Capsule JAJA ([facility]) pregabalin 100 mg caps ATHE NA ([facility]) paroxetine HCl 50 mg once daily JAJA ([facility]) paroxetine 40 mg tablet ATHE NA ([facility]) paroxetine 10 mg tablet TAKE ONE TABLET BY MOUTH EVERY DAY JAJA ([facility]) Oxycodone Hydrochloride 5 MG Oral Tablet JAJA ([facility]) Oxycodone Hydrochloride 15 MG Oral Tablet JAJA ([facility]) Oxybutynin chloride 5 MG Oral Tablet JAJA ([facility]) 24 HR Nicotine 0.583 MG/HR Transdermal Patch JAJA ([facility]) Methocarbamol 500 MG Oral Tablet JAJA ([facility] Lurasidone Hydrochloride 80 MG Oral Tablet [Latuda] JAJA ([facility]) Lurasidone Hydrochloride 60 MG Oral Tablet [Latuda] JAJA ([facility]) Lurasidone Hydrochloride 20 MG Oral Tablet [Latuda] JAJA ([facility]) latuda 80 mg tabs JAJA ([facility] Hydroxyzine Hydrochloride 25 MG Oral Tablet JAJA ([facility])
== END 2021-09-05 20:30 | disposition left against medical advice (07) ==
LOC: M ED 16:36
DX: Z53.21 Procedure and treatment not carried out due to patient leaving prior to being seen by health care provider (principal)

== ENCOUNTER → 2021-10-02 | Outpatient (REF) | payer OTHER ==
[~2021-10-02] MED LIST changes: +CELE1CAP7; +DULO1CAP5; +LATU120T; +PREG100C; -PROHANCE 279.3MG/ML 15ML VIAL As Ordered ONE; -PROHANCE 279.3MG/ML 5ML VIAL As Ordered ONE
[2021-10-02 12:14] LABS: BASO # 0.1 10^3/uL (0.0-0.2); BASO % 0.6 % (0.0-1.0); EOS # 0.4 10^3/uL (0.0-0.5); EOS % 2.9 % (0.0-3.0); HEMATOCRIT 34.5 % (36.0-47.0); HEMOGLOBIN 10.5 g/dl (12.0-15.5); LYMPH # 1.9 10^3/uL (1.5-5.0); LYMPH % 13.4 % (24.0-44.0); MEAN CORPUSCULAR HEMOGLOBIN 24.9 pg (27.0-33.0); MEAN CORPUSCULAR HGB CONC 30.4 g/dl (32.0-36.5); MEAN CORPUSCULAR VOLUME 81.9 fl (80.0-96.0); MONO % 10.7 % (2.0-8.0); NEUTROPHILS # 9.9 10^3/uL (1.5-8.5); NEUTROPHILS % 70.3 % (36.0-66.0); PLATELET COUNT, AUTOMATED 516 10^3/uL (150-450); RED BLOOD COUNT 4.21 10^6/uL (4.00-5.40); WHITE BLOOD COUNT 14.1 10^3/uL (4.0-10.0)
[2021-10-02 12:49] LABS: MONO # 1.5 10^3/uL (0.0-0.8)
[2021-10-02 14:04] LABS: ERYTHROCYTE SEDIMENTATION RATE 116 mm/hr (0-20)
[2021-10-02 14:08] LABS: ALBUMIN 2.2 GM/DL (3.2-5.2); ALT/SGPT 16 U/L (12-78); BILIRUBIN,TOTAL 0.3 MG/DL (0.2-1.0); BLOOD UREA NITROGEN 9 MG/DL (7-18); CALCIUM LEVEL 9.4 MG/DL (8.5-10.1); CARBON DIOXIDE LEVEL 28 MEQ/L (21-32); CHLORIDE LEVEL 97 MEQ/L (98-107); GLOMERULAR FILTRATION RATE > 60.0 (>58); GLUCOSE, FASTING 94 MG/DL (70-100); POTASSIUM SERUM 4.1 MEQ/L (3.5-5.1); SODIUM LEVEL 135 MEQ/L (136-145); TOTAL PROTEIN 7.1 GM/DL (6.4-8.2)
== END ==
LOC: M SFHCADAM 11:08
PROVIDERS: ATTEND Physician Assistant
DX: M54.42 Lumbago with sciatica, left side (principal); R50.9 Fever, unspecified
CPT/HCPCS: 80053; 85025; 85652; 86140; U0003

== ENCOUNTER → 2021-10-15 | Outpatient (REF) | payer OTHER ==
[2021-10-15 12:08] LABS: BASO # 0.1 10^3/uL (0.0-0.2); BASO % 0.8 % (0.0-1.0); EOS # 0.4 10^3/uL (0.0-0.5); HEMATOCRIT 28.6 % (36.0-47.0); HEMOGLOBIN 8.5 g/dl (12.0-15.5); LYMPH % 26.3 % (24.0-44.0); MEAN CORPUSCULAR HEMOGLOBIN 24.9 pg (27.0-33.0); MEAN CORPUSCULAR HGB CONC 29.7 g/dl (32.0-36.5); MEAN CORPUSCULAR VOLUME 83.6 fl (80.0-96.0); MONO # 0.6 10^3/uL (0.0-0.8); MONO % 7.9 % (2.0-8.0); NEUTROPHILS # 4.6 10^3/uL (1.5-8.5); NEUTROPHILS % 59.6 % (36.0-66.0); PLATELET COUNT, AUTOMATED 378 10^3/uL (150-450); RED BLOOD COUNT 3.42 10^6/uL (4.00-5.40); WHITE BLOOD COUNT 7.6 10^3/uL (4.0-10.0)
[2021-10-15 12:40] LABS: ALBUMIN 1.9 GM/DL (3.2-5.2); ALT/SGPT 9 U/L (12-78); BILIRUBIN,TOTAL 0.3 MG/DL (0.2-1.0); BLOOD UREA NITROGEN 9 MG/DL (7-18); C REACTIVE PROTEIN QUANTITATIV 4.61 MG/DL (0.00-0.30); CALCIUM LEVEL 8.5 MG/DL (8.5-10.1); CARBON DIOXIDE LEVEL 32 MEQ/L (21-32); CHLORIDE LEVEL 104 MEQ/L (98-107); CREATININE FOR GFR 0.59 MG/DL (0.55-1.30); GLOMERULAR FILTRATION RATE > 60.0 (>58); GLUCOSE, FASTING 87 MG/DL (70-100); POTASSIUM SERUM 4.2 MEQ/L (3.5-5.1); SODIUM LEVEL 141 MEQ/L (136-145); TOTAL PROTEIN 6.3 GM/DL (6.4-8.2)
[2021-10-15 12:51] LABS: ERYTHROCYTE SEDIMENTATION RATE 109 mm/hr (0-20)
== END ==
LOC: M SHH 11:47
DX: Z79.2 Long term (current) use of antibiotics (principal); T81.89XD Other complications of procedures, not elsewhere classified, subsequent encounter; I80.9 Phlebitis and thrombophlebitis of unspecified site

== ENCOUNTER → 2021-10-24 | Outpatient (REF) | payer OTHER ==
[~2021-10-24] MED LIST changes: +ARIP10TA32 PO; +BACTINJ2 IV; -CELE1CAP7; +CELE1CAP7 PO; -DULO1CAP5; +DULO1CAP5 PO; -LATU120T; +LATU120T PO; +OXYC1TAB23 PO; +POTA1TAB14 PO; +PREG150C PO; +RIFA300C3 PO; +VITA200032 PO; +[UNRECOGNIZED DRUG - OTHER]
[2021-10-24 17:52] LABS: BASO # 0.1 10^3/uL (0.0-0.2); BASO % 1.1 % (0.0-1.0); EOS # 0.4 10^3/uL (0.0-0.5); EOS % 6.8 % (0.0-3.0); HEMOGLOBIN 10.2 g/dl (12.0-15.5); LYMPH # 1.8 10^3/uL (1.5-5.0); LYMPH % 27.7 % (24.0-44.0); MEAN CORPUSCULAR HGB CONC 29.1 g/dl (32.0-36.5); MEAN CORPUSCULAR VOLUME 85.8 fl (80.0-96.0); MONO # 0.5 10^3/uL (0.0-0.8); MONO % 7.9 % (2.0-8.0); NEUTROPHILS # 3.7 10^3/uL (1.5-8.5); NEUTROPHILS % 56.2 % (36.0-66.0); PLATELET COUNT, AUTOMATED 362 10^3/uL (150-450); RED BLOOD COUNT 4.08 10^6/uL (4.00-5.40); WHITE BLOOD COUNT 6.5 10^3/uL (4.0-10.0)
[2021-10-24 18:21] LABS: ALBUMIN 2.6 GM/DL (3.2-5.2); ALT/SGPT 10 U/L (12-78); BILIRUBIN,TOTAL 0.3 MG/DL (0.2-1.0); BLOOD UREA NITROGEN 10 MG/DL (7-18); C REACTIVE PROTEIN QUANTITATIV 2.77 MG/DL (0.00-0.30); CALCIUM LEVEL 8.8 MG/DL (8.5-10.1); CARBON DIOXIDE LEVEL 28 MEQ/L (21-32); CHLORIDE LEVEL 106 MEQ/L (98-107); GLOMERULAR FILTRATION RATE > 60.0 (>58); GLUCOSE, FASTING 87 MG/DL (70-100); POTASSIUM SERUM 4.3 MEQ/L (3.5-5.1); SODIUM LEVEL 141 MEQ/L (136-145); TOTAL PROTEIN 7.2 GM/DL (6.4-8.2)
[2021-10-24 18:48] LABS: ERYTHROCYTE SEDIMENTATION RATE 90 mm/hr (0-20)
== END ==
LOC: M SHH 17:24
PROVIDERS: ATTEND Internal Medicine
DX: T81.89XD Other complications of procedures, not elsewhere classified, subsequent encounter (principal); Z79.2 Long term (current) use of antibiotics; I50.9 Heart failure, unspecified; Y83.8 Other surgical procedures as the cause of abnormal reaction of the patient, or of later complication, without mention of misadventure at the time of the procedure

== ENCOUNTER → 2021-10-29 | Outpatient (REF) | payer OTHER ==
[~2021-10-29] MED LIST changes: -ARIP10TA32 PO; -BACTINJ2 IV; +CELE1CAP7; -CELE1CAP7 PO; +DULO1CAP5; -DULO1CAP5 PO; +LATU120T; -LATU120T PO; -OXYC1TAB23 PO; -POTA1TAB14 PO; -PREG150C PO; -RIFA300C3 PO; -VITA200032 PO; -[UNRECOGNIZED DRUG - OTHER]
[2021-10-29 16:43] LABS: BASO # 0.1 10^3/uL (0.0-0.2); BASO % 1.2 % (0.0-1.0); EOS # 0.5 10^3/uL (0.0-0.5); EOS % 7.1 % (0.0-3.0); HEMATOCRIT 37.7 % (36.0-47.0); LYMPH # 1.9 10^3/uL (1.5-5.0); LYMPH % 28.2 % (24.0-44.0); MEAN CORPUSCULAR HEMOGLOBIN 24.9 pg (27.0-33.0); MEAN CORPUSCULAR HGB CONC 29.2 g/dl (32.0-36.5); MEAN CORPUSCULAR VOLUME 85.3 fl (80.0-96.0); MONO # 0.6 10^3/uL (0.0-0.8); MONO % 8.4 % (2.0-8.0); NEUTROPHILS # 3.7 10^3/uL (1.5-8.5); PLATELET COUNT, AUTOMATED 327 10^3/uL (150-450); RED BLOOD COUNT 4.42 10^6/uL (4.00-5.40); WHITE BLOOD COUNT 6.8 10^3/uL (4.0-10.0)
[2021-10-29 17:13] LABS: ERYTHROCYTE SEDIMENTATION RATE 74 mm/hr (0-20)
[2021-10-29 17:37] LABS: ALBUMIN 2.8 GM/DL (3.2-5.2); ALT/SGPT 11 U/L (12-78); BILIRUBIN,TOTAL 0.3 MG/DL (0.2-1.0); BLOOD UREA NITROGEN 5 MG/DL (7-18); C REACTIVE PROTEIN QUANTITATIV 2.81 MG/DL (0.00-0.30); CARBON DIOXIDE LEVEL 30 MEQ/L (21-32); CHLORIDE LEVEL 104 MEQ/L (98-107); CREATININE FOR GFR 0.58 MG/DL (0.55-1.30); GLOMERULAR FILTRATION RATE > 60.0 (>58); GLUCOSE, FASTING 83 MG/DL (70-100); POTASSIUM SERUM 4.1 MEQ/L (3.5-5.1); SODIUM LEVEL 141 MEQ/L (136-145); TOTAL PROTEIN 7.3 GM/DL (6.4-8.2)
== END ==
LOC: M SHH 16:07
PROVIDERS: ATTEND Internal Medicine
DX: T81.89XD Other complications of procedures, not elsewhere classified, subsequent encounter (principal); Z79.2 Long term (current) use of antibiotics; I50.9 Heart failure, unspecified; Y83.8 Other surgical procedures as the cause of abnormal reaction of the patient, or of later complication, without mention of misadventure at the time of the procedure

== ENCOUNTER → 2021-11-05 | Outpatient (REF) | payer OTHER ==
[~2021-11-05] MED LIST changes: +ARIP10TA32 PO; +BACTINJ2 IV; -CELE1CAP7; +CELE1CAP7 PO; -DULO1CAP5; +DULO1CAP5 PO; -LATU120T; +LATU120T PO; +OXYC1TAB23 PO; +POTA1TAB14 PO; +PREG150C PO; +RIFA300C3 PO; +VITA200032 PO; +[UNRECOGNIZED DRUG - OTHER]
[2021-11-05 17:53] LABS: BASO # 0.1 10^3/uL (0.0-0.2); BASO % 0.9 % (0.0-1.0); EOS # 0.4 10^3/uL (0.0-0.5); EOS % 6.6 % (0.0-3.0); HEMATOCRIT 38.4 % (36.0-47.0); HEMOGLOBIN 11.4 g/dl (12.0-15.5); LYMPH # 1.6 10^3/uL (1.5-5.0); LYMPH % 23.9 % (24.0-44.0); MEAN CORPUSCULAR HEMOGLOBIN 25.1 pg (27.0-33.0); MEAN CORPUSCULAR HGB CONC 29.7 g/dl (32.0-36.5); MEAN CORPUSCULAR VOLUME 84.4 fl (80.0-96.0); MONO # 0.6 10^3/uL (0.0-0.8); MONO % 8.6 % (2.0-8.0); NEUTROPHILS # 3.9 10^3/uL (1.5-8.5); NEUTROPHILS % 59.8 % (36.0-66.0); PLATELET COUNT, AUTOMATED 244 10^3/uL (150-450); RED BLOOD COUNT 4.55 10^6/uL (4.00-5.40); WHITE BLOOD COUNT 6.5 10^3/uL (4.0-10.0)
[2021-11-05 19:23] LABS: ERYTHROCYTE SEDIMENTATION RATE 61 mm/hr (0-20)
[2021-11-05 21:21] LABS: ALT/SGPT 21 U/L (12-78); BILIRUBIN,TOTAL 0.2 MG/DL (0.2-1.0); BLOOD UREA NITROGEN 11 MG/DL (7-18); C REACTIVE PROTEIN QUANTITATIV 1.54 MG/DL (0.00-0.30); CALCIUM LEVEL 9.3 MG/DL (8.5-10.1); CARBON DIOXIDE LEVEL 28 MEQ/L (21-32); CHLORIDE LEVEL 104 MEQ/L (98-107); CREATININE FOR GFR 0.54 MG/DL (0.55-1.30); GLOMERULAR FILTRATION RATE > 60.0 (>58); GLUCOSE, FASTING 90 MG/DL (70-100); POTASSIUM SERUM 3.5 MEQ/L (3.5-5.1); SODIUM LEVEL 139 MEQ/L (136-145); TOTAL PROTEIN 7.3 GM/DL (6.4-8.2)
== END ==
LOC: M SHH 16:41 → M LABDRWAD 16:41
PROVIDERS: ATTEND Internal Medicine
DX: T81.89XD Other complications of procedures, not elsewhere classified, subsequent encounter (principal); Z79.2 Long term (current) use of antibiotics; I50.9 Heart failure, unspecified; Y83.8 Other surgical procedures as the cause of abnormal reaction of the patient, or of later complication, without mention of misadventure at the time of the procedure

== ENCOUNTER 2021-11-10 17:28 | Observation (INO) | payer OTHER ==
[~2021-11-10] VITALS: Ht 165.1 cm; Wt 119.4 kg
[~2021-11-10 17:28] MED LIST changes: -ARIP10TA32 PO; -BACTINJ2 IV; -OXYC1TAB23 PO; -POTA1TAB14 PO; -PREG150C PO; -RIFA300C3 PO; -VITA200032 PO; -[UNRECOGNIZED DRUG - OTHER]
[2021-11-10] MEDS ORDERED: OXYC1TAB23 PO (17:38)
[2021-11-10] MEDS ORDERED: RIFA300C3 PO (17:38)
[2021-11-10] MEDS ORDERED: D 202000 PO (17:38)
[2021-11-10] MEDS ORDERED: POTA1TAB14 PO (17:38)
[2021-11-10] MEDS ORDERED: BACTINJ2 IV (17:38)
--- NOTE | 2021-11-10 18:32 | REP ---
INDICATION: PICC line came out COMPARISON: 05/14/2014 TECHNIQUE: PA and lateral. FINDINGS: The mediastinum and cardiac silhouette are normal. The lung schwarz are clear and without acute consolidation, effusion, or pneumothorax. The skeletal structures are intact and normal. IMPRESSION: No acute cardiopulmonary process. <Electronically signed by Blanco Armenta > 11/10/21 [id number]
[2021-11-10] MEDS ORDERED: PREG150C PO (21:00)
[2021-11-10] MEDS ORDERED: ARIP10TA32 PO (21:00)
[2021-11-10] MEDS ORDERED: [UNRECOGNIZED DRUG - OTHER] (21:35)
[2021-11-10] MEDS ORDERED: HOME MED LIST COMPLETE! XX SCH (21:40)
[2021-11-10 22:02] LABS: BASO # 0.1 10^3/uL (0.0-0.2); EOS # 0.4 10^3/uL (0.0-0.5); EOS % 6.1 % (0.0-3.0); HEMATOCRIT 39.3 % (36.0-47.0); HEMOGLOBIN 11.9 g/dl (12.0-15.5); LYMPH # 1.8 10^3/uL (1.5-5.0); LYMPH % 25.8 % (24.0-44.0); MEAN CORPUSCULAR HEMOGLOBIN 25.1 pg (27.0-33.0); MEAN CORPUSCULAR HGB CONC 30.3 g/dl (32.0-36.5); MEAN CORPUSCULAR VOLUME 82.7 fl (80.0-96.0); MONO # 0.8 10^3/uL (0.0-0.8); MONO % 11.3 % (2.0-8.0); NEUTROPHILS # 3.9 10^3/uL (1.5-8.5); NEUTROPHILS % 55.5 % (36.0-66.0); PLATELET COUNT, AUTOMATED 259 10^3/uL (150-450); RED BLOOD COUNT 4.75 10^6/uL (4.00-5.40); WHITE BLOOD COUNT 7.1 10^3/uL (4.0-10.0)
[2021-11-10] MEDS ORDERED: MOM 30ML SUSPENSION UDC PO PRN (22:15)
[2021-11-10 22:21] LABS: BLOOD UREA NITROGEN 5 MG/DL (7-18); CALCIUM LEVEL 9.1 MG/DL (8.5-10.1); CARBON DIOXIDE LEVEL 25 MEQ/L (21-32); CHLORIDE LEVEL 105 MEQ/L (98-107); GLOMERULAR FILTRATION RATE > 60.0 (>58); GLUCOSE, FASTING 90 MG/DL (70-100); POTASSIUM SERUM 3.9 MEQ/L (3.5-5.1); SODIUM LEVEL 141 MEQ/L (136-145)
--- NOTE | 2021-11-10 22:58 | HPEPDOC ---
[facility] Medical History & Physical Date of Admission Nov 10, 2021 Date of Service: Nov 10, 2021 History and Physical CHIEF COMPLAINT: PICC line fell out HISTORY OF PRESENT ILLNESS: 46-year-old female history of depression and chronic back pain presents to the emergency department because her PICC line fell out. Patient usually follows at [facility] and has been following with Dr. Padilla infectious diseases who has been treating her for discitis and infected hardware with 6 weeks of IV antibiotics with IV oxacillin. She is approximately 4 weeks into her treatment when her PICC line fell out. [place] in our emergency department discussed with [facility] they recommended patient be admitted over the weekend until interventional radiology appointment can be planned for Friday morning so she can have a new PICC line placed. They advised patient should be admitted for IV antibiotics and should not be sent home she should be placed on either oxacillin or nafcillin 2 g IV every 4 hours until then. Patient currently is without complaints her back pain is at baseline. PAST MEDICAL/SURGICAL HISTORY: Depression Chronic back pain Lumbar spine fusion one year ago Lumbar spine revision June 2021 Lumbar spine debridement one month ago SOCIAL HISTORY: Denies alcohol use Endorses smoking half a pack of cigarettes per day does not want a nicotine patch Denies illicit drug use FAMILY HISTORY: Reviewed and none contributory to this admission ALLERGIES: Please see below. REVIEW OF SYSTEMS: 10 point review of systems complete all negative otherwise stated in HPI HOME MEDICATIONS: Please see below. PHYSICAL EXAMINATION: Constitutional: Awake and alert, in no apparent distress ENT: Mucosa is moist. Respiratory: Lungs CTA bilaterally. No respiratory distress. Cardiovascular: Regular rate and rhythm Gastrointestinal: Abdomen is soft, non distended, non tender Musculoskeletal: No lower extremity edema. Neurologic: No focal neurological deficit. Mental Status: A&O x3, normal affect LABORATORY DATA: See below. IMAGING: See chart MICROBIOLOGY: Please see below. ASSESSMENT/PLAN # Discitis: Needs 6 weeks total of IV Abx per treatment plan by her ID physician. Has received 4 weeks thus far. PICC line fell out. Admitted for IV Abx with naficillin 2g every 4 hours per recommendations from her ID doctor, Dr Padilla at [place]. [facility] will arrange for OP interventional radiology to plac e a PICC line for her on Friday. # Chronic back pain: continue home meds as needed # Depression: Continue home medications # DVT prophylaxis: Lovenox A [facility] Hospital[facility] Vital Signs Vital Signs Date Time Temp Pulse Resp B/P (MAP) Pulse Ox O2 Delivery O2 Flow Rate FiO2 11/10/21 17:28 97.1 104 18 122/70 (87) 99 Room Air Laboratory Data Labs 24H Laboratory Tests 2 11/10/21 21:51: Immature Granulocyte % (Auto) 0.3, Neutrophils (%) (Auto) 55.5, Lymphocytes (%) (Auto) 25.8, Monocytes (%) (Auto) 11.3H, Eosinophils (%) (Auto) 6.1H, Basophils (%) (Auto) 1.0, Neutrophils # (Auto) 3.9, Lymphocytes # (Auto) 1.8, Monocytes # (Auto) 0.8, Eosinophils # (Auto) 0.4, Basophils # (Auto) 0.1, Nucleated Red Blood Cells % (auto) 0.0 CBC/BMP Laboratory Tests 11/10/21 21:51 Home Medications Scheduled Cholecalciferol (Vitamin D3) (Vitamin D3) 50 Mcg Tablet, 50 MCG PO DAILY Duloxetine Hcl (Duloxetine HCl) 30 Mg Capsule.dr, 30 MG PO BID Lurasidone HCl (Latuda) 120 Mg Tablet, 120 MG PO DAILY with a 350 calorie snack or right after dinner Oxacillin in Dextrose(Iso-Osm) (Oxacillin 2 gm/ 50 ml Inj) 2 Gm/50 Ml Froz.piggy, 2 GRAM IV ASDIRECTED Potassium Chloride (Potassium Chloride) 20 Meq Tablet.er, 20 MEQ PO BID Pregabalin (Pregabalin) 150 Mg Capsule, 150 MG PO TID Rifampin (Rifampin) 300 Mg Capsule, 300 MG PO Q12H Scheduled PRN Celecoxib (Celecoxib) 100 Mg Capsule, 100 MG PO BID PRN for pain Oxycodone HCl/Acetaminophen (Oxycodone-Acetaminophen 5-325) 1 Each Tablet, 1 TAB PO Q6H PRN for SEVERE PAIN (PS 8-10) Allergies Coded Allergies: No Known Allergies (Unverified , 09/05/21) MORENO LYNCH MD Nov 10, 2021 22:15
[2021-11-11] MEDS ORDERED: NAFCILLIN SOD 2 GM in D5W MINI-BAG PLUS 50 ML IV SCH ×2
[2021-11-11] MEDS: PREGABALIN 75 MG CAP(LYRICA) PO SCH ×4 (00:06→20:13)
[2021-11-11] MEDS: POTASSIUM CHLORIDE 10MEQ SR TABLET PO SCH ×3 (00:07→20:13)
[2021-11-11] MEDS: DULoxetine 30MG CAPSULE (CYMBALTA) PO SCH ×3 (00:07→20:14)
[2021-11-11 00:14] LABS: RSV AMPLIFICATION NEGATIVE (NEGATIVE)
[2021-11-11 01:41] VITALS: BP 98/65
[2021-11-11] MEDS: rifAMPin 150MG CAPSULE PO SCH ×3 (01:58→20:13)
[2021-11-11] MEDS: NAFCILLIN SOD 2 GM in D5W MINI-BAG PLUS 50 ML IV SCH ×6 (02:00→22:16)
[2021-11-11 06:00] VITALS: BP 127/74
--- NOTE | 2021-11-11 09:35 | IPNPDOC ---
Text Note Date of Service The patient was seen on 11/11/21. NOTE Subjective: 46-year-old female currently being treated for discitis presented to the ED after her PICC line fell out. She is being followed with Dr. Padilla at [facility] and has completed four of 6 weeks of antibiotics (Nafcillin 2g IV [id number]). Review of systems: 10 point review of system was negative except for what is noted in the HPI Physical exam: General: Lying in bed, no acute distress Head/Neck/Throat: Trachea midline, mucous membranes moist Eyes: Sclera anicteric, PERRLA Thorax: Normal respiratory effort on room air, lungs clear to auscultation bilaterally, no wheezes/rales/rhonchi Cardiovascular: Normal rate, regular rhythm, normal S1, S2; no S3, S4, ru bs/gallops/murmurs Abdomen: Bowel sounds present, soft/nontender/nondistended Genitourinary: No CVA tenderness, no Farmer in place Musculoskeletal: Surgical scare appreciated over lumbar region. Reports chronic pain with palpation. Skin: Warm, dry Neurologic: AAOx3, speech fluent and goal-directed, no focal deficits, grossly intact Labs: See below Imaging: Please see imaging section Assessment/plan: #Discitis -She had lumbar spine fusion surgery done approximately 1 year ago, and underwent revision in June/2021. She required lumbar spine debridement 1 month ago and was diagnosed with discitis and placed on long-term antibiotics. She is completed for 6 weeks. She was receiving nafcillin 2 g every 4 hours (as per Dr. Padilla her primary infectious disease doctor) however the PICC line fell out on 11/10 therefore came for replacement, which will hopefully be done on 11/12. Continue with nafcillin 2g [id number]. #Chronic back pain -Continue Lyrica #Depression -Continue duloxetine #DVT prophylaxis -Lovenox VS,Fishbone, I+O VS, Fishbone, I+O Laboratory Tests 11/10/21 21:51 Vital Signs Date Time Temp Pulse Resp B/P (MAP) Pulse Ox O2 Delivery O2 Flow Rate FiO2 11/11/21 06:00 98.0 104 16 127/74 (91) 95 Room Air I&O- Last 24 Hours up to 6 AM 11/11/21 06:00 Intake Total 100 ml Output Total 100 ml Balance 0 ml ROSIBEL LEE M.D. Nov 11, 2021 09:35
[2021-11-11] MEDS: LURASIDONE HCL 40 MG TAB (LATUDA) PO SCH (10:18)
[2021-11-11] MEDS: ENOXAPARIN 40MG/0.4ML SYRINGE (J1650 PER 10MG) SC SCH (10:19)
[2021-11-11] MEDS: PERCOCET 5MG/325MG TAB PO PRN ×2 (10:20→17:49)
[2021-11-11 14:00] VITALS: BP 112/57
[2021-11-11 22:00] VITALS: BP 130/68
[2021-11-12] MEDS: NAFCILLIN SOD 2 GM in D5W MINI-BAG PLUS 50 ML IV SCH ×3 (02:05→10:16)
[2021-11-12 06:00] VITALS: BP 110/87
[2021-11-12] MEDS ORDERED: LIDOCAINE 1% MDV 20ML VIAL As Ordered ONE (08:11)
[2021-11-12 08:17] VITALS: BP 126/82
[2021-11-12] MEDS ORDERED: SODIUM CHLORIDE 0.9% INJ 10 ML SYR IV PRN (09:40)
[2021-11-12] MEDS: PREGABALIN 75 MG CAP(LYRICA) PO SCH (10:15)
[2021-11-12] MEDS: rifAMPin 150MG CAPSULE PO SCH (10:15)
[2021-11-12] MEDS: DULoxetine 30MG CAPSULE (CYMBALTA) PO SCH (10:15)
[2021-11-12] MEDS: LURASIDONE HCL 40 MG TAB (LATUDA) PO SCH (10:15)
[2021-11-12] MEDS: POTASSIUM CHLORIDE 10MEQ SR TABLET PO SCH (10:15)
[2021-11-12] MEDS: ENOXAPARIN 40MG/0.4ML SYRINGE (J1650 PER 10MG) SC SCH (10:16)
[2021-11-12 11:41] LABS: BASO # 0.1 10^3/uL (0.0-0.2); EOS # 0.3 10^3/uL (0.0-0.5); EOS % 5.2 % (0.0-3.0); HEMATOCRIT 40.1 % (36.0-47.0); LYMPH # 1.5 10^3/uL (1.5-5.0); LYMPH % 24.2 % (24.0-44.0); MEAN CORPUSCULAR HEMOGLOBIN 25.2 pg (27.0-33.0); MEAN CORPUSCULAR HGB CONC 29.9 g/dl (32.0-36.5); MEAN CORPUSCULAR VOLUME 84.1 fl (80.0-96.0); MONO # 0.6 10^3/uL (0.0-0.8); MONO % 9.3 % (2.0-8.0); NEUTROPHILS # 3.7 10^3/uL (1.5-8.5); NEUTROPHILS % 60.1 % (36.0-66.0); PLATELET COUNT, AUTOMATED 242 10^3/uL (150-450); RED BLOOD COUNT 4.77 10^6/uL (4.00-5.40); WHITE BLOOD COUNT 6.2 10^3/uL (4.0-10.0)
--- NOTE | 2021-11-12 11:59 | DS.PDOC ---
Discharge Summary General Date of Admission Nov 10, 2021 at 22:11 Date of Discharge 11/12/21 Discharge Summary DISCHARGE DIAGNOSES: 1. Discitis 2. PICC line reinserted COMPLICATIONS/CHIEF COMPLAINT: Discitis Of Lumbar Region,Displacement Of Picc. HOSPITAL COURSE: Ms. Cedillo, is a 46-year-old female with a history of discitis, depression and chronic back pain who presented emergency room department at [facility] on 11/10 because of her PICC line falling out. She is currently being treated for discitis by Dr. Padilla (infectious disease physician in [place]). She had her PICC line reinserted on 11/12 and will be resuming with her home antibiotics and care as per primary infectious disease physician. Of note, she receives home all services as well and was due for blood work today which was ordered for their behalf. The results will be followed up with the appropriate services upon discharge. They will be responsible for abnormailites/replacement that may be required. Patient is aware of this. DISCHARGE MEDICATIONS: Please see below. ALLERGIES: Please see below. PHYSICAL EXAMINATION ON DISCHARGE: VITAL SIGNS: Please see below. Physical exam: General: Lying in bed, no acute distress Head/Neck/Throat: Trachea midline, mucous membranes moist Eyes: Sclera anicteric, PERRLA Thorax: Normal respiratory effort on room air, lungs clear to auscultation bilaterally, no wheezes/rales/rhonchi Cardiovascular: Normal rate, regular rhythm, normal S1, S2; no S3, S4, rubs/gallops/murmurs Abdomen: Bowel sounds present, soft/nontender/nondistended Genitourinary: No CVA tenderness, no Farmer in place Musculoskeletal: Surgical scare appreciated over lumbar region. Reports chronic pain with palpation. Skin: Warm, dry Neurologic: AAOx3, speech fluent and goal-directed, no focal deficits, grossly intact LABORATORY DATA: Please see below. IMAGING: Please refer to imaging section. PROGNOSIS: Good ACTIVITY: As tolerated DIET: Regular DISCHARGE PLAN: DISPOSITION: Home, with home services (already arranged for her) DISCHARGE INSTRUCTIONS: 1. Follow up with primary ID doctor upon discharge TIME SPENT ON DISCHARGE: 30 minutes. Vital Signs/I&Os Vital Signs Date Time Temp Pulse Resp B/P (MAP) Pulse Ox O2 Delivery O2 Flow Rate FiO2 11/12/21 09:06 Room Air 12/20/21 08:17 99.1 97 18 94 11/12/21 06:00 110/87 (95) I&O- Last 24 Hours up to 6 AM 11/12/21 06:00 Intake Total 1950 ml Output Total 1450 ml Balance 500 ml Laboratory Data Labs 24H Laboratory Tests 2 11/12/21 11:28: Immature Granulocyte % (Auto) 0.2, Neutrophils (%) (Auto) 60.1, Lymphocytes (%) (Auto) 24.2, Monocytes (%) (Auto) 9.3H, Eosinophils (%) (Auto) 5.2H, Basophils (%) (Auto) 1.0, Neutrophils # (Auto) 3.7, Lymphocytes # (Auto) 1.5, Monocytes # (Auto) 0.6, Eosinophils # (Auto) 0.3, Basophils # (Auto) 0.1, Nucleated Red Blo od Cells % (auto) 0.0 CBC/BMP Laboratory Tests 11/12/21 11:28 Discharge Medications Scheduled Cholecalciferol (Vitamin D3) (Vitamin D3) 50 Mcg Tablet, 50 MCG PO DAILY, (Reported) Duloxetine Hcl (Duloxetine HCl) 30 Mg Capsule.dr, 30 MG PO BID, (Reported) Lurasidone HCl (Latuda) 120 Mg Tablet, 120 MG PO DAILY, (Reported) with a 350 calorie snack or right after dinner Oxacillin in Dextrose(Iso-Osm) (Oxacillin 2 gm/ 50 ml Inj) 2 Gm/50 Ml Froz. piggy, 2 GRAM IV ASDIRECTED, (Reported) Pregabalin (Pregabalin) 150 Mg Capsule, 150 MG PO TID, (Reported) Rifampin (Rifampin) 300 Mg Capsule, 300 MG PO Q12H, (Reported) Scheduled PRN Celecoxib (Celecoxib) 100 Mg Capsule, 100 MG PO BID PRN for pain, (Reported) Oxycodone HCl/Acetaminophen (Oxycodone-Acetaminophen 5-325) 1 Each Tablet, 1 TAB PO Q6H PRN for SEVERE PAIN (PS 8-10), (Reported) Allergies Coded Allergies: No Known Allergies (Unverified , 09/05/21) ROSIBEL LEE M.D. Nov 12, 2021 11:59
[2021-11-12 12:09] LABS: ALBUMIN 2.9 GM/DL (3.2-5.2); ALT/SGPT 19 U/L (12-78); BILIRUBIN,TOTAL 0.9 MG/DL (0.2-1.0); BLOOD UREA NITROGEN 9 MG/DL (7-18); C REACTIVE PROTEIN QUANTITATIV 3.16 MG/DL (0.00-0.30); CALCIUM LEVEL 9.7 MG/DL (8.5-10.1); CARBON DIOXIDE LEVEL 30 MEQ/L (21-32); CHLORIDE LEVEL 104 MEQ/L (98-107); CREATININE FOR GFR 0.66 MG/DL (0.55-1.30); GLOMERULAR FILTRATION RATE > 60.0 (>58); GLUCOSE, FASTING 96 MG/DL (70-100); POTASSIUM SERUM 4.2 MEQ/L (3.5-5.1); SODIUM LEVEL 139 MEQ/L (136-145); TOTAL PROTEIN 7.8 GM/DL (6.4-8.2)
[2021-11-12 12:15] LABS: ERYTHROCYTE SEDIMENTATION RATE 67 mm/hr (0-20)
--- NOTE | 2021-11-12 17:25 | REP ---
PROCEDURE NAME: PICC LINE INSERTION W/SITERITE CLINICAL INFORMATION: half-way antibiotics. COMPARISON: None. PROCEDURE DESCRIPTION: The procedure was performed by ANA Cheney, under the direct supervision of Dr. Masterson. The risks and benefits of the procedure were explained to the patient and an informed consent was obtained both verbally and written. Directly prior to the start of the procedure a formal time-out was completed in the procedure room. The left basilic vein was localized using ultrasound guidance. The skin was prepped and draped in sterile fashion. Two mL of 1% lidocaine 10 mg/mL was used as a local anesthetic. Using ultrasound guidance the left basilic vein was cannulated, and a 0.018 guidewire was inserted and advanced to the level of SVC using fluoroscopic guidance. The needle was removed and a 5 Liberian dilator and peel-away sheath was inserted over the guidewire. A 4.5 [place]ian single lumen catheter was cut to a length of 44 cm. The dilator was removed and the catheter was inserted over the guidewire with the tip ending at the level of the SVC. The peel-away sheath was removed and the catheter was flushed with heparinized saline as per hospital protocol. The catheter was affixed to the skin and a sterile dressing was applied. The patient tolerated the procedure well and there were no immediate complications. CONCLUSION: PICC line insertion into the left basilic vein. 0.1 minutes of fluoroscopy time was utilized for this procedure. Some fluoroscopic images are performed with last image hold technology. These images require no additional radiation. <Electronically signed by Radha Bob > 11/12/21 1343 <Electronically signed by Mook Masterson > 11/12/21 1118
[2021-11-12] MEDS ORDERED: SODIUM CHLORIDE 0.9% INJ 10 ML SYR IV SCH (18:00)
== END 2021-11-12 11:38 | disposition home or self-care (01) ==
LOC: M ED 17:28 → M ED INP 17:29 → INTOOBSV 22:11 → UNDOADMOB 22:11 → ENRESERV 11-11 00:19 → M MSPAV 11-11 01:42 → M ED INP 11-11 01:42 → M MSPAV 11-11 01:42 → UNDODISOB 11-12 11:38
PROVIDERS: ADMIT Family Medicine; ATTEND Internal Medicine
DX: T82.524A Displacement of infusion catheter, initial encounter (principal); T84.63XA Infection and inflammatory reaction due to internal fixation device of spine, initial encounter; F32.A Depression, unspecified; M46.46 Discitis, unspecified, lumbar region; F17.210 Nicotine dependence, cigarettes, uncomplicated; Z98.1 Arthrodesis status; Y83.1 Surgical operation with implant of artificial internal device as the cause of abnormal reaction of the patient, or of later complication, without mention of misadventure at the time of the procedure; Z79.899 Other long term (current) drug therapy
CPT/HCPCS: 36415; 36569; 71046; 76937; 80048; 80053; 85025; 85652; 86140; 87631; 96365; 96366; 99284; C1751; J1642; J1644; J1650

== ENCOUNTER → 2021-11-19 | Outpatient (REF) | payer OTHER ==
[~2021-11-19] MED LIST changes: +ARIP10TA32 PO; +BACTINJ2 IV; +OXYC1TAB23 PO; +POTA1TAB14 PO; +PREG150C PO; +RIFA300C3 PO; +VITA200032 PO; +[UNRECOGNIZED DRUG - OTHER]
[2021-11-19 13:48] LABS: BASO # 0.1 10^3/uL (0.0-0.2); BASO % 1.3 % (0.0-1.0); EOS # 0.4 10^3/uL (0.0-0.5); EOS % 6.4 % (0.0-3.0); HEMATOCRIT 38.2 % (36.0-47.0); HEMOGLOBIN 11.7 g/dl (12.0-15.5); LYMPH # 1.2 10^3/uL (1.5-5.0); LYMPH % 18.3 % (24.0-44.0); MEAN CORPUSCULAR HEMOGLOBIN 25.7 pg (27.0-33.0); MEAN CORPUSCULAR HGB CONC 30.6 g/dl (32.0-36.5); MEAN CORPUSCULAR VOLUME 83.8 fl (80.0-96.0); MONO # 0.6 10^3/uL (0.0-0.8); MONO % 9.2 % (2.0-8.0); NEUTROPHILS # 4.1 10^3/uL (1.5-8.5); NEUTROPHILS % 64.5 % (36.0-66.0); PLATELET COUNT, AUTOMATED 238 10^3/uL (150-450); RED BLOOD COUNT 4.56 10^6/uL (4.00-5.40); WHITE BLOOD COUNT 6.4 10^3/uL (4.0-10.0)
[2021-11-19 14:05] LABS: ERYTHROCYTE SEDIMENTATION RATE 51 mm/hr (0-20)
[2021-11-19 14:19] LABS: ALBUMIN 2.8 GM/DL (3.2-5.2); ALT/SGPT 27 U/L (12-78); BILIRUBIN,TOTAL 0.3 MG/DL (0.2-1.0); BLOOD UREA NITROGEN 7 MG/DL (7-18); CALCIUM LEVEL 8.6 MG/DL (8.5-10.1); CARBON DIOXIDE LEVEL 27 MEQ/L (21-32); CHLORIDE LEVEL 106 MEQ/L (98-107); CREATININE FOR GFR 0.56 MG/DL (0.55-1.30); GLOMERULAR FILTRATION RATE > 60.0 (>58); GLUCOSE, FASTING 123 MG/DL (70-100); POTASSIUM SERUM 3.4 MEQ/L (3.5-5.1); SODIUM LEVEL 140 MEQ/L (136-145); TOTAL PROTEIN 6.6 GM/DL (6.4-8.2)
== END ==
LOC: M SHH 13:25
PROVIDERS: ATTEND Internal Medicine
DX: T81.89XD Other complications of procedures, not elsewhere classified, subsequent encounter (principal); I50.9 Heart failure, unspecified; Z79.2 Long term (current) use of antibiotics

== ENCOUNTER → 2021-12-17 | Outpatient (REF) | payer OTHER ==
[2021-12-17 17:28] LABS: BASO # 0.1 10^3/uL (0.0-0.2); BASO % 0.9 % (0.0-1.0); EOS # 0.9 10^3/uL (0.0-0.5); EOS % 9.3 % (0.0-3.0); HEMATOCRIT 45.4 % (36.0-47.0); LYMPH # 2.3 10^3/uL (1.5-5.0); LYMPH % 24.1 % (24.0-44.0); MEAN CORPUSCULAR HEMOGLOBIN 26.1 pg (27.0-33.0); MEAN CORPUSCULAR HGB CONC 30.8 g/dl (32.0-36.5); MEAN CORPUSCULAR VOLUME 84.7 fl (80.0-96.0); MONO # 0.8 10^3/uL (0.0-0.8); MONO % 8.7 % (2.0-8.0); NEUTROPHILS # 5.4 10^3/uL (1.5-8.5); NEUTROPHILS % 56.8 % (36.0-66.0); PLATELET COUNT, AUTOMATED 311 10^3/uL (150-450); RED BLOOD COUNT 5.36 10^6/uL (4.00-5.40); WHITE BLOOD COUNT 9.6 10^3/uL (4.0-10.0)
[2021-12-17 17:33] LABS: ALBUMIN 3.2 GM/DL (3.2-5.2); ALT/SGPT 16 U/L (12-78); BILIRUBIN,TOTAL 0.4 MG/DL (0.2-1.0); BLOOD UREA NITROGEN 13 MG/DL (7-18); C REACTIVE PROTEIN QUANTITATIV 1.21 MG/DL (0.00-0.30); CALCIUM LEVEL 9.1 MG/DL (8.5-10.1); CARBON DIOXIDE LEVEL 29 MEQ/L (21-32); CHLORIDE LEVEL 104 MEQ/L (98-107); CREATININE FOR GFR 0.71 MG/DL (0.55-1.30); GLOMERULAR FILTRATION RATE > 60.0 (>58); GLUCOSE, FASTING 87 MG/DL (70-100); POTASSIUM SERUM 5.1 MEQ/L (3.5-5.1); SODIUM LEVEL 140 MEQ/L (136-145); TOTAL PROTEIN 7.4 GM/DL (6.4-8.2)
[2021-12-17 20:39] LABS: ERYTHROCYTE SEDIMENTATION RATE 27 mm/hr (0-20)
== END ==
LOC: M LABDRWAD 15:58
PROVIDERS: ATTEND Internal Medicine
DX: T81.49XA Infection following a procedure, other surgical site, initial encounter (principal)

== ENCOUNTER → 2021-12-31 | Outpatient (CLI) | payer OTHER | LOC: M LABSMTC 12:11 | DX: Z11.52 Encounter for screening for COVID-19 (principal) ==

== ENCOUNTER → 2022-01-04 | Outpatient (REF) | payer OTHER ==
[2022-01-04 13:05] LABS: BASO # 0.1 10^3/uL (0.0-0.2); BASO % 0.9 % (0.0-1.0); EOS # 0.7 10^3/uL (0.0-0.5); EOS % 6.3 % (0.0-3.0); HEMATOCRIT 46.1 % (36.0-47.0); HEMOGLOBIN 14.3 g/dl (12.0-15.5); LYMPH # 2.7 10^3/uL (1.5-5.0); LYMPH % 24.1 % (24.0-44.0); MEAN CORPUSCULAR HEMOGLOBIN 26.5 pg (27.0-33.0); MEAN CORPUSCULAR VOLUME 85.4 fl (80.0-96.0); MONO # 1.3 10^3/uL (0.0-0.8); MONO % 11.3 % (2.0-8.0); NEUTROPHILS # 6.4 10^3/uL (1.5-8.5); PLATELET COUNT, AUTOMATED 298 10^3/uL (150-450); WHITE BLOOD COUNT 11.3 10^3/uL (4.0-10.0)
[2022-01-04 13:36] LABS: HEMOGLOBIN A1c 5.2 %
[2022-01-04 13:39] LABS: BLOOD UREA NITROGEN 9 MG/DL (7-18); CARBON DIOXIDE LEVEL 27 MEQ/L (21-32); CHLORIDE LEVEL 105 MEQ/L (98-107); CREATININE FOR GFR 0.68 MG/DL (0.55-1.30); GLOMERULAR FILTRATION RATE > 60.0 (>58); GLUCOSE, FASTING 94 MG/DL (70-100); GLUCOSE,RANDOM 94 MG/DL (LESS THAN 200); POTASSIUM SERUM 3.7 MEQ/L (3.5-5.1); SODIUM LEVEL 141 MEQ/L (136-145)
[2022-01-04 13:40] LABS: ALBUMIN 3.4 GM/DL (3.2-5.2); ALT/SGPT 18 U/L (12-78); BILIRUBIN,DIRECT 0.1 MG/DL (0.0-0.2); BILIRUBIN,TOTAL 0.3 MG/DL (0.2-1.0); CHOLESTEROL LEVEL 165 MG/DL (<200); CHOLESTEROL RISK RATIO 3.113 (<5); HDL CHOLESTEROL 53 MG/DL (>40); LDL CHOLESTEROL 98 MG/DL (<100); NON-HDL-C 112 MG/DL; PHOSPHORUS LEVEL 3.9 MG/DL (2.5-4.9); TOTAL PROTEIN 7.1 GM/DL (6.4-8.2); TRIGLYCERIDES LEVEL 70 MG/DL (<150)
[2022-01-04 13:54] LABS: TOTAL 25(OH) VITAMIN D 49.5 NG/ML (30.0-100.0)
== END ==
LOC: M LABDRWAD 12:36
PROVIDERS: ATTEND Registered Nurse
DX: F31.4 Bipolar disorder, current episode depressed, severe, without psychotic features (principal); Z51.81 Encounter for therapeutic drug level monitoring; Z13.9 Encounter for screening, unspecified; E55.9 Vitamin D deficiency, unspecified; Z79.899 Other long term (current) drug therapy

== ENCOUNTER → 2022-01-08 | Outpatient (REF) | payer OTHER ==
[2022-01-08 17:00] LABS: APPEARANCE, URINE CLEAR (CLEAR); BACTERIA, URINE AUTO NEGATIVE (NEGATIVE); BILIRUBIN, URINE AUTO NEGATIVE (NEGATIVE); BLOOD, URINE BLOOD NEGATIVE (NEGATIVE); COLOR, URINE STRAW (YELLOW); GLUCOSE, URINE (UA) AUTO NEGATIVE (NEGATIVE); KETONE, URINE AUTO NEGATIVE (NEGATIVE); LEUKOCYTE ESTERASE, URINE AUTO NEGATIVE (NEGATIVE); NITRITE, URINE AUTO NEGATIVE (NEGATIVE); PROTEIN, URINE AUTO NEGATIVE (NEGATIVE); RBC, URINE AUTO 0 /HPF (0-3); SPECIFIC GRAVITY URINE AUTO 1.012 (1.002-1.035); SQUAMOUS EPITHELIAL CELL UR AU 1 /HPF (0-6); UROBILINOGEN, URINE AUTO 0.2 mg/dL (0.0-2.0); WBC, URINE AUTO 1 /HPF (0-3)
== END ==
LOC: M SFHCADAM 16:12
PROVIDERS: ATTEND Physician Assistant Medical
DX: R35.0 Frequency of micturition (principal)

== ENCOUNTER → 2022-02-01 | Outpatient (REF) | payer OTHER ==
[2022-02-01 15:40] LABS: BASO # 0.1 10^3/uL (0.0-0.2); BASO % 0.9 % (0.0-1.0); EOS # 0.2 10^3/uL (0.0-0.5); EOS % 2.9 % (0.0-3.0); HEMATOCRIT 38.8 % (36.0-47.0); LYMPH # 1.9 10^3/uL (1.5-5.0); MEAN CORPUSCULAR HEMOGLOBIN 25.7 pg (27.0-33.0); MEAN CORPUSCULAR HGB CONC 30.9 g/dl (32.0-36.5); MEAN CORPUSCULAR VOLUME 83.1 fl (80.0-96.0); MONO # 0.5 10^3/uL (0.0-0.8); MONO % 6.2 % (2.0-8.0); NEUTROPHILS # 5.3 10^3/uL (1.5-8.5); NEUTROPHILS % 65.6 % (36.0-66.0); PLATELET COUNT, AUTOMATED 443 10^3/uL (150-450); RED BLOOD COUNT 4.67 10^6/uL (4.00-5.40)
[2022-02-01 16:08] LABS: ERYTHROCYTE SEDIMENTATION RATE 79 mm/hr (0-20)
[2022-02-01 16:13] LABS: ALBUMIN 2.1 GM/DL (3.2-5.2); ALT/SGPT 30 U/L (12-78); BILIRUBIN,TOTAL 0.4 MG/DL (0.2-1.0); BLOOD UREA NITROGEN 8 MG/DL (7-18); CALCIUM LEVEL 8.8 MG/DL (8.5-10.1); CARBON DIOXIDE LEVEL 32 MEQ/L (21-32); CHLORIDE LEVEL 103 MEQ/L (98-107); CREATININE FOR GFR 0.69 MG/DL (0.55-1.30); GLOMERULAR FILTRATION RATE > 60.0 (>58); GLUCOSE, FASTING 66 MG/DL (70-100); POTASSIUM SERUM 4.4 MEQ/L (3.5-5.1); SODIUM LEVEL 139 MEQ/L (136-145); TOTAL PROTEIN 6.6 GM/DL (6.4-8.2)
== END ==
LOC: M LABDRWAD 14:59
PROVIDERS: ATTEND Nurse Practitioner Family
DX: M46.46 Discitis, unspecified, lumbar region (principal); Z79.2 Long term (current) use of antibiotics

== ENCOUNTER → 2022-02-11 | Outpatient (REF) | payer OTHER ==
[2022-02-11 17:30] LABS: BASO # 0.1 10^3/uL (0.0-0.2); BASO % 1.2 % (0.0-1.0); EOS # 0.5 10^3/uL (0.0-0.5); EOS % 5.2 % (0.0-3.0); HEMATOCRIT 42.8 % (36.0-47.0); HEMOGLOBIN 13.4 g/dl (12.0-15.5); LYMPH # 2.7 10^3/uL (1.5-5.0); LYMPH % 26.2 % (24.0-44.0); MEAN CORPUSCULAR HGB CONC 31.3 g/dl (32.0-36.5); MEAN CORPUSCULAR VOLUME 83.1 fl (80.0-96.0); MONO # 0.6 10^3/uL (0.0-0.8); MONO % 5.9 % (2.0-8.0); NEUTROPHILS # 6.2 10^3/uL (1.5-8.5); NEUTROPHILS % 61.1 % (36.0-66.0); PLATELET COUNT, AUTOMATED 298 10^3/uL (150-450); RED BLOOD COUNT 5.15 10^6/uL (4.00-5.40); WHITE BLOOD COUNT 10.1 10^3/uL (4.0-10.0)
[2022-02-11 17:50] LABS: ALBUMIN 2.8 GM/DL (3.2-5.2); ALT/SGPT 12 U/L (12-78); BILIRUBIN,TOTAL 0.4 MG/DL (0.2-1.0); BLOOD UREA NITROGEN 12 MG/DL (7-18); C REACTIVE PROTEIN QUANTITATIV 1.49 MG/DL (0.00-0.30); CALCIUM LEVEL 9.2 MG/DL (8.5-10.1); CARBON DIOXIDE LEVEL 31 MEQ/L (21-32); CHLORIDE LEVEL 109 MEQ/L (98-107); CREATININE FOR GFR 0.73 MG/DL (0.55-1.30); GLOMERULAR FILTRATION RATE > 60.0 (>58); GLUCOSE, FASTING 90 MG/DL (70-100); POTASSIUM SERUM 4.4 MEQ/L (3.5-5.1); SODIUM LEVEL 142 MEQ/L (136-145); TOTAL PROTEIN 7.4 GM/DL (6.4-8.2)
[2022-02-11 18:24] LABS: ERYTHROCYTE SEDIMENTATION RATE 43 mm/hr (0-20)
== END ==
LOC: M LABDRWAD 17:15
PROVIDERS: ATTEND Nurse Practitioner Family
DX: M46.46 Discitis, unspecified, lumbar region (principal); Z79.2 Long term (current) use of antibiotics

== ENCOUNTER → 2022-09-06 | Outpatient (REF) | payer OTHER ==
[~2022-09-06] MED LIST changes: -RIFA300C3 PO; +RIFA300C8 PO
[2022-09-06 15:45] LABS: BASO # 0.1 10^3/uL (0.0-0.2); BASO % 0.8 % (0.0-1.0); EOS # 0.3 10^3/uL (0.0-0.5); EOS % 2.8 % (0.0-3.0); HEMATOCRIT 41.8 % (36.0-47.0); LYMPH # 3.4 10^3/uL (1.5-5.0); LYMPH % 29.4 % (24.0-44.0); MEAN CORPUSCULAR HEMOGLOBIN 27.4 pg (27.0-33.0); MEAN CORPUSCULAR HGB CONC 31.1 g/dl (32.0-36.5); MONO % 8.7 % (2.0-8.0); NEUTROPHILS # 6.6 10^3/uL (1.5-8.5); PLATELET COUNT, AUTOMATED 322 10^3/uL (150-450); RED BLOOD COUNT 4.75 10^6/uL (4.00-5.40); WHITE BLOOD COUNT 11.4 10^3/uL (4.0-10.0)
[2022-09-06 16:17] LABS: ERYTHROCYTE SEDIMENTATION RATE 35 mm/hr (0-20)
[2022-09-06 16:27] LABS: ALBUMIN 2.9 GM/DL (3.2-5.2); ALT/SGPT 23 U/L (12-78); BILIRUBIN,TOTAL 0.4 MG/DL (0.2-1.0); BLOOD UREA NITROGEN 15 MG/DL (7-18); CALCIUM LEVEL 8.5 MG/DL (8.5-10.1); CARBON DIOXIDE LEVEL 32 MEQ/L (21-32); CHLORIDE LEVEL 101 MEQ/L (98-107); GLOMERULAR FILTRATION RATE > 60.0 (>58); GLUCOSE, FASTING 60 MG/DL (70-100); POTASSIUM SERUM 3.9 MEQ/L (3.5-5.1); SODIUM LEVEL 138 MEQ/L (136-145); TOTAL PROTEIN 6.8 GM/DL (6.4-8.2)
== END ==
LOC: M LAB REF 14:52
PROVIDERS: ATTEND Nurse Practitioner Family
DX: T81.49XA Infection following a procedure, other surgical site, initial encounter (principal); M46.46 Discitis, unspecified, lumbar region; Z79.2 Long term (current) use of antibiotics; A49.01 Methicillin susceptible Staphylococcus aureus infection, unspecified site

== ENCOUNTER → 2022-09-06 | Outpatient (REF) | payer OTHER ==
[2022-09-06 15:41] LABS: HEMATOCRIT 43.3 % (36.0-47.0); MEAN CORPUSCULAR HEMOGLOBIN 26.9 pg (27.0-33.0); MEAN CORPUSCULAR VOLUME 89.5 fl (80.0-96.0); PLATELET COUNT, AUTOMATED 316 10^3/uL (150-450); RED BLOOD COUNT 4.84 10^6/uL (4.00-5.40); WHITE BLOOD COUNT 11.4 10^3/uL (4.0-10.0)
[2022-09-06 16:39] LABS: ALT/SGPT 23 U/L (12-78); BILIRUBIN,TOTAL 0.3 MG/DL (0.2-1.0); BLOOD UREA NITROGEN 15 MG/DL (7-18); CALCIUM LEVEL 8.4 MG/DL (8.5-10.1); CARBON DIOXIDE LEVEL 30 MEQ/L (21-32); CHLORIDE LEVEL 102 MEQ/L (98-107); CREATININE FOR GFR 0.66 MG/DL (0.55-1.30); GLOMERULAR FILTRATION RATE > 60.0 (>58); GLUCOSE, FASTING 62 MG/DL (70-100); POTASSIUM SERUM 3.9 MEQ/L (3.5-5.1); SODIUM LEVEL 137 MEQ/L (136-145)
[2022-09-06 16:40] LABS: ALBUMIN 2.8 GM/DL (3.2-5.2); CHOLESTEROL LEVEL 136 MG/DL (<200); FREE T4 0.99 NG/DL (0.76-1.46); HDL CHOLESTEROL 44 MG/DL (>40); LDL CHOLESTEROL 65 MG/DL (<100); NON-HDL-C 92 MG/DL; TOTAL PROTEIN 6.7 GM/DL (6.4-8.2); TRIGLYCERIDES LEVEL 135 MG/DL (<150)
[2022-09-06 17:36] LABS: TOTAL 25(OH) VITAMIN D 47.8 NG/ML (30.0-100.0)
[2022-09-06 19:14] LABS: HEMOGLOBIN A1c 5.5 %
== END ==
LOC: M LAB REF 14:54
PROVIDERS: ATTEND Physician Assistant
DX: F17.210 Nicotine dependence, cigarettes, uncomplicated (principal); N32.81 Overactive bladder; E55.9 Vitamin D deficiency, unspecified; E78.2 Mixed hyperlipidemia; Z13.1 Encounter for screening for diabetes mellitus; R35.0 Frequency of micturition

== ENCOUNTER → 2022-10-09 | Outpatient (REF) | payer OTHER ==
[2022-10-09 17:45] LABS: TOTAL PROTEIN 6.8 GM/DL (6.4-8.2)
== END ==
LOC: M LAB REF 16:29
PROVIDERS: ATTEND Physician Assistant
DX: Z12.11 Encounter for screening for malignant neoplasm of colon (principal); M54.50 Low back pain, unspecified; G89.29 Other chronic pain; E88.09 Other disorders of plasma-protein metabolism, not elsewhere classified

== ENCOUNTER → 2022-10-31 | Outpatient (REF) | payer OTHER ==
[2022-10-31 18:01] LABS: BASO # 0.1 10^3/uL (0.0-0.2); BASO % 0.6 % (0.0-1.0); EOS # 0.8 10^3/uL (0.0-0.5); EOS % 6.9 % (0.0-3.0); HEMATOCRIT 41.1 % (36.0-47.0); HEMOGLOBIN 12.4 g/dl (12.0-15.5); LYMPH # 1.6 10^3/uL (1.5-5.0); LYMPH % 14.1 % (24.0-44.0); MEAN CORPUSCULAR HEMOGLOBIN 26.3 pg (27.0-33.0); MEAN CORPUSCULAR HGB CONC 30.2 g/dl (32.0-36.5); MEAN CORPUSCULAR VOLUME 87.3 fl (80.0-96.0); MONO % 9.1 % (2.0-8.0); NEUTROPHILS # 7.9 10^3/uL (1.5-8.5); NEUTROPHILS % 68.9 % (36.0-66.0); PLATELET COUNT, AUTOMATED 395 10^3/uL (150-450); RED BLOOD COUNT 4.71 10^6/uL (4.00-5.40); WHITE BLOOD COUNT 11.4 10^3/uL (4.0-10.0)
[2022-10-31 18:09] LABS: ALBUMIN 2.6 G/DL (3.2-5.2); ALKALINE PHOSPHATASE 94 U/L (46-116); ALT/SGPT 17 U/L (7.0-40); AST/SGOT 13 U/L (<34); BILIRUBIN,TOTAL 0.3 MG/DL (0.3-1.2); BLOOD UREA NITROGEN 13 MG/DL (9-23); CARBON DIOXIDE LEVEL 30 MMOL/L (20-31); CHLORIDE LEVEL 102 MMOL/L (98-107); CREATININE FOR GFR 0.47 MG/DL (0.55-1.30); GLOMERULAR FILTRATION RATE > 60.0 (>58); GLUCOSE, FASTING 107 MG/DL (60-100); POTASSIUM SERUM 4.7 MMOL/L (3.5-5.1); SODIUM LEVEL 138 MMOL/L (136-145); TOTAL PROTEIN 6.5 G/DL (5.7-8.2)
[2022-10-31 18:11] LABS: INR 0.96
[2022-10-31 18:12] LABS: PARTIAL THROMBOPLASTIN TIME 30.1 SECONDS (24.8-34.2)
== END ==
LOC: M SFHCADAM 14:47
PROVIDERS: ATTEND Physician Assistant
DX: Z01.818 Encounter for other preprocedural examination (principal)

== ENCOUNTER → 2022-10-31 | Outpatient (CLI) | payer OTHER | LOC: M LABSMTC 11:41 | PROVIDERS: ATTEND Orthopaedic Surgery Orthopaedic Surgery of the Spine | DX: Z20.822 Contact with and (suspected) exposure to COVID-19 (principal) ==

== ENCOUNTER → 2022-12-02 | Outpatient (REF) | payer OTHER ==
[2022-12-02 12:09] LABS: HEMATOCRIT 33.9 % (36.0-47.0); HEMOGLOBIN 10.4 g/dl (12.0-15.5); MEAN CORPUSCULAR HEMOGLOBIN 27.2 pg (27.0-33.0); MEAN CORPUSCULAR HGB CONC 30.7 g/dl (32.0-36.5); MEAN CORPUSCULAR VOLUME 88.7 fl (80.0-96.0); PLATELET COUNT, AUTOMATED 281 10^3/uL (150-450); RED BLOOD COUNT 3.82 10^6/uL (4.00-5.40); WHITE BLOOD COUNT 7.7 10^3/uL (4.0-10.0)
[2022-12-02 12:37] LABS: ALBUMIN 2.8 G/DL (3.2-5.2); ALKALINE PHOSPHATASE 114 U/L (46-116); ALT/SGPT 16 U/L (7.0-40); AST/SGOT 24 U/L (<34); BILIRUBIN,TOTAL 0.3 MG/DL (0.3-1.2); BLOOD UREA NITROGEN 6 MG/DL (9-23); CALCIUM LEVEL 8.4 MG/DL (8.5-10.1); CARBON DIOXIDE LEVEL 28 MMOL/L (20-31); CHLORIDE LEVEL 104 MMOL/L (98-107); GLOMERULAR FILTRATION RATE > 60.0 (>58); GLUCOSE, FASTING 102 MG/DL (60-100); POTASSIUM SERUM 4.1 MMOL/L (3.5-5.1); SODIUM LEVEL 138 MMOL/L (136-145)
[2022-12-02 13:10] LABS: ERYTHROCYTE SEDIMENTATION RATE 57 mm/hr (0-20)
== END ==
LOC: M SHH 11:41
PROVIDERS: ATTEND Internal Medicine Infectious Disease
DX: T81.49XA Infection following a procedure, other surgical site, initial encounter (principal)

== ENCOUNTER → 2022-12-06 | Outpatient (CLI) | payer OTHER ==
[~2022-12-06] MED LIST changes: +LIDOCAINE 1% MDV 20ML VIAL As Ordered ONE
[2022-12-06 13:40] VITALS: BP 160/70
== END ==
LOC: M IRPRO 12:43
PROVIDERS: ATTEND Internal Medicine Infectious Disease
DX: A49.01 Methicillin susceptible Staphylococcus aureus infection, unspecified site (principal); M48.062 Spinal stenosis, lumbar region with neurogenic claudication; T84.7XXD Infection and inflammatory reaction due to other internal orthopedic prosthetic devices, implants and grafts, subsequent encounter; Z74.09 Other reduced mobility; Z78.9 Other specified health status; M54.16 Radiculopathy, lumbar region; M96.1 Postlaminectomy syndrome, not elsewhere classified; T81.49XA Infection following a procedure, other surgical site, initial encounter
CPT/HCPCS: 36571; 76937; C1751

== ENCOUNTER → 2022-12-16 | Outpatient (REF) | payer OTHER ==
[~2022-12-16] MED LIST changes: -LIDOCAINE 1% MDV 20ML VIAL As Ordered ONE
[2022-12-16 15:58] LABS: BASO # 0.1 10^3/uL (0.0-0.2); BASO % 0.7 % (0.0-1.0); EOS # 0.5 10^3/uL (0.0-0.5); EOS % 5.6 % (0.0-3.0); HEMATOCRIT 38.5 % (36.0-47.0); HEMOGLOBIN 11.8 g/dl (12.0-15.5); LYMPH # 1.8 10^3/uL (1.5-5.0); LYMPH % 21.4 % (24.0-44.0); MEAN CORPUSCULAR HEMOGLOBIN 26.7 pg (27.0-33.0); MEAN CORPUSCULAR HGB CONC 30.6 g/dl (32.0-36.5); MEAN CORPUSCULAR VOLUME 87.1 fl (80.0-96.0); MONO # 0.9 10^3/uL (0.0-0.8); MONO % 10.7 % (2.0-8.0); NEUTROPHILS # 5.2 10^3/uL (1.5-8.5); NEUTROPHILS % 61.4 % (36.0-66.0); PLATELET COUNT, AUTOMATED 253 10^3/uL (150-450); RED BLOOD COUNT 4.42 10^6/uL (4.00-5.40); WHITE BLOOD COUNT 8.4 10^3/uL (4.0-10.0)
[2022-12-16 17:03] LABS: ERYTHROCYTE SEDIMENTATION RATE 66 mm/hr (0-20)
== END ==
LOC: M SHH 15:11
PROVIDERS: ATTEND Internal Medicine Infectious Disease
DX: Z00.00 Encounter for general adult medical examination without abnormal findings (principal)

== ENCOUNTER → 2023-02-06 | Outpatient (REF) | payer OTHER ==
[2023-02-06 19:39] LABS: BASO # 0.1 10^3/uL (0.0-0.2); BASO % 0.9 % (0.0-1.0); EOS # 0.6 10^3/uL (0.0-0.5); EOS % 5.5 % (0.0-3.0); HEMOGLOBIN 13.3 g/dl (12.0-15.5); LYMPH # 2.7 10^3/uL (1.5-5.0); LYMPH % 24.3 % (24.0-44.0); MEAN CORPUSCULAR HEMOGLOBIN 25.3 pg (27.0-33.0); MEAN CORPUSCULAR HGB CONC 30.2 g/dl (32.0-36.5); MEAN CORPUSCULAR VOLUME 83.8 fl (80.0-96.0); NEUTROPHILS # 6.7 10^3/uL (1.5-8.5); PLATELET COUNT, AUTOMATED 294 10^3/uL (150-450); RED BLOOD COUNT 5.25 10^6/uL (4.00-5.40); WHITE BLOOD COUNT 11.1 10^3/uL (4.0-10.0)
[2023-02-06 19:52] LABS: ERYTHROCYTE SEDIMENTATION RATE 63 mm/hr (0-20)
== END ==
LOC: M LABDRWAD 16:06
PROVIDERS: ATTEND Internal Medicine Infectious Disease
DX: T84.7XXD Infection and inflammatory reaction due to other internal orthopedic prosthetic devices, implants and grafts, subsequent encounter (principal); A49.01 Methicillin susceptible Staphylococcus aureus infection, unspecified site; Y83.6 Removal of other organ (partial) (total) as the cause of abnormal reaction of the patient, or of later complication, without mention of misadventure at the time of the procedure

== ENCOUNTER → 2023-02-06 | Outpatient (REF) | payer OTHER ==
[2023-02-06 16:12] LABS: BASO # 0.1 10^3/uL (0.0-0.2); BASO % 0.8 % (0.0-1.0); EOS # 0.5 10^3/uL (0.0-0.5); EOS % 4.9 % (0.0-3.0); HEMATOCRIT 44.7 % (36.0-47.0); HEMOGLOBIN 13.4 g/dl (12.0-15.5); LYMPH # 2.6 10^3/uL (1.5-5.0); LYMPH % 23.8 % (24.0-44.0); MEAN CORPUSCULAR HEMOGLOBIN 25.2 pg (27.0-33.0); MONO % 8.9 % (2.0-8.0); NEUTROPHILS # 6.7 10^3/uL (1.5-8.5); NEUTROPHILS % 61.4 % (36.0-66.0); PLATELET COUNT, AUTOMATED 301 10^3/uL (150-450); RED BLOOD COUNT 5.32 10^6/uL (4.00-5.40); WHITE BLOOD COUNT 10.9 10^3/uL (4.0-10.0)
[2023-02-06 16:45] LABS: FERRITIN 16.9 NG/ML (7.3-270.7); FREE T4 0.86 NG/DL (0.89-1.76)
[2023-02-06 16:46] LABS: ALBUMIN 3.3 G/DL (3.2-5.2); ALKALINE PHOSPHATASE 112 U/L (46-116); ALT/SGPT 14 U/L (7.0-40); AST/SGOT 16 U/L (<34); BILIRUBIN,TOTAL 0.3 MG/DL (0.3-1.2); BLOOD UREA NITROGEN 13 MG/DL (9-23); CALCIUM LEVEL 8.9 MG/DL (8.5-10.1); CARBON DIOXIDE LEVEL 32 MMOL/L (20-31); CHLORIDE LEVEL 102 MMOL/L (98-107); CREATININE FOR GFR 0.72 MG/DL (0.55-1.30); GLOMERULAR FILTRATION RATE > 60.0 (>58); GLUCOSE, FASTING 101 MG/DL (60-100); IRON (FE) 45 UG/DL (50-170); POTASSIUM SERUM 4.8 MMOL/L (3.5-5.1); SODIUM LEVEL 139 MMOL/L (136-145); THYROID STIMULATING HORMONE 2.129 uIU/ML (0.55-4.78); TOTAL 25(OH) VITAMIN D 45.9 NG/ML (20.0-100.0); TOTAL PROTEIN 6.8 G/DL (5.7-8.2)
[2023-02-06 16:47] LABS: FOLATE 11.5 NG/ML (>5.4)
[2023-02-06 16:48] LABS: VITAMIN B12 LEVEL 465 PG/ML (211-911)
== END ==
LOC: M SFHCADAM 13:43
PROVIDERS: ATTEND Physician Assistant
DX: D64.9 Anemia, unspecified (principal); E55.9 Vitamin D deficiency, unspecified

== ENCOUNTER → 2023-04-25 | Outpatient (REF) | payer OTHER ==
[~2023-04-25] MED LIST changes: +POTA-298 PO; -POTA1TAB14 PO
[2023-04-25 16:43] LABS: HEMATOCRIT 48.8 % (36.0-47.0); HEMOGLOBIN 15.2 g/dl (12.0-15.5); MEAN CORPUSCULAR HEMOGLOBIN 26.5 pg (27.0-33.0); MEAN CORPUSCULAR HGB CONC 31.1 g/dl (32.0-36.5); PLATELET COUNT, AUTOMATED 288 10^3/uL (150-450); RED BLOOD COUNT 5.74 10^6/uL (4.00-5.40); WHITE BLOOD COUNT 10.6 10^3/uL (4.0-10.0)
[2023-04-25 16:47] LABS: PERCENT SATURATION 12.6 % (13.2-45.0)
[2023-04-25 16:53] LABS: FREE T4 0.87 NG/DL (0.89-1.76)
[2023-04-25 17:20] LABS: THYROID STIMULATING HORMONE 1.814 uIU/ML (0.55-4.78)
== END ==
LOC: M SFHCADAM 13:23
PROVIDERS: ATTEND Physician Assistant
DX: E03.9 Hypothyroidism, unspecified (principal)

== ENCOUNTER → 2023-04-25 | Outpatient (REF) | payer OTHER ==
[2023-04-25 16:47] LABS: BASO # 0.1 10^3/uL (0.0-0.2); EOS # 0.7 10^3/uL (0.0-0.5); EOS % 6.6 % (0.0-3.0); HEMATOCRIT 48.9 % (36.0-47.0); HEMOGLOBIN 15.1 g/dl (12.0-15.5); LYMPH # 2.4 10^3/uL (1.5-5.0); LYMPH % 23.7 % (24.0-44.0); MEAN CORPUSCULAR HEMOGLOBIN 26.4 pg (27.0-33.0); MEAN CORPUSCULAR HGB CONC 30.9 g/dl (32.0-36.5); MEAN CORPUSCULAR VOLUME 85.3 fl (80.0-96.0); MONO # 0.7 10^3/uL (0.0-0.8); MONO % 6.5 % (2.0-8.0); NEUTROPHILS # 6.3 10^3/uL (1.5-8.5); PLATELET COUNT, AUTOMATED 295 10^3/uL (150-450); RED BLOOD COUNT 5.73 10^6/uL (4.00-5.40); WHITE BLOOD COUNT 10.2 10^3/uL (4.0-10.0)
[2023-04-25 16:49] LABS: ALBUMIN 3.4 G/DL (3.2-5.2); ALKALINE PHOSPHATASE 117 U/L (46-116); ALT/SGPT 20 U/L (7.0-40); AST/SGOT 14 U/L (<34); BILIRUBIN,TOTAL 0.5 MG/DL (0.3-1.2); BLOOD UREA NITROGEN 9 MG/DL (9-23); CARBON DIOXIDE LEVEL 29 MMOL/L (20-31); CHLORIDE LEVEL 101 MMOL/L (98-107); CREATININE FOR GFR 0.69 MG/DL (0.55-1.30); GLOMERULAR FILTRATION RATE > 60.0 (>58); GLUCOSE, FASTING 106 MG/DL (60-100); POTASSIUM SERUM 4.2 MMOL/L (3.5-5.1); SODIUM LEVEL 138 MMOL/L (136-145); TOTAL PROTEIN 6.9 G/DL (5.7-8.2)
[2023-04-25 18:01] LABS: ERYTHROCYTE SEDIMENTATION RATE 69 mm/hr (0-20)
== END ==
LOC: M LABDRWAD 15:58
PROVIDERS: ATTEND Internal Medicine Infectious Disease
DX: Z79.2 Long term (current) use of antibiotics (principal); M48.062 Spinal stenosis, lumbar region with neurogenic claudication; A49.01 Methicillin susceptible Staphylococcus aureus infection, unspecified site; T84.7XXD Infection and inflammatory reaction due to other internal orthopedic prosthetic devices, implants and grafts, subsequent encounter

== ENCOUNTER → 2023-06-11 | Outpatient (CLI) | payer OTHER | LOC: M ADAMS 10:59 | PROVIDERS: ATTEND Physician Assistant | DX: R40.0 Somnolence (principal) ==

== ENCOUNTER → 2023-06-11 | Outpatient (REF) | payer OTHER ==
[2023-06-11 12:58] LABS: BASO # 0.1 10^3/uL (0.0-0.2); BASO % 0.9 % (0.0-1.0); EOS # 0.7 10^3/uL (0.0-0.5); HEMOGLOBIN 15.7 g/dl (12.0-15.5); LYMPH # 2.6 10^3/uL (1.5-5.0); LYMPH % 22.8 % (24.0-44.0); MEAN CORPUSCULAR HGB CONC 31.4 g/dl (32.0-36.5); MEAN CORPUSCULAR VOLUME 89.1 fl (80.0-96.0); MONO # 0.9 10^3/uL (0.0-0.8); MONO % 7.8 % (2.0-8.0); NEUTROPHILS # 7.2 10^3/uL (1.5-8.5); NEUTROPHILS % 62.2 % (36.0-66.0); PLATELET COUNT, AUTOMATED 268 10^3/uL (150-450); RED BLOOD COUNT 5.61 10^6/uL (4.00-5.40); WHITE BLOOD COUNT 11.6 10^3/uL (4.0-10.0)
[2023-06-11 13:31] LABS: ALBUMIN 3.3 G/DL (3.2-5.2); ALKALINE PHOSPHATASE 114 U/L (46-116); ALT/SGPT 17 U/L (7.0-40); AST/SGOT 17 U/L (<34); BILIRUBIN,TOTAL 0.5 MG/DL (0.3-1.2); BLOOD UREA NITROGEN 12 MG/DL (9-23); CARBON DIOXIDE LEVEL 30 MMOL/L (20-31); CHLORIDE LEVEL 99 MMOL/L (98-107); CREATININE FOR GFR 0.68 MG/DL (0.55-1.30); GLOMERULAR FILTRATION RATE > 60.0 (>58); GLUCOSE, FASTING 90 MG/DL (60-100); POTASSIUM SERUM 4.3 MMOL/L (3.5-5.1); SODIUM LEVEL 136 MMOL/L (136-145); TOTAL PROTEIN 6.9 G/DL (5.7-8.2)
== END ==
LOC: M SFHCADAM 10:43
PROVIDERS: ATTEND Physician Assistant
DX: R40.0 Somnolence (principal); R06.02 Shortness of breath; R60.0 Localized edema

== ENCOUNTER → 2023-12-02 | Outpatient (REF) | payer OTHER ==
[~2023-12-02] MED LIST changes: -CELE1CAP7 PO; +CELE1CAP99 PO; -PREG100C; +PREG100C2; -PREG150C PO; +PREG150C2 PO
[2023-12-02 16:26] LABS: BASO # 0.1 10^3/uL (0.0-0.2); BASO % 0.9 % (0.0-1.0); EOS # 0.5 10^3/uL (0.0-0.5); EOS % 4.1 % (0.0-3.0); HEMATOCRIT 55.9 % (36.0-47.0); HEMOGLOBIN 17.6 g/dl (12.0-15.5); LYMPH # 2.7 10^3/uL (1.5-5.0); LYMPH % 21.6 % (24.0-44.0); MEAN CORPUSCULAR HEMOGLOBIN 29.6 pg (27.0-33.0); MEAN CORPUSCULAR HGB CONC 31.5 g/dl (32.0-36.5); MEAN CORPUSCULAR VOLUME 94.1 fl (80.0-96.0); MONO # 1.1 10^3/uL (0.0-0.8); MONO % 8.6 % (2.0-8.0); NEUTROPHILS # 8.1 10^3/uL (1.5-8.5); NEUTROPHILS % 64.4 % (36.0-66.0); PLATELET COUNT, AUTOMATED 255 10^3/uL (150-450); RED BLOOD COUNT 5.94 10^6/uL (4.00-5.40); WHITE BLOOD COUNT 12.5 10^3/uL (4.0-10.0)
[2023-12-02 16:51] LABS: ERYTHROCYTE SEDIMENTATION RATE 54 mm/hr (0-20)
[2023-12-02 16:55] LABS: ALBUMIN 3.4 G/DL (3.2-5.2); ALKALINE PHOSPHATASE 102 U/L (46-116); ALT/SGPT 27 U/L (7.0-40); AST/SGOT 20 U/L (<34); BILIRUBIN,TOTAL 0.4 MG/DL (0.3-1.2); BLOOD UREA NITROGEN 12 MG/DL (9-23); CALCIUM LEVEL 9.4 MG/DL (8.5-10.1); CARBON DIOXIDE LEVEL 34 MMOL/L (20-31); CHLORIDE LEVEL 100 MMOL/L (98-107); CREATININE FOR GFR 0.69 MG/DL (0.55-1.30); GLOMERULAR FILTRATION RATE > 60.0 (>58); GLUCOSE, FASTING 102 MG/DL (60-100); POTASSIUM SERUM 4.2 MMOL/L (3.5-5.1); SODIUM LEVEL 138 MMOL/L (136-145); TOTAL PROTEIN 6.8 G/DL (5.7-8.2)
== END ==
LOC: M LABDRWAD 16:06
PROVIDERS: ATTEND Nurse Practitioner
DX: T84.7XXD Infection and inflammatory reaction due to other internal orthopedic prosthetic devices, implants and grafts, subsequent encounter (principal); Z79.2 Long term (current) use of antibiotics

== ENCOUNTER → 2023-12-18 | Outpatient (CLI) | payer OTHER | LOC: M WHC 10:14 | PROVIDERS: ATTEND Physician Assistant | DX: Z12.31 Encounter for screening mammogram for malignant neoplasm of breast (principal) ==

== ENCOUNTER → 2024-02-04 | Outpatient (REF) | payer OTHER ==
[2024-02-04 14:51] LABS: BASO % 0.4 % (0.0-1.0); EOS # 0.8 10^3/uL (0.0-0.5); EOS % 9.1 % (0.0-3.0); HEMATOCRIT 50.9 % (36.0-47.0); HEMOGLOBIN 16.2 g/dl (12.0-15.5); LYMPH # 1.9 10^3/uL (1.5-5.0); MEAN CORPUSCULAR HEMOGLOBIN 30.7 pg (27.0-33.0); MEAN CORPUSCULAR HGB CONC 31.8 g/dl (32.0-36.5); MEAN CORPUSCULAR VOLUME 96.4 fl (80.0-96.0); MONO # 0.8 10^3/uL (0.0-0.8); MONO % 9.6 % (2.0-8.0); NEUTROPHILS # 4.8 10^3/uL (1.5-8.5); NEUTROPHILS % 57.7 % (36.0-66.0); PLATELET COUNT, AUTOMATED 212 10^3/uL (150-450); RED BLOOD COUNT 5.28 10^6/uL (4.00-5.40); WHITE BLOOD COUNT 8.3 10^3/uL (4.0-10.0)
[2024-02-04 15:03] LABS: ERYTHROCYTE SEDIMENTATION RATE 59 mm/hr (0-20)
[2024-02-04 15:20] LABS: ALBUMIN 2.8 G/DL (3.2-5.2); ALKALINE PHOSPHATASE 101 U/L (46-116); ALT/SGPT 29 U/L (7.0-40); AST/SGOT 49 U/L (<34); BILIRUBIN,TOTAL 0.7 MG/DL (0.3-1.2); BLOOD UREA NITROGEN 11 MG/DL (9-23); CALCIUM LEVEL 7.9 MG/DL (8.5-10.1); CARBON DIOXIDE LEVEL 29 MMOL/L (20-31); CHLORIDE LEVEL 100 MMOL/L (98-107); GLOMERULAR FILTRATION RATE > 60.0 (>58); GLUCOSE, FASTING 137 MG/DL (60-100); POTASSIUM SERUM 3.5 MMOL/L (3.5-5.1); SODIUM LEVEL 136 MMOL/L (136-145); TOTAL PROTEIN 6.5 G/DL (5.7-8.2)
== END ==
LOC: M LABDRWAD 13:31
PROVIDERS: ATTEND Nurse Practitioner
DX: T84.7XXD Infection and inflammatory reaction due to other internal orthopedic prosthetic devices, implants and grafts, subsequent encounter (principal); Y83.1 Surgical operation with implant of artificial internal device as the cause of abnormal reaction of the patient, or of later complication, without mention of misadventure at the time of the procedure

== ENCOUNTER 2024-02-24 16:18 | Inpatient (IN) | payer OTHER, SELFPAY ==
[~2024-02-24] VITALS: Ht 165.1 cm; Wt 150.0 kg
[~2024-02-24 16:18] MED LIST changes: +RIFA300C62 PO; -RIFA300C8 PO
[2024-02-24 16:47] LABS: VENOUS HCO3 34.1 MMOL/L (23.0-27.0); VENOUS O2 SATURATION 81.4 % (60.0-80.0); VENOUS PARTIAL PRESSURE CO2 69.5 mmHg (38.0-50.0); VENOUS PARTIAL PRESSURE O2 46.6 mmHg (30.0-50.0); VENOUS PH 7.309 UNITS (7.330-7.430); VENOUS STANDARD HCO3 28.4 MMOL/L; VENOUS TOTAL CO2 36.3 MMOL/L (24.0-28.0)
[2024-02-24 17:11] LABS: BASO # 0.1 10^3/uL (0.0-0.2); BASO % 0.7 % (0.0-1.0); EOS % 8.4 % (0.0-3.0); HEMOGLOBIN 15.9 g/dl (12.0-15.5); LYMPH # 2.6 10^3/uL (1.5-5.0); LYMPH % 22.5 % (24.0-44.0); MEAN CORPUSCULAR HEMOGLOBIN 30.7 pg (27.0-33.0); MEAN CORPUSCULAR HGB CONC 31.8 g/dl (32.0-36.5); MEAN CORPUSCULAR VOLUME 96.5 fl (80.0-96.0); MONO # 0.9 10^3/uL (0.0-0.8); MONO % 7.9 % (2.0-8.0); NEUTROPHILS # 6.8 10^3/uL (1.5-8.5); NEUTROPHILS % 60.1 % (36.0-66.0); PLATELET COUNT, AUTOMATED 262 10^3/uL (150-450); RED BLOOD COUNT 5.18 10^6/uL (4.00-5.40); WHITE BLOOD COUNT 11.3 10^3/uL (4.0-10.0)
[2024-02-24] MEDS ORDERED: LOSA50TA28 PO (17:23)
[2024-02-24] MEDS ORDERED: LEVO88TA3 PO (17:23)
[2024-02-24] MEDS ORDERED: HYDR-3490 PO (17:23)
[2024-02-24] MEDS ORDERED: PREG200C2 PO (17:23)
[2024-02-24] MEDS ORDERED: FERR325T19 PO (17:23)
[2024-02-24 17:25] LABS: CK-MB VALUE MASS 3.5 NG/ML (<3.6)
[2024-02-24] MEDS: methylPREDNISolone 125MG 2ML VIAL IV ONE (17:26)
[2024-02-24] MEDS: cefTRIAXone SOD 1 GM in D5W MINI-BAG PLUS 50 ML IV ONE (17:26)
[2024-02-24 17:27] LABS: ALBUMIN 3.2 G/DL (3.2-5.2); ALKALINE PHOSPHATASE 116 U/L (46-116); ALT/SGPT 27 U/L (7.0-40); AST/SGOT 26 U/L (<34); BILIRUBIN,DIRECT 0.2 MG/DL (<0.4); BILIRUBIN,TOTAL 0.5 MG/DL (0.3-1.2); BLOOD UREA NITROGEN 10 MG/DL (9-23); CALCIUM LEVEL 8.7 MG/DL (8.5-10.1); CARBON DIOXIDE LEVEL 33 MMOL/L (20-31); CHLORIDE LEVEL 102 MMOL/L (98-107); CREATININE FOR GFR 0.72 MG/DL (0.55-1.30); GLOMERULAR FILTRATION RATE > 60.0 (>58); GLUCOSE, FASTING 93 MG/DL (60-100); POTASSIUM SERUM 4.5 MMOL/L (3.5-5.1); SODIUM LEVEL 140 MMOL/L (136-145); TOTAL PROTEIN 6.9 G/DL (5.7-8.2)
[2024-02-24 17:29] LABS: THYROID STIMULATING HORMONE 1.663 uIU/ML (0.55-4.78); THYROXINE (T4) 9.1 UG/DL (4.5-10.9)
[2024-02-24 17:33] LABS: CPK CREATINE PHOSPHOKINASE 96 U/L (34-145); MB/CK RELATIVE INDEX 3.64 (< OR =4)
[2024-02-24] MEDS: IPRATROPIUM 0.5MG/ALBUTEROL 2.5MG INH SOL UD 3ML (DUONEB) NEB ONE (17:43)
[2024-02-24 18:00] LABS: PROCALCITONIN 0.06 ng/ml
[2024-02-24] MEDS: DOXYCYCLINE HYCLATE 100 MG in D5W MINI-BAG PLUS 100 ML IV ONE (18:51)
[2024-02-24] MEDS ORDERED: ALBUTEROL SULFATE 2.5MG/0.5ML INH NEB SOLN NEB PRN (19:30)
[2024-02-24] MEDS ORDERED: LURA80TA PO (20:51)
[2024-02-24] MEDS ORDERED: HOME MED LIST COMPLETE! XX SCH (20:55)
[2024-02-25] VITALS (7 sets, daily range): BP systolic 106–156; BP diastolic 57–84; TEMP 97–101.6; O2SAT 92–94
[2024-02-25] MEDS: IPRATROPIUM 0.5MG/ALBUTEROL 2.5MG INH SOL UD 3ML (DUONEB) NEB SCH (01:22)
[2024-02-25] MEDS: methylPREDNISolone 40MG 1ML VIAL IV SCH (01:48)
[2024-02-25] MEDS: HEPARIN SOD (PORCINE) 5000UNITS/ML 1ML VIAL/SYRINGE SC SCH (06:01)
[2024-02-25 07:11] LABS: BLOOD UREA NITROGEN 13 MG/DL (9-23); CALCIUM LEVEL 9.2 MG/DL (8.5-10.1); CARBON DIOXIDE LEVEL 34 MMOL/L (20-31); CHLORIDE LEVEL 101 MMOL/L (98-107); CREATININE FOR GFR 0.59 MG/DL (0.55-1.30); GLOMERULAR FILTRATION RATE > 60.0 (>58); GLUCOSE, FASTING 159 MG/DL (60-100); POTASSIUM SERUM 4.5 MMOL/L (3.5-5.1); SODIUM LEVEL 139 MMOL/L (136-145)
[2024-02-25] MEDS ORDERED: CelecoXIB (CeleBREX) 100 MG CAP PO PRN (07:15)
[2024-02-25] MEDS: VITAMIN D 1,000 INTERNATIONAL UNITS TABLET PO SCH (08:50)
[2024-02-25] MEDS: PREGABALIN 100 MG CAP (LYRICA) PO SCH (08:50)
[2024-02-25] MEDS: DOXYCYCLINE HYCLATE 100MG TABLET PO SCH (08:50)
[2024-02-25] MEDS: DULoxetine 30MG CAPSULE (CYMBALTA) PO SCH (08:50)
[2024-02-25] MEDS: LURASIDONE HCL 40MG TAB (LATUDA) PO SCH (08:50)
[2024-02-25] MEDS: LOSARTAN 50MG TABLET PO SCH (08:50)
[2024-02-25] MEDS: LEVOTHYROXINE 88MCG TABLET (0.088 MG) PO SCH (09:01)
[2024-02-25 20:06] LABS: VENOUS BASE EXCESS 9.2 (-2.0-2.0); VENOUS HCO3 36.4 MMOL/L (23.0-27.0); VENOUS O2 SATURATION 95.7 % (60.0-80.0); VENOUS PARTIAL PRESSURE CO2 58.3 mmHg (38.0-50.0); VENOUS PARTIAL PRESSURE O2 76.2 mmHg (30.0-50.0); VENOUS PH 7.413 UNITS (7.330-7.430); VENOUS TOTAL CO2 38.2 MMOL/L (24.0-28.0)
[2024-02-25] MEDS: FERROUS SULFATE 325MG TAB PO SCH (20:44)
[2024-02-25] MEDS: ACETAMINOPHEN TAB 650MG DOSE (2X325MG) PO PRN (20:46)
[2024-02-25] MEDS: cefTRIAXone SOD 1 GM in D5W MINI-BAG PLUS 50 ML IV SCH (21:18)
[2024-02-26] VITALS (7 sets, daily range): BP systolic 96–135; BP diastolic 55–77; TEMP 96.8–98.2; O2SAT 87–96
[2024-02-26] MEDS ORDERED: ISOVUE-370 76% 100ML VIAL As Ordered ONE (08:00)
[2024-02-26 08:27] LABS: BASO % 0.2 % (0.0-1.0); EOS % 0.1 % (0.0-3.0); HEMATOCRIT 50.8 % (36.0-47.0); LYMPH # 1.5 10^3/uL (1.5-5.0); LYMPH % 8.7 % (24.0-44.0); MEAN CORPUSCULAR HEMOGLOBIN 30.4 pg (27.0-33.0); MEAN CORPUSCULAR HGB CONC 31.5 g/dl (32.0-36.5); MEAN CORPUSCULAR VOLUME 96.4 fl (80.0-96.0); MONO # 0.5 10^3/uL (0.0-0.8); MONO % 2.8 % (2.0-8.0); NEUTROPHILS # 15.3 10^3/uL (1.5-8.5); NEUTROPHILS % 87.3 % (36.0-66.0); PLATELET COUNT, AUTOMATED 283 10^3/uL (150-450); RED BLOOD COUNT 5.27 10^6/uL (4.00-5.40); WHITE BLOOD COUNT 17.6 10^3/uL (4.0-10.0)
[2024-02-26 08:51] LABS: BLOOD UREA NITROGEN 18 MG/DL (9-23); CALCIUM LEVEL 9.2 MG/DL (8.5-10.1); CARBON DIOXIDE LEVEL 36 MMOL/L (20-31); CHLORIDE LEVEL 100 MMOL/L (98-107); CREATININE FOR GFR 0.67 MG/DL (0.55-1.30); GLOMERULAR FILTRATION RATE > 60.0 (>58); GLUCOSE, FASTING 141 MG/DL (60-100); POTASSIUM SERUM 4.9 MMOL/L (3.5-5.1); SODIUM LEVEL 141 MMOL/L (136-145)
[2024-02-26 11:10] LABS: INR 1.08; PARTIAL THROMBOPLASTIN TIME 24.4 SECONDS (24.8-34.2); PROTHROMBIN TIME 13.7 SECONDS (12.5-14.5)
[2024-02-26] MEDS: RIVAROXABAN 10MG TAB (XARELTO) PO SCH (18:43)
[2024-02-26] MEDS: methylPREDNISolone 40MG 1ML VIAL IV SCH (20:41)
[2024-02-27] MEDS: LEVOTHYROXINE 88MCG TABLET (0.088 MG) PO SCH (06:20)
[2024-02-27 06:23] VITALS: BP 138/61; TEMP 96.2; O2SAT 93
[2024-02-27 08:42] LABS: BASO % 0.3 % (0.0-1.0); HEMATOCRIT 54.1 % (36.0-47.0); HEMOGLOBIN 16.8 g/dl (12.0-15.5); LYMPH # 2.1 10^3/uL (1.5-5.0); LYMPH % 14.6 % (24.0-44.0); MEAN CORPUSCULAR HEMOGLOBIN 30.4 pg (27.0-33.0); MEAN CORPUSCULAR HGB CONC 31.1 g/dl (32.0-36.5); MEAN CORPUSCULAR VOLUME 97.8 fl (80.0-96.0); MONO # 0.9 10^3/uL (0.0-0.8); NEUTROPHILS # 11.1 10^3/uL (1.5-8.5); NEUTROPHILS % 78.3 % (36.0-66.0); PLATELET COUNT, AUTOMATED 246 10^3/uL (150-450); RED BLOOD COUNT 5.53 10^6/uL (4.00-5.40); WHITE BLOOD COUNT 14.2 10^3/uL (4.0-10.0)
[2024-02-27 09:04] LABS: BLOOD UREA NITROGEN 22 MG/DL (9-23); CARBON DIOXIDE LEVEL 39 MMOL/L (20-31); CHLORIDE LEVEL 97 MMOL/L (98-107); GLOMERULAR FILTRATION RATE > 60.0 (>58); GLUCOSE, FASTING 117 MG/DL (60-100); POTASSIUM SERUM 4.4 MMOL/L (3.5-5.1); SODIUM LEVEL 140 MMOL/L (136-145)
[2024-02-27 09:06] VITALS: BP 140/82
[2024-02-27 09:08] LABS: PROCALCITONIN <0.04 ng/ml
[2024-02-27 09:12] LABS: ERYTHROCYTE SEDIMENTATION RATE 72 mm/hr (0-20)
[2024-02-27] MEDS ORDERED: DOXY-444 PO (11:36)
[2024-02-27] MEDS ORDERED: PRED50TA PO (11:39)
[2024-02-27] MEDS ORDERED: SPIR1CAP INH (11:41)
[2024-02-27 14:00] VITALS: BP 117/70; TEMP 97.6; O2SAT 92
[2024-03-01 17:07] LABS: BODY FLUID CULTURE Not indicated. (.); LEGIONELLA ANTIGEN URINE Negative (Negative); ORGANISM ID Not indicated. (.); SPECIMEN SOURCE Urine (.); URINE STREP PNEUMONIAE ANTIGEN Negative (Negative)
== END 2024-02-27 16:20 | disposition home health service (06) | DRG 140 ==
LOC: M ED 16:18 → M ED INP 19:27 → M MS4PR 02-25 13:21
PROVIDERS: ADMIT Internal Medicine; ATTEND Student in an Organized Health Care Education/Training Program
DX: J44.1 Chronic obstructive pulmonary disease with (acute) exacerbation (principal); J96.21 Acute and chronic respiratory failure with hypoxia; J18.9 Pneumonia, unspecified organism; E66.2 Morbid (severe) obesity with alveolar hypoventilation; D75.1 Secondary polycythemia; Z68.43 Body mass index [BMI] 50.0-59.9, adult; F17.210 Nicotine dependence, cigarettes, uncomplicated; I10 Essential (primary) hypertension; D50.9 Iron deficiency anemia, unspecified; F31.9 Bipolar disorder, unspecified; J20.9 Acute bronchitis, unspecified; J44.0 Chronic obstructive pulmonary disease with (acute) lower respiratory infection; E03.9 Hypothyroidism, unspecified; M54.9 Dorsalgia, unspecified; Z90.49 Acquired absence of other specified parts of digestive tract; Z79.899 Other long term (current) drug therapy; Z79.890 Hormone replacement therapy

== ENCOUNTER → 2024-03-04 | Outpatient (REF) | payer OTHER ==
[~2024-03-04] MED LIST changes: +DOXY-444 PO; +FERR325T19 PO; +HYDR-3490 PO; +LEVO88TA3 PO; +LOSA50TA28 PO; +LURA80TA PO; +PRED50TA PO; +PREG200C2 PO; +SPIR1CAP INH
[2024-03-04 13:59] LABS: BASO # 0.1 10^3/uL (0.0-0.2); BASO % 0.4 % (0.0-1.0); EOS # 0.1 10^3/uL (0.0-0.5); EOS % 0.8 % (0.0-3.0); HEMATOCRIT 49.2 % (36.0-47.0); HEMOGLOBIN 15.7 g/dl (12.0-15.5); LYMPH # 3.5 10^3/uL (1.5-5.0); LYMPH % 25.2 % (24.0-44.0); MEAN CORPUSCULAR HGB CONC 31.9 g/dl (32.0-36.5); MONO % 6.8 % (2.0-8.0); NEUTROPHILS # 9.2 10^3/uL (1.5-8.5); NEUTROPHILS % 66.3 % (36.0-66.0); PLATELET COUNT, AUTOMATED 201 10^3/uL (150-450); RED BLOOD COUNT 5.07 10^6/uL (4.00-5.40); WHITE BLOOD COUNT 13.9 10^3/uL (4.0-10.0)
[2024-03-04 14:08] LABS: ALKALINE PHOSPHATASE 83 U/L (46-116); ALT/SGPT 28 U/L (7.0-40); AST/SGOT 11 U/L (<34); BILIRUBIN,TOTAL 0.4 MG/DL (0.3-1.2); BLOOD UREA NITROGEN 22 MG/DL (9-23); CALCIUM LEVEL 8.8 MG/DL (8.5-10.1); CARBON DIOXIDE LEVEL 31 MMOL/L (20-31); CHLORIDE LEVEL 106 MMOL/L (98-107); CREATININE FOR GFR 0.78 MG/DL (0.55-1.30); GLOMERULAR FILTRATION RATE > 60.0 (>58); GLUCOSE, FASTING 108 MG/DL (60-100); POTASSIUM SERUM 4.2 MMOL/L (3.5-5.1); SODIUM LEVEL 142 MMOL/L (136-145)
[2024-03-04 14:11] LABS: ERYTHROCYTE SEDIMENTATION RATE 35 mm/hr (0-20)
== END ==
LOC: M SFHCADAM 10:08
PROVIDERS: ATTEND Physician Assistant
DX: M54.50 Low back pain, unspecified (principal)

== ENCOUNTER → 2024-03-24 | Outpatient (CLI) | payer OTHER ==
[~2024-03-24] MED LIST changes: +DOXY-440 PO; -DOXY-444 PO
== END ==
LOC: M PLAIMG 12:53
PROVIDERS: ATTEND Physician Assistant
DX: G47.33 Obstructive sleep apnea (adult) (pediatric) (principal); J96.11 Chronic respiratory failure with hypoxia; J96.12 Chronic respiratory failure with hypercapnia

== ENCOUNTER → 2024-04-02 | Outpatient (REF) | payer OTHER ==
[2024-04-02 16:07] LABS: BASO # 0.1 10^3/uL (0.0-0.2); EOS # 0.3 10^3/uL (0.0-0.5); EOS % 2.6 % (0.0-3.0); HEMATOCRIT 55.6 % (36.0-47.0); HEMOGLOBIN 17.7 g/dl (12.0-15.5); LYMPH # 2.9 10^3/uL (1.5-5.0); LYMPH % 24.7 % (24.0-44.0); MEAN CORPUSCULAR HEMOGLOBIN 30.9 pg (27.0-33.0); MEAN CORPUSCULAR HGB CONC 31.8 g/dl (32.0-36.5); MEAN CORPUSCULAR VOLUME 97.2 fl (80.0-96.0); MONO # 0.9 10^3/uL (0.0-0.8); MONO % 7.3 % (2.0-8.0); NEUTROPHILS # 7.6 10^3/uL (1.5-8.5); NEUTROPHILS % 64.1 % (36.0-66.0); PLATELET COUNT, AUTOMATED 260 10^3/uL (150-450); RED BLOOD COUNT 5.72 10^6/uL (4.00-5.40); WHITE BLOOD COUNT 11.8 10^3/uL (4.0-10.0)
[2024-04-02 16:12] LABS: ERYTHROCYTE SEDIMENTATION RATE 49 mm/hr (0-20)
[2024-04-02 16:27] LABS: ALBUMIN 3.5 G/DL (3.2-5.2); ALKALINE PHOSPHATASE 112 U/L (46-116); ALT/SGPT 36 U/L (7.0-40); AST/SGOT 28 U/L (<34); BILIRUBIN,TOTAL 0.7 MG/DL (0.3-1.2); BLOOD UREA NITROGEN 16 MG/DL (9-23); CARBON DIOXIDE LEVEL 28 MMOL/L (20-31); CHLORIDE LEVEL 99 MMOL/L (98-107); CREATININE FOR GFR 0.78 MG/DL (0.55-1.30); GLOMERULAR FILTRATION RATE > 60.0 (>58); GLUCOSE, FASTING 97 MG/DL (60-100); POTASSIUM SERUM 3.5 MMOL/L (3.5-5.1); SODIUM LEVEL 140 MMOL/L (136-145); TOTAL PROTEIN 7.2 G/DL (5.7-8.2)
== END ==
LOC: M SHH 14:35
PROVIDERS: ATTEND Nurse Practitioner
DX: T84.7XXD Infection and inflammatory reaction due to other internal orthopedic prosthetic devices, implants and grafts, subsequent encounter (principal)

== ENCOUNTER → 2024-05-04 | Outpatient (REF) | payer OTHER ==
[2024-05-04 14:07] LABS: BASO # 0.1 10^3/uL (0.0-0.2); BASO % 0.9 % (0.0-1.0); EOS # 0.7 10^3/uL (0.0-0.5); EOS % 4.9 % (0.0-3.0); LYMPH # 3.4 10^3/uL (1.5-5.0); MEAN CORPUSCULAR HEMOGLOBIN 31.3 pg (27.0-33.0); MEAN CORPUSCULAR HGB CONC 32.7 g/dl (32.0-36.5); MEAN CORPUSCULAR VOLUME 95.8 fl (80.0-96.0); MONO # 1.3 10^3/uL (0.0-0.8); MONO % 9.7 % (2.0-8.0); NEUTROPHILS # 8.1 10^3/uL (1.5-8.5); NEUTROPHILS % 59.1 % (36.0-66.0); PLATELET COUNT, AUTOMATED 297 10^3/uL (150-450); RED BLOOD COUNT 5.66 10^6/uL (4.00-5.40); WHITE BLOOD COUNT 13.7 10^3/uL (4.0-10.0)
[2024-05-04 14:12] LABS: HEMATOCRIT 54.2 % (36.0-47.0); HEMOGLOBIN 17.7 g/dl (12.0-15.5)
[2024-05-04 14:25] LABS: ERYTHROCYTE SEDIMENTATION RATE 48 mm/hr (0-20)
[2024-05-04 14:29] LABS: ALBUMIN 3.7 G/DL (3.2-5.2); ALKALINE PHOSPHATASE 115 U/L (46-116); ALT/SGPT 30 U/L (7.0-40); AST/SGOT 23 U/L (<34); BLOOD UREA NITROGEN 16 MG/DL (9-23); CARBON DIOXIDE LEVEL 30 MMOL/L (20-31); CHLORIDE LEVEL 99 MMOL/L (98-107); GLOMERULAR FILTRATION RATE > 60.0 (>58); GLUCOSE, FASTING 93 MG/DL (60-100); POTASSIUM SERUM 4.6 MMOL/L (3.5-5.1); SODIUM LEVEL 139 MMOL/L (136-145); TOTAL PROTEIN 7.2 G/DL (5.7-8.2)
== END ==
LOC: M SHH 13:40
PROVIDERS: ATTEND Nurse Practitioner
DX: T84.7XXD Infection and inflammatory reaction due to other internal orthopedic prosthetic devices, implants and grafts, subsequent encounter (principal)

== ENCOUNTER → 2024-06-04 | Outpatient (REF) | payer OTHER ==
[2024-06-04 15:30] LABS: BASO # 0.1 10^3/uL (0.0-0.2); BASO % 1.1 % (0.0-1.0); EOS # 0.3 10^3/uL (0.0-0.5); EOS % 3.5 % (0.0-3.0); HEMATOCRIT 52.6 % (36.0-47.0); HEMOGLOBIN 17.5 g/dl (12.0-15.5); LYMPH # 1.9 10^3/uL (1.5-5.0); LYMPH % 20.4 % (24.0-44.0); MEAN CORPUSCULAR HGB CONC 33.3 g/dl (32.0-36.5); MEAN CORPUSCULAR VOLUME 93.1 fl (80.0-96.0); MONO # 0.8 10^3/uL (0.0-0.8); MONO % 8.9 % (2.0-8.0); NEUTROPHILS % 65.8 % (36.0-66.0); PLATELET COUNT, AUTOMATED 274 10^3/uL (150-450); RED BLOOD COUNT 5.65 10^6/uL (4.00-5.40); WHITE BLOOD COUNT 9.1 10^3/uL (4.0-10.0)
[2024-06-04 15:54] LABS: ERYTHROCYTE SEDIMENTATION RATE 39 mm/hr (0-20)
[2024-06-04 15:55] LABS: ALBUMIN 3.6 G/DL (3.2-5.2); ALKALINE PHOSPHATASE 244 U/L (46-116); ALT/SGPT 254 U/L (7.0-40); AST/SGOT 275 U/L (<34); BILIRUBIN,TOTAL 0.8 MG/DL (0.3-1.2); BLOOD UREA NITROGEN 11 MG/DL (9-23); CALCIUM LEVEL 8.9 MG/DL (8.5-10.1); CARBON DIOXIDE LEVEL 29 MMOL/L (20-31); CHLORIDE LEVEL 98 MMOL/L (98-107); CREATININE FOR GFR 0.76 MG/DL (0.55-1.30); GLOMERULAR FILTRATION RATE > 60.0 (>58); GLUCOSE, FASTING 104 MG/DL (60-100); POTASSIUM SERUM 4.3 MMOL/L (3.5-5.1); SODIUM LEVEL 136 MMOL/L (136-145); TOTAL PROTEIN 6.5 G/DL (5.7-8.2)
== END ==
LOC: M SHH 14:33
PROVIDERS: ATTEND Nurse Practitioner
DX: T84.7XXD Infection and inflammatory reaction due to other internal orthopedic prosthetic devices, implants and grafts, subsequent encounter (principal)

== ENCOUNTER → 2024-06-23 | Outpatient (REF) | payer OTHER ==
[2024-06-23 18:09] LABS: BASO # 0.1 10^3/uL (0.0-0.2); BASO % 0.9 % (0.0-1.0); EOS # 0.6 10^3/uL (0.0-0.5); EOS % 5.6 % (0.0-3.0); HEMATOCRIT 51.4 % (36.0-47.0); HEMOGLOBIN 16.2 g/dl (12.0-15.5); LYMPH # 2.9 10^3/uL (1.5-5.0); LYMPH % 29.1 % (24.0-44.0); MEAN CORPUSCULAR HEMOGLOBIN 30.5 pg (27.0-33.0); MEAN CORPUSCULAR HGB CONC 31.5 g/dl (32.0-36.5); MEAN CORPUSCULAR VOLUME 96.6 fl (80.0-96.0); MONO # 1.1 10^3/uL (0.0-0.8); MONO % 10.6 % (2.0-8.0); NEUTROPHILS # 5.3 10^3/uL (1.5-8.5); NEUTROPHILS % 53.6 % (36.0-66.0); PLATELET COUNT, AUTOMATED 244 10^3/uL (150-450); RED BLOOD COUNT 5.32 10^6/uL (4.00-5.40); WHITE BLOOD COUNT 9.9 10^3/uL (4.0-10.0)
[2024-06-23 18:15] LABS: ALBUMIN 3.4 G/DL (3.2-5.2); ALKALINE PHOSPHATASE 126 U/L (46-116); ALT/SGPT 30 U/L (7.0-40); AST/SGOT 17 U/L (<34); BILIRUBIN,TOTAL 0.5 MG/DL (0.3-1.2); BLOOD UREA NITROGEN 15 MG/DL (9-23); CALCIUM LEVEL 9.3 MG/DL (8.5-10.1); CARBON DIOXIDE LEVEL 31 MMOL/L (20-31); CHLORIDE LEVEL 99 MMOL/L (98-107); CREATININE FOR GFR 0.69 MG/DL (0.55-1.30); GLOMERULAR FILTRATION RATE > 60.0 (>58); GLUCOSE, FASTING 99 MG/DL (60-100); POTASSIUM SERUM 4.1 MMOL/L (3.5-5.1); SODIUM LEVEL 137 MMOL/L (136-145); TOTAL PROTEIN 6.5 G/DL (5.7-8.2)
[2024-06-23 18:19] LABS: FERRITIN 69.6 NG/ML (7.3-270.7)
[2024-06-23 18:23] LABS: HEPATITIS B SURFACE ANTIBODY NEGATIVE (POSITIVE)
[2024-06-23 18:35] LABS: HEPATITIS B SURFACE ANTIGEN NEGATIVE (NEGATIVE)
[2024-06-23 18:57] LABS: HEPATITIS C VIRUS ABY INDEX < 0.02 INDEX (<0.8)
== END ==
LOC: M SFHCADAM 12:20
PROVIDERS: ATTEND Physician Assistant
DX: R74.8 Abnormal levels of other serum enzymes (principal); M54.50 Low back pain, unspecified

== ENCOUNTER → 2024-07-02 | Outpatient (REF) | payer OTHER ==
[2024-07-02 14:48] LABS: BASO # 0.1 10^3/uL (0.0-0.2); BASO % 0.9 % (0.0-1.0); EOS # 0.7 10^3/uL (0.0-0.5); EOS % 4.4 % (0.0-3.0); HEMATOCRIT 53.1 % (36.0-47.0); HEMOGLOBIN 17.2 g/dl (12.0-15.5); LYMPH % 24.8 % (24.0-44.0); MEAN CORPUSCULAR HEMOGLOBIN 31.3 pg (27.0-33.0); MEAN CORPUSCULAR HGB CONC 32.4 g/dl (32.0-36.5); MEAN CORPUSCULAR VOLUME 96.5 fl (80.0-96.0); MONO # 1.2 10^3/uL (0.0-0.8); MONO % 7.4 % (2.0-8.0); NEUTROPHILS % 62.2 % (36.0-66.0); PLATELET COUNT, AUTOMATED 318 10^3/uL (150-450)
[2024-07-02 15:08] LABS: ALBUMIN 3.4 G/DL (3.2-5.2); ALKALINE PHOSPHATASE 126 U/L (46-116); ALT/SGPT 27 U/L (7.0-40); AST/SGOT 17 U/L (<34); BILIRUBIN,TOTAL 0.6 MG/DL (0.3-1.2); BLOOD UREA NITROGEN 12 MG/DL (9-23); CALCIUM LEVEL 9.6 MG/DL (8.5-10.1); CARBON DIOXIDE LEVEL 35 MMOL/L (20-31); CHLORIDE LEVEL 96 MMOL/L (98-107); CREATININE FOR GFR 0.85 MG/DL (0.55-1.30); GLOMERULAR FILTRATION RATE > 60.0 (>58); GLUCOSE, FASTING 92 MG/DL (60-100); POTASSIUM SERUM 4.5 MMOL/L (3.5-5.1); SODIUM LEVEL 135 MMOL/L (136-145); TOTAL PROTEIN 6.8 G/DL (5.7-8.2)
== END ==
LOC: M LAB REF 13:06 → M SHH 13:06
PROVIDERS: ATTEND Nurse Practitioner
DX: T84.7XXD Infection and inflammatory reaction due to other internal orthopedic prosthetic devices, implants and grafts, subsequent encounter (principal)

== ENCOUNTER → 2024-07-21 | Outpatient (REF) | payer OTHER ==
[2024-07-21 13:13] LABS: BASO # 0.1 10^3/uL (0.0-0.2); BASO % 0.9 % (0.0-1.0); EOS # 0.5 10^3/uL (0.0-0.5); EOS % 4.9 % (0.0-3.0); HEMATOCRIT 49.5 % (36.0-47.0); HEMOGLOBIN 16.4 g/dl (12.0-15.5); LYMPH % 21.4 % (24.0-44.0); MEAN CORPUSCULAR HEMOGLOBIN 31.2 pg (27.0-33.0); MEAN CORPUSCULAR HGB CONC 33.1 g/dl (32.0-36.5); MEAN CORPUSCULAR VOLUME 94.3 fl (80.0-96.0); NEUTROPHILS # 5.8 10^3/uL (1.5-8.5); NEUTROPHILS % 61.6 % (36.0-66.0); PLATELET COUNT, AUTOMATED 226 10^3/uL (150-450); RED BLOOD COUNT 5.25 10^6/uL (4.00-5.40); WHITE BLOOD COUNT 9.4 10^3/uL (4.0-10.0)
[2024-07-21 13:29] LABS: ERYTHROCYTE SEDIMENTATION RATE 39 mm/hr (0-20)
== END ==
LOC: M LABDRWAD 12:27
PROVIDERS: ATTEND Nurse Practitioner
DX: T84.7XXD Infection and inflammatory reaction due to other internal orthopedic prosthetic devices, implants and grafts, subsequent encounter (principal)

== ENCOUNTER → 2024-09-23 | Outpatient (REF) | payer OTHER ==
[~2024-09-23] MED LIST changes: -ARIP10TA32 PO; +ARIP10TA63 PO
[2024-09-23 18:37] LABS: BASO # 0.1 10^3/uL (0.0-0.2); BASO % 0.7 % (0.0-1.0); EOS # 0.4 10^3/uL (0.0-0.5); EOS % 2.7 % (0.0-3.0); HEMATOCRIT 50.2 % (36.0-47.0); HEMOGLOBIN 16.1 g/dl (12.0-15.5); LYMPH % 19.6 % (24.0-44.0); MEAN CORPUSCULAR HGB CONC 32.1 g/dl (32.0-36.5); MEAN CORPUSCULAR VOLUME 96.5 fl (80.0-96.0); MONO # 1.4 10^3/uL (0.0-0.8); MONO % 9.3 % (2.0-8.0); NEUTROPHILS # 10.3 10^3/uL (1.5-8.5); PLATELET COUNT, AUTOMATED 282 10^3/uL (150-450); WHITE BLOOD COUNT 15.4 10^3/uL (4.0-10.0)
[2024-09-23 18:51] LABS: ERYTHROCYTE SEDIMENTATION RATE 41 mm/hr (0-20)
[2024-09-23 19:07] LABS: ALBUMIN 3.6 G/DL (3.2-5.2); ALKALINE PHOSPHATASE 100 U/L (35-104); ALT/SGPT 26 U/L (7.0-40); AST/SGOT 13 U/L (<34); BILIRUBIN,TOTAL 0.7 MG/DL (0.3-1.2); BLOOD UREA NITROGEN 16 MG/DL (9-23); CALCIUM LEVEL 9.4 MG/DL (8.5-10.1); CARBON DIOXIDE LEVEL 31 MMOL/L (20-31); CHLORIDE LEVEL 100 MMOL/L (98-107); CREATININE FOR GFR 0.66 MG/DL (0.55-1.30); GLOMERULAR FILTRATION RATE > 60.0 (>58); GLUCOSE, FASTING 96 MG/DL (60-100); POTASSIUM SERUM 3.8 MMOL/L (3.5-5.1); SODIUM LEVEL 139 MMOL/L (136-145); TOTAL PROTEIN 7.4 G/DL (5.7-8.2)
== END ==
LOC: M LABDRAWP 17:31
PROVIDERS: ATTEND Nurse Practitioner
DX: Z79.2 Long term (current) use of antibiotics (principal); T84.7XXD Infection and inflammatory reaction due to other internal orthopedic prosthetic devices, implants and grafts, subsequent encounter

== ENCOUNTER → 2024-10-18 | Outpatient (REF) | payer OTHER ==
[2024-10-18 19:13] LABS: BASO # 0.1 10^3/uL (0.0-0.2); BASO % 0.9 % (0.0-1.0); EOS # 0.4 10^3/uL (0.0-0.5); EOS % 4.6 % (0.0-3.0); HEMATOCRIT 46.3 % (36.0-47.0); HEMOGLOBIN 14.8 g/dl (12.0-15.5); LYMPH # 2.3 10^3/uL (1.5-5.0); LYMPH % 24.8 % (24.0-44.0); MEAN CORPUSCULAR HEMOGLOBIN 30.8 pg (27.0-33.0); MEAN CORPUSCULAR VOLUME 96.3 fl (80.0-96.0); MONO # 0.8 10^3/uL (0.0-0.8); MONO % 8.1 % (2.0-8.0); NEUTROPHILS # 5.8 10^3/uL (1.5-8.5); NEUTROPHILS % 61.3 % (36.0-66.0); PLATELET COUNT, AUTOMATED 271 10^3/uL (150-450); RED BLOOD COUNT 4.81 10^6/uL (4.00-5.40); WHITE BLOOD COUNT 9.4 10^3/uL (4.0-10.0)
[2024-10-18 19:23] LABS: ERYTHROCYTE SEDIMENTATION RATE 38 mm/hr (0-20)
== END ==
LOC: M SHH 17:24
PROVIDERS: ATTEND Nurse Practitioner
DX: T84.7XXD Infection and inflammatory reaction due to other internal orthopedic prosthetic devices, implants and grafts, subsequent encounter (principal)

== ENCOUNTER → 2025-02-17 | Outpatient (REF) | payer OTHER ==
[2025-02-17 10:09] LABS: BASO # 0.1 10^3/uL (0.0-0.2); EOS # 0.5 10^3/uL (0.0-0.5); EOS % 4.9 % (0.0-3.0); HEMATOCRIT 48.7 % (36.0-47.0); HEMOGLOBIN 15.9 g/dl (12.0-15.5); LYMPH # 3.2 10^3/uL (1.5-5.0); LYMPH % 30.1 % (24.0-44.0); MEAN CORPUSCULAR HEMOGLOBIN 31.1 pg (27.0-33.0); MEAN CORPUSCULAR HGB CONC 32.6 g/dl (32.0-36.5); MEAN CORPUSCULAR VOLUME 95.1 fl (80.0-96.0); MONO % 9.3 % (2.0-8.0); NEUTROPHILS # 5.8 10^3/uL (1.5-8.5); NEUTROPHILS % 54.4 % (36.0-66.0); PLATELET COUNT, AUTOMATED 286 10^3/uL (150-450); RED BLOOD COUNT 5.12 10^6/uL (4.00-5.40); WHITE BLOOD COUNT 10.7 10^3/uL (4.0-10.0)
[2025-02-17 10:18] LABS: ERYTHROCYTE SEDIMENTATION RATE 39 mm/hr (0-20)
[2025-02-17 10:34] LABS: ALBUMIN 3.7 G/DL (3.2-5.2); ALKALINE PHOSPHATASE 97 U/L (35-104); ALT/SGPT 28 U/L (7.0-40); AST/SGOT 21 U/L (<34); BILIRUBIN,TOTAL 0.5 MG/DL (0.3-1.2); BLOOD UREA NITROGEN 21 MG/DL (9-23); C REACTIVE PROTEIN QUANTITATIV 2.47 MG/DL (<1.0); CALCIUM LEVEL 9.2 MG/DL (8.5-10.1); CARBON DIOXIDE LEVEL 28 MMOL/L (20-31); CHLORIDE LEVEL 100 MMOL/L (98-107); GLOMERULAR FILTRATION RATE > 60.0 (>58); GLUCOSE, FASTING 102 MG/DL (60-100); POTASSIUM SERUM 4.3 MMOL/L (3.5-5.1); SODIUM LEVEL 138 MMOL/L (136-145); TOTAL PROTEIN 7.3 G/DL (5.7-8.2)
== END ==
LOC: M LAB REF 09:45
PROVIDERS: ATTEND Nurse Practitioner
DX: T84.7XXD Infection and inflammatory reaction due to other internal orthopedic prosthetic devices, implants and grafts, subsequent encounter (principal); Y93.9 Activity, unspecified; Y92.9 Unspecified place or not applicable

== ENCOUNTER → 2025-05-25 | Outpatient (REF) | payer OTHER ==
[~2025-05-25] MED LIST changes: -PRED50TA PO; +PRED50TA57 PO
[2025-05-25 18:43] LABS: ESTIMATED AVERAGE GLUCOSE 111.0 MG/DL (60-110)
[2025-05-25 18:51] LABS: ALT/SGPT 18.0 U/L (7.0-40); AST/SGOT 18.0 U/L (<34); CALCIUM LEVEL 9.1 MG/DL (8.5-10.1); CARBON DIOXIDE LEVEL 28.0 MMOL/L (20-31); CHLORIDE LEVEL 101.0 MMOL/L (98-107); CHOLESTEROL LEVEL 189.0 MG/DL (<200); CHOLESTEROL RISK RATIO 3.96 (<5); CREATININE FOR GFR 0.81 MG/DL (0.55-1.30); GLOMERULAR FILTRATION RATE 89.5 (>58); LDL CHOLESTEROL 116.3 MG/DL (<100); NON-HDL-C 141.3 MG/DL; POTASSIUM SERUM 4.2 MMOL/L (3.5-5.1); SODIUM LEVEL 141.0 MMOL/L (136-145); TRIGLYCERIDES LEVEL 125.0 MG/DL (<150)
[2025-05-25 18:54] LABS: FREE T4 1.17 NG/DL (0.89-1.76)
[2025-05-25 18:55] LABS: TOTAL 25(OH) VITAMIN D 50.9 NG/ML (20.0-100.0); VITAMIN B12 LEVEL 446.0 PG/ML (211-911)
== END ==
LOC: M SFHCADAM 15:14
PROVIDERS: ATTEND Physician Assistant
DX: I10 Essential (primary) hypertension (principal); M79.2 Neuralgia and neuritis, unspecified; M17.0 Bilateral primary osteoarthritis of knee; T84.6 Infection and inflammatory reaction due to internal fixation device; Z13.1 Encounter for screening for diabetes mellitus; B00.1 Herpesviral vesicular dermatitis; E03.9 Hypothyroidism, unspecified; Z13.220 Encounter for screening for lipoid disorders; E66.01 Morbid (severe) obesity due to excess calories